=== PATIENT | female | born 1955 | race African-American/Black ===

== ENCOUNTER 2024-02-01 23:45 | Inpatient (IN) | payer MEDICARE, SELFPAY ==
[2024-02-01 18:31] VITALS: BP 120/87
[2024-02-01 19:40] LABS: % Basophils 0.4 % (0-2); % Eosinophils 1.4 % (0-6); % Immature Granulocytes 0.5 % (0-0.5); % Lymphocytes 22.5 % (20.5-51.1); % Neutrophils 66.2 % (42.2-75.2); Absolute Basophils 0.1 10^3/uL (0-0.2); Absolute Eosinophils 0.2 10^3/uL (0-0.7); Absolute Immature Granulocytes 0.1 10^3/uL (0-0.05); Absolute Monocytes 1.2 10^3/uL (0.1-0.6); Absolute Neutrophils 8.8 10^3/uL (1.4-6.5); Hematocrit 38.9 % (37.0-47.0); Hemoglobin 11.8 g/dL (12.0-16.0); Mean Corp Hgb Conc. 30.3 g/dL (33.0-37.0); Mean Corpuscular Hgb 29.4 pg (27.0-31.0); Mean Platelet Volume 9.2 fL (7.4-10.4); Nucleated Red Blood Cells % 0 %; Platelet Count 309 10^3/uL (130-400); Red Blood Cell Count 4.01 10^6/uL (4.20-5.40); Red Cell Dist. Width 13.2 % (11.5-14.5); White Blood Cell Count 13.2 10^3/uL (4.8-10.8)
[2024-02-01 19:50] LABS: INR 0.98; PT 12.8 Sec (11.4-14.6)
[2024-02-01 19:51] LABS: APTT 26.6 Sec (23.4-35.0)
[2024-02-01 19:59] LABS: ALT (SGPT) 20 U/L (0-35); AST (SGOT) 28 U/L (14-36); Alkaline Phosphatase 77 U/L (38-126); Blood Urea Nitrogen 16 mg/dl (7-17); Calcium 9.7 mg/dl (8.4-10.2); Carbon Dioxide 35 mmol/L (22-30); Chloride 99 mmol/L (98-107); Glucose 111 mg/dl (70-99); Sodium 135 mmol/L (135-145); Total Bilirubin 0.4 mg/dl (0.2-1.3); Total Protein 6.6 g/dl (6.3-8.2); eGFR > 60.00
[2024-02-01 20:00] VITALS: BP 126/85
--- NOTE | 2024-02-01 20:11 | ED.GENMED ---
History of Present Illness
<Emma Villarreal MD - Last Filed: 02/01/24 21:35>
General
Chief Complaint: Rectal Bleeding
Time Seen by Provider: 02/01/24 18:57
Travel History
Have you had any contact with someone who has COVID-19?: No
Do you have any symptoms of coronavirus? Fever > 100 degrees, chills, cough, shortness of breath, sore throat, loss of taste or smell, muscle aches, or headache?: No
<Stephen Garza PA-C - Last Filed: 02/01/24 23:23>
General
Source: patient
Exam Limitations: none
History of Present Illness
History of Present Illness:
69-year-old female with history of COPD not insulin-dependent diabetes presents complaining of increased weakness over the past several days with associated lower abdominal pain and today she developed red blood per rectum. No measurable fever.
She is followed over the past 3 days because of her weakness. She is chronically on 3 and half liters of oxygen at home. She has diffuse abdominal pain. She has a known ventral hernia. No other complaints at this time
Past History
<Emma Villarreal MD - Last Filed: 02/01/24 21:35>
Past History
ED Past Medical History: Asthma, Cancer (Remote history of breast cancer), COPD, NIDDM and Other (Chronic abdominal wall hernia, chronic abdominal pain, upper GI bleed January 2023, Chronic cough, Ulcers)
ED Past Surgical History: Cholecystectomy, Gynecological (Hysterectomy) and Other (left Lumpectomy)
Patient has exhibited threatening behavior?: No
PSI?: No
Social History
Tobacco: Former smoker
Alcohol: Occasional
Drug: None and Other
Personal:
Living: with family
Employment: Retired
Family History
Family History: Other and Unable to obtain
Phy Exam
<Stephen Garza PA-C - Last Filed: 02/01/24 23:23>
Physical Exam
Physical Exam:
General: well appearing female NAD
HEENT: Normocephalic atraumatic
Heart: Tachycardic but regular
Lungs: Mostly clear
Abdomen: Soft tender to the lower abdomen. Large ventral hernia noted. This is slightly tender. There is palpable stool within the hernia
Rectal exam: This was performed with female engineer station mainline in the room. Rectal exam shows red-colored stool is heme positive
Extremities: No cyanosis or edema
Scores
<Emma Villarreal MD - Last Filed: 02/01/24 21:35>
GI Bleed
History of cardiac failure?: No
History of hepatic failure?: No
History of recent syncope?: No
Pulse >100?: Yes
SBP <110?: No
Hgb <13 (male) <12 (female)?: Yes
BUN >18mg/dL?: No
Melena present?: No
Recommendation: Pt has higher risk for needing a medical intervention. Inpatient admission recommended.
<Stephen Garza PA-C - Last Filed: 02/01/24 23:23>
GI Bleed
Recommendation: Pt has higher risk for needing a medical intervention. Inpatient admission recommended.
Course
<Emma Villarreal MD - Last Filed: 02/01/24 21:35>
Orders/Labs/Results
Orders:
Orders
02/01/24 19:21
Type+Screen Urgent
Complete Blood Count/With Diff Urgent
Comprehensive Metabolic Panel Urgent
PTT Urgent
Prothrombin Time Urgent
02/01/24 20:35
CT Abd/pelvis W Iv Cont Urgent
Comment:
Reason For Exam: abdominal pain
02/01/24 20:47
Acetaminophen [Tylenol] 650 mg PO NOW STA
02/01/24 21:00
Diphenhydramine [Benadryl] 50 mg IV NOW STA
Hydrocortisone Sod Succinate [Solu-Cortef] 200 mg IV NOW STA
02/01/24 23:15
Piperacillin/Tazo 3.375 Gram [Zosyn] 3.375 gram in 50 ml IV NOW
Abnormal Lab Results
02/01/24
19:21
WBC 13.2 H 10^3/uL
(4.8-10.8)
RBC 4.01 L 10^6/uL
(4.20-5.40)
Hgb 11.8 L g/dL
(12.0-16.0)
MCHC 30.3 L g/dL
(33.0-37.0)
Abs Immat Gran (auto) 0.1 H 10^3/uL
(0-0.05)
Absolute Neuts (auto) 8.8 H 10^3/uL
(1.4-6.5)
Absolute Monos (auto) 1.2 H 10^3/uL
(0.1-0.6)
Carbon Dioxide 35 H mmol/L
(22-30)
Glucose 111 H mg/dl
(70-99)
02/01/24 19:21
02/01/24 19:21
Vital Signs
Initial and Last Documented VS:
Initial Vital Signs
Temp Pulse Resp BP Pulse Ox
98.2 F 130 16 120/87 96
02/01/24 18:31 02/01/24 18:31 02/01/24 18:31 02/01/24 18:31 02/01/24 18:31
Last Documented Vital Signs
Temp Pulse Resp BP Pulse Ox
98.2 F 103 24 129/72 100
02/01/24 18:31 02/01/24 23:00 02/01/24 23:00 02/01/24 22:00 02/01/24 23:00
<Stephen Garza PA-C - Last Filed: 02/01/24 23:23>
Orders/Labs/Results
Orders:
Orders
02/01/24 19:21
Type+Screen Urgent
Complete Blood Count/With Diff Urgent
Comprehensive Metabolic Panel Urgent
PTT Urgent
Prothrombin Time Urgent
02/01/24 20:35
CT Abd/pelvis W Iv Cont Urgent
Comment:
Reason For Exam: abdominal pain
02/01/24 20:47
Acetaminophen [Tylenol] 650 mg PO NOW STA
02/01/24 21:00
Diphenhydramine [Benadryl] 50 mg IV NOW STA
Hydrocortisone Sod Succinate [Solu-Cortef] 200 mg IV NOW STA
02/01/24 23:15
Piperacillin/Tazo 3.375 Gram [Zosyn] 3.375 gram in 50 ml IV NOW
Abnormal Lab Results
02/01/24
19:21
WBC 13.2 H 10^3/uL
(4.8-10.8)
RBC 4.01 L 10^6/uL
(4.20-5.40)
Hgb 11.8 L g/dL
(12.0-16.0)
MCHC 30.3 L g/dL
(33.0-37.0)
Abs Immat Gran (auto) 0.1 H 10^3/uL
(0-0.05)
Absolute Neuts (auto) 8.8 H 10^3/uL
(1.4-6.5)
Absolute Monos (auto) 1.2 H 10^3/uL
(0.1-0.6)
Carbon Dioxide 35 H mmol/L
(22-30)
Glucose 111 H mg/dl
(70-99)
02/01/24 19:21
02/01/24 19:21
Vital Signs
Initial and Last Documented VS:
Initial Vital Signs
Temp Pulse Resp BP Pulse Ox
98.2 F 130 16 120/87 96
02/01/24 18:31 02/01/24 18:31 02/01/24 18:31 02/01/24 18:31 02/01/24 18:31
Last Documented Vital Signs
Temp Pulse Resp BP Pulse Ox
98.2 F 103 24 129/72 100
02/01/24 18:31 02/01/24 23:00 02/01/24 23:00 02/01/24 22:00 02/01/24 23:00
<Stephen Garza PA-C - Last Filed: 02/01/24 23:23>
MDM/Problems Addressed
Differential Diagnosis Includes:
Abdominal pain with rectal bleeding. Differential could include hemorrhoidal bleeding versus diverticular versus infectious process. Question possible bowel obstruction secondary to large hernia
Will check labs. Patient not anticoagulated.
<Stephen Garza PA-C - Last Filed: 02/01/24 23:23>
*Critical Care Note
Total Time (30-74mins, 75-104mins- exclusive of procedures): Not Applicable
<Stephen Garza PA-C - Last Filed: 02/01/24 23:23>
Update Note
Update Note:
CT ordered secondary to pain and bleeding. CT demonstrates severe acute proctitis. There is a large hernia without sign of obstruction. There is a large amount of stool in the colon to suggest constipation. Hemoglobin 11.8. White blood cell
count is elevated at 13.2 and patient is tachycardic. Will start patient on Zosyn to cover for proctitis. Discussed with emergency room attending. Will admit to hospital
ED Attending Note
<Emma Villarreal MD - Last Filed: 02/01/24 21:35>
ED Attending Note
Patient seen and examined by attending physician: Yes
I performed the substantive portion of visit, reviewed & personally made and approve the management plan that is documented in note by myself or ALBERT.: Yes
ED Attending Note:
69-year-old female with complaints of bright red blood per rectum x 3 prior to presentation associated with increased shortness of breath and oxygen use and weakness. Patient has a large abdominal hernia which has limited ability to get a
colonoscopy in the past. Does have a history of an upper GI bleed. Denies anticoagulant use. Noted to be heme positive here in the emergency department, mild anemia noted. Patient states she typically has tachycardia. CT pending, anticipate
admission, GI consult. Stable at this time.
-
Portions of this chart may have been created with voice recognition software.� Occasional wrong word or��sound alike� substitutions may have occurred due to the inherent limitations of voice recognition software.
Discharge Plan
Departure
Patient Disposition: Admit
Date of Disposition: 02/01/24
Time of Disposition: 23:21
Admit to: Telemetry
Presentation/result/management discussed w/ accepting MD/DO: Hospitalist
Discharge Problem:
Rectal bleeding, Acute proctitis
Prescriptions:
No Action
multivitamin with folic acid [Tab-A-Charles] 1 TABLET tablet
1 tab PO DAILY
tiotropium bromide [Spiriva with HandiHaler] 18 mcg Capsule, W/Inhalation Device
1 cap INHALATION R DAILY
Corlanor 5 mg Tablet
5 mg PO BID
Linzess 145 mcg Capsule
145 mcg PO DAILY
Trintellix 20 mg Tablet
20 mg PO DAILY
fluticasone propion-salmeterol [Advair Diskus] 250-50 mcg/dose blister with device
1 inh INHALATION R BID
ondansetron HCl 8 mg tablet
8 mg PO BID
rosuvastatin 5 mg tablet
5 mg PO HS
bupropion HCl 300 mg tablet extended release 24 hr
300 mg PO DAILY
levocetirizine 5 mg tablet
5 mg PO QPM
dexlansoprazole 60 mg capsule,biphase delayed releas
60 mg PO DAILY
nifedipine 30 mg tablet extended release
30 mg PO DAILY Qty: 30 0RF
prednisone 5 mg tablet
5 mg PO BID
sennosides [senna] 8.6 mg Tablet
17.2 mg PO HS
lactulose 10 gram/15 mL (15 mL) Solution
10 g PO DAILYPRN PRN (Reason: CONSTIPATION)
levalbuterol HCl 0.63 mg/3 mL Solution For Nebulization
0.63 mg inhalation R Q6HPRN PRN (Reason: SOB or wheezing) Qty: 72 0RF
acetaminophen [Tylenol] 325 mg Tablet
1,300 mg PO BIDPRN PRN (Reason: mild stomach pains)
zolpidem [Ambien CR] 6.25 mg Tablet,Ext Release Multiphase
6.25 mg PO HSPRN PRN (Reason: sleep)
polyethylene glycol 3350 [Miralax] 17 gram powder in packet
17 g PO DAILYPRN PRN (Reason: constipation)
hydrocodone-acetaminophen 7.5-325 mg tablet
1 tab PO Q8HPRN PRN (Reason: moderate pain)
docusate sodium [Colace] 100 mg capsule
100 mg PO QPM
alprazolam 2 mg tablet
2 mg PO QIDPRN PRN (Reason: anxiety)
Referrals:
Scott Monroe CRNP [Family Provider] -
Interventions
Interventions:
*Risk Screen - Suicide Last Done: 02/01/24 18:31
*General Assessment Last Done: 02/01/24 18:31
*Neglect/Abuse Screening Last Done: 02/01/24 18:31
ED- Fall Risk Assessment Last Done: 02/01/24 19:18
*ED COVID-19 Vaccine History Last Done: 02/01/24 19:14
PU-Cbziej-Hwzhjgujxv Assessment Last Done: 02/01/24 19:18
ED- Cardiac Assessment Last Done: 02/01/24 19:18
ED- Pulmonary Assessment Last Done: 02/01/24 19:18
Discharge Date and Time
Print Language: POLISH
[2024-02-01] MEDS: TYLENOL 650 MG PO (20:56)
[2024-02-01 21:00] VITALS: BP 108/67
[2024-02-01] MEDS: SOLU-CORTEF 200 MG IV (21:04)
[2024-02-01] MEDS: BENADRYL 50 MG IV (21:05)
[2024-02-01 22:00] VITALS: BP 129/72
[2024-02-01] MEDS: ZOSYN 50 IV (23:50)
[2024-02-01 23:51] VITALS: BP 141/91
--- NOTE | 2024-02-01 23:56 | HPS.HSE ---
Family Physician
-
Family Physician: Scott Monroe
Chief Complaint
-
Rectal Pain / Bleeding
History of Present Illness
Patient is a 69y F with PMH significant for severe COPD, large ventral hernia and chronic hypoxemia and hypercapnia who presents to ED complaining of rectal discomfort and bleeding. History obtained from patient and ED staff. At the time of my
examination, patient is quite somnolent and has limited ability to contribute to this history. She reports lower abdominal discomfort and noted some blood in the stool. Not clear how long this has been present.
No noted N/V. She has a large ventral hernia which is chronic and not significantly changed.
Patient is on chronic NC O2 at home, but is noted to be 100% SpO2 on room air here in the ED.
Medical History
Past Medical History
Past Medical History: Reports Other
Additional Past Medical History:
COPD
Chronic Hypoxemic and Hypercapnic Respiratory Failure
Anxiety / Depression
History of Breast Cancer s/p Surgery, Chemo and XRT
Large Ventral Hernia
Past Surgical History: Reports Other
Additional Past Surgical History:
Lumpectomy
Social History
Tobacco: Former Smoker (Quit 1-2 years ago. > 40 pack years total use.)
Alcohol: None
Drug: None
Living: With Family
Family History
Family History: Not pertinent
Allergies / Home Medications
Allergies reflects when Allergies were last updated in [employer].
Home Medications with original date entered in [facility]
Allergy/Medication List:
Allergies
Allergy/AdvReac Type Severity Reaction Status Date / Time
Iodinated Contrast Media Allergy Tongue Verified 02/01/24 18:31
Swelling
Iodine and Iodide Containing Allergy Tongue Verified 02/01/24 18:31
Produc Swelling
shellfish derived Allergy Tongue Verified 02/01/24 18:31
Swelling
aspirin AdvReac Nausea / Verified 02/01/24 18:31
Vomiting
Home Medications
multivitamin with folic acid 400 mcg tablet (Tab-A-Charles) 1 tab PO DAILY Supplement 02/28/22
bupropion HCl 300 mg 24 hr tablet, extended release 300 mg PO DAILY Mental Health/Anxiety 02/04/23
dexlansoprazole 60 mg capsule,biphase delayed release 60 mg PO DAILY Gastrointestinal issue 02/04/23
fluticasone 250 mcg-salmeterol 50 mcg/dose blistr powdr for inhalation (Advair Diskus) 1 inh inhalation R BID Lung/breathing issues 02/04/23
ivabradine 5 mg tablet (Corlanor) 5 mg PO BID Heart disease/condition 02/04/23
levocetirizine 5 mg tablet 5 mg PO QPM Allergies 02/04/23
linaclotide 145 mcg capsule (Linzess) 145 mcg PO DAILY Constipation 02/04/23
ondansetron HCl 8 mg tablet 8 mg PO BID 02/04/23
rosuvastatin 5 mg tablet 5 mg PO HS High cholesterol 02/04/23
tiotropium bromide 18 mcg capsule with inhalation device (Spiriva with HandiHaler) 1 cap inhalation R DAILY Lung/breathing issues 02/04/23
vortioxetine 20 mg tablet (Trintellix) 20 mg PO DAILY Mental Health/Anxiety 02/04/23
nifedipine 30 mg tablet,extended release 30 mg PO DAILY #30 tabs 02/12/23
prednisone 5 mg tablet 5 mg PO BID Anti-Inflammatory 05/30/23
lactulose 10 gram/15 mL (15 mL) oral solution 10 g PO DAILYPRN PRN CONSTIPATION 05/31/23
sennosides 8.6 mg tablet (senna) 17.2 mg PO HS Constipation 05/31/23
levalbuterol HCl 0.63 mg/3 mL solution for nebulization 0.63 mg (3 mL) inhalation R Q6HPRN PRN SOB or wheezing #72 mL 06/05/23
acetaminophen 325 mg tablet (Tylenol) 1,300 mg PO BIDPRN PRN mild stomach pains 02/01/24
alprazolam 2 mg tablet 2 mg PO QIDPRN PRN anxiety 02/01/24
docusate sodium 100 mg capsule (Colace) 100 mg PO QPM Constipation 02/01/24
hydrocodone 7.5 mg-acetaminophen 325 mg tablet 1 tab PO Q8HPRN PRN moderate pain 02/01/24
polyethylene glycol 3350 17 gram oral powder packet (Miralax) 17 g PO DAILYPRN PRN constipation 02/01/24
zolpidem 6.25 mg tablet,extended release,multiphase (Ambien CR) 6.25 mg PO HSPRN PRN sleep 02/01/24
Review of Systems
-
History Source: Patient (Limited ROS due to somnolence)
A 12 point ROS was completed and negative except as noted: Yes
Constitutional: Denies Fever
Respiratory: Reports Trouble Breathing; Denies Cough
Cardiac: Denies Chest Pain
Abdomen/GI: Reports Abdominal Pain, Constipated and Bloody Stools; Denies Nausea or Vomiting
: Denies Dysuria
Neurological: Denies Headache
Physical Exam
Vital Signs
Vital Signs
Temp Pulse Resp BP Pulse Ox
97.7 F 106 32 141/91 97
02/01/24 23:51 02/01/24 23:51 02/01/24 23:51 02/01/24 23:51 02/01/24 23:51
Physical Exam
General: Other (69y F somnolent in the ED. Awakens to answer Y/N questions but falls quickly back to sleep. Does not answer long form / open ended questions.)
HEENT: Moist mucous membranes and PERRLA
Respiratory: Other (Decreased at Bases. No W/R/R.)
Cardiac: S1/S2 and Regular Rhythm; No Murmur
GI: Other (Large ventral hernia is appreciated. Mild tenderness. Rectal with BRB / heme positive.)
Musculoskeletal: No Clubbing, No Cyanosis and No Edema
Neuro: Other (Somnolent as noted above.)
Laboratory Results
-
02/01/24 19:21
02/01/24 19:21
Laboratory Results
PT 12.8 Sec (11.4-14.6) 02/01/24 19:21
INR 0.98 02/01/24 19:21
APTT 26.6 Sec (23.4-35.0) 02/01/24 19:
Total Bilirubin 0.4 mg/dl (0.2-1.3) 02/01/24 19:21
AST 28 U/L (14-36) 02/01/24 19:21
ALT 20 U/L (0-35) 02/01/24 19:21
Alkaline Phosphatase 77 U/L (38-126) 02/01/24 19:21
Impression/Plan
-
A/P: Patient is a 69y F with PMH significant for COPD, chronic mixed respiratory failure and large ventral hernia who presents to ED complaining of abdominal pain and BRBPR.
Acute Proctitis
BRBPR secondary to the above
- Admit for further evaluation and treatment.
- ? infectious (likely) versus ischemic versus other.
- IV abx for now.
- Follow H&H and monitor for any new / worsening symptoms.
- GI evaluation.
- CT scan with additional abnormalities including SEED TECHNICIAN inflammation - ? secondary to proctitis versus primary SEED TECHNICIAN issue.
- Consider SEED TECHNICIAN eval inpatient / outpatient.
Acute on Chronic Hypercapnic Respiratory Failure
Chronic Hypoxemic Respiratory Failure
Severe COPD
- Patient somnolent in the ED with very good oxygen saturations on minimal / no supplemental O2.
- Concern for hypercapnia and will check VBG now.
- Begin PAP therapy if CO2 levels are elevated.
- Continue usual outpatient inhaled medications.
- No active wheezing appreciated on exam. No recent cough, fevers /chills, etc.
- Adjust O2 supplementation for acceptable SpO2, but to avoid hypercapnia if possible.
- Patient denies any current PAP use or similar - though she was on CPAP and / or Trilogy in the past.
- Avoid high rates of O2 flow for subjective dyspnea without hypoxemia.
Large Ventral Hernia
- Hernia seen on CT scan with included bowel and portion of the liver.
- No evidence of obstruction / apparent strangulation / etc.
- Chronic issue and suspect would be prohibitive repair given size, underlying pulmonary issues, etc.
- Follow for any new / worsening symptoms.
Anxiety / Depression
- Stable. Patient on multiple meds - including Ambien, Ativan, etc.
- Would try to decrease / minimize sedating agents - especially given hypercapnia issues.
- Continue Wellbutrin / Trintellix / etc.
- Follow for any new / worsening symptoms.
Chronic Anemia
GERD / PUD
- Stable. Hgb is actually higher than usual baseline despite rectal bleeding.
- Continue daily PPI.
DVT Prophylaxis: Subcut Heparin
Code Status: Full
[2024-02-01 23:57] LABS: Venous Blood Gas B.E. 10.5 mmol/L (-4 to +4); Venous Blood Gas HCO3 37.5 mmol/L (22-27); Venous Blood Gas O2 Sat % 98.6 %; Venous Blood Gas pCO2 62 mmHg (35-48); Venous Blood Gas pH 7.39 (7.32-7.43); Venous Blood Gas pO2 114 mmHg (30-50)
[2024-02-02] VITALS (17 sets, daily range): BP systolic 106–142; BP diastolic 60–90; PULSE 105–130; O2SAT 94–95; BMI 20.2; BMI 20.4
[2024-02-02 01:09] LABS: Hematocrit 37.7 % (37.0-47.0)
[2024-02-02] MEDS: MORPHINE SULFATE 2 MG IV ×3 (01:12→17:24)
[2024-02-02] MEDS: COMPAZINE 5 MG IV ×2 (01:12→18:37)
[2024-02-02 01:55] LABS: TSH Reflex To Free T4 0.22 uIU/ml (0.47-4.68)
[2024-02-02 02:25] LABS: Free T4 1.39 ng/dl (0.78-2.19)
--- NOTE | 2024-02-02 02:44 | PTCARENOTE ---
pt admitted from ED, pt is AAOx3- able to make needs known. large abdominal hernia present, pt states abdomen is painful specifically right side. pt medicated with PRN morphine. 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
ordered and given. pt on 2.5L of oxygen at home, on 2L NC 99%. no SOB but some wheezes noted. pt oriented to room, call jackson within reach, care ongoing.
[2024-02-02 05:13] LABS: Hematocrit 34.8 % (37.0-47.0); Hemoglobin 11.2 g/dL (12.0-16.0); Mean Corp Hgb Conc. 32.2 g/dL (33.0-37.0); Mean Corpuscular Hgb 29.8 pg (27.0-31.0); Mean Corpuscular Volume 92.6 fL (81.0-99.0); Mean Platelet Volume 9.1 fL (7.4-10.4); Platelet Count 290 10^3/uL (130-400); Red Blood Cell Count 3.76 10^6/uL (4.20-5.40); Red Cell Dist. Width 13.2 % (11.5-14.5); White Blood Cell Count 9.8 10^3/uL (4.8-10.8)
[2024-02-02] MEDS: ZOSYN 50 IV ×3 (05:19→17:24)
[2024-02-02] MEDS: LINZESS 145 MCG PO (05:19)
[2024-02-02 06:24] LABS: Blood Urea Nitrogen 13 mg/dl (7-17); Calcium 9.2 mg/dl (8.4-10.2); Carbon Dioxide 32 mmol/L (22-30); Chloride 100 mmol/L (98-107); Estimated Creatinine Clearance 70 ml/min; Glucose 133 mg/dl (70-99); Potassium 4.1 mmol/L (3.5-5.1); Sodium 134 mmol/L (135-145); eGFR > 60.00
[2024-02-02] MEDS: SPIRIVA RESPIMAT 2.5 MCG 2 PUFF INH (08:07)
[2024-02-02] MEDS: ADVAIR HFA 115/21 MCG INHALER 2 PUFF INH ×2 (08:07→18:16)
[2024-02-02] MEDS: WELLBUTRIN XL (24 hour extended release) 300 MG PO (08:08)
[2024-02-02] MEDS: NSS (PRESERVATIVE FREE) 10 ML IV (08:08)
[2024-02-02] MEDS: COLACE 100 MG PO ×2 (08:08→21:16)
[2024-02-02] MEDS: PROTONIX IV 40 MG IV (08:08)
[2024-02-02] MEDS: DELTASONE 5 MG PO ×2 (08:08→21:16)
[2024-02-02] MEDS: PROCARDIA XL (EXTENDED RELEASE) 30 MG PO (08:08)
--- NOTE | 2024-02-02 08:10 | CON.GI ---
Consultation
-
Date/Time Consultation Performed: 02/02/24
Performing Provider: Ar Bullock MD
Reason for Consultation: abdominal pain, abnormal CT
Medical History
Chief Complaint / HPI
Chief Complaint: abdominal pain
History of Present Illness:
The patient is a 69-year-old female past medical history as noted presents with abdominal pain and bleeding. She has chronic abdominal pain related to her large ventral hernia which has been chronic. More recently she has had intermittent pain
related to this especially when she feels more constipated. She has had some bright red blood with bowel movements as well, and felt fatigued yesterday so came to the emergency room where she was found to have a hemoglobin that is better than her
usual baseline. CT scan showed significant proctitis as well as multiple other abnormalities including pelvic organ prolapse, again the large midline hernia, diverticulosis and large fecal material, along with paraesophageal hernia and mild biliary
dilation. The proctitis was not noted on CT scan from October. She has had 2 colonoscopies at the [facility] over the past 10 years which have been okay by her report. She did have an endoscopy in February 2023 after coffee-ground
emesis after intubation and was noted to have severe esophagitis. She did not follow-up for repeat endoscopy. She usually follows up with [facility] though has been hesitant to do any further procedures given her severe COPD. She
denies any dysphagia, odynophagia, nausea or vomiting now.
Past Medical History
Past Medical History: Other (severe COPD, large ventral hernia and chronic hypoxemia and hypercapnia, Anxiety / Depression History of Breast Cancer s/p Surgery, Chemo and XRT)
Past Surgical History: Other (Lumpectomy)
Social History
Tobacco: Former Smoker
Alcohol: None
Family History
Family History: Reviewed & Not Pertinent
Allergies / Home Medications
Allergy/AdvReac Type Severity Reaction Status Date / Time
Iodinated Contrast Media Allergy Tongue Verified 02/01/24 18:31
Swelling
Iodine and Iodide Containing Allergy Tongue Verified 02/01/24 18:31
Produc Swelling
shellfish derived Allergy Tongue Verified 02/01/24 18:31
Swelling
aspirin AdvReac Nausea / Verified 02/01/24 18:31
Vomiting
�Medication �Instructions �Recorded
multivitamin with folic acid 400 1 tab PO DAILY Supplement 02/28/22
mcg tablet (Tab-A-Charles)
bupropion HCl 300 mg 24 hr tablet, 300 mg PO DAILY Mental 02/04/23
extended release Health/Anxiety
dexlansoprazole 60 mg 60 mg PO DAILY Gastrointestinal 02/04/23
capsule,biphase delayed release issue
fluticasone 250 mcg-salmeterol 50 1 inh inhalation R BID 02/04/23
mcg/dose blistr powdr for Lung/breathing issues
inhalation (Advair Diskus)
ivabradine 5 mg tablet (Corlanor) 5 mg PO BID Heart disease/condition 02/04/23
levocetirizine 5 mg tablet 5 mg PO QPM Allergies 02/04/23
linaclotide 145 mcg capsule 145 mcg PO DAILY Constipation 02/04/23
(Linzess)
ondansetron HCl 8 mg tablet 8 mg PO BID 02/04/23
rosuvastatin 5 mg tablet 5 mg PO HS High cholesterol 02/04/23
tiotropium bromide 18 mcg capsule 1 cap inhalation R DAILY 02/04/23
with inhalation device (Spiriva Lung/breathing issues
with HandiHaler)
vortioxetine 20 mg tablet 20 mg PO DAILY Mental 02/04/23
(Trintellix) Health/Anxiety
nifedipine 30 mg tablet,extended 30 mg PO DAILY #30 tabs 02/12/23
release
prednisone 5 mg tablet 5 mg PO BID Anti-Inflammatory 05/30/23
lactulose 10 gram/15 mL (15 mL) 10 g PO DAILYPRN PRN CONSTIPATION 05/31/23
oral solution
sennosides 8.6 mg tablet (senna) 17.2 mg PO HS Constipation 05/31/23
levalbuterol HCl 0.63 mg/3 mL 0.63 mg (3 mL) inhalation R Q6HPRN 06/05/23
solution for nebulization PRN SOB or wheezing #72 mL
acetaminophen 325 mg tablet 1,300 mg PO BIDPRN PRN mild 02/01/24
(Tylenol) stomach pains
alprazolam 2 mg tablet 2 mg PO QIDPRN PRN anxiety 02/01/24
docusate sodium 100 mg capsule 100 mg PO QPM Constipation 02/01/24
(Colace)
hydrocodone 7.5 mg-acetaminophen 1 tab PO Q8HPRN PRN moderate pain 02/01/24
325 mg tablet
polyethylene glycol 3350 17 gram 17 g PO DAILYPRN PRN constipation 02/01/24
oral powder packet (Miralax)
zolpidem 6.25 mg tablet,extended 6.25 mg PO HSPRN PRN sleep 02/01/24
release,multiphase (Ambien CR)
Review of Systems
-
All other systems: A 12 pt ROS was Negative except as stated above in HPI
Vital Signs
Temp Pulse Resp BP Pulse Ox
97.9 F 97 23 111/79 99
02/02/24 03:35 02/02/24 06:00 02/02/24 06:00 02/02/24 06:00 02/02/24 04:00
Physical Exam
Exam
General: NAD
HEENT: MMM, anicteric, no lymphadenopathy
Heart: Regular, no murmurs
Lungs: Decreased breath sounds bilaterally
Abdomen: normal bowel sounds, soft, no tenderness, no rebound or guarding, large midline hernia which is soft
Extremeties: no edema
Skin: no rashes
Results
WBC 9.8 10^3/uL (4.8-10.8) 02/02/24 04:53
Hgb 11.2 g/dL (12.0-16.0) L 02/02/24 04:53
Hct 34.8 % (37.0-47.0) L 02/02/24 04:53
MCV 92.6 fL (81.0-99.0) 02/02/24 04:53
Plt Count 290 10^3/uL (130-400) 02/02/24 04:53
Absolute Neuts (auto) 8.8 10^3/uL (1.4-6.5) H 02/01/24 19:21
PT 12.8 Sec (11.4-14.6) 02/01/24 19:21
INR 0.98 02/01/24 19:21
APTT 26.6 Sec (23.4-35.0) 02/01/24 19:21
Sodium 134 mmol/L (135-145) L 02/02/24 04:53
Potassium 4.1 mmol/L (3.5-5.1) 02/02/24 04:53
Chloride 100 mmol/L (98-107) 02/02/24 04:53
Carbon Dioxide 32 mmol/L (22-30) H 02/02/24 04:53
BUN 13 mg/dl (7-17) 02/02/24 04:53
Creatinine 0.5 mg/dL (0.6-1.0) L 02/02/24 04:53
Calcium 9.2 mg/dl (8.4-10.2) 02/02/24 04:53
Total Bilirubin 0.4 mg/dl (0.2-1.3) 02/01/24 19:21
AST 28 U/L (14-36) 02/01/24 19:21
ALT 20 U/L (0-35) 02/01/24 19:21
Alkaline Phosphatase 77 U/L (38-126) 02/01/24 19:21
Diagnostic Image Results:
CT:
IMPRESSION:
1. Moderate circumferential irregular wall thickening and submucosal edema in the rectum which is new from 11/05/2023 and is likely secondary to an ACUTE INFECTIOUS or INFLAMMATORY PROCTITIS. Rectal adenocarcinoma is a less likely alternative
diagnostic possibility.
2. PELVIC ORGAN PROLAPSE with a cystocele, vaginal prolapse, and rectocele. Large amount of soft tissue thickening around the vagina which could be inflammatory or infectious in etiology. Vaginal carcinoma is an alternative diagnostic possibility.
3. Moderate diverticulosis in the sigmoid and descending colon.
4. LARGE MIDLINE SUPRAUMBILICAL ANTERIOR ABDOMINAL WALL HERNIA containing distended fecal filled loops of transverse colon and the lateral segment of the left lobe of the liver.
5. Large amount of fecal material in the ascending and transverse colon consistent with CONSTIPATION.
6. Moderate-sized paraesophageal hiatal hernia.
7. Mild biliary dilatation which appears to be secondary to previous cholecystectomy.
8. Severe calcific atherosclerotic plaque in the abdominal aorta.
9. 4.2 cm cyst, seroma, or lymphocele in the left side of the pelvis which appears unchanged.
10. Severe discogenic degenerative disease in the lower lumbar spine.
11. Mild bronchiolitis in the lower lungs.
Prior GI Procedures:
EGD:
03/20:
Impression: - Severe esophagitis with ulceration and large
overlying clot
- Erosive gastropathy with stigmata of recent bleeding.
- Normal examined duodenum.
- No specimens collected.
Colonoscopy:
Assessment / Plan
-
1. Bright red blood per rectum: With proctitis noted on CT scan which was not present on October CT scan, more likely from stercoral proctitis given her chronic constipation which is multifactorial. Her hemoglobin is better than baseline and
remained stable, no signs of brisk active bleeding now. She has had 2 colonoscopies over the past 10 years, and underlying malignancy is very unlikely though not completely excluded. At this point would continue supportive care, clear liquids for
now. Will plan unsedated flexible sigmoidoscopy on Sunday.
-
-
Thank you for consultation and allowing me to participate in the patient's care. Please call the recreation specialist GI physician during the after hours with any questions or concerns.
[2024-02-02 09:17] LABS: Hemoglobin 11.5 g/dL (12.0-16.0)
--- NOTE | 2024-02-02 10:14 | W.PN.HOSP.TC ---
Today's Communication/Plan
-
Continue with antibiotics. Await GI input. Continue with clear liquids.
Consult SUPERVISOR COLOR MAKING.
BiPAP as needed with change in mental status
Assessment / Plan
Assessment / Plan
A/P: Patient is a 69y F with PMH significant for COPD, chronic mixed respiratory failure and large ventral hernia who presents to ED complaining of abdominal pain and BRBPR.
Acute Proctitis
BRBPR secondary to the above
- Admit for further evaluation and treatment.
- ? infectious (likely) versus ischemic versus other.
- IV abx for now.
- Follow H&H and monitor for any new / worsening symptoms.
- GI evaluation.
- CT scan with additional abnormalities including SUPERVISOR COLOR MAKING inflammation - ? secondary to proctitis versus primary SUPERVISOR COLOR MAKING issue.
- Consult SUPERVISOR COLOR MAKING for eval
Chronic Hypercapnic hypoxemic respiratory Failure-no acute component.
Intolerant of BiPAP set up at home [was set up after recent discharge from the hospital]
Compensated respiratory acidosis
Chronic O2 use-2 L
Severe COPD without flare
- Patient is alert without any respiratory distress. Saturating well on 2 L which is her home O2.
- Continue usual outpatient inhaled medications. Continue the home O2
- No active wheezing appreciated on exam. No recent cough, fevers /chills, etc.
- Continue to encourage use of BiPAP at home. Use BiPAP as needed in the hospital. Stressed about the importance of BiPAP to prevent respiratory complications.
Large Ventral Hernia
- Hernia seen on CT scan with included bowel and portion of the liver.
- No evidence of obstruction / apparent strangulation / etc.
- Chronic issue and suspect would be prohibitive repair given size, underlying pulmonary issues, etc.
- Follow for any new / worsening symptoms.
Anxiety / Depression
- Stable. Patient on multiple meds - including Ambien, Ativan, etc.
- Would try to decrease / minimize sedating agents - especially given hypercapnia issues.
- Continue Wellbutrin / Trintellix / etc.
- Follow for any new / worsening symptoms.
Chronic Anemia
GERD / PUD
- Stable. Hgb is actually higher than usual baseline despite rectal bleeding.
- Continue daily PPI.
DVT Prophylaxis: Subcut Heparin
Code Status: Full
Total time spent on today's encounter was 52 minutes which included time spent in counseling the patient regarding diagnosis and treatment plan as listed above, goals of care, and symptom management. Case was discussed with nursing staff,
specialists, and care coordinators/case management. All labs and imaging personally reviewed by me. Remainder the time spent in detailed review of previous records, lab data, imaging, and other medical provider documentation.
Anticipated Discharge: > 48 hours
Subjective/Interval History
-
Date of Service: February 02, 2024
Rectal pain is okay.
Denies any further rectal bleeding this morning.
No nausea vomiting.
Denies any fever or chills.
Denies any pelvic organ prolapse. Denies any vaginal prolapse. Denies any vaginal symptoms. She is noticing some issues with urinary stream sometimes she has to strain little harder.
Objective Data
-
Labs:
Laboratory Results
02/02/24 02/02/24 02/02/24
01:04 04:53 08:56
WBC 9.8
Hgb 12.0 11.2 L 11.5 L
Hct 37.7 34.8 L 36.0 L
Plt Count 290
Sodium 134 L
Potassium 4.1
Chloride 100
Carbon Dioxide 32 H
BUN 13
Creatinine 0.5 L
Glucose 133 H
Calcium 9.2
02/02/24
16:30
WBC
Hgb Pending
Hct Pending
Plt Count
Sodium
Potassium
Chloride
Carbon Dioxide
BUN
Creatinine
Glucose
Calcium
Vital Signs:
Vital Signs
Temp Pulse Resp BP Pulse Ox
98.1 F 102 16 112/60 96
02/02/24 07:18 02/02/24 08:22 02/02/24 08:22 02/02/24 08:08 02/02/24 08:22
I&O
02/01/24 02/02/24 02/03/24
06:59 06:59 06:59
Intake Total 290 / 290
Balance 290 / 290
Review of Systems
-
Constitutional: Denies Fever
EENT: Denies Sore Throat
Respiratory: Reports Trouble Breathing (Chronically short of breath from COPD. Denies any neurochanges.); Denies Cough
Cardiac: Denies Chest Pain
Genitourinary: Denies Dysuria
Neuro: Denies Dizzy
Physical Exam
-
General: No Apparent Distress
HEENT: Moist Mucous Membranes
Respiratory: Non Labored Respirations and Decreased Breath Sounds (In general); Negative Wheezes, Crackles or Accessory Resp Muscle Use
Cardiac: Regular Rhythm, S1/S2 and Tachycardic
GI: Soft, Nontender, Nondistended, Normal Bowel Sounds and Other (Ventral hernia)
Neuro: AO x 3
Psych: Calm
Data Reviewed
-
CT Scan: Report Reviewed by me (ct a/p)
Labs: Labs Reviewed by me
[2024-02-02] MEDS: XANAX 2 MG PO ×2 (13:08→21:16)
--- NOTE | 2024-02-02 17:03 | CON.MD ---
Addendum entered and electronically signed by Maribel Lynch DO 02/02/24 17:52:
Possible underlying tissue inflammatory response related to surrounding inflammatory process/proctitis no overt abnormal external findings of vulva/vagina showing inflammation, edema or swelling, infection.
Original Note:
Consultation - Medical
-
69 yo MP female was admitted with c/o BRBPR and dx proctitis. Consult requested due to CT imaging demonstrating 'large amount of soft tissue thickening in the perineum and around the vagina. ' Pt had hx of total hysterectomy and unilateral
oopherectomy (she is unsure which side) performed due to hemorrhage.
She denies any pelvic pain or abnormal vaginal discharge. No itching or burning.
PMH: breast cancer s/p lumpectomy, Chemo, XRT; acute proctitis, COPD, chronic hypoexmic hypercapneic respiratory failure, anxiety/depression, ventral hernia
PSH: lumpectomy, total hysterectomy unilat oopherectomy
ALL: IV contrast, shellfish, aspirin
Meds: reviewed
Sochx: quit tobacco 1-2 yrs ago (>40 yr use), denies Etoh, drug use
Famx: noncontributory
ROS: does not add
PE:
large ventral hernia noted
Vulvar skin without concerning lesions or swelling. Perineum normal appearance, no swelling or edema.
Vaginal tissue atrophic lining, pink, smooth, no swelling, edema or lesions. No abnormal discharge/no discharge noted
Urethra normal appearance.
Stage 2 cystocele, stage 2 rectocele.
Bimanual exam: nontender, no fullness or masses palpable
A/P: CT findings of soft tissue thickening in perineum and around vagina- no visible abnormalities identified on exam
Unclear explanation for CT findings. No evidence of infection, lesions/neoplasm.
Cystocele/rectocele-pt asymptomatic. No intervention needed if asymptomatic.
Culture swab collected from vagina.
Will sign off unless needed.
time 30 min with more than 50% face to face with pt
[2024-02-02] MEDS: ZYRTEC 5 MG PO (17:23)
--- NOTE | 2024-02-02 17:43 | PTCARENOTE ---
Assumed care of patient at beginning of this shift from previous RN. Patient tolerating clear liquid diet; requested saltine crackers which Dr Bullock said she could have. Patient tolerated crackers. Dr Lynch in to see patient and exam; culture
obtained and at the bedside. She stated she will enter order; will send once ordered. OOB to chair and commode today with 1 person assistance. See worklist for full assessment and vital signs; see MAR for med administration.
[2024-02-02 18:18] LABS: Hematocrit 34.2 % (37.0-47.0); Hemoglobin 11.1 g/dL (12.0-16.0)
[2024-02-02] MEDS: CRESTOR 5 MG PO (21:13)
[2024-02-02] MEDS: SENOKOT 17.1999999999999993 MG PO (21:13)
--- NOTE | 2024-02-02 21:49 | PTCARENOTE ---
Received pt at start of shift. aaox3, very pleasant. c/o pain/tenderness in abdomen. Denies passing gas, no BM today. Remains on 2LNC, tachypneic. ST on monitor, no CP. No N/V. PT stated her abdomen in swollen and bigger than normal. BS present. BA
on for precautions, rings appropriately. Xanax given HS. WIll continue to monitor.
[2024-02-03] VITALS (11 sets, daily range): BP systolic 117–160; BP diastolic 75–110; BMI 20.1
[2024-02-03] MEDS: ZOSYN 50 IV ×5 (00:48→23:42)
[2024-02-03] MEDS: MORPHINE SULFATE 2 MG IV ×5 (04:40→22:29)
[2024-02-03 05:35] LABS: Hematocrit 35.7 % (37.0-47.0); Hemoglobin 11.3 g/dL (12.0-16.0); Mean Corp Hgb Conc. 31.7 g/dL (33.0-37.0); Mean Corpuscular Hgb 29.5 pg (27.0-31.0); Mean Corpuscular Volume 93.2 fL (81.0-99.0); Mean Platelet Volume 9.2 fL (7.4-10.4); Platelet Count 282 10^3/uL (130-400); Red Blood Cell Count 3.83 10^6/uL (4.20-5.40); Red Cell Dist. Width 13.3 % (11.5-14.5); White Blood Cell Count 9.9 10^3/uL (4.8-10.8)
[2024-02-03] MEDS: COMPAZINE 5 MG IV (05:51)
[2024-02-03 05:59] LABS: Blood Urea Nitrogen 10 mg/dl (7-17); Calcium 9.3 mg/dl (8.4-10.2); Carbon Dioxide 33 mmol/L (22-30); Chloride 97 mmol/L (98-107); Estimated Creatinine Clearance 70 ml/min; Glucose 122 mg/dl (70-99); Sodium 134 mmol/L (135-145); eGFR > 60.00
[2024-02-03] MEDS: LINZESS 145 MCG PO (06:09)
[2024-02-03] MEDS: SPIRIVA RESPIMAT 2.5 MCG 2 PUFF INH (07:34)
[2024-02-03] MEDS: ADVAIR HFA 115/21 MCG INHALER 2 PUFF INH ×2 (07:34→18:06)
--- NOTE | 2024-02-03 07:35 | W.PN.GI.CBS2 ---
Today's Communication / Plan
-
See assessment and plan for details.
Assessment / Plan
-
1. Bright red blood per rectum: With proctitis noted on CT scan which was not present on October CT scan, more likely from stercoral proctitis given her chronic constipation which is multifactorial. Her hemoglobin is better than baseline and
remained stable, no signs of brisk active bleeding now. She has had 2 colonoscopies over the past 10 years, and underlying malignancy is very unlikely though not completely excluded. Advance to full liquids today, plan unsedated flexible
sigmoidoscopy tomorrow to evaluate proctitis to rule out malignancy which again seems less likely.
Subjective
Subjective
Date of Service: February 03, 2024
Patient feeling okay, some mild discomfort and minimal nausea yesterday but no vomiting, no bowel movements, no bleeding.
Objective
Data Reviewed
Laboratory Data:
Laboratory Results
02/03/24 05:02
02/03/24 05:02
Laboratory Results
PT 12.8 Sec (11.4-14.6) 02/01/24 19:21
INR 0.98 02/01/24 19:21
APTT 26.6 Sec (23.4-35.0) 02/01/24 19:21
Total Bilirubin 0.4 mg/dl (0.2-1.3) 02/01/24 19:21
AST 28 U/L (14-36) 02/01/24 19:21
ALT 20 U/L (0-35) 02/01/24 19:21
Alkaline Phosphatase 77 U/L (38-126) 02/01/24 19:21
Vital Signs and I&O:
Vital Signs
Temp Pulse Resp BP Pulse Ox
97.5 F 99 30 145/110 98
02/03/24 03:45 02/03/24 06:00 02/03/24 06:00 02/03/24 06:00 02/03/24 06:00
I&O
02/02/24 02/03/24 02/04/24
06:59 06:59 06:59
Intake Total 290 / 290
Output Total 200 / 200
Balance 290 / 290 -200 / -200
Physical Exam
Physical Exam
General: NAD
Abdomen: normal bowel sounds, soft, no tenderness, no masses or bruits, no ascites, significant midline hernia that was soft without tenderness
[2024-02-03] MEDS: XANAX 2 MG PO ×4 (08:11→21:10)
[2024-02-03] MEDS: NSS (PRESERVATIVE FREE) 10 ML IV (08:12)
[2024-02-03] MEDS: PROTONIX IV 40 MG IV (08:12)
[2024-02-03] MEDS: DELTASONE 5 MG PO ×2 (08:13→21:11)
[2024-02-03] MEDS: PROCARDIA XL (EXTENDED RELEASE) 30 MG PO (08:13)
[2024-02-03] MEDS: COLACE 100 MG PO ×2 (08:14→21:11)
[2024-02-03] MEDS: WELLBUTRIN XL (24 hour extended release) 300 MG PO (08:14)
--- NOTE | 2024-02-03 08:52 | W.PN.HOSP.TC ---
Today's Communication/Plan
-
Transfer to [facility]
Continue with antibiotic and bowel regimen
Assessment / Plan
Assessment / Plan
A/P: Patient is a 69y F with PMH significant for COPD, chronic mixed respiratory failure and large ventral hernia who presents to ED complaining of abdominal pain and BRBPR.
Acute Proctitis
BRBPR secondary to the above
- ? infectious (likely) versus ischemic versus other.
- Afebrile and normal white count. Tolerating liquid diet. H&H stable.
- cw IV abx for now.
- GI evaluation noted - cw abx, bowel regimen. Flex samy in am.
- CT scan with additional abnormalities including SEARCH ENGINE OPTIMIZATION SPECIALIST inflammation - ? secondary to proctitis versus primary SEARCH ENGINE OPTIMIZATION SPECIALIST issue.
- SEARCH ENGINE OPTIMIZATION SPECIALIST input noted - CT findings of soft tissue thickening in perineum and around vagina- no visible abnormalities identified on exam
Unclear explanation for CT findings. No evidence of infection, lesions/neoplasm.
Cystocele/rectocele-pt asymptomatic. No intervention needed if asymptomatic.
SEARCH ENGINE OPTIMIZATION SPECIALIST signed off.
Chronic Hypercapnic hypoxemic respiratory Failure-no acute component.
Intolerant of BiPAP set up at home [was set up after recent discharge from the hospital]
Compensated respiratory acidosis
Chronic O2 use-2 L
Severe COPD without flare
- Patient is alert without any respiratory distress. Saturating well on 2 L which is her home O2.
- Continue usual outpatient inhaled medications. Continue the home O2
- No active wheezing appreciated on exam. No recent cough, fevers /chills, etc.
- Continue to encourage use of BiPAP at home. Use BiPAP as needed in the hospital. Stressed about the importance of BiPAP to prevent respiratory complications.
Large Ventral Hernia
- Hernia seen on CT scan with included bowel and portion of the liver.
- No evidence of obstruction / apparent strangulation / etc.
- Chronic issue and suspect would be prohibitive repair given size, underlying pulmonary issues, etc.
- Follow for any new / worsening symptoms.
Anxiety / Depression
- Stable. Patient on multiple meds - including Ambien, Ativan, etc.
- Would try to decrease / minimize sedating agents - especially given hypercapnia issues.
- Continue Wellbutrin / Trintellix / etc.
- Follow for any new / worsening symptoms.
Chronic Anemia
GERD / PUD
- Stable. Hgb is actually higher than usual baseline despite rectal bleeding.
- Continue daily PPI.
DVT Prophylaxis: Subcut Heparin
Code Status: Full
Tx to med surg
Anticipated Discharge: 24 - 48 hours
Subjective/Interval History
-
Date of Service: February 03, 2024
No further rectal bleeding. No bowel movement.
Vague abdominal discomfort but no nausea vomiting. Tolerating liquid diet.
No fever or chills.
Denies shortness of breath. She is normally at 3 L of oxygen at home.
Objective Data
-
Labs:
Laboratory Results
02/03/24
05:02
WBC 9.9
Hgb 11.3 L
Hct 35.7 L
Plt Count 282
Sodium 134 L
Potassium 4.0
Chloride 97 L
Carbon Dioxide 33 H
BUN 10
Creatinine 0.6
Glucose 122 H
Calcium 9.3
Vital Signs:
Vital Signs
Temp Pulse Resp BP Pulse Ox
98.3 F 92 15 158/90 99
02/03/24 07:27 02/03/24 08:13 02/03/24 07:37 02/03/24 08:13 02/03/24 07:37
I&O
02/02/24 02/03/24 02/04/24
06:59 06:59 06:59
Intake Total 290 / 290
Output Total 200 / 200
Balance 290 / 290 -200 / -200
Review of Systems
-
Cardiac: Denies Chest Pain
Neuro: Denies Dizzy or Headache
Physical Exam
-
General: No Apparent Distress
HEENT: Moist Mucous Membranes
Respiratory: Clear to Auscultation and Non Labored Respirations; Negative Wheezes or Accessory Resp Muscle Use
Cardiac: Regular Rhythm and S1/S2
GI: Soft and Nontender
Neuro: AO x 3
Psych: Calm
Data Reviewed
-
Labs: Labs Reviewed by me
--- NOTE | 2024-02-03 09:40 | PTCARENOTE ---
Received Pt from previous shift. Pt AAO, pleasant and agreeable to care. Pt took morning pills well with water, Pt requested order dose of Xanax, Pt c/o slight anxiety. Pt stomach tender, admits to discomfort. Pt diet advanced to full liquid this
AM, Pt ordered and ate breakfast within diet parameters, pt tolerated food. Pt on 2L RA satting 99%, lung sounds noted to be slightly diminished at the bases bilaterally. Please see nursing shift assessment for full head to toe. Call jackson in reach.
No acute changes a this time.
--- NOTE | 2024-02-03 11:20 | PTCARENOTE ---
Patient received from the IMU on 2L of O2, increased to 3L due to complaints of dyspnea on exertion. Other vitals stable otherwise.
--- NOTE | 2024-02-03 15:59 | CM ---
Patient with Dx Acute Proctitis, BRBPR. O2 3L. Receiving IV Zosyn.
Met with patient and spoke with daughter Sofiya by phone;
the patient resides with her daughter, son in law, grandson in a bi-level house with no DENIS, and 4+4 steps to bedroom/bath.
The patient has been independent in ADLs and ambulation using her RW.
The patient says she has been getting weaker at home and fell 4x this past week.
She has lived at daughter's house in [place] for the past 3 years. The [facility] address is her house, however only the son Jose Luis is living there.
DME - RW, O2 concentratory through [employer], [employer] portable O2.
VN - prior [facility]
SNF - prior [facility]
PCP - Abhinav Monroe
Pharmacy - [facility]
Discussed short term SNF for rehab; patient initially saying she want to go home because she had a bad experience at [facility]. Daughter would like her to go to SNF for short term rehab as family works out of house and is not available to
assist her during the day. Patient agreeable to SNF. Daughter agrees to referrals to [facility] - SNF referrals placed.
Plan follow up SNF referrals.
[2024-02-03] MEDS: ZYRTEC 5 MG PO (17:43)
[2024-02-03] MEDS: NORCO 7.5/325 1 TABLET PO (18:33)
[2024-02-03] MEDS: CRESTOR 5 MG PO (21:11)
[2024-02-03] MEDS: SENOKOT 17.1999999999999993 MG PO (21:12)
[2024-02-04] MEDS: AMBIEN 5 MG PO (02:09)
[2024-02-04 06:00] VITALS: BMI 20.1
[2024-02-04] MEDS: ZOSYN 50 IV ×3 (06:09→18:16)
[2024-02-04] MEDS: LINZESS 145 MCG PO (06:09)
[2024-02-04 07:05] VITALS: BP 140/99
[2024-02-04] MEDS: ADVAIR HFA 115/21 MCG INHALER 2 PUFF INH ×2 (07:48→19:31)
[2024-02-04] MEDS: NORCO 7.5/325 1 TABLET PO ×2 (07:48→17:52)
[2024-02-04] MEDS: SPIRIVA RESPIMAT 2.5 MCG 2 PUFF INH (07:48)
[2024-02-04] MEDS: DELTASONE 5 MG PO ×2 (07:49→20:07)
[2024-02-04] MEDS: PROCARDIA XL (EXTENDED RELEASE) 30 MG PO (07:49)
[2024-02-04] MEDS: XANAX 2 MG PO ×3 (07:51→20:05)
[2024-02-04] MEDS: WELLBUTRIN XL (24 hour extended release) 300 MG PO (07:51)
[2024-02-04] MEDS: NSS (PRESERVATIVE FREE) 10 ML IV (07:51)
[2024-02-04] MEDS: PROTONIX IV 40 MG IV (07:51)
[2024-02-04] MEDS: COLACE 100 MG PO ×2 (07:51→20:05)
[2024-02-04] MEDS: MIRALAX 17 GRAMS PO (09:47)
--- NOTE | 2024-02-04 10:33 | CM ---
Addendum entered by Ana Maria Cha 02/04/24 10:41:
CM reached patient daughter and update provided. pending physician assessment following procedure.
Original Note:
Patient seen at bedside. Patient referral accepted to [facility], pending bed availability and patient readiness. Patient for procedure today. Patient daughter [phone] patient attempted to call but phone busy. CM will try again. CM will
continue to follow for discharge planning needs.
Plan; SNF pending acceptance/bed availability and medical treatment plan.
--- NOTE | 2024-02-04 10:42 | W.PN.HOSP.TC ---
Today's Communication/Plan
-
waiting for flex sig
Assessment / Plan
Assessment / Plan
A/P: Patient is a 69y F with PMH significant for COPD, chronic mixed respiratory failure and large ventral hernia who presents to ED complaining of abdominal pain and BRBPR.
Acute Proctitis/BRBPR secondary to the above--possible infectious vs ischemia--waiting for procedure--got enema to prepare--cont IV abx and apprec GI--CT scan with additional abnormalities including COMPLIANCE SPECIALIST inflammation - ? secondary to proctitis versus
primary COMPLIANCE SPECIALIST issue--apprec COMPLIANCE SPECIALIST--no visible abnormalities identified on exam--Cystocele/rectocele-pt asymptomatic. No intervention needed if asymptomatic.
Chronic Hypercapnic hypoxemic respiratory Failure--no acute component/Intolerant of BiPAP set up at home [was set up after recent discharge from the hospital]--Compensated respiratory acidosis--Chronic O2 use-2 L/Severe COPD without flare--Continue
usual outpatient inhaled medications. Continue the home O2--Continue to encourage use of BiPAP at home. Use BiPAP as needed in the hospital. Stressed about the importance of BiPAP to prevent respiratory complications.
Large Ventral Hernia- Hernia seen on CT scan with included bowel and portion of the liver- No evidence of obstruction / apparent strangulation / etc- Chronic issue and suspect would be prohibitive repair given size, underlying pulmonary issues, etc-
Follow for any new / worsening symptoms.
Anxiety/Depression- Stable. Patient on multiple meds - including Ambien, Ativan, etc- Would try to decrease / minimize sedating agents - especially given hypercapnia issues Continue Wellbutrin / Trintellix / etc.
Chronic Anemia/GERD / PUD- Stable. Hgb is actually higher than usual baseline despite rectal bleeding- Continue daily PPI.
DVT Prophylaxis: Subcut Heparin
Code Status: Full
Anticipated Discharge: 24 - 48 hours
Subjective/Interval History
-
Date of Service: February 04, 2024
pt waiting for procedure
Objective Data
-
Vital Signs:
max temp for 24 hours
02/03/24
15:00
Temp 98.5 F
Vital Signs
Temp Pulse Resp BP Pulse Ox
97.5 F 106 16 140/99 99
02/04/24 07:05 02/04/24 07:49 02/04/24 07:34 02/04/24 07:49 02/04/24 07:34
I&O
02/03/24 02/04/24 02/05/24
06:59 06:59 06:59
Intake Total 1600 / 1600
Output Total 200 / 200
Balance -200 / -200 1600 / 1600
Review of Systems
-
All other systems: Reviewed and negative
Physical Exam
-
General: Well Developed, Well Nourished and No Apparent Distress
HEENT: Normocephalic, Atraumatic and Oxygen
Respiratory: Clear to Auscultation; Negative Wheezes or Rhonchi
Cardiac: Regular Rhythm and S1/S2; Negative Murmur
GI: Soft, Nontender, Nondistended, Normal Bowel Sounds and Other (hernia right abdomen)
Musculoskeletal: No Clubbing, No Cyanosis and No Edema
Skin: Warm
Neuro: Awake
[2024-02-04] MEDS: MORPHINE SULFATE 2 MG IV ×3 (10:43→21:20)
[2024-02-04 12:28] VITALS: BP 118/73
[2024-02-04 15:05] VITALS: BP 115/79
[2024-02-04] MEDS: ZYRTEC 5 MG PO (17:53)
[2024-02-04] MEDS: NON-FORMULARY ITEM PO ×7 (19:37→19:40)
[2024-02-04] MEDS: NON-FORMULARY ITEM 5 MG PO (20:08)
[2024-02-04] MEDS: SENOKOT 17.1999999999999993 MG PO (21:20)
[2024-02-04] MEDS: CRESTOR 5 MG PO (21:20)
[2024-02-04 23:25] VITALS: BP 139/77
[2024-02-05] MEDS: ZOSYN 50 IV ×5 (00:14→23:50)
[2024-02-05] MEDS: AMBIEN 5 MG PO (00:27)
[2024-02-05] MEDS: MORPHINE SULFATE 2 MG IV ×5 (01:51→22:43)
[2024-02-05] MEDS: XANAX 2 MG PO ×4 (04:14→23:49)
[2024-02-05] MEDS: NORCO 7.5/325 1 TABLET PO ×2 (04:15→14:52)
[2024-02-05 04:46] VITALS: BMI 20.2
[2024-02-05 05:50] VITALS: BMI 20.2
[2024-02-05 05:57] LABS: Hematocrit 34.9 % (37.0-47.0); Mean Corp Hgb Conc. 31.5 g/dL (33.0-37.0); Mean Corpuscular Hgb 29.5 pg (27.0-31.0); Mean Corpuscular Volume 93.6 fL (81.0-99.0); Mean Platelet Volume 9.6 fL (7.4-10.4); Platelet Count 260 10^3/uL (130-400); Red Blood Cell Count 3.73 10^6/uL (4.20-5.40); Red Cell Dist. Width 13.4 % (11.5-14.5); White Blood Cell Count 10.8 10^3/uL (4.8-10.8)
[2024-02-05] MEDS: LINZESS 145 MCG PO (06:20)
[2024-02-05 06:25] LABS: Blood Urea Nitrogen 12 mg/dl (7-17); Calcium 9.7 mg/dl (8.4-10.2); Carbon Dioxide 35 mmol/L (22-30); Chloride 93 mmol/L (98-107); Estimated Creatinine Clearance 70 ml/min; Glucose 102 mg/dl (70-99); Magnesium 1.4 mg/dl (1.6-2.3); Potassium 4.2 mmol/L (3.5-5.1); Sodium 135 mmol/L (135-145); eGFR > 60.00
[2024-02-05 07:05] VITALS: BP 151/91
[2024-02-05] MEDS: ADVAIR HFA 115/21 MCG INHALER 2 PUFF INH ×2 (07:59→20:32)
[2024-02-05] MEDS: SPIRIVA RESPIMAT 2.5 MCG 2 PUFF INH (07:59)
[2024-02-05] MEDS: MAGNESIUM SULFATE 100 IV (08:25)
[2024-02-05] MEDS: PROTONIX IV 40 MG IV (08:28)
[2024-02-05] MEDS: NON-FORMULARY ITEM 20 MG PO (08:29)
[2024-02-05] MEDS: NON-FORMULARY ITEM 5 MG PO ×2 (08:29→20:28)
[2024-02-05] MEDS: DELTASONE 5 MG PO ×2 (08:29→20:26)
[2024-02-05] MEDS: WELLBUTRIN XL (24 hour extended release) 300 MG PO (08:29)
[2024-02-05] MEDS: PROCARDIA XL (EXTENDED RELEASE) 30 MG PO (08:29)
[2024-02-05] MEDS: NSS (PRESERVATIVE FREE) 10 ML IV (08:29)
[2024-02-05] MEDS: COLACE 100 MG PO ×2 (08:29→20:25)
[2024-02-05] MEDS: COMPAZINE 5 MG IV ×2 (08:39→14:53)
--- NOTE | 2024-02-05 09:59 | CM ---
Patient seen at bedside with physician. Patient complaining of stomach pain and following discussion with physician plan is for patient to go to SNF tomorrow pending bed availability. Patient again indicated that she does not want to go to the
previous SNF; [facility] as she did not get along with the physician there. CM updated daughter and admissions at [facility]. CM will continue to follow for discharge planning needs.
Plan; SNF when medically clear and pending bed availability.
--- NOTE | 2024-02-05 10:01 | W.PN.HOSP.TC ---
Today's Communication/Plan
-
cont good bowel regimen
diet started yesterday and pt with some abdominal pain
Assessment / Plan
Assessment / Plan
A/P: Patient is a 69y F with PMH significant for COPD, chronic mixed respiratory failure and large ventral hernia who presents to ED complaining of abdominal pain and BRBPR.
Acute Proctitis/BRBPR secondary to the above--possible infectious vs ischemia--flex sig: entire examined colon was normal---change IV abx to oral to finish course--apprec GI--CT scan with additional abnormalities including LOG DATA TECHNICIAN inflammation - ?
secondary to proctitis versus primary LOG DATA TECHNICIAN issue--apprec LOG DATA TECHNICIAN--no visible abnormalities identified on exam--Cystocele/rectocele--pt asymptomatic. No intervention needed
Chronic Hypercapnic hypoxemic respiratory Failure--no acute component/Intolerant of BiPAP set up at home [was set up after recent discharge from the hospital]--Compensated respiratory acidosis--Chronic O2 use-2 L/Severe COPD without flare--Continue
usual outpatient inhaled medications. Continue the home O2--Continue to encourage use of BiPAP at home. Use BiPAP as needed in the hospital. Stressed about the importance of BiPAP to prevent respiratory complications.
Large Ventral Hernia- Hernia seen on CT scan with included bowel and portion of the liver- No evidence of obstruction / apparent strangulation / etc- Chronic issue and suspect would be prohibitive repair given size, underlying pulmonary issues, etc-
cont good bowel regimen
Anxiety/Depression- Stable. Patient on multiple meds - including Ambien, Ativan, etc- Would try to decrease / minimize sedating agents - especially given hypercapnia issues Continue Wellbutrin / Trintellix / etc.
Chronic Anemia/GERD / PUD- Stable. Hgb is actually higher than usual baseline despite rectal bleeding- Continue daily PPI.
DVT Prophylaxis: Subcut Heparin
Code Status: Full
Anticipated Discharge: Within 24 hours
Subjective/Interval History
-
Date of Service: February 05, 2024
pt still with abdominal pain
Objective Data
-
Labs:
Laboratory Results
02/05/24
04:42
WBC 10.8
Hgb 11.0 L
Hct 34.9 L
Plt Count 260
Sodium 135
Potassium 4.2
Chloride 93 L
Carbon Dioxide 35 H
BUN 12
Creatinine 0.6
Glucose 102 H
Calcium 9.7
Vital Signs:
max temp for 24 hours
02/04/24
23:25
Temp 99.1 F
Vital Signs
Temp Pulse Resp BP Pulse Ox
97.8 F 96 16 139/77 97
02/05/24 07:05 02/05/24 08:04 02/05/24 08:04 02/05/24 08:29 02/05/24 08:04
I&O
02/04/24 02/05/24 02/06/24
06:59 06:59 06:59
Intake Total 1600 / 1600 1480 / 1480
Output Total 2 / 2
Balance 1600 / 1600 1478 / 1478
Review of Systems
-
All other systems: Reviewed and negative
Abdomen/GI: Reports Abdominal Pain
Physical Exam
-
General: Well Developed, Well Nourished and No Apparent Distress
HEENT: Normocephalic and Atraumatic
Respiratory: Clear to Auscultation; Negative Wheezes or Rhonchi
Cardiac: Regular Rhythm and S1/S2; Negative Murmur
GI: Soft, Nondistended, Normal Bowel Sounds, Tender and Other (large hernia)
Musculoskeletal: No Clubbing, No Cyanosis and No Edema
Neuro: Awake
[2024-02-05 15:05] VITALS: BP 122/74
--- NOTE | 2024-02-05 16:45 | PTCARENOTE ---
pt received two prn doses of pain medication this shift and two doses of prn Compazine this shift for this nurse after breakfast and lunch. pt ate 100% of each meal but stated that she was feeling nauseous after each meal. pt walked to bathroom with
assistance early this afternoon and completed personal hygiene.
[2024-02-05] MEDS: ZYRTEC 5 MG PO (17:14)
[2024-02-05] MEDS: XOPENEX 0.63 MG INHALANT SOLUTION 0.630000000000000004 MG INH (20:32)
[2024-02-05] MEDS: CRESTOR 5 MG PO (22:42)
[2024-02-05] MEDS: SENOKOT 17.1999999999999993 MG PO (22:43)
[2024-02-05 23:00] VITALS: BP 129/72
[2024-02-06] MEDS: MORPHINE SULFATE 2 MG IV ×2 (04:07→09:04)
[2024-02-06] MEDS: XOPENEX 0.63 MG INHALANT SOLUTION 0.630000000000000004 MG INH (04:12)
[2024-02-06 05:20] LABS: Hematocrit 38.3 % (37.0-47.0); Hemoglobin 11.8 g/dL (12.0-16.0); Mean Corp Hgb Conc. 30.8 g/dL (33.0-37.0); Mean Corpuscular Hgb 29.5 pg (27.0-31.0); Mean Corpuscular Volume 95.8 fL (81.0-99.0); Mean Platelet Volume 9.1 fL (7.4-10.4); Platelet Count 252 10^3/uL (130-400); Red Cell Dist. Width 13.7 % (11.5-14.5); White Blood Cell Count 12.4 10^3/uL (4.8-10.8)
[2024-02-06 05:54] LABS: Blood Urea Nitrogen 13 mg/dl (7-17); Calcium 9.8 mg/dl (8.4-10.2); Carbon Dioxide 36 mmol/L (22-30); Chloride 96 mmol/L (98-107); Estimated Creatinine Clearance 69 ml/min; Glucose 106 mg/dl (70-99); Magnesium 1.7 mg/dl (1.6-2.3); Potassium 4.6 mmol/L (3.5-5.1); Sodium 134 mmol/L (135-145); eGFR > 60.00
[2024-02-06] MEDS: LINZESS 145 MCG PO (06:23)
[2024-02-06] MEDS: XANAX 2 MG PO ×2 (06:23→12:33)
[2024-02-06] MEDS: ZOSYN 50 IV ×2 (06:24→12:33)
[2024-02-06 07:20] VITALS: BP 158/96
[2024-02-06] MEDS: WELLBUTRIN XL (24 hour extended release) 300 MG PO (08:52)
[2024-02-06] MEDS: COLACE 100 MG PO (08:52)
[2024-02-06] MEDS: DELTASONE 5 MG PO (08:52)
[2024-02-06] MEDS: PROTONIX IV 40 MG IV (08:53)
[2024-02-06] MEDS: NSS (PRESERVATIVE FREE) 10 ML IV (08:53)
[2024-02-06] MEDS: NON-FORMULARY ITEM 5 MG PO (08:53)
[2024-02-06] MEDS: PROCARDIA XL (EXTENDED RELEASE) 30 MG PO (08:55)
[2024-02-06] MEDS: NON-FORMULARY ITEM 20 MG PO (08:56)
[2024-02-06] MEDS: SPIRIVA RESPIMAT 2.5 MCG 2 PUFF INH (09:07)
[2024-02-06] MEDS: ADVAIR HFA 115/21 MCG INHALER 2 PUFF INH (09:07)
[2024-02-06] MEDS: COMPAZINE 5 MG IV (10:32)
--- NOTE | 2024-02-06 11:01 | CM ---
Addendum entered by Ana Maria Cha 02/06/24 11:11:
IMM not seen in chart CM requested another IMM and signed form placed on chart.
Original Note:
Patient seen at bedside with physician. Patient indicated that she completed IMM 02/05/24. CM updated patient daughter and plan for transfer to [facility] today. Please call report to [phone]/fax [phone]. CM will complete transportation forms and
update admissions at [facility]. CM will continue to follow for discharge planning needs.
Plan; transfer to [facility].
[2024-02-06 11:15] VITALS: O2SAT 96
--- NOTE | 2024-02-06 11:35 | W.PN.HOSP.TC ---
Today's Communication/Plan
-
d/c
Assessment / Plan
Assessment / Plan
A/P: Patient is a 69y F with PMH significant for COPD, chronic mixed respiratory failure and large ventral hernia who presents to ED complaining of abdominal pain and BRBPR.
Acute Proctitis/BRBPR secondary to the above--possible infectious vs ischemia--flex sig: entire examined colon was normal---change IV abx to oral to finish course--apprec GI--CT scan with additional abnormalities including HEMODIALYSIS CHARGE NURSE inflammation - ?
secondary to proctitis versus primary HEMODIALYSIS CHARGE NURSE issue--apprec HEMODIALYSIS CHARGE NURSE--no visible abnormalities identified on exam--Cystocele/rectocele--pt asymptomatic. No intervention needed
Chronic Hypercapnic hypoxemic respiratory Failure--no acute component/Intolerant of BiPAP set up at home [was set up after recent discharge from the hospital]--Compensated respiratory acidosis--Chronic O2 use-2 L/Severe COPD without flare--Continue
usual outpatient inhaled medications. Continue the home O2--Continue to encourage use of BiPAP at home. Use BiPAP as needed in the hospital. Stressed about the importance of BiPAP to prevent respiratory complications.
Large Ventral Hernia- Hernia seen on CT scan with included bowel and portion of the liver- No evidence of obstruction / apparent strangulation / etc- Chronic issue and suspect would be prohibitive repair given size, underlying pulmonary issues, etc-
cont good bowel regimen
Anxiety/Depression- Stable. Patient on multiple meds - including Ambien, Ativan, etc- Would try to decrease / minimize sedating agents - especially given hypercapnia issues Continue Wellbutrin / Trintellix / etc.
Chronic Anemia/GERD / PUD- Stable. Hgb is actually higher than usual baseline despite rectal bleeding- Continue daily PPI.
chronic constipation likely due to hernia--enemas/meds as needed
DVT Prophylaxis: Subcut Heparin
Code Status: Full
Anticipated Discharge: Today
Subjective/Interval History
-
Date of Service: February 06, 2024
pt ready to go to rehab
Objective Data
-
Labs:
Laboratory Results
02/06/24
05:02
WBC 12.4 H
Hgb 11.8 L
Hct 38.3
Plt Count 252
Sodium 134 L
Potassium 4.6
Chloride 96 L
Carbon Dioxide 36 H
BUN 13
Creatinine 0.5 L
Glucose 106 H
Calcium 9.8
Vital Signs:
max temp for 24 hours
02/05/24
15:05
Temp 98.6 F
Vital Signs
Temp Pulse Resp BP Pulse Ox
97.6 F 120 18 158/96 96
02/06/24 07:20 02/06/24 09:10 02/06/24 09:10 02/06/24 08:55 02/06/24 09:10
I&O
02/05/24 02/06/24 02/07/24
06:59 06:59 06:59
Intake Total 1480 / 1480 1310 / 1310
Output Total 2 / 2
Balance 1478 / 1478 1310 / 1310
Review of Systems
-
All other systems: Reviewed and negative
Physical Exam
-
General: Well Developed, Well Nourished and No Apparent Distress
HEENT: Normocephalic and Atraumatic
Respiratory: Clear to Auscultation; Negative Wheezes or Rhonchi
Cardiac: Regular Rhythm, S1/S2 and Tachycardic; Negative Murmur
GI: Soft, Nontender, Nondistended and Normal Bowel Sounds
Musculoskeletal: No Clubbing, No Cyanosis and No Edema
Skin: Warm
Neuro: Awake
--- NOTE | 2024-02-07 07:30 | W.DCSUMMARY ---
Discharge Summary
Discharge Data
Date of Admission: 02/01/24
Date of Discharge: 02/06/24
-
Pending Results: No
Hospital Course
Primary care physician : Scott Monroe
Principal Discharge diagnosis : Acute proctitis/bright red blood per rectum, chronic constipation
Chronic Discharge diagnosis : Chronic hypercapnic hypoxemic respiratory failure on home oxygen, large ventral hernia, anxiety/depression, anemia of chronic disease/gastroesophageal reflux disease/peptic ulcer disease
Hospital Course : Patient was a 69-year-old female who presented complaining of rectal discomfort and bleeding. She reported lower abdominal discomfort with blood in the stool but was unclear how long that would been present. She she admitted to
nausea and vomiting as well. She had a large chronic ventral hernia which was not significantly changed. Patient was admitted.
Problem #1: Acute proctitis with bright red blood per rectum. Patient was admitted and started on broad-spectrum antibiotics. She was seen in consultation by GI. CAT scan done in the emergency department showed concern for proctitis along with
CANDLE MAKING SUPERVISOR issues. CANDLE MAKING SUPERVISOR was consulted and there were no visible abnormalities on pelvic exam. Patient was prepped for a flexible sigmoidoscopy. The entire examined colon was normal. There were no signs of any proctitis or inflammation. Antibiotics were
stopped. Diet was advanced.
Problem #2: Chronic constipation likely related to large ventral hernia. Patient had intermittent episodes of nausea along with chronic constipation. She was placed on Linzess and had bowel regimen. She also had intermittent enemas. Patient may
require daily enemas long-term unless she decides to pursue ventral hernia repair.
Problem #3: All other medical issues. These include Chronic hypercapnic hypoxemic respiratory failure on home oxygen, anxiety/depression, anemia of chronic disease/gastroesophageal reflux disease/peptic ulcer disease. These medical issues were
stable during her hospitalization. Medications were continued as able.
Patient was seen in consultation by physical therapy and Occupational Therapy she has been referred to rehab. Patient is stable for rehab at this time. If there are any questions regarding this dictation or her hospital stay, please not hesitate
to call. Our office number is [phone].
Time for discharge 32 minutes.
Important imaging findings :
CT SCAN ABDOMEN/PELVIS IMPRESSION:
1. Moderate circumferential irregular wall thickening and submucosal edema in the rectum which is new from 11/05/2023 and is likely secondary to an ACUTE INFECTIOUS or INFLAMMATORY PROCTITIS. Rectal adenocarcinoma is a less likely alternative
diagnostic possibility.
2. PELVIC ORGAN PROLAPSE with a cystocele, vaginal prolapse, and rectocele. Large amount of soft tissue thickening around the vagina which could be inflammatory or infectious in etiology. Vaginal carcinoma is an alternative diagnostic possibility.
3. Moderate diverticulosis in the sigmoid and descending colon.
4. LARGE MIDLINE SUPRAUMBILICAL ANTERIOR ABDOMINAL WALL HERNIA containing distended fecal filled loops of transverse colon and the lateral segment of the left lobe of the liver.
5. Large amount of fecal material in the ascending and transverse colon consistent with CONSTIPATION.
6. Moderate-sized paraesophageal hiatal hernia.
7. Mild biliary dilatation which appears to be secondary to previous cholecystectomy.
8. Severe calcific atherosclerotic plaque in the abdominal aorta.
9. 4.2 cm cyst, seroma, or lymphocele in the left side of the pelvis which appears unchanged.
10. Severe discogenic degenerative disease in the lower lumbar spine.
11. Mild bronchiolitis in the lower lungs.
Procedure findings :
SIGMOIDOSCOPY Impression: The entire examined colon is normal.
- Stool in the rectum.
- Normal mucosa in the rectum.
- No specimens collected.
Recommendation: - NO further bleeding, likely was hemorrhoidal, no
signs of proctitis now. Will given milk and molasses
enema, continue current medications.
Discharge Plan
-
Patient Disposition: [facility]
Discharge Diagnosis/Procedures: Chronic constipation, acute proctitis with bright red blood per rectum ruled out, chronic hypercapnic hypoxemic respiratory failure, large ventral hernia, anxiety/depression, anemia of chronic disease/gastroesophageal
reflux disease/peptic ulcer disease
Condition: Good
Diet: As tolerated and Regular
Activity: As tolerated
Driving Restrictions: As prior to admission
Bathing Restrictions: None
Referrals:
Scott Monroe CRNP [Family Provider] - in less than 1 week
Additional Discharge Medication Instructions:
Patient may need daily enemas, either tap water or milk and molasses (pending facility preference) if no bowel movements daily
Prescriptions:
New
hydrocodone-acetaminophen 7.5-325 mg Tablet
1 tab PO Q8HPRN PRN (Reason: moderate pain) Qty: 7 0RF
docusate sodium 100 mg Capsule
100 mg PO BID Qty: 0 0RF
Continued
multivitamin with folic acid [Tab-A-Charles] 1 TABLET tablet
1 tab PO DAILY
tiotropium bromide [Spiriva with HandiHaler] 18 mcg Capsule, W/Inhalation Device
1 cap INHALATION R DAILY
Corlanor 5 mg Tablet
5 mg PO BID
Linzess 145 mcg Capsule
145 mcg PO DAILY
Trintellix 20 mg Tablet
20 mg PO DAILY
fluticasone propion-salmeterol [Advair Diskus] 250-50 mcg/dose blister with device
1 inh INHALATION R BID
ondansetron HCl 8 mg tablet
8 mg PO BID
rosuvastatin 5 mg tablet
5 mg PO HS
bupropion HCl 300 mg tablet extended release 24 hr
300 mg PO DAILY
levocetirizine 5 mg tablet
5 mg PO QPM
dexlansoprazole 60 mg capsule,biphase delayed releas
60 mg PO DAILY
nifedipine 30 mg tablet extended release
30 mg PO DAILY Qty: 30 0RF
prednisone 5 mg tablet
5 mg PO BID
sennosides [senna] 8.6 mg Tablet
17.2 mg PO HS
lactulose 10 gram/15 mL (15 mL) Solution
10 g PO DAILYPRN PRN (Reason: CONSTIPATION)
levalbuterol HCl 0.63 mg/3 mL Solution For Nebulization
0.63 mg inhalation R Q6HPRN PRN (Reason: SOB or wheezing) Qty: 72 0RF
acetaminophen [Tylenol] 325 mg Tablet
1,300 mg PO BIDPRN PRN (Reason: mild stomach pains)
zolpidem [Ambien CR] 6.25 mg Tablet,Ext Release Multiphase
6.25 mg PO HSPRN PRN (Reason: sleep)
polyethylene glycol 3350 [Miralax] 17 gram powder in packet
17 g PO DAILYPRN PRN (Reason: constipation)
alprazolam 2 mg tablet
2 mg PO QIDPRN PRN (Reason: anxiety)
Discontinued
hydrocodone-acetaminophen 7.5-325 mg tablet
1 tab PO Q8HPRN PRN (Reason: moderate pain)
docusate sodium [Colace] 100 mg capsule
100 mg PO QPM
Discharge Orders:
Discharge Patient (As Directed); Ordered 02/06/24
Ordered By: Jocy Perez
Discharge Date and Time
Discharge Date/Time: 02/06/24 13:16
Print Language: [place]
== END 2024-02-06 13:16 | DRG 394 ==
LOC: 2 NORTH 23:45
PROVIDERS: Internal Medicine; Physician Assistant; ADMITTING PHYSICIAN Hospitalist; ATTENDING PHYSICIAN Internal Medicine; CONSULT PHYSICIAN Internal Medicine Gastroenterology; CONSULT PHYSICIAN Obstetrics & Gynecology; EMERGENCY PHYSICIAN Emergency Medicine; FAMILY PHYSICIAN Nurse Practitioner Adult Health
PROC: 0DJD8ZZ Inspection of Lower Intestinal Tract, Via Natural or Artificial Opening Endoscopic (ICD-10-PCS; 2024-02-04)
DX: K43.9 Ventral hernia without obstruction or gangrene (principal); J44.0 Chronic obstructive pulmonary disease with (acute) lower respiratory infection; J96.11 Chronic respiratory failure with hypoxia; J96.12 Chronic respiratory failure with hypercapnia; K62.5 Hemorrhage of anus and rectum; K59.09 Other constipation; K64.9 Unspecified hemorrhoids; F32.A Depression, unspecified; F41.9 Anxiety disorder, unspecified; D63.8 Anemia in other chronic diseases classified elsewhere; K21.9 Gastro-esophageal reflux disease without esophagitis; K27.9 Peptic ulcer, site unspecified, unspecified as acute or chronic, without hemorrhage or perforation; N99.3 Prolapse of vaginal vault after hysterectomy; K57.30 Diverticulosis of large intestine without perforation or abscess without bleeding; K44.9 Diaphragmatic hernia without obstruction or gangrene; R05.3 Chronic cough; E11.9 Type 2 diabetes mellitus without complications; G89.29 Other chronic pain; Z85.3 Personal history of malignant neoplasm of breast; Z99.81 Dependence on supplemental oxygen; Z87.891 Personal history of nicotine dependence; Z90.49 Acquired absence of other specified parts of digestive tract; Z79.51 Long term (current) use of inhaled steroids; Z79.52 Long term (current) use of systemic steroids; Z92.21 Personal history of antineoplastic chemotherapy; Z92.3 Personal history of irradiation; Z88.6 Allergy status to analgesic agent; Z91.041 Radiographic dye allergy status; Z91.013 Allergy to seafood
CPT/HCPCS: 74177; 80048; 80053; 82805; 83735; 84439; 84443; 85014; 85018; 85025; 85027; 85610; 85730; 86850; 86900; 86901; 87070; 93005; 94640; 96365; 96375; 97116; 97163; 97166; 97530; 99285; Q9967

== ENCOUNTER 2024-04-07 11:19 | Inpatient (IN) | payer MEDICARE, SELFPAY ==
[2024-04-05 19:27] VITALS: BP 156/105
--- NOTE | 2024-04-05 20:33 | ED.GENMED ---
History of Present Illness
General
Chief Complaint: Abdominal Pain
Source: patient
Time Seen by Provider: 04/05/24 20:13
Travel History
Have you had any contact with someone who has COVID-19?: No
Do you have any symptoms of coronavirus? Fever > 100 degrees, chills, cough, shortness of breath, sore throat, loss of taste or smell, muscle aches, or headache?: No
History of Present Illness
History of Present Illness:
69-year-old female presenting emergency department for evaluation of a large abdominal wall hernia that has been ongoing for many years, today much more pain and swelling prompting her to come to the emergency department. She denies any fevers,
vomiting, change in bowel habits and notes she is still flatulent. She did not take anything for pain yet today. She states that she has been seen at this hospital for this morning in the past but notes that surgery will not operate on her due to
her end-stage COPD and other chronic medical conditions.
Past History
Past History
ED Past Medical History: Asthma, Cancer (Remote history of breast cancer), COPD, NIDDM and Other (Chronic abdominal wall hernia, chronic abdominal pain, upper GI bleed January 2023, Chronic cough, Ulcers)
ED Past Surgical History: Cholecystectomy, Gynecological (Hysterectomy) and Other (left Lumpectomy)
Patient has exhibited threatening behavior?: No
PSI?: No
Social History
Tobacco: Former smoker
Alcohol: Occasional
Drug: None
Personal:
Living: with family
Employment: Retired
Family History
Family History: Other and Unable to obtain
Review of Systems
Review of Systems
All Other Systems: ROS reviewed and negative except as documented in HPI and ROS
Phy Exam
Physical Exam
Physical Exam:
GENERAL: Alert , appears older than stated age, uncomfortable
EYE: clear conjunctiva b/l
HEAD: NCAT
ENT: o/p clr, mmm.
CARDIAC: Regular rate and rhythm .
LUNGS: Clear breath sounds bilaterally, no acute respiratory distress, no wheezes/rales/rhonchi
ABDOMEN: Soft, very large from umbilicus hernia with significant tenderness but no overlying erythema. Positive bowel sounds, no r/g, no cvat,
NEUROLOGICAL: Alert and oriented
SKIN: Warm and dry, skin intact.
MUSCULOSKELETAL: No edema, well perfused.
PSYCH: Normal and appropriate interaction.
Scores
Heart Failure Risk
Heart Failure Risk Score: Not Applicable
Heart Score for Chest Pain Patients
STEMI patient?: Not applicable
Withdrawal Assessment of Alcohol
Withdrawal Assessment Completed?: Not applicable
Course
Orders/Labs/Results
Orders:
Orders
04/05/24 20:17
Morphine Sulfate 4 mg IV NOW STA
04/05/24 20:23
CT Abd/pelvis W Iv Cont Urgent
Comment:
Reason For Exam: large hernia, worsening pain
Diphenhydramine [Benadryl] 50 mg IV NOW STA
Hydrocortisone Sod Succinate [Solu-Cortef] 200 mg IV NOW STA
04/05/24 20:43
Complete Blood Count/With Diff Urgent
Comprehensive Metabolic Panel Urgent
Lactic Acid Q4H
Comment: CANCEL 2nd LACTIC ACID IF 1st LACTIC ACID IS LESS THAN 2
Lipase Urgent
Abnormal Lab Results
04/05/24
20:43
WBC 14.0 H 10^3/uL
(4.8-10.8)
RBC 3.96 L 10^6/uL
(4.20-5.40)
Hgb 11.6 L g/dL
(12.0-16.0)
Hct 35.6 L %
(37.0-47.0)
MCHC 32.6 L g/dL
(33.0-37.0)
Plt Count 405 H 10^3/uL
(130-400)
Abs Immat Gran (auto) 0.1 H 10^3/uL
(0-0.05)
Absolute Neuts (auto) 8.6 H 10^3/uL
(1.4-6.5)
Absolute Lymphs (auto) 4.0 H 10^3/uL
(1.2-3.4)
Absolute Monos (auto) 1.1 H 10^3/uL
(0.1-0.6)
Immature Gran % 0.6 H %
(0-0.5)
Chloride 95 L mmol/L
(98-107)
Carbon Dioxide 36 H mmol/L
(22-30)
Glucose 157 H mg/dl
(70-99)
04/05/24 20:43
04/05/24 20:43
Vital Signs
Initial and Last Documented VS:
Initial Vital Signs
Temp Pulse Resp BP Pulse Ox
98.1 F 119 18 156/105 94
04/05/24 19:27 04/05/24 19:27 04/05/24 19:27 04/05/24 19:27 04/05/24 19:27
Last Documented Vital Signs
Temp Pulse Resp BP Pulse Ox
98.1 F 116 46 125/90 100
04/05/24 19:27 04/05/24 21:30 04/05/24 21:30 04/05/24 21:25 04/05/24 21:30
MDM/Problems Addressed
Differential Diagnosis Includes:
Incarcerated or strangulated hernia, acute on chronic exacerbation of pain secondary to hernia, constipation
MDM/Problems Addressed:
69-year-old female presenting emergency department for evaluation of increased abdominal pain to her known chronic and large abdominal wall hernia. Patient has good bowel sounds but is significantly tender over the abdominal wall hernia. Will
obtain CT scan for further evaluation. Patient has noted IV dye however she has tolerated the CT scan with pretreatment with steroid and Benadryl in the past. Morphine ordered for pain control. Lab work pending.
*Radiology
Radiology exam reviewed: radiology read reviewed
*Pulse Oximetry
Patient hypoxic: no
*Critical Care Note
Total Time (30-74mins, 75-104mins- exclusive of procedures): Not Applicable
Data Reviewed
Review of Other/Old Records Reveals: Labs, Records and Radiology Studies
Source: patient
Patient Management
Discussion with other providers: Hospitalist
Escalation/DeEscalation of care consider admission/obs:
Patient CT of the abdomen pelvis is mostly unchanged from previous showing no real change to the abdominal wall hernia. No evidence for obstruction or strangulation/incarceration. Patient notes her pain is improved with the morphine although still
mildly present. Given the acutely worsening nature of the pain will admit for further evaluation and surgical consultation in the morning. Hospitalist team is aware and accepts for continued evaluation and treatment.
ED Attending Note
-
Portions of this chart may have been created with voice recognition software.� Occasional wrong word or��sound alike� substitutions may have occurred due to the inherent limitations of voice recognition software.
Discharge Plan
Departure
Patient Disposition: Admit
Date of Disposition: 04/05/24
Time of Disposition: 22:46
Presentation/result/management discussed w/ accepting MD/DO: Hospitalist
Discharge Problem:
Abdominal hernia
Prescriptions:
No Action
multivitamin with folic acid [Tab-A-Charles] 1 TABLET tablet
1 tab PO DAILY
tiotropium bromide [Spiriva with HandiHaler] 18 mcg Capsule, W/Inhalation Device
1 cap INHALATION R DAILY
Corlanor 5 mg Tablet
5 mg PO BID
Linzess 145 mcg Capsule
145 mcg PO DAILY
Trintellix 20 mg Tablet
20 mg PO DAILY
fluticasone propion-salmeterol [Advair Diskus] 250-50 mcg/dose blister with device
1 inh INHALATION R BID
ondansetron HCl 8 mg tablet
8 mg PO BID
rosuvastatin 5 mg tablet
5 mg PO HS
bupropion HCl 300 mg tablet extended release 24 hr
300 mg PO DAILY
levocetirizine 5 mg tablet
5 mg PO QPM
dexlansoprazole 60 mg capsule,biphase delayed releas
60 mg PO DAILY
nifedipine 30 mg tablet extended release
30 mg PO DAILY Qty: 30 0RF
prednisone 5 mg tablet
5 mg PO BID
sennosides [senna] 8.6 mg Tablet
17.2 mg PO HS
lactulose 10 gram/15 mL (15 mL) Solution
10 g PO DAILYPRN PRN (Reason: CONSTIPATION)
levalbuterol HCl 0.63 mg/3 mL Solution For Nebulization
0.63 mg inhalation R Q6HPRN PRN (Reason: SOB or wheezing) Qty: 72 0RF
acetaminophen [Tylenol] 325 mg Tablet
1,300 mg PO BIDPRN PRN (Reason: mild stomach pains)
zolpidem [Ambien CR] 6.25 mg Tablet,Ext Release Multiphase
6.25 mg PO HSPRN PRN (Reason: sleep)
polyethylene glycol 3350 [Miralax] 17 gram powder in packet
17 g PO DAILYPRN PRN (Reason: constipation)
alprazolam 2 mg tablet
2 mg PO QIDPRN PRN (Reason: anxiety)
hydrocodone-acetaminophen 7.5-325 mg Tablet
1 tab PO Q8HPRN PRN (Reason: moderate pain) Qty: 7 0RF
docusate sodium 100 mg Capsule
100 mg PO BID Qty: 0 0RF
Referrals:
UNKNOWN - PT DOES,NOT KNOW [Family Provider] -
Interventions
Interventions:
*Risk Screen - Suicide Last Done: 04/05/24 19:27
*General Assessment Last Done: 04/05/24 19:27
*Neglect/Abuse Screening Last Done: 04/05/24 19:27
ED- Fall Risk Assessment Last Done: 04/05/24 20:57
GR-Lzvwip-Ghpzklfdad Assessment Last Done: 04/05/24 20:57
Discharge Date and Time
Print Language: LATVIAN
[2024-04-05] MEDS: SOLU-CORTEF 200 MG IV (20:48)
[2024-04-05] MEDS: BENADRYL 50 MG IV (20:48)
[2024-04-05] MEDS: MORPHINE SULFATE 4 MG IV (20:48)
[2024-04-05 20:51] LABS: % Basophils 0.4 % (0-2); % Eosinophils 1.1 % (0-6); % Immature Granulocytes 0.6 % (0-0.5); % Lymphocytes 28.2 % (20.5-51.1); % Monocytes 8.1 % (1.7-9.3); % Neutrophils 61.6 % (42.2-75.2); Absolute Basophils 0.1 10^3/uL (0-0.2); Absolute Eosinophils 0.2 10^3/uL (0-0.7); Absolute Immature Granulocytes 0.1 10^3/uL (0-0.05); Absolute Monocytes 1.1 10^3/uL (0.1-0.6); Absolute Neutrophils 8.6 10^3/uL (1.4-6.5); Hematocrit 35.6 % (37.0-47.0); Hemoglobin 11.6 g/dL (12.0-16.0); Mean Corp Hgb Conc. 32.6 g/dL (33.0-37.0); Mean Corpuscular Hgb 29.3 pg (27.0-31.0); Mean Corpuscular Volume 89.9 fL (81.0-99.0); Mean Platelet Volume 8.5 fL (7.4-10.4); Nucleated Red Blood Cells % 0 %; Platelet Count 405 10^3/uL (130-400); Red Blood Cell Count 3.96 10^6/uL (4.20-5.40); Red Cell Dist. Width 13.3 % (11.5-14.5)
[2024-04-05 20:52] VITALS: BMI 19.3
[2024-04-05 21:12] LABS: Lactic Acid 1.6 mmol/L (0.7-2.0)
[2024-04-05 21:15] LABS: ALT (SGPT) 18 U/L (0-35); AST (SGOT) 26 U/L (14-36); Albumin 4.2 g/dl (3.5-5.0); Alkaline Phosphatase 98 U/L (38-126); Blood Urea Nitrogen 14 mg/dl (7-17); Carbon Dioxide 36 mmol/L (22-30); Chloride 95 mmol/L (98-107); Estimated Creatinine Clearance 71 ml/min; Glucose 157 mg/dl (70-99); Lipase 109 U/L (23-300); Sodium 137 mmol/L (135-145); Total Bilirubin 0.4 mg/dl (0.2-1.3); eGFR > 60.00
[2024-04-05 21:25] VITALS: BP 125/90
--- NOTE | 2024-04-05 23:07 | HPS.HSE ---
Family Physician
-
Family Physician: NOT KNOW UNKNOWN - PT DOES
Chief Complaint
-
Abdominal pain and distention
History of Present Illness
This is a 69-year-old female with who has a extensive past medical history significant for COPD on 3 L of home oxygen, hypothyroid, hypertension, hyperlipidemia, recently diagnosed ventral hernia negative hernia presenting to the emergency
department she usually does have intermittent swelling of her ventral hernia which is sometimes occasionally associated with pain. She now reports that the pain is also has been the worst it has been over the last 24 hours. The size of the hernia
is not much increased. Is having bowel movements. Last p.o. was this morning. In addition to the abdominal pain and nausea she is also having acid reflux symptoms that is worse from baseline. Patient denies having any fevers or chills. She
denies feeling dizzy or lightheaded. She denies having any melena, hematochezia or hematemesis.
On arrival in the ED patient was tachycardic but otherwise hemodynamically stable and afebrile. She is in moderate distress due to pain. Looked as he was unremarkable. Chemistries are unchanged from prior with normal BUN/creatinine baseline
elevated bicarb. Glucose was 157. Normal lipase and LFTs.
CT scan of the abdomen shows a large ventral hernia with pass of the transverse colon contained without any obstruction or strangulation or incarceration. She also has gastric dilation with a large hiatal hernia. No obstruction noted. These
findings prior. Surgery consulted.
Medical History
Past Medical History
Past Medical History: Reports COPD, GERD, HTN and Hypercholesterolemia
Additional Past Medical History:
Ventral Hernia
Past Surgical History: Reports None
Social History
Tobacco: Former Smoker
Alcohol: None
Drug: None
Living: Alone
Employment: Disabled
Family History
Family History: Not pertinent
Allergies / Home Medications
Allergies reflects when Allergies were last updated in [email or web address].
Home Medications with original date entered in [email or web address]
Allergy/Medication List:
Allergies
Allergy/AdvReac Type Severity Reaction Status Date / Time
Iodinated Contrast Media Allergy Tongue Verified 02/01/24 18:31
Swelling
Iodine and Iodide Containing Allergy Tongue Verified 02/01/24 18:31
Produc Swelling
shellfish derived Allergy Tongue Verified 02/01/24 18:31
Swelling
aspirin AdvReac Nausea / Verified 02/01/24 18:31
Vomiting
Home Medications
multivitamin with folic acid 400 mcg tablet (Tab-A-Charles) 1 tab PO DAILY Supplement 02/28/22
bupropion HCl 300 mg 24 hr tablet, extended release 300 mg PO DAILY Mental Health/Anxiety 02/04/23
dexlansoprazole 60 mg capsule,biphase delayed release 60 mg PO DAILY Gastrointestinal issue 02/04/23
fluticasone 250 mcg-salmeterol 50 mcg/dose blistr powdr for inhalation (Advair Diskus) 1 inh inhalation R BID Lung/breathing issues 02/04/23
ivabradine 5 mg tablet (Corlanor) 5 mg PO BID Heart disease/condition 02/04/23
levocetirizine 5 mg tablet 5 mg PO QPM Allergies 02/04/23
linaclotide 145 mcg capsule (Linzess) 145 mcg PO DAILY Constipation 02/04/23
ondansetron HCl 8 mg tablet 8 mg PO BID nausea 02/04/23
rosuvastatin 5 mg tablet 5 mg PO HS High cholesterol 02/04/23
tiotropium bromide 18 mcg capsule with inhalation device (Spiriva with HandiHaler) 1 cap inhalation R DAILY Lung/breathing issues 02/04/23
vortioxetine 20 mg tablet (Trintellix) 20 mg PO DAILY Mental Health/Anxiety 02/04/23
nifedipine 30 mg tablet,extended release 30 mg PO DAILY #30 tabs 02/12/23
prednisone 5 mg tablet 5 mg PO BID Anti-Inflammatory 05/30/23
lactulose 10 gram/15 mL (15 mL) oral solution 10 g PO DAILYPRN PRN CONSTIPATION 05/31/23
sennosides 8.6 mg tablet (senna) 17.2 mg PO HS Constipation 05/31/23
levalbuterol HCl 0.63 mg/3 mL solution for nebulization 0.63 mg (3 mL) inhalation R Q6HPRN PRN SOB or wheezing #72 mL 06/05/23
acetaminophen 325 mg tablet (Tylenol) 1,300 mg PO BIDPRN PRN mild stomach pains 02/01/24
alprazolam 2 mg tablet 2 mg PO QIDPRN PRN anxiety 02/01/24
polyethylene glycol 3350 17 gram oral powder packet (Miralax) 17 g PO DAILYPRN PRN constipation 02/01/24
zolpidem 6.25 mg tablet,extended release,multiphase (Ambien CR) 6.25 mg PO HSPRN PRN sleep 02/01/24
docusate sodium 100 mg capsule 100 mg PO BID Constipation #0 caps 02/06/24
hydrocodone 7.5 mg-acetaminophen 325 mg tablet 1 tab PO Q8HPRN PRN moderate pain #7 tabs 02/06/24
Review of Systems
-
History Source: Patient
Constitutional: Reports No Symptoms
EENT: Reports No Symptoms
Respiratory: Reports No Symptoms
Cardiac: Reports No Symptoms
Abdomen/GI: Reports Abdominal Pain and Nausea
: Reports No Symptoms
Musculoskeletal: Reports No Symptoms
Skin: Reports No Symptoms
Neurological: Reports No Symptoms
Endocrine: Reports No Symptoms
Hematologic/Lymphatic: Reports No Symptoms
Psych: Reports No Symptoms
Physical Exam
Vital Signs
Vital Signs
Temp Pulse Resp BP Pulse Ox
98.1 F 111 28 125/90 99
04/05/24 19:27 04/05/24 22:45 04/05/24 22:45 04/05/24 21:25 04/05/24 22:45
Physical Exam
General: Appears in Distress and Appears Chronically Ill
HEENT: NormoCephalic, Anicteric, Moist mucous membranes and PERRLA
Respiratory: Clear
Cardiac: S1/S2 and Regular Rhythm
Breast: Deferred by me
GI: Tender, Distended and Other (Large ventral hernia just above the umbilicus and about 12cm in max length. Normal bowel sounds present. )
Rectal: Deferred by Provider
Genito-urinary: Deferred by me
Musculoskeletal: No Clubbing, No Cyanosis and No Edema
Skin: Warm
Neuro: AO x 3
Hematologic/Lymphatic: No Lymphadenopathy
Psych: Calm
Laboratory Results
-
04/05/24 20:43
04/05/24 20:43
Laboratory Results
Lactic Acid 1.6 mmol/L (0.7-2.0) 04/05/24 20:43
Total Bilirubin 0.4 mg/dl (0.2-1.3) 04/05/24 20:43
AST 26 U/L (14-36) 04/05/24 20:43
ALT 18 U/L (0-35) 04/05/24 20:43
Alkaline Phosphatase 98 U/L (38-126) 04/05/24 20:43
Lipase 109 U/L (23-300) 04/05/24 20:43
Data Reviewed
-
CT Scan: Report Reviewed by me
Lab Data: Labs Reviewed by me
Old Records: Reviewed
Impression/Plan
-
IMPRESSION:
PLAN:
1. Ventral Hernia - Patient complains of worsening abdominal pain with ventral hernia. CT scan is unchanged showing the large ventral hernia and hiatal hernia. She has worse reflux symptoms with some nausea. No vomiting. Has been having as and
bms. Intolerant of PO.
- admit to med/surg
- npo except meds, sips and ice chips
- maintenance fluids with d5 1/2 NS at 60 ml/hr
- prn famotidine and maalox
- antiemetics and pain control.
- surgery consulted.
2. COPD - Patient stable on home 3 L. No productive cough or wheezing.
- continue home spiriva , advair and prn albuterol
- supplemental oxygen
3. HTN
- continue nifedipine
DVT PPX w/ lovenox sq
Full Code
[2024-04-05] MEDS: MORPHINE SULFATE 2 MG IV (23:37)
[2024-04-05 23:38] VITALS: BP 153/99
[2024-04-06] VITALS: BP 131/90
[2024-04-06 01:52] VITALS: BMI 18.6
[2024-04-06 01:55] VITALS: BP 167/97
[2024-04-06] MEDS: D5/0.45%NACL 1000 IV ×2 (02:34→17:49)
--- NOTE | 2024-04-06 02:48 | PTCARENOTE ---
04/06/2024 - PT admitted to room 2138 from the ED @ 01;45. PT transferred to bed with assist x 1. PT oriented to room, call jackson, plan of care discussed. PT is AAOX3 and able to participate in admission questions as documented. PT is NPO and sign
placed on outstide of room. Assessment as documented.
[2024-04-06] MEDS: MORPHINE SULFATE 2 MG IV ×5 (03:36→23:38)
[2024-04-06 07:30] VITALS: BP 108/73
[2024-04-06] MEDS: WELLBUTRIN XL (24 hour extended release) 300 MG PO (08:30)
[2024-04-06] MEDS: PROTONIX 40 MG PO (08:30)
[2024-04-06] MEDS: PEPCID 20 MG PO (08:30)
[2024-04-06] MEDS: PROCARDIA XL (EXTENDED RELEASE) 30 MG PO (08:30)
[2024-04-06] MEDS: LINZESS 145 MCG PO (08:30)
[2024-04-06] MEDS: DELTASONE 5 MG PO ×2 (08:30→20:39)
--- NOTE | 2024-04-06 08:56 | W.PN.HOSP.TC ---
Today's Communication/Plan
-
see bold
Assessment / Plan
Assessment / Plan
Gen: NAD, AAOx3.
Eyes: EOMI, PERRLA, no scleral icterus.
Neck: supple.
CV: tachy, reg rhythm, +S1/S2, no m/r/g.
Resp: CTAB, no rales, wheezes, or rhonchi.
Abd: +BS, soft, ND. Large ventral hernia that is soft, tender to palpation, and with bowel sounds
Skin: No rashes.
Neuro: CN 2-12 intact, non-focal.
Psych: Normal mood and affect.
CT A/P:
1. Moderate-sized paraesophageal hiatal hernia. Severe distention of the stomach and proximal duodenum with fluid and partially digested food material. Mild to moderate circumferential wall thickening throughout the proximal jejunal small bowel
loops. An acute gastroenteritis is a diagnostic possibility.
2. LARGE MIDLINE SUPRAUMBILICAL ANTERIOR ABDOMINAL WALL HERNIA containing a large loop of transverse colon and a small portion of the left lobe of the liver.
3. Mild intrahepatic and extrahepatic biliary dilatation which is likely secondary to previous cholecystectomy.
4. Severe diverticulosis in the descending and sigmoid colon.
5. Moderate-sized cystocele.
6. 4.0 cm benign-appearing cyst in the left side of the pelvis which is unchanged.
7. Small bilateral indirect inguinal hernias.
8. Severe discogenic degenerative disease and facet joint arthrosis in the lumbar spine.
Abdominal pain due to chronic ventral hernia:
-Patient complains of worsening abdominal pain with ventral hernia. CT scan is unchanged showing the large ventral hernia and hiatal hernia. She has worse reflux symptoms with some nausea. No vomiting. Has been having BMs. Intolerant of PO.
-NPO except meds, sips and ice chips
-cont D5 1/2 NS at 60 ml/hr
-PRN Pepcid/Maalox
-antiemetics and pain control
-c/s surgery. Ultimately, the patient's problem requires surgical repair to rectify.
Chronic hypoxemic respiratory failure due to COPD:
-Not in acute exacerbation
-Continue NC 3L/min
-cont Spiriva/prednisone
Essential HTN:
-cont nifedipine
FULL/lovenox
Anticipated Discharge: 24 - 48 hours
Subjective/Interval History
-
Date of Service: April 06, 2024
Objective Data
-
Labs:
Laboratory Results
04/05/24 04/06/24
20:43 08:53
WBC Pending
Hgb Pending
Hct Pending
Plt Count Pending
Sodium 137 Pending
Potassium 4.0 Pending
Chloride 95 L Pending
Carbon Dioxide 36 H Pending
BUN 14 Pending
Creatinine 0.6 Pending
Glucose 157 H Pending
Calcium 10.0 Pending
Total Bilirubin 0.4
AST 26
ALT 18
Alkaline Phosphatase 98
Vital Signs:
Vital Signs
Temp Pulse Resp BP Pulse Ox
97.5 F 117 20 108/73 99
04/06/24 07:30 04/06/24 08:30 04/06/24 07:49 04/06/24 08:30 04/06/24 07:49
I&O
04/05/24 04/06/24 04/07/24
06:59 06:59 06:59
Intake Total 160 / 160
Balance 160 / 160
[2024-04-06 09:48] LABS: Hematocrit 32.8 % (37.0-47.0); Hemoglobin 10.4 g/dL (12.0-16.0); Mean Corp Hgb Conc. 31.7 g/dL (33.0-37.0); Mean Corpuscular Hgb 29.1 pg (27.0-31.0); Mean Corpuscular Volume 91.6 fL (81.0-99.0); Platelet Count 372 10^3/uL (130-400); Red Blood Cell Count 3.58 10^6/uL (4.20-5.40); Red Cell Dist. Width 13.6 % (11.5-14.5); White Blood Cell Count 12.9 10^3/uL (4.8-10.8)
[2024-04-06 10:20] LABS: Blood Urea Nitrogen 21 mg/dl (7-17); Calcium 9.4 mg/dl (8.4-10.2); Carbon Dioxide 33 mmol/L (22-30); Chloride 98 mmol/L (98-107); Estimated Creatinine Clearance 69 ml/min; Glucose 102 mg/dl (70-99); Potassium 4.5 mmol/L (3.5-5.1); Sodium 138 mmol/L (135-145); eGFR > 60.00
[2024-04-06] MEDS: SPIRIVA RESPIMAT 2.5 MCG 1 PUFF INH (10:54)
--- NOTE | 2024-04-06 12:09 | CON.GS ---
Consultation
-
Date/Time Consultation Requested: 04/06/24 0223
Requesting Provider: Jacklyn
Reason for Consultation: abdominal pain, large ventral hernia w/o incarceration
Medical History
-
Chief Complaint: abdominal pain
History of Present Illness:
Ms. Pan is a 69 yo female with a h/o COPD on home oxygen, breast ca and known large ventral and hiatal hernias. She has been seen by our service in the past with hernia followed non-operatively as her carbide operator at [facility] had advised patient
that she is not a surgical candidate. At baseline the hernia is chronically protuberant and does cause her some pain, she has worn and abdominal binder intermittently in the past. She presents this admission with worsening abdominal pain at the
hernia site as well as nausea. She has been passing stools at home, but no BM's or flatus since presentation.
Past Medical History
Past Medical History: Cancer (breast) and Other (chronic hypercapnic and hypoxemic respiratory failure on 3-5 l nasal cannula at baseline, anxiety/depression)
Past Surgical History: Other (lumpectomy)
Social History
Tobacco: Former Smoker
Alcohol: None
Family History
Family History: Reviewed & Not Pertinent
Allergies / Home Medications
Allergy/AdvReac Type Severity Reaction Status Date / Time
Iodinated Contrast Media Allergy Tongue Verified 02/01/24 18:31
Swelling
Iodine and Iodide Containing Allergy Tongue Verified 02/01/24 18:31
Produc Swelling
shellfish derived Allergy Tongue Verified 02/01/24 18:31
Swelling
aspirin AdvReac Nausea / Verified 02/01/24 18:31
Vomiting
�Medication �Instructions �Recorded �Confirmed �Type
multivitamin with folic acid 400 1 tab PO DAILY Supplement 02/28/22 02/01/24 History
mcg tablet (Tab-A-Charles)
bupropion HCl 300 mg 24 hr tablet, 300 mg PO DAILY Mental 02/04/23 02/01/24 History
extended release Health/Anxiety
dexlansoprazole 60 mg 60 mg PO DAILY Gastrointestinal 02/04/23 02/01/24 History
capsule,biphase delayed release issue
fluticasone 250 mcg-salmeterol 50 1 inh inhalation R BID 02/04/23 02/01/24 History
mcg/dose blistr powdr for Lung/breathing issues
inhalation (Advair Diskus)
ivabradine 5 mg tablet (Corlanor) 5 mg PO BID Heart disease/condition 02/04/23 02/01/24 History
levocetirizine 5 mg tablet 5 mg PO QPM Allergies 02/04/23 02/01/24 History
linaclotide 145 mcg capsule 145 mcg PO DAILY Constipation 02/04/23 02/01/24 History
(Linzess)
ondansetron HCl 8 mg tablet 8 mg PO BID nausea 02/04/23 02/01/24 History
rosuvastatin 5 mg tablet 5 mg PO HS High cholesterol 02/04/23 02/01/24 History
tiotropium bromide 18 mcg capsule 1 cap inhalation R DAILY 02/04/23 02/01/24 History
with inhalation device (Spiriva Lung/breathing issues
with HandiHaler)
vortioxetine 20 mg tablet 20 mg PO DAILY Mental 02/04/23 02/01/24 History
(Trintellix) Health/Anxiety
nifedipine 30 mg tablet,extended 30 mg PO DAILY #30 tabs 02/12/23 02/01/24 Rx
release
prednisone 5 mg tablet 5 mg PO BID Anti-Inflammatory 05/30/23 02/01/24 History
lactulose 10 gram/15 mL (15 mL) 10 g PO DAILYPRN PRN CONSTIPATION 05/31/23 02/01/24 History
oral solution
sennosides 8.6 mg tablet (senna) 17.2 mg PO HS Constipation 05/31/23 02/01/24 History
levalbuterol HCl 0.63 mg/3 mL 0.63 mg (3 mL) inhalation R Q6HPRN 06/05/23 02/01/24 Rx
solution for nebulization PRN SOB or wheezing #72 mL
acetaminophen 325 mg tablet 1,300 mg PO BIDPRN PRN mild 02/01/24 02/01/24 History
(Tylenol) stomach pains
alprazolam 2 mg tablet 2 mg PO QIDPRN PRN anxiety 02/01/24 02/01/24 History
polyethylene glycol 3350 17 gram 17 g PO DAILYPRN PRN constipation 02/01/24 02/01/24 History
oral powder packet (Miralax)
zolpidem 6.25 mg tablet,extended 6.25 mg PO HSPRN PRN sleep 02/01/24 02/01/24 History
release,multiphase (Ambien CR)
docusate sodium 100 mg capsule 100 mg PO BID Constipation #0 caps 02/06/24 Rx
hydrocodone 7.5 mg-acetaminophen 1 tab PO Q8HPRN PRN moderate pain 02/06/24 Rx
325 mg tablet #7 tabs
Review of Systems
-
History Source: Patient
All other systems: Negative unless noted
A 10 point review of systems was completed, and was negative except as per HPI.
Physical Exam
Vital Signs
Temp Pulse Resp BP Pulse Ox
97.5 F 76 18 108/73 96
04/06/24 07:30 04/06/24 10:58 04/06/24 10:58 04/06/24 08:30 04/06/24 10:58
04/05/24 04/06/24 04/07/24
06:59 06:59 06:59
Actual Weight 49.13 kg
Body Mass Index (BMI) 18.6
Lab Results
04/06/24 08:53
04/06/24 08:53
WBC 12.9 10^3/uL (4.8-10.8) H 04/06/24 08:53
Hgb 10.4 g/dL (12.0-16.0) L 04/06/24 08:53
Hct 32.8 % (37.0-47.0) L 04/06/24 08:53
Plt Count 372 10^3/uL (130-400) 04/06/24 08:53
Abs Immat Gran (auto) 0.1 10^3/uL (0-0.05) H 04/05/24 20:43
Neutrophils % 61.6 % (42.2-75.2) 04/05/24 20:43
Physical Exam
General: Well Developed and Well Nourished
HEENT: Moist Mucous Membranes
Respiratory: Non Labored Respirations
GI: Soft, Tender (to hernia site), Distended (mildly) and Other (ventral hernia, able to be reduced/soft)
Skin: Warm
Neuro: Awake, Alert and AO x 3
Psych: Calm
Data Reviewed
-
CT Scan: Image Personally Visualized and interpreted, Report Reviewed by me, Discussed with Physician, Discussed with Nurse and Discussed with Patient
Labs: Labs Reviewed by me, Discussed with Physician, Discussed with Nurse and Discussed with Patient
Old Records: Reviewed
Assessment / Plan
-
69 yo female with chronic COPD on oxygen and ventral/hiatal hernias presenting with abdominal pain and nausea. CT imaging in the ED with large ventral hernia again noted, containing large intestine/liver without evidence of bowel
ischemia/strangulation. Severe distention of the stomach and proximal duodenum with fluid and partially digested food material. Mild to moderate circumferential wall thickening throughout the proximal jejunal small bowel loops. Ventral hernia tender
but was able to be reduced at bedside/soft. Suspect gastroenteritis as the underlying etiology of pain/nausea, discussed with radiologist and low suspicion for obstruction. Leukocytosis present but improved overnight. Mild tachycardia/tachypnea.
Afebrile.
Poor operative candidate given underlying respiratory issues, pulmonology has advised she is not a surgical candidate in the past.
--Given gastric distention, placed NGT at bedside with thick light brown drainage noted
--Keep NPO with NGT to suction
--Follow expectantly with medical/supportive management at this time
--- NOTE | 2024-04-06 13:06 | CM ---
Initial assessment completed with patient who lives with her daughter in a split level home with B/B on upper level and full bath on lower level, 3 steps to enter, patient has a RW, quad cane and SC, uses O2 continuously at home at 3L, receiving
VN services with [facility], would like to resume. [employer] was independent, no longer drives, no history of psychiatric hospitalizations. [facility] and PCP is [facility] that visit patient in her home. Anticipate home with
resumption of [facility] VN services.
[2024-04-06 15:35] VITALS: BP 118/86
[2024-04-06] MEDS: LOVENOX 40 MG SC (17:03)
[2024-04-06] MEDS: ZYRTEC 10 MG PO (17:03)
[2024-04-06] MEDS: XANAX 2 MG PO ×2 (17:03→22:06)
[2024-04-06] MEDS: CHLORASEPTIC/SORE THROAT SPRAY 1 SPRAY PO (20:40)
[2024-04-06] MEDS: CRESTOR 5 MG PO (20:40)
[2024-04-06] MEDS: AMBIEN 5 MG PO (22:58)
[2024-04-06 23:31] VITALS: BP 137/84
[2024-04-07] MEDS: MORPHINE SULFATE 2 MG IV ×4 (05:23→20:56)
[2024-04-07] MEDS: ZOFRAN 4 MG IV ×2 (05:27→20:56)
[2024-04-07] MEDS: SPIRIVA RESPIMAT 2.5 MCG 1 PUFF INH (05:59)
[2024-04-07 07:30] VITALS: BP 142/83
[2024-04-07] MEDS: XANAX 2 MG PO ×3 (09:27→22:02)
[2024-04-07] MEDS: DELTASONE 5 MG PO ×2 (09:28→22:03)
[2024-04-07] MEDS: PROCARDIA XL (EXTENDED RELEASE) 30 MG PO (09:28)
[2024-04-07] MEDS: WELLBUTRIN XL (24 hour extended release) 300 MG PO (09:28)
[2024-04-07] MEDS: PROTONIX 40 MG PO (09:28)
[2024-04-07] MEDS: PEPCID 20 MG PO (09:28)
[2024-04-07] MEDS: CHLORASEPTIC/SORE THROAT SPRAY 1 SPRAY PO ×3 (09:44→20:57)
--- NOTE | 2024-04-07 09:47 | W.PN.GS2 ---
Addendum entered and electronically signed by Juan M Hammond MD 04/07/24 12:12:
This is a 69-year-old female with severe COPD on home oxygen with known ventral and paraesophageal hernias. She has been evaluated by our group here and deemed to be a very high risk candidate for postoperative complications. She was evaluated at
the [facility] by general surgeon there who came to the same conclusion. Though the ventral hernia defect size is only moderate, though volume of the contents is fairly significant and repairing this in isolation would likely worsen
her hiatal hernia significantly, thus she would need an open hiatal hernia and ventral hernia repair. However, repairing both of these would put significant pressure on her diaphragm and restrict her lungs which are already fairly weak. While I
have no doubt we could get her through surgery, postoperatively I would be very concerned about her pulmonary status and she has a high risk of needing prolonged paralytics and intubation. Ultimately, she needs to be evaluated a hernia specialist
which we will try and coordinate.
For now continue nonoperative management of her partial small bowel obstruction.
Wean narcotics as able. I strongly believe narcotics are contributing to her constipation and slow transit which are worsening her pain for which she is taking Vicodin. This vicious cycle is only making her pain, constipation and hernias worse.
N.p.o., continue NG tube to low intermittent wall suction.
Okay for bowel regimen from below.
General surgery will continue to follow.
Original Note:
Today's Communication / Plan
-
Continue NGT to LIWS
Assessment / Plan
-
69-year-old female with PMH of severe COPD (on home O2 2-5L), hypothyroid, HTN, HLD, breast cancer, and known ventral hernia and paraesophageal hernia (evaluated previously at [facility] and determined to not be a surgical candidate due to severe COPD)
who presents with abdominal pain associated with nausea and acid reflux, but having bowel function. A CT was done showing her ventral hernia with incarcerated transverse colon and edge of liver, stable size and without concern for strangulation or
obstruction, thickening of the proximal loops of jejunum concerning for enteritis.
Symptomatic improvement with NGT
AFVSS
NGT with bilious outputs
--No acute surgical intervention currently indicated. As she is at significantly increased perioperative risk; recommend continued maximization of nonoperative measures with NGT to decompress the stomach and IV fluids, continue n.p.o.
� Continue DVT PPx
� OOB, encourage IS
- Daily enema if no BM
� Medical management as per hospitalist
Subjective Data
-
Date of Service: April 07, 2024
Patient seen and examined at bedside with Dr. Hammond. Nausea this am. Pain much improved since placement of NGT. Passing flatus, no BM as of yet.
Objective Data
-
Intake and Output
04/06/24 04/07/24 04/08/24
06:59 06:59 06:59
Intake Total 160 / 160 1840 / 1840
Output Total 2350 / 2350
Balance 160 / 160 -510 / -510
Intake:
Oral fluids 720 / 720
IV fluids (Total) 160 / 160 720 / 720
Amount instilled into GI Tube ( 400 / 400
Total)
Imperial Sump 400 / 400
Output:
Gastrointestinal tube output ( 950 / 950
Total)
Imperial Sump 950 / 950
Urine, Voided 1400 / 1400
Other:
Number of approximated MODERATE 1 0
amounts of urine
Number of approximated LARGE 2
amounts of urine
Vital Signs
Temp Pulse Resp BP Pulse Ox
97.4 F 100 18 142/83 99
04/07/24 07:30 04/07/24 09:28 04/07/24 07:30 04/07/24 09:28 04/07/24 07:30
Lab Results
04/06/24 08:53
04/06/24 08:53
Calcium 9.4 mg/dl (8.4-10.2) 04/06/24 08:53
Total Bilirubin 0.4 mg/dl (0.2-1.3) 04/05/24 20:43
AST 26 U/L (14-36) 04/05/24 20:43
ALT 18 U/L (0-35) 04/05/24 20:43
Alkaline Phosphatase 98 U/L (38-126) 04/05/24 20:43
Total Protein 7.0 g/dl (6.3-8.2) 04/05/24 20:43
Albumin 4.2 g/dl (3.5-5.0) 04/05/24 20:43
Physical Exam
-
NAD
ABD Soft, tenderness to hernia site, soft, large ventral hernia noted which is soft and reducible. NGT with bilious outputs
--- NOTE | 2024-04-07 10:22 | W.PN.HOSP.TC ---
Today's Communication/Plan
-
see bold
Assessment / Plan
Assessment / Plan
Gen: NAD, AAOx3.
Eyes: EOMI, PERRLA, no scleral icterus.
Neck: supple.
CV: RRR, +S1/S2, no m/r/g.
Resp: CTAB, no rales, wheezes, or rhonchi.
Abd: +BS, soft, ND. Large ventral hernia that is soft, mildly tender to palpation, and with bowel sounds
Skin: No rashes.
Neuro: remains CN 2-12 intact, non-focal.
Psych: Normal mood and affect.
CT A/P:
1. Moderate-sized paraesophageal hiatal hernia. Severe distention of the stomach and proximal duodenum with fluid and partially digested food material. Mild to moderate circumferential wall thickening throughout the proximal jejunal small bowel
loops. An acute gastroenteritis is a diagnostic possibility.
2. LARGE MIDLINE SUPRAUMBILICAL ANTERIOR ABDOMINAL WALL HERNIA containing a large loop of transverse colon and a small portion of the left lobe of the liver.
3. Mild intrahepatic and extrahepatic biliary dilatation which is likely secondary to previous cholecystectomy.
4. Severe diverticulosis in the descending and sigmoid colon.
5. Moderate-sized cystocele.
6. 4.0 cm benign-appearing cyst in the left side of the pelvis which is unchanged.
7. Small bilateral indirect inguinal hernias.
8. Severe discogenic degenerative disease and facet joint arthrosis in the lumbar spine.
Abdominal pain due to chronic ventral hernia:
-Patient complains of worsening abdominal pain with ventral hernia. CT scan is unchanged showing the large ventral hernia and hiatal hernia. She has worse reflux symptoms with some nausea. No vomiting. Has been having BMs. Intolerant of PO.
-cont NGT to LIWS
-NPO
-cont D5 1/2 NS at 60 ml/hr
-PRN Pepcid/Maalox
-antiemetics and pain control
-surgery following
Chronic hypoxemic respiratory failure due to COPD:
-Not in acute exacerbation
-Continue NC 3L/min
-cont Spiriva/prednisone
Essential HTN:
-cont nifedipine (if NGT is clamped long enough)
FULL/lovenox
Anticipated Discharge: > 48 hours
Subjective/Interval History
-
Date of Service: April 07, 2024
Abdominal pain improved from yesterday.
Objective Data
-
Vital Signs:
Vital Signs
Temp Pulse Resp BP Pulse Ox
97.4 F 100 18 142/83 99
04/07/24 07:30 04/07/24 09:28 04/07/24 07:30 04/07/24 09:28 04/07/24 07:30
I&O
04/06/24 04/07/24 04/08/24
06:59 06:59 06:59
Intake Total 160 / 160 1840 / 1840
Output Total 2350 / 2350
Balance 160 / 160 -510 / -510
--- NOTE | 2024-04-07 10:25 | VNURNOTE ---
Patient is current with [facility] since 02/24 w/SN/PT, will monitor progress and plan at discharge.
[2024-04-07] MEDS: LINZESS 145 MCG PO (10:30)
[2024-04-07] MEDS: D5/0.45%NACL 1000 IV (11:43)
[2024-04-07 11:44] LABS: Hematocrit 35.3 % (37.0-47.0); Hemoglobin 10.9 g/dL (12.0-16.0); Mean Corp Hgb Conc. 30.9 g/dL (33.0-37.0); Mean Corpuscular Hgb 28.9 pg (27.0-31.0); Mean Corpuscular Volume 93.6 fL (81.0-99.0); Mean Platelet Volume 8.6 fL (7.4-10.4); Platelet Count 317 10^3/uL (130-400); Red Blood Cell Count 3.77 10^6/uL (4.20-5.40); Red Cell Dist. Width 13.5 % (11.5-14.5); White Blood Cell Count 12.7 10^3/uL (4.8-10.8)
[2024-04-07 11:58] LABS: Blood Urea Nitrogen 8 mg/dl (7-17); Calcium 9.4 mg/dl (8.4-10.2); Carbon Dioxide 34 mmol/L (22-30); Chloride 98 mmol/L (98-107); Estimated Creatinine Clearance 69 ml/min; Glucose 102 mg/dl (70-99); Potassium 4.3 mmol/L (3.5-5.1); Sodium 136 mmol/L (135-145); eGFR > 60.00
[2024-04-07] MEDS: BENADRYL 25 MG IV (12:56)
[2024-04-07 15:40] VITALS: BP 139/84
[2024-04-07 16:46] VITALS: BMI 18.6
[2024-04-07] MEDS: LOVENOX 40 MG SC (18:39)
[2024-04-07] MEDS: ZYRTEC 10 MG PO (18:39)
[2024-04-07] MEDS: DULCOLAX 10 MG RECTAL (18:40)
[2024-04-07] MEDS: CRESTOR 5 MG PO (22:02)
[2024-04-07] MEDS: AMBIEN 5 MG PO (23:05)
[2024-04-07 23:31] VITALS: BP 134/93
[2024-04-08] MEDS: MORPHINE SULFATE 2 MG IV ×4 (00:19→13:22)
[2024-04-08] MEDS: XANAX 2 MG PO ×2 (02:22→13:22)
[2024-04-08] MEDS: CHLORASEPTIC/SORE THROAT SPRAY 1 SPRAY PO ×2 (02:25→04:46)
[2024-04-08] MEDS: D5/0.45%NACL 1000 IV ×2 (03:11→22:06)
[2024-04-08] MEDS: ZOFRAN 4 MG IV ×4 (03:20→20:38)
[2024-04-08 06:53] LABS: Blood Urea Nitrogen 11 mg/dl (7-17); Calcium 9.9 mg/dl (8.4-10.2); Carbon Dioxide 35 mmol/L (22-30); Chloride 94 mmol/L (98-107); Estimated Creatinine Clearance 69 ml/min; Glucose 116 mg/dl (70-99); Potassium 3.9 mmol/L (3.5-5.1); Sodium 134 mmol/L (135-145); eGFR > 60.00
--- NOTE | 2024-04-08 07:37 | W.PN.HOSP.TC ---
Addendum entered and electronically signed by Herbert Mcrae MD 04/08/24 11:34:
Moderate protein calorie malnutrition.
Original Note:
Today's Communication/Plan
-
see bold
Assessment / Plan
Assessment / Plan
Gen: NAD, AAOx3.
Eyes: EOMI, PERRLA, no scleral icterus.
Neck: supple.
CV: tachy, reg rhythm, +S1/S2, no m/r/g.
Resp: CTAB, no rales, wheezes, or rhonchi.
Abd: +BS, soft, ND. Large ventral hernia that is soft, mildly tender to palpation, and with bowel sounds. L-sided TTP.
Skin: No rashes.
Neuro: continues to remain CN 2-12 intact, non-focal.
Psych: Normal mood and affect.
CT A/P:
1. Moderate-sized paraesophageal hiatal hernia. Severe distention of the stomach and proximal duodenum with fluid and partially digested food material. Mild to moderate circumferential wall thickening throughout the proximal jejunal small bowel
loops. An acute gastroenteritis is a diagnostic possibility.
2. LARGE MIDLINE SUPRAUMBILICAL ANTERIOR ABDOMINAL WALL HERNIA containing a large loop of transverse colon and a small portion of the left lobe of the liver.
3. Mild intrahepatic and extrahepatic biliary dilatation which is likely secondary to previous cholecystectomy.
4. Severe diverticulosis in the descending and sigmoid colon.
5. Moderate-sized cystocele.
6. 4.0 cm benign-appearing cyst in the left side of the pelvis which is unchanged.
7. Small bilateral indirect inguinal hernias.
8. Severe discogenic degenerative disease and facet joint arthrosis in the lumbar spine.
Abdominal pain due to chronic ventral hernia:
-Patient complains of worsening abdominal pain with ventral hernia. CT scan is unchanged showing the large ventral hernia and hiatal hernia. She has worse reflux symptoms with some nausea. No vomiting. Has been having BMs. Intolerant of PO.
-cont NGT to LIWS
-NPO
-cont D5 1/2 NS at 60 ml/hr
-PRN Pepcid/Maalox
-antiemetics and pain control
-surgery following. Case discussed with Dr. Hammond on 04/07/24. Pt currently is not a surgical candidate as per Dr. Hammond.
Chronic hypoxemic respiratory failure due to COPD:
-Not in acute exacerbation
-Continue NC 3L/min
-cont Spiriva/prednisone
Essential HTN:
-cont nifedipine (if NGT is clamped long enough)
-current BPs acceptable
FULL/Lovenox
Anticipated Discharge: > 48 hours
Subjective/Interval History
-
Date of Service: April 08, 2024
Patient complains of nausea and vomiting despite NG tube in place. Complains of abdominal pain.
Objective Data
-
Labs:
Laboratory Results
04/08/24
05:55
Sodium 134 L
Potassium 3.9
Chloride 94 L
Carbon Dioxide 35 H
BUN 11
Creatinine 0.5 L
Glucose 116 H
Calcium 9.9
Vital Signs:
Vital Signs
Temp Pulse Resp BP Pulse Ox
97.6 F 114 18 134/93 98
04/07/24 23:31 04/07/24 23:31 04/07/24 23:31 04/07/24 23:31 04/07/24 23:31
I&O
04/07/24 04/08/24 04/09/24
06:59 06:59 06:59
Intake Total 1840 / 1840 1290 / 1290
Output Total 2350 / 2350 1800 / 1800
Balance -510 / -510 -510 / -510
[2024-04-08 07:45] VITALS: BP 115/78
[2024-04-08] MEDS: SPIRIVA RESPIMAT 2.5 MCG INH (07:55)
--- NOTE | 2024-04-08 08:09 | W.PN.GS2 ---
Addendum entered and electronically signed by Michael Inman MD 04/08/24 11:06:
NGT with placement confirmed and no significant gastric bubble (though on CT scan this appears to be mostly fecalized stomach contents and less air). Continue with NGT decompression. Tentative plan for UGI for further workup and assessment of her
PEH, obstruction, and gastric dysmotility. No plans or indication for surgical intervention at this time. Complex issue with questions of surgical indication and improvement of symptoms combined with severe high risk for operative intervention.
Original Note:
Today's Communication / Plan
-
-- No plans for surgical intervention; continued maximization of nonoperative measures with NGT to decompress the stomach and IV fluids, continue NPO and PPI
-- Abd X-ray to assess gastric distention
Assessment / Plan
-
69-year-old female with PMH of severe COPD (on home O2 2-5L), hypothyroid, HTN, HLD, breast cancer, and known ventral hernia and paraesophageal hernia (evaluated previously at [facility] and determined to not be a surgical candidate due to severe COPD)
who presents with abdominal pain associated with nausea and acid reflux, but having bowel function.
A CT was done showing her ventral hernia with incarcerated transverse colon and edge of liver, stable size and without concern for strangulation or obstruction, thickening of the proximal loops of jejunum concerning for enteritis.
Symptomatic improvement with NGT
AFVSS
NGT with high volume non-bilious outputs
Difficult and complicated situation. Symptomatic ventral hernia and PEH. Repair is technically indicated but not emergent and question utility. A large portion of her current symptoms appear to be gastroparesis likely medication induced (her PEH
and ventral hernia should not be causing the degree of gastric distension on her CT). High risk for operative complications - pulmonary vent dependence and recurrence. Situation complicated by severe COPD and polypharmacy including narcotic ileus,
benzos, and steroid use. No plans for surgery at this time.
- No plans for surgical intervention; continued maximization of nonoperative measures with NGT to decompress the stomach and IV fluids, continue NPO
- Abd X-ray
� Continue DVT and GI PPx
� OOB, encourage IS
- Daily enema if no BM
� Medical management as per hospitalist
Subjective Data
-
Date of Service: April 08, 2024
Complaints of NGT soreness and nausea. Denies worsening abdominal pain. No fevers.
Objective Data
-
Intake and Output
04/07/24 04/08/24 04/09/24
06:59 06:59 06:59
Intake Total 1840 / 1840 1290 / 1290
Output Total 2350 / 2350 1800 / 1800
Balance -510 / -510 -510 / -510
Intake:
Oral fluids 720 / 720 240 / 240
IV fluids (Total) 720 / 720 720 / 720
Amount instilled into GI Tube ( 400 / 400 330 / 330
Total)
Cobb Sump 400 / 400 330 / 330
Output:
Gastrointestinal tube output ( 950 / 950 1800 / 1800
Total)
Cobb Sump 950 / 950 1800 / 1800
Urine, Voided 1400 / 1400
Other:
Number of approximated MODERATE 0 3
amounts of urine
Number of approximated LARGE 2
amounts of urine
How many times incontinent 1
SMALL amount urine
How many times incontinent 2
MODERATE amount urine
Vital Signs
Temp Pulse Resp BP Pulse Ox
97.6 F 114 18 134/93 98
04/07/24 23:31 04/07/24 23:31 04/07/24 23:31 04/07/24 23:31 04/07/24 23:31
Lab Results
04/07/24 11:34
04/08/24 05:55
Calcium 9.9 mg/dl (8.4-10.2) 04/08/24 05:55
Total Bilirubin 0.4 mg/dl (0.2-1.3) 04/05/24 20:43
AST 26 U/L (14-36) 04/05/24 20:43
ALT 18 U/L (0-35) 04/05/24 20:43
Alkaline Phosphatase 98 U/L (38-126) 04/05/24:43
Total Protein 7.0 g/dl (6.3-8.2) 04/05/24:
Albumin 4.2 g/dl (3.5-5.0) 04/05/24 20:43
Physical Exam
-
Gen: NAD
HEENT: NGT with gastric outputs
Abd: soft, NT, mild distension, hernia soft and reducible, no overlying skin changes
[2024-04-08] MEDS: WELLBUTRIN XL (24 hour extended release) PO ×2 (08:22→10:02)
[2024-04-08] MEDS: PROCARDIA XL (EXTENDED RELEASE) PO ×2 (08:22→10:02)
[2024-04-08] MEDS: PROTONIX IV 40 MG IV (08:23)
[2024-04-08] MEDS: DELTASONE PO ×2 (08:23→10:02)
[2024-04-08] MEDS: NSS (PRESERVATIVE FREE) 10 ML IV (08:23)
[2024-04-08] MEDS: LINZESS PO ×2 (08:23→10:02)
[2024-04-08] MEDS: REGLAN 10 MG IV ×2 (09:29→20:12)
--- NOTE | 2024-04-08 09:33 | PN.CDI ---
CDI
- -
CDI:
Physician Documentation Request
Admit Date: 04/07/24 11:19
Dear Doctor Thor,
Please review the following and provide your response in the progress notes.
Clinical Indicators:
Pt admitted with large ventral hernia abdominal pain/Partial SBO
Documented per nutrition consult 04/07 @ 1646,'Pt reports poor appetite and admits she doesn't eat much due to pain from her hernias as well as COPD causing her to be SOB while eating.
CBW: 108 lb 5 oz BMI 18.6 normal range (underweight for adults >65 years) 04/06; 109 lb 4.8 oz 02/05; 113 lb 5.082 oz 11/05; 102 lb 1.184 oz 04/05/23. Weight hx variable; <5% weight loss over the past 6 months not significant.Muscle and fat loss noted.
Per ASPEN/AND guidelines, pt meets for moderate malnutrition in the context of chronic illness as evidenced by <75% intake estimated needs x > 3 months, fat and muscle loss.RD to monitor per level of care....Subcutaneous loss over rib cage - Mild /
orbital -mild..muscle loss over clavicle mild/temporal -mild /buccal mild ...'
Based on the above information and your assessment, which of the following most accurately represents the patient's nutritional status?
Moderate malnutrition
Mild malnutrition
Other (please specify)
[place] Criteria ([employer] Hospitalist 2017)
2 or more criteria must be present for either
non severe or severe malnutrition
Note that the criteria differs related to the
presence of an acute or chronic illness
Acute Illness Chronic Illness
Energy Intake Non Severe: <75% for >7 days Non Severe: <75% for >1 month
Severe: <50% for >5 days Severe: <75% for >1 month
Weight Loss Non Severe: 1-2% over 1 week Non Severe: 5% over 1 month
5% over 1 month 7.5% over 3 months
7.5% over 3 months 10% over 6 months
1 year N/A 20% over 1 year
Severe: >2% over 1 week Severe: >5% over 1 month
>5% over 1 month >7.5% over 3 months
>7.5% over 3 months >10% over 6 months
1 year N/A >20% over 1 year
Body Fat Non Severe: Mild Decrease Non Severe: Mild Loss
Severe: Moderate Decrease Severe: Severe Loss
Muscle Mass Non Severe: Mild Decrease Non Severe: Mild Loss
Severe: Moderate Decrease Severe: Severe Loss
Fluid Accumulation Non Severe: Mild Accumulation Non Severe: Mild Accumulation
Severe: Moderate to severe Severe: Moderate to severe
accumulation accumulation
Reduced Installer Helper Strength Non Severe: N/A Non Severe: N/A
Severe: Measurably reduced Severe: Measurably reduced
Use of terms such as suspected, likely, concern for, or probable (associated with a specific diagnosis that is being evaluated, monitored, or treated as if it exists) are acceptable and can be coded in the inpatient setting, when documented at the
time of discharge.
Thank you,
Fauzia Villeda RN
CDI Specialist
[facility]
Please use your independent medical judgment in providing your response.
--- NOTE | 2024-04-08 12:16 | CON.GI ---
Addendum entered and electronically signed by Zehra Calero DO 04/08/24 14:47:
Patient seen and examined independently of BULLDOGGER. I agree with her note with my additions below
Danielle is a 69-year-old female visiting here from [place] who normally gets her care at [facility] who has a past medical history of COPD on chronic 3 L of oxygen, large ventral and paraesophageal hernias upper GI bleed in the
past in January 2023 thought to be secondary to severe esophagitis and ulceration due to reflux from the paraesophageal hernia who also has a history of breast cancer status post chemoradiation who came in with an acute on chronic episode of her
abdominal pain nausea and vomiting. General surgery is on board and following her for the large ventral hernia as a questionable etiology of her symptoms. She is a poor surgical candidate secondary to her pulmonary disease and tells us that
[facility] has refused surgery because she is too high risk and just gives her narcotics to keep the pain under control which then spirals her into significant constipation. She is on multiple constipating medications including
narcotics, Wellbutrin. Bowel movements are generally twice a week soft and normal but infrequent. She is passing gas currently. She takes a significant regimen of mostly softeners including Colace, MiraLAX as well as more stimulating senna,
Linzess was started a couple of months ago. Also on lactulose.
Currently she is very nauseated and retching in front of me. I placed the NG tube on high suction to relieve some of the bile then returned back to intermittent.
# Abdominal pain, nausea vomiting -she does not appear to be completely obstructed as she is passing gas
-- Her CT imaging is pretty impressive with a good amount of her bowel in the hernia sac -on exam you can feel hard stool
-- Patient currently takes Ativan 2 mg 4 times a day, IV could be very helpful in this setting which can also be helpful with nausea
-- Change Linzess to Amitiza especially in the setting of narcotic induced constipation
-- Agree with surgery to proceed with an upper GI series when possible
-- IV Zofran, IV pantoprazole
-- She is on multiple medications that cause constipation including bupropion, nifedipine, narcotics
-- start daily Miralax to help soften the stool in the colon
- will follow
Original Note:
Consultation
-
Date/Time Consultation Requested: 04/08/24 0956
Date/Time Consultation Performed: 04/08/24 1145
Requesting Provider: Dr. Mcrae
Performing Provider: Dr. Calero/MYLES Shaikh
Reason for Consultation: possible gastroparesis
Medical History
Chief Complaint / HPI
Chief Complaint: abd pain, N/V
History of Present Illness:
69-year-old female with PMH of COPD on 3L O2, chronic pain on narcotics at home, hypothyroid, HTN, HLD, large ventral hernia, UGIB secondary to severe esophagitis with circumferential ulceration and overlying clot 02/08/23, constipation, hx Breast
CA s/p CTX/XRTwho presents to the ER with recurrent abdominal pain that is increased from her usual pain associated with nausea and vomiting. Asked to evaluate for possible gastroparesis. She has had 2 colonoscopies at the [facility]
[place] over the past 10 years which have been okay by her report. She did have an endoscopy in January 2023 after coffee-ground emesis after intubation and was noted to have severe esophagitis. She did not follow-up for repeat endoscopy. She
usually follows up with [facility] though has been hesitant to do any further procedures given her severe COPD. She denies any dysphagia, odynophagia, nausea or vomiting now. The patient tells me that she is on chronic Vicodin and
sometimes oxycodone. She states that last she developed worse abdominal pain than her usual chronic abdominal pain from her hernia. She states this started in the right upper quadrant and across to the left upper quadrant. She states
that the pain was sharp heartburn and constant with periods of increased intensity. She states that Vicodin will make the pain better. Nothing would make the pain worse. She was able to continue eating until Sunday when she started having
nausea and vomiting. She states that this was then continuous with increased pain and she proceeded to come to the emergency room. The patient does have a history of chronic constipation where she requires Colace, senna, MiraLAX and lactulose on a
daily basis. This usually produces 2 bowel movements a week (once every 3 days) that is soft, and long. The patient had not had a bowel movement during this time. She was given a suppository and she states that 'foam came out'. She has since had
an NG tube placed with approximately 250 cc of green/brown bilious fluid she states that her discomfort has not improved with the NG tube placement.
Past Medical History
Past Medical History: Cancer (breast cancer), COPD, GERD (Severe esophagitis with circumferential ulceration overlying clot (02/08/2023)), HTN, Hypercholesterolemia and Other (severe COPD, large ventral hernia and chronic hypoxemia and hypercapnia,
Anxiety / Depression History of Breast Cancer s/p Surgery, Chemo and XRT)
Past Surgical History: Other (Lumpectomy)
Social History
Tobacco: Former Smoker
Alcohol: None
Family History
Family History: Other (Mother rectal cancer)
Allergies / Home Medications
Allergy/AdvReac Type Severity Reaction Status Date / Time
Iodinated Contrast Media Allergy Tongue Verified 02/01/24 18:31
Swelling
Iodine and Iodide Containing Allergy Tongue Verified 02/01/24 18:31
Produc Swelling
shellfish derived Allergy Tongue Verified 02/01/24 18:31
Swelling
aspirin AdvReac Nausea / Verified 02/01/24 18:31
Vomiting
�Medication �Instructions �Recorded
multivitamin with folic acid 400 1 tab PO DAILY Supplement 02/28/22
mcg tablet (Tab-A-Charles)
bupropion HCl 300 mg 24 hr tablet, 300 mg PO DAILY Mental 02/04/23
extended release Health/Anxiety
dexlansoprazole 60 mg 60 mg PO DAILY Gastrointestinal 02/04/23
capsule,biphase delayed release issue
fluticasone 250 mcg-salmeterol 50 1 inh inhalation R BID 02/04/23
mcg/dose blistr powdr for Lung/breathing issues
inhalation (Advair Diskus)
ivabradine 5 mg tablet (Corlanor) 5 mg PO BID Heart disease/condition 02/04/23
levocetirizine 5 mg tablet 5 mg PO QPM Allergies 02/04/23
linaclotide 145 mcg capsule 145 mcg PO DAILY Constipation 02/04/23
(Linzess)
ondansetron HCl 8 mg tablet 8 mg PO BID nausea 02/04/23
rosuvastatin 5 mg tablet 5 mg PO HS High cholesterol 02/04/23
tiotropium bromide 18 mcg capsule 1 cap inhalation R DAILY 02/04/23
with inhalation device (Spiriva Lung/breathing issues
with HandiHaler)
vortioxetine 20 mg tablet 20 mg PO DAILY Mental 02/04/23
(Trintellix) Health/Anxiety
nifedipine 30 mg tablet,extended 30 mg PO DAILY #30 tabs 02/12/23
release
prednisone 5 mg tablet 10 mg PO DAILY Anti-Inflammatory 05/30/23
lactulose 10 gram/15 mL (15 mL) 10 g PO DAILYPRN PRN CONSTIPATION 05/31/23
oral solution
sennosides 8.6 mg tablet (senna) 17.2 mg PO HS Constipation 05/31/23
levalbuterol HCl 0.63 mg/3 mL 0.63 mg (3 mL) inhalation R Q6HPRN 06/05/23
solution for nebulization PRN SOB or wheezing #72 mL
alprazolam 2 mg tablet 2 mg PO QIDPRN PRN anxiety 02/01/24
polyethylene glycol 3350 17 gram 17 g PO DAILYPRN PRN constipation 02/01/24
oral powder packet (Miralax)
zolpidem 6.25 mg tablet,extended 6.25 mg PO HSPRN PRN sleep 02/01/24
release,multiphase (Ambien CR)
docusate sodium 100 mg capsule 100 mg PO BID Constipation #0 caps 02/06/24
hydrocodone 7.5 mg-acetaminophen 1 tab PO Q8HPRN PRN moderate pain 02/06/24
325 mg tablet #7 tabs
Review of Systems
-
All other systems: A 12 pt ROS was Negative except as stated above in HPI
Vital Signs
Temp Pulse Resp BP Pulse Ox
97.5 F 125 18 115/78 99
04/08/24 07:45 04/08/24 07:45 04/08/24 07:45 04/08/24 07:45 04/08/24 07:45
Physical Exam
Exam
General: No Apparent Distress
HEENT: Anicteric and Other (NGT in place, 250 cc green/bilious fluid output)
Respiratory: Clear (anterior on supplemental O2)
Cardiac: Regular Rhythm
GI: Soft, Tender (at ventral hernia (mild) ) and Other (large ventral hernia with palpable bowel and stool )
Skin: Warm and Dry
Neuro: AO x 3
Psych: Calm
Results
WBC 12.7 10^3/uL (4.8-10.8) H 04/07/24 11:34
Hgb 10.9 g/dL (12.0-16.0) L 04/07/24 11:34
Hct 35.3 % (37.0-47.0) L 04/07/24 11:34
MCV 93.6 fL (81.0-99.0) 04/07/24 11:34
Plt Count 317 10^3/uL (130-400) 04/07/24 11:34
Absolute Neuts (auto) 8.6 10^3/uL (1.4-6.5) H 04/05/24 20:43
Sodium 134 mmol/L (135-145) L 04/08/24 05:55
Potassium 3.9 mmol/L (3.5-5.1) 04/08/24 05:55
Chloride 94 mmol/L (98-107) L 04/08/24 05:55
Carbon Dioxide 35 mmol/L (22-30) H 04/08/24 05:55
BUN 11 mg/dl (7-17) 04/08/24 05:55
Creatinine 0.5 mg/dL (0.6-1.0) L 04/08/24 05:55
Calcium 9.9 mg/dl (8.4-10.2) 04/08/24 05:55
Total Bilirubin 0.4 mg/dl (0.2-1.3) 04/05/24 20:43
AST 26 U/L (14-36) 04/05/24 20:43
ALT 18 U/L (0-35) 04/05/24 20:43
Alkaline Phosphatase 98 U/L (38-126) 04/05/24 20:43
Lipase 109 U/L (23-300) 04/05/24 20:43
Diagnostic Image Results:
Abd XR 04/08/24:
FINDINGS:
NG tube side port and tip terminate over the stomach.
Bowel: There is a nonobstructive bowel gas pattern. Moderate diffuse colonic stool burden.
Peritoneum: No evidence of pneumoperitoneum noting limited evaluation on supine view.
Osseous/calcific structures: No abnormal calcifications or osseous abnormalities.
Abd XR 04/06/24:
IMPRESSION:
The tip of the nasogastric tube is at the junction of the body and antrum of the stomach
Electronically signed by Chet George MD, 04/06/2024 12:33 PM
Abd XR 04/06/24:
IMPRESSION:
1. New nasogastric tube in place with the tip located in the gastric antrum.
2. Interval decrease in gastric distention.
3. Moderate-sized paraesophageal hiatal hernia.
4. Large amount of fecal material throughout the colon.
5. Previous cholecystectomy.
Electronically signed by Cameron Pablo MD, 04/06/2024 12:[address] Abd/Pelvis with IV contrast 04/05/24:
IMPRESSION:
1. Moderate-sized paraesophageal hiatal hernia. Severe distention of the stomach and proximal duodenum with fluid and partially digested food material. Mild to moderate circumferential wall thickening throughout the proximal jejunal small bowel
loops. An acute gastroenteritis is a diagnostic possibility.
2. LARGE MIDLINE SUPRAUMBILICAL ANTERIOR ABDOMINAL WALL HERNIA containing a large loop of transverse colon and a small portion of the left lobe of the liver.
3. Mild intrahepatic and extrahepatic biliary dilatation which is likely secondary to previous cholecystectomy.
4. Severe diverticulosis in the descending and sigmoid colon.
5. Moderate-sized cystocele.
6. 4.0 cm benign-appearing cyst in the left side of the pelvis which is unchanged.
7. Small bilateral indirect inguinal hernias.
8. Severe discogenic degenerative disease and facet joint arthrosis in the lumbar spine.
A preliminary interpretation was provided by [facility] teleradiology service. The preliminary report was faxed to the Emergency Department at 10:21 PM on 04/05/2024. The findings were communicated to Perry Lozada of Colorectal Surgery on
04/06/2024 at 8:24 AM through [employer].
Electronically signed by Cameron Pablo MD, 04/06/2024 8:42 AM
Prior GI Procedures:
EGD: 02/04/2023 ([facility]) - Severe esophagitis with ulceration and large
overlying clot
- Erosive gastropathy with stigmata of recent bleeding.
- Normal examined duodenum.
- No specimens collected.
Repeat was recommended in 2 months to eval for healing. Patient never had.
Colonoscopy: '10 years ago at [facility]'
Assessment / Plan
-
69-year-old female with PMH of COPD on 3L O2, chronic pain on narcotics at home, hypothyroid, HTN, HLD, large ventral hernia, UGIB secondary to severe esophagitis with circumferential ulceration and overlying clot 02/08/23, constipation, hx Breast
CA s/p CTX/XRTwho presents to the ER with recurrent abdominal pain that is increased from her usual pain associated with nausea and vomiting. Asked to evaluate for possible gastroparesis. She has had 2 colonoscopies at [facility] over the past 10 years which have been okay by her report. She did have an endoscopy in January 2023 after coffee-ground emesis after intubation and was noted to have severe esophagitis. She did not follow-up for repeat endoscopy. She
usually follows up with [facility] though has been hesitant to do any further procedures given her severe COPD. She denies any dysphagia, odynophagia, nausea or vomiting now. The patient tells me that she is on chronic Vicodin and
sometimes oxycodone. She states that last she developed worse abdominal pain than her usual chronic abdominal pain from her hernia. She states this started in the right upper quadrant and across to the left upper quadrant. She states
that the pain was sharp heartburn and constant with periods of increased intensity. She states that Vicodin will make the pain better. Nothing would make the pain worse. She was able to continue eating until Sunday when she started having
nausea and vomiting.
Impression:
Abdominal pain
Large ventral hernia
Constipation
Moderate paraesophageal hernia with distention of stomach/duodenum with food and fluid
Plan:
-NPO continue IVF
-Continue NGT to LIS
-Continue IV Pantoprazole
-Will give milk and Molasses enema as patient not having much success with suppository.
-Continue to trend Abd XR
-Patient will need to reduce narcotics as this is likely a major contributor
-Will need to optimize constipation regimen eventually as well.
Data Reviewed
-
Radiology: Report Reviewed by me
CT Scan: Report Reviewed by me
Old Records: Reviewed
-
-
Thank you for consultation and allowing me to participate in the patient's care. Please call the experimental electronics developer GI physician during the after hours with any questions or concerns.
--- NOTE | 2024-04-08 13:14 | CM ---
chart reviewed: IVF; continuing with NGT decompression; further Upper GI workup; no plans for surgical intervention at this time
Plan: CM will continue to follow and support discharge needs when indicated
[2024-04-08] MEDS: MIRALAX 17 GRAMS TUBE (15:38)
[2024-04-08 15:40] VITALS: BP 127/78
[2024-04-08] MEDS: ATIVAN 1 MG IV (15:43)
[2024-04-08] MEDS: NSS (PRESERVATIVE FREE) 0.5 ML IV (15:43)
[2024-04-08] MEDS: LOVENOX 40 MG SC (17:10)
[2024-04-08] MEDS: ZYRTEC PO ×2 (17:10→17:12)
[2024-04-08] MEDS: DELTASONE 5 MG PO (20:15)
[2024-04-08] MEDS: AMITIZA 24 MCG PO (20:37)
[2024-04-08] MEDS: CRESTOR 5 MG PO (22:04)
[2024-04-08 22:46] VITALS: BP 147/99
[2024-04-08] MEDS: AMBIEN 5 MG PO (23:05)
[2024-04-09] MEDS: REGLAN 10 MG IV ×3 (04:35→20:26)
--- NOTE | 2024-04-09 07:24 | W.PN.HOSP.TC ---
Today's Communication/Plan
-
see bold
Assessment / Plan
Assessment / Plan
Gen: NAD, AAOx3, appears chronically ill.
Eyes: EOMI, PERRLA, no scleral icterus.
Neck: supple.
CV: remains tachy, reg rhythm, +S1/S2, no m/r/g.
Resp: CTAB, no rales, wheezes, or rhonchi.
Abd: +BS, soft, ND. Large ventral hernia that is soft, nontender to mild palpation, and with bowel sounds.
Skin: No rashes.
Neuro: CN 2-12 intact, non-focal.
Psych: Normal mood and affect.
CT A/P:
1. Moderate-sized paraesophageal hiatal hernia. Severe distention of the stomach and proximal duodenum with fluid and partially digested food material. Mild to moderate circumferential wall thickening throughout the proximal jejunal small bowel
loops. An acute gastroenteritis is a diagnostic possibility.
2. LARGE MIDLINE SUPRAUMBILICAL ANTERIOR ABDOMINAL WALL HERNIA containing a large loop of transverse colon and a small portion of the left lobe of the liver.
3. Mild intrahepatic and extrahepatic biliary dilatation which is likely secondary to previous cholecystectomy.
4. Severe diverticulosis in the descending and sigmoid colon.
5. Moderate-sized cystocele.
6. 4.0 cm benign-appearing cyst in the left side of the pelvis which is unchanged.
7. Small bilateral indirect inguinal hernias.
8. Severe discogenic degenerative disease and facet joint arthrosis in the lumbar spine.
Abd Xray 04/08/24: There is a nonobstructive bowel gas pattern. Moderate diffuse colonic stool burden. NG tube in stomach.
Abdominal pain due to chronic ventral hernia:
-Patient complains of worsening abdominal pain with ventral hernia. CT scan is unchanged showing the large ventral hernia and hiatal hernia. She has worse reflux symptoms with some nausea. No vomiting. Has been having BMs. Intolerant of PO.
-cont NGT to LIWS
-NPO
-cont D5 1/2 NS at 60 ml/hr
-PRN Pepcid/Maalox
-antiemetics and pain control
-surgery following. As per discussion with multiple surgeons at [facility] the patient currently is not a surgical candidate.
-appreciate GI. Linzess stopped, Amitiza started. Miralax started.
-plan for UGIS
Chronic hypoxemic respiratory failure due to COPD:
-Not in acute exacerbation
-Continue NC 3L/min
-cont Spiriva/prednisone
-as per discussion with the patient she has end-stage COPD. Her denitrator operator is at [facility], Dr. Deloris Escalera.
Essential HTN:
-cont nifedipine (if NGT is clamped long enough)
-current BPs acceptable
FULL/Lovenox
Anticipated Discharge: > 48 hours
Subjective/Interval History
-
Date of Service: April 09, 2024
c/o nausea, denies abd pain.
Objective Data
-
Labs:
Laboratory Results
04/09/24
06:30
Sodium Pending
Potassium Pending
Chloride Pending
Carbon Dioxide Pending
BUN Pending
Creatinine Pending
Glucose Pending
Calcium Pending
Vital Signs:
Vital Signs
Temp Pulse Resp BP Pulse Ox
98.4 F 133 18 147/99 100
04/08/24 22:46 04/08/24 22:46 04/08/24 22:46 04/08/24 22:46 04/08/24 22:46
I&O
04/08/24 04/09/24 04/10/24
06:59 06:59 06:59
Intake Total 1290 / 1290 950 / 950
Output Total 1800 / 1800 750 / 750
Balance -510 / -510 200 / 200
[2024-04-09] MEDS: SPIRIVA RESPIMAT 2.5 MCG INH (07:29)
[2024-04-09 07:45] LABS: Blood Urea Nitrogen 12 mg/dl (7-17); Calcium 9.7 mg/dl (8.4-10.2); Carbon Dioxide 31 mmol/L (22-30); Chloride 93 mmol/L (98-107); Estimated Creatinine Clearance 69 ml/min; Glucose 101 mg/dl (70-99); Potassium 3.8 mmol/L (3.5-5.1); Sodium 134 mmol/L (135-145); eGFR > 60.00
[2024-04-09 07:59] VITALS: BP 142/91
[2024-04-09] MEDS: AMITIZA 24 MCG PO ×2 (08:36→20:15)
[2024-04-09] MEDS: PROCARDIA XL (EXTENDED RELEASE) 30 MG PO (08:36)
[2024-04-09] MEDS: MIRALAX 17 GRAMS TUBE (08:36)
[2024-04-09] MEDS: WELLBUTRIN XL (24 hour extended release) 300 MG PO (08:37)
[2024-04-09] MEDS: DELTASONE 5 MG PO ×2 (08:37→20:15)
[2024-04-09] MEDS: PROTONIX IV 40 MG IV ×2 (08:37→20:15)
[2024-04-09] MEDS: NSS (PRESERVATIVE FREE) 10 ML IV ×2 (08:37→20:16)
[2024-04-09] MEDS: DULCOLAX 10 MG RECTAL (08:38)
[2024-04-09] MEDS: ZOFRAN 4 MG IV ×2 (08:38→15:27)
[2024-04-09] MEDS: LINZESS 145 MCG PO (09:40)
--- NOTE | 2024-04-09 10:22 | W.PN.GI.CBS2 ---
Addendum entered and electronically signed by Zehra Calero DO 04/09/24 11:59:
Patient seen and examined independently of OPERATIONS RESEARCH MANAGER. I agree with her note with my additions below
Danielle is a 69-year-old female with significant COPD on O2, large ventral and paraesophageal hernia here with significant nausea, vomiting, distention of the stomach who is on chronic narcotics
-- NG tube output appears somewhat feculent -yesterday put out 600, overnight 150 and today roughly 450
-- She did have a bowel movement -she continues Linzess and we started Amitiza
-- Continue the IV benzodiazepines which can also help with nausea and her anxiety
-- Limit narcotics as best as possible
-- General surgery ordered an upper GI series today to determine if she has a gastric outlet obstruction
-- Discussed with Dr. Fitch and RN
-- Patient is significantly tachycardic into the 140s after breathing treatment
-- High-dose PPI to decrease gastric secretions
Original Note:
Today's Communication / Plan
-
Etiology with concern for obstructive process with known large hernia, narcotic induced , gastroparesis vs other
-NPO continue IVF
-Continue NGT to LIS-- remain with higher output and feculent material
-Continue IV Pantoprazole
minimal flatus no stools
limit narcotics
remains on Miralax and Amitiza
reviewed with Dr. Fitch concern as not more tachycardic today and continued distention and feculent drainage-- await eval
consider eventual UGI series but currently would be unable to tolerate with cont NGT drainage
Assessment / Plan
-
69-year-old female with PMH of COPD on 3L O2, chronic pain on narcotics at home, hypothyroid, HTN, HLD, large ventral hernia, UGIB secondary to severe esophagitis with circumferential ulceration and overlying clot 02/08/23, constipation, hx Breast
CA s/p CTX/XRT who presents to the ER with recurrent abdominal pain that is increased from her usual pain associated with nausea and vomiting. Asked to evaluate for possible gastroparesis. She has had 2 colonoscopies at [facility] over the past 10 years which have been okay by her report. She did have an endoscopy in January 2023 after coffee-ground emesis after intubation and was noted to have severe esophagitis. She did not follow-up for repeat endoscopy. She
usually follows up with [facility] though has been hesitant to do any further procedures given her severe COPD. The patient is on chronic Vicodin and sometimes oxycodone. She states that last she developed worse abdominal
pain than her usual chronic abdominal pain from her hernia. Imaging on admission with moderate paraesophageal hernia with severe distention of stomach and duodenum with fluid and food with wall thickening in proximal jejunum. large abdominal wall
hernia with loop of transverse colon and portion of liver. duct dilation with prior hugo. moderate cystocele.
Impression:
Abdominal pain
nausea/vomiting feculent material
Large ventral hernia
leukocytosis
tachycardia
Constipation
Moderate paraesophageal hernia with distention of stomach/duodenum with food and fluid
other med problems:
-COPD with chronic O2
chronic pain with chronic pain meds
-hypothyroidism
-HTN
-hyperlipidemia
-hx esophagitis with circumferential ulcers
-chronic constipation
breast CA with prior CXT/XRT
Plan:
Etiology with concern for obstructive process with known large hernia, narcotic induced , gastroparesis vs other
-NPO continue IVF
-Continue NGT to LIS-- remain with higher output and feculent material
-Continue IV Pantoprazole
minimal flatus no stools
limit narcotics
remains on Miralax and Amitiza
reviewed with Dr. Fitch concern as not more tachycardic today and continued distention and feculent drainage-- await eval
consider eventual UGI series but currently would be unable to tolerate with cont NGT drainage
Subjective
Subjective
Date of Service: April 09, 2024
6/11 mucoid stool, NPO with NGT in place, NGT output 950--1800--750ml fecculant material-- pt states minimal change in distention
Objective
Data Reviewed
Laboratory Data:
Laboratory Results
04/07/24 11:34
04/09/24 06:30
Laboratory Results
Total Bilirubin 0.4 mg/dl (0.2-1.3) 04/05/24 20:43
AST 26 U/L (14-36) 04/05/24 20:43
ALT 18 U/L (0-35) 04/05/24 20:43
Alkaline Phosphatase 98 U/L (38-126) 04/05/24 20:43
Lipase 109 U/L (23-300) 04/05/24 20:43
Vital Signs and I&O:
Vital Signs
Temp Pulse Resp BP Pulse Ox
98.2 F 118 16 142/91 100
04/09/24 07:59 04/09/24 08:36 04/09/24 07:59 04/09/24 08:36 04/09/24 07:59
I&O
04/08/24 04/09/24 04/10/24
06:59 06:59 06:59
Intake Total 1290 / 1290 950 / 950
Output Total 1800 / 1800 750 / 750
Balance -510 / -510 200 / 200
Physical Exam
Physical Exam
HEENT: Anicteric and Moist mucous membranes
Cardiology: Other (tachy )
Pulmonary: Clear
GI: Soft, Distended, Tender and Other (area of firm ? stool in hernia, NGT with fecculant material )
Extremities: No Edema
Neuro: Non Focal
[2024-04-09] MEDS: XOPENEX 0.63 MG INHALANT SOLUTION 0.630000000000000004 MG INH (11:28)
[2024-04-09] MEDS: NSS (PRESERVATIVE FREE) 0.5 ML IV ×2 (11:33→17:43)
[2024-04-09] MEDS: ATIVAN 1 MG IV ×2 (11:33→17:43)
--- NOTE | 2024-04-09 11:35 | RESPNOTE ---
called into do PRN on pt.
pt's HR is into 150's . TT from nurse, okay to give 0.[address] Mcrae.
PRN neb given, HR stayed into high 140's throughout neb treatment.
--- NOTE | 2024-04-09 11:38 | W.PN.GS2 ---
Today's Communication / Plan
-
UGI
Assessment / Plan
-
69-year-old female with PMH of severe COPD (on home O2 2-5L), hypothyroid, HTN, HLD, breast cancer, and known ventral hernia and paraesophageal hernia (evaluated previously at [facility] and determined to not be a surgical candidate due to severe COPD)
who presents with abdominal pain associated with nausea and acid reflux, but having bowel function.
A CT was done showing her ventral hernia with incarcerated transverse colon and edge of liver, stable size and without concern for strangulation or obstruction, thickening of the proximal loops of jejunum concerning for enteritis.
Symptomatic improvement with NGT, though some intermittent nausea persists
AFVSS
NGT with 150cc out overnight
Difficult and complicated situation. Symptomatic ventral hernia and sliding type PEH. Repair is technically indicated but not emergent and question utility. A large portion of her current symptoms appear to be gastroparesis likely medication
induced (her PEH and ventral hernia should not be causing the degree of gastric distension on her CT). High risk for operative complications - pulmonary vent dependence and recurrence. Situation complicated by severe COPD and polypharmacy
including narcotic ileus, benzos, and steroid use. No plans for surgery at this time.
- No plans for surgical intervention; continued maximization of nonoperative measures with NGT to decompress the stomach and IV fluids, continue NPO
- UGI today
� Continue DVT and GI PPx
� OOB, encourage IS
- Daily enema if no BM
- Consider adding entereg to her daily regimen
� Medical management as per hospitalist
Subjective Data
-
Date of Service: April 09, 2024
Tachy, afebrile, feels the same, no new complaints, passing flatus, denies BM, feeling nauseous intermittently with NGT to suction
Objective Data
-
Intake and Output
04/08/24 04/09/24 04/10/24
06:59 06:59 06:59
Intake Total 1290 / 1290 950 / 950
Output Total 1800 / 1800 750 / 750
Balance -510 / -510 200 / 200
Intake:
Oral fluids 240 / 240 50 / 50
IV fluids (Total) 720 / 720 720 / 720
Amount instilled into GI Tube ( 330 / 330 180 / 180
Total)
[place] Sump 330 / 330 180 / 180
Output:
Gastrointestinal tube output ( 1800 / 1800 750 / 750
Total)
[place] Sump 1800 / 1800 750 / 750
Other:
Number of approximated MODERATE 3 3
amounts of urine
How many times incontinent 1
SMALL amount urine
How many times incontinent 2
MODERATE amount urine
Vital Signs
Temp Pulse Resp BP Pulse Ox
98.2 F 118 16 142/91 100
04/09/24 07:59 04/09/24 08:36 04/09/24 07:59 04/09/24 08:36 04/09/24 07:59
Lab Results
04/07/24 11:34
04/09/24 06:30
Calcium 9.7 mg/dl (8.4-10.2) 04/09/24 06:30
Total Bilirubin 0.4 mg/dl (0.2-1.3) 04/05/24 20:43
AST 26 U/L (14-36) 04/05/24 20:43
ALT 18 U/L (0-35) 04/05/24 20:43
Alkaline Phosphatase 98 U/L (38-126) 04/05/24 20:43
Total Protein 7.0 g/dl (6.3-8.2) 04/05/24 20:43
Albumin 4.2 g/dl (3.5-5.0) 04/05/24 20:43
Physical Exam
-
Gen: NAD
Abd: ventral hernia soft, reducible, mild ttp, otherwise nd, nt
[2024-04-09 11:47] VITALS: BP 126/87
--- NOTE | 2024-04-09 14:11 | W.PN.UPDATE ---
Update Note
Progress Note Update
UGI reviewed. No obstruction is evident. Will begin clamp trials.
[2024-04-09] MEDS: D5/0.45%NACL 1000 IV (15:16)
[2024-04-09 15:39] VITALS: BP 128/85
[2024-04-09] MEDS: LOVENOX 40 MG SC (17:43)
[2024-04-09] MEDS: ZYRTEC 10 MG PO (17:43)
--- NOTE | 2024-04-09 18:19 | PTCARENOTE ---
NGT clamp trial ordered per . NGT clamped residual checked 4 hours later per order. 25 mL residual. Surgeon made aware.
[2024-04-09] MEDS: CRESTOR 5 MG PO (20:15)
--- NOTE | 2024-04-09 20:47 | PTCARENOTE ---
NGT clamped per order; residual checked at 2000, 25 ml; tube flushed per order.
[2024-04-09] MEDS: AMBIEN 5 MG PO (23:18)
[2024-04-09] MEDS: MORPHINE SULFATE 2 MG IV (23:18)
[2024-04-09] MEDS: CHLORASEPTIC/SORE THROAT SPRAY 1 SPRAY PO (23:23)
[2024-04-09 23:42] VITALS: BP 160/109
[2024-04-10] MEDS: NSS (PRESERVATIVE FREE) 0.5 ML IV ×4 (01:29→23:45)
[2024-04-10] MEDS: ATIVAN 1 MG IV ×4 (01:29→23:44)
--- NOTE | 2024-04-10 02:07 | PTCARENOTE ---
NGT clamped per order; residual checked at 0000, 10 ml; tube flushed per order.
[2024-04-10 03:29] VITALS: BP 138/94
--- NOTE | 2024-04-10 05:00 | PTCARENOTE ---
Patient reported to this RN that NGT came out while she was sleeping; patient did ok with the clamp trial; Lamont BUENO made aware.
[2024-04-10 07:40] VITALS: BP 146/92
[2024-04-10] MEDS: XOPENEX 0.63 MG INHALANT SOLUTION 0.630000000000000004 MG INH ×3 (07:54→20:12)
[2024-04-10] MEDS: SPIRIVA RESPIMAT 2.5 MCG INH (07:54)
--- NOTE | 2024-04-10 07:57 | CM ---
met with patient at bedside.cont with ngt to suction,ivf,iv protonix.had ugi-still no surgical intervention of hiatal hernia.anticipate home with hcs with [facility].
[2024-04-10 08:13] LABS: Blood Urea Nitrogen 15 mg/dl (7-17); Calcium 9.5 mg/dl (8.4-10.2); Carbon Dioxide 29 mmol/L (22-30); Chloride 94 mmol/L (98-107); Estimated Creatinine Clearance 69 ml/min; Glucose 120 mg/dl (70-99); Potassium 3.7 mmol/L (3.5-5.1); Sodium 133 mmol/L (135-145); eGFR > 60.00
[2024-04-10] MEDS: NSS (PRESERVATIVE FREE) 10 ML IV ×2 (08:46→20:14)
[2024-04-10] MEDS: DELTASONE 5 MG PO ×2 (08:47→20:11)
[2024-04-10] MEDS: WELLBUTRIN XL (24 hour extended release) 300 MG PO (08:47)
[2024-04-10] MEDS: PROTONIX IV 40 MG IV ×2 (08:47→20:14)
[2024-04-10] MEDS: AMITIZA 24 MCG PO ×2 (08:47→20:11)
[2024-04-10] MEDS: PROCARDIA XL (EXTENDED RELEASE) 30 MG PO (08:47)
[2024-04-10] MEDS: D5/0.45%NACL 1000 IV (08:48)
[2024-04-10] MEDS: LINZESS 145 MCG PO (08:48)
[2024-04-10] MEDS: MIRALAX TUBE (08:48)
--- NOTE | 2024-04-10 09:16 | W.PN.HOSP.TC ---
Today's Communication/Plan
-
see bold
Assessment / Plan
Assessment / Plan
Gen: NAD, AAOx3, appears chronically ill.
Eyes: EOMI, PERRLA, no scleral icterus.
Neck: supple.
CV: continues to remain tachy, reg rhythm, +S1/S2, no m/r/g.
Resp: remains CTAB, no rales, wheezes, or rhonchi.
Abd: +BS, soft, ND. Large ventral hernia that is soft, nontender to palpation, and with bowel sounds.
Skin: No rashes.
Neuro: CN 2-12 intact, non-focal.
Psych: Normal mood and affect.
CT A/P:
1. Moderate-sized paraesophageal hiatal hernia. Severe distention of the stomach and proximal duodenum with fluid and partially digested food material. Mild to moderate circumferential wall thickening throughout the proximal jejunal small bowel
loops. An acute gastroenteritis is a diagnostic possibility.
2. LARGE MIDLINE SUPRAUMBILICAL ANTERIOR ABDOMINAL WALL HERNIA containing a large loop of transverse colon and a small portion of the left lobe of the liver.
3. Mild intrahepatic and extrahepatic biliary dilatation which is likely secondary to previous cholecystectomy.
4. Severe diverticulosis in the descending and sigmoid colon.
5. Moderate-sized cystocele.
6. 4.0 cm benign-appearing cyst in the left side of the pelvis which is unchanged.
7. Small bilateral indirect inguinal hernias.
8. Severe discogenic degenerative disease and facet joint arthrosis in the lumbar spine.
Abd Xray 04/08/24: There is a nonobstructive bowel gas pattern. Moderate diffuse colonic stool burden. NG tube in stomach.
UGIS:
1. Delayed emptying of contrast material from the stomach into the duodenum which is moderately distended. Diagnostic possibilities are (1) gastroparesis or (2) superior mesenteric artery syndrome (a possibility given that a transition point
between distended and collapsed bowel loops appears to be located in the midline at the level of the 3rd portion of the duodenum).
2. Moderate-sized paraesophageal hiatal hernia.
3. No fluoroscopic evidence for distal small bowel obstruction.
4. Nasogastric tube in place terminating in the stomach.
5. Previous cholecystectomy.
6. Large midline anterior abdominal wall hernia.
Abdominal pain due to chronic ventral hernia:
-Patient complains of worsening abdominal pain with ventral hernia. CT scan is unchanged showing the large ventral hernia and hiatal hernia. She has worse reflux symptoms with some nausea. No vomiting. Has been having BMs. Intolerant of PO.
-PRN Pepcid/Maalox
-antiemetics and pain control
-surgery following. As per discussion with multiple surgeons at [facility] the patient currently is not a surgical candidate.
-appreciate GI. Linzess stopped, Amitiza started. Miralax started.
-pt pulled NGT overnight
-NPO (advance diet as per surgery's recs)
-cont D5 1/2 NS at 60 ml/hr
Chronic hypoxemic respiratory failure due to COPD:
-Not in acute exacerbation
-Continue NC 3L/min
-cont Spiriva/prednisone
-as per discussion with the patient she has end-stage COPD. Her charcoal unloader is at [facility], Dr. Deloris Escalera.
Essential HTN:
-cont nifedipine
-current BPs acceptable
FULL/Lovenox
Anticipated Discharge: 24 - 48 hours
Subjective/Interval History
-
Date of Service: April 10, 2024
Pt pulled NGT overnight. States she's had multiple BMs.
Objective Data
-
Labs:
Laboratory Results
04/10/24
06:35
Sodium 133 L
Potassium 3.7
Chloride 94 L
Carbon Dioxide 29
BUN 15
Creatinine 0.5 L
Glucose 120 H
Calcium 9.5
Vital Signs:
Vital Signs
Temp Pulse Resp BP Pulse Ox
97.7 F 137 24 146/92 97
04/10/24 07:40 04/10/24 08:47 04/10/24 07:58 04/10/24 08:47 04/10/24 07:58
I&O
04/09/24 04/10/24 04/11/24
06:59 06:59 06:59
Intake Total 950 / 950 810 / 810
Output Total 750 / 750 500 / 500
Balance 200 / 200 310 / 310
[2024-04-10] MEDS: MORPHINE SULFATE 2 MG IV ×2 (11:13→20:08)
--- NOTE | 2024-04-10 13:29 | W.PN.GS2 ---
Today's Communication / Plan
-
`
Assessment / Plan
-
Assessment: 69-year-old female with PMH of severe COPD (on home O2 2-5L), hypothyroid, HTN, HLD, breast cancer, and known ventral hernia and paraesophageal hernia (evaluated previously at [facility] and determined to not be a surgical candidate due to
severe COPD) who presents with abdominal pain associated with nausea and acid reflux, but having bowel function.
probable delayed gastric emptying/gastroparesis but not d/t PEH as there is no organoaxial volvulus and stomach not involved in ventral hernia. she reports symptoms started this time after having reportedly a lot of lindors chocolates
improved with NGT decompression.
Plan: full liquid diet and advance with gastroparesis precautions
medical management of chronic constipation and probable gastroparesis
Subjective Data
-
Date of Service: April 10, 2024
pt seen and examined
NGT outovernight
no nausea, hungry/thirsty and feels well
+fl and BMs
Objective Data
-
Intake and Output
04/09/24 04/10/24 04/11/24
06:59 06:59 06:59
Intake Total 950 / 950 810 / 810
Output Total 750 / 750 500 / 500
Balance 200 / 200 310 / 310
Intake:
Oral fluids 50 / 50
IV fluids (Total) 720 / 720 720 / 720
Amount instilled into GI Tube ( 180 / 180 90 / 90
Total)
[place] Sump 180 / 180 90 / 90
Output:
Gastrointestinal tube output ( 750 / 750 500 / 500
Total)
[place] Sump 750 / 750 500 / 500
Other:
Number of approximated MODERATE 3
amounts of urine
Number of unmeasured liquid
stools
Rectum 1 1
Vital Signs
Temp Pulse Resp BP Pulse Ox
97.7 F 137 24 146/92 97
04/10/24 07:40 04/10/24 08:47 04/10/24 07:58 04/10/24 08:47 04/10/24 07:58
Lab Results
04/07/24 11:34
04/10/24 06:35
Calcium 9.5 mg/dl (8.4-10.2) 04/10/24 06:35
Total Bilirubin 0.4 mg/dl (0.2-1.3) 04/05/24 20:43
AST 26 U/L (14-36) 04/05/24 20:43
ALT 18 U/L (0-35) 04/05/24 20:43
Alkaline Phosphatase 98 U/L (38-126) 04/05/24 20:43
Total Protein 7.0 g/dl (6.3-8.2) 04/05/24 20:43
Albumin 4.2 g/dl (3.5-5.0) 04/05/24 20:43
Physical Exam
-
NAD AAOx3
ABD: soft, ND, large ventral hernia-soft, partially reducible did not attempt to fully reduce
[2024-04-10] MEDS: REGLAN 10 MG IV ×2 (14:25→21:54)
[2024-04-10 15:10] VITALS: BP 144/95
--- NOTE | 2024-04-10 15:39 | PTCARENOTE ---
Pt. advanced to full liquid diet for lunch. Patient had a couple bites and c/o of nausea. Pt. also having 4 episodes of loose stool. Reglan given per order. GI and Surgery made aware. Continue with full liquids for now.
--- NOTE | 2024-04-10 16:20 | W.PN.GI.CBS2 ---
Addendum entered and electronically signed by Zehra Calero DO 04/10/24 18:43:
Patient seen examined independently of [facility] [facility]. I agree with her note with my additions below
Patient is much improved from yesterday and is now having multiple soft bowel movements. Her ventral hernia is now soft. Her NG tube came out and she is tolerating a full liquid diet.
Reviewed her upper GI series. Overall, her symptoms are more likely related to overall dysmotility including gastroparesis and narcotic induced constipation.
She is on a significant bowel regimen at home including MiraLAX, Colace, senna and Linzess. We did add Amitiza to her regimen which appears to have helped. She is also getting some Reglan here
She wants to decrease the narcotic use is much as possible. She will follow-up [facility] which is where she normally gets her care
If doing well okay to advance diet in the morning then discharge
Original Note:
Today's Communication / Plan
-
Etiology with concern for obstructive process with known large hernia, narcotic induced , gastroparesis, constipation induced vs other
UGI as noted
symptoms now resolving and tolerating diet
cont full liquid diet if continued improvement consider advance in AM
multiple stools today
remains on Linzess 145mcg daily, Amitza 24mcg BID, Miralax daily and fleets enema but pt has not been taking
multiple PRN meds-- dulcolax with senna, lactulose, maalox, additional miralax
monitor BM's may need to taper down if continued loose stools- will stop enema
-Continue IV Pantoprazole
limit narcotics
Assessment / Plan
-
69-year-old female with PMH of COPD on 3L O2, chronic pain on narcotics at home, hypothyroid, HTN, HLD, large ventral hernia, UGIB secondary to severe esophagitis with circumferential ulceration and overlying clot 02/08/23, constipation, hx Breast
CA s/p CTX/XRT who presents to the ER with recurrent abdominal pain that is increased from her usual pain associated with nausea and vomiting. Asked to evaluate for possible gastroparesis. She has had 2 colonoscopies at [facility] over the past 10 years which have been okay by her report. She did have an endoscopy in January 2023 after coffee-ground emesis after intubation and was noted to have severe esophagitis. She did not follow-up for repeat endoscopy. She
usually follows up with [facility] though has been hesitant to do any further procedures given her severe COPD. The patient is on chronic Vicodin and sometimes oxycodone. She states that last she developed worse abdominal
pain than her usual chronic abdominal pain from her hernia. Imaging on admission with moderate paraesophageal hernia with severe distention of stomach and duodenum with fluid and food with wall thickening in proximal jejunum. large abdominal wall
hernia with loop of transverse colon and portion of liver. duct dilation with prior hugo. moderate cystocele.
04/09/24 UGI
1. Delayed emptying of contrast material from the stomach into the duodenum which is moderately distended. Diagnostic possibilities are (1) gastroparesis or (2) superior mesenteric artery syndrome (a possibility given that a transition point
between distended and collapsed bowel loops appears to be located in the midline at the level of the 3rd portion of the duodenum).
2. Moderate-sized paraesophageal hiatal hernia.
3. No fluoroscopic evidence for distal small bowel obstruction.
4. Nasogastric tube in place terminating in the stomach.
5. Previous cholecystectomy.
6. Large midline anterior abdominal wall hernia.
Impression:
Abdominal pain
nausea/vomiting feculent material- improved
Large ventral hernia
leukocytosis
tachycardia
Constipation
Moderate paraesophageal hernia with distention of stomach/duodenum with food and fluid
delayed emptying of contrast-- gastroparesis /SMA from stomach to duodenum with distention
other med problems:
-COPD with chronic O2
chronic pain with chronic pain meds
-hypothyroidism
-HTN
-hyperlipidemia
-hx esophagitis with circumferential ulcers
-chronic constipation
breast CA with prior CXT/XRT
Plan:
Etiology with concern for obstructive process with known large hernia, narcotic induced , gastroparesis, constipation induced vs other
UGI as noted
symptoms now resolving and tolerating diet
cont full liquid diet if continued improvement consider advance in AM
multiple stools today
remains on Linzess 145mcg daily, Amitza 24mcg BID, Miralax daily and fleets enema but pt has not been taking
multiple PRN meds-- dulcolax with senna, lactulose, maalox, additional miralax
monitor BM's may need to taper down if continued loose stools- will stop enema
-Continue IV Pantoprazole
limit narcotics
Subjective
Subjective
Date of Service: April 10, 2024
04/10 brown stool, full liquid diet feeling much better
Objective
Data Reviewed
Laboratory Data:
Laboratory Results
04/07/24 11:34
04/10/24 06:35
Laboratory Results
Total Bilirubin 0.4 mg/dl (0.2-1.3) 04/05/24 20:43
AST 26 U/L (14-36) 04/05/24 20:43
ALT 18 U/L (0-35) 04/05/24 20:43
Alkaline Phosphatase 98 U/L (38-126) 04/05/24 20:43
Lipase 109 U/L (23-300) 04/05/24 20:43
Vital Signs and I&O:
Vital Signs
Temp Pulse Resp BP Pulse Ox
98.0 F 137 18 144/95 100
04/10/24 15:10 04/10/24 15:25 04/10/24 15:25 04/10/24 15:10 04/10/24 15:25
I&O
04/09/24 04/10/24 04/11/24
06:59 06:59 06:59
Intake Total 950 / 950 810 / 810
Output Total 750 / 750 500 / 500
Balance 200 / 200 310 / 310
Physical Exam
Physical Exam
HEENT: Anicteric and Moist mucous membranes
Cardiology: Other (persistent tachycardia)
Pulmonary: Other (course )
GI: Soft and Other (mid abdominal hernia soft with no palpable stool )
Extremities: No Edema
Neuro: Non Focal
[2024-04-10] MEDS: LOVENOX 40 MG SC (17:30)
[2024-04-10] MEDS: ZYRTEC 10 MG PO (17:30)
[2024-04-10] MEDS: CRESTOR 5 MG PO (21:55)
[2024-04-10 23:11] VITALS: BP 143/93
[2024-04-11] MEDS: D5/0.45%NACL 1000 IV (05:06)
[2024-04-11] MEDS: MORPHINE SULFATE 2 MG IV ×4 (05:07→20:45)
--- NOTE | 2024-04-11 07:17 | W.PN.HOSP.TC ---
Today's Communication/Plan
-
see bold
Assessment / Plan
Assessment / Plan
Gen: remains NAD, AAOx3, appears chronically ill.
Eyes: EOMI, PERRLA, no scleral icterus.
Neck: supple.
CV: tachy, reg rhythm, +S1/S2, no m/r/g.
Resp: CTAB, no rales, wheezes, or rhonchi.
Abd: +BS, soft, ND. Large ventral hernia that is soft, nontender to palpation, and with bowel sounds.
Skin: No rashes.
Neuro: CN 2-12 intact, non-focal.
Psych: remains Normal mood and affect.
CT A/P:
1. Moderate-sized paraesophageal hiatal hernia. Severe distention of the stomach and proximal duodenum with fluid and partially digested food material. Mild to moderate circumferential wall thickening throughout the proximal jejunal small bowel
loops. An acute gastroenteritis is a diagnostic possibility.
2. LARGE MIDLINE SUPRAUMBILICAL ANTERIOR ABDOMINAL WALL HERNIA containing a large loop of transverse colon and a small portion of the left lobe of the liver.
3. Mild intrahepatic and extrahepatic biliary dilatation which is likely secondary to previous cholecystectomy.
4. Severe diverticulosis in the descending and sigmoid colon.
5. Moderate-sized cystocele.
6. 4.0 cm benign-appearing cyst in the left side of the pelvis which is unchanged.
7. Small bilateral indirect inguinal hernias.
8. Severe discogenic degenerative disease and facet joint arthrosis in the lumbar spine.
Abd Xray 04/08/24: There is a nonobstructive bowel gas pattern. Moderate diffuse colonic stool burden. NG tube in stomach.
UGIS:
1. Delayed emptying of contrast material from the stomach into the duodenum which is moderately distended. Diagnostic possibilities are (1) gastroparesis or (2) superior mesenteric artery syndrome (a possibility given that a transition point
between distended and collapsed bowel loops appears to be located in the midline at the level of the 3rd portion of the duodenum).
2. Moderate-sized paraesophageal hiatal hernia.
3. No fluoroscopic evidence for distal small bowel obstruction.
4. Nasogastric tube in place terminating in the stomach.
5. Previous cholecystectomy.
6. Large midline anterior abdominal wall hernia.
Abdominal pain due to chronic ventral hernia:
-Patient complains of worsening abdominal pain with ventral hernia. CT scan is unchanged showing the large ventral hernia and hiatal hernia. She has worse reflux symptoms with some nausea. No vomiting. Has been having BMs. Intolerant of PO.
-PRN Pepcid/Maalox
-antiemetics and pain control
-surgery following. As per discussion with multiple surgeons at [facility] the patient currently is not a surgical candidate.
-appreciate GI. Linzess stopped, Amitiza started. Miralax started.
-pt pulled NGT overnight 04/09/24-04/10/24
-currently on clears
-stop IVFs
Chronic hypoxemic respiratory failure due to COPD:
-Not in acute exacerbation
-Continue NC 3L/min
-cont Spiriva/prednisone
-as per discussion with the patient she has end-stage COPD. Her cmm technician is at [facility], Dr. Deloris Escalera.
Essential HTN:
-cont nifedipine
-current BPs acceptable
FULL/Lovenox
Anticipated Discharge: 24 - 48 hours
Subjective/Interval History
-
Date of Service: April 11, 2024
Tolerating clears. Currently denies abdominal pain.
Objective Data
-
Labs:
Laboratory Results
04/11/24
06:34
Sodium Pending
Potassium Pending
Chloride Pending
Carbon Dioxide Pending
BUN Pending
Creatinine Pending
Glucose Pending
Calcium Pending
Vital Signs:
Vital Signs
Temp Pulse Resp BP Pulse Ox
98.1 F 122 18 143/93 99
04/10/24 23:11 04/10/24 23:11 04/10/24 23:11 04/10/24 23:11 04/10/24 23:11
I&O
04/10/24 04/11/24 04/12/24
06:59 06:59 06:59
Intake Total 810 / 810 2260 / 2260
Output Total 500 / 500
Balance 310 / 310 2260 / 2260
[2024-04-11 07:18] LABS: Blood Urea Nitrogen 8 mg/dl (7-17); Calcium 9.2 mg/dl (8.4-10.2); Carbon Dioxide 31 mmol/L (22-30); Chloride 97 mmol/L (98-107); Estimated Creatinine Clearance 69 ml/min; Glucose 129 mg/dl (70-99); Potassium 3.7 mmol/L (3.5-5.1); Sodium 135 mmol/L (135-145); eGFR > 60.00
[2024-04-11 07:40] VITALS: BP 153/89
[2024-04-11] MEDS: SPIRIVA RESPIMAT 2.5 MCG 1 PUFF INH (07:46)
[2024-04-11] MEDS: XOPENEX 0.63 MG INHALANT SOLUTION 0.630000000000000004 MG INH ×2 (07:50→15:22)
--- NOTE | 2024-04-11 08:33 | W.PN.GS2 ---
Today's Communication / Plan
-
-- No plans for surgical intervention, please call with questions or concerns
Assessment / Plan
-
Assessment: 69-year-old female with PMH of severe COPD (on home O2 2-5L), hypothyroid, HTN, HLD, breast cancer, and known ventral hernia and paraesophageal hernia (evaluated previously at [facility] and determined to not be a surgical candidate due to
severe COPD) who presents with abdominal pain associated with nausea and acid reflux, but having bowel function.
Probable delayed gastric emptying/gastroparesis but not d/t PEH as there is no organoaxial volvulus and stomach not involved in ventral hernia.
Improved with NGT decompression.
Plan:
-- Full liquid diet and advance with gastroparesis precautions
-- Medical management of chronic constipation and probable gastroparesis
-- No plans for surgical intervention, please call with questions or concerns
Subjective Data
-
Date of Service: April 11, 2024
Feels improved. No complaints. Denies nausea or vomiting.
Objective Data
-
Intake and Output
04/10/24 04/11/24 04/12/24
06:59 06:59 06:59
Intake Total 810 / 810 2260 / 2260
Output Total 500 / 500
Balance 310 / 310 2260 / 2260
Intake:
Oral fluids 820 / 820
IV fluids (Total) 720 / 720 1440 / 1440
Amount instilled into GI Tube ( 90 / 90
Total)
[place] Sump 90 / 90
Output:
Gastrointestinal tube output ( 500 / 500
Total)
[place] Sump 500 / 500
Other:
Number of approximated MODERATE 2
amounts of urine
Number of unmeasured liquid
stools
Rectum 1 3
Vital Signs
Temp Pulse Resp BP Pulse Ox
97.7 F 110 18 153/89 97
04/11/24 07:40 04/11/24 07:52 04/11/24 07:52 04/11/24 07:40 04/11/24 07:52
Lab Results
04/07/24 11:34
04/11/24 06:34
Calcium 9.2 mg/dl (8.4-10.2) 04/11/24 06:34
Total Bilirubin 0.4 mg/dl (0.2-1.3) 04/05/24 20:43
AST 26 U/L (14-36) 04/05/24 20:43
ALT 18 U/L (0-35) 04/05/24 20:43
Alkaline Phosphatase 98 U/L (38-126) 04/05/24 20:43
Total Protein 7.0 g/dl (6.3-8.2) 04/05/24 20:43
Albumin 4.2 g/dl (3.5-5.0) 04/05/24 20:43
Physical Exam
-
Gen: NAD
Abd: soft, NT, improved distension, hernia soft and reducible, non-peritoneal
[2024-04-11] MEDS: NSS (PRESERVATIVE FREE) 0.5 ML IV ×2 (09:28→17:37)
[2024-04-11] MEDS: ATIVAN 1 MG IV ×2 (09:28→17:37)
[2024-04-11] MEDS: MIRALAX 17 GRAMS TUBE (09:29)
[2024-04-11] MEDS: AMITIZA 24 MCG PO ×2 (09:29→20:40)
[2024-04-11] MEDS: LINZESS 145 MCG PO (09:29)
[2024-04-11] MEDS: NSS (PRESERVATIVE FREE) 10 ML IV (09:30)
[2024-04-11] MEDS: DELTASONE 5 MG PO ×2 (09:30→20:40)
[2024-04-11] MEDS: WELLBUTRIN XL (24 hour extended release) 300 MG PO (09:30)
[2024-04-11] MEDS: PROTONIX IV 40 MG IV (09:30)
[2024-04-11] MEDS: PROCARDIA XL (EXTENDED RELEASE) 30 MG PO (09:31)
[2024-04-11] MEDS: REGLAN 10 MG IV ×2 (11:14→17:46)
[2024-04-11] MEDS: ZOFRAN 4 MG IV (15:03)
--- NOTE | 2024-04-11 15:05 | W.PN.GI.CBS2 ---
Addendum entered and electronically signed by Oscar Salmon MD 04/11/24 18:02:
I saw and examined the patient.
The DISTANCE EDUCATION COORDINATOR's note was reviewed and I agree with the note.
Tolerated diet. Complains of diarrhea now
will d/c MiraLAX. Continue Linzess/Amitiza for now. Adjust laxatives as needed with bowel movement in the future
Advance to low residual diet
Minimize narcotics
PPI p.o.
If tolerating diet okay to D/C home from GI standpoint.
Follow-up with GI at [facility]. Will sign off
Original Note:
Today's Communication / Plan
-
Etiology with concern for obstructive process with known large hernia, narcotic induced , gastroparesis, constipation induced vs other
UGI as noted
improved with still with diarrhea
will slowly back down on bowel regiment-- stop miralax cont linzess and Amitza for now
advance to low residue diet
multiple PRN meds-- dulcolax with senna, lactulose, maalox, additional miralax
transition to PPI daily PO
limit narcotics
Assessment / Plan
-
69-year-old female with PMH of COPD on 3L O2, chronic pain on narcotics at home, hypothyroid, HTN, HLD, large ventral hernia, UGIB secondary to severe esophagitis with circumferential ulceration and overlying clot 02/08/23, constipation, hx Breast
CA s/p CTX/XRT who presents to the ER with recurrent abdominal pain that is increased from her usual pain associated with nausea and vomiting. Asked to evaluate for possible gastroparesis. She has had 2 colonoscopies at the [facility]
[place] over the past 10 years which have been okay by her report. She did have an endoscopy in January 2023 after coffee-ground emesis after intubation and was noted to have severe esophagitis. She did not follow-up for repeat endoscopy. She
usually follows up with [facility] though has been hesitant to do any further procedures given her severe COPD. The patient is on chronic Vicodin and sometimes oxycodone. She states that last she developed worse abdominal
pain than her usual chronic abdominal pain from her hernia. Imaging on admission with moderate paraesophageal hernia with severe distention of stomach and duodenum with fluid and food with wall thickening in proximal jejunum. large abdominal wall
hernia with loop of transverse colon and portion of liver. duct dilation with prior hugo. moderate cystocele.
04/09/24 UGI
1. Delayed emptying of contrast material from the stomach into the duodenum which is moderately distended. Diagnostic possibilities are (1) gastroparesis or (2) superior mesenteric artery syndrome (a possibility given that a transition point
between distended and collapsed bowel loops appears to be located in the midline at the level of the 3rd portion of the duodenum).
2. Moderate-sized paraesophageal hiatal hernia.
3. No fluoroscopic evidence for distal small bowel obstruction.
4. Nasogastric tube in place terminating in the stomach.
5. Previous cholecystectomy.
6. Large midline anterior abdominal wall hernia.
Impression:
Abdominal pain
nausea/vomiting feculent material- improved
Large ventral hernia
leukocytosis
tachycardia
Constipation
Moderate paraesophageal hernia with distention of stomach/duodenum with food and fluid
delayed emptying of contrast-- gastroparesis /SMA from stomach to duodenum with distention
other med problems:
-COPD with chronic O2
chronic pain with chronic pain meds
-hypothyroidism
-HTN
-hyperlipidemia
-hx esophagitis with circumferential ulcers
-chronic constipation
breast CA with prior CXT/XRT
Plan:
Etiology with concern for obstructive process with known large hernia, narcotic induced , gastroparesis, constipation induced vs other
UGI as noted
improved with still with diarrhea
will slowly back down on bowel regiment-- stop miralax cont linzess and Amitza for now
advance to low residue diet
multiple PRN meds-- dulcolax with senna, lactulose, maalox, additional miralax
transition to PPI daily PO
limit narcotics
Subjective
Subjective
Date of Service: April 11, 2024
still with diarrhea tolerating diet -- full liquids
Objective
Data Reviewed
Laboratory Data:
Laboratory Results
04/07/24 11:34
04/11/24 06:34
Laboratory Results
Total Bilirubin 0.4 mg/dl (0.2-1.3) 04/05/24 20:43
AST 26 U/L (14-36) 04/05/24 20:43
ALT 18 U/L (0-35) 04/05/24 20:43
Alkaline Phosphatase 98 U/L (38-126) 04/05/24 20:43
Lipase 109 U/L (23-300) 04/05/24 20:43
Vital Signs and I&O:
Vital Signs
Temp Pulse Resp BP Pulse Ox
97.7 F 110 18 153/89 97
04/11/24 07:40 04/11/24 09:31 04/11/24 07:52 04/11/24 09:31 04/11/24 07:52
I&O
04/10/24 04/11/24 04/12/24
06:59 06:59 06:59
Intake Total 810 / 810 2260 / 2260
Output Total 500 / 500
Balance 310 / 310 2260 / 2260
Physical Exam
Physical Exam
HEENT: Anicteric and Moist mucous membranes
Cardiology: Normal Sinus Rhythm
Pulmonary: Clear
GI: Soft and Distended (with soft midline hernia )
Extremities: No Edema
Neuro: Non Focal
[2024-04-11 15:57] VITALS: BP 143/97
--- NOTE | 2024-04-11 16:18 | CM ---
met with patient at bedside.she is on full liquids-felt nauseated,given reglan,on 3.5 liters nc o2.,having loose stools.still no plan for surgical intervention.plan home with VN when stable.
[2024-04-11] MEDS: ZYRTEC 10 MG PO (17:38)
[2024-04-11] MEDS: LOVENOX 40 MG SC (17:38)
[2024-04-11] MEDS: AMBIEN 5 MG PO (20:46)
[2024-04-11] MEDS: CRESTOR 5 MG PO (23:03)
[2024-04-11 23:32] VITALS: BP 125/77
[2024-04-12] MEDS: ATIVAN 1 MG IV ×3 (01:11→14:50)
[2024-04-12] MEDS: NSS (PRESERVATIVE FREE) 0.5 ML IV ×2 (01:11→14:50)
[2024-04-12] MEDS: MORPHINE SULFATE 2 MG IV ×2 (06:03→13:38)
[2024-04-12 07:35] VITALS: BP 132/92
[2024-04-12 07:45] VITALS: BP 132/92
[2024-04-12 07:46] LABS: Blood Urea Nitrogen 7 mg/dl (7-17); Calcium 9.3 mg/dl (8.4-10.2); Carbon Dioxide 32 mmol/L (22-30); Chloride 98 mmol/L (98-107); Estimated Creatinine Clearance 69 ml/min; Glucose 113 mg/dl (70-99); Potassium 3.9 mmol/L (3.5-5.1); Sodium 135 mmol/L (135-145); eGFR > 60.00
[2024-04-12] MEDS: PROCARDIA XL (EXTENDED RELEASE) 30 MG PO (08:06)
[2024-04-12] MEDS: DELTASONE 5 MG PO (08:06)
[2024-04-12] MEDS: WELLBUTRIN XL (24 hour extended release) 300 MG PO (08:06)
[2024-04-12] MEDS: PROTONIX 40 MG PO (08:06)
[2024-04-12] MEDS: AMITIZA 24 MCG PO (08:07)
[2024-04-12] MEDS: ZOFRAN 4 MG IV (08:08)
--- NOTE | 2024-04-12 08:10 | W.PN.HOSP.TC ---
Today's Communication/Plan
-
see bold
Assessment / Plan
Assessment / Plan
Gen: continues to remain NAD, AAOx3, appears chronically ill.
Eyes: EOMI, PERRLA, no scleral icterus.
Neck: supple.
CV: remains tachy, reg rhythm, +S1/S2, no m/r/g.
Resp: CTAB, no rales, wheezes, or rhonchi.
Abd: +BS, soft, ND. Large ventral hernia that is soft, nontender to palpation, and with bowel sounds.
Skin: No rashes.
Neuro: CN 2-12 intact, non-focal.
Psych: continues to remain Normal mood and affect.
CT A/P:
1. Moderate-sized paraesophageal hiatal hernia. Severe distention of the stomach and proximal duodenum with fluid and partially digested food material. Mild to moderate circumferential wall thickening throughout the proximal jejunal small bowel
loops. An acute gastroenteritis is a diagnostic possibility.
2. LARGE MIDLINE SUPRAUMBILICAL ANTERIOR ABDOMINAL WALL HERNIA containing a large loop of transverse colon and a small portion of the left lobe of the liver.
3. Mild intrahepatic and extrahepatic biliary dilatation which is likely secondary to previous cholecystectomy.
4. Severe diverticulosis in the descending and sigmoid colon.
5. Moderate-sized cystocele.
6. 4.0 cm benign-appearing cyst in the left side of the pelvis which is unchanged.
7. Small bilateral indirect inguinal hernias.
8. Severe discogenic degenerative disease and facet joint arthrosis in the lumbar spine.
Abd Xray 04/08/24: There is a nonobstructive bowel gas pattern. Moderate diffuse colonic stool burden. NG tube in stomach.
UGIS:
1. Delayed emptying of contrast material from the stomach into the duodenum which is moderately distended. Diagnostic possibilities are (1) gastroparesis or (2) superior mesenteric artery syndrome (a possibility given that a transition point
between distended and collapsed bowel loops appears to be located in the midline at the level of the 3rd portion of the duodenum).
2. Moderate-sized paraesophageal hiatal hernia.
3. No fluoroscopic evidence for distal small bowel obstruction.
4. Nasogastric tube in place terminating in the stomach.
5. Previous cholecystectomy.
6. Large midline anterior abdominal wall hernia.
Abdominal pain due to chronic ventral hernia:
-Patient complains of worsening abdominal pain with ventral hernia. CT scan is unchanged showing the large ventral hernia and hiatal hernia. She has worse reflux symptoms with some nausea. No vomiting. Has been having BMs. Intolerant of PO.
-PRN Pepcid/Maalox
-antiemetics and pain control
-surgery following. As per discussion with multiple surgeons at [facility] the patient currently is not a surgical candidate.
-appreciate GI. Linzess stopped, Amitiza started. Miralax started.
-pt pulled NGT overnight 04/09/24-04/10/24
-s/p IVFs
-advanced to low residue diet
Chronic hypoxemic respiratory failure due to COPD:
-Not in acute exacerbation
-Continue NC 3L/min
-cont Spiriva/prednisone
-as per discussion with the patient she has end-stage COPD. Her wool fleece grader is at [facility], Dr. Deloris Escalera.
Essential HTN:
-cont nifedipine
FULL/Lovenox
Total time spent on d/c = 31 min. This included today's physical exam, progress note, review of laboratory and diagnostic data, preparation of discharge documents and prescriptions, and discussions about the pt's hospital course and discharge plan
with the patient and other medical biller/coder involved in the patient's care.
Anticipated Discharge: Today
Subjective/Interval History
-
Date of Service: April 12, 2024
Pt tolerating LR diet.
Objective Data
-
Labs:
Laboratory Results
04/12/24
07:16
Sodium 135
Potassium 3.9
Chloride 98
Carbon Dioxide 32 H
BUN 7
Creatinine 0.5 L
Glucose 113 H
Calcium 9.3
Vital Signs:
Vital Signs
Temp Pulse Resp BP Pulse Ox
98.0 F 109 18 132/92 98
04/12/24 07:35 04/12/24 08:06 04/12/24 07:35 04/12/24 08:06 04/12/24 07:35
I&O
04/11/24 04/12/24 04/13/24
06:59 06:59 06:59
Intake Total 2260 / 2260 1020 / 1020
Balance 2260 / 2260 1020 / 1020
[2024-04-12] MEDS: LINZESS PO (08:17)
[2024-04-12] MEDS: SPIRIVA RESPIMAT 2.5 MCG 1 PUFF INH (08:32)
[2024-04-12 08:35] VITALS: BP 132/92
--- NOTE | 2024-04-12 10:53 | CM ---
Reviewed the chart notes and spoke with the patient at the bedside. IMM reviewed and placed on chart. The patient is being discharged to her daughter's home in [place]. CM continues to be available to patient/family and is monitoring medical
plan for needs at discharge.
Plan: Discharge to daughter's home on [facility] service.
--- NOTE | 2024-04-12 13:09 | W.DCSUMMARY ---
Discharge Summary
Discharge Data
Date of Admission: 04/07/24
Date of Discharge: 04/12/24
-
Pending Results: No
Hospital Course
Primary diagnoses:
Abdominal pain due to chronic ventral hernia as well as likely gastroparesis
Secondary diagnoses:
Chronic hypoxemic respiratory failure due to advanced chronic obstructive pulmonary disease
Essential HTN
Hypothyroidism
Hyperlipidemia
h/o breast cancer
Consultants:
General surgery
Gastroenterology
Imaging:
CT A/P:
1. Moderate-sized paraesophageal hiatal hernia. Severe distention of the stomach and proximal duodenum with fluid and partially digested food material. Mild to moderate circumferential wall thickening throughout the proximal jejunal small bowel
loops. An acute gastroenteritis is a diagnostic possibility.
2. LARGE MIDLINE SUPRAUMBILICAL ANTERIOR ABDOMINAL WALL HERNIA containing a large loop of transverse colon and a small portion of the left lobe of the liver.
3. Mild intrahepatic and extrahepatic biliary dilatation which is likely secondary to previous cholecystectomy.
4. Severe diverticulosis in the descending and sigmoid colon.
5. Moderate-sized cystocele.
6. 4.0 cm benign-appearing cyst in the left side of the pelvis which is unchanged.
7. Small bilateral indirect inguinal hernias.
8. Severe discogenic degenerative disease and facet joint arthrosis in the lumbar spine.
Abd Xray 04/08/24: There is a nonobstructive bowel gas pattern. Moderate diffuse colonic stool burden. NG tube in stomach.
UGIS:
1. Delayed emptying of contrast material from the stomach into the duodenum which is moderately distended. Diagnostic possibilities are (1) gastroparesis or (2) superior mesenteric artery syndrome (a possibility given that a transition point
between distended and collapsed bowel loops appears to be located in the midline at the level of the 3rd portion of the duodenum).
2. Moderate-sized paraesophageal hiatal hernia.
3. No fluoroscopic evidence for distal small bowel obstruction.
4. Nasogastric tube in place terminating in the stomach.
5. Previous cholecystectomy.
6. Large midline anterior abdominal wall hernia.
Hospital course: 69-year-old female presented with chief complaints of abdominal pain and distention as outlined in the H&P done on admission. The patient was complaining of worsening abdominal pain related to her ventral hernia. CT scan wass
unchanged showing the large ventral hernia and hiatal hernia. She had worse reflux symptoms with some nausea. She was not having vomiting and was having bowel movements. She was intolerant of food by mouth. She had an NG tube placed and upper GI
tract was decompressed. She was supported with IV fluids, antiemetics, pain control. Intolerant of PO. As per discussion with multiple surgeons at [facility] the patient currently is not a surgical candidate. Patient was seen by GI.
Amitiza was added to her Linzess. She was placed on MiraLAX. The patient pulled her NGT overnight 04/09/24-04/10/24. Her diet was advanced to low residue diet which she was tolerating at the time of discharge.
Discharge Plan
-
Patient Disposition: Home (Routine Discharge)
Discharge Diagnosis/Procedures: Abdominal pain due to chronic ventral hernia and possibly gastroparesis
Condition: Good
Diet: Low Residue
Activity: As tolerated
Driving Restrictions: As prior to admission
Activity Restrictions/Additional Instructions:
Continue to follow-up with the surgery at [facility] as soon as able
Referrals:
UNKNOWN - PT DOES,NOT KNOW [Family Provider] - in less than 1 week
Prescriptions:
New
lubiprostone 24 mcg Capsule
24 mcg PO BID Qty: 60 0RF
Continued
multivitamin with folic acid [Tab-A-Charles] 1 TABLET tablet
1 tab PO DAILY
tiotropium bromide [Spiriva with HandiHaler] 18 mcg Capsule, W/Inhalation Device
1 cap INHALATION R DAILY
Corlanor 5 mg Tablet
5 mg PO BID
Linzess 145 mcg Capsule
145 mcg PO DAILY
Trintellix 20 mg Tablet
20 mg PO DAILY
fluticasone propion-salmeterol [Advair Diskus] 250-50 mcg/dose blister with device
1 inh INHALATION R BID
ondansetron HCl 8 mg tablet
8 mg PO BID
rosuvastatin 5 mg tablet
5 mg PO HS
bupropion HCl 300 mg tablet extended release 24 hr
300 mg PO DAILY
levocetirizine 5 mg tablet
5 mg PO QPM
dexlansoprazole 60 mg capsule,biphase delayed releas
60 mg PO DAILY
nifedipine 30 mg tablet extended release
30 mg PO DAILY Qty: 30 0RF
prednisone 5 mg tablet
10 mg PO DAILY
sennosides [senna] 8.6 mg Tablet
17.2 mg PO HS
lactulose 10 gram/15 mL (15 mL) Solution
10 g PO DAILYPRN PRN (Reason: CONSTIPATION)
levalbuterol HCl 0.63 mg/3 mL Solution For Nebulization
0.63 mg inhalation R Q6HPRN PRN (Reason: SOB or wheezing) Qty: 72 0RF
polyethylene glycol 3350 [Miralax] 17 gram powder in packet
17 g PO DAILYPRN PRN (Reason: constipation)
alprazolam 2 mg tablet
2 mg PO QIDPRN PRN (Reason: anxiety)
docusate sodium 100 mg Capsule
100 mg PO BID Qty: 0 0RF
Discontinued
zolpidem [Ambien CR] 6.25 mg Tablet,Ext Release Multiphase
6.25 mg PO HSPRN PRN (Reason: sleep)
hydrocodone-acetaminophen 7.5-325 mg Tablet
1 tab PO Q8HPRN PRN (Reason: moderate pain) Qty: 7 0RF
Discharge Orders:
Discharge Patient (As Directed); Ordered 04/12/24
Ordered By: Herbert Mcrae
Discharge Date and Time
Print Language: SINHALA
[2024-04-12] MEDS: REGLAN 10 MG IV (13:47)
== END 2024-04-12 15:41 | disposition home or self-care (01) | DRG 394 ==
LOC: 2 NORTH 11:19
PROVIDERS: Physician Assistant Medical; Radiology Diagnostic Radiology; ADMITTING PHYSICIAN Internal Medicine; ATTENDING PHYSICIAN Internal Medicine; CONSULT PHYSICIAN Internal Medicine; EMERGENCY PHYSICIAN Emergency Medicine; OTHER PHYSICIAN Surgery
PROC: 0D9770Z Drainage of Stomach, Pylorus with Drainage Device, Via Natural or Artificial Opening (ICD-10-PCS; 2024-04-06)
DX: K43.6 Other and unspecified ventral hernia with obstruction, without gangrene (principal); E44.0 Moderate protein-calorie malnutrition; J96.11 Chronic respiratory failure with hypoxia; J96.12 Chronic respiratory failure with hypercapnia; Z68.1 Body mass index [BMI] 19.9 or less, adult; K31.84 Gastroparesis; E11.43 Type 2 diabetes mellitus with diabetic autonomic (poly)neuropathy; K59.03 Drug induced constipation; T40.2X5A Adverse effect of other opioids, initial encounter; Y92.9 Unspecified place or not applicable; K30 Functional dyspepsia; J44.9 Chronic obstructive pulmonary disease, unspecified; G89.29 Other chronic pain; K52.9 Noninfective gastroenteritis and colitis, unspecified; E03.9 Hypothyroidism, unspecified; E78.00 Pure hypercholesterolemia, unspecified; I10 Essential (primary) hypertension; F32.A Depression, unspecified; F41.9 Anxiety disorder, unspecified; K57.30 Diverticulosis of large intestine without perforation or abscess without bleeding; K40.20 Bilateral inguinal hernia, without obstruction or gangrene, not specified as recurrent; M47.816 Spondylosis without myelopathy or radiculopathy, lumbar region; K59.00 Constipation, unspecified; K31.89 Other diseases of stomach and duodenum; N99.3 Prolapse of vaginal vault after hysterectomy; K21.9 Gastro-esophageal reflux disease without esophagitis; K44.9 Diaphragmatic hernia without obstruction or gangrene; Z90.49 Acquired absence of other specified parts of digestive tract; Z79.51 Long term (current) use of inhaled steroids; Z79.52 Long term (current) use of systemic steroids; Z87.891 Personal history of nicotine dependence; Z85.3 Personal history of malignant neoplasm of breast; Z88.6 Allergy status to analgesic agent; Z91.041 Radiographic dye allergy status; Z91.013 Allergy to seafood; Z99.81 Dependence on supplemental oxygen
CPT/HCPCS: 74018; 74177; 74240; 80048; 80053; 83605; 83690; 85025; 85027; 87070; 93005; 94640; 96374; 96375; 99285; Q9967

== ENCOUNTER 2024-05-04 15:54 | Emergency (ER) | payer MEDICARE, SELFPAY ==
[2024-05-04 16:04] VITALS: BMI 18.3
--- NOTE | 2024-05-04 16:31 | ED.GENMED ---
History of Present Illness
General
Chief Complaint: Chest Pain
Source: family (daughter)
Exam Limitations: none
Time Seen by Provider: 05/04/24 16:02
Nursing documentation reviewed up to this point in time: agreed with
History of Present Illness
History of Present Illness:
Patient to ED for eval of increased lethargy, SOB. Daughter states patient has been sleeping most of day. SHe has concerns that she is taking too many narcotics. Brought to ED via EMS. Pulse ox 98% on 3LNC. Denies fever/chills, recent illness.
Past History
Past History
ED Past Medical History: Asthma, Cancer (Remote history of breast cancer), COPD, NIDDM and Other (Chronic abdominal wall hernia, chronic abdominal pain, upper GI bleed January 2023, Chronic cough, Ulcers)
ED Past Surgical History: Cholecystectomy, Gynecological (Hysterectomy) and Other (left Lumpectomy)
Patient has exhibited threatening behavior?: No
PSI?: No
Social History
Tobacco: Former smoker
Alcohol: Occasional
Drug: None
Personal:
Living: with family
Employment: Retired
Family History
Family History: Other and Unable to obtain
Review of Systems
Review of Systems
Allergies reviewed?: Yes
All Other Systems: ROS reviewed and negative except as documented in HPI and ROS
Constitutional: Reports fatigue
EENT: Reports no symptoms
Respiratory: Reports trouble breathing
Cardiac: Reports no symptoms
ABD/GI: Reports no symptoms
: Reports no symptoms
Musculoskeletal: Reports no symptoms
Skin: Reports no symptoms
Neurological: Reports weakness
Psychiatric: Reports no symptoms
Phy Exam
General Physical Exam
General Presentation: well appearing and no apparent distress
General age: appears stated age
General Skin: warm and dry
General Habitus: normal
General Mental: alert
General Hydration: appears well hydrated
Cardiovascular Exam
Cardiovascular Exam: regular rate/rhythm
Pulmonary Exam
Pulmonary Exam: lungs clear and no respiratory distress
Gastrointestinal Exam
Gastrointestinal Exam: normal bowel sounds, non tender and soft
Musculoskeletal Exam
Musculoskeletal Exam: full ROM and neuro vasc intact
Skin Exam
Skin Exam: normal color, warm/dry and no rash
Psychiatric Exam
Psychiatric Exam: normal mood/affect
Scores
Heart Score for Chest Pain Patients
STEMI patient?: Not applicable
Course
Orders/Labs/Results
Orders:
Orders
05/04/24 15:55
Electrocardiogram (*1) Urgent
Reason for Study: Shortness of Breath
EKG- Treatment ONCE
05/04/24 16:23
CR Chest - 2 Views Urgent
Comment:
Reason For Exam: SOB
05/04/24 16:35
Complete Blood Count/With Diff Urgent
Comprehensive Metabolic Panel Urgent
NT-proBNP Urgent
Troponin I Urgent
05/04/24 16:57
0.9% Sodium Chloride 500 ml [Nss] 500 ml IV BOLUS
05/04/24 17:02
Lactic Acid Urgent
Blood Culture Urgent
JUANA Source: Blood/Venous
Specimen Description:
05/04/24 17:38
Urinalysis Reflex To Culture Urgent
Date Specimen was Collected: 05/04/24
Time Specimen was Collected: 17:36
Comment: Clean Catch Specimen
Urine Microscopic Reflex Cult Urgent
Abnormal Lab Results
05/04/24 05/04/24
16:35 17:38
WBC 19.2 H 10^3/uL
(4.8-10.8)
RBC 3.76 L 10^6/uL
(4.20-5.40)
Hgb 10.7 L g/dL
(12.0-16.0)
Hct 35.1 L %
(37.0-47.0)
MCHC 30.5 L g/dL
(33.0-37.0)
Abs Immat Gran (auto) 0.2 H 10^3/uL
(0-0.05)
Absolute Neuts (auto) 14.4 H 10^3/uL
(1.4-6.5)
Absolute Monos (auto) 1.9 H 10^3/uL
(0.1-0.6)
Immature Gran % 0.8 H %
(0-0.5)
Lymphocytes % 13.6 L %
(20.5-51.1)
Monocytes % 9.6 H %
(1.7-9.3)
Chloride 86 L mmol/L
(98-107)
Carbon Dioxide 41 H mmol/L
(22-30)
Creatinine 0.5 L mg/dL
(0.6-1.0)
Glucose 132 H mg/dl
(70-99)
Urine Ketones 3+ A
(Negative)
Ur Occult Blood Reflex Trace A
(Negative)
Urine RBC 7-10 A /HPF
(0-2)
Urine Bacteria (Reflex) Few A
(Negative)
Urine Albumin (Reflex) 2+ A
(Neg - Trace)
05/04/24 16:35
05/04/24 16:35
Vital Signs
Initial and Last Documented VS:
Initial Vital Signs
Pulse Pulse Ox
134 84
05/04/24 15:55 05/04/24 15:55
Last Documented Vital Signs
Pulse Resp BP Pulse Ox
127 31 161/80 100
05/04/24 19:00 05/04/24 19:00 05/04/24 19:00 05/04/24 18:45
*Radiology
Radiology exam reviewed: radiology read reviewed
*Pulse Oximetry
Patient hypoxic: no
*Critical Care Note
Total Time (30-74mins, 75-104mins- exclusive of procedures): Not Applicable
Update Note
Update Note:
No concerning findings on exam today. No hypoxia in ED. CXR neg for pneumonia. Labs and xray results reviewed with patient and daughter. Will discharge home, close follow up with PCP.
ED Attending Note
-
Portions of this chart may have been created with voice recognition software.� Occasional wrong word or��sound alike� substitutions may have occurred due to the inherent limitations of voice recognition software.
Discharge Plan
Departure
Patient Disposition: Home (Routine Discharge)
Date of Disposition: 05/04/24
Time of Disposition: 19:01
Patient with high blood pressure during this ER visit?: No
Condition: Good
Covid-19: Not Applicable
Discharge Problem:
GEORGE (dyspnea on exertion)
Instructions: Chronic obstructive pulmonary disease (COPD), Shortness of Breath, Adult ED
Prescriptions:
No Action
multivitamin with folic acid [Tab-A-Charles] 1 TABLET tablet
1 tab PO DAILY
tiotropium bromide [Spiriva with HandiHaler] 18 mcg Capsule, W/Inhalation Device
1 cap INHALATION R DAILY
Corlanor 5 mg Tablet
5 mg PO BID
Linzess 145 mcg Capsule
145 mcg PO DAILY
Trintellix 20 mg Tablet
20 mg PO DAILY
fluticasone propion-salmeterol [Advair Diskus] 250-50 mcg/dose blister with device
1 inh INHALATION R BID
ondansetron HCl 8 mg tablet
8 mg PO BID
rosuvastatin 5 mg tablet
5 mg PO HS
bupropion HCl 300 mg tablet extended release 24 hr
300 mg PO DAILY
levocetirizine 5 mg tablet
5 mg PO QPM
dexlansoprazole 60 mg capsule,biphase delayed releas
60 mg PO DAILY
nifedipine 30 mg tablet extended release
30 mg PO DAILY Qty: 30 0RF
prednisone 5 mg tablet
10 mg PO DAILY
sennosides [senna] 8.6 mg Tablet
17.2 mg PO HS
lactulose 10 gram/15 mL (15 mL) Solution
10 g PO DAILYPRN PRN (Reason: CONSTIPATION)
levalbuterol HCl 0.63 mg/3 mL Solution For Nebulization
0.63 mg inhalation R Q6HPRN PRN (Reason: SOB or wheezing) Qty: 72 0RF
polyethylene glycol 3350 [Miralax] 17 gram powder in packet
17 g PO DAILYPRN PRN (Reason: constipation)
alprazolam 2 mg tablet
2 mg PO QIDPRN PRN (Reason: anxiety)
docusate sodium 100 mg Capsule
100 mg PO BID Qty: 0 0RF
lubiprostone 24 mcg Capsule
24 mcg PO BID Qty: 60 0RF
Referrals:
[facility] [Outside] (Physician referral line)
UNKNOWN - PT DOES,NOT KNOW [Family Provider] -
Interventions
Interventions:
*Risk Screen - Suicide Last Done: 05/04/24 16:04
*General Assessment Last Done: 05/04/24 16:05
*Neglect/Abuse Screening Last Done: 05/04/24 16:04
ED- Fall Risk Assessment Last Done: 05/04/24 16:08
*ED COVID-19 Vaccine History Last Done: 05/04/24 16:05
*Nursing Disposition Last Done: 05/04/24 19:24
ED- Cardiac Assessment Last Done: 05/04/24 16:08
Discharge Date and Time
Discharge Date/Time: 05/04/24 19:24
Print Language: [place]IZ[place]
[2024-05-04 16:42] LABS: % Basophils 0.4 % (0-2); % Eosinophils 0.8 % (0-6); % Immature Granulocytes 0.8 % (0-0.5); % Lymphocytes 13.6 % (20.5-51.1); % Monocytes 9.6 % (1.7-9.3); % Neutrophils 74.8 % (42.2-75.2); Absolute Basophils 0.1 10^3/uL (0-0.2); Absolute Eosinophils 0.2 10^3/uL (0-0.7); Absolute Immature Granulocytes 0.2 10^3/uL (0-0.05); Absolute Lymphocytes 2.6 10^3/uL (1.2-3.4); Absolute Monocytes 1.9 10^3/uL (0.1-0.6); Absolute Neutrophils 14.4 10^3/uL (1.4-6.5); Hematocrit 35.1 % (37.0-47.0); Hemoglobin 10.7 g/dL (12.0-16.0); Mean Corp Hgb Conc. 30.5 g/dL (33.0-37.0); Mean Corpuscular Hgb 28.5 pg (27.0-31.0); Mean Corpuscular Volume 93.4 fL (81.0-99.0); Mean Platelet Volume 9.1 fL (7.4-10.4); Nucleated Red Blood Cells % 0 %; Platelet Count 373 10^3/uL (130-400); Red Blood Cell Count 3.76 10^6/uL (4.20-5.40); Red Cell Dist. Width 13.2 % (11.5-14.5); White Blood Cell Count 19.2 10^3/uL (4.8-10.8)
[2024-05-04 16:55] LABS: ALT (SGPT) 17 U/L (0-35); AST (SGOT) 31 U/L (14-36); Albumin 4.2 g/dl (3.5-5.0); Alkaline Phosphatase 90 U/L (38-126); Blood Urea Nitrogen 12 mg/dl (7-17); Calcium 9.9 mg/dl (8.4-10.2); Chloride 86 mmol/L (98-107); Estimated Creatinine Clearance 67 ml/min; Glucose 132 mg/dl (70-99); Potassium 4.5 mmol/L (3.5-5.1); Sodium 136 mmol/L (135-145); Total Bilirubin 0.8 mg/dl (0.2-1.3); eGFR > 60.00
[2024-05-04 17:00] VITALS: BP 161/83
[2024-05-04] MEDS: NSS 500 IV (17:02)
[2024-05-04 17:06] LABS: Carbon Dioxide 41 mmol/L (22-30); NT-proBNP 126 pg/ml; Troponin I < 0.012 ng/ml
[2024-05-04 17:29] LABS: Lactic Acid 0.7 mmol/L (0.7-2.0)
[2024-05-04 17:43] LABS: Urine Albumin 2+ (Neg - Trace); Urine Bilirubin Negative (Negative); Urine Character Clear (Clear); Urine Color Yellow; Urine Glucose Negative (Negative); Urine Ketone 3+ (Negative); Urine Leukocyte Negative (Negative); Urine Nitrite Negative (Negative); Urine Occult Blood Trace (Negative); Urine Specific Gravity 1.015 (<1.030); Urine Urobilinogen Negative (Neg - 1+)
[2024-05-04 17:56] LABS: Urine Bacteria Few (Negative); Urine Squamous Cell 0-2 /LPF (Few)
[2024-05-04 18:00] VITALS: BP 166/83
[2024-05-04 19:00] VITALS: BP 161/80
== END 2024-05-04 19:24 | disposition home or self-care (01) ==
LOC: EMR 15:54
PROVIDERS: Nurse Practitioner; EMERGENCY PHYSICIAN Emergency Medicine
DX: R06.09 Other forms of dyspnea (principal); Z87.891 Personal history of nicotine dependence
CPT/HCPCS: 99285; 96360; 71046; 80053; 81003; 81015; 83605; 83880; 84484; 85025; 87040; 93005

== ENCOUNTER 2024-07-22 17:24 | Emergency (ER) | payer MEDICARE, SELFPAY ==
[2024-07-22 17:26] VITALS: BP 148/91
[2024-07-22 18:48] VITALS: BP 131/120
[2024-07-22 19:04] VITALS: BP 139/86
--- NOTE | 2024-07-22 19:17 | ED.GENMED ---
History of Present Illness
General
Chief Complaint: Breathing Problem
Source: patient and family
Time Seen by Provider: 07/22/24 19:03
History of Present Illness
History of Present Illness:
69-year-old female presents to the emergency room complaining of increasing shortness of breath over the past 5 days or so. Patient has a history of advanced COPD for which she is on chronic oxygen and takes 10 mg of prednisone a day. She is
followed by a sanitor at [place]. She explained her symptoms to the sanitor who recommended she come to the emergency room for evaluation. Patient originally went to a patient first location. They performed a chest x-ray but
unfortunately the patient does not have a disc with the image on it or a official reading. They were told it looked okay. The patient was ambulated and her pulse ox dropped with ambulation as well as her feeling more short of breath than what she
expected for that distance prompting them to refer her to the emergency room. Patient also states that she developed some chest discomfort when she becomes very short of breath. patient denies any fever. She has a chronic cough which is
unchanged. Patient was exposed to a family member who has 'bronchitis'.
Past History
Past History
ED Past Medical History: Asthma, Cancer (Remote history of breast cancer), COPD, NIDDM and Other (Chronic abdominal wall hernia, chronic abdominal pain, upper GI bleed January 2023, Chronic cough, Ulcers)
ED Past Surgical History: Cholecystectomy, Gynecological (Hysterectomy) and Other (left Lumpectomy)
Patient has exhibited threatening behavior?: No
PSI?: No
Social History
Tobacco: Former smoker
Alcohol: Occasional
Drug: None
Personal:
Living: with family
Employment: Retired
Family History
Family History: Other and Unable to obtain
Phy Exam
Physical Exam
Physical Exam:
General: Awake, Alert, Oriented X3. No acute distress, appears older than stated age and chronically ill with stigmata of COPD
Vitals: unremarkable
Head: Atraumatic
Eyes: Pupils equal, EOMI
Throat: Airway intact, no exudates
Neck: Trachea midline
Lungs: Decreased breath sounds bilaterally
Heart: Regular rate, no murmurs
Abd: Soft, Nontender, No pulsatile mass
Neuro: Grossly nonfocal
Skin: Warm, dry, no rash
Extremities: pulses equal b/l, no edema
Scores
Heart Failure Risk
Heart Failure Risk Score: Not Applicable
Course
Orders/Labs/Results
Orders:
Orders
07/22/24 19:15
Ipratropium/Albuterol Sulfate [Duoneb] 3 ml INH R NOW STA
07/22/24 19:16
CR Chest - 2 Views Urgent
Comment:
Reason For Exam: increasing shortness of breath, copd
07/22/24 19:42
Basic Metabolic Panel Urgent
COVID-19 Antigen Urgent
Source: Nasal Swab
Troponin I Urgent
07/22/24 20:46
Complete Blood Count/With Diff Urgent
07/22/24 21:00
Prednisone [Deltasone] 60 mg PO NOW STA
07/22/24 21:01
Doxycycline [Vibramycin] 100 mg PO NOW STA
Abnormal Lab Results
07/22/24 07/22/24
19:42 20:46
RBC 3.90 L 10^6/uL
(4.20-5.40)
Hgb 10.4 L g/dL
(12.0-16.0)
Hct 33.1 L %
(37.0-47.0)
MCH 26.7 L pg
(27.0-31.0)
MCHC 31.4 L g/dL
(33.0-37.0)
RDW 16.0 H %
(11.5-14.5)
Abs Immat Gran (auto) 0.1 H 10^3/uL
(0-0.05)
Absolute Neuts (auto) 6.8 H 10^3/uL
(1.4-6.5)
Absolute Monos (auto) 0.9 H 10^3/uL
(0.1-0.6)
Creatinine 0.5 L mg/dL
(0.6-1.0)
Glucose 116 H mg/dl
(70-99)
07/22/24 20:46
07/22/24 19:42
Vital Signs
Initial and Last Documented VS:
Initial Vital Signs
Temp Pulse Resp BP Pulse Ox
98.4 F 113 22 148/91 95
07/22/24 17:26 07/22/24 17:26 07/22/24 17:26 07/22/24 17:26 07/22/24 17:26
Last Documented Vital Signs
Temp Pulse Resp BP Pulse Ox
98.4 F 98 13 144/80 99
07/22/24 17:26 07/22/24 21:00 07/22/24 21:00 07/22/24 21:00 07/22/24 21:00
MDM/Problems Addressed
Differential Diagnosis Includes:
COPD exacerbation, pneumonia, bronchitis
MDM/Problems Addressed:
Chest x-ray is unremarkable. Patient pulse ox is being maintained on her normal oxygen amount. Chest x-ray shows no infiltrate. Labs are reassuring. Will start the patient on a increased dose of prednisone in a tapering schedule. Also cover
with doxycycline for potential acute bronchitis.
*Radiology
Radiology exam reviewed: preliminary read by ED provider (No infiltrate noted on my personal review of the patient's chest x-ray)
*Pulse Oximetry
Patient hypoxic: yes
*Critical Care Note
Total Time (30-74mins, 75-104mins- exclusive of procedures): Not Applicable
ED Attending Note
-
Portions of this chart may have been created with voice recognition software.� Occasional wrong word or��sound alike� substitutions may have occurred due to the inherent limitations of voice recognition software.
Discharge Plan
Departure
Patient Disposition: Home (Routine Discharge)
Date of Disposition: 07/22/24
Time of Disposition: 21:01
Patient with high blood pressure during this ER visit?: No
Condition: Fair
Discharge Problem:
Acute exacerbation of chronic obstructive pulmonary disease (COPD)
Instructions: COPD Exacerbation, Adult ED
Prescriptions:
New
prednisone 10 mg Tablet
See Rx Instructions .ROUTE .COMPLEX Qty: 30 0RF
Rx Instructions:
Take By Mouth:
40 mg daily x3 days, 30 mg daily x3 days,
20 mg daily x3 days, 10 mg daily x3 days.
doxycycline hyclate 100 mg capsule
100 mg PO BID 7 Days Qty: 14 0RF
No Action
multivitamin with folic acid [Tab-A-Charles] 1 TABLET tablet
1 tab PO DAILY
tiotropium bromide [Spiriva with HandiHaler] 18 mcg Capsule, W/Inhalation Device
1 cap INHALATION R DAILY
Corlanor 5 mg Tablet
5 mg PO BID
Linzess 145 mcg Capsule
145 mcg PO DAILY
Trintellix 20 mg Tablet
20 mg PO DAILY
fluticasone propion-salmeterol [Advair Diskus] 250-50 mcg/dose blister with device
1 inh INHALATION R BID
ondansetron HCl 8 mg tablet
8 mg PO BID
rosuvastatin 5 mg tablet
5 mg PO HS
bupropion HCl 300 mg tablet extended release 24 hr
300 mg PO DAILY
levocetirizine 5 mg tablet
5 mg PO QPM
dexlansoprazole 60 mg capsule,biphase delayed releas
60 mg PO DAILY
nifedipine 30 mg tablet extended release
30 mg PO DAILY Qty: 30 0RF
prednisone 5 mg tablet
10 mg PO DAILY
sennosides [senna] 8.6 mg Tablet
17.2 mg PO HS
lactulose 10 gram/15 mL (15 mL) Solution
10 g PO DAILYPRN PRN (Reason: CONSTIPATION)
levalbuterol HCl 0.63 mg/3 mL Solution For Nebulization
0.63 mg inhalation R Q6HPRN PRN (Reason: SOB or wheezing) Qty: 72 0RF
polyethylene glycol 3350 [Miralax] 17 gram powder in packet
17 g PO DAILYPRN PRN (Reason: constipation)
alprazolam 2 mg tablet
2 mg PO QIDPRN PRN (Reason: anxiety)
docusate sodium 100 mg Capsule
100 mg PO BID Qty: 0 0RF
lubiprostone 24 mcg Capsule
24 mcg PO BID Qty: 60 0RF
Referrals:
PRIVATE,PHYSICIAN [Family Provider] -
Activity Restrictions/Additional Instructions:
Go back to your normal dose of prednisone when you finish the taper. Follow up with your lung doctor. Return if you feel you are getting more short of breath.
Interventions
Interventions:
*Risk Screen - Suicide Last Done: 07/22/24 17:26
*General Assessment Last Done: 07/22/24 17:26
*Neglect/Abuse Screening Last Done: 07/22/24 17:26
ED- Fall Risk Assessment Last Done: 07/22/24 21:16
*ED COVID-19 Vaccine History Last Done: 07/22/24 17:26
*Nursing Disposition Last Done: 07/22/24 21:16
ED- Cardiac Assessment Last Done: 07/22/24 18:52
ED- Pulmonary Assessment Last Done: 07/22/24 18:52
Discharge Date and Time
Discharge Date/Time: 07/22/24 21:16
Print Language: [place]
[2024-07-22] MEDS: DUONEB 3 ML INH (19:31)
[2024-07-22 20:00] VITALS: BP 129/64
[2024-07-22 20:05] LABS: COVID-19 Antigen Negative (Negative)
[2024-07-22 20:14] LABS: Blood Urea Nitrogen 14 mg/dl (7-17); Carbon Dioxide 29 mmol/L (22-30); Chloride 98 mmol/L (98-107); Glucose 116 mg/dl (70-99); Potassium 4.2 mmol/L (3.5-5.1); Sodium 136 mmol/L (135-145); eGFR > 60.00
[2024-07-22 20:18] LABS: Troponin I < 0.012 ng/ml
[2024-07-22 20:55] LABS: % Basophils 0.4 % (0-2); % Eosinophils 0.4 % (0-6); % Immature Granulocytes 0.5 % (0-0.5); % Lymphocytes 26.8 % (20.5-51.1); % Monocytes 8.5 % (1.7-9.3); % Neutrophils 63.4 % (42.2-75.2); Absolute Immature Granulocytes 0.1 10^3/uL (0-0.05); Absolute Lymphocytes 2.9 10^3/uL (1.2-3.4); Absolute Monocytes 0.9 10^3/uL (0.1-0.6); Absolute Neutrophils 6.8 10^3/uL (1.4-6.5); Hematocrit 33.1 % (37.0-47.0); Hemoglobin 10.4 g/dL (12.0-16.0); Mean Corp Hgb Conc. 31.4 g/dL (33.0-37.0); Mean Corpuscular Hgb 26.7 pg (27.0-31.0); Mean Corpuscular Volume 84.9 fL (81.0-99.0); Mean Platelet Volume 8.9 fL (7.4-10.4); Nucleated Red Blood Cells % 0 %; Platelet Count 352 10^3/uL (130-400); White Blood Cell Count 10.7 10^3/uL (4.8-10.8)
[2024-07-22 21:00] VITALS: BP 144/80
[2024-07-22] MEDS: DELTASONE 60 MG PO (21:07)
[2024-07-22] MEDS: VIBRAMYCIN 100 MG PO (21:07)
== END 2024-07-22 21:16 | disposition home or self-care (01) ==
LOC: EMR 17:24
PROVIDERS: EMERGENCY PHYSICIAN Emergency Medicine
DX: J44.1 Chronic obstructive pulmonary disease with (acute) exacerbation (principal); E11.9 Type 2 diabetes mellitus without complications; Z85.3 Personal history of malignant neoplasm of breast; Z87.891 Personal history of nicotine dependence; Z99.81 Dependence on supplemental oxygen
CPT/HCPCS: 99283; 94640; 71046; 80048; 84484; 85025; 87811

== ENCOUNTER 2024-09-12 17:50 | Inpatient (IN) | payer MEDICARE, SELFPAY ==
[2024-09-12] VITALS (9 sets, daily range): BP systolic 117–172; BP diastolic 87–94; BMI 19.2
[2024-09-12 14:43] LABS: % Basophils 0.1 % (0-2); % Immature Granulocytes 0.6 % (0-0.5); % Monocytes 2.7 % (1.7-9.3); % Neutrophils 91.6 % (42.2-75.2); Absolute Immature Granulocytes 0.1 10^3/uL (0-0.05); Absolute Lymphocytes 0.8 10^3/uL (1.2-3.4); Absolute Monocytes 0.4 10^3/uL (0.1-0.6); Absolute Neutrophils 13.8 10^3/uL (1.4-6.5); Hematocrit 37.6 % (37.0-47.0); Mean Corp Hgb Conc. 31.9 g/dL (33.0-37.0); Mean Corpuscular Hgb 27.9 pg (27.0-31.0); Mean Corpuscular Volume 87.4 fL (81.0-99.0); Mean Platelet Volume 9.2 fL (7.4-10.4); Nucleated Red Blood Cells % 0 %; Platelet Count 517 10^3/uL (130-400); Red Cell Dist. Width 15.1 % (11.5-14.5)
[2024-09-12 14:51] LABS: ALT (SGPT) 19 U/L (0-35); AST (SGOT) 24 U/L (14-36); Albumin 4.6 g/dl (3.5-5.0); Alkaline Phosphatase 71 U/L (38-126); Blood Urea Nitrogen 16 mg/dl (7-17); Calcium 10.4 mg/dl (8.4-10.2); Carbon Dioxide 32 mmol/L (22-30); Chloride 92 mmol/L (98-107); Estimated Creatinine Clearance 57 ml/min; Glucose 163 mg/dl (70-99); Potassium 4.5 mmol/L (3.5-5.1); Sodium 136 mmol/L (135-145); Total Bilirubin 0.4 mg/dl (0.2-1.3); Total Protein 7.3 g/dl (6.3-8.2); eGFR > 60.00
[2024-09-12 15:01] LABS: Troponin I < 0.012 ng/ml
[2024-09-12 15:06] LABS: COVID-19 Antigen Negative (Negative)
--- NOTE | 2024-09-12 16:14 | ED.GENMED ---
History of Present Illness
General
Chief Complaint: Breathing Problem
Time Seen by Provider: 09/12/24 14:06
History of Present Illness
History of Present Illness:
69-year-old female presents to the emergency department for evaluation of shortness of breath and difficulty ambulating for the past 3 days. She has a history of quite brittle COPD and is on supplemental oxygen as a result, 4 L nasal cannula at
baseline. She contacted her primary care physician and was given a prescription for prednisone 50 mg which she has taken 3 doses of thus far. Notes is that her symptoms are worsening. No purulent sputum production or fevers. No leg swelling.
Denies any chest pain
Past History
Past History
ED Past Medical History: Asthma, Cancer (Remote history of breast cancer), COPD, NIDDM and Other (Chronic abdominal wall hernia, chronic abdominal pain, upper GI bleed January 2023, Chronic cough, Ulcers)
ED Past Surgical History: Cholecystectomy, Gynecological (Hysterectomy) and Other (left Lumpectomy)
Patient has exhibited threatening behavior?: No
PSI?: No
Social History
Tobacco: Former smoker
Alcohol: Occasional
Drug: None
Personal:
Living: with family
Employment: Retired
Family History
Family History: Other and Unable to obtain
Review of Systems
Review of Systems
Allergies reviewed?: Yes
All Other Systems: ROS reviewed and negative except as documented in HPI and ROS
Phy Exam
Physical Exam
Physical Exam:
GEN: Thin and frail, tachypneic, otherwise no distress
Eyes: PERRLA, EOMs intact, no scleral icterus
HENT: NCAT, oral mucosa moist, no JVD
Lungs: Tachypneic at rest, grossly diminished breath sounds with scant expiratory wheezes at the bases
Cardiac: RRR, no M/R/G, no peripheral edema. Radial pulses 2+ bilat
Abdomen: Soft, large umbilical hernia, easily reduced
Neuro: AO x 3
MSK: No gross deformity or ecchymosis. No edema. No digital clubbing
Skin: No rashes, petechiae. Normal color, no pallor or jaundice.
Psych: Calm, cooperative, proper hygiene
Scores
Heart Failure Risk
Heart Failure Risk Score: Not Applicable
Course
Orders/Labs/Results
Orders:
Orders
09/12/24 Lunch
Regular
At Your Request: Full Participation
Does patient need a safe tray?: No
09/12/24 13:26
Electrocardiogram (*1) Urgent
Reason for Study: Other
Other Reason for Exam: Respiratory Distress
Cardiac Monitoring- Treatment ONCE
EKG- Treatment ONCE
IV Insert/Care/Rem.- Treatment PRN
CR Chest - 2 Views Urgent
Comment:
Reason For Exam: respiratory distress
O2 Therapy [RESP] Urgent
Titrate/Wean O2 to maintain O2 sat greater than (%): 93
Special Instructions: TO MAINTAIN CONTINUOUS O2 SATS >/= 93%
Pulse Ox/cont/shift [RESP] Urgent
Quantity: 1
Special Instructions: continuous pulse ox
09/12/24 14:21
COVID-19 Antigen Urgent
Source: Nasal Swab
Complete Blood Count/With Diff Urgent
Comprehensive Metabolic Panel Urgent
Troponin I Urgent
Influenza A+B Rapid Molecular Urgent
JUANA Source: Nasal Swab
Specimen Description:
09/12/24 16:01
Ipratropium Nebs [Atrovent Nebules] 0.5 mg INH R NOW STA
Levalbuterol [Xopenex 1.25 mg Inhalant Solution] 1.25 mg INH R NOW STA
09/12/24 16:15
Alprazolam [Xanax] 1 mg PO NOW STA
09/12/24 16:17
Dexamethasone Sod Phosphate [Decadron] 6 mg IV NOW STA
09/12/24 17:00
Admit/Transfer Patient As Directed
Co-Sign Provider:
Level of Care: Inpatient admission
Assign to:: Telemetry
Physician / Group: Cazares/hospitalist
Diagnosis: Hypoxemia/COPD
Reason for Telemetry: Other
Other Reason for Telemetry: tachycardia
Date to Stop Telemetry: 09/14/24
Time to Stop Telemetry: 11:00
Reason for Hospitalization: Hypoxemia/COPD
Expected length of stay greater than two midnights?: Yes
ELOS- Estimated Length of Stay in days: 3
I certify the patient meets the requirements for IP care: Yes
PRN Pain Medication Management As Directed
May give lesser potent ordered pain med per pt: Yes
preference::
Protocol:: Medication orders for pain may be administered in a
manner that supports deferring to patient preference
when the pt is:
- Requesting an ordered lesser potent pain medication.
Least to most potent pain medications are defined
as: acetaminophen < NSAID < tramadol < opioids
(morphine, oxycodone, hydromorphone).
- Requesting a lesser dose of the same medication IF
ORDERED.
- Requesting a less intrusive route of administration
if both routes are prescribed by the provider (PO <
IV).
09/12/24 17:03
Code Status As Directed
Resuscitation Status: Full Code
09/12/24 18:42
Acetaminophen [Tylenol] 1,000 mg PO Q6HPRN PRN
Enoxaparin Sodium [Lovenox] 40 mg SC QPM
Hydrocodone 7.5/APAP 325 [[place] 7.5/325] 1 tablet PO BIDPRN PRN
Ipratropium/Albuterol Sulfate [Duoneb] 3 ml INH R Q4HPRN PRN
09/12/24 18:42
Activity As Directed
Activity Level: Out of Bed-Early Mobility
Intake/ Output As Directed
Frequency: Per unit guidelines
Vital Signs As Directed
Frequency: Per unit guidelines
Xopenex Reason for Use As Directed
Reason for ordering Xopenex instead of Albuterol: Tachycardia
Copd Education [RESP] Routine
DX Deep Vein Thrombosis Video Routine
09/12/24 19:12
Alprazolam [Xanax] 2 mg PO QIDPRN PRN
09/12/24 19:22
Cetirizine HCl [Zyrtec] 10 mg PO DAILYPRN PRN
09/12/24 20:00
Troponin I Q6H
Doxycycline [Vibramycin] 100 mg PO Q12
Ipratropium/Albuterol Sulfate [Duoneb] 3 ml INH R TID
Levalbuterol [Xopenex 1.25 mg Inhalant Solution] 1.25 mg INH R TID
ivabradine [Corlanor] See Dose Instructions PO BID
09/12/24 22:00
Docusate Sodium [Colace] 100 mg PO HS
Montelukast Sodium [Singulair] 10 mg PO HS
Rosuvastatin Calcium [Crestor] 5 mg PO HS
Sennosides [Senokot] 8.6 mg PO HS
09/13/24 06:00
Basic Metabolic Panel IN AM
Complete Blood Count/With Diff IN AM
09/13/24 08:00
Bupropion(24Hr)Extended Releas [WELLBUTRIN XL (24 hour extended release)] 300 mg PO DAILY
Dexamethasone Sod Phosphate [Decadron] 6 mg IV Q12H
Linaclotide [Linzess] 145 mcg PO DAILY
NIFEdipine EXTENDED RELEASE [Procardia Xl (Extended Release)] 30 mg PO DAILY
Pantoprazole [Protonix] 40 mg PO DAILY
vortioxetine [Trintellix] 20 mg PO DAILY
09/14/24 11:00
DC Protocol for Telemetry ONCE
Abnormal Lab Results
09/12/24
14:21
WBC 15.0 H 10^3/uL
(4.8-10.8)
MCHC 31.9 L g/dL
(33.0-37.0)
RDW 15.1 H %
(11.5-14.5)
Plt Count 517 H 10^3/uL
(130-400)
Abs Immat Gran (auto) 0.1 H 10^3/uL
(0-0.05)
Absolute Neuts (auto) 13.8 H 10^3/uL
(1.4-6.5)
Absolute Lymphs (auto) 0.8 L 10^3/uL
(1.2-3.4)
Immature Gran % 0.6 H %
(0-0.5)
Neutrophils % 91.6 H %
(42.2-75.2)
Lymphocytes % 5.0 L %
(20.5-51.1)
Chloride 92 L mmol/L
(98-107)
Carbon Dioxide 32 H mmol/L
(22-30)
Glucose 163 H mg/dl
(70-99)
Calcium 10.4 H mg/dl
(8.4-10.2)
09/12/24 14:21
09/12/24 14:21
Vital Signs
Initial and Last Documented VS:
Initial Vital Signs
Temp Pulse Resp BP Pulse Ox
99 F 127 18 149/94 97
09/12/24 13:21 09/12/24 13:21 09/12/24 13:21 09/12/24 13:21 09/12/24 13:21
Last Documented Vital Signs
Temp Pulse Resp BP Pulse Ox
98.0 F 100 16 130/92 95
09/12/24 18:56 09/12/24 19:58 09/12/24 19:58 09/12/24 18:56 09/12/24 19:58
MDM/Problems Addressed
MDM/Problems Addressed:
Patient patient's workup is unremarkable, she does have some wheezing but essentially no air movement and is quite tachypneic even at rest. Suspect this is likely a COPD exacerbation, she has no chest pain to suggest pulmonary embolism. She is too
unstable to be discharged home thus will admit for IV steroids and further supportive treatment
*Critical Care Note
Total Time (30-74mins, 75-104mins- exclusive of procedures): Not Applicable
ED Attending Note
-
Portions of this chart may have been created with voice recognition software.� Occasional wrong word or��sound alike� substitutions may have occurred due to the inherent limitations of voice recognition software.
Discharge Plan
Departure
Patient Disposition: Admit
Date of Disposition: 09/12/24
Time of Disposition: 16:16
Admit to: Med/Surg
Presentation/result/management discussed w/ accepting MD/DO: Hospitalist
Discharge Problem:
Acute exacerbation of chronic obstructive pulmonary disease (COPD)
Interventions
Interventions:
*Risk Screen - Suicide Last Done: 09/12/24 13:21
*General Assessment Last Done: 09/12/24 13:59
*Neglect/Abuse Screening Last Done: 09/12/24 13:25
ED- Fall Risk Assessment Last Done: 09/12/24 13:59
*ED COVID-19 Vaccine History Last Done: 09/12/24 13:59
*Nursing Disposition Last Done: 09/12/24 18:35
ED- Cardiac Assessment Last Done: 09/12/24 13:59
ED- Pulmonary Assessment Last Done: 09/12/24 13:59
Discharge Date and Time
Discharge Date/Time: 09/12/24 18:35
--- NOTE | 2024-09-12 16:45 | HPS.HSE ---
Addendum entered and electronically signed by Tristian Cazares MD 09/12/24 17:54:
Of note COVID and influenza both checked and negative.
Original Note:
Family Physician
-
Family Physician: MYLES Greene
Chief Complaint
-
shortness of breath
History of Present Illness
69-year-old female past medical history of advanced COPD and presenting from home with complaints of shortness of breath. Patient stated her grandson was recently visiting who had some type of viral infection as he was coughing a lot. Subsequently
afterwards patient stated she developed developing shortness of breath. States unable to complete sentences as she was feeling short of breath. States of cough with no productive sputum. Started increasing her oxygenation to 5 L at baseline she
uses 4 L. She called her primary cellophane press operator at [facility] who prescribed prednisone. Patient stated she took 50 mg prednisone x 3 without any improvement in symptoms. Patient called her cellophane press operator office again who recommended patient to be seen
in the ER. Denies any PND orthopnea. Denies any lower extremity swelling. Denies any chest pain. States of severe anxiety.
Medical History
Past Medical History
Past Medical History: Reports Other
Additional Past Medical History:
Chronic hypoxic respiratory failure
COPD
Primary hypertension with hypothyroidism
Hyperlipidemia
History of breast cancer status post surgery and chemotherapy
Ventral hernia
Nonobstructive CAD
Severe esophagitis
Severe anxiety
Sinus tachycardia
Past Surgical History: Reports Other
Additional Past Surgical History:
Lumpectomy
Social History
Tobacco: Smoker (Used to smoke for 40 years. At its peak used to smoke 2 pack a day.)
Living: With Family
Family History
Family History: Not pertinent
Allergies / Home Medications
Allergies reflects when Allergies were last updated in [facility].
Home Medications with original date entered in [facility]
Allergy/Medication List:
Allergies
Allergy/AdvReac Type Severity Reaction Status Date / Time
Iodinated Contrast Media Allergy Tongue Verified 07/22/24 17:28
Swelling
Iodine and Iodide Containing Allergy Tongue Verified 07/22/24 17:28
Produc Swelling
shellfish derived Allergy Tongue Verified 07/22/24 17:28
Swelling
aspirin AdvReac Nausea / Verified 07/22/24 17:28
Vomiting
Home Medications
bupropion HCl 300 mg 24 hr tablet, extended release 300 mg PO DAILY Mental Health/Anxiety 02/04/23
dexlansoprazole 60 mg capsule,biphase delayed release 60 mg PO DAILY Gastrointestinal issue 02/04/23
fluticasone 250 mcg-salmeterol 50 mcg/dose blistr powdr for inhalation (Advair Diskus) 1 inh inhalation R BID Lung/breathing issues 02/04/23
ivabradine 5 mg tablet (Corlanor) 5 mg PO BID Heart disease/condition 02/04/23
levocetirizine 5 mg tablet 5 mg PO DAILYPRN PRN allergies 02/04/23
linaclotide 145 mcg capsule (Linzess) 145 mcg PO DAILY Constipation 02/04/23
ondansetron HCl 8 mg tablet 8 mg PO Q8H nausea 02/04/23
rosuvastatin 5 mg tablet 5 mg PO HS High cholesterol 02/04/23
vortioxetine 20 mg tablet (Trintellix) 20 mg PO DAILY Mental Health/Anxiety 02/04/23
nifedipine 30 mg tablet,extended release 30 mg PO DAILY #30 tabs 02/12/23
sennosides 8.6 mg tablet (senna) 8.6 mg PO HS Constipation 05/31/23
alprazolam 2 mg tablet 2 mg PO QIDPRN PRN anxiety 02/01/24
acetaminophen 500 mg tablet (Tylenol Extra Strength) 1,000 mg PO Q6HPRN PRN mild pain 09/12/24
albuterol sulfate 90 mcg/actuation aerosol inhaler 2 puff inhalation R Q6HPRN PRN sob 09/12/24
docusate sodium 100 mg capsule 100 mg PO HS Constipation 09/12/24
hydrocodone 7.5 mg-acetaminophen 325 mg tablet 1 tab PO BIDPRN PRN severe pain 09/12/24
montelukast 10 mg tablet 10 mg PO HS 09/12/24
prednisone 50 mg tablet 50 mg PO DAILY 09/12/24
therapeutic multivitamin 1 tab PO DAILY 09/12/24
tiotropium bromide 2.5 mcg/actuation mist for inhalation (Spiriva Respimat) 1 inh inhalation R DAILY 09/12/24
zolpidem 6.25 mg tablet,extended release,multiphase 6.25 mg PO HSPRN PRN sleep 09/12/24
Review of Systems
-
History Source: Patient
A 12 point ROS was completed and negative except as noted: Yes
Physical Exam
Vital Signs
Vital Signs
Temp Pulse Resp BP Pulse Ox
99 F 117 24 172/92 100
09/12/24 13:21 09/12/24 14:45 09/12/24 14:45 09/12/24 14:00 09/12/24 14:45
Physical Exam
General: No Apparent Distress, Conversant and Appears Chronically Ill
HEENT: NormoCephalic, Anicteric, Moist mucous membranes, PERRLA and Oxygen
Respiratory: Wheezes and Decreased Breath Sounds
Cardiac: S1/S2, Regular Rhythm and Tachycardia
Breast: Deferred by me
GI: Soft, Non Tender and Other (Large ventral hernia just above the umbilicus )
Rectal: Deferred by Provider
Genito-urinary: Deferred by me
Musculoskeletal: No Clubbing, No Cyanosis and No Edema
Skin: Warm
Neuro: Awake, Alert, Oriented and AO x 3
Psych: Anxious
Laboratory Results
-
09/12/24 14:21
09/12/24 14:21
Laboratory Results
Total Bilirubin 0.4 mg/dl (0.2-1.3) 09/12/24 14:21
AST 24 U/L (14-36) 09/12/24 14:21
ALT 19 U/L (0-35) 09/12/24 14:21
Alkaline Phosphatase 71 U/L (38-126) 09/12/24 14:21
Troponin I < 0.012 ng/ml 09/12/24 14:21
Impression/Plan
-
#Acute on chronic hypoxic respiratory failure
#Acute COPD exacerbation
#Leukocytosis likely secondary to steroids
Start patient on IV Decadron 6mg q12h.
Chest x-ray negative for pulmonary infiltrates. No evidence of lobar pneumonia, pleural effusion, pneumothorax or pulmonary edema.
Start patient on doxycycline. Prolong Qtc and avoid Azithromycin.
Bronchodilators standing and as needed- Xopenex/ipratropium TID
Wean oxygen to baseline
If with productive cough check sputum sample
Continue with Singulair
Follows with cellophane press operator at [facility]
#Primary hypertension
Continue nifedipine
#Inappropriate Sinus tachycardia
Continue Corlanor
Avoid BB as with bronchospasm
#Depression/severe anxiety
Continue with home regimen bupropion and Xanax and Trintellix
#severe esophagitis
Continue with PPI
Chronic constipation
Chronic opiate dependent
Continue with Linzess/Senna/Colace
Breast cancer status post surgery
DVT prophylaxis with Lovenox
Full code
I spent a total of 78 minutes with the patient or on the floor. More than 50% of this time involved counseling and coordination of care.
[2024-09-12] MEDS: ATROVENT NEBULES 0.5 MG INH ×2 (16:57→19:55)
[2024-09-12] MEDS: XANAX 1 MG PO (16:57)
[2024-09-12] MEDS: XOPENEX 1.25 MG INHALANT SOLUTION INH ×2 (16:58→20:01)
[2024-09-12] MEDS: DECADRON 6 MG IV (17:01)
[2024-09-12] MEDS: NORCO 7.5/325 1 TABLET PO (19:39)
[2024-09-12] MEDS: SENOKOT 8.6 MG PO (21:16)
[2024-09-12] MEDS: XANAX 2 MG PO (21:16)
[2024-09-12] MEDS: CRESTOR 5 MG PO (21:17)
[2024-09-12] MEDS: SINGULAIR 10 MG PO (21:17)
[2024-09-12] MEDS: LOVENOX 40 MG SC (21:17)
[2024-09-12] MEDS: COLACE 100 MG PO (21:17)
[2024-09-12] MEDS: VIBRAMYCIN 100 MG PO (21:17)
[2024-09-12 21:49] LABS: Troponin I < 0.012 ng/ml
[2024-09-13] VITALS (7 sets, daily range): BP systolic 131–149; BP diastolic 85–98; BMI 19.2
[2024-09-13] MEDS: TYLENOL 1000 MG PO ×2 (02:04→23:43)
[2024-09-13] MEDS: XANAX 2 MG PO ×3 (06:40→21:12)
[2024-09-13] MEDS: ATROVENT NEBULES 0.5 MG INH ×3 (07:36→21:15)
[2024-09-13] MEDS: XOPENEX 1.25 MG INHALANT SOLUTION INH ×3 (07:37→21:15)
[2024-09-13 07:57] LABS: % Basophils 0.2 % (0-2); % Immature Granulocytes 0.5 % (0-0.5); % Lymphocytes 23.9 % (20.5-51.1); % Monocytes 9.1 % (1.7-9.3); % Neutrophils 66.3 % (42.2-75.2); Absolute Immature Granulocytes 0.1 10^3/uL (0-0.05); Absolute Lymphocytes 3.1 10^3/uL (1.2-3.4); Absolute Monocytes 1.2 10^3/uL (0.1-0.6); Absolute Neutrophils 8.5 10^3/uL (1.4-6.5); Hematocrit 36.4 % (37.0-47.0); Hemoglobin 11.3 g/dL (12.0-16.0); Mean Corpuscular Volume 90.3 fL (81.0-99.0); Mean Platelet Volume 9.9 fL (7.4-10.4); Nucleated Red Blood Cells % 0 %; Platelet Count 446 10^3/uL (130-400); Red Blood Cell Count 4.03 10^6/uL (4.20-5.40); Red Cell Dist. Width 15.2 % (11.5-14.5); White Blood Cell Count 12.8 10^3/uL (4.8-10.8)
[2024-09-13 08:23] LABS: Blood Urea Nitrogen 20 mg/dl (7-17); Carbon Dioxide 29 mmol/L (22-30); Chloride 95 mmol/L (98-107); Estimated Creatinine Clearance 66 ml/min; Glucose 94 mg/dl (70-99); Potassium 4.5 mmol/L (3.5-5.1); Sodium 137 mmol/L (135-145); eGFR > 60.00
[2024-09-13] MEDS: DECADRON 6 MG IV ×2 (08:54→19:25)
[2024-09-13] MEDS: PROTONIX 40 MG PO (08:54)
[2024-09-13] MEDS: VIBRAMYCIN 100 MG PO ×2 (08:54→19:22)
[2024-09-13] MEDS: ZOFRAN 4 MG IV ×2 (08:54→19:28)
[2024-09-13] MEDS: LINZESS 145 MCG PO (08:56)
[2024-09-13] MEDS: WELLBUTRIN XL (24 hour extended release) 300 MG PO (09:01)
[2024-09-13] MEDS: PROCARDIA XL (EXTENDED RELEASE) 30 MG PO (09:01)
[2024-09-13] MEDS: NORCO 7.5/325 1 TABLET PO (10:09)
--- NOTE | 2024-09-13 14:10 | W.PN.HOSP.TC ---
Today's Communication/Plan
-
steroids
Nebs
Get Corlanor
Pulm eval
Wean O2 as tolerated
Assessment / Plan
Assessment / Plan
69-year-old female with shortness of breath
CVS: S1-S2 normal
Chest: decreased BS bilaterally
Abdomen: Soft, NT / Bowel sounds present
Extremities: No edema, normal pulses
# Acute on chronic hypoxic respiratory failure
Secondary to COPD exacerbation
COVID screen neg
Continue IV steroids and doxycycline
Bronchodilators
chest x-ray without any infiltrates
Wean oxygen as tolerated
Check sputum culture if possible
Continue Singulair, H1 sergo
Follows up with pulmonary at [facility]
On Advair, Spiriva
Pulm eval
# Hypertension-continue nifedipine
# Inappropriate sinus tachycardia on Corlanor ( Pt made aware we don't have it and needs to bring from home, her son is going to bring). No strenuous activity till she restarts it.
# Hyperlipidemia-continue statin
# Depression and anxiety-continue Wellbutrin, Xanax and Trintellix (( Pt made aware we don't have it and needs to bring from home, her son is going to bring))
# Severe esophagitis/peptic ulcer disease-continue PPI
# Chronic opiate dependence for pain
# Chronic constipation-continue Colace/senna/Linzess
# History of left breast cancer with surgery in the past
# Insomnia-continue Ambien as needed
# Ventral hernia
# Ex-smoker
# DVT prophylaxis-Lovenox
# Full code
D/W rn AT BED SIDE
Anticipated Discharge: 24 - 48 hours
Subjective/Interval History
-
Date of Service: September 13, 2024
Objective Data
-
Labs:
Laboratory Results
09/13/24
07:28
WBC 12.8 H
Hgb 11.3 L
Hct 36.4 L
Plt Count 446 H
Sodium 137
Potassium 4.5
Chloride 95 L
Carbon Dioxide 29
BUN 20 H
Creatinine 0.6
Glucose 94
Calcium 10.0
Vital Signs:
Vital Signs
Temp Pulse Resp BP Pulse Ox
98.6 F 98 16 148/92 96
09/13/24 07:00 09/13/24 13:10 09/13/24 13:10 09/13/24 07:00 09/13/24 13:10
I&O
09/12/24 09/13/24 09/14/24
06:59 06:59 06:59
Intake Total 240 / 240
Balance 240 / 240
--- NOTE | 2024-09-13 14:38 | CON.PUL ---
Consultation
Consultation Request
Date/Time Consultation Requested: 09/13/2024 - 140
Date/Time Consultation Performed: 09/13/2024 - 1433
Requesting Provider: Dr. Moralez
Performing Provider: Dr. Wu
Reason for Consultation: COPD exacerbation
Medical History
-
Chief Complaint: Chest pressure + shortness of breath x 3 days
History of Present Illness:
69-year-old female former tobacco smoker with a past medical history of COPD, chronic respiratory failure on home O2 at 4 L/min, hypertension, hyperlipidemia, hypothyroidism, breast cancer s/p surgery + chemotherapy, ventral hernia, CAD, anxiety,
history of sinus tachycardia and esophagitis who presents with chest pressure + shortness of breath for 3 days. She had started feel symptoms this past Sunday (09/08/2024), and called her primary international first officer at [employer] and was started on prednisone
50mg at the time. She unfortunately did not improve so was told to go to the ER on Sunday. She states she had a 101�F fever at home. She believes her grandson who was recently visiting may have been sick and was coughing a lot and then her
symptoms started after that. She has a cough but it is dry. She increased her oxygen at home to 5 L/min but still was having difficulty speaking and ambulating. Patient's been having no lower extremity edema. In the ER she was afebrile to 99 �F,
pulse rate 127, breathing at 18 breaths/minute, BP 149/94 and saturating 97% on room air. Labs showed leukocytosis to 15, Hb 12, platelet 517, serum bicarbonate level 32, calcium 10.4, troponin negative at <0.012, and COVID antigen negative. Chest
x-ray performed showing no acute cardiopulmonary process. In the ER she was given 1 mg Xanax, 6 mg Decadron, Xopenex/Atrovent and admitted to telemetry under the hospitalist with pulmonary service consulted for additional management/recommendations.
When I saw the patient she was on 3 L/min nasal cannula, saying she felt okay but still short of breath with activity. She denies any SOB at rest. She says she was so short of breath prior to coming into the hospital that she almost passed out.
She is not coughing up any phlegm. She currently denies chest pain although she gets chest discomfort when she becomes short of breath during activity. She currently denies RENTERIA, nausea, vomiting, arm pain, fevers or chills.
PMHx: History of COPD, chronic hypoxic respiratory failure on 4 L/min, hypertension, hypothyroidism, hyperlipidemia, history of breast cancer s/p surgery + chemotherapy, ventral hernia, CAD, severe esophagitis, anxiety, history of sinus tachycardia,
former tobacco use disorder
PSHx: Lumpectomy
Past Medical History
Past Medical History: Other (Above as per HPI)
Past Surgical History: Other (Above as per HPI)
Social History
Tobacco: Former Smoker (Smoked 1-2 PPD x 40 years)
Alcohol: None
Drug: None
Living: With Family
Family History
Family History: Reviewed & Not Pertinent
Allergies / Home Medications
Allergies
Allergy/AdvReac Type Severity Reaction Status Date / Time
Iodinated Contrast Media Allergy Tongue Verified 07/22/24 17:28
Swelling
Iodine and Iodide Containing Allergy Tongue Verified 07/22/24 17:28
Produc Swelling
shellfish derived Allergy Tongue Verified 07/22/24 17:28
Swelling
aspirin AdvReac Nausea / Verified 07/22/24 17:28
Vomiting
Home Medications
�Medication �Instructions �Recorded �Confirmed �Last Taken �Type
bupropion HCl 300 mg 24 hr tablet, 300 mg PO DAILY Mental 02/04/23 09/12/24 04/06/24 08:00 History
extended release Health/Anxiety
dexlansoprazole 60 mg 60 mg PO DAILY Gastrointestinal 02/04/23 09/12/24 04/05/24 08:00 History
capsule,biphase delayed release issue
fluticasone 250 mcg-salmeterol 50 1 inh inhalation R BID 02/04/23 09/12/24 04/05/24 20:00 History
mcg/dose blistr powdr for Lung/breathing issues
inhalation (Advair Diskus)
ivabradine 5 mg tablet (Corlanor) 5 mg PO BID Heart disease/condition 02/04/23 09/12/24 04/06/24 08:00 History
levocetirizine 5 mg tablet 5 mg PO DAILYPRN PRN allergies 02/04/23 09/12/24 03/29/24 08:00 History
linaclotide 145 mcg capsule 145 mcg PO DAILY Constipation 02/04/23 09/12/24 04/06/24 08:00 History
(Linzess)
ondansetron HCl 8 mg tablet 8 mg PO Q8H nausea 02/04/23 09/12/24 04/05/24 20:00 History
rosuvastatin 5 mg tablet 5 mg PO HS High cholesterol 02/04/23 09/12/24 04/05/24 20:00 History
vortioxetine 20 mg tablet 20 mg PO DAILY Mental 02/04/23 09/12/24 04/05/24 08:00 History
(Trintellix) Health/Anxiety
nifedipine 30 mg tablet,extended 30 mg PO DAILY #30 tabs 02/12/23 09/12/24 04/06/24 08:00 Rx
release
sennosides 8.6 mg tablet (senna) 8.6 mg PO HS Constipation 05/31/23 09/12/24 04/05/24 08:00 History
alprazolam 2 mg tablet 2 mg PO QIDPRN PRN anxiety 02/01/24 09/12/24 04/05/24 20:00 History
acetaminophen 500 mg tablet 1,000 mg PO Q6HPRN PRN mild pain 09/12/24 09/12/24 Unknown History
(Tylenol Extra Strength)
albuterol sulfate 90 mcg/actuation 2 puff inhalation R Q6HPRN PRN sob 09/12/24 09/12/24 Unknown History
aerosol inhaler
docusate sodium 100 mg capsule 100 mg PO HS Constipation 09/12/24 09/12/24 Unknown History
hydrocodone 7.5 mg-acetaminophen 1 tab PO BIDPRN PRN severe pain 09/12/24 09/12/24 Unknown History
325 mg tablet
montelukast 10 mg tablet 10 mg PO HS 09/12/24 09/12/24 Unknown History
prednisone 50 mg tablet 50 mg PO DAILY 09/12/24 09/12/24 Unknown History
therapeutic multivitamin 1 tab PO DAILY 09/12/24 09/12/24 Unknown History
tiotropium bromide 2.5 1 inh inhalation R DAILY 09/12/24 09/12/24 Unknown History
mcg/actuation mist for inhalation
(Spiriva Respimat)
zolpidem 6.25 mg tablet,extended 6.25 mg PO HSPRN PRN sleep 09/12/24 09/12/24 Unknown History
release,multiphase
Review of Systems
-
History Source: Patient
All other systems: Negative unless noted
Vitals / Labs / Diagnostic Testing
Vital Signs
Temp Pulse Resp BP Pulse Ox
98.7 F 98 16 149/91 96
09/13/24 11:00 09/13/24 13:10 09/13/24 13:10 09/13/24 11:00 09/13/24 13:10
Lab Data
09/13/24 07:28
09/13/24 07:28
Microbiology
09/12/24 14:21 Nasal Swab Influenza Types A & B (ROSANA) - Final
Negative for Influenza A & B, NAAT
Negative results must be combined with clinical observations
and patient history.
Nucleic Acid Amplification test (NAAT)performed on the
[employer] platform.
Diagnostic Testing:
Physical Exam
-
HEENT: Normocephalic and Anicteric
Cardiovascular: S1/S2, Murmur (negative), Peripheral Edema (negative) and Other (Tachycardic)
Respiratory: Wheeze (Expiratory heard in the upper lobes bilaterally), Rales (negative), Rhonchi (negative), Non-Labored Respirations and Other (Diminished breath sounds bilaterally)
GI: Soft, Non Distended, Non Tender, Normal Bowel Sounds and Other (Large ventral hernia which is reducible)
Neurology: AO x 3 and Tremors (negative)
Skin: Warm and Dry
General: Respiratory Distress (negative), Comfortable, Fever (negative) and Chills (negative)
Assessment
-
Assessment: 69-year-old female former tobacco smoker with a past medical history of COPD, chronic respiratory failure on home O2 at 4 L/min, hypertension, hyperlipidemia, hypothyroidism, breast cancer s/p surgery + chemotherapy, ventral hernia,
CAD, anxiety, history of sinus tachycardia and esophagitis who presents with chest pressure + shortness of breath for 3 days. She had started feel symptoms this past Sunday (09/08/2024), and called her primary international first officer at [facility] and was started
on prednisone 50mg at the time. She unfortunately did not improve so was told to go to the ER on Sunday. She states she had a 101�F fever at home. She believes her grandson who was recently visiting may have been sick and was coughing a lot and
then her symptoms started after that. She has a cough but it is dry. She increased her oxygen at home to 5 L/min but still was having difficulty speaking and ambulating. Patient's been having no lower extremity edema. In the ER she was afebrile
to 99 �F, pulse rate 127, breathing at 18 breaths/minute, BP 149/94 and saturating 97% on room air. Labs showed leukocytosis to 15, Hb 12, platelet 517, serum bicarbonate level 32, calcium 10.4, troponin negative at <0.012, and COVID antigen
negative. Chest x-ray performed showing no acute cardiopulmonary process. In the ER she was given 1 mg Xanax, 6 mg Decadron, Xopenex/Atrovent and admitted to telemetry under the hospitalist with pulmonary service consulted for additional
management/recommendations.
Chronic conditions [employer]: History of COPD, chronic hypoxic respiratory failure on 4 L/min, hypertension, hypothyroidism, hyperlipidemia, history of breast cancer s/p surgery + chemotherapy, ventral hernia, CAD, severe esophagitis, anxiety, history of
sinus tachycardia, former tobacco use disorder
Impression:
#Acute respiratory failure with hypoxia due to acute COPD exacerbation
#Leukocytosis likely due to outpatient prednisone use [employer]
#Anemia
#Thrombocytosis likely reactive due to above
#Metabolic alkalosis
#Former tobacco smoker (Smoked 1-2 PPD x 40 years)
#Hypothyroidism
#History of sinus tachycardia
#Ventral hernia
#History of breast cancer s/p surgery + chemotherapy
#Anxiety
#Esophagitis
Plan:
- Continue with systemic steroids with Decadron 6 mg IV q12hr and wean as she clinically improves
- Maintain euglycemia while on high dose steroids with goal BG >100 and <180
- Continue with supplemental O2 and titrate to keep SpO2 88-95%
- I have no outpatient medical records to review; request outpatient medical records from her private international first officer
- Given her tachycardia, continue xopenex/atrovent TID with prn doses in between for breakthrough symptoms
- Once her SOB improves, can resume mher Advair + spiriva and then DC atrovent and keep prn xopenex only at that time
- Check ambulatory pulse oximetry prior to discharge
- Check blood gas given elevated serum HCO3 to assess pH and pCO2
- Trend serum HCO3 level
- Given her chest discomfort during activity and her Hx of tobacco use, this is concerning for ACS, however her troponin is negative; this could still be unstable angina; would recommend checking TTE
- If her SOB/chest discomfort does not improve with systemic steroids and nebs, then would consult cardiology and request C
- Pain control
- Given her tachycardia, check TSH and free T4
- Trend plt count and H/H; transfuse if needed to keep Hb>7
- Anxiolytics as needed
- Incentive spirometer encouraged 10x per hour for at least 4 hrs a day
- Replete electrolytes with K>4, Mg>2
- DVT ppx: LMWH
Pulmonary service will continue to follow along. She will follow-up with her international first officer at [facility] (Dr. Deloris Escalera) s/p discharge; if she wishes to follow with us then that is also an option.
Data:
CXR 09/12/2024:
1. No acute pulmonary abnormalities appreciated.
2. Findings suggestive of COPD, unchanged compared to prior study.
Total time spent today was 59 minutes for this encounter. Time includes reviewing laboratory test/imaging results, reviewing pertinent medical records, obtaining and reviewing medical history, performing an appropriate exam, ordering medications,
tests and procedures. Time also includes documentation of this encounter, coordinating patient care and communicating with other healthcare professionals. Total time does not include separately billed tests performed on this date of service.
--- NOTE | 2024-09-13 16:17 | CM ---
sales performance manager reviewed patient's chart and met with patient and patient lives with her daughter in a split level home with 3 steps to enter, patient is independent with adl's and uses a cane and walker with ambulation, patient is on 3 liters of
oxygen at home, and receives her oxygen from [employer].
PCP: Allyson Bourgeois
Pharmacy: [address]
Plan; [facility]
[2024-09-13] MEDS: NON-FORMULARY ITEM PO (17:29)
[2024-09-13] MEDS: LOVENOX 40 MG SC (17:46)
[2024-09-13] MEDS: NON-FORMULARY ITEM 5 MG PO (19:24)
[2024-09-13] MEDS: CRESTOR 5 MG PO (21:12)
[2024-09-13] MEDS: SINGULAIR 10 MG PO (21:12)
[2024-09-13] MEDS: COLACE 100 MG PO (21:12)
[2024-09-13] MEDS: SENOKOT 8.6 MG PO (21:12)
[2024-09-14] MEDS: XANAX 2 MG PO ×3 (03:18→19:59)
[2024-09-14] MEDS: OCEAN, SALINE MIST 1 SPRAYS NASAL (03:19)
[2024-09-14 03:23] VITALS: BP 155/90
[2024-09-14 05:32] LABS: Venous Blood Gas B.E. 4.5 mmol/L (-4 to +4); Venous Blood Gas HCO3 31.5 mmol/L (22-27); Venous Blood Gas O2 Sat % 98.6 %; Venous Blood Gas pCO2 57 mmHg (35-48); Venous Blood Gas pH 7.35 (7.32-7.43); Venous Blood Gas pO2 111 mmHg (30-50)
[2024-09-14 05:45] LABS: % Basophils 0.1 % (0-2); % Immature Granulocytes 0.5 % (0-0.5); % Lymphocytes 18.3 % (20.5-51.1); % Monocytes 8.1 % (1.7-9.3); Absolute Immature Granulocytes 0.1 10^3/uL (0-0.05); Absolute Lymphocytes 2.3 10^3/uL (1.2-3.4); Absolute Neutrophils 9.3 10^3/uL (1.4-6.5); Hemoglobin 11.6 g/dL (12.0-16.0); Mean Corp Hgb Conc. 30.5 g/dL (33.0-37.0); Mean Corpuscular Hgb 27.7 pg (27.0-31.0); Mean Corpuscular Volume 90.7 fL (81.0-99.0); Mean Platelet Volume 8.7 fL (7.4-10.4); Nucleated Red Blood Cells % 0 %; Platelet Count 487 10^3/uL (130-400); Red Blood Cell Count 4.19 10^6/uL (4.20-5.40); Red Cell Dist. Width 15.1 % (11.5-14.5); White Blood Cell Count 12.8 10^3/uL (4.8-10.8)
[2024-09-14] MEDS: TYLENOL 1000 MG PO ×2 (06:32→16:45)
[2024-09-14 06:33] LABS: ALT (SGPT) 16 U/L (0-35); AST (SGOT) 23 U/L (14-36); Albumin 4.2 g/dl (3.5-5.0); Alkaline Phosphatase 64 U/L (38-126); Blood Urea Nitrogen 18 mg/dl (7-17); Calcium 9.9 mg/dl (8.4-10.2); Carbon Dioxide 30 mmol/L (22-30); Chloride 96 mmol/L (98-107); Estimated Creatinine Clearance 66 ml/min; Glucose 96 mg/dl (70-99); Magnesium 1.4 mg/dl (1.6-2.3); Phosphorus 3.8 mg/dl (2.5-4.5); Potassium 4.7 mmol/L (3.5-5.1); Sodium 136 mmol/L (135-145); Total Bilirubin 0.2 mg/dl (0.2-1.3); Total Protein 6.6 g/dl (6.3-8.2); eGFR > 60.00
[2024-09-14 06:59] LABS: TSH Reflex To Free T4 0.34 uIU/ml (0.47-4.68)
[2024-09-14 07:27] LABS: Free T4 1.02 ng/dl (0.78-2.19)
[2024-09-14 07:45] VITALS: BP 131/78
[2024-09-14] MEDS: ATROVENT NEBULES 0.5 MG INH ×3 (08:24→16:03)
[2024-09-14] MEDS: XOPENEX 1.25 MG INHALANT SOLUTION INH ×3 (08:25→16:03)
[2024-09-14] MEDS: VIBRAMYCIN 100 MG PO ×2 (08:58→19:49)
[2024-09-14] MEDS: PROCARDIA XL (EXTENDED RELEASE) 30 MG PO (08:58)
[2024-09-14] MEDS: MAGNESIUM SULFATE 50 IV (08:59)
[2024-09-14] MEDS: DECADRON 6 MG IV ×2 (08:59→19:49)
[2024-09-14] MEDS: WELLBUTRIN XL (24 hour extended release) 300 MG PO (08:59)
[2024-09-14] MEDS: ZOFRAN 4 MG IV ×3 (09:00→21:21)
[2024-09-14] MEDS: NON-FORMULARY ITEM 20 MG PO (09:00)
[2024-09-14] MEDS: NON-FORMULARY ITEM 5 MG PO ×2 (09:00→19:52)
[2024-09-14] MEDS: PROTONIX 40 MG PO (09:01)
[2024-09-14] MEDS: LINZESS 145 MCG PO (09:01)
--- NOTE | 2024-09-14 09:46 | W.PN.PUL3 ---
Today's Communication / Plan
-
Wean steroids, lowering Decadron from 6 mg IV q12hr to 4 mg IV q12hr tomorrow
Nebulized bronchodilators with Xopenex/Atrovent
Doxycycline x 5 days then stop
Singulair
Bowel regimen
Up OOB
Encourage incentive spirometer
Outpatient follow-up with her private dry box operator through [facility]
Assessment
-
Assessment: 69-year-old female former tobacco smoker with a past medical history of COPD, chronic respiratory failure on home O2 at 4 L/min, hypertension, hyperlipidemia, hypothyroidism, breast cancer s/p surgery + chemotherapy, ventral hernia,
CAD, anxiety, history of sinus tachycardia and esophagitis who presents with chest pressure + shortness of breath for 3 days. She had started feel symptoms this past Sunday (09/08/2024), and called her primary dry box operator at [facility] and was started
on prednisone 50mg at the time. She unfortunately did not improve so was told to go to the ER on Sunday. She states she had a 101�F fever at home. She believes her grandson who was recently visiting may have been sick and was coughing a lot and
then her symptoms started after that. She has a cough but it is dry. She increased her oxygen at home to 5 L/min but still was having difficulty speaking and ambulating. Patient's been having no lower extremity edema. In the ER she was afebrile
to 99 �F, pulse rate 127, breathing at 18 breaths/minute, BP 149/94 and saturating 97% on room air. Labs showed leukocytosis to 15, Hb 12, platelet 517, serum bicarbonate level 32, calcium 10.4, troponin negative at <0.012, and COVID antigen
negative. Chest x-ray performed showing no acute cardiopulmonary process. In the ER she was given 1 mg Xanax, 6 mg Decadron, Xopenex/Atrovent and admitted to telemetry under the hospitalist with pulmonary service consulted for additional
management/recommendations.
Chronic conditions SECTION HAND: History of COPD, chronic hypoxic respiratory failure on 4 L/min, hypertension, hypothyroidism, hyperlipidemia, history of breast cancer s/p surgery + chemotherapy, ventral hernia, CAD, severe esophagitis, anxiety, history of
sinus tachycardia, former tobacco use disorder
Impression:
#Acute respiratory failure with hypoxia due to acute COPD exacerbation
#Leukocytosis likely due to outpatient prednisone use SECTION HAND
#Anemia
#Thrombocytosis likely reactive due to above
#Metabolic alkalosis with chronic hypercapnic respiratory failure
#Former tobacco smoker (Smoked 1-2 PPD x 40 years)
#Hypothyroidism
#History of sinus tachycardia
#Ventral hernia
#History of breast cancer s/p surgery + chemotherapy
#Anxiety
#Esophagitis
Plan:
- Continue with systemic steroids with Decadron 6 mg IV q12hr (equivalent to 80mg prednisone) and wean as she clinically improves --> can start weaning tomorrow to 4mg IV q12hr
- Maintain euglycemia while on high dose steroids with goal BG >100 and <180
- Continue with supplemental O2 and titrate to keep SpO2 88-95%
- Currently on doxycycline to started 09/12/2024 - would complete a 5 day course to cover for possible URI
- I have no outpatient medical records to review; request outpatient medical records from her private dry box operator
- Given her tachycardia, continue xopenex/atrovent TID with prn doses in between for breakthrough symptoms
- Once her SOB improves, can resume her Advair + spiriva and then DC atrovent and keep prn xopenex only at that time
- Check ambulatory pulse oximetry prior to discharge
- Check blood gas given elevated serum HCO3 to assess pH and pCO2
- Trend serum HCO3 level
- Blood gas checked this morning (09/14) shows stable hypercapnia with pCO2 57, pH 7.35
- Given her chest discomfort during activity and her Hx of tobacco use, this is concerning for ACS, however her troponin is negative; this could still be unstable angina; would recommend checking TTE
- If her SOB/chest discomfort does not improve with systemic steroids and nebs, then would consult cardiology and request [facility]
- Pain control
- Given her tachycardia, TFTs shows subclinical hyperthyroidism with TSH 0.34 and free T4 1.02
- Trend plt count and H/H; transfuse if needed to keep Hb>7
- Anxiolytics as needed
- Incentive spirometer encouraged 10x per hour for at least 4 hrs a day
- Replete electrolytes with K>4, Mg>2
- DVT ppx: LMWH
Pulmonary service will continue to follow along. She will follow-up with her dry box operator at [facility] (Dr. Deloris Escalera) s/p discharge; if she wishes to follow with us then that is also an option.
Data:
CXR 09/12/2024:
1. No acute pulmonary abnormalities appreciated.
2. Findings suggestive of COPD, unchanged compared to prior study.
Total time spent today was 37 minutes for this encounter. Time includes reviewing laboratory test/imaging results, reviewing pertinent medical records, obtaining and reviewing medical history, performing an appropriate exam, ordering medications,
tests and procedures. Time also includes documentation of this encounter, coordinating patient care and communicating with other healthcare professionals. Total time does not include separately billed tests performed on this date of service.
Subjective Data
-
Date of Service:
Date of Service: September 14, 2024
Chief Complaint: Pulmonary Follow Up
Subjective:
Patient was seen and evaluated today at bedside. Currently on 2 L/min nasal cannula and breathing comfortably although she endorses abdominal discomfort. She is passing flatus. She denies any chest pain, RENTERIA, nausea, vomiting, fevers chills
Review of Systems
General: Other (Negative unless mentioned above)
Objective Data
Data Reviewed
Vital Signs / I&O / Oxygen:
Vital Signs
Temp Pulse Resp BP Pulse Ox
97.8 F 110 18 131/78 100
09/14/24 07:45 09/14/24 08:29 09/14/24 08:29 09/14/24 07:45 09/14/24 08:29
Intake and Output
09/13/24 09/14/24 09/15/24
06:59 06:59 06:59
Intake Total 240 / 240 1020 / 1020
Balance 240 / 240 1020 / 1020
SaO2 100
Nasal Cannula flow liters per 3
minute
Physical Exam
General: Respiratory Distress (negative), Comfortable, Chills (negative) and Sweats (negative)
HEENT: Normocephalic and Anicteric
Cardiovascular: S1-S2, Peripheral Edema (negative) and Other (Tachycardic)
Respiratory: Wheeze (negative), Crackles (negative), Rhonchi (negative), Non-Labored Respirations and Other (Diminished breath sounds bilaterally)
GI: Soft, Non Distended, Tender (slightly tender to palpation at the ventral hernia site), Normal Bowel Sounds and Other (Ventral hernia which is reducible)
Neurology: AO x 3 and Tremors (negative)
Skin: Warm, Dry, Cyanosis (negative) and Jaundice (negative)
Labs/Micro/Reports
Lab Data
09/14/24 05:24
09/14/24 05:24
Microbiology
09/12/24 21:32 Nose MRSA Screen - Final
Staph aureus MRSA
09/12/24 14:21 Nasal Swab Influenza Types A & B (ROSANA) - Final
Negative for Influenza A & B, NAAT
Negative results must be combined with clinical observations
and patient history.
Nucleic Acid Amplification test (NAAT)performed on the
[employer] platform.
[2024-09-14] MEDS: NORCO 7.5/325 1 TABLET PO ×2 (11:02→21:19)
[2024-09-14 11:36] VITALS: BP 145/87
--- NOTE | 2024-09-14 13:04 | CM ---
Patient to return to her daughter home in [place] [facility] [address] [facility] [address] [place]
Plan; Home to daughters house with VN when stable.
--- NOTE | 2024-09-14 13:49 | W.PN.HOSP.TC ---
Today's Communication/Plan
-
wean steroids as able
echo TOMORROW
Assessment / Plan
Assessment / Plan
69-year-old female with shortness of breath
CVS: S1-S2 normal
Chest: decreased BS bilaterally
Abdomen: Soft, NT / Bowel sounds present, Large Ventral hernia soft
Extremities: No edema, normal pulses
# Acute on chronic hypoxic respiratory failure
Secondary to COPD exacerbation
COVID screen neg
Continue IV steroids and doxycycline
Bronchodilators
chest x-ray without any infiltrates
Wean oxygen as tolerated- now on 2 L
Check sputum culture if possible
Continue Singulair, H1 sergo
Follows up with pulmonary at [facility]
On Advair, Spiriva as OP
VBG noted
Pulm eval appreciated
ECHO tomorrow
# Hypertension-continue nifedipine
# Inappropriate sinus tachycardia on Corlanor . HR better, ( TSH noted euthyroid sick syndrome)
# Hyperlipidemia-continue statin
# Depression and anxiety-continue Wellbutrin, Xanax and Trintellix
# Severe esophagitis/peptic ulcer disease-continue PPI
# Chronic opiate dependence for pain
# Chronic Constipation-Continue Colace/senna/Linzess
# History of Left breast cancer with surgery in the past
# Insomnia-continue Ambien as needed
# Large Ventral Hernia
# Ex-smoker
# DVT prophylaxis-Lovenox
# Full code
D/W RN AT BED SIDE
Spoke to daughter and updated.
Anticipated Discharge: 24 - 48 hours
Subjective/Interval History
-
Date of Service: September 14, 2024
Objective Data
-
Labs:
Laboratory Results
09/14/24
05:24
WBC 12.8 H
Hgb 11.6 L
Hct 38.0
Plt Count 487 H
Sodium 136
Potassium 4.7
Chloride 96 L
Carbon Dioxide 30
BUN 18 H
Creatinine 0.6
Glucose 96
Calcium 9.9
Total Bilirubin 0.2
AST 23
ALT 16
Alkaline Phosphatase 64
Vital Signs:
Vital Signs
Temp Pulse Resp BP Pulse Ox
98.3 F 105 18 145/87 100
09/14/24 11:36 09/14/24 12:31 09/14/24 12:31 09/14/24 11:36 09/14/24 11:36
I&O
09/13/24 09/14/24 09/15/24
06:59 06:59 06:59
Intake Total 240 / 240 1020 / 1020 590 / 590
Balance 240 / 240 1020 / 1020 590 / 590
[2024-09-14 16:00] VITALS: BP 137/77
[2024-09-14] MEDS: LOVENOX 40 MG SC (17:53)
[2024-09-14] MEDS: MYLICON 80 MG PO (18:29)
[2024-09-14 19:27] VITALS: BP 120/87
[2024-09-14] MEDS: CRESTOR 5 MG PO (21:19)
[2024-09-14] MEDS: SENOKOT 8.6 MG PO (21:19)
[2024-09-14] MEDS: SINGULAIR 10 MG PO (21:19)
[2024-09-14] MEDS: COLACE 100 MG PO (21:20)
[2024-09-14 23:25] VITALS: BP 151/101
[2024-09-15] MEDS: AMBIEN 5 MG PO (00:08)
[2024-09-15] MEDS: XANAX 2 MG PO ×2 (03:09→11:24)
[2024-09-15 03:33] VITALS: BP 122/82
[2024-09-15] MEDS: ZOFRAN 4 MG IV ×2 (07:34→16:13)
[2024-09-15 08:06] VITALS: BP 164/92
[2024-09-15] MEDS: ATROVENT NEBULES INH (08:29)
[2024-09-15] MEDS: XOPENEX 1.25 MG INHALANT SOLUTION INH ×2 (08:30→13:36)
[2024-09-15] MEDS: VIBRAMYCIN 100 MG PO ×2 (09:18→16:46)
[2024-09-15] MEDS: WELLBUTRIN XL (24 hour extended release) 300 MG PO (09:18)
[2024-09-15] MEDS: DECADRON 4 MG IV (09:18)
[2024-09-15] MEDS: LINZESS 145 MCG PO (09:19)
[2024-09-15] MEDS: PROCARDIA XL (EXTENDED RELEASE) 30 MG PO (09:19)
[2024-09-15] MEDS: PROTONIX 40 MG PO (09:19)
[2024-09-15] MEDS: NON-FORMULARY ITEM 20 MG PO (09:20)
[2024-09-15] MEDS: NON-FORMULARY ITEM 5 MG PO (09:20)
--- NOTE | 2024-09-15 09:26 | W.PN.PUL3 ---
Today's Communication / Plan
-
Doing well, she is satting 100% on 2L, home O2 eval today
Transition IV steroids to PO, taper at discharge--she is on 10mg daily/baseline, can consider increase to 15mg
She is aware her condition is end-stage, FU OP Pulm @[facility]
ECHO obtained/normal result
Discharge planning per team otherwise
Assessment
-
69-year-old female former tobacco smoker with a past medical history of COPD, chronic respiratory failure on home O2 at 4 L/min, hypertension, hyperlipidemia, hypothyroidism, breast cancer s/p surgery + chemotherapy, ventral hernia, CAD, anxiety,
history of sinus tachycardia and esophagitis who presents with chest pressure + shortness of breath for 3 days. She had started feel symptoms this past Sunday (09/08/2024), and called her primary ripshear operator at [facility] and was started on prednisone
50mg at the time. She unfortunately did not improve so was told to go to the ER on Sunday. She states she had a 101�F fever at home. She believes her grandson who was recently visiting may have been sick and was coughing a lot and then her
symptoms started after that. She has a cough but it is dry. She increased her oxygen at home to 5 L/min but still was having difficulty speaking and ambulating. Patient's been having no lower extremity edema. In the ER she was afebrile to 99 �F,
pulse rate 127, breathing at 18 breaths/minute, BP 149/94 and saturating 97% on room air. Labs showed leukocytosis to 15, Hb 12, platelet 517, serum bicarbonate level 32, calcium 10.4, troponin negative at <0.012, and COVID antigen negative. Chest
x-ray performed showing no acute cardiopulmonary process. In the ER she was given 1 mg Xanax, 6 mg Decadron, Xopenex/Atrovent and admitted to telemetry under the hospitalist with pulmonary service consulted for additional management/recommendations.
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
sinus tachycardia, former tobacco use disorder
Impression:
#Acute respiratory failure with hypoxia due to acute COPD exacerbation
#Leukocytosis likely due to outpatient prednisone use LOGISTICS OFFICER
#Anemia
#Thrombocytosis likely reactive due to above
#Metabolic alkalosis with chronic hypercapnic respiratory failure
#Former tobacco smoker (Smoked 1-2 PPD x 40 years)
#Hypothyroidism
#History of sinus tachycardia
#Ventral hernia
#History of breast cancer s/p surgery + chemotherapy
#Anxiety
#Esophagitis
Plan:
Continue with systemic steroids, will transition to PO prednisone today
She is maintained on 10mg daily, given recent exacerbations she may consider increasing to 15mg
She is aware her condition is end stage
Maintain euglycemia while on high dose steroids with goal BG >100 and <180
Continue with supplemental O2 and titrate to keep SpO2 88-95%
She is 100% on 2L, can likely wean to off
Home O2 eval
Currently on doxycycline to started 09/12/2024 - would complete a 5 day course to cover for possible URI
Given her tachycardia, continue xopenex/atrovent TID with prn doses in between for breakthrough symptoms
Once her SOB improves, can resume her Advair + spiriva and then DC atrovent and keep prn xopenex only at that time
Check ambulatory pulse oximetry prior to discharge
Check blood gas given elevated serum HCO3 to assess pH and pCO2
ABG reviewed, chronic CO2 retention noted, compensated
pCO2 57, pH 7.35
Would need OP FU, sleep study testing
Unsure if this would add to her QoL
Large hernia noted, she has been told that she is in-operable given her lung disease
She manages with pain control, stool softeners
Given her chest discomfort during activity and her Hx of tobacco use, this is concerning for ACS, however her troponin is negative; this could still be unstable angina
ECHO obtained, normal
Given her tachycardia, TFTs shows subclinical hyperthyroidism with TSH 0.34 and free T4 1.02
Can eval for further risk as outpatient
- Trend plt count and H/H; transfuse if needed to keep Hb>7
- Anxiolytics as needed
- Incentive spirometer encouraged 10x per hour for at least 4 hrs a day
- Replete electrolytes with K>4, Mg>2
- DVT ppx: LMWH
Pulmonary service will continue to follow along.
She will follow-up with her ripshear operator at [facility] (Dr. Deloris Escalera) s/p discharge; if she wishes to follow with us then that is also an option.
Discharge planning per team
Data:
CXR 09/12/2024:
1. No acute pulmonary abnormalities appreciated.
2. Findings suggestive of COPD, unchanged compared to prior study.
ECHO 09/15/24- Normal biventricular size and systolic function without regional wall motion abnormality. Estimated LVEF 55-60%. Aortic sclerosis without stenosis. Mild/moderate tricuspid regurgitation. Normal PASP. Compared to 02/06/23: TR has
improved from moderate to mild/moderate. PASP has decreased from 45 mmHg to 36 mmHg.
-----
Total time spent today was 50 minutes for this encounter. Time includes reviewing laboratory test/imaging results, reviewing pertinent medical records, obtaining and reviewing medical history, performing an appropriate exam, ordering medications,
tests and procedures. Time also includes documentation of this encounter, coordinating patient care and communicating with other healthcare professionals. Total time does not include separately billed tests performed on this date of service.
Subjective Data
-
Date of Service:
Date of Service: September 15, 2024
Chief Complaint: Pulmonary Follow Up
Subjective:
No acute events ON, remains on supplemental o2
Feels her breathing is somewhat improving but she is aware her condition is end stage
Having issues with her bowels given her large chronic hernia
Objective Data
Data Reviewed
Vital Signs / I&O / Oxygen:
Vital Signs
Temp Pulse Resp BP Pulse Ox
98.0 F 111 17 164/92 100
09/15/24 08:06 09/15/24 09:19 09/15/24 08:06 09/15/24 09:19 09/15/24 08:06
Intake and Output
09/14/24 09/15/24 09/16/24
06:59 06:59 06:59
Intake Total 1020 / 1020 590 / 590
Balance 1020 / 1020 590 / 590
SaO2 100
Nasal Cannula flow liters per 2
minute
Physical Exam
General: Respiratory Distress (negative), Comfortable, Chills (negative) and Sweats (negative)
HEENT: Normocephalic, Anicteric and Moist Mucous Membranes (edentulous)
Cardiovascular: S1-S2, Regular Rhythm, Peripheral Edema (negative) and Other (Tachycardic)
Respiratory: Wheeze (negative), Crackles (negative), Rhonchi (negative), Non-Labored Respirations, Other (Diminished breath sounds bilaterally) and Other (overall diminished BS)
GI: Soft, Non Distended, Tender (slightly tender to palpation at the ventral hernia site), Normal Bowel Sounds and Other (Large ventral hernia which is reducible)
Neurology: AO x 3, No Motor Deficits and Tremors (negative)
Skin: Warm, Dry, Cyanosis (negative) and Jaundice (negative)
Labs/Micro/Reports
Lab Data
09/14/24 05:24
09/14/24 05:24
Microbiology
09/12/24 21:32 Nose MRSA Screen - Final
Staph aureus MRSA
09/12/24 14:21 Nasal Swab Influenza Types A & B (ROSANA) - Final
Negative for Influenza A & B, NAAT
Negative results must be combined with clinical observations
and patient history.
Nucleic Acid Amplification test (NAAT)performed on the
[employer] platform.
[2024-09-15] MEDS: TYLENOL 1000 MG PO (09:27)
[2024-09-15] MEDS: MYLICON 80 MG PO (09:27)
[2024-09-15 10:36] VITALS: BP 142/81
[2024-09-15] MEDS: DULCOLAX 10 MG RECTAL (11:51)
--- NOTE | 2024-09-15 12:52 | W.PN.HOSP.TC ---
Addendum entered and electronically signed by Tristian Cazares MD 09/16/24 08:16:
moderate protein calorie malnutrition of chronic illness secondary to end-stage COPD
Addendum entered and electronically signed by Tristian Cazares MD 09/16/24 08:15:
More than 30 minutes spent in discharge including
Final examination of the patient
Summarizing hospital stay
Instructions for continuing care to all relevant caregivers
Preparation of discharge records, prescriptions, and referral forms
Total time spent (in minutes): 49
Original Note:
Today's Communication/Plan
-
Home o2 eval
start dispo
po prednisone taper
Has OP pulm f/u in September
Assessment / Plan
Assessment / Plan
69-year-old female with shortness of breath
# Acute on chronic hypoxic respiratory failure
Secondary to COPD exacerbation
COVID screen neg
Completed 5 days of doxycycline. P.o. prednisone taper regimen.
Bronchodilators
chest x-ray without any infiltrates
Wean oxygen as tolerated- now on 2 L
Check sputum culture if possible
Continue Singulair, H1 sergo
Follows up with pulmonary at [facility]
On Advair, Spiriva as OP
VBG noted
Pulm eval appreciated
Echocardiogram with EF of 55 to 60%. Aortic sclerosis without stenosis. Mild to moderate tricuspid regurgitation. Normal PASP. Normal biventricular size and systolic function without regional wall motion abnormality.
Discussed with patient in detail. Patient understand her poor prognosis as with end-stage COPD. States she will continue to follow-up with [facility] band head saw operator as considering undergoing some experimental treatment plan
#Constipation-resolved with suppository.
# Hypertension-continue nifedipine
# Inappropriate sinus tachycardia on Corlanor . HR better, ( TSH noted euthyroid sick syndrome)
# Hyperlipidemia-continue statin
# Depression and anxiety-continue Wellbutrin, Xanax and Trintellix
# Severe esophagitis/peptic ulcer disease-continue PPI
# Chronic opiate dependence for pain
# Chronic Constipation-Continue Colace/senna/Linzess
# History of Left breast cancer with surgery in the past
# Insomnia-continue Ambien as needed
# Large Ventral Hernia
# Ex-smoker
# DVT prophylaxis-Lovenox
# Full code
Anticipated Discharge: Today
Subjective/Interval History
-
Date of Service: September 15, 2024
on 2L oxygen
states breathing has improved
tolerating diet
Objective Data
-
Vital Signs:
Vital Signs
Temp Pulse Resp BP Pulse Ox
98.5 F 108 18 142/81 100
09/15/24 10:36 09/15/24 10:36 09/15/24 10:36 09/15/24 10:36 09/15/24 10:36
I&O
09/14/24 09/15/24 09/16/24
06:59 06:59 06:59
Intake Total 1020 / 1020 590 / 590
Balance 1020 / 1020 590 / 590
Physical Exam
-
General: No Apparent Distress, Conversant and Cachectic
HEENT: Normocephalic, Atraumatic and Oxygen
Respiratory: Decreased Breath Sounds (improved compared to admisison ); Negative Rhonchi
Cardiac: Regular Rhythm and S1/S2; Negative Murmur
GI: Soft, Nontender, Nondistended and Normal Bowel Sounds
Musculoskeletal: No Clubbing, No Cyanosis and No Edema
Skin: Warm
Neuro: Awake, Alert, Oriented, AO x 3 and No Motor Deficits
Psych: Calm
[2024-09-15] MEDS: ATROVENT NEBULES 0.5 MG INH (13:36)
--- NOTE | 2024-09-15 14:23 | CM ---
Addendum entered by Isaura Oliva 09/15/24 15:46:
Patient for discharge today. IMM reviewed, signed, placed in chart, patient provided with copy. Patient reports her daughter will provide transportation home and bring her home O2.
Original Note:
CM reviewed chart, met with patient bedside. Patient reports no needs at this time, reports she will be discharging home to her daughters house, will continue services with [facility]. Patient reports she resides in [place] but has been staying with
daughter. Patient confirms she has home O2. CM will continue to follow for all discharge planning needs.
Plan; home with [facility], has home O2.
[2024-09-15 14:49] VITALS: PULSE 120
[2024-09-15] MEDS: NORCO 7.5/325 1 TABLET PO (14:56)
[2024-09-15 15:21] VITALS: BP 144/94
--- NOTE | 2024-09-15 16:03 | VNURNOTE ---
Home Health Liaison spoke with patient to discuss [facility] nurse/therapy, visits, schedule and homebound status. Patient is agreeable and understands that visits at home will be 2-3 x per week to assess and teach medical management. Patient is aware
that [facility] will contact them for start of care in 1-2 days after discharge from . [facility] referral completed in [facility].
[2024-09-15] MEDS: LOPRESSOR 2.5 MG IV (16:09)
--- NOTE | 2024-09-15 16:52 | PN.CDI ---
CDI
- -
CDI:
Physician Documentation Request
Admit Date: 09/12/24 17:50
Dear Doctor Debora,
Please review the following and provide your response in the progress notes.
Clinical Indicators:
Pt admitted with acute COPD exacerbation/Acute on Chronic Hypoxic Respiratory Failure
Documented in the record, Cachexia/BMI 19.2
Nutrition consult 09/13, ' ( 04/06) 108lb 5oz, (02/05) 110lb, (11/05) 113lb. Pt has experienced a gradual insignificant weight loss trend x 11months..... Pt meets criteria for moderate protein calorie malnutrition of chronic illness with intake <75% of
estimated energy requirement for >1mo & mild loss of subcutaneous fat and muscle. Nutrition to encourage po intake >50% for meals and add Ensure BID for additional kcal, protein....Loss over Tricep severity mild...Otbital...Muscle loss over Buccal
severity mild ...'
Based on the above information and your assessment, which of the following most accurately represents the patient's nutritional status?
Moderate Protein Calorie Malnutrition
Other (please specify)
[place] Criteria (ACP Hospitalist 2017)
2 or more criteria must be present for either
non severe or severe malnutrition
Note that the criteria differs related to the
presence of an acute or chronic illness
Acute Illness Chronic Illness
Energy Intake Non Severe: <75% for >7 days Non Severe: <75% for >1 month
Severe: <50% for >5 days Severe: <75% for >1 month
Weight Loss Non Severe: 1-2% over 1 week Non Severe: 5% over 1 month
5% over 1 month 7.5% over 3 months
7.5% over 3 months 10% over 6 months
1 year N/A 20% over 1 year
Severe: >2% over 1 week Severe: >5% over 1 month
>5% over 1 month >7.5% over 3 months
>7.5% over 3 months >10% over 6 months
1 year N/A >20% over 1 year
Body Fat Non Severe: Mild Decrease Non Severe: Mild Loss
Severe: Moderate Decrease Severe: Severe Loss
Muscle Mass Non Severe: Mild Decrease Non Severe: Mild Loss
Severe: Moderate Decrease Severe: Severe Loss
Fluid Accumulation Non Severe: Mild Accumulation Non Severe: Mild Accumulation
Severe: Moderate to severe Severe: Moderate to severe
accumulation accumulation
Reduced But[place]aker Strength Non Severe: N/A Non Severe: N/A
Severe: Measurably reduced Severe: Measurably reduced
Additional criteria that can be used to Determine if Mild or Moderate Malnutrition (Merck Manual 2018)
Use of terms such as suspected, likely, concern for, or probable (associated with a specific diagnosis that is being evaluated, monitored, or treated as if it exists) are acceptable and can be coded in the inpatient setting, when documented at the
time of discharge.
Thank you,
Fauzia Villeda RN
CDI Specialist
[place] [facility]
Please use your independent medical judgment in providing your response.
--- NOTE | 2024-09-15 18:25 | W.DCSUMMARY ---
Discharge Summary
Discharge Data
Date of Admission: 09/12/24
Date of Discharge: 09/15/24
-
Pending Results: No
Hospital Course
69-year-old female past medical history of chronic hypoxic respiratory failure, COPD, chronic constipation, primary hypertension, sinus tachycardia, hyperlipidemia, depression, severe anxiety, esophagitis, peptic ulcer disease, chronic opiate
dependent, history of left breast cancer status post surgery, insomnia, large abdominal ventral hernia who is presenting from home with shortness of breath. Patient says she was hypoxic and increased oxygenation at home. Patient did have sick
contact at home. Patient was found to be in acute on chronic COPD exacerbation. Patient was started on IV steroids. Bronchodilators were started. Patient was started on doxycycline. Patient oxygenation slowly downtrending. Pulmonary was
consulted. Echocardiogram with EF of 55 to 60%. Aortic sclerosis without stenosis. Mild to moderate tricuspid regurgitation. Normal PASP. Normal biventricular size and systolic function without regional wall motion abnormality. Discussed with
patient in detail. Patient understand her poor prognosis as with end-stage COPD. States she will continue to follow-up with [facility] clinical research coordinator as considering undergoing some experimental treatment plan. Patient was at her baseline
oxygenation. Pulmonary recommended slow taper regimen. Patient be discharged home with p.o. doxycycline, Xopenex and prednisone taper regimen.
Discharge Plan
-
Patient Disposition: Home with Home Care
Discharge Diagnosis/Procedures: Acute on chronic hypoxic respiratory failure secondary to COPD exacerbation
Constipation
Condition: Fair
Diet: Low Cholesterol
Activity: With assistance and As tolerated
Driving Restrictions: Not until seen by your Dr
Referrals:
Allyson Bourgeois CRNP [Family Provider] - in less than 1 week
Prescriptions:
New
doxycycline hyclate 100 mg Capsule
100 mg PO Q12 2 Days Qty: 4 0RF
prednisone 10 mg Tablet
See Rx Instructions .ROUTE .COMPLEX Qty: 42 0RF
Rx Instructions:
Take By Mouth:
50 mg daily x 3 days, 40 mg daily x3 days,
30 mg daily x3 days, 20mg daily x 3 days then continue 10 mg daily home dose
levalbuterol tartrate [Xopenex HFA] 45 mcg/actuation HFA aerosol inhaler
2 inh inhalation Q6H PRN (Reason: shortness of breath or wheezing) Qty: 15 0RF
Continued
ivabradine [Corlanor] 5 mg Tablet
5 mg PO BID
Linzess 145 mcg Capsule
145 mcg PO DAILY
Trintellix 20 mg Tablet
20 mg PO DAILY
fluticasone propion-salmeterol [Advair Diskus] 250-50 mcg/dose blister with device
1 inh INHALATION R BID
ondansetron HCl 8 mg tablet
8 mg PO Q8H
rosuvastatin 5 mg tablet
5 mg PO HS
bupropion HCl 300 mg tablet extended release 24 hr
300 mg PO DAILY
levocetirizine 5 mg tablet
5 mg PO DAILYPRN PRN (Reason: allergies)
dexlansoprazole 60 mg capsule,biphase delayed releas
60 mg PO DAILY
nifedipine 30 mg tablet extended release
30 mg PO DAILY Qty: 30 0RF
sennosides [senna] 8.6 mg Tablet
8.6 mg PO HS
alprazolam 2 mg tablet
2 mg PO QIDPRN PRN (Reason: anxiety)
therapeutic multivitamin Tablet
1 tab PO DAILY
acetaminophen [Tylenol Extra Strength] 500 mg Tablet
1,000 mg PO Q6HPRN PRN (Reason: mild pain)
hydrocodone-acetaminophen 7.5-325 mg Tablet
1 tab PO BIDPRN PRN (Reason: severe pain)
montelukast 10 mg Tablet
10 mg PO HS
zolpidem 6.25 mg Tablet,Ext Release Multiphase
6.25 mg PO HSPRN PRN (Reason: sleep)
Spiriva Respimat 2.5 mcg/actuation mist
1 inh INHALATION R DAILY
docusate sodium 100 mg capsule
100 mg PO HS
Discontinued
prednisone 50 mg Tablet
50 mg PO DAILY
Patient Comments:
09/12/24: to take for 7 days, afterwards take 5mg QD
albuterol sulfate 90 mcg/actuation Hfa Aerosol Inhaler
2 puff INHALATION R Q6HPRN PRN (Reason: sob)
Discharge Orders:
Discharge Patient (As Directed); Ordered 09/15/24
Ordered By: Tristian Cazares
Discharge Date and Time
Discharge Date/Time: 09/15/24 17:42
Print Language: HEBREW
== END 2024-09-15 17:42 | disposition home health service (06) | DRG 190 ==
LOC: 4 WEST ACU 17:50
PROVIDERS: Emergency Medicine; ADMITTING PHYSICIAN Hospitalist; CONSULT PHYSICIAN Internal Medicine Critical Care Medicine; EMERGENCY PHYSICIAN Emergency Medicine; FAMILY PHYSICIAN Nurse Practitioner Family
DX: J44.1 Chronic obstructive pulmonary disease with (acute) exacerbation (principal); J96.21 Acute and chronic respiratory failure with hypoxia; F11.20 Opioid dependence, uncomplicated; I47.11 Inappropriate sinus tachycardia, so stated; E87.3 Alkalosis; E44.0 Moderate protein-calorie malnutrition; Z68.1 Body mass index [BMI] 19.9 or less, adult; F41.9 Anxiety disorder, unspecified; E03.9 Hypothyroidism, unspecified; I10 Essential (primary) hypertension; K43.9 Ventral hernia without obstruction or gangrene; Z85.3 Personal history of malignant neoplasm of breast; I25.10 Atherosclerotic heart disease of native coronary artery without angina pectoris; K20.90 Esophagitis, unspecified without bleeding; Z87.891 Personal history of nicotine dependence; Z99.81 Dependence on supplemental oxygen; E78.00 Pure hypercholesterolemia, unspecified; D72.829 Elevated white blood cell count, unspecified; F32.A Depression, unspecified; Z87.11 Personal history of peptic ulcer disease; K59.09 Other constipation; I70.0 Atherosclerosis of aorta; I08.1 Rheumatic disorders of both mitral and tricuspid valves; Z79.51 Long term (current) use of inhaled steroids; Z79.899 Other long term (current) drug therapy; G47.00 Insomnia, unspecified; D64.9 Anemia, unspecified; D75.839 Thrombocytosis, unspecified; E11.9 Type 2 diabetes mellitus without complications; Z90.710 Acquired absence of both cervix and uterus; Z11.52 Encounter for screening for COVID-19; K59.00 Constipation, unspecified
CPT/HCPCS: 71046; 74022; 80048; 80053; 82805; 83735; 84100; 84439; 84443; 84484; 85025; 87070; 87147; 87502; 87811; 93005; 93306; 94640; 94760; 96374; 97116; 97161; 99285

== ENCOUNTER 2024-11-18 07:19 | Emergency (ER) | payer MEDICARE, SELFPAY ==
[2024-11-18 07:24] VITALS: BP 163/97
[2024-11-18 07:56] VITALS: BMI 18.9
--- NOTE | 2024-11-18 08:17 | ED.GENMED ---
History of Present Illness
<MYLES Garcia - Last Filed: 11/18/24 12:59>
General
Chief Complaint: Abdominal Symptoms
Source: patient
Exam Limitations: none
Time Seen by Provider: 11/18/24 08:06
Nursing documentation reviewed up to this point in time: agreed with
History of Present Illness
History of Present Illness:
69 yr old female with past medical history of COPD oxygen dependent, sinus tachycardia hyperlipidemia depression anxiety esophagitis breast cancer chronic ventral hernia presents to the ED for evaluation of abdominal pain/hernia. Pt has a known
abdominal hernia however since yesterday her hernia is distended and very painful since. As per daughter and patient, patient is not a surgical candidate due to her significant COPD. Denies any fevers, denies nausea and vomiting. Patient does
have a history of constipation however did move her bowels today.
Past History
<MYLES Garcia - Last Filed: 11/18/24 12:59>
Past History
ED Past Medical History: Asthma, Cancer (Remote history of breast cancer), COPD, NIDDM and Other (Chronic abdominal wall hernia, chronic abdominal pain, upper GI bleed January 2023, Chronic cough, Ulcers)
ED Past Surgical History: Cholecystectomy, Gynecological (Hysterectomy) and Other (left Lumpectomy)
Patient has exhibited threatening behavior?: No
PSI?: No
Social History
Tobacco: Former smoker
Alcohol: Occasional
Drug: None
Personal:
Living: with family
Employment: Retired
Family History
Family History: Other and Unable to obtain
Review of Systems
<MYLES Garcia - Last Filed: 11/18/24 12:59>
Review of Systems
Allergies reviewed?: Yes
Other source history: family
All Other Systems: ROS reviewed and negative except as documented in HPI and ROS
Constitutional: Reports no symptoms; Denies fever
Respiratory: Reports trouble breathing
Cardiac: Reports no symptoms
ABD/GI: Reports abdominal pain; Denies nausea, vomiting or diarrhea
: Reports no symptoms
Phy Exam
<MYLES Garcia - Last Filed: 11/18/24 12:59>
General Physical Exam
General Presentation: no apparent distress
General age: appears stated age
General Skin: warm and dry
General Habitus: elderly
General Mental: alert
General Hydration: appears well hydrated
Cardiovascular Exam
Cardiovascular Exam: tachycardia
Pulmonary Exam
Pulmonary Exam: lungs clear and no respiratory distress
Gastrointestinal Exam
Gastrointestinal Exam: other (Large anterior hernia right hernia softer left hernia Morform with visible hard lumps (likely stool) palpated ; + BS )
Neurological Exam
Neurological Exam: alert and oriented x3
Musculoskeletal Exam
Musculoskeletal Exam: full ROM
Skin Exam
Skin Exam: normal color and warm/dry
Psychiatric Exam
Psychiatric Exam: normal mood/affect
Course
<MYLES Garcia - Last Filed: 11/18/24 12:59>
Orders/Labs/Results
Orders:
Orders
11/18/24 08:26
IV Insert/Care/Rem.- Treatment PRN
Morphine Sulfate 2 mg IV NOW STA
11/18/24 08:48
CT Abd/pel (oral only)-[facility] Only Urgent
Comment:
Reason For Exam: known hernia
Iohexol [Omnipaque] See Protocol PO NOW STA
11/18/24 08:52
0.9% Sodium Chloride 500 ml [Nss] 500 ml IV BOLUS
Morphine Sulfate 2 mg IV NOW STA
11/18/24 09:30
Ondansetron Orally Disint [Zofran Odt (Orally Disintegrating)] 4 mg .ROUTE .[facility] ONE
Ondansetron Orally Disint [Zofran Odt (Orally Disintegrating)] 4 mg PO NOW STA
11/18/24 09:44
Complete Blood Count/With Diff Urgent
Comprehensive Metabolic Panel Urgent
Lactic Acid Urgent
PTT Urgent
Prothrombin Time Urgent
11/18/24 10:25
Morphine Sulfate 2 mg .ROUTE .[facility] ONE
11/18/24 10:26
Morphine Sulfate 2 mg IV NOW STA
Abnormal Lab Results
11/18/24
09:44
WBC 21.0 H 10^3/uL
(4.8-10.8)
RBC 4.07 L 10^6/uL
(4.20-5.40)
Hgb 11.8 L g/dL
(12.0-16.0)
MCHC 30.3 L g/dL
(33.0-37.0)
Plt Count 425 H 10^3/uL
(130-400)
Abs Immat Gran (auto) 0.1 H 10^3/uL
(0-0.05)
Absolute Neuts (auto) 16.3 H 10^3/uL
(1.4-6.5)
Absolute Monos (auto) 1.6 H 10^3/uL
(0.1-0.6)
Immature Gran % 0.6 H %
(0-0.5)
Neutrophils % 77.7 H %
(42.2-75.2)
Lymphocytes % 12.7 L %
(20.5-51.1)
Chloride 90 L mmol/L
(98-107)
Carbon Dioxide 44 H mmol/L
(22-30)
BUN 23 H mg/dl
(7-17)
Creatinine 0.5 L mg/dL
(0.6-1.0)
Glucose 125 H mg/dl
(70-99)
11/18/24 09:44
11/18/24 09:44
Vital Signs
Initial and Last Documented VS:
Initial Vital Signs
Temp Pulse Resp BP Pulse Ox
97.5 F 121 24 163/97 87
11/18/24 07:24 11/18/24 07:24 11/18/24 07:24 11/18/24 07:24 11/18/24 07:24
Last Documented Vital Signs
Temp Pulse Resp BP Pulse Ox
97.5 F 113 24 161/94 100
11/18/24 07:24 11/18/24 09:44 11/18/24 09:44 11/18/24 09:44 11/18/24 09:44
<Neville Coy, DO - Last Filed: 11/18/24 09:48>
Orders/Labs/Results
Orders:
Orders
11/18/24 08:26
IV Insert/Care/Rem.- Treatment PRN
Morphine Sulfate 2 mg IV NOW STA
11/18/24 08:48
CT Abd/pel (oral only)-[facility] Only Urgent
Comment:
Reason For Exam: known hernia
Iohexol [Omnipaque] See Protocol PO NOW STA
11/18/24 08:52
0.9% Sodium Chloride 500 ml [Nss] 500 ml IV BOLUS
Morphine Sulfate 2 mg IV NOW STA
11/18/24 09:30
Ondansetron Orally Disint [Zofran Odt (Orally Disintegrating)] 4 mg .ROUTE .[facility] ONE
Ondansetron Orally Disint [Zofran Odt (Orally Disintegrating)] 4 mg PO NOW STA
11/18/24 09:44
Complete Blood Count/With Diff Urgent
Comprehensive Metabolic Panel Urgent
Lactic Acid Urgent
PTT Urgent
Prothrombin Time Urgent
11/18/24 10:25
Morphine Sulfate 2 mg .ROUTE .[facility] ONE
11/18/24 10:26
Morphine Sulfate 2 mg IV NOW STA
Abnormal Lab Results
11/18/24
09:44
WBC 21.0 H 10^3/uL
(4.8-10.8)
RBC 4.07 L 10^6/uL
(4.20-5.40)
Hgb 11.8 L g/dL
(12.0-16.0)
MCHC 30.3 L g/dL
(33.0-37.0)
Plt Count 425 H 10^3/uL
(130-400)
Abs Immat Gran (auto) 0.1 H 10^3/uL
(0-0.05)
Absolute Neuts (auto) 16.3 H 10^3/uL
(1.4-6.5)
Absolute Monos (auto) 1.6 H 10^3/uL
(0.1-0.6)
Immature Gran % 0.6 H %
(0-0.5)
Neutrophils % 77.7 H %
(42.2-75.2)
Lymphocytes % 12.7 L %
(20.5-51.1)
Chloride 90 L mmol/L
(98-107)
Carbon Dioxide 44 H mmol/L
(22-30)
BUN 23 H mg/dl
(7-17)
Creatinine 0.5 L mg/dL
(0.6-1.0)
Glucose 125 H mg/dl
(70-99)
11/18/24 09:44
11/18/24 09:44
Vital Signs
Initial and Last Documented VS:
Initial Vital Signs
Temp Pulse Resp BP Pulse Ox
97.5 F 121 24 163/97 87
11/18/24 07:24 11/18/24 07:24 11/18/24 07:24 11/18/24 07:24 11/18/24 07:24
Last Documented Vital Signs
Temp Pulse Resp BP Pulse Ox
97.5 F 113 24 161/94 100
11/18/24 07:24 11/18/24 09:44 11/18/24 09:44 11/18/24 09:44 11/18/24 09:44
<MYLES Garcia - Last Filed: 11/18/24 12:59>
MDM/Problems Addressed
MDM/Problems Addressed:
Patient is a 69-year-old female with end-stage COPD on chronic nasal cannula oxygen presents with evaluation for abdominal hernia. Patient has a known chronic ventral hernia she is not a surgical candidate because of her COPD. She complains of
more distention to the hernia since last night and more discomfort. On exam she has a significant ventral hernia that is not reducible. She was medicated for pain and feels she denies any nausea vomiting fever chills. She does have a history
patient did move her bowels today but reports she only takes MiraLAX every other day and Colace every other day. CAT scan was done and shows an 18 cm midline supra umbilical anterior abdominal wall hernia which contains the bulk of the feces filled
transverse colon without associate obstruction or strangulation.
On exam unable to feel sporadic hard lesion likely stool.
I did review with patient to take her MiraLAX and Colace every day not every other day. She is to increase water intake and increase diet high in fresh fruits and vegetables prune juice etc.
She is on steroids daily and her white count is elevated likely steroid response. She denies any fever chills and is afebrile here no recent URI complaints denies any urinary frequency urgency dysuria. Her BUN is 23 she was hydrated her creatinine
is normal 0.5. Patient is mildly tachycardic however does have a history of sinus tachycardia and is baseline tachycardic. She is in no acute distress and well-appearing
Case discussed ED physician evaluated patient patient has again known hernia and does not surgical candidate. There is significant stool in the hernia, and patient was recommended to increase her constipation medication.
<MYLES Garcia - Last Filed: 11/18/24 12:59>
*Critical Care Note
Total Time (30-74mins, 75-104mins- exclusive of procedures): Not Applicable
ED Attending Note
<MYLES Garcia - Last Filed: 11/18/24 12:59>
-
Portions of this chart may have been created with voice recognition software.� Occasional wrong word or��sound alike� substitutions may have occurred due to the inherent limitations of voice recognition software.
<Neville Coy DO - Last Filed: 11/18/24 09:48>
ED Attending Note
Patient seen and examined by attending physician: Yes
ED Attending Note:
I have reviewed and agree with plan by Sofiya Clements. My exam revealed 69-year-old female with mild respiratory distress, on 4 L of oxygen. Abdomen with large ventral hernia stool contents on the left side. Mildly tender. Will check CT,
consult with surgery.
Discharge Plan
Departure
Patient Disposition: Home (Routine Discharge)
Date of Disposition: 11/18/24
Time of Disposition: 12:55
Patient with high blood pressure during this ER visit?: Yes
Condition: Fair
Covid-19: Not Applicable
Discharge Problem:
Abdominal wall hernia
Instructions: Abdominal wall hernias, BLOOD PRESSURE
Prescriptions:
No Action
ivabradine [Corlanor] 5 mg Tablet
5 mg PO BID
Linzess 145 mcg Capsule
145 mcg PO DAILY
Trintellix 20 mg Tablet
20 mg PO DAILY
fluticasone propion-salmeterol [Advair Diskus] 250-50 mcg/dose blister with device
1 inh INHALATION R BID
ondansetron HCl 8 mg tablet
8 mg PO Q8H
rosuvastatin 5 mg tablet
5 mg PO HS
bupropion HCl 300 mg tablet extended release 24 hr
300 mg PO DAILY
levocetirizine 5 mg tablet
5 mg PO DAILYPRN PRN (Reason: allergies)
dexlansoprazole 60 mg capsule,biphase delayed releas
60 mg PO DAILY
nifedipine 30 mg tablet extended release
30 mg PO DAILY Qty: 30 0RF
sennosides [senna] 8.6 mg Tablet
8.6 mg PO HS
alprazolam 2 mg tablet
2 mg PO QIDPRN PRN (Reason: anxiety)
therapeutic multivitamin Tablet
1 tab PO DAILY
acetaminophen [Tylenol Extra Strength] 500 mg Tablet
1,000 mg PO Q6HPRN PRN (Reason: mild pain)
hydrocodone-acetaminophen 7.5-325 mg Tablet
1 tab PO BIDPRN PRN (Reason: severe pain)
montelukast 10 mg Tablet
10 mg PO HS
zolpidem 6.25 mg Tablet,Ext Release Multiphase
6.25 mg PO HSPRN PRN (Reason: sleep)
Spiriva Respimat 2.5 mcg/actuation mist
1 inh INHALATION R DAILY
docusate sodium 100 mg capsule
100 mg PO HS
doxycycline hyclate 100 mg Capsule
100 mg PO Q12 2 Days Qty: 4 0RF
prednisone 10 mg Tablet
See Rx Instructions .ROUTE .COMPLEX Qty: 42 0RF
Rx Instructions:
Take By Mouth:
50 mg daily x 3 days, 40 mg daily x3 days,
30 mg daily x3 days, 20mg daily x 3 days then continue 10 mg daily home dose
levalbuterol tartrate [Xopenex HFA] 45 mcg/actuation HFA aerosol inhaler
2 inh inhalation Q6H PRN (Reason: shortness of breath or wheezing) Qty: 15 0RF
Referrals:
UNKNOWN - PT DOES,NOT KNOW [Family Provider] -
Activity Restrictions/Additional Instructions:
As discussed please take MiraLAX daily along with Colace. You may take Senokot as needed. Increase water intak increase diet high in fiber fresh fruits and vegetables. Avoid constipating foods such as bananas.
Follow-up with your family doctor in the next several days for reevaluation return if any worsening of symptoms.
Interventions
Interventions:
*Risk Screen - Suicide Last Done: 11/18/24 07:25
*General Assessment Last Done: 11/18/24 07:25
ED- Fall Risk Assessment Last Done: 11/18/24 07:55
*ED COVID-19 Vaccine History Last Done: 11/18/24 07:25
[facility]mc[facility] Assessment Last Done: 11/18/24 07:55
Discharge Date and Time
Print Language: SAMI
[2024-11-18] MEDS: OMNIPAQUE 50 ML PO (08:54)
[2024-11-18] MEDS: ZOFRAN ODT (ORALLY DISINTEGRATING) 4 MG PO (09:31)
[2024-11-18] MEDS: MORPHINE SULFATE 2 MG IV ×2 (09:32→10:27)
[2024-11-18] MEDS: NSS 500 IV (09:42)
[2024-11-18 09:44] VITALS: BP 161/94
[2024-11-18 09:54] LABS: % Basophils 0.3 % (0-2); % Eosinophils 1.2 % (0-6); % Immature Granulocytes 0.6 % (0-0.5); % Lymphocytes 12.7 % (20.5-51.1); % Monocytes 7.5 % (1.7-9.3); % Neutrophils 77.7 % (42.2-75.2); Absolute Basophils 0.1 10^3/uL (0-0.2); Absolute Eosinophils 0.3 10^3/uL (0-0.7); Absolute Immature Granulocytes 0.1 10^3/uL (0-0.05); Absolute Lymphocytes 2.7 10^3/uL (1.2-3.4); Absolute Monocytes 1.6 10^3/uL (0.1-0.6); Absolute Neutrophils 16.3 10^3/uL (1.4-6.5); Hematocrit 38.9 % (37.0-47.0); Hemoglobin 11.8 g/dL (12.0-16.0); Mean Corp Hgb Conc. 30.3 g/dL (33.0-37.0); Mean Corpuscular Volume 95.6 fL (81.0-99.0); Mean Platelet Volume 9.1 fL (7.4-10.4); Nucleated Red Blood Cells % 0 %; Platelet Count 425 10^3/uL (130-400); Red Blood Cell Count 4.07 10^6/uL (4.20-5.40); Red Cell Dist. Width 14.2 % (11.5-14.5)
[2024-11-18 10:02] LABS: INR 0.93; PT 12.8 Sec (11.4-14.6)
[2024-11-18 10:05] LABS: Lactic Acid 0.9 mmol/L (0.7-2.0)
[2024-11-18 10:06] LABS: ALT (SGPT) 17 U/L (0-35); AST (SGOT) 27 U/L (14-36); Alkaline Phosphatase 86 U/L (38-126); Blood Urea Nitrogen 23 mg/dl (7-17); Calcium 9.5 mg/dl (8.4-10.2); Chloride 90 mmol/L (98-107); Estimated Creatinine Clearance 68 ml/min; Glucose 125 mg/dl (70-99); Potassium 4.4 mmol/L (3.5-5.1); Sodium 140 mmol/L (135-145); Total Bilirubin 0.3 mg/dl (0.2-1.3); Total Protein 6.7 g/dl (6.3-8.2); eGFR > 60.00
[2024-11-18 10:13] LABS: Carbon Dioxide 44 mmol/L (22-30)
[2024-11-18 11:18] VITALS: BP 159/99
[2024-11-18 12:00] VITALS: BP 156/85
[2024-11-18 13:39] VITALS: BP 150/64
== END 2024-11-18 13:40 | disposition home or self-care (01) ==
LOC: EMR 07:19
PROVIDERS: Nurse Practitioner; EMERGENCY PHYSICIAN Emergency Medicine
DX: K43.9 Ventral hernia without obstruction or gangrene (principal); E11.9 Type 2 diabetes mellitus without complications; E78.5 Hyperlipidemia, unspecified; J44.89 Other specified chronic obstructive pulmonary disease; Z85.3 Personal history of malignant neoplasm of breast; Z99.81 Dependence on supplemental oxygen; Z87.891 Personal history of nicotine dependence
CPT/HCPCS: 96374; 96376; 96361; 99284; 74176; 80053; 83605; 85025; 85610; 85730

== ENCOUNTER 2024-12-18 15:05 | Emergency (ER) | payer MEDICARE, SELFPAY ==
[2024-12-18 15:24] VITALS: BP 138/88
[2024-12-18 16:12] LABS: % Basophils 0.2 % (0-2); % Eosinophils 0.9 % (0-6); % Immature Granulocytes 0.6 % (0-0.5); % Lymphocytes 15.8 % (20.5-51.1); % Monocytes 6.5 % (1.7-9.3); Absolute Eosinophils 0.2 10^3/uL (0-0.7); Absolute Immature Granulocytes 0.1 10^3/uL (0-0.05); Absolute Lymphocytes 2.7 10^3/uL (1.2-3.4); Absolute Monocytes 1.1 10^3/uL (0.1-0.6); Absolute Neutrophils 13.2 10^3/uL (1.4-6.5); Hematocrit 40.2 % (37.0-47.0); Hemoglobin 11.7 g/dL (12.0-16.0); Mean Corp Hgb Conc. 29.1 g/dL (33.0-37.0); Mean Corpuscular Hgb 28.7 pg (27.0-31.0); Mean Corpuscular Volume 98.5 fL (81.0-99.0); Mean Platelet Volume 9.1 fL (7.4-10.4); Nucleated Red Blood Cells % 0 %; Platelet Count 294 10^3/uL (130-400); Red Blood Cell Count 4.08 10^6/uL (4.20-5.40); Red Cell Dist. Width 13.5 % (11.5-14.5); White Blood Cell Count 17.3 10^3/uL (4.8-10.8)
[2024-12-18 16:16] LABS: INR 0.92; PT 12.9 Sec (11.4-14.6)
[2024-12-18 16:22] LABS: ALT (SGPT) 16 U/L (0-35); AST (SGOT) 19 U/L (14-36); Albumin 4.2 g/dl (3.5-5.0); Alkaline Phosphatase 81 U/L (38-126); Blood Urea Nitrogen 15 mg/dl (7-17); Calcium 9.8 mg/dl (8.4-10.2); Chloride 87 mmol/L (98-107); Glucose 169 mg/dl (70-99); Potassium 4.5 mmol/L (3.5-5.1); Sodium 133 mmol/L (135-145); Total Bilirubin 0.7 mg/dl (0.2-1.3); Total Protein 6.5 g/dl (6.3-8.2); eGFR > 60.00
[2024-12-18 16:28] LABS: NT-proBNP 85.4 pg/ml
[2024-12-18 16:41] LABS: Carbon Dioxide 38 mmol/L (22-30)
[2024-12-18] MEDS: DUONEB 3 ML INH (16:54)
--- NOTE | 2024-12-18 17:01 | ED.GENMED ---
History of Present Illness
General
Chief Complaint: Breathing Problem
Time Seen by Provider: 12/18/24 16:03
History of Present Illness
History of Present Illness:
69-year-old female with end-stage COPD on 4 L O2, anemia, known large ventral hernia, anxiety and depression, sinus tachycardia, hyperlipidemia, hypertension presenting to the emergency department for shortness of breath. Patient was visited by her
nurse practitioner today who felt that her vital signs were abnormal including her heart rate and her work of breathing, prompting her to come to the hospital. Patient is also had increasing pain to her ventral hernia. She takes multiple stool
softeners, had a bowel movement yesterday. Denies any vomiting. Does note mild cough. Reports subjective fevers. Denies any chest pain. She has not had to increase her O2 requirements. She reports recent admission at [facility] at the beginning of
the month. Denies additional acute medical complaints
Past History
Past History
ED Past Medical History: Asthma, Cancer (Remote history of breast cancer), COPD, NIDDM and Other (Chronic abdominal wall hernia, chronic abdominal pain, upper GI bleed January 2023, Chronic cough, Ulcers)
ED Past Surgical History: Cholecystectomy, Gynecological (Hysterectomy) and Other (left Lumpectomy)
Patient has exhibited threatening behavior?: No
PSI?: No
Social History
Tobacco: Former smoker
Alcohol: Occasional
Drug: None
Personal:
Living: with family
Employment: Retired
Family History
Family History: Other and Unable to obtain
Phy Exam
Physical Exam
Physical Exam:
General: Well-appearing, no clinical signs of dehydration, nontoxic and in no acute distress
HEENT: protecting airway
Neck: appears supple
CV: Tachycardic, regular rhythm, no evidence of cyanosis
Resp: Mild tachypnea with being diminished air movement bilaterally, scant expiratory wheezing.
Abd: Large ventral hernia, soft on palpation, generalized tenderness. Reducible.
Extremities: No deformities, no swelling, no erythema
Neuro: alert, no focal neurologic deficit
: deferred
Rectal: deferred
Psych: Normal affect
Skin: Intact
Scores
Heart Failure Risk
Heart Failure Risk Score: Not Applicable
Course
Orders/Labs/Results
Orders:
Orders
12/18/24
Electrocardiogram (*1) Stat
Comment: DONE EMR
12/18/24 15:11
CR Chest - 2 Views Urgent
Comment:
Reason For Exam: sob
12/18/24 15:48
Complete Blood Count/With Diff Urgent
Comprehensive Metabolic Panel Urgent
NT-proBNP Urgent
12/18/24 15:51
PT/INR [Prothrombin Time] Urgent
12/18/24 16:24
Ipratropium/Albuterol Sulfate [Duoneb] 3 ml INH R NOW ONE
Morphine Sulfate 4 mg IV NOW STA
12/18/24 16:26
CT Abd/pel Without Iv Or Oral Urgent
Comment:
Reason For Exam: abdominal hernia, pain, reducible
12/18/24 18:41
COVID-19 Antigen Urgent
Source: Nasal Swab
Influenza A+B Rapid Molecular Urgent
JUANA Source: Nasal Swab
Specimen Description:
Abnormal Lab Results
12/18/24
15:48
WBC 17.3 H 10^3/uL
(4.8-10.8)
RBC 4.08 L 10^6/uL
(4.20-5.40)
Hgb 11.7 L g/dL
(12.0-16.0)
MCHC 29.1 L g/dL
(33.0-37.0)
Abs Immat Gran (auto) 0.1 H 10^3/uL
(0-0.05)
Absolute Neuts (auto) 13.2 H 10^3/uL
(1.4-6.5)
Absolute Monos (auto) 1.1 H 10^3/uL
(0.1-0.6)
Immature Gran % 0.6 H %
(0-0.5)
Neutrophils % 76.0 H %
(42.2-75.2)
Lymphocytes % 15.8 L %
(20.5-51.1)
Sodium 133 L mmol/L
(135-145)
Chloride 87 L mmol/L
(98-107)
Carbon Dioxide 38 H mmol/L
(22-30)
Creatinine 0.5 L mg/dL
(0.6-1.0)
Glucose 169 H mg/dl
(70-99)
12/18/24 15:48
12/18/24 15:48
Vital Signs
Initial and Last Documented VS:
Initial Vital Signs
Temp Pulse Resp BP Pulse Ox
97.9 F 126 18 138/88 93
12/18/24 15:24 12/18/24 15:24 12/18/24 15:24 12/18/24 15:24 12/18/24 15:24
Last Documented Vital Signs
Temp Pulse Resp BP Pulse Ox
97.9 F 120 22 138/88 94
12/18/24 15:24 12/18/24 19:44 12/18/24 19:44 12/18/24 15:24 12/18/24 19:44
MDM/Problems Addressed
MDM/Problems Addressed:
69-year-old female with end-stage COPD on 4 L O2, anemia, known large ventral hernia, anxiety and depression, sinus tachycardia, hyperlipidemia, hypertension presenting for shortness of breath and pain in her abdomen with known hernia. Vital signs
significant for tachycardia, however on review of EMR, patient appears to be chronically tachycardic.
On exam patient is in no acute respiratory distress. Oxygenation is normal on her 4 L. She does have diminished air movement bilaterally with end expiratory wheezing, however known chronic end-stage COPD. She does note mild cough and subjective
fevers. Infection is a consideration. Will obtain chest x-ray imaging. Will treat with a DuoNeb. Regarding her abdominal pain, very large ventral hernia, however soft on palpation and reducible. Do not suspect acute incarceration or
strangulation. Patient is allergic to contrast. Will obtain CT without for further assessment. Preliminary laboratory analysis consistent with leukocytosis, however appears chronic
19:00 - CT without acute pathology. Family expresses concern regarding her constipation. Explained that patient's hernia is likely contributing to the constipation, pain with straining. They note that patient is not a surgical candidate. Offered
enema, however patient declined. Chest x-ray without acute cardiopulmonary disease. Patient's breathing appears to have improved, stable on 4 L. At this time feel that she is stable for discharge for continued outpatient management of her
constipation and COPD. Return precautions discussed to patient and son at bedside who verbalized understanding
*EKG
Interpreted by ED Provider?: Yes
EKG Intrepretation Date: 12/18/24
EKG Intrepretation Time: 17:13
Interpretation: normal
Comparison EKG: no changes (09/12/24)
Heart Rate: 124
Rate: tachycardiac
Rhythm: sinus
Stout: normal axis
Interval: normal interval
QRS Pattern: normal QRS
Ischemia: no ischemia
*Critical Care Note
Total Time (30-74mins, 75-104mins- exclusive of procedures): Not Applicable
ED Attending Note
-
Portions of this chart may have been created with voice recognition software.� Occasional wrong word or��sound alike� substitutions may have occurred due to the inherent limitations of voice recognition software.
Discharge Plan
Departure
Patient Disposition: Home (Routine Discharge)
Date of Disposition: 12/18/24
Time of Disposition: 19:10
Patient with high blood pressure during this ER visit?: No
Condition: Good
Discharge Problem:
Constipation, COPD (chronic obstructive pulmonary disease) with emphysema
Instructions: Constipation, Adult ED, Chronic obstructive pulmonary disease (COPD) - Discharge instructions
Prescriptions:
No Action
ivabradine [Corlanor] 5 mg Tablet
5 mg PO BID
Linzess 145 mcg Capsule
145 mcg PO DAILY
Trintellix 20 mg Tablet
20 mg PO DAILY
fluticasone propion-salmeterol [Advair Diskus] 250-50 mcg/dose blister with device
1 inh INHALATION R BID
ondansetron HCl 8 mg tablet
8 mg PO Q8H
rosuvastatin 5 mg tablet
5 mg PO HS
bupropion HCl 300 mg tablet extended release 24 hr
300 mg PO DAILY
levocetirizine 5 mg tablet
5 mg PO DAILYPRN PRN (Reason: allergies)
dexlansoprazole 60 mg capsule,biphase delayed releas
60 mg PO DAILY
nifedipine 30 mg tablet extended release
30 mg PO DAILY Qty: 30 0RF
sennosides [senna] 8.6 mg Tablet
8.6 mg PO HS
alprazolam 2 mg tablet
2 mg PO QIDPRN PRN (Reason: anxiety)
therapeutic multivitamin Tablet
1 tab PO DAILY
acetaminophen [Tylenol Extra Strength] 500 mg Tablet
1,000 mg PO Q6HPRN PRN (Reason: mild pain)
hydrocodone-acetaminophen 7.5-325 mg Tablet
1 tab PO BIDPRN PRN (Reason: severe pain)
montelukast 10 mg Tablet
10 mg PO HS
zolpidem 6.25 mg Tablet,Ext Release Multiphase
6.25 mg PO HSPRN PRN (Reason: sleep)
Spiriva Respimat 2.5 mcg/actuation mist
1 inh INHALATION R DAILY
docusate sodium 100 mg capsule
100 mg PO HS
doxycycline hyclate 100 mg Capsule
100 mg PO Q12 2 Days Qty: 4 0RF
prednisone 10 mg Tablet
See Rx Instructions .ROUTE .COMPLEX Qty: 42 0RF
Rx Instructions:
Take By Mouth:
50 mg daily x 3 days, 40 mg daily x3 days,
30 mg daily x3 days, 20mg daily x 3 days then continue 10 mg daily home dose
levalbuterol tartrate [Xopenex HFA] 45 mcg/actuation HFA aerosol inhaler
2 inh inhalation Q6H PRN (Reason: shortness of breath or wheezing) Qty: 15 0RF
Referrals:
UNKNOWN - PT DOES,NOT KNOW [Family Provider] -
Activity Restrictions/Additional Instructions:
You were seen in the emergency department for shortness of breath and abdominal pain
You were found to have a normal CT of your abdomen which shows evidence of your hernia, however no obstructive pathology. No signs of pneumonia or infection. Please continue to follow with your primary care doctor and take your stool softeners as
tolerated
Please follow-up closely with your primary care physician.
Return to the emergency department for any worsening of your symptoms, or any development of chest pain, difficulty breathing, abdominal pain with persistent vomiting and inability to tolerate food or liquid by mouth (concern for dehydration),
weakness, headache or confusion, fever greater than 100.4, or any additional symptoms that are concerning to you.
Thank you for choosing [facility].
Interventions
Interventions:
*Risk Screen - Suicide Last Done: 12/18/24 15:26
*General Assessment Last Done: 12/18/24 15:26
*Neglect/Abuse Screening Last Done: 12/18/24 15:26
ED- Fall Risk Assessment Last Done: 12/18/24 17:37
*ED COVID-19 Vaccine History Last Done: 12/18/24 15:26
*Nursing Disposition Last Done: 12/18/24 19:45
ED- Cardiac Assessment Last Done: 12/18/24 17:37
ED- Pulmonary Assessment Last Done: 12/18/24 17:37
Discharge Date and Time
Discharge Date/Time: 12/18/24 20:15
Print Language: KOREAN
[2024-12-18] MEDS: MORPHINE SULFATE 4 MG IV (18:05)
[2024-12-18 19:17] LABS: COVID-19 Antigen Negative (Negative)
== END 2024-12-18 20:15 | disposition home or self-care (01) ==
LOC: EMR 15:05
PROVIDERS: Emergency Medicine; EMERGENCY PHYSICIAN Student in an Organized Health Care Education/Training Program
DX: K59.00 Constipation, unspecified (principal); J43.9 Emphysema, unspecified; F41.8 Other specified anxiety disorders; D64.9 Anemia, unspecified; E11.9 Type 2 diabetes mellitus without complications; E78.00 Pure hypercholesterolemia, unspecified; Z85.3 Personal history of malignant neoplasm of breast; Z87.891 Personal history of nicotine dependence; Z90.49 Acquired absence of other specified parts of digestive tract; Z90.710 Acquired absence of both cervix and uterus; Z99.81 Dependence on supplemental oxygen
CPT/HCPCS: 99284; 94640; 96374; 71046; 74176; 80053; 83880; 85025; 85610; 87502; 87811; 93005

== ENCOUNTER 2025-03-06 13:35 | Inpatient (IN) | payer MEDICARE, SELFPAY ==
[2025-03-06] VITALS (39 sets, daily range): BP systolic 77–174; BP diastolic 47–105; PULSE 2–118; BMI 18.3; BMI 17.8
--- NOTE | 2025-03-06 11:19 | ED.GENMED ---
History of Present Illness
<Stephen Garza PA-C - Last Filed: 03/06/25 18:19>
General
Chief Complaint: Breathing Problem
Source: patient
Exam Limitations: none
Time Seen by Provider: 03/06/25 11:19
History of Present Illness
History of Present Illness:
70-year-old female presents with respiratory distress. She has history of COPD typically on 3 L of oxygen states over the past 2 to 3 days her breathing has gotten worse. She was dropped off by her son at the front of the ER and per triage nurse
was slumped over in her chair and brought back to room 39. Patient denies chest pain. She denies leg swelling. She [facility] with [facility] for her COPD and large hiatal hernia. No recent fever. She is not anticoagulated. She
has been using her inhaler without relief.
Past History
<Stephen Garza PA-C - Last Filed: 03/06/25 18:19>
Past History
ED Past Medical History: Asthma, Cancer (Remote history of breast cancer), COPD, NIDDM and Other (Chronic abdominal wall hernia, chronic abdominal pain, upper GI bleed January 2023, Chronic cough, Ulcers)
ED Past Surgical History: Cholecystectomy, Gynecological (Hysterectomy) and Other (left Lumpectomy)
Patient has exhibited threatening behavior?: No
PSI?: No
Social History
Tobacco: Former smoker
Alcohol: Occasional
Drug: None
Personal:
Living: with family
Employment: Retired
Family History
Family History: Other and Unable to obtain
Phy Exam
<Stephen Garza PA-C - Last Filed: 03/06/25 18:19>
Physical Exam
Physical Exam:
General: Well-developed female with mild to moderate respiratory distress
HEENT normocephalic atraumatic
Heart: Tachycardic but regular
Lungs: Diminished breath sounds diffuse wheeze
Extremities no edema or cyanosis
Abdomen: Large abdominal wall hernia but soft and nontender
Scores
<Stephen Garza PA-C - Last Filed: 03/06/25 18:19>
Heart Failure Risk
Heart Failure Risk Score: Not Applicable
Sepsis
<Stephen Garza PA-C - Last Filed: 03/06/25 18:19>
Sepsis Screening
Sepsis Assessment: Sepsis
Sepsis Screen
Sepsis Screen: Sepsis
Date: 03/06/25
Time: 18:19
Course
<Stephen Garza PA-C - Last Filed: 03/06/25 18:19>
Orders/Labs/Results
Orders:
Orders
03/06/25 11:13
IV Insert/Care/Rem.- Treatment PRN
CXR Port [CR Chest Portable - 1 View] Urgent
Comment:
Reason For Exam: sob
Reason Study Needs to be Portable: Patient Unstable
Bipap [RESP] Stat
Patient to use own unit?: No
Inspiratory Pressure (cm H2O): 10
Expiratory Pressure (cm H2O): 5
03/06/25 11:14
Electrocardiogram (*1) Stat
Reason for Study: Other
Other Reason for Exam: chest pain
Cardiac Monitoring- Treatment ONCE
EKG- Treatment ONCE
03/06/25 11:18
Albuterol Sulfate [Ventolin Nebules] 7.5 mg INH R NOW STA
Dexamethasone Sod Phosphate [Decadron] 10 mg IV NOW STA
Ipratropium/Albuterol Sulfate [Duoneb] 3 ml INH R NOW STA
03/06/25 11:33
Basic Metabolic Panel Urgent
COVID-19 Antigen Urgent
Source: Nasal Swab
Complete Blood Count/With Diff Urgent
Free T4 Urgent
NT-proBNP Urgent
TSH Reflex To Free T4 Urgent
Comment: ADD ON
Troponin I Urgent
Influenza A+B Rapid Molecular Urgent
JUANA Source: Nasal Swab
Specimen Description:
03/06/25 11:43
Azithromycin 500 mg/250 ml [Zithromax Infusion] 500 mg in 250 ml IV NOW
CefTRIAXone [Rocephin] 1,000 mg IV NOW STA
03/06/25 11:58
ABG [Arterial Blood Gas] Urgent
%Oxygen/Room Air: 4l
03/06/25 12:07
0.9% Sodium Chloride 1000 ml [Nss] 1,000 ml IV BOLUS
03/06/25 12:25
Ondansetron Injectable [Zofran] 4 mg IV NOW STA
03/06/25 12:26
Ondansetron Injectable [Zofran] 4 mg .ROUTE .[facility]
03/06/25 13:05
Add On- LAB Urgent
Tests Added?: tsh with free t4 reflex
03/06/25 13:07
Admit/Transfer Patient As Directed
Co-Sign Provider:
Level of Care: Inpatient admission
Assign to:: ICU
Physician / Group: christopher berry
Diagnosis: sepsis 2/2 jayashree pna,reps failure/A./Chron hypercarbia, [id number] depd
Reason for Hospitalization: sepsis 2/2 jayashree pna,reps failure/A./Chron hypercarbia, [id number] depd
Expected length of stay greater than two midnights?: Yes
ELOS- Estimated Length of Stay in days: 5
I certify the patient meets the requirements for IP care: Yes
Code Status As Directed
Resuscitation Status: Do not resuscitate
Reached after discussion with pt or family/Healthcare POA: Yes
Based on pt advanced directive or healthcare POA form: Yes
Decision communicated with: With patient
Physician note:: Patient reports for cardiac arrest would like to be DNR
for respiratory arrest once intubation
03/06/25 13:08
DNR Bracelet Application ONCE
03/06/25 13:18
PRN Pain Medication Management As Directed
May give lesser potent ordered pain med per pt: Yes
preference::
Protocol:: Medication orders for pain may be administered in a
manner that supports deferring to patient preference
when the pt is:
- Requesting an ordered lesser potent pain medication.
Least to most potent pain medications are defined
as: acetaminophen < NSAID < tramadol < opioids
(morphine, oxycodone, hydromorphone).
- Requesting a lesser dose of the same medication IF
ORDERED.
- Requesting a less intrusive route of administration
if both routes are prescribed by the provider (PO <
IV).
03/06/25 13:19
Code Status As Directed
Resuscitation Status: Full Code
Reached after discussion with pt or family/Healthcare POA: Yes
Based on pt advanced directive or healthcare POA form: Yes
Decision communicated with: With patient
Physician note:: Patient reports for cardiac arrest would like to be DNR
for respiratory arrest once intubation
03/06/25 13:32
Second Operator Consult Routine
Consulting Provider: Trish Danielle
Was physician already notified: Yes
Reason for consult: sepsis jayashree, hypoxic resp failure copd chron 3l/pred depe
03/06/25 Dinner
1800 calorie (15 carb) Diabetic
At Your Request: Limited Participation
03/06/25 15:07
Acetaminophen [Tylenol] 650 mg PO Q4HPRN PRN
CefTRIAXone [Rocephin] 1,000 mg IV Q24H
Dextrose 50%-Water [Dextrose 50% Syringe] 12.5 grams IV [id number] PRN
Glucagon [GlucaGen] 1 mg IM PRN PRN
Ondansetron Injectable [Zofran] 4 mg IV Q6HPRN PRN
levalbuterol tartrate [Xopenex HFA] 2 inh INH Q6H PRN
levocetirizine 5 mg PO DAILYPRN PRN
03/06/25 15:07
Activity As Directed
Activity Level: As Tolerated
Bedside Glucose Monitoring As Directed
Frequency: AC&HS
Additional Instructions:: Change to q6h if pt on TPN, tube feeding or not eating
Intake/ Output As Directed
Frequency: Per unit guidelines
Vital Signs As Directed
Frequency: Per unit guidelines
Weight As Directed
Frequency: Daily
Pulse Ox/spot Check [RESP] Routine
Quantity: 1
Pt Eval And Treat Routine
Activity Level: As Tolerated
DX Deep Vein Thrombosis Video Routine
03/06/25 16:30
Insulin Aspart Corrective Low [Novolog Flexpen-Low Resistance] See Protocol SC AC
03/06/25 18:00
Enoxaparin Sodium [Lovenox] 30 mg SC QPM
03/06/25 19:00
Dexamethasone Sod Phosphate [Decadron] 4 mg IV Q8H
03/06/25 20:00
Doxycycline [Vibramycin] 100 mg PO Q12
fluticasone propion-salmeterol [Advair Diskus] 1 inh INH R BID
ivabradine [Corlanor] 5 mg PO BID
03/06/25 22:00
Docusate Sodium [Colace] 100 mg PO HS
Montelukast Sodium [Singulair] 10 mg PO HS
Rosuvastatin Calcium [Crestor] 5 mg PO HS
Sennosides [Senokot] 8.6 mg PO HS
03/07/25 06:00
Complete Blood Count/With Diff IN AM
Comprehensive Metabolic Panel IN AM
Glycohemoglobin (HgbA1c) IN AM
03/07/25 08:00
Bupropion(24Hr)Extended Releas [WELLBUTRIN XL (24 hour extended release)] 300 mg PO DAILY
Linaclotide [Linzess] 145 mcg PO DAILY
Multivitamin [Theragran] 1 tablet PO DAILY
NIFEdipine EXTENDED RELEASE [Procardia Xl (Extended Release)] 30 mg PO DAILY
Tiotropium Alanson 2.5 Mcg [Spiriva Respimat 2.5 Mcg] DOSE puff INH R DAILY
vortioxetine [Trintellix] 20 mg PO DAILY
03/08/25 06:00
Complete Blood Count/With Diff IN AM
Comprehensive Metabolic Panel IN AM
03/09/25 06:00
Complete Blood Count/With Diff IN AM
Comprehensive Metabolic Panel IN AM
03/10/25 06:00
Complete Blood Count/With Diff IN AM
Comprehensive Metabolic Panel IN AM
Abnormal Lab Results
03/06/25 03/06/25
11:33 11:58
WBC 21.6 H 10^3/uL
(4.8-10.8)
RBC 3.94 L 10^6/uL
(4.20-5.40)
Hgb 11.4 L g/dL
(12.0-16.0)
MCHC 29.9 L g/dL
(33.0-37.0)
Abs Immat Gran (auto) 0.1 H 10^3/uL
(0-0.05)
Absolute Neuts (auto) 16.8 H 10^3/uL
(1.4-6.5)
Absolute Monos (auto) 1.4 H 10^3/uL
(0.1-0.6)
Neutrophils % 77.7 H %
(42.2-75.2)
Lymphocytes % 13.9 L %
(20.5-51.1)
pH 7.31 L
(7.35-7.45)
pCO2 78 H* mmHg
(32-35)
pO2 78 L mmHg
(83-108)
HCO3 39.3 H mmol/L
(21-28)
Chloride 95 L mmol/L
(98-107)
Carbon Dioxide 39 H mmol/L
(22-30)
Creatinine 0.5 L mg/dL
(0.6-1.0)
Glucose 195 H mg/dl
(70-99)
TSH (Reflex) 0.43 L uIU/ml
(0.47-4.68)
03/06/25 11:33
03/06/25 11:33
Vital Signs
Initial and Last Documented VS:
Initial Vital Signs
Temp Pulse Resp BP Pulse Ox
98.3 F 123 40 139/87 77
03/06/25 11:15 03/06/25 11:15 03/06/25 11:15 03/06/25 11:15 03/06/25 11:15
Last Documented Vital Signs
Temp Pulse Resp BP Pulse Ox
97.4 F 114 16 126/84 100
03/06/25 15:24 03/06/25 16:30 03/06/25 16:30 03/06/25 16:30 03/06/25 17:12
<Adalberto Horan MD - Last Filed: 03/06/25 15:32>
Orders/Labs/Results
Orders:
Orders
03/06/25 11:13
IV Insert/Care/Rem.- Treatment PRN
CXR Port [CR Chest Portable - 1 View] Urgent
Comment:
Reason For Exam: sob
Reason Study Needs to be Portable: Patient Unstable
Bipap [RESP] Stat
Patient to use own unit?: No
Inspiratory Pressure (cm H2O): 10
Expiratory Pressure (cm H2O): 5
03/06/25 11:14
Electrocardiogram (*1) Stat
Reason for Study: Other
Other Reason for Exam: chest pain
Cardiac Monitoring- Treatment ONCE
EKG- Treatment ONCE
03/06/25 11:18
Albuterol Sulfate [Ventolin Nebules] 7.5 mg INH R NOW STA
Dexamethasone Sod Phosphate [Decadron] 10 mg IV NOW STA
Ipratropium/Albuterol Sulfate [Duoneb] 3 ml INH R NOW STA
03/06/25 11:33
Basic Metabolic Panel Urgent
COVID-19 Antigen Urgent
Source: Nasal Swab
Complete Blood Count/With Diff Urgent
Free T4 Urgent
NT-proBNP Urgent
TSH Reflex To Free T4 Urgent
Comment: ADD ON
Troponin I Urgent
Influenza A+B Rapid Molecular Urgent
JUANA Source: Nasal Swab
Specimen Description:
03/06/25 11:43
Azithromycin 500 mg/250 ml [Zithromax Infusion] 500 mg in 250 ml IV NOW
CefTRIAXone [Rocephin] 1,000 mg IV NOW STA
03/06/25 11:58
ABG [Arterial Blood Gas] Urgent
%Oxygen/Room Air: 4l
03/06/25 12:07
0.9% Sodium Chloride 1000 ml [Nss] 1,000 ml IV BOLUS
03/06/25 12:25
Ondansetron Injectable [Zofran] 4 mg IV NOW STA
03/06/25 12:26
Ondansetron Injectable [Zofran] 4 mg .ROUTE .[facility]
03/06/25 13:05
Add On- LAB Urgent
Tests Added?: tsh with free t4 reflex
03/06/25 13:07
Admit/Transfer Patient As Directed
Co-Sign Provider:
Level of Care: Inpatient admission
Assign to:: ICU
Physician / Group: kristichristopher
Diagnosis: sepsis 2/2 jayashree pna,reps failure/A./Chron hypercarbia, [id number] depd
Reason for Hospitalization: sepsis 2/2 jayashree pna,reps failure/A./Chron hypercarbia, [id number] depd
Expected length of stay greater than two midnights?: Yes
ELOS- Estimated Length of Stay in days: 5
I certify the patient meets the requirements for IP care: Yes
Code Status As Directed
Resuscitation Status: Do not resuscitate
Reached after discussion with pt or family/Healthcare POA: Yes
Based on pt advanced directive or healthcare POA form: Yes
Decision communicated with: With patient
Physician note:: Patient reports for cardiac arrest would like to be DNR
for respiratory arrest once intubation
03/06/25 13:08
DNR Bracelet Application ONCE
03/06/25 13:18
PRN Pain Medication Management As Directed
May give lesser potent ordered pain med per pt: Yes
preference::
Protocol:: Medication orders for pain may be administered in a
manner that supports deferring to patient preference
when the pt is:
- Requesting an ordered lesser potent pain medication.
Least to most potent pain medications are defined
as: acetaminophen < NSAID < tramadol < opioids
(morphine, oxycodone, hydromorphone).
- Requesting a lesser dose of the same medication IF
ORDERED.
- Requesting a less intrusive route of administration
if both routes are prescribed by the provider (PO <
IV).
03/06/25 13:19
Code Status As Directed
Resuscitation Status: Full Code
Reached after discussion with pt or family/Healthcare POA: Yes
Based on pt advanced directive or healthcare POA form: Yes
Decision communicated with: With patient
Physician note:: Patient reports for cardiac arrest would like to be DNR
for respiratory arrest once intubation
03/06/25 13:32
Second Operator Consult Routine
Consulting Provider: Trish Danielle
Was physician already notified: Yes
Reason for consult: sepsis jayashree, hypoxic resp failure copd chron 3l/pred depe
03/06/25 Dinner
1800 calorie (15 carb) Diabetic
At Your Request: Limited Participation
03/06/25 15:07
Acetaminophen [Tylenol] 650 mg PO Q4HPRN PRN
CefTRIAXone [Rocephin] 1,000 mg IV Q24H
Dextrose 50%-Water [Dextrose 50% Syringe] 12.5 grams IV [id number] PRN
Glucagon [GlucaGen] 1 mg IM PRN PRN
Ondansetron Injectable [Zofran] 4 mg IV Q6HPRN PRN
levalbuterol tartrate [Xopenex HFA] 2 inh INH Q6H PRN
levocetirizine 5 mg PO DAILYPRN PRN
03/06/25 15:07
Activity As Directed
Activity Level: As Tolerated
Bedside Glucose Monitoring As Directed
Frequency: AC&HS
Additional Instructions:: Change to q6h if pt on TPN, tube feeding or not eating
Intake/ Output As Directed
Frequency: Per unit guidelines
Vital Signs As Directed
Frequency: Per unit guidelines
Weight As Directed
Frequency: Daily
Pulse Ox/spot Check [RESP] Routine
Quantity: 1
Pt Eval And Treat Routine
Activity Level: As Tolerated
DX Deep Vein Thrombosis Video Routine
03/06/25 16:30
Insulin Aspart Corrective Low [Novolog Flexpen-Low Resistance] See Protocol SC AC
03/06/25 18:00
Enoxaparin Sodium [Lovenox] 30 mg SC QPM
03/06/25 19:00
Dexamethasone Sod Phosphate [Decadron] 4 mg IV Q8H
03/06/25 20:00
Doxycycline [Vibramycin] 100 mg PO Q12
fluticasone propion-salmeterol [Advair Diskus] 1 inh INH R BID
ivabradine [Corlanor] 5 mg PO BID
03/06/25 22:00
Docusate Sodium [Colace] 100 mg PO HS
Montelukast Sodium [Singulair] 10 mg PO HS
Rosuvastatin Calcium [Crestor] 5 mg PO HS
Sennosides [Senokot] 8.6 mg PO HS
03/07/25 06:00
Complete Blood Count/With Diff IN AM
Comprehensive Metabolic Panel IN AM
Glycohemoglobin (HgbA1c) IN AM
03/07/25 08:00
Bupropion(24Hr)Extended Releas [WELLBUTRIN XL (24 hour extended release)] 300 mg PO DAILY
Linaclotide [Linzess] 145 mcg PO DAILY
Multivitamin [Theragran] 1 tablet PO DAILY
NIFEdipine EXTENDED RELEASE [Procardia Xl (Extended Release)] 30 mg PO DAILY
Tiotropium Alanson 2.5 Mcg [Spiriva Respimat 2.5 Mcg] DOSE puff INH R DAILY
vortioxetine [Trintellix] 20 mg PO DAILY
03/08/25 06:00
Complete Blood Count/With Diff IN AM
Comprehensive Metabolic Panel IN AM
03/09/25 06:00
Complete Blood Count/With Diff IN AM
Comprehensive Metabolic Panel IN AM
03/10/25 06:00
Complete Blood Count/With Diff IN AM
Comprehensive Metabolic Panel IN AM
Abnormal Lab Results
03/06/25 03/06/25
11:33 11:58
WBC 21.6 H 10^3/uL
(4.8-10.8)
RBC 3.94 L 10^6/uL
(4.20-5.40)
Hgb 11.4 L g/dL
(12.0-16.0)
MCHC 29.9 L g/dL
(33.0-37.0)
Abs Immat Gran (auto) 0.1 H 10^3/uL
(0-0.05)
Absolute Neuts (auto) 16.8 H 10^3/uL
(1.4-6.5)
Absolute Monos (auto) 1.4 H 10^3/uL
(0.1-0.6)
Neutrophils % 77.7 H %
(42.2-75.2)
Lymphocytes % 13.9 L %
(20.5-51.1)
pH 7.31 L
(7.35-7.45)
pCO2 78 H* mmHg
(32-35)
pO2 78 L mmHg
(83-108)
HCO3 39.3 H mmol/L
(21-28)
Chloride 95 L mmol/L
(98-107)
Carbon Dioxide 39 H mmol/L
(22-30)
Creatinine 0.5 L mg/dL
(0.6-1.0)
Glucose 195 H mg/dl
(70-99)
TSH (Reflex) 0.43 L uIU/ml
(0.47-4.68)
03/06/25 11:33
03/06/25 11:33
Vital Signs
Initial and Last Documented VS:
Initial Vital Signs
Temp Pulse Resp BP Pulse Ox
98.3 F 123 40 139/87 77
03/06/25 11:15 03/06/25 11:15 03/06/25 11:15 03/06/25 11:15 03/06/25 11:15
Last Documented Vital Signs
Temp Pulse Resp BP Pulse Ox
97.4 F 114 16 126/84 100
03/06/25 15:24 03/06/25 16:30 03/06/25 16:30 03/06/25 16:30 03/06/25 17:12
<Stephen Garza PA-C - Last Filed: 03/06/25 18:19>
MDM/Problems Addressed
Differential Diagnosis Includes:
Patient presented tachypneic with retractions and diminished breath sounds 77% on her 3 L at triage. She was placed on a nonrebreather and improved soon thereafter. Question COPD flare versus pneumothorax versus pneumonia
DuoNebs ordered steroid ordered. Portable chest x-ray was reviewed and is negative for pneumothorax or pleural effusion
Discussed with emergency room attending
<Stephen Garza PA-C - Last Filed: 03/06/25 18:19>
*Critical Care Note
Total Time (30-74mins, 75-104mins- exclusive of procedures): Not Applicable
<Stephen Garza PA-C - Last Filed: 03/06/25 18:19>
Update Note
Update Note:
Chest x-ray shows pneumonia. White blood cell count 21,000. Nebulizers were given. Given the white count tachycardia and pneumonia we will treat with Rocephin and Zithromax concern for possible sepsis as well. Fluids ordered. Will admit to
hospital. Case discussed with emergency room attending
<Adalberto Horan MD - Last Filed: 03/06/25 15:32>
Update Note
Update Note:
Chest x-ray shows pneumonia. White blood cell count 21,000. Nebulizers were given. Given the white count tachycardia and pneumonia we will treat with Rocephin and Zithromax concern for possible sepsis as well. Fluids ordered. Will admit to
hospital. Case discussed with emergency room attending
1223... Patient has been rechecked multiple times. Some continuous monitoring while in the room. At times seemed like she was improving but now seems slightly worse. Oxygen has dropped back down some. I have convinced her to try BiPAP which she
did not want to try earlier. However I am relatively suspicious that she will end up needing intubation. She did get a dose azithromycin. QT interval reasonable. Feel 1 dose of Zofran would be okay
ED Attending Note
<Stephen Garza PA-C - Last Filed: 03/06/25 18:19>
-
Portions of this chart may have been created with voice recognition software.� Occasional wrong word or��sound alike� substitutions may have occurred due to the inherent limitations of voice recognition software.
<Adalberto Horan MD - Last Filed: 03/06/25 15:32>
ED Attending Note
Patient seen and examined by attending physician: Yes
I performed the substantive portion of visit, reviewed & personally made and approve the management plan that is documented in note by myself or ALBERT.: Yes
ED Attending Note:
Patient with severe COPD. Chronic 4 L oxygen. Presents with increased hypoxia and shortness of breath. On arrival patient was in moderate respiratory distress using accessory muscles and lethargic. However improved with oxygen therapy. Patient
denies chest pain fever or other complaints.
On exam patient is old for stated age. Chronically ill-appearing. However alert able to speak. Warm and dry. Perfusing well. Mild tachypnea. Decreased breath sounds diffusely with mild expiratory wheezing and dry rales. Tachycardic and
regular. Abdomen nontender but a large abdominal wall hernia. Extremities are warm and dry and perfusing well.
Labs showing a EKG is stable. Chest x-ray with a infiltrate left upper lobe. No pneumothorax no heart failure. Leukocytosis.
Impression is COPD exacerbation with pneumonia. Nebs steroids careful oxygen therapy. ABG. Initially ordered BiPAP but patient seemed to improve. Some was contacted and discussed.
1345... Patient has been rechecked multiple times.. She is currently resting comfortably on the BiPAP O2 sats are 95%. However she is easily arousable awake asking for water. Appears improved at this time. However still tachypneic
critical care 45 minutes
Discharge Plan
Departure
Patient Disposition: Admit
Date of Disposition: 03/06/25
Time of Disposition: 12:09
Presentation/result/management discussed w/ accepting MD/DO: Hospitalist
Discharge Problem:
Pneumonia, COPD exacerbation
Interventions
Interventions:
*Risk Screen - Suicide Last Done: 03/06/25 11:15
*General Assessment Last Done: 03/06/25 11:15
*Neglect/Abuse Screening Last Done: 03/06/25 11:15
*ED- Fall Risk Assessment Last Done: 03/06/25 11:15
*ED COVID-19 Vaccine History Last Done: 03/06/25 11:15
*Nursing Disposition Last Done: 03/06/25 15:18
ED- Cardiac Assessment Last Done: 03/06/25 11:58
ED- Pulmonary Assessment Last Done: 03/06/25 11:58
Discharge Date and Time
Discharge Date/Time: 03/06/25 15:19
[2025-03-06] MEDS: DECADRON 10 MG IV (11:26)
[2025-03-06] MEDS: DUONEB 3 ML INH ×3 (11:28→19:38)
[2025-03-06] MEDS: VENTOLIN NEBULES 7.5 MG INH (11:28)
[2025-03-06 11:44] LABS: % Basophils 0.4 % (0-2); % Eosinophils 1.2 % (0-6); % Immature Granulocytes 0.5 % (0-0.5); % Lymphocytes 13.9 % (20.5-51.1); % Monocytes 6.3 % (1.7-9.3); % Neutrophils 77.7 % (42.2-75.2); Absolute Basophils 0.1 10^3/uL (0-0.2); Absolute Eosinophils 0.3 10^3/uL (0-0.7); Absolute Immature Granulocytes 0.1 10^3/uL (0-0.05); Absolute Monocytes 1.4 10^3/uL (0.1-0.6); Absolute Neutrophils 16.8 10^3/uL (1.4-6.5); Hematocrit 38.1 % (37.0-47.0); Hemoglobin 11.4 g/dL (12.0-16.0); Mean Corp Hgb Conc. 29.9 g/dL (33.0-37.0); Mean Corpuscular Hgb 28.9 pg (27.0-31.0); Mean Corpuscular Volume 96.7 fL (81.0-99.0); Mean Platelet Volume 9.6 fL (7.4-10.4); Nucleated Red Blood Cells % 0 %; Platelet Count 366 10^3/uL (130-400); Red Blood Cell Count 3.94 10^6/uL (4.20-5.40); Red Cell Dist. Width 13.7 % (11.5-14.5); White Blood Cell Count 21.6 10^3/uL (4.8-10.8)
[2025-03-06] MEDS: ZITHROMAX INFUSION 250 IV (11:49)
[2025-03-06] MEDS: ROCEPHIN 1000 MG IV (11:49)
[2025-03-06 12:00] LABS: Blood Urea Nitrogen 11 mg/dl (7-17); Calcium 9.6 mg/dl (8.4-10.2); Chloride 95 mmol/L (98-107); Estimated Creatinine Clearance 65 ml/min; Glucose 195 mg/dl (70-99); Potassium 4.8 mmol/L (3.5-5.1); Sodium 141 mmol/L (135-145); eGFR > 60.00
[2025-03-06 12:06] LABS: COVID-19 Antigen Negative (Negative)
[2025-03-06 12:08] LABS: Carbon Dioxide 39 mmol/L (22-30); NT-proBNP 50.8 pg/ml; Troponin I < 0.012 ng/ml
[2025-03-06 12:11] LABS: B.E. 10.4 mmol/L; HCO3 39.3 mmol/L (21-28); O2 Saturation % 96.4 % (94-98); PO2 78 mmHg (83-108); pH 7.31 (7.35-7.45)
[2025-03-06] MEDS: NSS 1000 IV (12:12)
[2025-03-06 12:16] LABS: PCO2 78 mmHg (32-35)
--- NOTE | 2025-03-06 12:26 | HPS.HSE ---
Family Physician
-
Family Physician:
Chief Complaint
-
Fever, shortness of breath x 2 to 3 days
History of Present Illness
70-year-old female with history of COPD on chronic 3 L nasal cannula has been complaining of increased shortness of breath over the last 2 to 3 days. She was dropped off by her son in the front of the ER slumped over in a chair and was brought back
to an emergency department room. He was noted to have a pulse oximetry of 77% on 4 L nasal cannula, she was then placed on a nonrebreather in the ER is currently 100%.. Patient is drowsy however she is oriented x 3 she tells me she has been
running a fever of 100 F has been taking Tylenol on and off over the past 2 to 3 days she has also had increased work of breathing despite 3 L of nasal cannula oxygen. She reports an occasional nonproductive cough. She denies headache, sore
throat, chest pain, palpitations, vomiting, diarrhea, urinary symptoms, recent illness, sick contacts. She reports she lives with her daughter Sofiya since her son had a stroke she does not use any assistive devices to walk.
She had chest x-ray showing pneumonia with elevated WBC count of 21,000. She follows at [facility] for COPD and a large hiatal hernia. She has other past medical history of former smoker, asthma, DM 2, chronic abdominal pain secondary to
large hiatal hernia, upper GI bleed January 2023, gastric ulcers, breast cancer with history left lumpectomy
Medical History
Past Medical History
Past Medical History: Reports Other
Additional Past Medical History:
Chronic hypoxic respiratory failure
COPD on chronic 3 L nasal cannula
Former smoker 50-year 1 to 2 pack a day stopped 2022
Asthma
History of DM2 used to be on meds states was off due to weight loss
Primary hypertension with hypothyroidism
Hyperlipidemia
History of breast cancer status post left lumpectomy surgery and chemotherapy
Large ventral hernia with chronic abdominal pain
Nonobstructive CAD
Upper GI bleed January 2023/gastric ulcers
Severe esophagitis
Severe anxiety
Sinus tachycardia
Past Surgical History: Reports Other
Additional Past Surgical History:
History of breast cancer status post left lumpectomy surgery and chemotherapy
Social History
Tobacco: Smoker (Used to smoke for 40 years. At its peak used to smoke 2 pack a day.)
Personal: Single
Living: With Family (Lives with daughter Sofiya)
Family History
Family History: Not pertinent
Allergies / Home Medications
Allergies reflects when Allergies were last updated in [facility].
Home Medications with original date entered in [facility]
Allergy/Medication List:
Allergies
Allergy/AdvReac Type Severity Reaction Status Date / Time
Iodinated Contrast Media Allergy Tongue Verified 12/18/24 15:26
Swelling
Iodine and Iodide Containing Allergy Tongue Verified 12/18/24 15:26
Produc Swelling
shellfish derived Allergy Tongue Verified 12/18/24 15:26
Swelling
aspirin AdvReac Nausea / Verified 12/18/24 15:26
Vomiting
Home Medications
bupropion HCl 300 mg 24 hr tablet, extended release 300 mg PO DAILY Mental Health/Anxiety 02/04/23
dexlansoprazole 60 mg capsule,biphase delayed release 60 mg PO DAILY Gastrointestinal issue 02/04/23
fluticasone 250 mcg-salmeterol 50 mcg/dose blistr powdr for inhalation (Advair Diskus) 1 inh inhalation R BID Lung/breathing issues 02/04/23
ivabradine 5 mg tablet (Corlanor) 5 mg PO BID Heart disease/condition 02/04/23
levocetirizine 5 mg tablet 5 mg PO DAILYPRN PRN allergies 02/04/23
linaclotide 145 mcg capsule (Linzess) 145 mcg PO DAILY Constipation 02/04/23
ondansetron HCl 8 mg tablet 8 mg PO Q8H nausea 02/04/23
rosuvastatin 5 mg tablet 5 mg PO HS High cholesterol 02/04/23
vortioxetine 20 mg tablet (Trintellix) 20 mg PO DAILY Mental Health/Anxiety 02/04/23
nifedipine 30 mg tablet,extended release 30 mg PO DAILY #30 tabs 02/12/23
sennosides 8.6 mg tablet (senna) 8.6 mg PO HS Constipation 05/31/23
alprazolam 2 mg tablet 2 mg PO QIDPRN PRN anxiety 02/01/24
acetaminophen 500 mg tablet (Tylenol Extra Strength) 1,000 mg PO Q6HPRN PRN mild pain 09/12/24
docusate sodium 100 mg capsule 100 mg PO HS Constipation 09/12/24
hydrocodone 7.5 mg-acetaminophen 325 mg tablet 1 tab PO BIDPRN PRN severe pain 09/12/24
montelukast 10 mg tablet 10 mg PO HS 09/12/24
therapeutic multivitamin 1 tab PO DAILY 09/12/24
tiotropium bromide 2.5 mcg/actuation mist for inhalation (Spiriva Respimat) 1 inh inhalation R DAILY 09/12/24
zolpidem 6.25 mg tablet,extended release,multiphase 6.25 mg PO HSPRN PRN sleep 09/12/24
doxycycline hyclate 100 mg capsule 100 mg PO Q12 2 days #4 caps 09/15/24
levalbuterol tartrate 45 mcg/actuation aerosol inhaler (Xopenex HFA) 2 inh inhalation Q6H PRN shortness of breath or wheezing #15 grams 09/15/24
prednisone 5 mg tablet 5 mg PO BID 03/06/25
Review of Systems
-
History Source: Patient
A 12 point ROS was completed and negative except as noted: Yes
Constitutional: Reports Fever (Reported 100 at home) and Fatigue; Denies Other
EENT: Denies Sore Throat or Runny Nose
Respiratory: Reports Cough (Nonproductive) and Trouble Breathing (With wheezing)
Cardiac: Denies Chest Pain, Diaphoresis, Palpitations or Syncope
Abdomen/GI: Reports Abdominal Pain (Chronic due to large abdominal hernia) and Nausea (Chronic); Denies Vomiting, Diarrhea, Constipated or Bloody Stools
: Denies Dysuria, Frequency, Flank Pain, Incontinence, Difficulty Voiding or Urgency
Musculoskeletal: Denies Joint Pain or Edema
Skin: Denies Itching or Rash
Neurological: Denies Dizzy or Headache
Endocrine: Reports No Symptoms
Hematologic/Lymphatic: Reports No Symptoms
Psych: Reports Calm
Physical Exam
Vital Signs
Vital Signs
Temp Pulse Resp BP Pulse Ox
98.3 F 123 29 139/87 100
03/06/25 11:15 03/06/25 11:17 03/06/25 11:17 03/06/25 11:16 03/06/25 11:17
Physical Exam
General: Other (Lethargic, drowsy but oriented x 3); No Pain, Fever or Chills
HEENT: NormoCephalic, Anicteric, Moist mucous membranes, PERRLA, [place] Conjunctivae, No Ptosis and Oxygen (Nasal BiPAP)
Respiratory: Wheezes (Expiratory bilaterally) and Decreased Breath Sounds (Throughout both lung retana); No Rales or Rhonchi
Cardiac: S1/S2 and Tachycardia (Sinus); No Murmur, Rub, Gallop or Peripheral Edema
Breast: Deferred by me
GI: Soft, Non Tender, Non Distended, Normal Bowel Sounds and Other (Chronic large ventral hernia/hiatal hernia)
Rectal: Deferred by Provider
Genito-urinary: Deferred by me
Musculoskeletal: No Clubbing, No Cyanosis and No Edema
Skin: Warm and Dry; No Rash or Jaundice
Neuro: No Motor Deficits, Nonfocal/grossly intact, Cranial Nerves Intact, No Sensory Deficits and Other (Drowsy but oriented to name, place, daughter and son, history); No Slurred Speech, Facial Droop, Tremors or Sedated
Psych: Calm
Laboratory Results
-
03/06/25 11:33
03/06/25 11:33
Laboratory Results
pH 7.31 (7.35-7.45) L 03/06/25 11:58
pCO2 78 mmHg (32-35) H* 03/06/25 11:58
pO2 78 mmHg (83-108) L 03/06/25 11:58
HCO3 39.3 mmol/L (21-28) H 03/06/25 11:58
Troponin I < 0.012 ng/ml 03/06/25 11:33
Data Reviewed
-
Diagnostic Radiology: Report Reviewed by me
Lab Data: Labs Reviewed by me
Impression/Plan
-
Impression/plan:
Admit to ICU
#Sepsis secondary to CARMELO Pneumonia
#Acute hypoxic respiratory failure 2/2 pneumonia/COPD exacerbation
#Acute on chronic hypercarbia requiring current nasal BiPAP
#Acute on chronic COPD 3 L nasal cannula/prednisone dependent
#Former smoker 50-year 1 to 2 pack a day stopped 2022
WBC 21 with left shift, temp 98.3 F, HR 123, 139/87
ABG 7.31, PO2 78, PCO2 78, CO3 39
COVID/influenza negative
Patient recently on doxycycline has 2 days left we will extend course of doxycycline
- Patient received total of 1250 cc bolus(1000 IV NSS, 250 cc in Zithromax dose)
- Continue IV Zithromax, IV Rocephin given in ER
-We will change to IV Rocephin and extend course doxycycline given history of nasal MRSA August 2024
- Sputum culture if cough becomes productive
-Consult Lining [employer]
-Decadron 10 mg given in ER will continue Decadron 4 mg every 8 hours(patient is on chronic prednisone 5 mg twice daily)
- Continue lev albuterol scheduled and as needed�Hx tachycardia
-Continue Advair
- Continue Spiriva daily
- Continue montelukast 10 mg at bedtime
CXR: New mild left upper lobe pneumonia
EKG: Sinus tach 145 bpm, QTc 472 MS no changes from prior November 2024
#Hx nasal MRSA 09/12/2024
#Chronic Sinus tachycardia
- Continue Corlanor 5 mg twice daily
#Chronic pain due to large ventral hernia on chronic oral opiates
- Patient follows at [facility]
- Patient takes hydrocodone 1 tab twice daily as needed severe pain will hold due to current lethargy
- Tylenol as needed mild pain
#Asthma hx no exacerbation
#History of DM2 used to be on meds states was off due to weight loss
-Blood sugar 195
-Accu-Cheks with SSI, check HgbA1c
#Primary hypertension
BP 139/87
-Continue nifedipine 30 mg daily
Hypothyroidism hx
- No thyroid meds listed will check TSH with free T4 reflex
#Hyperlipidemia
-Continue Crestor 5 mg at bedtime
#Nonobstructive CAD
2D echo 09/15/2024: EF 55-60%, normal LVS LVSF, no wall abnormality, aortic sclerosis without stenosis, mild/moderate TR normal PASP
Follows with [facility]
#Upper GI bleed January 2023/gastric ulcers
#Severe esophagitis
- Dexlansoprazole 60 mg daily will substitute for Protonix 40 mg daily
#Severe anxiety
- Continue Wellbutrin 300 mg daily, Trintellix 20 mg daily
-Hold Xanax 2 mg p.o. 4 times daily as needed anxiety due to sedation
#Chronic constipation
Patient on Linzess 145 mcg p.o. daily, continue senna 8.6 mg at bedtime
#Seasonal allergies
Continue levocetirizine 5 mg daily as needed
#Insomnia
Hold Ambien 6.25 mg at bedtime as needed
#History of breast cancer status post left lumpectomy surgery and chemotherapy
DVT prophylaxis
Subcu Lovenox
Full code per patient, Dr. Horan spoke with patient's son Don via phone
[2025-03-06] MEDS: ZOFRAN 4 MG IV (12:27)
--- NOTE | 2025-03-06 12:41 | PHANOTE ---
med rec note- called family on file who will be down shortly with medication list
--- NOTE | 2025-03-06 13:29 | W.PN.UPDATE ---
Update Note
Progress Note Update
This note serves as an addendum to the H&P by pet walker ALBERT
Maggie BOWMAN
I could not get any information from the patient due to Resp acuity
Information gathered by chart review and speaking with the ER staff.
HPI
70F Former smoker , HX f COPD on chronic 3 L nasal cannula O2 pw shortness of breath over the last 2 to 3 days.
- was dropped off by her son in the front of the ER slumped over in a chair and was brought back to an ER
- noted pulse oximetry of 77% on 4 L nasal cannula, then placed on a nonrebreather in the ER is currently 100%..
- CXR POS for pneumonia with elevated WBC count of 21,000.
- follows at [facility] for COPD and a large hiatal hernia.
PMHX significant for DM 2, chronic abdominal pain secondary to large hiatal hernia, upper GI bleed January 2023, gastric ulcers, breast cancer with history left lumpectomy
Reviewed VS: Afebrile, ST 120s, RR 40--> 30, Normotensive , POx 77 on 4 L --> 100 on nasal BiPAP
PE
Gen: on BiPAP with mask
HEENT: anicteric
Neck: supple
Lungs: symmetric AE
Cor: Tachycardic
Abdomen: large HH, soft
SURVEYOR HELPER ROD: lethargic but arousdable and appropriate
MS: no edema
Psych: limired due to waering BiPAP
Data
WCC 21.6 ( b/l 12s- 15s)
Hgb 11.4s at baseline. Nl MCV
AB.31/ pCO2 78/ pO2 78
Baseline CO2 30s- 38s
CXR
Findings suggesting a new mild left upper lobe pneumonia. Repeat exam in 2 weeks following treatment recommended to exclude an underlying mass. Clinical and laboratory correlation recommended as well.
09/16/24 TTE:
EF of 55 to 60%. Aortic sclerosis without stenosis. Mild to moderate tricuspid regurgitation. Normal PASP. Normal biventricular size and systolic function without regional wall motion abnormality.
Discussed with patient in detail. Patient understand her poor prognosis as with end-stage COPD. 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
Last hospitalist admission: Date of Admission: 09/12/24 - Date of Discharge: 09/15/24
Discharge Diagnosis/Procedures: Acute on chronic hypoxic respiratory failure secondary to COPD exacerbation, Constipation
ASSESSMENT & PLAN
Pending Rx reconciliation
Acute on chronic hypoxic hypercapnic respiratory failure secondary to COPD exacerbation
CXR POS LLL PNA complicated by sepsis
Ex-smoker
Chr O2 and PO prednisone depedent and HX chr leucocytotosis
- HX POS MRSA ( Aug 2024)
- No change in MS
- NEG COVID , NEG Flu
- on Nasal BiPAP support
- Repeat ABG in 3 Hrs
- agree with IV CFTZ and PO Doxy
- IV Decadron 4mg q8h
- Nebs Xopenex
- Check sputum culture if possible
- Continue Singulair, H1 sergo
- Hold OP Kamala Guallpaiva as OP
- She follows up with pulmonary at [place]
- Consult: ICU
Prior PMX
Benign Hypertension -continue nifedipine
Hyperlipidemia-continue statin
Depression and anxiety-continue Wellbutrin, Xanax and Trintellix
HX Insomnia-continue Ambien as needed
Chronic opiate dependence for pain
Chronic Constipation-Continue Colace/senna/Linzess
Severe esophagitis/peptic ulcer disease-continue PPI
HX Left breast cancer with surgery in the past
HX Large Ventral Hernia
DVT Px: LMWH
Full code per patient. 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
ICU
Total Critical Care Time__55___ minutes. I was immediately available to the patient and staff. I personally examined, reviewed labs, diagnostic images/reports, interpretations, treatment plans, discussed patient care with other providers and
family or caregivers (if patient is unable to make decisions), entered orders as appropriate and documented the medical record.
--- NOTE | 2025-03-06 14:40 | CON.INTV ---
Addendum entered and electronically signed by Trish Danielle MD 03/06/25 16:02:
Patient reexamined on BiPAP. Respiratory rate continue to stay between mid 30s to low 40s. Patient unable to complete a full sentence. Follow-up gas essentially unchanged.
Discussed with the patient who was agreeable to proceed with intubation due to persistent high work of breathing and tachypnea.
Patient intubated without difficulty. Please refer to separate procedure note.
Original Note:
Consultation
Consultation Request
Date/Time Consultation Requested: 03/06/2025
Date/Time Consultation Performed: 03/06/2025
Requesting Provider: Maggie Siegel
Performing Provider: Trish Danielle
Reason for Consultation: Pneumonia
Medical History
-
Chief Complaint: Shortness of breath
History of Present Illness:
Patient is a 70-year-old female with severe baseline COPD which is chronically oxygen dependent with chronic compensated hypercapnia which reportedly developed shortness of breath over the last few days. She was brought by her son and dropped off
in front of the ER where she was noted to be slumped in the chair and noted to be quite hypoxic in mid 70s on 4 L nasal cannula. Patient was placed on nonrebreather in the emergency room with improving and her oxygen saturation. Patient also noted
to have low-grade fever at home around 100 degree and was noted to have increased work of breathing. Further workup in the emergency room included a blood gas which showed mild worsening of her chronic compensated hypercapnia as well as elevated
WBC count along with concern for left upper lobe pneumonia. Patient follows up at [facility] for her underlying COPD as well as large hiatal hernia. She was started on BiPAP therapy, given Decadron along with antibiotics and was
admitted to ICU. Forklift Wheel Loader consultation was requested for further input.
Past Medical History
Past Medical History: Reports Other
Additional Past Medical History:
Chronic hypoxic respiratory failure
COPD on chronic 3 L nasal cannula
Former smoker 50-year 1 to 2 pack a day stopped 2022
Asthma
History of DM2 used to be on meds states was off due to weight loss
Primary hypertension with hypothyroidism
Hyperlipidemia
History of breast cancer status post left lumpectomy surgery and chemotherapy
Large ventral hernia with chronic abdominal pain
Nonobstructive CAD
Upper GI bleed January 2023/gastric ulcers
Severe esophagitis
Severe anxiety
Sinus tachycardia
Past Surgical History: Reports Other
Additional Past Surgical History:
History of breast cancer status post left lumpectomy surgery and chemotherapy
Social History
Tobacco: Smoker (Used to smoke for 40 years. At its peak used to smoke 2 pack a day.)
Personal: Single
Living: With Family (Lives with daughter Sofiya)
Family History
Family History: Not pertinent
Allergies / Home Medications
Allergies
Allergy/AdvReac Type Severity Reaction Status Date / Time
Iodinated Contrast Media Allergy Tongue Verified 12/18/24 15:26
Swelling
Iodine and Iodide Containing Allergy Tongue Verified 12/18/24 15:26
Produc Swelling
shellfish derived Allergy Tongue Verified 12/18/24 15:26
Swelling
aspirin AdvReac Nausea / Verified 12/18/24 15:26
Vomiting
Home Medications
�Medication �Instructions �Recorded �Confirmed �Last Taken �Type
bupropion HCl 300 mg 24 hr tablet, 300 mg PO DAILY Mental 02/04/23 09/12/24 04/06/24 08:00 History
extended release Health/Anxiety
dexlansoprazole 60 mg 60 mg PO DAILY Gastrointestinal 02/04/23 09/12/24 04/05/24 08:00 History
capsule,biphase delayed release issue
fluticasone 250 mcg-salmeterol 50 1 inh inhalation R BID 02/04/23 09/12/24 04/05/24 20:00 History
mcg/dose blistr powdr for Lung/breathing issues
inhalation (Advair Diskus)
ivabradine 5 mg tablet (Corlanor) 5 mg PO BID Heart disease/condition 02/04/23 09/12/24 04/06/24 08:00 History
levocetirizine 5 mg tablet 5 mg PO DAILYPRN PRN allergies 02/04/23 09/12/24 03/29/24 08:00 History
linaclotide 145 mcg capsule 145 mcg PO DAILY Constipation 02/04/23 09/12/24 04/06/24 08:00 History
(Linzess)
ondansetron HCl 8 mg tablet 8 mg PO Q8H nausea 02/04/23 09/12/24 04/05/24 20:00 History
rosuvastatin 5 mg tablet 5 mg PO HS High cholesterol 02/04/23 09/12/24 04/05/24 20:00 History
vortioxetine 20 mg tablet 20 mg PO DAILY Mental 02/04/23 09/12/24 04/05/24 08:00 History
(Trintellix) Health/Anxiety
nifedipine 30 mg tablet,extended 30 mg PO DAILY #30 tabs 02/12/23 09/12/24 04/06/24 08:00 Rx
release
sennosides 8.6 mg tablet (senna) 8.6 mg PO HS Constipation 05/31/23 09/12/24 04/05/24 08:00 History
alprazolam 2 mg tablet 2 mg PO QIDPRN PRN anxiety 02/01/24 09/12/24 04/05/24 20:00 History
acetaminophen 500 mg tablet 1,000 mg PO Q6HPRN PRN mild pain 09/12/24 09/12/24 Unknown History
(Tylenol Extra Strength)
docusate sodium 100 mg capsule 100 mg PO HS Constipation 09/12/24 09/12/24 Unknown History
hydrocodone 7.5 mg-acetaminophen 1 tab PO BIDPRN PRN severe pain 09/12/24 09/12/24 Unknown History
325 mg tablet
montelukast 10 mg tablet 10 mg PO HS 09/12/24 09/12/24 Unknown History
therapeutic multivitamin 1 tab PO DAILY 09/12/24 09/12/24 Unknown History
tiotropium bromide 2.5 1 inh inhalation R DAILY 09/12/24 09/12/24 Unknown History
mcg/actuation mist for inhalation
(Spiriva Respimat)
zolpidem 6.25 mg tablet,extended 6.25 mg PO HSPRN PRN sleep 09/12/24 09/12/24 Unknown History
release,multiphase
doxycycline hyclate 100 mg capsule 100 mg PO Q12 2 days #4 caps 09/15/24 Unknown Rx
levalbuterol tartrate 45 2 inh inhalation Q6H PRN shortness 09/15/24 Unknown Rx
mcg/actuation aerosol inhaler of breath or wheezing #15 grams
(Xopenex HFA)
prednisone 5 mg tablet 5 mg PO BID 03/06/25 Unknown History
Review of Systems
-
Respiratory: Cough and Trouble Breathing
Vitals / Labs / Diagnostic Testing
Vital Signs
Temp Pulse Resp BP Pulse Ox
98.3 F 117 45 120/77 98
03/06/25 11:15 03/06/25 14:00 03/06/25 14:00 03/06/25 14:00 03/06/25 14:00
Lab Data
03/06/25 11:33
03/06/25 11:33
Laboratory Results
03/06/25
11:58
pH 7.31 L
pCO2 78 H*
pO2 78 L
HCO3 39.3 H
O2 Delivery Level
Microbiology
03/06/25 11:33 Nasal Swab Influenza Types A & B (ROSANA) - Final
Negative for Influenza A & B, NAAT
Negative results must be combined with clinical observations
and patient history.
Nucleic Acid Amplification test (NAAT)performed on the
[employer] platform.
Diagnostic Testing:
Physical Exam
-
HEENT: Normocephalic
Cardiovascular: S1/S2 (Tachycardia in 120s)
Respiratory: Wheeze, Accessory Resp Muscle Use and Other (Patient is tachypneic breathing in the low to mid 30s.)
GI: Soft and Other (Ventral hernia noted, soft on exam.)
Neurology: Awake and Alert
General: Respiratory Distress (Mild respiratory distress on BiPAP) and Comfortable
Assessment
-
#1. Acute on chronic hypoxic and hypercapnic respiratory failure.
- Patient has baseline severe COPD with hypercapnia, oxygen and steroid-dependent with now new pneumonia as well as COPD exacerbation.
- Patient is currently on BiPAP and saturating around 91 to 92%. She reports feeling only marginally better. Respiratory rate is staying between mid to low 30s.
- Continue current management, follow-up on blood gas. Patient is at high risk of needing intubation and mechanical ventilation.
- CODE STATUS discussed with patient, she is agreeable to proceed with intubation if clinically indicated.
#2. Left upper lobe pneumonia.
- Influenza screen has been negative. COVID screen negative.
- Patient started on ceftriaxone and azithromycin, will add vancomycin considering severity of her illness as well as prior history of + MRSA screen
- Repeat nasal MRSA screen
- Check blood cultures, Legionella and pneumococcal urinary antigen
- Follow-up chest x-ray in a.m.
#3. Acute on chronic COPD exacerbation. Baseline steroid and oxygen dependence. She is on 10 mg prednisone every day.
- Continue DuoNeb every 6 scheduled
- Start budesonide nebulized twice daily
- As needed albuterol in addition
- Patient received Decadron in the emergency room, will continue Solu-Medrol 40 mg IV daily
- Continue antibiotics as above
- Prognosis is guarded. 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
#4. History of smoking.
- Currently not smoking
#5. Mild pulmonary hypertension. As reflected by echocardiogram with mildly elevated pulmonary artery Stolle pressure.
- Suspect it is group 3 related to severe underlying COPD exacerbation
- Keep oxygen saturation above 90%, optimize obstructive airway disease
Other medical diagnoses:
- Severe anxiety and insomnia
- Seasonal allergies
- Prior history of gastric ulcers in 2022
- Hypertension and hyperlipidemia
- Diabetes mellitus
- Chronic ventral abdominal wall hernia, chronic pain
- Hypothyroidism
DVT prophylaxis with subcu Lovenox
GI prophylaxis with Protonix
Critical Care time 68 mins -- The patient is admitted for acute critical illness for the treatment of vital organ failure and/or prevention of further life-threatening conditions. Total care includes time spent in review of history, physical exam,
medications, hemodynamic/ventilator parameters, laboratory data, imaging and discussion with house staff, pharmacy, respiratory therapy, diversified crops i farmworker, and nursing.
Data:
CXR : Findings suggesting a new mild left upper lobe pneumonia. Repeat exam in 2 weeks following treatment recommended to exclude an underlying mass. Clinical and laboratory correlation recommended as well.
ECHO 08/2024: Normal biventricular size and systolic function without regional wall motion
abnormality. Estimated LVEF 55-60%.
Aortic sclerosis without stenosis.
Mild/moderate tricuspid regurgitation. Normal PASP.
Compared to 02/06/23: TR has improved from moderate to mild/moderate. PASP has
decreased from 45 mmHg to [address] Chest 01/2023: No findings to confirm central pulmonary embolism.
Findings compatible with centrilobular type emphysema as well as some likely bilateral chronic interstitial changes.
No pneumothorax or pleural effusion.
[2025-03-06 15:16] LABS: TSH Reflex To Free T4 0.43 uIU/ml (0.47-4.68)
[2025-03-06 15:17] LABS: Glucose - Point of Care 145 mg/dl (70-99)
[2025-03-06 15:40] LABS: B.E. 11.5 mmol/L; O2 Saturation % 93.4 % (94-98); PO2 62 mmHg (83-108); pH 7.33 (7.35-7.45)
[2025-03-06 15:42] LABS: HCO3 40.1 mmol/L (21-28); PCO2 76 mmHg (32-35)
[2025-03-06 15:59] LABS: Free T4 1.14 ng/dl (0.78-2.19)
[2025-03-06] MEDS: SUBLIMAZE 100 IV (15:59)
[2025-03-06] MEDS: SUBLIMAZE 50 MCG IV ×3 (16:02→21:58)
--- NOTE | 2025-03-06 16:02 | OR.RPT ---
Operative Report
Operative Report
Rapid sequence intubation
Indication. Respiratory distress with tachypnea, respiratory rate around 40 on BiPAP.
Pre-medications: None
Patient was placed in Supine. BIPAP with 15 L O2 was used to preoxygenate, subsequently [id number] ventilation was applied. 15 mg of Etomidate was given as an induction agent followed by 50 mg of Rocuronium as paralytic. GlideScope was used,
blade size #3, grade 1 view of vocal cords was obtained and ET tube, 7.5, was advanced under direct visualization without any difficulty. Color change was confirmed and patient was bagged briefly and then connected to ventilator. Bilateral good
air entry noted. Tube was secured at 23 cm at the teeth. Patient tolerated the procedure well. Saturation prior to the procedure was 99%, it stayed 99% throughout the procedure.
Time spent: 25 min
Complications: None
Date of Service: 03/06/2025
[2025-03-06] MEDS: DIPRIVAN 100 IV (16:04)
[2025-03-06] MEDS: VANCOCIN 275 MG IV (16:06)
--- NOTE | 2025-03-06 16:20 | PTCARENOTE ---
Pt. arrived from ED on Bipap 10/5 6L. Mentating appropriately but drowsy.
RR in the 40-50s, bipap settings adjusted, repeat ABG.
Dr. Danielle bedside, ultimate decision was made to Intubate. Pt. consented to intubation.
7.5, Xray taken, tube needs to be backed out 2cm per respiratory. OG tube placed.
Diprivan/Fentanyl started.
--- NOTE | 2025-03-06 17:03 | PTCARENOTE ---
Pt. having increased RASS, CPOT, sedation/analgesic titrated per protocol see flow sheets.
Daughter updated on phone, enroute to ICU.
--- NOTE | 2025-03-06 17:21 | PTCARENOTE ---
Dr. Danielle bedside, verbal orders for NG tube/ RX placed.
[2025-03-06] MEDS: SOLU-MEDROL PF 40 MG IV (17:27)
[2025-03-06] MEDS: LOVENOX 30 MG SC (17:27)
[2025-03-06] MEDS: LR 500 IV (17:27)
[2025-03-06 17:29] LABS: B.E. 12.8 mmol/L; O2 Saturation % 99.6 % (94-98); PCO2 51 mmHg (32-35); PO2 190 mmHg (83-108); pH 7.48 (7.35-7.45)
--- NOTE | 2025-03-06 17:30 | PTCARENOTE ---
Office Assistance notified of Low SBP but maintaining map goals greater than 65.
500 LR bolus given.
--- NOTE | 2025-03-06 17:34 | PTCARENOTE ---
Vocational Psychologist made aware of low Urine OP, fluids ordered.
--- NOTE | 2025-03-06 17:38 | PHA.VAN.IN ---
Assessment
- Assessment
Renal Function: Appears similar to baseline
Concomitant Antimicrobials: ceftriaxone, doxycycline
AUC Dosing Plan
- Dosing Variables
Dosing Weight (kg): 45.5
Dosing CrCl (ml/min): 65
Vd coefficient (L/kg): 0.7
- Empiric Dosing
Initial / Loading Dose: vanc 1250mg administered @ 1606
Maintenance Regimen: vanc 500mg Q12H starting 03/07 0600
Estimated AUC (mcg*h/mL): 554
Estimated Peak (mcg*h/mL): 31.2
Estimated Trough (mcg/ml): 16.4
Estimated Half Life (H): 11.9
- Monitoring
No levels ordered at this time: consider levels in next few days
MRSA Screen: Ordered per protocol
Pharmacokinetics Vancomycin I
- -
Patient Age: 70
Patient Sex: Female
Vancomycin Day #: 1
Indication: Pulmonary/Respiratory
Requesting Provider: Dr. Danielle
Pertinent Antimicrobial Allergies:
no pertinent antimicrobial allergies
Height / Weight:
Height 5 ft 3 in
Actual Weight 45.5 kg
Pertinent Past Medical History: COPD on chronic oxygen, BMI ~18
- Vital Signs / Lab Results
Temp Pulse Resp BP Pulse Ox
97.4 F 114 16 126/84 100
03/06/25 15:24 03/06/25 16:30 03/06/25 16:30 03/06/25 16:30 03/06/25 17:12
Lab Results - Hematology
03/06/25
11:33
WBC 21.6 H
Lab Results - Chemistry
03/06/25
11:33
BUN 11
Creatinine 0.5 L
Estimated Creat Clear 65
Microbiology Results
03/06/25 11:33 Influenza Types A & B (ROSANA) - Final
Nasal Swab Negative for Influenza A & B, NAAT
Negative results must be combined with clinical observations
and patient history.
Nucleic Acid Amplification test (NAAT)performed on the
[employer] platform.
[2025-03-06 17:50] LABS: Triglycerides 86 mg/dl (10-149)
[2025-03-06 17:56] LABS: Glucose - Point of Care 153 mg/dl (70-99)
[2025-03-06] MEDS: NOVOLOG FLEXPEN-LOW RESISTANCE 1 UNITS SC (18:38)
[2025-03-06] MEDS: FLOVENT 110 MCG INHALER 4 PUFF INH (20:08)
[2025-03-06] MEDS: VIBRAMYCIN 100 MG TUBE (20:22)
[2025-03-06] MEDS: SINGULAIR 10 MG TUBE (20:22)
[2025-03-06] MEDS: CRESTOR 5 MG TUBE (20:23)
[2025-03-06] MEDS: SENOKOT 8.6 MG TUBE (20:23)
[2025-03-06] MEDS: COLACE LIQUID 100 MG TUBE (20:23)
[2025-03-06] MEDS: LR 1000 IV (22:56)
[2025-03-07] VITALS (16 sets, daily range): BP systolic 76–126; BP diastolic 54–80; BMI 17.8
--- NOTE | 2025-03-07 00:02 | W.PN.UPDATE ---
Update Note
Progress Note Update
�
Procedure Note: Arterial Line�
� Left Wrist Arrow 20 (12/30)�
Diagnosis:��PNA and acute COPD exacerbations
IV Line Comments: Uneventful Procedure�
Yang's test completed pre-procedure: Yes�
A-Line Comments: Sterile technique as per standard protocol, Ultrasound guided insertion�
Functioning A-line in situ: Yes�
A-line Insertion Start Time:��2330
A-line in at:��2345
[2025-03-07 00:20] LABS: Glucose - Point of Care 89 mg/dl (70-99)
[2025-03-07] MEDS: NOVOLOG FLEXPEN-LOW RESISTANCE SC ×3 (00:22→17:18)
--- NOTE | 2025-03-07 00:30 | PTCARENOTE ---
Pt intubated/sedated on prop/fent as ordered. Pt awakens to follow commands and drifts back to sleep. PRN Fent as needed for pain. Core temp 99.6, NSR/ST on monitor. Pulses palpable, no edema. #7.5 ett 20 lip, AC 380/15/40%/5. NPO status. OGT LIWS,
known hiatal hernia noted, very obvious. Pt c/o pain in that area. Villarreal placed for bladder scan 720ml. Draining clear, yellow urine. Skin intact.
[2025-03-07] MEDS: SUBLIMAZE 50 MCG IV ×3 (01:23→19:41)
[2025-03-07 04:16] LABS: B.E. 11.4 mmol/L; HCO3 36.4 mmol/L (21-28); O2 Saturation % 98.8 % (94-98); PCO2 50 mmHg (32-35); PO2 120 mmHg (83-108); pH 7.47 (7.35-7.45)
[2025-03-07 04:29] LABS: % Basophils 0.4 % (0-2); % Eosinophils 0.3 % (0-6); % Immature Granulocytes 0.4 % (0-0.5); % Lymphocytes 23.7 % (20.5-51.1); % Monocytes 8.8 % (1.7-9.3); % Neutrophils 66.4 % (42.2-75.2); Absolute Basophils 0.1 10^3/uL (0-0.2); Absolute Immature Granulocytes 0.1 10^3/uL (0-0.05); Absolute Lymphocytes 3.3 10^3/uL (1.2-3.4); Absolute Monocytes 1.2 10^3/uL (0.1-0.6); Absolute Neutrophils 9.2 10^3/uL (1.4-6.5); Hematocrit 29.2 % (37.0-47.0); Mean Corp Hgb Conc. 30.8 g/dL (33.0-37.0); Mean Corpuscular Hgb 28.8 pg (27.0-31.0); Mean Corpuscular Volume 93.3 fL (81.0-99.0); Mean Platelet Volume 9.6 fL (7.4-10.4); Nucleated Red Blood Cells % 0 %; Platelet Count 282 10^3/uL (130-400); Red Blood Cell Count 3.13 10^6/uL (4.20-5.40); Red Cell Dist. Width 13.8 % (11.5-14.5); White Blood Cell Count 13.9 10^3/uL (4.8-10.8)
[2025-03-07 04:31] LABS: INR 0.99; PT 13.4 Sec (11.4-14.6)
[2025-03-07 04:32] LABS: APTT 26.9 Sec (23.4-35.0)
[2025-03-07 04:46] LABS: ALT (SGPT) 13 U/L (0-35); AST (SGOT) 18 U/L (14-36); Albumin 2.8 g/dl (3.5-5.0); Alkaline Phosphatase 59 U/L (38-126); Blood Urea Nitrogen 16 mg/dl (7-17); Calcium 8.4 mg/dl (8.4-10.2); Carbon Dioxide 38 mmol/L (22-30); Chloride 100 mmol/L (98-107); Estimated Creatinine Clearance 63 ml/min; Glucose 89 mg/dl (70-99); Magnesium 1.2 mg/dl (1.6-2.3); Phosphorus 2.8 mg/dl (2.5-4.5); Potassium 4.1 mmol/L (3.5-5.1); Sodium 138 mmol/L (135-145); Total Bilirubin 0.3 mg/dl (0.2-1.3); Total Protein 5.2 g/dl (6.3-8.2); eGFR > 60.00
[2025-03-07] MEDS: DIPRIVAN 100 IV ×4 (04:47→22:40)
[2025-03-07] MEDS: SUBLIMAZE 100 IV ×3 (04:47→22:40)
[2025-03-07] MEDS: VANCOCIN HCL 500 MG 100 IV ×2 (04:50→08:32)
[2025-03-07] MEDS: MAGNESIUM SULFATE 50 IV (06:30)
[2025-03-07] MEDS: LINZESS 145 MCG TUBE (06:50)
--- NOTE | 2025-03-07 07:16 | W.PN.INTV ---
Today's Communication / Plan
Recommendations
- Mag sulfate, IV 2 g
- Start tube feeding
- Continue mechanical ventilation, SAT SBT in a.m
- Change ventilator setting to 350/15/40%/5. Follow-up ABG and chest x-ray in a.m.
Assessment
-
Patient is a 70-year-old female with severe baseline COPD which is chronically oxygen dependent with chronic compensated hypercapnia which reportedly developed shortness of breath over the last few days. She was brought by her son and dropped off
in front of the ER where she was noted to be slumped in the chair and noted to be quite hypoxic in mid 70s on 4 L nasal cannula. Patient was placed on nonrebreather in the emergency room with improving and her oxygen saturation. Patient also noted
to have low-grade fever at home around 100 degree and was noted to have increased work of breathing. Further workup in the emergency room included a blood gas which showed mild worsening of her chronic compensated hypercapnia as well as elevated
WBC count along with concern for left upper lobe pneumonia. Patient follows up at [facility] for her underlying COPD as well as large hiatal hernia. She was started on BiPAP therapy, given Decadron along with antibiotics and was
admitted to ICU. Child Care Education Coordinator consultation was requested for further input. In view of persistent tachypnea and increased work of breathing, patient was intubated and mechanically ventilated on 03/06.
03/07. 121/74. 98% on 40% FiO2. Not on any pressors.
Current infusions, propofol, fentanyl, Ringer lactate at 50 mL/h
Fluid balance, -187 mL.
Hemoglobin 9, dropped from 11.4 yesterday, white count improved to 13.9. Normal platelet count
Blood gas this morning 7.47, 50, 120, on 380, 15, 40% and 5 of PEEP, volume assist-control.
BMP unremarkable except for chronically elevated bicarb at 38.
Magnesium low at 1.2
Pneumococcal and Legionella antigen negative. Cultures negative so far.
#1. Acute on chronic hypoxic and hypercapnic respiratory failure.
- Patient has baseline severe COPD with hypercapnia, oxygen and steroid-dependent with now new pneumonia as well as COPD exacerbation.
- Patient was initially placed on BiPAP, after about 3 hours, in view of persistent tachypnea, she was intubated and mechanically ventilated, 03/06.
- Mild respiratory alkalosis, change ventilator setting to volume assist-control, 350/15/40%/5. Follow-up ABG in 3 hours.
#2. Left upper lobe pneumonia.
- Influenza screen has been negative. COVID-19 screen negative.
- Continue vancomycin, Rocephin and Zithromax. Follow-up on MRSA screen as well as sputum culture. Follow-up blood cultures. Legionella and strep pneumococcal antigen negative
- Follow-up chest x-ray in a.m.
#3. Acute on chronic COPD exacerbation. Baseline steroid and oxygen dependence. She is on 10 mg prednisone every day.
- Continue DuoNeb every 6 scheduled
- Continue budesonide nebulized twice daily
- As needed albuterol in addition
- Patient received Decadron in the emergency room, will continue Solu-Medrol 40 mg IV daily
- Continue antibiotics as above
- Prognosis is guarded. 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
- Start tube feeding
#4. History of smoking.
- Currently not smoking
#5. Mild pulmonary hypertension. As reflected by echocardiogram with mildly elevated pulmonary artery Stolle pressure.
- Suspect it is group 3 related to severe underlying COPD exacerbation
- Keep oxygen saturation above 90%, optimize obstructive airway disease
Other medical diagnoses:
- Severe anxiety and insomnia
- Seasonal allergies
- Prior history of gastric ulcers in 2022
- Hypertension and hyperlipidemia
- Diabetes mellitus
- Chronic ventral abdominal wall hernia, chronic pain
- Hypothyroidism
DVT prophylaxis with subcu Lovenox
GI prophylaxis with Protonix
Critical Care time 48 mins -- The patient is admitted for acute critical illness for the treatment of vital organ failure and/or prevention of further life-threatening conditions. Total care includes time spent in review of history, physical exam,
medications, hemodynamic/ventilator parameters, laboratory data, imaging and discussion with house staff, pharmacy, respiratory therapy, canal boat captain, and nursing.
Data:
CXR : Findings suggesting a new mild left upper lobe pneumonia. Repeat exam in 2 weeks following treatment recommended to exclude an underlying mass. Clinical and laboratory correlation recommended as well.
ECHO 08/2024: Normal biventricular size and systolic function without regional wall motion
abnormality. Estimated LVEF 55-60%.
Aortic sclerosis without stenosis.
Mild/moderate tricuspid regurgitation. Normal PASP.
Compared to 02/06/23: TR has improved from moderate to mild/moderate. PASP has
decreased from 45 mmHg to [address] Chest 01/2023: No findings to confirm central pulmonary embolism.
Findings compatible with centrilobular type emphysema as well as some likely bilateral chronic interstitial changes.
No pneumothorax or pleural effusion.
Subjective Dataa
Subjective Data
Date of Service:
Date of Service: March 07, 2025
Subjective:
Patient currently intubated, mechanically ventilated and sedated.
Review of Systems
General: Unobtainable - Sedation
Genitourinary: Other
Objective Data
Data Reviewed
Vital Signs / I&O / Oxygen:
Vital Signs
Temp Pulse Resp BP Pulse Ox
99.8 F 96 15 121/74 98
03/07/25 05:00 03/07/25 06:30 03/07/25 06:30 03/07/25 06:00 03/07/25 06:30
Intake and Output
03/06/25 03/07/25 03/08/25
06:59 06:59 06:59
Intake Total 1468.0 / 1468.0
Output Total 1655 / 1655
Balance -187.0 / -187.0
SaO2 [A/C] 95
SaO2 98
Nasal Cannula flow liters per 4
minute
Physical Exam
General: Comfortable
HEENT: Normocephalic
Cardiovascular: S1-S2
Respiratory: Non-Labored Respirations and Other (Prolonged expiration. No wheezing this morning)
GI: Soft and Non Distended
Neurology: Other (Sedated however wakes up with little stimulation.)
Skin: Warm
Labs/Micro/Reports
Lab Data
03/07/25 03:53
03/07/25 03:53
Laboratory Results
03/06/25 03/06/25 03/06/25
11:58 15:32 17:22
PT
INR
APTT
pH 7.31 L 7.33 L 7.48 H
pCO2 78 H* 76 H* 51 H
pO2 78 L 62 L 190 H
HCO3 39.3 H 40.1 H* 38.0 H
O2 Delivery Level
03/07/25 03/07/25
03:53 04:00
PT 13.4
INR 0.99
APTT 26.9
pH 7.47 H
pCO2 50 H
pO2 120 H
HCO3 36.4 H
O2 Delivery Level
Microbiology
03/06/25 17:50 Urine Legionella Urinary Antigen - Final
Negative for Legionella pneumophila Serogroup 1 antigen.
A negative result does not rule out the possiblity of
Legionella infection due to other serogroups or species of
Legionella. Clinical correlation is recommended.
03/06/25 17:50 Urine Streptococcus pneumoniae Antigen (M - Final
Negative for Streptococcus pneumoniae antigen.
A negative result does not exclude infection with
Streptococcus pneumoniae. Clinical correlation is
recommended.
03/06/25 11:33 Nasal Swab Influenza Types A & B (ROSANA) - Final
Negative for Influenza A & B, NAAT
Negative results must be combined with clinical observations
and patient history.
Nucleic Acid Amplification test (NAAT)performed on the
[employer] NOW platform.
[2025-03-07] MEDS: MIRALAX 17 GRAMS TUBE (07:43)
[2025-03-07] MEDS: THERAGRAN 1 TABLET TUBE (07:43)
[2025-03-07] MEDS: NSS (PRESERVATIVE FREE) 10 ML IV (07:43)
[2025-03-07] MEDS: VIBRAMYCIN 100 MG TUBE ×2 (07:43→19:41)
[2025-03-07] MEDS: PROTONIX IV 40 MG IV (07:43)
[2025-03-07] MEDS: WELLBUTRIN REGULAR RELEASE 100 MG TUBE ×3 (07:43→22:40)
[2025-03-07] MEDS: SOLU-MEDROL PF 40 MG IV (07:43)
--- NOTE | 2025-03-07 08:02 | PHA.VAN.FU ---
Vancomycin Assessment / Plan
- Assessment
Renal Function: Stable
WBC's are: Trending Down
In the past 24 hrs, patient has been: Afebrile
Concomitant Antimicrobials: CEFTRIAXONE
- Dosing Plan
Adjust Regimen to: VANCO 1000 MG Q12
USING PREVIOUS DOSING DATA FROM 03/2023, PT WITH SIMILAR WEIGHT AND RENAL FUNCTION
VANCO 1000 MG Q12H PREDICTS: AUC (464), Peak (28.1), Trough (12.5)
- Monitoring Plan
No level(s) ordered at this time: CONSIDER LEVEL IN NEXT FEW DAYS
MRSA Screen: Ordered per protocol
- Follow Up
Pharmacy will continue to follow.
Vancomycin Follow UP
- -
Patient Age: 70
Patient Sex: Female
Vancomycin Day #: 2
Indication: Pulmonary/Respiratory
Requesting Provider: Dr. Danielle
Pertinent Antimicrobial Allergies:
no pertinent antimicrobial allergies
Height / Weight:
Height 5 ft 3 in
Actual Weight 45.5 kg
Pertinent Past Medical History: COPD on chronic oxygen, BMI ~18
- Vital Signs / Lab Results
Temp Pulse Resp BP Pulse Ox
99.8 F 96 15 121/74 94
03/07/25 07:00 03/07/25 06:30 03/07/25 06:30 03/07/25 06:00 03/07/25 07:45
Lab Results - Hematology
03/06/25 03/07/25
11:33 03:53
WBC 21.6 H 13.9 H
Lab Results - Chemistry
03/06/25 03/07/25
11:33 03:53
BUN 11 16
Creatinine 0.5 L 0.5 L
Estimated Creat Clear 65 63
Albumin 2.8 L
Microbiology Results
03/06/25 17:50 Legionella Urinary Antigen - Final
Urine Negative for Legionella pneumophila Serogroup 1 antigen.
A negative result does not rule out the possiblity of
Legionella infection due to other serogroups or species of
Legionella. Clinical correlation is recommended.
03/06/25 17:50 Streptococcus pneumoniae Antigen (M - Final
Urine Negative for Streptococcus pneumoniae antigen.
A negative result does not exclude infection with
Streptococcus pneumoniae. Clinical correlation is
recommended.
03/06/25 11:33 Influenza Types A & B (ROSANA) - Final
Nasal Swab Negative for Influenza A & B, NAAT
Negative results must be combined with clinical observations
and patient history.
Nucleic Acid Amplification test (NAAT)performed on the
[employer] platform.
--- NOTE | 2025-03-07 08:05 | PTCARENOTE ---
Rec'd pt at 0700. Pt on prop/fent gtts on vent, pt initially appearing calm, then pt sitting bolt upright in bed, anxious and banging hands on siderails. Nodded 'no' to having pain, Propofol adjusted for RASS. Pt calmer, opens eyes, nods
appropriately, follows simple commands. Monitor SR/ST. Lungs dim/sct coarse, pox 95% on 40% fio2. Pt desaturated to 84% with repositioning/turning with mod-long recovery period. +BS, abd soft/nt. OGT to LIWS. Villarreal draining lena urine. Pt's
daughter updated via phone.
[2025-03-07] MEDS: FLOVENT 110 MCG INHALER 4 PUFF INH ×2 (08:24→20:23)
[2025-03-07] MEDS: DUONEB 3 ML INH ×4 (08:24→20:23)
[2025-03-07 08:27] LABS: Glycohemoglobin (HgbA1c) 6.5 % (4.0-5.6)
[2025-03-07] MEDS: ROCEPHIN 1000 MG IV (11:15)
[2025-03-07] MEDS: STERILE WATER FOR INJECTION 10 ML IV (11:15)
[2025-03-07 11:21] LABS: Glucose - Point of Care 183 mg/dl (70-99)
[2025-03-07] MEDS: NOVOLOG FLEXPEN-LOW RESISTANCE 1 UNITS SC (11:22)
[2025-03-07 11:35] LABS: B.E. 8.8 mmol/L; HCO3 35.5 mmol/L (21-28); O2 Saturation % 95.6 % (94-98); PCO2 60 mmHg (32-35); PO2 73 mmHg (83-108); pH 7.38 (7.35-7.45)
[2025-03-07 11:36] LABS: O2 Therapy 40
--- NOTE | 2025-03-07 11:53 | PTCARENOTE ---
Dr. Danielle notified of ABG results, no new orders. Assessment unchanged. Pt remains lightly sedate, awakens spontaneously, nods head appropriately to questions and follows simple commands. Appears less anxious at this time.
--- NOTE | 2025-03-07 14:15 | W.PN.HOSP.TC ---
Today's Communication/Plan
-
Monitor vitals
See plan
Wean vent as tolerated
Wean sedation as tolerated
Continue with antibiotics
Nebs
Assessment / Plan
Assessment / Plan
General: Intubated
HEENT: NormoCephalic, Anicteric, Moist mucous membranes
Respiratory: Ventilated breath sounds
Cardiac: S1/S2 and Tachycardia (Sinus); No Murmur, Rub, Gallop or Peripheral Edema
GI: Soft, Non Tender, Non Distended
Genito-urinary: Villarreal
Musculoskeletal: No Edema
Psych: sedation
Sepsis secondary to CARMELO Pneumonia
#Acute hypoxic respiratory failure 2/2 pneumonia/COPD exacerbation
#Acute on chronic hypercarbia
#Acute on chronic COPD 3 L nasal cannula/prednisone dependent
#Former smoker 50-year 1 to 2 pack a day stopped 2022
Initially was placed on BiPAP on admission, did not improve so was intubated.
COVID/influenza negative
Continue with antibiotics
Legionella and strep negative
Intubated 03/06. Continue to monitor, wean vent as tolerated
Continue with IV steroids
cw nebs
CXR: New mild left upper lobe pneumonia
EKG: Sinus tach 145 bpm, QTc 472 MS no changes from prior November 2024
#Hx nasal MRSA 09/12/2024
#Chronic Sinus tachycardia
- Continue Corlanor 5 mg twice daily
#Chronic pain due to large ventral hernia on chronic oral opiates
- Patient follows at [facility]
- Patient takes hydrocodone 1 tab twice daily as needed severe pain will hold due to current lethargy
- Tylenol as needed mild pain
#Asthma hx no exacerbation
#History of DM2 used to be on meds states was off due to weight loss
-Blood sugar 195
-Accu-Cheks with SSI, HgbA1c 6.5
#Primary hypertension
Hold nifedipine
Hypothyroidism hx
-Low TSH, normal free T4
#Hyperlipidemia
-Continue Crestor 5 mg at bedtime
#Nonobstructive CAD
2D echo 09/15/2024: EF 55-60%, normal LVS LVSF, no wall abnormality, aortic sclerosis without stenosis, mild/moderate TR normal PASP
Follows with [facility]
#Upper GI bleed January 2023/gastric ulcers
#Severe esophagitis
#Severe anxiety
- Continue Wellbutrin 300 mg daily, Trintellix 20 mg daily
-Hold Xanax 2 mg p.o. 4 times daily as needed anxiety; need final med rec
#Chronic constipation
Patient on Linzess 145 mcg p.o. daily, continue senna 8.6 mg at bedtime
#Seasonal allergies
Continue levocetirizine 5 mg daily as needed
#Insomnia
Hold Ambien 6.25 mg at bedtime as needed
#History of breast cancer status post left lumpectomy surgery and chemotherapy
DVT prophylaxis
Subcu Lovenox
Full code
Need med rec
I spent a total of 52 minutes with the patient or on the floor. More than 50% of this time involved counseling and coordination of care.
Anticipated Discharge: > 48 hours
Subjective/Interval History
-
Date of Service: March 07, 2025
intubated
Objective Data
-
Labs:
Laboratory Results
03/07/25 03/07/25 03/07/25
03:53 04:00 11:20
WBC 13.9 H
Hgb 9.0 L D
Hct 29.2 L
Plt Count 282 D
PT 13.4
INR 0.99
APTT 26.9
HCO3 36.4 H 35.5 H
Sodium 138
Potassium 4.1
Chloride 100
Carbon Dioxide 38 H
BUN 16
Creatinine 0.5 L
Glucose 89
Calcium 8.4
Total Bilirubin 0.3
AST 18
ALT 13
Alkaline Phosphatase 59
Vital Signs:
Vital Signs
Temp Pulse Resp BP Pulse Ox
98.9 F 105 15 94/59 93
03/07/25 11:55 03/07/25 13:00 03/07/25 13:00 03/07/25 12:00 03/07/25 13:00
I&O
03/06/25 03/07/25 03/08/25
06:59 06:59 06:59
Intake Total 1468.0 / 1539.0 573.8 / 573.8
Output Total 1655 / 1685 175 / 175
Balance -187.0 / -146.0 398.8 / 398.8
--- NOTE | 2025-03-07 15:51 | PTCARENOTE ---
No changes in assessment. Family in to visit, updated.
[2025-03-07] MEDS: VANCOCIN 200 IV (17:16)
[2025-03-07] MEDS: LOVENOX 30 MG SC (17:17)
[2025-03-07 17:19] LABS: Glucose - Point of Care 110 mg/dl (70-99)
--- NOTE | 2025-03-07 20:00 | PTCARENOTE ---
Received pt intubated and sedated on propofol and fentanyl gtts. Pt. easily awakens to verbal. Following commands, trying to make needs known. Nodding yes/no appropriately. Nodded yes to pain and CPOT>4- PRN fentanyl given. Restraints in place for
safety. SR/ST on tele, HR 90-100s. L radial A line transduced and zeroed. Normotensive. Temp 99.4. #7.5 ETT at 20cm moved to the center. Tolerating A/C 15/350/+5/40%. Spo2 98%. No desatting noted with turning. Lungs coarse and diminished throughout.
OG tube to LIWS. Hypoactive bowel sounds. Villarreal draining lena/yellow urine. See I&O. R AC with propofol and fentanyl gtts infusing. R wrist patent and capped.
Daughter at bedside - updated on plan of care.
[2025-03-07] MEDS: COLACE LIQUID 100 MG TUBE (22:40)
[2025-03-07] MEDS: SENOKOT 8.6 MG TUBE (22:40)
[2025-03-07] MEDS: SINGULAIR 10 MG TUBE (22:40)
[2025-03-07] MEDS: CRESTOR 5 MG TUBE (22:40)
[2025-03-07 23:35] LABS: Glucose - Point of Care 83 mg/dl (70-99)
[2025-03-08] VITALS (9 sets, daily range): BP systolic 103–139; BP diastolic 62–79; BMI 18.1
[2025-03-08] MEDS: NOVOLOG FLEXPEN-LOW RESISTANCE SC ×3 (00:04→17:25)
--- NOTE | 2025-03-08 00:43 | PTCARENOTE ---
Pt reassessed. Remains RASS -1 to 0. Calm and cooperative with care.
Tube feeding was ordered - osmolite 1.2 at 10ml/hr (goal 30ml/hr) with 25ml/hr h20 flush. Osmo started per orders via OG tube.
[2025-03-08] MEDS: SUBLIMAZE 50 MCG IV (02:03)
[2025-03-08 03:49] LABS: Venous Blood Gas B.E. 11.6 mmol/L (-4 to +4); Venous Blood Gas O2 Sat % 99.9 %; Venous Blood Gas pCO2 60 mmHg (35-48); Venous Blood Gas pH 7.41 (7.32-7.43); Venous Blood Gas pO2 197 mmHg (30-50)
[2025-03-08 03:54] LABS: % Basophils 0.4 % (0-2); % Eosinophils 0.4 % (0-6); % Immature Granulocytes 0.3 % (0-0.5); % Lymphocytes 25.6 % (20.5-51.1); % Monocytes 9.1 % (1.7-9.3); % Neutrophils 64.2 % (42.2-75.2); Absolute Basophils 0.1 10^3/uL (0-0.2); Absolute Eosinophils 0.1 10^3/uL (0-0.7); Absolute Lymphocytes 3.5 10^3/uL (1.2-3.4); Absolute Monocytes 1.2 10^3/uL (0.1-0.6); Absolute Neutrophils 8.8 10^3/uL (1.4-6.5); Hematocrit 28.4 % (37.0-47.0); Mean Corp Hgb Conc. 31.7 g/dL (33.0-37.0); Mean Corpuscular Hgb 29.5 pg (27.0-31.0); Mean Corpuscular Volume 93.1 fL (81.0-99.0); Mean Platelet Volume 9.3 fL (7.4-10.4); Nucleated Red Blood Cells % 0 %; Platelet Count 275 10^3/uL (130-400); Red Blood Cell Count 3.05 10^6/uL (4.20-5.40); Red Cell Dist. Width 13.5 % (11.5-14.5); White Blood Cell Count 13.6 10^3/uL (4.8-10.8)
[2025-03-08 04:29] LABS: ALT (SGPT) 20 U/L (0-35); AST (SGOT) 33 U/L (14-36); Alkaline Phosphatase 57 U/L (38-126); Blood Urea Nitrogen 10 mg/dl (7-17); Calcium 8.5 mg/dl (8.4-10.2); Carbon Dioxide 35 mmol/L (22-30); Chloride 96 mmol/L (98-107); Estimated Creatinine Clearance 63 ml/min; Glucose 100 mg/dl (70-99); Potassium 3.7 mmol/L (3.5-5.1); Sodium 135 mmol/L (135-145); Total Bilirubin 0.4 mg/dl (0.2-1.3); Total Protein 5.4 g/dl (6.3-8.2); eGFR > 60.00
[2025-03-08] MEDS: VANCOCIN 200 IV ×2 (05:30→17:20)
[2025-03-08] MEDS: LINZESS 145 MCG TUBE (05:30)
[2025-03-08] MEDS: DIPRIVAN 100 IV (05:30)
[2025-03-08] MEDS: ATIVAN 0.5 MG IV ×4 (05:53→22:40)
--- NOTE | 2025-03-08 05:54 | PTCARENOTE ---
Pt tapping on side rail, shaking head no to pain but trying to say 'I can't breathe.' Reminded pt she is on the vent, spo2 98%. Appears to be anxiety. MYLES Perkins notified - IV ativan ordered and administered.
[2025-03-08] MEDS: NSS (PRESERVATIVE FREE) 0.25 ML IV ×4 (06:00→22:40)
[2025-03-08] MEDS: SUBLIMAZE 100 IV (06:13)
[2025-03-08] MEDS: MIRALAX 17 GRAMS TUBE (07:36)
[2025-03-08] MEDS: VIBRAMYCIN 100 MG TUBE ×2 (07:36→22:15)
[2025-03-08] MEDS: PROTONIX IV 40 MG IV (07:36)
[2025-03-08] MEDS: SOLU-MEDROL PF 40 MG IV (07:36)
[2025-03-08] MEDS: NSS (PRESERVATIVE FREE) 10 ML IV (07:36)
[2025-03-08] MEDS: WELLBUTRIN REGULAR RELEASE 100 MG TUBE ×2 (07:36→16:30)
[2025-03-08] MEDS: THERAGRAN 1 TABLET TUBE (07:36)
[2025-03-08] MEDS: FLOVENT 110 MCG INHALER 4 PUFF INH (08:21)
[2025-03-08] MEDS: DUONEB 3 ML INH ×4 (08:21→21:02)
--- NOTE | 2025-03-08 08:25 | PTCARENOTE ---
Rec'd pt at 0700. Pt sedate on prop/fent gtts on vent. Opens eyes spontaneously, nods head appropriately to questions. Occas periods of restlessness, tapping hands on siderails. Pt has underlying anxiety, after discussion with Dr. Danielle order rec'd
to start pt on Precedex gtts in order to wean off sedation to do SBT. Lungs sct coarse, pox 98% on 40% fio2. +BS, OGT with Osmolite at 20mls/hr. Villarreal draining yellow urine.
[2025-03-08] MEDS: PRECEDEX 100 IV (08:37)
--- NOTE | 2025-03-08 08:59 | W.PN.HOSP.TC ---
Today's Communication/Plan
-
Monitor vital signs see plan
Wean vent as tolerated
Precedex added, wean sedation as tolerated
SBT possible today
Continue with antibiotics
Continue steroids, nebs
Assessment / Plan
Assessment / Plan
General: Intubated
HEENT: NormoCephalic, Anicteric, Moist mucous membranes
Respiratory: Ventilated breath sounds
Cardiac: S1/S2 and Tachycardia (Sinus); No Murmur, Rub, Gallop or Peripheral Edema
GI: Soft, Non Tender, Non Distended
Genito-urinary: Villarreal
Musculoskeletal: No Edema
Psych: sedation
Sepsis secondary to CARMELO Pneumonia
#Acute hypoxic respiratory failure 2/2 pneumonia/COPD exacerbation
#Acute on chronic hypercarbia
#Acute on chronic COPD 3 L nasal cannula/prednisone dependent
#Former smoker 50-year 1 to 2 pack a day stopped 2022
Initially was placed on BiPAP on admission, did not improve so was intubated.
COVID/influenza negative
Continue with antibiotics
Legionella and strep negative
Intubated 03/06. Continue to monitor, wean vent as tolerated. Wean sedation as tolerated. Precedex added. Possible SBT today
Continue with IV steroids
cw nebs
Villarreal per ICU
CXR: New mild left upper lobe pneumonia
EKG: Sinus tach 145 bpm, QTc 472 MS no changes from prior November 2024
#Hx nasal MRSA 09/12/2024
#Chronic Sinus tachycardia
- Continue Corlanor 5 mg twice daily
#Chronic pain due to large ventral hernia on chronic oral opiates
- Patient follows at [facility]
- Patient takes hydrocodone 1 tab twice daily as needed severe pain will hold due to current lethargy
- Tylenol as needed mild pain
#Asthma hx no exacerbation
#History of DM2 used to be on meds states was off due to weight loss
-Accu-Cheks with SSI, HgbA1c 6.5
#Primary hypertension
Hold nifedipine
Hypothyroidism hx
-Low TSH, normal free T4
#Hyperlipidemia
-Continue Crestor 5 mg at bedtime
#Nonobstructive CAD
2D echo 09/15/2024: EF 55-60%, normal LVS LVSF, no wall abnormality, aortic sclerosis without stenosis, mild/moderate TR normal PASP
Follows with [facility]
#Upper GI bleed January 2023/gastric ulcers
#Severe esophagitis
#Severe anxiety
- Continue Wellbutrin 300 mg daily, Trintellix 20 mg daily
-Xanax 2 mg p.o. 4 times daily as needed anxiety; will likely need this restarted after extubation
#Chronic constipation
Patient on Linzess 145 mcg p.o. daily, continue senna 8.6 mg at bedtime
#Seasonal allergies
Continue levocetirizine 5 mg daily as needed
#Insomnia
Hold Ambien 6.25 mg at bedtime as needed
#History of breast cancer status post left lumpectomy surgery and chemotherapy
DVT prophylaxis
Subcu Lovenox
Full code
Need final med rec once extubated; discussed with RN
I spent a total of 52 minutes with the patient or on the floor. More than 50% of this time involved counseling and coordination of care.
Anticipated Discharge: > 48 hours
Subjective/Interval History
-
Date of Service: March 08, 2025
Intubated
Objective Data
-
Labs:
Laboratory Results
03/08/25
03:40
WBC 13.6 H
Hgb 9.0 L
Hct 28.4 L
Plt Count 275
Sodium 135
Potassium 3.7
Chloride 96 L
Carbon Dioxide 35 H
BUN 10
Creatinine 0.5 L
Glucose 100 H
Calcium 8.5
Total Bilirubin 0.4
AST 33
ALT 20
Alkaline Phosphatase 57
Vital Signs:
Vital Signs
Temp Pulse Resp BP Pulse Ox
99.4 F 95 17 106/62 98
03/08/25 08:00 03/08/25 08:00 03/08/25 08:00 03/08/25 08:00 03/08/25 08:27
I&O
03/07/25 03/08/25 03/09/25
06:59 06:59 06:59
Intake Total 1468.0 / 1539.0 1680.9 / 1742.2 61.3 / 61.3
Output Total 1655 / 1685 1410 / 1560 150 / 150
Balance -187.0 / -146.0 270.9 / 182.2 -88.7 / -88.7
--- NOTE | 2025-03-08 09:17 | PHA.VAN.FU ---
Vancomycin Assessment / Plan
- Assessment
Renal Function: Stable
WBC's are: Stable
In the past 24 hrs, patient has been: Afebrile
Concomitant Antimicrobials: CEFTRIAXONE, DOXYCYCLINE
- Dosing Plan
Continue: VANCO 1000MG Q12H
- Monitoring Plan
Peak Level: 03/08 @2100
Trough Level: 03/09 @0530
- Follow Up
Pharmacy will continue to follow.
Vancomycin Follow UP
- -
Patient Age: 70
Patient Sex: Female
Vancomycin Day #: 3
Indication: Pulmonary/Respiratory
Requesting Provider: Dr. Danielle
Pertinent Antimicrobial Allergies:
no pertinent antimicrobial allergies
Height / Weight:
Height 5 ft 3 in
Actual Weight 46.4 kg
Pertinent Past Medical History: COPD on chronic oxygen, BMI ~18
- Vital Signs / Lab Results
Temp Pulse Resp BP Pulse Ox
99.4 F 105 15 106/62 97
03/08/25 08:00 03/08/25 09:00 03/08/25 09:00 03/08/25 08:00 03/08/25 09:00
Lab Results - Hematology
03/06/25 03/07/25 03/08/25
11:33 03:53 03:40
WBC 21.6 H 13.9 H 13.6 H
Lab Results - Chemistry
03/06/25 03/07/25 03/08/25
11:33 03:53 03:40
BUN 11 16 10
Creatinine 0.5 L 0.5 L 0.5 L
Estimated Creat Clear 65 63 63
Albumin 2.8 L 3.0 L
Microbiology Results
03/06/25 17:50 Blood Culture - Preliminary
Blood/Venous No Growth in 24 hours- Final report to follow
03/06/25 17:50 MRSA Screen - Final
Nose Staph aureus MRSA
03/07/25 09:46 Gram Stain - Preliminary
Sputum
03/06/25 17:50 Legionella Urinary Antigen - Final
Urine Negative for Legionella pneumophila Serogroup 1 antigen.
A negative result does not rule out the possiblity of
Legionella infection due to other serogroups or species of
Legionella. Clinical correlation is recommended.
03/06/25 17:50 Streptococcus pneumoniae Antigen (M - Final
Urine Negative for Streptococcus pneumoniae antigen.
A negative result does not exclude infection with
Streptococcus pneumoniae. Clinical correlation is
recommended.
03/06/25 11:33 Influenza Types A & B (ROSANA) - Final
Nasal Swab Negative for Influenza A & B, NAAT
Negative results must be combined with clinical observations
and patient history.
Nucleic Acid Amplification test (NAAT)performed on the
[employer] platform.
--- NOTE | 2025-03-08 09:40 | W.PN.INTV ---
Addendum entered and electronically signed by Trish Danielle MD 03/08/25 15:14:
Patient tolerated SAT/SBT well
Successfully extubated to nasal cannula, 03/08.
BiPAP as needed
Original Note:
Today's Communication / Plan
Recommendations
- Start Precedex, wean propofol and fentanyl
- SAT/SBT later today
Assessment
-
Patient is a 70-year-old female with severe baseline COPD which is chronically oxygen dependent with chronic compensated hypercapnia which reportedly developed shortness of breath over the last few days. She was brought by her son and dropped off
in front of the ER where she was noted to be slumped in the chair and noted to be quite hypoxic in mid 70s on 4 L nasal cannula. Patient was placed on nonrebreather in the emergency room with improving and her oxygen saturation. Patient also noted
to have low-grade fever at home around 100 degree and was noted to have increased work of breathing. Further workup in the emergency room included a blood gas which showed mild worsening of her chronic compensated hypercapnia as well as elevated
WBC count along with concern for left upper lobe pneumonia. Patient follows up at [facility] for her underlying COPD as well as large hiatal hernia. She was started on BiPAP therapy, given Decadron along with antibiotics and was
admitted to ICU. Origination Specialist consultation was requested for further input. In view of persistent tachypnea and increased work of breathing, patient was intubated and mechanically ventilated on 03/06.
Overview 03/08. 106/62. Saturating 97% on 40% FiO2. Patient not on any pressors
Current infusions, propofol, fentanyl and tube feeding
Fluid balance, -106 ml
Hemoglobin stable at 9. WBC count 13.6 and normal platelet count.
Venous blood gas 7.4, 60, 197 on volume assist-control 350/15/40%/5.
BMP unremarkable except for chronically elevated bicarb at 35.
Pneumococcal and Legionella antigen negative. Cultures negative so far. MRSA screen positive
#1. Acute on chronic hypoxic and hypercapnic respiratory failure.
- Patient has baseline severe COPD with hypercapnia, oxygen and steroid-dependent with now new pneumonia as well as COPD exacerbation.
- Patient was initially placed on BiPAP, after about 3 hours, in view of persistent tachypnea, she was intubated and mechanically ventilated, 03/06.
- Currently doing 1 on 350/15/40% and 5
- Start Precedex, begin to wean propofol and fentanyl, initiate SAT/SBT as tolerated
#2. Left upper lobe pneumonia.
- Influenza screen has been negative. COVID-19 screen negative.
- Continue vancomycin, Rocephin and doxycycline. F MRSA screen positive. Follow-up blood cultures. Legionella and strep pneumococcal antigen negative
- Follow-up chest x-ray stable
#3. Acute on chronic COPD exacerbation. Baseline steroid and oxygen dependence. She is on 10 mg prednisone every day at baseline.
- Continue DuoNeb every 6 scheduled
- Continue Flovent twice a day
- As needed albuterol in addition
- Currently on Solu-Medrol 40 daily
- Continue antibiotics as above
- Prognosis is guarded. 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
- Continue tube feeding
#4. History of smoking.
- Currently not smoking
#5. Mild pulmonary hypertension. As reflected by echocardiogram with mildly elevated pulmonary artery Stolle pressure.
- Suspect it is group 3 related to severe underlying COPD exacerbation
- Keep oxygen saturation above 90%, optimize obstructive airway disease
Other medical diagnoses:
- Severe anxiety and insomnia
- Seasonal allergies
- Prior history of gastric ulcers in 2022
- Hypertension and hyperlipidemia
- Diabetes mellitus
- Chronic ventral abdominal wall hernia, chronic pain
- Hypothyroidism
DVT prophylaxis with subcu Lovenox
GI prophylaxis with Protonix
Critical Care time 45 mins -- The patient is admitted for acute critical illness for the treatment of vital organ failure and/or prevention of further life-threatening conditions. Total care includes time spent in review of history, physical exam,
medications, hemodynamic/ventilator parameters, laboratory data, imaging and discussion with house staff, pharmacy, respiratory therapy, settlement agent, and nursing.
Data:
CXR : Findings suggesting a new mild left upper lobe pneumonia. Repeat exam in 2 weeks following treatment recommended to exclude an underlying mass. Clinical and laboratory correlation recommended as well.
ECHO 08/2024: Normal biventricular size and systolic function without regional wall motion
abnormality. Estimated LVEF 55-60%.
Aortic sclerosis without stenosis.
Mild/moderate tricuspid regurgitation. Normal PASP.
Compared to 02/06/23: TR has improved from moderate to mild/moderate. PASP has
decreased from 45 mmHg to [address] Chest 01/2023: No findings to confirm central pulmonary embolism.
Findings compatible with centrilobular type emphysema as well as some likely bilateral chronic interstitial changes.
No pneumothorax or pleural effusion.
Subjective Dataa
Subjective Data
Date of Service:
Date of Service: March 08, 2025
Subjective:
Patient currently intubated and sedated
Review of Systems
General: Unobtainable - Sedation
Genitourinary: Other
Objective Data
Data Reviewed
Vital Signs / I&O / Oxygen:
Vital Signs
Temp Pulse Resp BP Pulse Ox
99.4 F 105 15 106/62 97
03/08/25 08:00 03/08/25 09:00 03/08/25 09:00 03/08/25 08:00 03/08/25 09:00
Intake and Output
03/07/25 03/08/25 03/09/25
06:59 06:59 06:59
Intake Total 1468.0 / 1539.0 1680.9 / 1742.2 306.2 / 306.2
Output Total 1655 / 1685 1410 / 1560 450 / 450
Balance -187.0 / -146.0 270.9 / 182.2 -143.8 / -143.8
SaO2 [A/C] 100
SaO2 97
Nasal Cannula flow liters per 4
minute
Physical Exam
General: Comfortable
HEENT: Normocephalic
Cardiovascular: S1-S2
Respiratory: Non-Labored Respirations and Other (Prolonged expiration. No wheezing this morning)
GI: Soft and Non Distended
Neurology: Other (Sedated however wakes up with little stimulation.)
Skin: Warm
Labs/Micro/Reports
Lab Data
03/08/25 03:40
03/08/25 03:40
Laboratory Results
03/07/25
11:20
pH 7.38
pCO2 60 H
pO2 73 L
HCO3 35.5 H
O2 Delivery Level 40
Microbiology
03/06/25 17:50 Blood/Venous Blood Culture - Preliminary
No Growth in 24 hours- Final report to follow
03/06/25 17:50 Nose MRSA Screen - Final
Staph aureus MRSA
03/07/25 09:46 Sputum Gram Stain - Preliminary
03/06/25 17:50 Urine Legionella Urinary Antigen - Final
Negative for Legionella pneumophila Serogroup 1 antigen.
A negative result does not rule out the possiblity of
Legionella infection due to other serogroups or species of
Legionella. Clinical correlation is recommended.
03/06/25 17:50 Urine Streptococcus pneumoniae Antigen (M - Final
Negative for Streptococcus pneumoniae antigen.
A negative result does not exclude infection with
Streptococcus pneumoniae. Clinical correlation is
recommended.
03/06/25 11:33 Nasal Swab Influenza Types A & B (ROSANA) - Final
Negative for Influenza A & B, NAAT
Negative results must be combined with clinical observations
and patient history.
Nucleic Acid Amplification test (NAAT)performed on the
[employer] platform.
[2025-03-08 11:41] LABS: Glucose - Point of Care 174 mg/dl (70-99)
[2025-03-08] MEDS: NOVOLOG FLEXPEN-LOW RESISTANCE 1 UNITS SC (11:43)
[2025-03-08] MEDS: STERILE WATER FOR INJECTION 10 ML IV (11:46)
[2025-03-08] MEDS: ROCEPHIN 1000 MG IV (11:46)
[2025-03-08] MEDS: ZOFRAN 4 MG IV ×2 (13:41→19:40)
--- NOTE | 2025-03-08 14:03 | PTCARENOTE ---
Pt weaning on vent ~1hr, Dr. Danielle in to assess pt, pt alert and awake, slightly anxious. Following commands. Decision made to extubate. When setting pt up to extubate, pt began vomiting, OGT placed to suction and stomach drained ~200ml. 1300-pt
extubated to 4LNC, pox 93%. Pt stated that she still feels nauseous and that she usually has this issue from her large hernia. Pt also requesting Ativan for her anxiety. Dr. Danielle notified, PRN Zofran and Ativan ordered and given.
--- NOTE | 2025-03-08 14:49 | CM ---
Pt is intubated in ICU . Spoke with dgt Sofiya who said her mom lives with her at [address] [facility] [address] in a split level home with 0 steps to enter and 10 steps to bed bathroom.Patient is assisted with adl's. She uses a cane and walker
with ambulation. She has home oxygen with [employer].
She has had [facility] hx and [facility] hx
PCP: DR Allyson Bourgeois dgt is not sure if correct.
Pharmacy:[facility], [place].
Plan; Will need PT OT when appropriate for dc planning.
[2025-03-08] MEDS: LOVENOX 30 MG SC (17:19)
[2025-03-08 17:20] LABS: Glucose - Point of Care 134 mg/dl (70-99)
--- NOTE | 2025-03-08 18:07 | PTCARENOTE ---
Pt calm and cooperative, forgetful at times. Precedex gtts weaned off. Daughter in to visit, updated.
--- NOTE | 2025-03-08 20:00 | PTCARENOTE ---
Received pt resting in bed, AAOx3. Pt. c/o nausea and vomited 250ml green emesis. Zofran given with moderate relief. No more vomiting but c/o on and off mild nausea that is slowly improving. PO doxycycline due at 1999- GRILL CHEF notified we will hold for
now and reevaluate in the next couple hours if pt. able to take it PO. Pt ULLOA but gen. weak. SR/ST on tele, HR 90-110. L radial A line transduced and zeroed. BP 140s/70s but when anxious or nauseous, BP elevated to 170s/90s. PRN Ativan given for
anxiety. Afebrile. On 4L NC. Spo2 95%. Lungs diminished. Villarreal cath draining yellow urine. Hypoactive bowel sounds throughout. NPO except meds. Call jackson in reach.
[2025-03-08] MEDS: FLOVENT 110 MCG INHALER 2 PUFF INH (21:03)
[2025-03-08 21:23] LABS: Vancomycin Peak 21.6 ug/ml (18-26)
[2025-03-08] MEDS: SENOKOT TUBE (22:31)
[2025-03-08] MEDS: COLACE LIQUID TUBE (22:31)
[2025-03-08 23:20] LABS: Glucose - Point of Care 68 mg/dl (70-99)
[2025-03-08] MEDS: WELLBUTRIN REGULAR RELEASE TUBE (23:31)
[2025-03-08] MEDS: CRESTOR TUBE (23:31)
[2025-03-08] MEDS: SINGULAIR TUBE (23:31)
[2025-03-08 23:39] LABS: Glucose - Point of Care 70 mg/dl (70-99)
--- NOTE | 2025-03-08 23:41 | PTCARENOTE ---
Pt. able to slowly drink her doxycycline but refused other HS meds at this time due to 'stomach being upset.' No vomiting.
BG = 68. 4oz juice given, repeat = 70. Pt. asymptomatic. Will recheck q2h x2 per protocol.
HR was remaining elevated, 115-125 and BP occasionally up to 170s/90s. Pt c/o some anxiety despite previous ativan dose. SAND MIXER MACHINE notified. Extra 0.5mg ativan ordered and given with good effect. HR 100 and BP 130-140s/60s. Pt reports improvement.
[2025-03-09] VITALS (9 sets, daily range): BP systolic 114–171; BP diastolic 64–104; PULSE 116; O2SAT 98; BMI 17.8
[2025-03-09] MEDS: NOVOLOG FLEXPEN-LOW RESISTANCE SC ×4 (00:33→18:28)
[2025-03-09] MEDS: COMPAZINE 10 MG IV (01:06)
[2025-03-09 01:44] LABS: Glucose - Point of Care 113 mg/dl (70-99)
[2025-03-09 03:22] LABS: Glucose - Point of Care 98 mg/dl (70-99)
[2025-03-09 03:50] LABS: B.E. 12.6 mmol/L; HCO3 38.9 mmol/L (21-28); O2 Saturation % 99.5 % (94-98); PCO2 60 mmHg (32-35); PO2 122 mmHg (83-108); pH 7.42 (7.35-7.45)
[2025-03-09 04:05] LABS: % Basophils 0.4 % (0-2); % Eosinophils 0.2 % (0-6); % Immature Granulocytes 0.4 % (0-0.5); % Lymphocytes 19.5 % (20.5-51.1); % Monocytes 9.8 % (1.7-9.3); % Neutrophils 69.7 % (42.2-75.2); Absolute Basophils 0.1 10^3/uL (0-0.2); Absolute Immature Granulocytes 0.1 10^3/uL (0-0.05); Absolute Lymphocytes 2.5 10^3/uL (1.2-3.4); Absolute Monocytes 1.2 10^3/uL (0.1-0.6); Absolute Neutrophils 8.8 10^3/uL (1.4-6.5); Hematocrit 28.3 % (37.0-47.0); Hemoglobin 9.2 g/dL (12.0-16.0); Mean Corp Hgb Conc. 32.5 g/dL (33.0-37.0); Mean Corpuscular Hgb 28.9 pg (27.0-31.0); Mean Platelet Volume 9.1 fL (7.4-10.4); Nucleated Red Blood Cells % 0 %; Platelet Count 290 10^3/uL (130-400); Red Blood Cell Count 3.18 10^6/uL (4.20-5.40); Red Cell Dist. Width 13.3 % (11.5-14.5); White Blood Cell Count 12.6 10^3/uL (4.8-10.8)
[2025-03-09 04:30] LABS: ALT (SGPT) 32 U/L (0-35); AST (SGOT) 57 U/L (14-36); Albumin 3.2 g/dl (3.5-5.0); Alkaline Phosphatase 53 U/L (38-126); Blood Urea Nitrogen 7 mg/dl (7-17); Calcium 8.9 mg/dl (8.4-10.2); Carbon Dioxide 36 mmol/L (22-30); Chloride 94 mmol/L (98-107); Estimated Creatinine Clearance 64 ml/min; Glucose 86 mg/dl (70-99); Potassium 3.4 mmol/L (3.5-5.1); Sodium 134 mmol/L (135-145); Total Bilirubin 0.5 mg/dl (0.2-1.3); Total Protein 5.6 g/dl (6.3-8.2); Triglycerides 104 mg/dl (10-149); eGFR > 60.00
[2025-03-09] MEDS: KCL 270 MEQ IV (05:23)
[2025-03-09] MEDS: ZOFRAN 4 MG IV ×3 (05:24→19:50)
[2025-03-09] MEDS: LINZESS TUBE (05:31)
[2025-03-09 05:32] LABS: Glucose - Point of Care 81 mg/dl (70-99)
--- NOTE | 2025-03-09 05:33 | PTCARENOTE ---
Pt. having mild nausea again - zofran given. Pt refused linzess this AM.
K 3.4 - repletion ordered. Pt. c/o burning at IV site from KCl - slowed rate to 50ml/hr.
[2025-03-09] MEDS: ATIVAN 0.5 MG IV (06:11)
[2025-03-09] MEDS: NSS (PRESERVATIVE FREE) 0.25 ML IV (06:11)
[2025-03-09 06:45] LABS: Vancomycin Trough 11.5 ug/ml (5-20)
[2025-03-09] MEDS: DUONEB 3 ML INH ×4 (08:13→19:19)
[2025-03-09] MEDS: FLOVENT 110 MCG INHALER 2 PUFF INH ×2 (08:14→19:19)
[2025-03-09] MEDS: VANCOCIN 200 IV ×2 (08:17→18:06)
[2025-03-09] MEDS: SOLU-MEDROL PF 40 MG IV (08:18)
[2025-03-09] MEDS: NSS (PRESERVATIVE FREE) 10 ML IV (08:18)
[2025-03-09] MEDS: PROTONIX IV 40 MG IV (08:18)
--- NOTE | 2025-03-09 08:28 | W.PN.INTV ---
Today's Communication / Plan
Recommendations
Extubated on 03/08/2025
Change antibiotics from ceftriaxone to cefepime given recovered Pseudomonas aeruginosa in sputum culture
Patient has a history of MRSA screen positive, so continue with IV vancomycin for now; also on Doxy for atypical coverage
Consider narrowing antibiotics over the next 1-2 days depending if she clinically continues to improve
Continue DuoNebs + Flovent with eventual transition back to Advair + Spiriva
Stop PPI as stress ulcer prophylaxis currently not indicated
Up OOB as tolerated
PT/OT
Repeat CXR in 4 to 6 weeks to assure her pneumonia has improved/resolved
Anxiolytics prn
Patient is stable for downgrade to telemetry. Pulmonary service will continue to briefly follow along.
Assessment
-
Patient is a 70-year-old female with severe baseline COPD which is chronically oxygen dependent with chronic compensated hypercapnia which reportedly developed shortness of breath over the last few days. She was brought by her son and dropped off
in front of the ER where she was noted to be slumped in the chair and noted to be quite hypoxic in mid 70s on 4 L nasal cannula. Patient was placed on nonrebreather in the emergency room with improving and her oxygen saturation. Patient also noted
to have low-grade fever at home around 100 degree and was noted to have increased work of breathing. Further workup in the emergency room included a blood gas which showed mild worsening of her chronic compensated hypercapnia as well as elevated
WBC count along with concern for left upper lobe pneumonia. Patient follows up at [facility] for her underlying COPD as well as large hiatal hernia. She was started on BiPAP therapy, given Decadron along with antibiotics and was
admitted to ICU. Pe Manager consultation was requested for further input. In view of persistent tachypnea and increased work of breathing, patient was intubated and mechanically ventilated on 03/06.
#1. Acute on chronic hypoxic and hypercapnic respiratory failure.
- Patient has baseline severe COPD with hypercapnia, oxygen and steroid-dependent with now new pneumonia as well as COPD exacerbation.
- Patient was initially placed on BiPAP, after about 3 hours, in view of persistent tachypnea, she was intubated and mechanically ventilated, 03/06.
- Extubated yesterday and is breathing comfortably on 2 L/min nasal cannula
- Continue to wean down O2 as tolerated while keeping SpO2 at 88%�94%
- Would check an ambulatory pulse oximetry prior to discharge
#2. Left upper lobe pneumonia with sputum culture positive for Pseudomonas aeruginosa
- She also has a history of MRSA screen positive
- Influenza screen has been negative. COVID-19 screen negative.
- Continue vancomycin + Doxy; would change rocephin to cefepime; Follow-up blood cultures (shows NGTD); Legionella and strep pneumococcal antigen negative
- Ultimately we will need repeat CXR to assure her pneumonia has improved/resolved
#3. Acute on chronic COPD exacerbation. Baseline steroid and oxygen dependence. She is on 10 mg prednisone every day at baseline.
- Continue DuoNeb QID
- Continue Flovent twice a day
- Eventual TRX back to Advair
- As needed albuterol in addition
- Currently on Solu-Medrol 40 daily
- Continue antibiotics as above
- Prognosis is guarded. 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
#4. History of smoking.
- Currently not smoking
#5. Mild pulmonary hypertension. As reflected by echocardiogram with mildly elevated pulmonary artery Stolle pressure.
- Suspect it is group 3 related to severe underlying COPD exacerbation
- Keep oxygen saturation 88-94%, optimize obstructive airway disease
Other medical diagnoses:
- Severe anxiety and insomnia
- Seasonal allergies
- Prior history of gastric ulcers in 2022
- Hypertension and hyperlipidemia
- Diabetes mellitus
- Chronic ventral abdominal wall hernia, chronic pain
- Hypothyroidism
DVT prophylaxis: LMWH
GI prophylaxis with Protonix --> will stop given it is not indicated now that she is extubated and not in shock, and it is not a home med
Patient is stable for downgrade to telemetry. Pulmonary service will continue to briefly follow along.
Data:
CXR : Findings suggesting a new mild left upper lobe pneumonia. Repeat exam in 2 weeks following treatment recommended to exclude an underlying mass. Clinical and laboratory correlation recommended as well.
ECHO 08/2024: Normal biventricular size and systolic function without regional wall motion
abnormality. Estimated LVEF 55-60%.
Aortic sclerosis without stenosis.
Mild/moderate tricuspid regurgitation. Normal PASP.
Compared to 02/06/23: TR has improved from moderate to mild/moderate. PASP has
decreased from 45 mmHg to [address] Chest 01/2023: No findings to confirm central pulmonary embolism.
Findings compatible with centrilobular type emphysema as well as some likely bilateral chronic interstitial changes.
No pneumothorax or pleural effusion.
Total time spent today was 57 minutes for this encounter. Time includes reviewing laboratory test/imaging results, reviewing pertinent medical records, obtaining and reviewing medical history, performing an appropriate exam, ordering medications,
tests and procedures. Time also includes documentation of this encounter, coordinating patient care and communicating with other healthcare professionals. Total time does not include separately billed tests performed on this date of service.
Subjective Dataa
Subjective Data
Date of Service:
Date of Service: March 09, 2025
Chief Complaint: Pe Manager Follow Up
Subjective:
Patient was seen and evaluated today at bedside. She feels very anxious. She otherwise is breathing okay, denying SOB, cough, chest pain, RENTERIA, nausea, fevers or chills. Heart rate currently 130, saturating 94% on 2 L/min and BP 170/91.
Review of Systems
General: Other (Negative unless mentioned above)
Objective Data
Data Reviewed
Vital Signs / I&O / Oxygen:
Vital Signs
Temp Pulse Resp BP Pulse Ox
98.3 F 120 22 155/84 97
03/09/25 11:05 03/09/25 11:37 03/09/25 11:37 03/09/25 11:12 03/09/25 11:37
Intake and Output
03/08/25 03/09/25 03/10/25
06:59 06:59 06:59
Intake Total 1680.9 / 1742.2 701.0 / 1101.0 500 / 500
Output Total 1410 / 1560 1919 / 1979 340 / 340
Balance 270.9 / 182.2 -1219.0 / -879.0 160 / 160
SaO2 [A/C] 97
SaO2 97
Nasal Cannula flow liters per 3
minute
Physical Exam
General: Respiratory Distress (negative), Comfortable, Chills (negative) and Sweats (negative)
HEENT: Normocephalic and Anicteric
Cardiovascular: S1-S2, Peripheral Edema (negative) and Other (Tachycardic)
Respiratory: Clear, Wheeze (negative), Crackles (negative), Rhonchi (negative), Non-Labored Respirations and Other (Prolonged expiration)
GI: Soft, Non Distended, Non Tender and Normal Bowel Sounds
Neurology: AO x 3, Tremors (negative) and Other (Anxious)
Skin: Warm, Dry, Cyanosis (negative) and Jaundice (negative)
Labs/Micro/Reports
Lab Data
03/09/25 03:42
03/09/25 03:42
Laboratory Results
03/08/25 03/09/25
12:47 03:42
pH Cancelled 7.42
pCO2 Cancelled 60 H
pO2 Cancelled 122 H
HCO3 Cancelled 38.9 H
O2 Delivery Level Cancelled
Microbiology
03/07/25 09:46 Sputum Respiratory Culture - Final
Pseudomonas aeruginosa
03/07/25 09:46 Sputum Gram Stain - Final
03/06/25 17:50 Blood/Venous Blood Culture - Preliminary
No Growth in 48 hours- Final report to follow
03/06/25 17:50 Nose MRSA Screen - Final
Staph aureus MRSA
03/06/25 17:50 Urine Legionella Urinary Antigen - Final
Negative for Legionella pneumophila Serogroup 1 antigen.
A negative result does not rule out the possiblity of
Legionella infection due to other serogroups or species of
Legionella. Clinical correlation is recommended.
03/06/25 17:50 Urine Streptococcus pneumoniae Antigen (M - Final
Negative for Streptococcus pneumoniae antigen.
A negative result does not exclude infection with
Streptococcus pneumoniae. Clinical correlation is
recommended.
03/06/25 11:33 Nasal Swab Influenza Types A & B (ROSANA) - Final
Negative for Influenza A & B, NAAT
Negative results must be combined with clinical observations
and patient history.
Nucleic Acid Amplification test (NAAT)performed on the
[employer] platform.
--- NOTE | 2025-03-09 08:28 | PTCARENOTE ---
assumed care of pt. approx 0700.
Drowsy, but responsive answering questions.
Normotensive to hypertensive via Arterial line. Normothermic, pulses palpable.
Unable to stay alert enough for PO medications, plus offers complaints of N/V, w. hyperemesis noted by night team.
--- NOTE | 2025-03-09 08:34 | PHA.VAN.FU ---
Vancomycin Assessment / Plan
- Assessment
Renal Function: Stable
WBC's are: Trending Down
In the past 24 hrs, patient has been: Afebrile
- Assessment - Therapeutic Drug Monitoring
Extrapolated Cmax (mcg/mL): 26.2
Peak level was drawn: Appropriately
Extrapolated Cmin (mcg/mL): 11.7
Trough Drawn: Appropriately
Levels were drawn: At steady state
Calculated AUC (mcg*h/mL): 433
Calculated ke: 0.0737
Calculated half life (H): 9.4
Calculated Vd (L): 62.6
Calculated Vanc CL (ml/min): 76.92
- Dosing Plan
Continue: vancomycin 1000 mg q12h
- Monitoring Plan
Level(s) appropriate: Recheck trough at minimum of weekly intervals, Repeat sooner for changes in renal function or clinical status
- Follow Up
Pharmacy will continue to follow.
Vancomycin Follow UP
- -
Patient Age: 70
Patient Sex: Female
Vancomycin Day #: 4
Indication: Pulmonary/Respiratory
Requesting Provider: Dr. Danielle
Pertinent Antimicrobial Allergies:
no pertinent antimicrobial allergies
Height / Weight:
Height 5 ft 3 in
Actual Weight 45.5 kg
Pertinent Past Medical History: COPD on chronic oxygen, BMI ~18
- Vital Signs / Lab Results
Temp Pulse Resp BP Pulse Ox
99 F 109 30 114/64 96
03/09/25 03:18 03/09/25 08:15 03/09/25 08:15 03/09/25 04:00 03/09/25 08:31
Lab Results - Hematology
03/06/25 03/07/25 03/08/25
11:33 03:53 03:40
WBC 21.6 H 13.9 H 13.6 H
03/09/25
03:42
WBC 12.6 H
Lab Results - Chemistry
03/06/25 03/07/25 03/08/25
11:33 03:53 03:40
BUN 11 16 10
Creatinine 0.5 L 0.5 L 0.5 L
Estimated Creat Clear 65 63 63
Albumin 2.8 L 3.0 L
03/09/25
03:42
BUN 7
Creatinine 0.4 L
Estimated Creat Clear 64
Albumin 3.2 L
Microbiology Results
03/07/25 09:46 Respiratory Culture - Preliminary
Sputum Pseudomonas aeruginosa
Gram Stain - Preliminary
03/06/25 17:50 Blood Culture - Preliminary
Blood/Venous No Growth in 48 hours- Final report to follow
03/06/25 17:50 MRSA Screen - Final
Nose Staph aureus MRSA
Therapeutic Drug Monitoring
Vancomycin Peak 21.6 ug/ml (18-26) 03/08/25 20:58
Vancomycin Trough 11.5 ug/ml (5-20) 03/09/25 05:31
--- NOTE | 2025-03-09 09:08 | W.PN.HOSP.TC ---
Today's Communication/Plan
-
Transferred to telemetry
Remove Villarreal catheter
Speech therapy and statin and diet
Continue with PT treatments
Assessment / Plan
Assessment / Plan
Sepsis secondary to CARMELO Pneumonia
#Acute hypoxic respiratory failure 2/2 pneumonia/COPD exacerbation
#Acute on chronic hypercarbia
#Acute on chronic COPD 3 L nasal cannula/prednisone dependent
#Former smoker 50-year 1 to 2 pack a day stopped 2022
Initially was placed on BiPAP on admission, did not improve so was intubated 03/06. S/p extubation 03/08. Patient without any respiratory distress. Tolerating nasal cannula and oxygenating okay on 3 L which is her baseline.
COVID/influenza negative
Continue with antibiotics
Legionella and strep negative
Continue with IV steroids
cw nebs
DC Villarreal catheter
#Hx nasal MRSA 09/12/2024
#Chronic Sinus tachycardia
- Continue Corlanor 5 mg twice daily
#Chronic pain due to large ventral hernia on chronic oral opiates
- Patient follows at [facility]
- Patient takes hydrocodone 1 tab twice daily as needed severe pain will hold due to current lethargy
- Tylenol as needed mild pain
#History of DM2 used to be on meds states was off due to weight loss
-Accu-Cheks with SSI, HgbA1c 6.5
#Primary hypertension
Restart nifedipine
Hypothyroidism hx
-Low TSH, normal free T4
#Hyperlipidemia
-Continue Crestor 5 mg at bedtime
#Nonobstructive CAD
2D echo 09/15/2024: EF 55-60%, normal LVS LVSF, no wall abnormality, aortic sclerosis without stenosis, mild/moderate TR normal PASP
Follows with [facility] cardiology
#Upper GI bleed January 2023/gastric ulcers
#Severe esophagitis
#Severe anxiety
- Continue Wellbutrin 300 mg daily, Trintellix 20 mg daily
-Xanax 2 mg p.o. 4 times daily as needed anxiety; will likely need this restarted after extubation
#Chronic constipation
Patient on Linzess 145 mcg p.o. daily, continue senna 8.6 mg at bedtime
#Seasonal allergies
Continue levocetirizine 5 mg daily as needed
#Insomnia
Hold Ambien 6.25 mg at bedtime as needed
#History of breast cancer status post left lumpectomy surgery and chemotherapy
DVT prophylaxis
Subcu Lovenox
Full code
Transfer to telemetry
Discussed with AUTISM SPECIALIST
Total time spent on today's encounter was 52 minutes which included time spent in counseling the patient/family regarding diagnosis and treatment plan as listed above, goals of care, and symptom management. Case was discussed with nursing staff,
specialists, and care coordinators/case management. All labs and imaging personally reviewed by me. Remainder the time spent in detailed review of previous records, lab data, imaging, and other medical provider documentation.
Anticipated Discharge: > 48 hours
Subjective/Interval History
-
Date of Service: March 09, 2025
Patient is s/p extubation.
Denies shortness of breath at rest. Improved cough compared to preadmission. No chest pain or palpitation.
Patient has intermittent nausea at home which is chronic and attributes that to her abdominal hernia which has been there for more than a year and was not repaired due to her COPD issues. No obstruction of bowels in the past. Denies any diarrhea
or constipation.
She is alert and oriented.
She is from [place] but has been living with a daughter in [place] now.
Objective Data
-
Labs:
Laboratory Results
03/09/25
03:42
WBC 12.6 H
Hgb 9.2 L
Hct 28.3 L
Plt Count 290
HCO3 38.9 H
Sodium 134 L
Potassium 3.4 L
Chloride 94 L
Carbon Dioxide 36 H
BUN 7
Creatinine 0.4 L
Glucose 86
Calcium 8.9
Total Bilirubin 0.5
AST 57 H
ALT 32
Alkaline Phosphatase 53
Vital Signs:
Vital Signs
Temp Pulse Resp BP Pulse Ox
99 F 109 30 114/64 96
03/09/25 03:18 03/09/25 08:15 03/09/25 08:15 03/09/25 04:00 03/09/25 08:31
I&O
03/08/25 03/09/25 03/10/25
06:59 06:59 06:59
Intake Total 1680.9 / 1742.2 701.0 / 1101.0 400 / 400
Output Total 1410 / 1560 1920 / 1980 140 / 140
Balance 270.9 / 182.2 -1219.0 / -879.0 260 / 260
Review of Systems
-
Constitutional: Denies Fever
Abdomen/GI: Denies Abdominal Pain
Neuro: Denies Dizzy
Physical Exam
-
General: No Apparent Distress
HEENT: Moist Mucous Membranes
Respiratory: Non Labored Respirations and Decreased Breath Sounds (In general without any added soundstoday); Negative Accessory Resp Muscle Use
Cardiac: Regular Rhythm, S1/S2 and Tachycardic
GI: Soft, Nontender and Normal Bowel Sounds; Negative No Hernias (Ventral abdominal hernia-reducible and nontender)
Neuro: AO x 3
Data Reviewed
-
Labs: Labs Reviewed by me
[2025-03-09] MEDS: MIRALAX TUBE (09:41)
[2025-03-09] MEDS: VIBRAMYCIN TUBE (09:42)
[2025-03-09] MEDS: WELLBUTRIN REGULAR RELEASE TUBE (09:42)
[2025-03-09] MEDS: KCL ELIXIR 40 MEQ PO (09:57)
[2025-03-09] MEDS: WELLBUTRIN REGULAR RELEASE 100 MG PO ×3 (09:57→21:06)
[2025-03-09] MEDS: THERAGRAN TUBE (09:58)
[2025-03-09] MEDS: VIBRAMYCIN 100 MG PO ×2 (10:00→19:46)
--- NOTE | 2025-03-09 10:01 | PTCARENOTE ---
Pt downgraded telemetry, Art line D/C.
[2025-03-09] MEDS: ROCEPHIN 1000 MG IV (11:58)
[2025-03-09] MEDS: STERILE WATER FOR INJECTION 10 ML IV ×2 (11:58→18:08)
--- NOTE | 2025-03-09 12:03 | PTCARENOTE ---
Speech unable to cont. due to hyperemesis, hospitalist made aware, prn antiemetic given.
[2025-03-09 12:09] LABS: Glucose - Point of Care 103 mg/dl (70-99)
[2025-03-09] MEDS: XANAX 1 MG PO ×2 (13:20→21:03)
--- NOTE | 2025-03-09 14:05 | CM ---
CM following re: discharge planning.
Reviewed pt's chart, met with pt.
Pt is s/p extubation 03/08, was intubated 03/06 due to acute hypoxic respiratory failure, doing well, without any respiratory issues.
Pt lives in [facility] level home with 0 steps to enter and 10 steps to bed bathroom. Patient is assisted with ADL. She uses a cane and walker with ambulation. She has home oxygen with [employer] - 3-4 L NC at baseline.
PT and OT evaluations noted - SNF level of care recommended. Pt is aware, expressed her agreement. Pt stated she was at [facility] in the past, liked there very much and pt requested [facility].
A referral to [facility] made.
D/C plan: [facility] SNF when medically stable.
CM will follow with discharge plan updates as hospitalization progresses
--- NOTE | 2025-03-09 16:51 | PTCARENOTE ---
Speech cleared pt. for regular diet, awaiting physician orders.
--- NOTE | 2025-03-09 17:03 | PTOTSP ---
Dysphagia Eval
Patient with acute on chronic dysphagia risk factors (i.e., PNA and COPD exacerbation req. intubation 03/06-03/08; COPD, hernias). She reported occasional 'choking' on liquids prior to admission.
Recommend:
1. Regular, Thin
2. Medications as best tolerated
3. Upright to 90 degrees, small sips, slow rate, reflux precautions
4. Oral care 3x daily
5. Video swallow to r/o (silent) aspiration
--- NOTE | 2025-03-09 17:21 | PTCARENOTE ---
Hospitalist informed of HR in 140s. No new orders at this time.
[2025-03-09] MEDS: MAXIPIME 2000 MG IV (18:07)
[2025-03-09] MEDS: LOVENOX 30 MG SC (18:28)
[2025-03-09 18:29] LABS: Glucose - Point of Care 141 mg/dl (70-99)
--- NOTE | 2025-03-09 20:00 | PTCARENOTE ---
Patient received lying in bed, awake, alert and oriented visiting with family. She is without apparent signs of distress or discomfort. Noted that she is tachycardic on CM, ST 120-130s. as well as tachypneic. She denies CP or feelings of SOB. Sats
98% on 3L/nc. See community service worker charted on worklist/flowsheet. BBS diminished t/o with crackles audible RUL and expiratory wheezes t/o left. She c/o nausea, Zofran prn per order. She currently denies pain. Positive pulses x 4 extremities, no edema.
Bed in low and locked position. Call light is not functioning, phone at bedside with extension provided so that patient can call for assistance, patient also instructed that she may call out if needs help. Verbalized understanding.
[2025-03-09] MEDS: SINGULAIR 10 MG TUBE (21:06)
[2025-03-09] MEDS: SENOKOT 8.6 MG PO (21:06)
[2025-03-09] MEDS: CRESTOR 5 MG PO (21:06)
[2025-03-09] MEDS: COLACE LIQUID 100 MG PO (21:06)
[2025-03-09 21:07] LABS: Glucose - Point of Care 132 mg/dl (70-99)
[2025-03-09] MEDS: TYLENOL ORAL SOLUTION 650 MG PO (22:01)
[2025-03-10] VITALS: BP 113/66
[2025-03-10] MEDS: STERILE WATER FOR INJECTION 10 ML IV ×3 (01:47→18:13)
[2025-03-10] MEDS: MAXIPIME 2000 MG IV ×3 (01:47→18:12)
[2025-03-10] MEDS: ZOFRAN 4 MG IV ×4 (02:52→23:49)
[2025-03-10] MEDS: XANAX 1 MG PO ×4 (02:52→22:00)
[2025-03-10 04:00] VITALS: BP 113/64
[2025-03-10 04:31] VITALS: BMI 17.4
--- NOTE | 2025-03-10 05:45 | PTCARENOTE ---
Patient called stating she felt as if purewick didn't work as she has been repositioning self t/o night. Noted that she is saturated. Pericare and skin care rendered. Purewick changed and partial linen change. Am labs drawn. IV site right hand is
now leaking with IV ABx. IV team paged for new site.
[2025-03-10 06:29] LABS: % Basophils 0.6 % (0-2); % Immature Granulocytes 0.3 % (0-0.5); % Lymphocytes 19.3 % (20.5-51.1); % Monocytes 10.6 % (1.7-9.3); % Neutrophils 66.2 % (42.2-75.2); Absolute Basophils 0.1 10^3/uL (0-0.2); Absolute Eosinophils 0.3 10^3/uL (0-0.7); Absolute Lymphocytes 2.2 10^3/uL (1.2-3.4); Absolute Monocytes 1.2 10^3/uL (0.1-0.6); Absolute Neutrophils 7.6 10^3/uL (1.4-6.5); Hematocrit 34.8 % (37.0-47.0); Hemoglobin 10.7 g/dL (12.0-16.0); Mean Corp Hgb Conc. 30.7 g/dL (33.0-37.0); Mean Corpuscular Hgb 28.7 pg (27.0-31.0); Mean Corpuscular Volume 93.3 fL (81.0-99.0); Mean Platelet Volume 9.3 fL (7.4-10.4); Nucleated Red Blood Cells % 0 %; Platelet Count 351 10^3/uL (130-400); Red Blood Cell Count 3.73 10^6/uL (4.20-5.40); Red Cell Dist. Width 13.4 % (11.5-14.5); White Blood Cell Count 11.5 10^3/uL (4.8-10.8)
[2025-03-10] MEDS: VANCOCIN 200 IV (06:40)
[2025-03-10] MEDS: LINZESS 145 MCG PO (06:40)
[2025-03-10 06:41] LABS: ALT (SGPT) 30 U/L (0-35); AST (SGOT) 37 U/L (14-36); Albumin 3.1 g/dl (3.5-5.0); Alkaline Phosphatase 61 U/L (38-126); Blood Urea Nitrogen 10 mg/dl (7-17); Calcium 9.7 mg/dl (8.4-10.2); Carbon Dioxide 37 mmol/L (22-30); Chloride 100 mmol/L (98-107); Estimated Creatinine Clearance 61 ml/min; Glucose 120 mg/dl (70-99); Sodium 139 mmol/L (135-145); Total Bilirubin 0.5 mg/dl (0.2-1.3); Total Protein 5.6 g/dl (6.3-8.2); eGFR > 60.00
--- NOTE | 2025-03-10 07:25 | PTCARENOTE ---
Report given verbally to oncoming Jill carrion RN. Questions answered.
[2025-03-10] MEDS: DUONEB 3 ML INH ×2 (07:36→11:11)
[2025-03-10] MEDS: FLOVENT 110 MCG INHALER 2 PUFF INH ×2 (07:36→19:18)
[2025-03-10 08:00] VITALS: BP 125/82
[2025-03-10 08:10] LABS: Glucose - Point of Care 163 mg/dl (70-99)
[2025-03-10] MEDS: NOVOLOG FLEXPEN-LOW RESISTANCE 1 UNITS SC ×2 (08:26→12:30)
[2025-03-10] MEDS: NSS (PRESERVATIVE FREE) 10 ML IV (08:27)
[2025-03-10] MEDS: PROTONIX IV 40 MG IV (08:27)
[2025-03-10] MEDS: SOLU-MEDROL PF 40 MG IV (08:27)
[2025-03-10] MEDS: VIBRAMYCIN 100 MG PO (08:28)
[2025-03-10] MEDS: WELLBUTRIN REGULAR RELEASE 100 MG PO ×3 (08:28→22:00)
[2025-03-10] MEDS: THERAGRAN 1 TABLET TUBE (08:28)
[2025-03-10] MEDS: PROCARDIA XL (EXTENDED RELEASE) 30 MG PO (08:28)
--- NOTE | 2025-03-10 08:45 | PTCARENOTE ---
Assumed care of pt at 0715 following shift report. Pt resting quietly in bed, denies c/o pain or SOB. Pt incontinent of large amount urine despite use of Pure Wick. Pericare/hygiene provided. Pt assisted OOB to chair. Tolerated increased activity
w/o complication. Pt encouraged to notify staff and wait for assistance before attempting to get OOB- pt verbalized understanding/agreement. Safe environment maintained.
[2025-03-10] MEDS: MIRALAX PO (09:47)
--- NOTE | 2025-03-10 09:58 | PHA.VAN.FU ---
Vancomycin Assessment / Plan
- Assessment
Renal Function: Stable
WBC's are: Trending Down
In the past 24 hrs, patient has been: Afebrile
Concomitant Antimicrobials: cefepime, doxycycline
- Dosing Plan
Continue: Vanc 1000mg Q12H
- Monitoring Plan
Level(s) appropriate: Recheck trough at minimum of weekly intervals, Repeat sooner for changes in renal function or clinical status
Next Level Due (Date): ~03/16 - may consider sooner to assess for accumulation
- Follow Up
Pharmacy will continue to follow.
Vancomycin Follow UP
- -
Patient Age: 70
Patient Sex: Female
Vancomycin Day #: 5
Indication: Pulmonary/Respiratory
Requesting Provider: Dr. Danielle
Pertinent Antimicrobial Allergies:
no pertinent antimicrobial allergies
Height / Weight:
Height 5 ft 3 in
Actual Weight 44.6 kg
Pertinent Past Medical History: COPD on chronic oxygen, BMI ~18
- Vital Signs / Lab Results
Temp Pulse Resp BP Pulse Ox
97.9 F 111 26 125/82 98
03/10/25 08:00 03/10/25 08:28 03/10/25 07:38 03/10/25 08:28 03/10/25 07:38
Lab Results - Hematology
03/08/25 03/09/25 03/10/25
03:40 03:42 05:48
WBC 13.6 H 12.6 H 11.5 H
Lab Results - Chemistry
03/08/25 03/09/25 03/10/25
03:40 03:42 05:48
BUN 10 7 10
Creatinine 0.5 L 0.4 L 0.5 L
Estimated Creat Clear 63 64 61
Albumin 3.0 L 3.2 L 3.1 L
Microbiology Results
03/06/25 17:50 Blood Culture - Preliminary
Blood/Venous No Growth in 72 hours- Final report to follow
03/07/25 09:46 Respiratory Culture - Final
Sputum Pseudomonas aeruginosa
Gram Stain - Final
Therapeutic Drug Monitoring
Vancomycin Peak 21.6 ug/ml (18-26) 03/08/25 20:58
Vancomycin Trough 11.5 ug/ml (5-20) 03/09/25 05:31
--- NOTE | 2025-03-10 10:08 | PN.CDI ---
CDI
- -
CDI:
Physician Documentation Request
Admit Date: 03/06/25 13:35
Dear Doctor Benjamín,
Patient admitted for sepsis.
03/09 Medical Services Assistant PN: 'Acute on chronic hypoxic and hypercapnic respiratory failure. Patient has baseline severe COPD with hypercapnia, oxygen and steroid-dependent'
03/09 Hospitalist PN: 'Acute hypoxic respiratory failure 2/2 pneumonia/COPD exacerbation #Acute on chronic hypercarbia'
Please clarify the type and acuity of respiratory failure:
Acute on chronic hypoxic and hypercapnic respiratory failure
Acute hypoxic and acute on chronic hypercapnic respiratory failure
Other
Use of terms such as suspected, likely, concern for, or probable (associated with a specific diagnosis that is being evaluated, monitored, or treated as if it exists) are acceptable and can be coded in the inpatient setting, when documented at the
time of discharge.
Thank you,
Shraddha Soni RN, BSN
CDI Specialist
Available via [place] text
Please use your independent medical judgment in providing your response.
--- NOTE | 2025-03-10 10:50 | W.PN.PUL3 ---
Today's Communication / Plan
-
Extubated on 03/08/2025 --> breathing well on 2 L/min nasal
Check ambulatory pulse oximetry prior to discharge to reassess O2 needs
Continue with cefepime due to Pseudomonas aeruginosa recovered from sputum culture; DC vancomycin + Doxy
Would plan for at least 7-10 days of antibiotics total, counting the days since cefepime was started
Continue DuoNebs + Flovent with eventual transition back to Advair + Spiriva
Up OOB as tolerated
PT/OT
Repeat CXR in 4 to 6 weeks to assure her pneumonia has improved/resolved
Anxiolytics prn -recommend psychiatry consult as she takes 2 mg Xanax 4 times a day at home
Transition solumedrol to prednisone 30mg daily starting tomorrow ---> then continue weaning down by 10 mg every fifth day until back to home dose of 5 mg BID
No additional recommendations at this time. Pulmonary service will now sign off. Outpatient Pulmonary office follow-up will be arranged. Please reconsult if there are any additional questions/concerns, or if patient's respiratory status
deteriorates.
Assessment
-
Patient is a 70-year-old female with severe baseline COPD which is chronically oxygen dependent with chronic compensated hypercapnia which reportedly developed shortness of breath over the last few days. She was brought by her son and dropped off
in front of the ER where she was noted to be slumped in the chair and noted to be quite hypoxic in mid 70s on 4 L nasal cannula. Patient was placed on nonrebreather in the emergency room with improving and her oxygen saturation. Patient also noted
to have low-grade fever at home around 100 degree and was noted to have increased work of breathing. Further workup in the emergency room included a blood gas which showed mild worsening of her chronic compensated hypercapnia as well as elevated
WBC count along with concern for left upper lobe pneumonia. Patient follows up at [facility] for her underlying COPD as well as large hiatal hernia. She was started on BiPAP therapy, given Decadron along with antibiotics and was
admitted to ICU. Fiber Drier Operator consultation was requested for further input. In view of persistent tachypnea and increased work of breathing, patient was intubated and mechanically ventilated on 03/06.
#1. Acute on chronic hypoxic and hypercapnic respiratory failure.
- Patient has baseline severe COPD with hypercapnia, oxygen and steroid-dependent with now with acute pneumonia with a COPD exacerbation.
- Patient was initially placed on BiPAP, after about 3 hours, in view of persistent tachypnea, she was intubated and mechanically ventilated, 03/06.
- Extubated on 03/08 and continues to breath comfortably on 2 L/min nasal cannula
- Continue to wean down O2 as tolerated while keeping SpO2 at 88%�94%
- Would check an ambulatory pulse oximetry prior to discharge
#2. Left upper lobe pneumonia with sputum culture positive for Pseudomonas aeruginosa
- She also has a history of MRSA screen positive
- Influenza screen has been negative. COVID-19 screen negative.
- Continue with cefepime for Pseudomonas aeruginosa pneumonia s/p rocephin (03/06 - 03/09/2025); s/p IV vancomycin (03/06 - 03/10) + s/p doxycycline (03/06 - 03/10); Follow-up blood cultures (shows NGTD); Legionella and strep pneumococcal antigen negative
- Ultimately we will need repeat CXR in 4-6 antoine to assure her pneumonia has improved/resolved
#3. Acute on chronic COPD exacerbation. Baseline steroid and oxygen dependence. She is on 10 mg prednisone every day at baseline.
- Continue DuoNeb QID
- Continue Flovent twice a day
- Eventual TRX back to Advair
- Continue as needed albuterol
- Currently on Solu-Medrol 40 daily --> ok to transition down to prednisone 30mg daily starting tomorrow, then continue weaning down by 10 mg every fifth day until back to home dose of 5 mg BID
- Continue antibiotics as above
- Prognosis is guarded. 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
#4. History of smoking.
- Currently not smoking
#5. Mild pulmonary hypertension. As reflected by echocardiogram with mildly elevated pulmonary artery Stolle pressure.
- Suspect it is group 3 related to severe underlying COPD exacerbation
- Keep oxygen saturation 88-94%, optimize obstructive airway disease
Other medical diagnoses:
- Severe anxiety and insomnia --> takes 2mg xanax QID at home - this is a high dose; continue 1mg QID here, and recommend psych consult
- Seasonal allergies
- Prior history of gastric ulcers in 2022
- Hypertension and hyperlipidemia
- Diabetes mellitus
- Chronic ventral abdominal wall hernia, chronic pain
- Hypothyroidism
DVT prophylaxis: LMWH
GI prophylaxis: N/A, although continue PPI as she takes dexlansoprazole at home and has history of UGIB with gastric ulcers + severe esophagitis
No additional recommendations at this time. Pulmonary service will now sign off. Outpatient Pulmonary office follow-up will be arranged. Thank you for allowing us to be involved in the care of this patient. Please reconsult if there are any
additional questions/concerns, or if patient's respiratory status deteriorates.
Data:
CXR : Findings suggesting a new mild left upper lobe pneumonia. Repeat exam in 2 weeks following treatment recommended to exclude an underlying mass. Clinical and laboratory correlation recommended as well.
ECHO 08/2024: Normal biventricular size and systolic function without regional wall motion
abnormality. Estimated LVEF 55-60%.
Aortic sclerosis without stenosis.
Mild/moderate tricuspid regurgitation. Normal PASP.
Compared to 02/06/23: TR has improved from moderate to mild/moderate. PASP has
decreased from 45 mmHg to [address] Chest 01/2023: No findings to confirm central pulmonary embolism.
Findings compatible with centrilobular type emphysema as well as some likely bilateral chronic interstitial changes.
No pneumothorax or pleural effusion.
Total time spent today was 36 minutes for this encounter. Time includes reviewing laboratory test/imaging results, reviewing pertinent medical records, obtaining and reviewing medical history, performing an appropriate exam, ordering medications,
tests and procedures. Time also includes documentation of this encounter, coordinating patient care and communicating with other healthcare professionals. Total time does not include separately billed tests performed on this date of service.
Subjective Data
-
Date of Service:
Date of Service: March 10, 2025
Chief Complaint: Pulmonary Follow Up
Subjective:
Patient seen and evaluated this morning. Still feels anxious although she is on the phone speaking to a friend/family member and is in no acute distress. Currently, heart rate 136, BP 132/102 and saturating 97% on 2 L/min. She says she has been
breathing okay with no cough, RENTERIA, nausea, fevers or chills. She felt like she was maybe aspirating overnight and got worried that she was going to develop pneumonia again.
Review of Systems
General: Other (Negative unless mentioned above)
Objective Data
Data Reviewed
Vital Signs / I&O / Oxygen:
Vital Signs
Temp Pulse Resp BP Pulse Ox
97.8 F 126 37 116/76 98
03/10/25 12:00 03/10/25 14:06 03/10/25 14:06 03/10/25 14:06 03/10/25 14:06
Intake and Output
03/09/25 03/10/25 03/11/25
06:59 06:59 06:59
Intake Total 701.0 / 1101.0 1130 / 1130 480 / 480
Output Total 1919 / 1979 1140 / 1140
Balance -1219.0 / -879.0 -10 / -10 480 / 480
SaO2 [A/C] 97
SaO2 98
Nasal Cannula flow liters per 2.5
minute
Physical Exam
General: Respiratory Distress (negative), Comfortable, Chills (negative), Sweats (negative) and Other (Elderly, thin female, anxious appearing otherwise in NAD)
HEENT: Normocephalic and Anicteric
Cardiovascular: S1-S2, Peripheral Edema (negative) and Other (Tachycardic)
Respiratory: Wheeze (negative), Crackles (negative), Rhonchi (negative), Non-Labored Respirations and Other (Prolonged expiratory phase)
GI: Soft, Non Distended, Non Tender and Normal Bowel Sounds
Neurology: AO x 3 and Tremors (negative)
Skin: Warm, Dry, Cyanosis (negative) and Jaundice (negative)
Labs/Micro/Reports
Lab Data
03/10/25 05:48
03/10/25 05:48
Microbiology
03/06/25 17:50 Blood/Venous Blood Culture - Preliminary
No Growth in 72 hours- Final report to follow
03/07/25 09:46 Sputum Respiratory Culture - Final
Pseudomonas aeruginosa
03/07/25 09:46 Sputum Gram Stain - Final
03/06/25 17:50 Nose MRSA Screen - Final
Staph aureus MRSA
[2025-03-10 12:25] LABS: Glucose - Point of Care 162 mg/dl (70-99)
--- NOTE | 2025-03-10 12:30 | PTCARENOTE ---
Pt sitting OOB in chair x3+ hrs. Assisted to BR to void x3. Tolerating activity w/o complaints. HR into 130's w/ activity. Remains on O2 at 2l/min w/ Pox 96-98%. Pt to radiology for Video Swallow eval at 1230.
--- NOTE | 2025-03-10 12:30 | PTOTSP ---
Speech Language Pathology
VIDEOFLUOROSCOPIC SWALLOWING EXAMINATION (VSE) completed. Oropharyngeal swallow WFL. No significant pharyngeal residue. Transient supraglottic penetration (PAS 2) noted with thin liquids via cup/consecutive straw sips. No other penetration or
any aspiration noted.
Recommend:
(1) Regular solids/thin liquids
(2) General aspiration precautions
(3) Meds as tolerated
(4) COIN MACHINE SUPERVISOR to sign off. Please reconsult as indicated.
--- NOTE | 2025-03-10 13:50 | W.PN.HOSP.TC ---
Today's Communication/Plan
-
Transferred to telemetry
DC planning
Assessment / Plan
Assessment / Plan
Sepsis secondary to CARMELO Pneumonia
#Pseudomonas aeruginosa in the sputum
#Acute hypoxic respiratory failure 2/2 pneumonia/COPD exacerbation
#Acute on chronic hypercarbia
#Acute on chronic COPD 3 L nasal cannula/prednisone dependent
#Former smoker 50-year 1 to 2 pack a day stopped 2022
Initially was placed on BiPAP on admission, did not improve so was intubated 03/06. S/p extubation 03/08. Patient without any respiratory distress. Tolerating nasal cannula and oxygenating okay on 3 L which is her baseline.
COVID/influenza negative
Continue with antibiotics
Legionella and strep negative
Clinically improved. Afebrile. Improving white count. Remains slightly tachycardic. With no wheeze DC scheduled nebulizers which might help the sinus tachycardia.
With isolation of Pseudomonas aeruginosa antibiotic switched to cefepime. DC vancomycin and doxycycline.
Taper steroids-switch to oral prednisone. Use nebulizers as needed.
#Hx nasal MRSA 09/12/2024
#Chronic Sinus tachycardia
- Continue Corlanor 5 mg twice daily
#Chronic pain due to large ventral hernia on chronic oral opiates
- Patient follows at [facility]
- Patient takes hydrocodone 1 tab twice daily as needed severe pain will hold for now and resume as needed
- Tylenol as needed mild pain
#History of DM2 used to be on meds states was off due to weight loss
-Accu-Cheks with SSI, HgbA1c 6.5
#Primary hypertension
Continue with nifedipine
Hypothyroidism hx
-Low TSH, normal free T4
#Hyperlipidemia
-Continue Crestor 5 mg at bedtime
#Nonobstructive CAD
2D echo 09/15/2024: EF 55-60%, normal LVS LVSF, no wall abnormality, aortic sclerosis without stenosis, mild/moderate TR normal PASP
Follows with [facility] cardiology
#Upper GI bleed January 2023/gastric ulcers
#Severe esophagitis
#Severe anxiety
- Continue Wellbutrin 300 mg daily, Trintellix 20 mg daily
-Xanax 2 mg p.o. 4 times daily as needed anxiety; currently on 1 mg 4 times daily as needed. No evidence of withdrawal. Patient might want to consider going back after 2 mg dose on discharge.
#Chronic constipation
Patient on Linzess 145 mcg p.o. daily, continue senna 8.6 mg at bedtime
#Seasonal allergies
Continue levocetirizine 5 mg daily as needed
#Insomnia
Hold Ambien 6.25 mg at bedtime as needed
#History of breast cancer status post left lumpectomy surgery and chemotherapy
DVT prophylaxis
Subcu Lovenox
Full code
Await telemetry transfer
If continued improvement with the breathing will switch antibiotics to ciprofloxacin to cover Pseudomonas in the phlegm and discharged to rehab in next 24 hours
Anticipated Discharge: Within 24 hours
Subjective/Interval History
-
Date of Service: March 10, 2025
Breathing is okay today. She is at 3 L of oxygen which is her baseline. Cough with minimal productive phlegm. No chest pain.
Intermittent nausea which is chronic for her. She uses Zofran at home. No abdominal pain. No diarrhea.
No dizziness.
Objective Data
-
Labs:
Laboratory Results
03/10/25
05:48
WBC 11.5 H
Hgb 10.7 L
Hct 34.8 L
Plt Count 351 D
Sodium 139
Potassium 4.0
Chloride 100
Carbon Dioxide 37 H
BUN 10
Creatinine 0.5 L
Glucose 120 H
Calcium 9.7
Total Bilirubin 0.5
AST 37 H
ALT 30
Alkaline Phosphatase 61
Vital Signs:
Vital Signs
Temp Pulse Resp BP Pulse Ox
97.8 F 121 26 125/82 100
03/10/25 12:00 03/10/25 11:13 03/10/25 11:13 03/10/25 08:28 03/10/25 11:13
I&O
03/09/25 03/10/25 03/11/25
06:59 06:59 06:59
Intake Total 701.0 / 1101.0 1130 / 1130
Output Total 1919 1140 / 1140
Balance -1219.0 / -879.0 -10 / -10
Physical Exam
-
General: Comfortable
Respiratory: Non Labored Respirations; Negative Wheezes, Crackles or Accessory Resp Muscle Use
Cardiac: Regular Rhythm, S1/S2 and Tachycardic
GI: Soft and Other (Abdominal wall hernia which is reducible and nontender)
Neuro: AO x 3; Negative Tremors
Data Reviewed
-
Labs: Labs Reviewed by me
[2025-03-10 14:06] VITALS: BP 116/76
[2025-03-10 16:00] VITALS: BP 102/70
[2025-03-10 17:23] LABS: Glucose - Point of Care 126 mg/dl (70-99)
[2025-03-10] MEDS: NOVOLOG FLEXPEN-LOW RESISTANCE SC (17:25)
[2025-03-10] MEDS: LOVENOX 30 MG SC (18:12)
[2025-03-10 20:39] VITALS: BP 144/75
[2025-03-10 21:24] LABS: Glucose - Point of Care 123 mg/dl (70-99)
[2025-03-10] MEDS: COLACE LIQUID 100 MG PO (22:00)
[2025-03-10] MEDS: CRESTOR 5 MG PO (22:00)
[2025-03-10] MEDS: SENOKOT 8.6 MG PO (22:00)
[2025-03-10] MEDS: SINGULAIR 10 MG PO (22:00)
[2025-03-11] VITALS (10 sets, daily range): BP systolic 114–159; BP diastolic 79–118; PULSE 123; O2SAT 100; BMI 17.1
[2025-03-11] MEDS: STERILE WATER FOR INJECTION 10 ML IV ×3 (02:11→18:08)
[2025-03-11] MEDS: MAXIPIME 2000 MG IV ×3 (02:11→18:08)
[2025-03-11] MEDS: XANAX 1 MG PO ×2 (04:37→12:23)
[2025-03-11 04:40] LABS: Venous Blood Gas HCO3 47.7 mmol/L (22-27); Venous Blood Gas O2 Sat % 95.4 %; Venous Blood Gas pO2 72 mmHg (30-50)
[2025-03-11 04:42] LABS: Venous Blood Gas pCO2 77 mmHg (35-48)
[2025-03-11 04:56] LABS: Hematocrit 37.5 % (37.0-47.0); Hemoglobin 11.6 g/dL (12.0-16.0); Mean Corp Hgb Conc. 30.9 g/dL (33.0-37.0); Mean Corpuscular Hgb 28.8 pg (27.0-31.0); Mean Corpuscular Volume 93.1 fL (81.0-99.0); Mean Platelet Volume 9.3 fL (7.4-10.4); Platelet Count 372 10^3/uL (130-400); Red Blood Cell Count 4.03 10^6/uL (4.20-5.40); Red Cell Dist. Width 13.3 % (11.5-14.5); White Blood Cell Count 13.7 10^3/uL (4.8-10.8)
[2025-03-11 05:19] LABS: Blood Urea Nitrogen 12 mg/dl (7-17); Calcium 10.1 mg/dl (8.4-10.2); Chloride 94 mmol/L (98-107); Estimated Creatinine Clearance 61 ml/min; Glucose 126 mg/dl (70-99); Sodium 140 mmol/L (135-145); eGFR > 60.00
[2025-03-11 06:03] LABS: Carbon Dioxide 40 mmol/L (22-30)
[2025-03-11] MEDS: ZOFRAN 4 MG IV ×3 (06:09→21:36)
[2025-03-11] MEDS: LINZESS 145 MCG PO (06:20)
[2025-03-11] MEDS: FLOVENT 110 MCG INHALER 2 PUFF INH (07:31)
[2025-03-11] MEDS: WELLBUTRIN REGULAR RELEASE 100 MG PO ×2 (08:25→16:21)
[2025-03-11] MEDS: PROTONIX 40 MG PO (08:25)
[2025-03-11] MEDS: DELTASONE 30 MG PO (08:25)
[2025-03-11] MEDS: NOVOLOG FLEXPEN-LOW RESISTANCE SC ×2 (08:25→18:09)
[2025-03-11 08:26] LABS: Glucose - Point of Care 144 mg/dl (70-99)
[2025-03-11] MEDS: MIRALAX 17 GRAMS PO (08:26)
[2025-03-11] MEDS: PROCARDIA XL (EXTENDED RELEASE) 30 MG PO (08:26)
[2025-03-11] MEDS: THERAGRAN 1 TABLET PO (08:26)
[2025-03-11] MEDS: COMPAZINE 5 MG IV ×2 (08:28→19:50)
[2025-03-11] MEDS: TYLENOL ORAL SOLUTION 650 MG PO (08:29)
--- NOTE | 2025-03-11 08:49 | W.PN.HOSP.TC ---
Today's Communication/Plan
-
Add Dulcolax and if no response enema today. Obtain plain x-ray of the abdomen. Consult general surgery.
Continue with current antibiotics and steroids.
Add regular release Cardizem for heart rate and folloW response
Assessment / Plan
Assessment / Plan
Sepsis secondary to CARMELO Pneumonia
#Pseudomonas aeruginosa in the sputum
#Acute hypoxic respiratory failure 2/2 pneumonia/COPD exacerbation
#Acute on chronic hypercarbia
#Acute on chronic COPD 3 L nasal cannula/prednisone dependent
#Former smoker 50-year 1 to 2 pack a day stopped 2022
Initially was placed on BiPAP on admission, did not improve so was intubated 03/06. S/p extubation 03/08. Patient without any respiratory distress. Tolerating nasal cannula and oxygenating okay on 3 L which is her baseline.
COVID/influenza negative
Continue with antibiotics
Legionella and strep negative
Clinically improved. Afebrile. Improving white count. Remains slightly tachycardic. With no wheeze DC scheduled nebulizers which might help the sinus tachycardia.
With isolation of Pseudomonas aeruginosa antibiotic switched to cefepime. DCed vancomycin and doxycycline.
Taper steroids-switched to oral prednisone. Use nebulizers as needed.
#Abdominal wall defect with hernia
Patient is chronic abdominal wall hernia and was deemed not operable candidate. She has intermittent nausea due to that and takes antiemetics at home. Today she is more symptomatic with increased size and pain. No emesis. It is partially
reducible but today is tender compared to yesterday. She is passing gas and does not look obstructed. She is constipated without a bowel movement. Aggressively manage constipation. Obtain a plain x-ray. Also obtain general surgery input.
#Hx nasal MRSA 09/12/2024
#Chronic Sinus tachycardia
- Continue Corlanor 5 mg twice daily
- Will try a trial of Cardizem for heart rate control
#Chronic pain due to large ventral hernia on chronic oral opiates
- Patient follows at [facility]
- Patient takes hydrocodone 1 tab twice daily as needed severe pain will hold for now and resume as needed
- Tylenol as needed mild pain
#History of DM2 used to be on meds states was off due to weight loss
-Accu-Cheks with SSI, HgbA1c 6.5
#Primary hypertension
Continue with nifedipine
Hypothyroidism hx
-Low TSH, normal free T4
#Hyperlipidemia
-Continue Crestor 5 mg at bedtime
#Nonobstructive CAD
2D echo 09/15/2024: EF 55-60%, normal LVS LVSF, no wall abnormality, aortic sclerosis without stenosis, mild/moderate TR normal PASP
Follows with [facility]
#Upper GI bleed January 2023/gastric ulcers
#Severe esophagitis
#Severe anxiety
- Continue Wellbutrin 300 mg daily, Trintellix 20 mg daily
-Xanax 2 mg p.o. 4 times daily as needed anxiety; currently on 1 mg 4 times daily as needed. No evidence of withdrawal. Patient might want to consider going back after 2 mg dose on discharge.
#Chronic constipation
Patient on Linzess 145 mcg p.o. daily, continue senna 8.6 mg at bedtime
#Seasonal allergies
Continue levocetirizine 5 mg daily as needed
#Insomnia
Hold Ambien 6.25 mg at bedtime as needed
#History of breast cancer status post left lumpectomy surgery and chemotherapy
DVT prophylaxis
Subcu Lovenox
Full code
Await transfer to telemetry
Discussed with ELECTRO MECHANICAL TECHNOLOGIST
Total time spent on today's encounter was 52 minutes which included time spent in counseling the patient/family regarding diagnosis and treatment plan as listed above, goals of care, and symptom management. Case was discussed with nursing staff,
specialists, and care coordinators/case management. All labs and imaging personally reviewed by me. Remainder the time spent in detailed review of previous records, lab data, imaging, and other medical provider documentation.
Anticipated Discharge: > 48 hours
Subjective/Interval History
-
Date of Service: March 11, 2025
Patient today is bit more nauseous. She had Zofran without much relief. Requiring Compazine.
She also complains of an abdominal wall hernia is acting different with the more pain in distention. The pain started sometimes last evening and continued on. Passing gas but no bowel movement. She has a chronic constipation on laxative regimen
and Linzess.
Breathing is okay. She is on 3 L which is her baseline of oxygen.
Objective Data
-
Labs:
Laboratory Results
03/11/25
04:49
WBC 13.7 H
Hgb 11.6 L
Hct 37.5
Plt Count 372
Sodium 140
Potassium 4.0
Chloride 94 L
Carbon Dioxide 40 H
BUN 12
Creatinine 0.6
Glucose 126 H
Calcium 10.1
Vital Signs:
Vital Signs
Temp Pulse Resp BP Pulse Ox
98.3 F 128 35 139/91 97
03/11/25 07:25 03/11/25 08:00 03/11/25 08:00 03/11/25 05:18 03/11/25 08:00
I&O
03/10/25 03/11/25 03/12/25
06:59 06:59 06:59
Intake Total 1130 / 1130 720 / 720
Output Total 1140 / 1140
Balance -10 / -10 720 / 720
Review of Systems
-
Constitutional: Denies Fever
EENT: Denies Sore Throat
Respiratory: Denies Trouble Breathing (At rest)
Cardiac: Denies Chest Pain
Abdomen/GI: Reports Abdominal Pain, Nausea and Constipated
Neuro: Denies Dizzy
Physical Exam
-
General: Comfortable
Respiratory: Clear to Auscultation and Non Labored Respirations; Negative Accessory Resp Muscle Use
Cardiac: Regular Rhythm, S1/S2 and Tachycardic
GI: Soft, Normal Bowel Sounds and Other (Upper abdominal wall hernia which is distended, partially reducible but some tenderness today unlike yesterday noted)
Neuro: AO x 3
Data Reviewed
-
Labs: Labs Reviewed by me
[2025-03-11] MEDS: CARDIZEM 30 MG PO (09:49)
[2025-03-11] MEDS: COLACE 100 MG PO (09:49)
[2025-03-11] MEDS: DULCOLAX 10 MG RECTAL (09:50)
[2025-03-11] MEDS: ROXICODONE 5 MG PO ×2 (11:53→16:28)
[2025-03-11 11:55] LABS: Glucose - Point of Care 166 mg/dl (70-99)
[2025-03-11] MEDS: NOVOLOG FLEXPEN-LOW RESISTANCE 1 UNITS SC (11:55)
--- NOTE | 2025-03-11 12:13 | PTCARENOTE ---
Pt reported nausea this am not relieved by Zofran. New order for Compazine. Denies nausea at this time.
Reports abdominal pain and constipation. Ducolax supp. and Oxycodone given per new order. + small BM.
Pt remains GEORGE. Became SOB with audible wheeze during CHG bath in bathroom. Assisted back to bed. SURVEY RESEARCH PROFESSOR called for neb treatment. PRN Xanax given for anxiety.
[2025-03-11] MEDS: DUONEB 3 ML INH ×2 (12:27→21:55)
--- NOTE | 2025-03-11 15:24 | CM ---
Discharge POC: PT recommendation for SNF. Patient in agreement. [facility]. Referral previously forwarded. No available beds at this time. Will continue to follow with [facility].
[2025-03-11 17:03] LABS: Glucose - Point of Care 143 mg/dl (70-99)
[2025-03-11] MEDS: LOVENOX 30 MG SC (18:08)
[2025-03-11] MEDS: MAALOX 30 ML PO (20:44)
[2025-03-11] MEDS: FLOVENT 110 MCG INHALER INH (20:53)
[2025-03-11 21:45] LABS: Glucose - Point of Care 142 mg/dl (70-99)
[2025-03-11] MEDS: CARDIZEM 5 MG IV (21:54)
[2025-03-11] MEDS: COLACE PO (21:57)
--- NOTE | 2025-03-11 22:10 | W.PN.UPDATE ---
Update Note
Progress Note Update
-Called at bedside to assess the patient, bp 150/ 70, hr 147, afebrile, SPO2 95%. Complaining of sob, denies chest pain.
Wheezy lung sound noted, duo nebs given. Sob resolved after neb treatment.
-Cardizem 5mg IV x1
-While in the room, patient complained of severe generalized abdominal pain and had 2 episodes of coffee ground emesis.
-NGT placed with intermittent suction, drainage around 1600cc.
-Stat abdominal CT ordered and GI consult placed.
-NPO
-LR 500cc bolus and will start the patient on maintenance IVF
-Will change Protonix to IV daily.
Abd/PLVs CT shows
-Bowel containing ventral hernia. No evidence of incarceration or strangulation. Stable
-Severe distention of the stomach. Etiology unknown. Progressed.
-large amount residual contrast from yesterday's barium swallow study. New
-Moderate hiatal hernia. Stable. Simple right renal cyst. Stable. Prior cholecystectomy. Stable
-Mild diverticulosis. Stable
-Stable left adnexal cyst likely a benign ovarian cyst or paraovarian cyst.
Stat labs.
Hgb level dropped down from 11.6 to 8.9 will monitor q 6 for now and transfuse as needed
mag level is 1 repleted as needed
Patient transferred to IMU level
[2025-03-11] MEDS: WELLBUTRIN REGULAR RELEASE PO (23:41)
[2025-03-11] MEDS: CRESTOR PO (23:41)
[2025-03-11] MEDS: SINGULAIR PO (23:41)
[2025-03-11] MEDS: LINZESS PO (23:42)
[2025-03-12] VITALS (24 sets, daily range): BP systolic 103–159; BP diastolic 69–125; BMI 17.3
[2025-03-12] MEDS: DULCOLAX 10 MG RECTAL (00:23)
[2025-03-12] MEDS: LR 1000 IV ×2 (00:23→14:26)
[2025-03-12] MEDS: LOPRESSOR 2.5 MG IV ×3 (00:23→20:59)
[2025-03-12] MEDS: LR 500 IV (00:23)
[2025-03-12 01:14] LABS: Hematocrit 28.9 % (37.0-47.0); Hemoglobin 8.9 g/dL (12.0-16.0); Mean Corp Hgb Conc. 30.8 g/dL (33.0-37.0); Mean Corpuscular Hgb 29.4 pg (27.0-31.0); Mean Corpuscular Volume 95.4 fL (81.0-99.0); Mean Platelet Volume 9.5 fL (7.4-10.4); Platelet Count 248 10^3/uL (130-400); Red Blood Cell Count 3.03 10^6/uL (4.20-5.40); Red Cell Dist. Width 13.2 % (11.5-14.5); White Blood Cell Count 18.3 10^3/uL (4.8-10.8)
[2025-03-12 01:23] LABS: Blood Urea Nitrogen 13 mg/dl (7-17); Calcium 8.7 mg/dl (8.4-10.2); Chloride 92 mmol/L (98-107); Estimated Creatinine Clearance 60 ml/min; Glucose 102 mg/dl (70-99); Potassium 3.7 mmol/L (3.5-5.1); Sodium 137 mmol/L (135-145); eGFR > 60.00
[2025-03-12 01:33] LABS: Carbon Dioxide 42 mmol/L (22-30)
--- NOTE | 2025-03-12 01:47 | PTCARENOTE ---
received pt around 2200, pt vomiting coffee ground emesis, PRN meds given see DEC, ABD pain reported, floor CHEF KITCHEN MANAGER at bedside to assess pt, CT ABD ordered and completed, NGT placed, LIS per orders, 1600ml output from L nare NGT, pt HR also in the 140s,
PRN meds given see DEC, labs drawn around 0100, CHEF KITCHEN MANAGER made aware of results, pt appears to be resting comfortably in bed, pt now denies ABD pain at this time, call jackson in reach
[2025-03-12] MEDS: MAGNESIUM SULFATE 50 IV (01:58)
[2025-03-12] MEDS: STERILE WATER FOR INJECTION 10 ML IV ×3 (01:59→17:04)
[2025-03-12] MEDS: MAXIPIME 2000 MG IV ×3 (01:59→17:04)
[2025-03-12] MEDS: NSS (PRESERVATIVE FREE) 10 ML IV ×2 (02:55→20:59)
[2025-03-12] MEDS: PROTONIX IV 40 MG IV ×2 (02:55→20:59)
[2025-03-12 05:17] LABS: Hematocrit 33.8 % (37.0-47.0); Hemoglobin 10.9 g/dL (12.0-16.0); Mean Corp Hgb Conc. 32.2 g/dL (33.0-37.0); Mean Corpuscular Hgb 28.7 pg (27.0-31.0); Mean Corpuscular Volume 88.9 fL (81.0-99.0); Mean Platelet Volume 8.9 fL (7.4-10.4); Platelet Count 333 10^3/uL (130-400); Red Cell Dist. Width 13.3 % (11.5-14.5); White Blood Cell Count 16.3 10^3/uL (4.8-10.8)
[2025-03-12 05:40] LABS: Blood Urea Nitrogen 19 mg/dl (7-17); Calcium 9.7 mg/dl (8.4-10.2); Chloride 87 mmol/L (98-107); Estimated Creatinine Clearance 60 ml/min; Glucose 122 mg/dl (70-99); Potassium 3.7 mmol/L (3.5-5.1); Sodium 141 mmol/L (135-145); eGFR > 60.00
[2025-03-12 06:20] LABS: Carbon Dioxide 47 mmol/L (22-30)
--- NOTE | 2025-03-12 06:57 | CON.GI ---
Addendum entered and electronically signed by Karlo Arroyo MD 03/12/25 13:00:
I saw and examined the patient.
The OTA or PA's note was reviewed and I agree with the note.
Comment: 70yo female admitted w PNA, intubated now extubated. Overnight had CGE. NGT drained 1600cc dark coffee ground, no yashira blood. She has large ventral hernia but not operative candidate. Also had EGD in 2022 during prior admission -
severe esophagitis w ulceration and large clot, erosive gastropathy. During another admission in 2023 had UGI showing delayed emptying stomach into duodenum moderately distended questioning gastroparesis or SMA syndrome, moderate paraesophageal
hernia. Yesterday pt had CT showing stable ventral hernia containing bowel w/o obstruction, severe distended stomach, moderate hiatal hernia. She reports chronic constipation BM 2x/week. She takes intermittent pain meds for pain from her ventral
hernia, inoperable due to her lung disease
REC:
Likely intermittent stasis, PSBO related to ventral hernia, hiatal hernia and possible SMA syndrome
Continue NGT drainage and when improved, consider UGI/SBFT to identify sites of obstruction/partial obstruction
Bowel regimen, agree with enema
Protonix BID
EGD if active bleeding
If signs of progressing obstruction, would involve surgery. Not surgical candidate in past so hold off at this point.
Original Note:
Consultation
-
Date/Time Consultation Requested: 03/12/2514
Date/Time Consultation Performed: 03/12/2515
Requesting Provider: MYLES Adorno
Performing Provider: MYLES Mesa, Karlo Arroyo MD
Reason for Consultation: abdominal pain, coffee ground emesis
Medical History
Chief Complaint / HPI
Chief Complaint: abdominal pain, vomiting dark emesis
History of Present Illness:
69-year-old female with PMH of COPD , former smoker, asthma, NIDDM, chronic pain on narcotics at home, hypothyroid, HTN, HLD, large ventral hernia/PEH(per notes prior eval at [facility] not surgical candidate due to resp status), GERD constipation
UGIB secondary to severe esophagitis with circumferential ulceration and overlying clot 02/08/23, constipation, hx Breast CA s/p lumpectomy CTX/XRT present 03/06 for admission for fever and shortness of breath with concern for sepsis with PNA and
hypoxemia requiring intubation on admission. She had been managed by hospitalist and pulm team for treatment. she has been on low dose Lovenox, inhaler, PO prednisone, Protonix, bowel regiment(senna, colace, miralax, and Linzess) and multiple
chronic medications. She states resp status was improving but noted increased nausea, distention and pain with hernia. Se began with coffee ground emesis and asked to eval. CT 03/11 with bowel containing ventral hernia no incarceration or
strangulation, severe distention on stomach with large amount of residual contrast from prior barium study, moder HH,renal cyst prior hugo, diverticulosis and adnexal cyst.
In review of prior work up pt with UGI series completed 2023 in delay of stomach emptying to duodenum with distention with gastroparesis, SMA syndrome, moderate paraesophageal hernia, no SB obstruction, NGT in place prior hugo, large
anterior midline abdominal wall hernia. She was seen by the surgical team at that time and opted for no surgical intervention and management of gastroparesis and chronic constipation and had managed medically since that time. She admits to wt
loss about 5 kg since last year, decreased appetite, chronic GERD, chronic abdominal pain, and occasional vomiting. She admits to periods of flare of hernia with increased distention and pain similar to symptoms noted now. She will take percocet
PRN when symptoms are worse with improvement. She is on chronic laxative regiment that has been working well and otherwise denies dysphagia, diarrhea, or rectal bleeding. Last EGD 2022 with severe esophagitis with ulceration and large clot,
erosive gastropathy, normal duodenum( recommended 2 months follow up). hx colonoscopy years ago at [place] and flex sig 2023 normal done for rectal bleeding at that time.
Past Medical History
Past Medical History: Asthma, Cancer (breast cancer), COPD, GERD (Severe esophagitis with circumferential ulceration overlying clot (02/08/2023)), HTN, Hypercholesterolemia, NIDDM and Other (prior UGI bleed 2022 with severe esophagitis, ulceration,
constipation, large ventral hernia/PEH with chronic pain, and chronic hypoxemia and hypercapnia, Anxiety / Depression History of Breast Cancer s/p Surgery, Chemo and XRT, MRSA)
Past Surgical History: Other (Lumpectomy)
Social History
Tobacco: Former Smoker
Alcohol: None
Drug: None
Living: With Family (daughter )
Employment: Retired
Family History
Family History: Other (Mother rectal cancer)
Allergies / Home Medications
Allergy/AdvReac Type Severity Reaction Status Date / Time
Iodinated Contrast Media Allergy Tongue Verified 12/18/24 15:26
Swelling
Iodine and Iodide Containing Allergy Tongue Verified 12/18/24 15:26
Produc Swelling
shellfish derived Allergy Tongue Verified 12/18/24 15:26
Swelling
aspirin AdvReac Nausea / Verified 12/18/24 15:26
Vomiting
�Medication �Instructions �Recorded
bupropion HCl 300 mg 24 hr tablet, 300 mg PO DAILY Mental 02/04/23
extended release Health/Anxiety
dexlansoprazole 60 mg 60 mg PO DAILY Gastrointestinal 02/04/23
capsule,biphase delayed release issue
fluticasone 250 mcg-salmeterol 50 1 inh inhalation R BID 02/04/23
mcg/dose blistr powdr for Lung/breathing issues
inhalation (Advair Diskus)
ivabradine 5 mg tablet (Corlanor) 5 mg PO BID Heart disease/condition 02/04/23
levocetirizine 5 mg tablet 5 mg PO DAILYPRN PRN allergies 02/04/23
linaclotide 145 mcg capsule 145 mcg PO DAILY Constipation 02/04/23
(Linzess)
ondansetron HCl 8 mg tablet 8 mg PO Q8H nausea 02/04/23
rosuvastatin 5 mg tablet 5 mg PO HS High cholesterol 02/04/23
vortioxetine 20 mg tablet 20 mg PO DAILY Mental 02/04/23
(Trintellix) Health/Anxiety
nifedipine 30 mg tablet,extended 30 mg PO DAILY #30 tabs 02/12/23
release
sennosides 8.6 mg tablet (senna) 8.6 mg PO HS PRN Constipation 05/31/23
alprazolam 2 mg tablet 2 mg PO QIDPRN PRN anxiety 02/01/24
acetaminophen 500 mg tablet 1,000 mg PO Q6HPRN PRN mild pain 09/12/24
(Tylenol Extra Strength)
docusate sodium 100 mg capsule 100 mg PO HS PRN Constipation 09/12/24
montelukast 10 mg tablet 10 mg PO HS Lung/Breathing Issues 09/12/24
therapeutic multivitamin 1 tab PO DAILY Supplement 09/12/24
tiotropium bromide 2.5 1 inh inhalation R DAILY 09/12/24
mcg/actuation mist for inhalation Lung/Breathing Issues
(Spiriva Respimat)
zolpidem 6.25 mg tablet,extended 6.25 mg PO HSPRN PRN sleep 09/12/24
release,multiphase
levalbuterol tartrate 45 2 inh inhalation Q6H PRN shortness 09/15/24
mcg/actuation aerosol inhaler of breath or wheezing #15 grams
(Xopenex HFA)
dupilumab 300 mg/2 mL subcutaneous 300 mg SC Q2W Lung/Breathing Issues 03/06/25
pen injector (Dupixent)
lactulose 10 gram/15 mL oral 10 g PO DAILYPRN PRN constipation 03/06/25
solution
oxycodone-acetaminophen 5 mg-325 1 tab PO TIDPRN PRN severe pain 03/06/25
mg tablet
prednisone 5 mg tablet 5 mg PO BID Lung/Breathing Issues 03/06/25
Review of Systems
-
History Source: Patient
Constitutional: Reports Weight Loss
Respiratory: Reports Trouble Breathing
Abdomen/GI: Reports Abdominal Pain, Nausea, Vomiting (coffee ground emesis ) and Constipated
: Reports No Symptoms
Musculoskeletal: Reports No Symptoms
Skin: Reports No Symptoms
Neurological: Reports Weakness
Endocrine: Reports No Symptoms
Hematologic/Lymphatic: Reports Bleeding (coffee ground emesis )
Vital Signs
Temp Pulse Resp BP Pulse Ox
98.7 F 118 35 116/71 100
03/12/25 03:30 03/12/25 06:00 03/12/25 06:00 03/12/25 06:00 03/12/25 06:00
Physical Exam
Exam
General: No Apparent Distress and Other (thin appearing )
HEENT: Normocephalic and Anicteric
Respiratory: Other (decreased bases with slight dyspnea at rest )
Cardiac: Other (tachy)
GI: Soft, Tender (mild ) and Other (large ventral hernia with palpable bowel content )
Musculoskeletal: No Clubbing and No Cyanosis
Skin: Warm and Dry
Neuro: Awake, Alert and AO x 3
Psych: Calm
Results
WBC 16.3 10^3/uL (4.8-10.8) H 03/12/25 05:01
Hgb 10.9 g/dL (12.0-16.0) L D 03/12/25 05:01
Hgb Cancelled 03/12/25 05:01
Hct 33.8 % (37.0-47.0) L 03/12/25 05:01
Hct Cancelled 03/12/25 05:01
MCV 88.9 fL (81.0-99.0) 03/12/25 05:01
Plt Count 333 10^3/uL (130-400) D 03/12/25 05:01
Absolute Neuts (auto) 7.6 10^3/uL (1.4-6.5) H 03/10/25 05:48
PT 13.4 Sec (11.4-14.6) 03/07/25 04:00
INR 0.99 03/07/25 04:00
APTT 26.9 Sec (23.4-35.0) 03/07/25 04:00
Sodium 141 mmol/L (135-145) 03/12/25 05:01
Potassium 3.7 mmol/L (3.5-5.1) 03/12/25 05:01
Chloride 87 mmol/L (98-107) L 03/12/25 05:01
Carbon Dioxide 47 mmol/L (22-30) H 03/12/25 05:01
BUN 19 mg/dl (7-17) H 03/12/25 05:01
Creatinine 0.5 mg/dL (0.6-1.0) L 03/12/25 05:01
Calcium 9.7 mg/dl (8.4-10.2) 03/12/25 05:01
Total Bilirubin 0.5 mg/dl (0.2-1.3) 03/10/25 05:48
AST 37 U/L (14-36) H 03/10/25 05:48
ALT 30 U/L (0-35) 03/10/25 05:48
Alkaline Phosphatase 61 U/L (38-126) 03/10/25 05:48
Diagnostic Image Results:
03/11/25 CT Abd/pelvis Wo Iv Cont
Bowel containing ventral hernia. No evidence of incarceration or strangulation. Stable
Severe distention of the stomach. Etiology unknown. Progressed.
Large amount residual contrast from yesterday's barium swallow study. New
Moderate hiatal hernia. Stable
Simple right renal cyst. Stable
Prior cholecystectomy. Stable
Mild diverticulosis. Stable
Stable left adnexal cyst likely a benign ovarian cyst or paraovarian cyst.
03/11/25 CR Abdomen - 2 Views
Contrast material within the colon from the patient's previous video swallow exam. No evidence for a bowel obstruction. Large midline anterior abdominal wall hernia containing segments of the colon, as seen on the previous CT abdomen/pelvis.
Inferior extension of the cecum into the right hemipelvis approaching the right inguinal region may reflect a small inguinal hernia.
04/09/24 UGI
1. Delayed emptying of contrast material from the stomach into the duodenum which is moderately distended. Diagnostic possibilities are (1) gastroparesis or (2) superior mesenteric artery syndrome (a possibility given that a transition point
between distended and collapsed bowel loops appears to be located in the midline at the level of the 3rd portion of the duodenum).
2. Moderate-sized paraesophageal hiatal hernia.
3. No fluoroscopic evidence for distal small bowel obstruction.
4. Nasogastric tube in place terminating in the stomach.
5. Previous cholecystectomy.
6. Large midline anterior abdominal wall hernia.
Prior GI Procedures:
EGD: 02/04/2023 (Arroyo) - Severe esophagitis with ulceration and large
overlying clot
- Erosive gastropathy with stigmata of recent bleeding.
- Normal examined duodenum.
- No specimens collected.
Repeat was recommended in 2 months to eval for healing. Patient never had.
Flex si02/04/24- bohning
- The entire examined colon is normal.
- Stool in the rectum.
- Normal mucosa in the rectum.
- No specimens collected.
Colonoscopy: '10 years ago at [place]'
Assessment / Plan
-
69-year-old female with PMH of COPD , former smoker, asthma, NIDDM, chronic pain on narcotics at home, hypothyroid, HTN, HLD, large ventral hernia/PEH(per notes prior eval at [facility] not surgical candidate due to resp status), GERD constipation
UGIB secondary to severe esophagitis with circumferential ulceration and overlying clot 02/08/23, constipation, hx Breast CA s/p lumpectomy CTX/XRT present 03/06 for admission for fever and shortness of breath with concern for sepsis with PNA and
hypoxemia requiring intubation on admission. She had been managed by hospitalist and pulm team for treatment. she has been on low dose Lovenox, inhaler, PO prednisone, Protonix, bowel regiment(senna, colace, Miralax, and Linzess) and multiple
chronic medications. She states resp status was improving but noted increased nausea, distention and pain with hernia. Se began with coffee ground emesis and asked to eval. CT 03/11 with bowel containing ventral hernia no incarceration or
strangulation, severe distention on stomach with large amount of residual contrast from prior barium study, moder HH,renal cyst prior hugo, diverticulosis and adnexal cyst.
04/09/24 UGI
1. Delayed emptying of contrast material from the stomach into the duodenum which is moderately distended. Diagnostic possibilities are (1) gastroparesis or (2) superior mesenteric artery syndrome (a possibility given that a transition point
between distended and collapsed bowel loops appears to be located in the midline at the level of the 3rd portion of the duodenum).
2. Moderate-sized paraesophageal hiatal hernia.
3. No fluoroscopic evidence for distal small bowel obstruction.
4. Nasogastric tube in place terminating in the stomach.
5. Previous cholecystectomy.
6. Large midline anterior abdominal wall hernia.
Impression:
coffee ground emesis
CT with gastric distention with residue from barium study
Large ventral hernia
moderate PEH per prior imaging
PNA/sepsis/hypoxemia on admission requiring intubation
leukocytosis
tachycardia
anemia
chronic Constipation
delayed emptying of contrast-- gastroparesis /SMA from stomach to duodenum with distention on prior UGI series in 2023
hx esophagitis with circumferential ulcers 2022
wt loss
other med problems:
-COPD with chronic O2
-chronic pain with chronic pain meds
-hypothyroidism
-HTN
-hyperlipidemia
breast CA with prior CXT/XRT
-MRSA
Plan:
Etiology of coffee ground related large hernia, gastroparesis, constipation induced, narcotic induced , vs other
CT as noted
NGT output 1600ml noted on placement
agree with cont NGT decompression
prior UGI as noted -- may need to consider repeat
reviewed with Dr. Butts no stools since admission to give MOM enema
t/c surgical eval though noted not surgical candidate in past
UGI as noted in 2023
senna, colace, Miralax, and Linzess
increased PPI to BID
limit narcotics
cont abx for PNA
-
-
Thank you for consultation and allowing me to participate in the patient's care. Please call the call person GI physician during the after hours with any questions or concerns.
[2025-03-12] MEDS: NOVOLOG FLEXPEN-LOW RESISTANCE SC ×3 (08:01→17:30)
[2025-03-12 08:02] LABS: Glucose - Point of Care 116 mg/dl (70-99)
[2025-03-12] MEDS: FLOVENT 110 MCG INHALER INH ×2 (08:34→20:06)
[2025-03-12] MEDS: COLACE PO (09:11)
[2025-03-12] MEDS: WELLBUTRIN REGULAR RELEASE PO (09:12)
[2025-03-12] MEDS: DELTASONE PO (09:12)
[2025-03-12] MEDS: MIRALAX PO (09:12)
[2025-03-12] MEDS: THERAGRAN PO (09:12)
[2025-03-12] MEDS: PROCARDIA XL (EXTENDED RELEASE) PO (09:12)
[2025-03-12] MEDS: NSS (PRESERVATIVE FREE) IV (09:17)
--- NOTE | 2025-03-12 09:39 | W.PN.HOSP.TC ---
Today's Communication/Plan
-
Continue with NG tube to suction and IV fluids.
Milk of molasses enema.
Switch steroids to IV.
Assessment / Plan
Assessment / Plan
Sepsis secondary to CARMELO Pneumonia
#Pseudomonas aeruginosa in the sputum
#Acute hypoxic respiratory failure 2/2 pneumonia/COPD exacerbation
#Acute on chronic hypercarbia
#Acute on chronic COPD 3 L nasal cannula/prednisone dependent
#Former smoker 50-year 1 to 2 pack a day stopped 2022
Initially was placed on BiPAP on admission, did not improve so was intubated 03/06. S/p extubation 03/08. Patient without any respiratory distress. Tolerating nasal cannula and oxygenating okay on 3 L which is her baseline.
COVID/influenza negative
Continue with antibiotics
Legionella and strep negative
Clinically improved. Afebrile. Improved white count. With no wheeze DC scheduled nebulizers which might help the sinus tachycardia.
With isolation of Pseudomonas aeruginosa antibiotic switched to cefepime. DCed vancomycin and doxycycline.
Taper steroids-switched to oral prednisone. Use nebulizers as needed.
# Nausea vomiting with abdominal discomfort over abdominal wall hernia area.
Patient is chronic abdominal wall hernia and was deemed not operable candidate. She has intermittent nausea due to that and takes antiemetics at home.
S/P NG tube insertion last night due to worsening GI symptoms.
CT shows bowel containing ventral hernia but no evidence of incarceration or strangulation. There was severe distention of the stomach of unclear etiology. There is large amount of residual contrast from yesterday's barium study. Moderate hiatus
hernia noted.
I suspect her stomach distention may be secondary to aerophagia due to her respiratory issues. she is constipated without a bowel movement. Aggressively manage constipation. No response to Dulcolax suppository or tapwater enema. Will give milk
of molasses enema today.
GI consulted by night team.
Await general surgery input.
#Hx nasal MRSA 09/12/2024
#Chronic Sinus tachycardia
- Continue Corlanor 5 mg twice daily
- Was put on trial of Cardizem for heart rate control
#Chronic pain due to large ventral hernia on chronic oral opiates
- Patient follows at [facility]
- Patient takes hydrocodone 1 tab twice daily as needed severe pain will hold for now and resume as needed
- Tylenol as needed mild pain
#History of DM2 used to be on meds states was off due to weight loss
-Accu-Cheks with SSI, HgbA1c 6.5
#Primary hypertension
Continue with nifedipine
Hypothyroidism hx
-Low TSH, normal free T4
#Hyperlipidemia
-Continue Crestor 5 mg at bedtime
#Nonobstructive CAD
2D echo 09/15/2024: EF 55-60%, normal LVS LVSF, no wall abnormality, aortic sclerosis without stenosis, mild/moderate TR normal PASP
Follows with [facility] cardiology
#Upper GI bleed January 2023/gastric ulcers
#Severe esophagitis
#Severe anxiety
- Continue Wellbutrin 300 mg daily, Trintellix 20 mg daily
-Xanax 2 mg p.o. 4 times daily as needed anxiety; currently on 1 mg 4 times daily as needed. No evidence of withdrawal. Patient might want to consider going back after 2 mg dose on discharge.
#Chronic constipation
Patient on Linzess 145 mcg p.o. daily, continue senna 8.6 mg at bedtime
#Seasonal allergies
Continue levocetirizine 5 mg daily as needed
#Insomnia
Hold Ambien 6.25 mg at bedtime as needed
#History of breast cancer status post left lumpectomy surgery and chemotherapy
DVT prophylaxis
Subcu Lovenox
Full code
With NG tube in place will switch steroids to IV and taper. Continue with IV fluids
Discussed with BILINGUAL LOAN PROCESSOR
Total time spent on today's encounter was 52 minutes which included time spent in counseling the patient/family regarding diagnosis and treatment plan as listed above, goals of care, and symptom management. Case was discussed with nursing staff,
specialists, and care coordinators/case management. All labs and imaging personally reviewed by me. Remainder the time spent in detailed review of previous records, lab data, imaging, and other medical provider documentation.
Anticipated Discharge: > 48 hours
Subjective/Interval History
-
Date of Service: March 12, 2025
Last night events noted. Patient had more GI symptoms requiring NG tube insertion.
Ever since NG tube insertion she feels her nausea is better. Her abdominal pain is much improved.
She had Dulcolax and tapwater enema without much results yesterday. She has not had a bowel movement still.
Denies any trouble with her breathing. She is stable on 3 L of oxygen.
No chest pain.
No fever chills.
No dizziness.
Objective Data
-
Labs:
Laboratory Results
03/12/25 03/12/25 03/12/25
00:52 05:01 05:01
WBC 18.3 H 16.3 H
Hgb 8.9 L D 10.9 L D Cancelled
Hct 28.9 L 33.8 L
Plt Count 248 D
Sodium 137
Potassium 3.7
Chloride 92 L
Carbon Dioxide 42 H
BUN 13
Creatinine 0.3 L
Glucose 102 H
Calcium 8.7
03/12/25 03/12/25 03/12/25
05:01 10:00 16:00
WBC
Hgb Pending Pending
Hct Cancelled Pending Pending
Plt Count 333 D
Sodium 141
Potassium 3.7
Chloride 87 L
Carbon Dioxide 47 H
BUN 19 H
Creatinine 0.5 L
Glucose 122 H
Calcium 9.7
03/12/25
22:00
WBC
Hgb Pending
Hct Pending
Plt Count
Sodium
Potassium
Chloride
Carbon Dioxide
BUN
Creatinine
Glucose
Calcium
Vital Signs:
Vital Signs
Temp Pulse Resp BP Pulse Ox
98.6 F 113 18 116/71 100
03/12/25 07:39 03/12/25 08:34 03/12/25 08:34 03/12/25 06:00 03/12/25 09:25
I&O
03/11/25 03/12/25 03/13/25
06:59 06:59 06:59
Intake Total 720 / 720 30 / 30
Output Total 1600 / 1600
Balance 720 / 720 -1570 / -1570
Physical Exam
-
General: No Apparent Distress
HEENT: Moist Mucous Membranes
Respiratory: Clear to Auscultation and Non Labored Respirations; Negative Accessory Resp Muscle Use
Cardiac: Regular Rhythm and S1/S2
GI: Soft, Nontender, Normal Bowel Sounds and Other (reducible ventral hernia)
Neuro: AO x 3
Data Reviewed
-
CT Scan: Report Reviewed by me (CT A/P)
Labs: Labs Reviewed by me
[2025-03-12] MEDS: DECADRON 3 MG IV ×2 (10:17→20:59)
[2025-03-12 12:12] LABS: Glucose - Point of Care 131 mg/dl (70-99)
--- NOTE | 2025-03-12 14:31 | CM ---
Continues with NGT to suction, IV/AB. C/O abdominal distention and inability to have BM despite medical interventions. Medical workup ongoing. Discharge POC: SNF. Prefers [facility]. Referral previously forwarded.
[2025-03-12 14:59] LABS: Hematocrit 35.1 % (37.0-47.0); Hemoglobin 10.9 g/dL (12.0-16.0)
--- NOTE | 2025-03-12 15:14 | PTCARENOTE ---
Assumed care of pt from warranty administrator RN. AAOx3. ST on tele, HRs 110s-130s. Remains on 3L nasal cannula, SpO2 100%. NGT at 55cm in L nare to low intermittent suction. Milk of Molasses enema 500mL given for constipation, without much relief. GI
notified. Per GI, hold off on further enemas at this time. Repeat abdominal Xray with no signs of obstruction. Repeat Hgb 10.9, no longer trending H&H. Assessment documented. Pt resting in bed call jackson in reach.
--- NOTE | 2025-03-12 15:22 | CON.GS ---
Consultation
-
Date/Time Consultation Performed: 03/12/25
Requesting Provider: Benjamín
Performing Provider: Ventral hernia and hiatal hernia
Reason for Consultation: n/v
Medical History
-
Chief Complaint: COPD exacerbation
History of Present Illness:
Ms. Pan is a 69 yo female with a h/o COPD on home oxygen, breast ca and known large ventral and hiatal hernias. She has been seen by our service in the past with hernia followed non-operatively as her biofuels production associate at [facility] had advised patient
that she is not a surgical candidate. At baseline the hernia is chronically protuberant and does cause her some pain, she has worn and abdominal binder intermittently in the past. She waas admitted for COPD exacerbation and developed increased pain
at her ventral hernia site as well as n/v overnight. She is unsure if she is passing flatus. She has chronic constipation. During my encounter she denies nausea with ngt to suction
Past Medical History
Past Medical History: Other (Cancer (breast) and Other (chronic hypercapnic and hypoxemic respiratory failure on 3-5 l nasal cannula at baseline, anxiety/depression, gastroparesis)
Past Surgical History: Other (lumpectomy)
Social History
Tobacco: Non-Smoker
Alcohol: None
Employment: Not Employed
Family History
Family History: Reviewed & Noncontributory
Allergies / Home Medications
Allergy/AdvReac Type Severity Reaction Status Date / Time
Iodinated Contrast Media Allergy Tongue Verified 12/18/24 15:26
Swelling
Iodine and Iodide Containing Allergy Tongue Verified 12/18/24 15:26
Produc Swelling
shellfish derived Allergy Tongue Verified 12/18/24 15:26
Swelling
aspirin AdvReac Nausea / Verified 12/18/24 15:26
Vomiting
�Medication �Instructions �Recorded �Confirmed �Type
bupropion HCl 300 mg 24 hr tablet, 300 mg PO DAILY Mental 02/04/23 03/08/25 History
extended release Health/Anxiety
dexlansoprazole 60 mg 60 mg PO DAILY Gastrointestinal 02/04/23 03/07/25 History
capsule,biphase delayed release issue
fluticasone 250 mcg-salmeterol 50 1 inh inhalation R BID 02/04/23 03/07/25 History
mcg/dose blistr powdr for Lung/breathing issues
inhalation (Advair Diskus)
ivabradine 5 mg tablet (Corlanor) 5 mg PO BID Heart disease/condition 02/04/23 03/07/25 History
levocetirizine 5 mg tablet 5 mg PO DAILYPRN PRN allergies 02/04/23 03/08/25 History
linaclotide 145 mcg capsule 145 mcg PO DAILY Constipation 02/04/23 03/07/25 History
(Linzess)
ondansetron HCl 8 mg tablet 8 mg PO Q8H nausea 02/04/23 03/08/25 History
rosuvastatin 5 mg tablet 5 mg PO HS High cholesterol 02/04/23 03/08/25 History
vortioxetine 20 mg tablet 20 mg PO DAILY Mental 02/04/23 03/08/25 History
(Trintellix) Health/Anxiety
nifedipine 30 mg tablet,extended 30 mg PO DAILY #30 tabs 02/12/23 03/08/25 Rx
release
sennosides 8.6 mg tablet (senna) 8.6 mg PO HS PRN Constipation 05/31/23 03/08/25 History
alprazolam 2 mg tablet 2 mg PO QIDPRN PRN anxiety 02/01/24 03/07/25 History
acetaminophen 500 mg tablet 1,000 mg PO Q6HPRN PRN mild pain 09/12/24 03/07/25 History
(Tylenol Extra Strength)
docusate sodium 100 mg capsule 100 mg PO HS PRN Constipation 09/12/24 03/08/25 History
montelukast 10 mg tablet 10 mg PO HS Lung/Breathing Issues 09/12/24 03/08/25 History
therapeutic multivitamin 1 tab PO DAILY Supplement 09/12/24 03/08/25 History
tiotropium bromide 2.5 1 inh inhalation R DAILY 09/12/24 03/07/25 History
mcg/actuation mist for inhalation Lung/Breathing Issues
(Spiriva Respimat)
zolpidem 6.25 mg tablet,extended 6.25 mg PO HSPRN PRN sleep 09/12/24 03/08/25 History
release,multiphase
levalbuterol tartrate 45 2 inh inhalation Q6H PRN shortness 09/15/24 03/07/25 Rx
mcg/actuation aerosol inhaler of breath or wheezing #15 grams
(Xopenex HFA)
dupilumab 300 mg/2 mL subcutaneous 300 mg SC Q2W Lung/Breathing Issues 03/06/25 03/09/25 History
pen injector (Dupixent)
lactulose 10 gram/15 mL oral 10 g PO DAILYPRN PRN constipation 03/06/25 03/08/25 History
solution
oxycodone-acetaminophen 5 mg-325 1 tab PO TIDPRN PRN severe pain 03/06/25 03/08/25 History
mg tablet
prednisone 5 mg tablet 5 mg PO BID Lung/Breathing Issues 03/06/25 03/08/25 History
Review of Systems
-
A 10 point review of systems was completed, and was negative except as per HPI.
Physical Exam
Vital Signs
Temp Pulse Resp BP Pulse Ox
98.4 F 127 25 127/100 100
03/12/25 11:39 03/12/25 14:25 03/12/25 14:00 03/12/25 14:25 03/12/25 13:43
03/11/25 03/12/25 03/13/25
06:59 06:59 06:59
Actual Weight 44.2 kg
Body Mass Index (BMI) 17.3
Lab Results
03/12/25 22:00
03/12/25 05:01
WBC 16.3 10^3/uL (4.8-10.8) H 03/12/25 05:01
Hgb Cancelled 03/12/25 22:00
Hct Cancelled 03/12/25 22:00
Plt Count 333 10^3/uL (130-400) D 03/12/25 05:01
Abs Immat Gran (auto) 0.0 10^3/uL (0-0.05) 03/10/25 05:48
Neutrophils % 66.2 % (42.2-75.2) 03/10/25 05:48
Physical Exam
General: No Apparent Distress
GI: Soft, Non Tender and Other (palpable ventral hernia with colon and hard stool, minimal ttp)
Neuro: AO x 3
Psych: Calm
Data Reviewed
-
CT Scan: Image Personally Visualized and interpreted, Report Reviewed by me, Discussed with Physician and Discussed with Patient
Labs: Labs Reviewed by me
Assessment / Plan
-
70F admitted for COPD exacerbation with new onset n/v overnight in setting of known hiatal hernia, known gastroparesis
Thin lester fluid from NGT.
Unclear if assing flatus.
Denies n/v presently
Imaging demonstrates hard stools in colon, severely dilated stomach with type I hiatal hernia without signs of bowel threat or compromise, known ventral hernia with loss of domain
Plan:
Cr abdomen to assess retained contrast
Plan for UGI to rule out GOO once contrast is cleared from colon
Enemas
GI consult
Not a surgical candidate
GS will follow peripherally
[2025-03-12] MEDS: LOVENOX 30 MG SC (17:04)
[2025-03-12 17:40] LABS: Glucose - Point of Care 113 mg/dl (70-99)
[2025-03-12] MEDS: SINGULAIR PO (21:10)
[2025-03-12] MEDS: CHLORASEPTIC/SORE THROAT SPRAY 1 SPRAY PO (21:14)
[2025-03-12 23:39] LABS: Glucose - Point of Care 77 mg/dl (70-99)
[2025-03-13] VITALS (29 sets, daily range): BP systolic 107–181; BP diastolic 56–126; PULSE 117; O2SAT 99–100; BMI 17.0
[2025-03-13] MEDS: NOVOLOG FLEXPEN-LOW RESISTANCE SC ×4 (00:27→18:26)
--- NOTE | 2025-03-13 00:30 | PTCARENOTE ---
NGT draining liquid brown output. No change in previous assessment. Pt resting comfortably. Will monitor
[2025-03-13] MEDS: MAXIPIME 2000 MG IV ×3 (02:56→18:11)
[2025-03-13] MEDS: STERILE WATER FOR INJECTION 10 ML IV ×3 (02:56→18:11)
--- NOTE | 2025-03-13 04:10 | PTCARENOTE ---
PIV hurting to flush. Unable to obtain additional PIV. Left limb alert, VAT at bedside for midline placement. Labs sent and resulted. AM care done.
[2025-03-13] MEDS: ATIVAN 0.25 MG IV ×3 (05:16→18:42)
[2025-03-13] MEDS: DILAUDID 0.25 MG IV (05:16)
[2025-03-13] MEDS: LR 1000 IV ×2 (05:16→19:26)
[2025-03-13 05:27] LABS: Hemoglobin 10.3 g/dL (12.0-16.0); Mean Corp Hgb Conc. 30.3 g/dL (33.0-37.0); Mean Corpuscular Hgb 29.2 pg (27.0-31.0); Mean Corpuscular Volume 96.3 fL (81.0-99.0); Mean Platelet Volume 9.2 fL (7.4-10.4); Platelet Count 359 10^3/uL (130-400); Red Blood Cell Count 3.53 10^6/uL (4.20-5.40); Red Cell Dist. Width 13.2 % (11.5-14.5)
[2025-03-13 05:50] LABS: Blood Urea Nitrogen 25 mg/dl (7-17); Calcium 9.6 mg/dl (8.4-10.2); Chloride 92 mmol/L (98-107); Estimated Creatinine Clearance 61 ml/min; Glucose 93 mg/dl (70-99); Potassium 3.7 mmol/L (3.5-5.1); Sodium 140 mmol/L (135-145); eGFR > 60.00
[2025-03-13 06:01] LABS: Carbon Dioxide 37 mmol/L (22-30)
[2025-03-13 07:41] LABS: Magnesium 1.5 mg/dl (1.6-2.3); Phosphorus 4.2 mg/dl (2.5-4.5)
[2025-03-13] MEDS: FLOVENT 110 MCG INHALER INH ×2 (07:44→19:56)
--- NOTE | 2025-03-13 08:25 | PTCARENOTE ---
Received pt sitting up in the bed. She is awake and alert. Left nare [place] sump secured @ 55cm. Flushed as ordered with 30ml's and inserted 60ml's air in ARV. Immediately 200ml's green bilious secretions drained. Abdomen with large soft hernia
protruding. Can hear gas movement without auscultating. Off of LIWS she is having BSX4. She was encouraged to frequently change her position and roll side to side to facilitate gastric motility and the movement of the air/stool in her abdomen. Right
midline with LS as ordered. Very diminished breath sounds in her bases. She was encouraged to take frequent slow deep breaths. We discussed the plan of care regarding getting OOB today. Safe environment maintained.
[2025-03-13] MEDS: PROTONIX IV 40 MG IV ×2 (09:04→20:06)
[2025-03-13] MEDS: NSS (PRESERVATIVE FREE) 10 ML IV ×2 (09:04→20:06)
[2025-03-13] MEDS: DECADRON 3 MG IV ×2 (09:04→20:06)
[2025-03-13] MEDS: LOPRESSOR 2.5 MG IV ×2 (09:36→15:57)
[2025-03-13] MEDS: ZOFRAN 4 MG IV ×2 (09:55→15:57)
--- NOTE | 2025-03-13 10:25 | PTCARENOTE ---
Discussed the plan of care with the pt and Dr. Butts at the bedside. No meds via SS at this time. He is aware she had no results from the enemas & suppository yesterday. Dr. Butts will discuss with GI. Still with some nausea after Zofran
administration.
[2025-03-13] MEDS: THERAGRAN PO (10:37)
--- NOTE | 2025-03-13 11:10 | W.PN.HOSP.TC ---
Today's Communication/Plan
-
Continue with NG tube suction
Continue with enemas
Assessment / Plan
Assessment / Plan
Sepsis secondary to CARMELO Pneumonia
#Pseudomonas aeruginosa in the sputum
#Acute hypoxic respiratory failure 2/2 pneumonia/COPD exacerbation
#Acute on chronic hypercarbia
#Acute on chronic COPD 3 L nasal cannula/prednisone dependent
#Former smoker 50-year 1 to 2 pack a day stopped 2022
Initially was placed on BiPAP on admission, did not improve so was intubated 03/06. S/p extubation 03/08. Patient without any respiratory distress. Tolerating nasal cannula and oxygenating okay on 3 L which is her baseline.
COVID/influenza negative
Continue with antibiotics
Legionella and strep negative
Clinically improved. Afebrile. Improved white count , the raise now may be reactive to her bowel issue or steroids. Clinically remains improved. With no wheeze .
With isolation of Pseudomonas aeruginosa antibiotic switched to cefepime. DCed vancomycin and doxycycline.
Taper steroids-switched to oral prednisone. Use nebulizers as needed.
# Nausea vomiting with abdominal discomfort over abdominal wall hernia area.
Patient is chronic abdominal wall hernia and was deemed not operable candidate. She has intermittent nausea due to that and takes antiemetics at home.
S/P NG tube insertion last night due to worsening GI symptoms.
CT shows bowel containing ventral hernia but no evidence of incarceration or strangulation. There was severe distention of the stomach of unclear etiology. There is large amount of residual contrast from yesterday's barium study. Moderate hiatus
hernia noted.
Clinical suspicion is for PSBO due to ventral hernia vs Constipation vs motility . Aggressively manage constipation. No response to Dulcolax suppository or tapwater enema. No response to milk of molasses enema . Will try another MOM enema if ok
from GI.
Doubt now aerophagia due to her respiratory issues as symptomatic despite NG tube
GI following.
Surgery following
#Hx nasal MRSA 09/12/2024
#Chronic Sinus tachycardia
- Continue Corlanor 5 mg twice daily
- Was put on trial of Cardizem for heart rate control. With n.p.o. status will try IV Lopressor as needed for heart rate control. So far without any reactive airways or worsening of shortness of breath with Lopressor use.
#Chronic pain due to large ventral hernia on chronic oral opiates
- Patient follows at [facility]
- Patient takes hydrocodone 1 tab twice daily as needed severe pain will hold for now and resume as needed
- Tylenol as needed mild pain
#History of DM2 used to be on meds states was off due to weight loss
-Accu-Cheks with SSI, HgbA1c 6.5
#Primary hypertension
Continue with nifedipine
Hypothyroidism hx
-Low TSH, normal free T4
#Hyperlipidemia
-Continue Crestor 5 mg at bedtime
#Nonobstructive CAD
2D echo 09/15/2024: EF 55-60%, normal LVS LVSF, no wall abnormality, aortic sclerosis without stenosis, mild/moderate TR normal PASP
Follows with [facility] cardiology
#Upper GI bleed January 2023/gastric ulcers
#Severe esophagitis
#Severe anxiety
- Continue Wellbutrin 300 mg daily, Trintellix 20 mg daily
-Xanax 2 mg p.o. 4 times daily as needed anxiety; currently on 1 mg 4 times daily as needed. No evidence of withdrawal. Patient might want to consider going back after 2 mg dose on discharge.
#Chronic constipation
Patient on Linzess 145 mcg p.o. daily, continue senna 8.6 mg at bedtime
#Seasonal allergies
Continue levocetirizine 5 mg daily as needed
#Insomnia
Hold Ambien 6.25 mg at bedtime as needed
#History of breast cancer status post left lumpectomy surgery and chemotherapy
DVT prophylaxis
Subcu Lovenox
Full code
Discussed with GASTROENTEROLOGY TECHNICIAN
Total time spent on today's encounter was 52 minutes which included time spent in counseling the patient/family regarding diagnosis and treatment plan as listed above, goals of care, and symptom management. Case was discussed with nursing staff,
specialists, and care coordinators/case management. All labs and imaging personally reviewed by me. Remainder the time spent in detailed review of previous records, lab data, imaging, and other medical provider documentation.
Anticipated Discharge: > 48 hours
Subjective/Interval History
-
Date of Service: March 13, 2025
Patient still with NG tube in place. Not having abdominal pain. Occasional nausea. She is passing flatus but no bowel movement with enema yet.
Denies shortness of breath. No chest pain. No fever or chills.
Objective Data
-
Labs:
Laboratory Results
03/13/25
05:11
WBC 16.0 H
Hgb 10.3 L
Hct 34.0 L
Plt Count 359
Sodium 140
Potassium 3.7
Chloride 92 L
Carbon Dioxide 37 H
BUN 25 H
Creatinine 0.6
Glucose 93
Calcium 9.6
Vital Signs:
Vital Signs
Temp Pulse Resp BP Pulse Ox
98.6 F 122 26 136/75 99
03/13/25 07:43 03/13/25 09:36 03/13/25 06:00 03/13/25 09:36 03/13/25 06:00
I&O
03/12/25 03/13/25 03/14/25
06:59 06:59 06:59
Intake Total 30 / 30 770 / 840 340 / 340
Output Total 1600 / 1600 750 / 750
Balance -1570 / -1570 20 / 90 340 / 340
Physical Exam
-
General: Comfortable
HEENT: Moist Mucous Membranes
Respiratory: Clear to Auscultation and Non Labored Respirations; Negative Accessory Resp Muscle Use
Cardiac: Regular Rhythm, S1/S2 and Tachycardic
GI: Soft, Nontender and Other (Ventral hernia without tenderness, and reducible;NG in place)
Neuro: AO x 3
Data Reviewed
-
Labs: Labs Reviewed by me
[2025-03-13] MEDS: CHLORASEPTIC/SORE THROAT SPRAY 1 SPRAY PO ×2 (11:16→14:49)
[2025-03-13 11:21] LABS: Glucose - Point of Care 84 mg/dl (70-99)
--- NOTE | 2025-03-13 12:49 | PTCARENOTE ---
OOB to the chair. She c/o dizziness when she was dangling her feet at the bedside, SBP 140'2. She stood without difficulty and was able to transfer to the shair without difficulty. Left nare [place] sump flushed again and 60ml of air was instilled via
ARV. Green bilious secretions drained. Lungs remain dim bibasilarly. Safe environment maintained.
[2025-03-13] MEDS: MAGNESIUM SULFATE 100 IV (14:36)
--- NOTE | 2025-03-13 15:24 | CM ---
IV AB and IV steroids. NG to suction continues, O2 3L via NC. Discharge POC: TBD. Patient preference of SNF is [facility] and HH is .
[2025-03-13] MEDS: KCL 270 MEQ IV (15:27)
[2025-03-13] MEDS: LOVENOX 30 MG SC (18:11)
[2025-03-13 18:26] LABS: Glucose - Point of Care 110 mg/dl (70-99)
--- NOTE | 2025-03-13 18:32 | PTCARENOTE ---
1 assist back to bed. She tolerated it well. 800ml's out from [place] sump tube. Safe environment maintained.
--- NOTE | 2025-03-13 19:30 | PTCARENOTE ---
Patient received lying in bed, awake, alert and oriented, watching TV. She is without apparent signs of distress or discomfort. She currently denies pain when asked. See corporate director talent assessment charted on worklist flowsheet. NGT via left nare taped in place,
placement verified, flushed, to LIS with green lester clear secretions. With suction off, bowel sounds audible but hypoactive. Patient denies nausea at this time. Respirations tachypneic but nonlabored. Patient denies CP or feelings of SOB. BBS
diminished t/o with fine bibasilar crackles. Good oxygenation on 3L/nc. ST on CM with HR 100-110s on CM. However, short bursts of PAT noted with HR 150-160s unsustained. S1S2 tachy and regular with positive murmur. Right arm midline in place with
IVF infusing. Bed in low and locked position, call jackson within reach.
[2025-03-13] MEDS: CHLORASEPTIC/SORE THROAT SPRAY 2 SPRAY PO (20:05)
[2025-03-13] MEDS: SINGULAIR PO (21:28)
[2025-03-14] VITALS (16 sets, daily range): BP systolic 116–167; BP diastolic 47–92; BMI 16.7
[2025-03-14 00:09] LABS: Glucose - Point of Care 95 mg/dl (70-99)
[2025-03-14] MEDS: NOVOLOG FLEXPEN-LOW RESISTANCE SC ×4 (00:17→17:39)
[2025-03-14] MEDS: MAXIPIME 2000 MG IV ×3 (01:57→17:43)
[2025-03-14] MEDS: STERILE WATER FOR INJECTION 10 ML IV ×3 (01:57→17:43)
[2025-03-14 05:18] LABS: Hematocrit 31.5 % (37.0-47.0); Hemoglobin 9.4 g/dL (12.0-16.0); Mean Corp Hgb Conc. 29.8 g/dL (33.0-37.0); Mean Corpuscular Hgb 28.7 pg (27.0-31.0); Mean Platelet Volume 9.5 fL (7.4-10.4); Platelet Count 360 10^3/uL (130-400); Red Blood Cell Count 3.28 10^6/uL (4.20-5.40); Red Cell Dist. Width 13.3 % (11.5-14.5); White Blood Cell Count 11.6 10^3/uL (4.8-10.8)
--- NOTE | 2025-03-14 05:20 | PTCARENOTE ---
Patient c/o anxiety and nausea. Prn Ativan and Zofran given per order. Emotional support and encouragement given. Nasal bridle coming off. New bridle placed on nose and attached to NGT, 55cm.
[2025-03-14] MEDS: ZOFRAN 4 MG IV ×3 (05:26→20:42)
[2025-03-14] MEDS: ATIVAN 0.25 MG IV ×4 (05:26→19:14)
[2025-03-14 05:39] LABS: Blood Urea Nitrogen 22 mg/dl (7-17); Calcium 9.5 mg/dl (8.4-10.2); Carbon Dioxide 37 mmol/L (22-30); Chloride 95 mmol/L (98-107); Estimated Creatinine Clearance 60 ml/min; Glucose 100 mg/dl (70-99); Potassium 4.1 mmol/L (3.5-5.1); Sodium 141 mmol/L (135-145); eGFR > 60.00
--- NOTE | 2025-03-14 06:51 | PTCARENOTE ---
Report given verbally to Vernell boudreaux RN. Questions answered.
[2025-03-14] MEDS: FLOVENT 110 MCG INHALER 2 PUFF INH (07:35)
[2025-03-14] MEDS: THERAGRAN PO (07:46)
[2025-03-14] MEDS: PROTONIX IV 40 MG IV ×2 (07:47→20:31)
[2025-03-14] MEDS: NSS (PRESERVATIVE FREE) 10 ML IV ×2 (07:47→20:31)
[2025-03-14] MEDS: LOPRESSOR 2.5 MG IV (07:47)
[2025-03-14] MEDS: DECADRON 3 MG IV (07:47)
[2025-03-14] MEDS: LR 1000 IV (07:48)
--- NOTE | 2025-03-14 08:39 | W.PN.HOSP.TC ---
Addendum entered and electronically signed by Augusto Butts MD 03/14/25 16:49:
Acute on chronic hypoxic and hypercapnic respiratory failure
Original Note:
Today's Communication/Plan
-
Repeat milk of molasses enema
Continue with IV fluids
Increased dose of IV Lopressor
Assessment / Plan
Assessment / Plan
Sepsis secondary to CARMELO Pneumonia
#Pseudomonas aeruginosa in the sputum
#Acute hypoxic respiratory failure 2/2 pneumonia/COPD exacerbation
#Acute on chronic hypercarbia
#Acute on chronic COPD 3 L nasal cannula/prednisone dependent
#Former smoker 50-year 1 to 2 pack a day stopped 2022
Initially was placed on BiPAP on admission, did not improve so was intubated 03/06. S/p extubation 03/08. Patient without any respiratory distress. Tolerating nasal cannula and oxygenating okay on 3 L which is her baseline.
COVID/influenza negative
Legionella and strep negative
Clinically improved. Afebrile. Improved white count , the raise now may be reactive to her bowel issue or steroids. Clinically remains improved. With no wheeze .
With isolation of Pseudomonas aeruginosa antibiotic switched to cefepime. Last day of Cefepime after 03/15.
Taper steroids further.
# Nausea vomiting with abdominal discomfort over abdominal wall hernia area.
Patient is chronic abdominal wall hernia and was deemed not operable candidate. She has intermittent nausea due to that and takes antiemetics at home.
S/P NG tube insertion due to worsening GI symptoms.
CT shows bowel containing ventral hernia but no evidence of incarceration or strangulation. There was severe distention of the stomach of unclear etiology. There is large amount of residual contrast from yesterday's barium study. Moderate hiatus
hernia noted.
Clinical suspicion is for PSBO due to ventral hernia vs Constipation vs motility . Aggressively manage constipation. No response to Dulcolax suppository or tapwater enema. No response to milk of molasses enema . Try another milk of molasses.
Abdominal x-ray still shows contrast in the right colon and part of the transverse colon.
GI following.
Surgery following
#Hx nasal MRSA 09/12/2024
#Chronic Sinus tachycardia
- Continue Corlanor 5 mg twice daily
- Was put on trial of Cardizem for heart rate control. With n.p.o. status will try IV Lopressor as needed for heart rate control. So far without any reactive airways or worsening of shortness of breath with Lopressor use.
#Chronic pain due to large ventral hernia on chronic oral opiates
- Patient follows at [facility]
- Patient takes hydrocodone 1 tab twice daily as needed severe pain will hold for now and resume as needed
- Tylenol as needed mild pain
#History of DM2 used to be on meds states was off due to weight loss
-Accu-Cheks with SSI, HgbA1c 6.5
#Primary hypertension
Continue with nifedipine
Hypothyroidism hx
-Low TSH, normal free T4
#Hyperlipidemia
-Continue Crestor 5 mg at bedtime
Hypokalemia/hypomagnesemia-repleted IV yesterday-follow labs
#Nonobstructive CAD
2D echo 09/15/2024: EF 55-60%, normal LVS LVSF, no wall abnormality, aortic sclerosis without stenosis, mild/moderate TR normal PASP
Follows with [facility]
#Upper GI bleed January 2023/gastric ulcers
#Severe esophagitis
#Severe anxiety
- Continue Wellbutrin 300 mg daily, Trintellix 20 mg daily
-Xanax 2 mg p.o. 4 times daily as needed anxiety; currently on 1 mg 4 times daily as needed. No evidence of withdrawal. Patient might want to consider going back after 2 mg dose on discharge.
#Chronic constipation
Patient on Linzess 145 mcg p.o. daily, continue senna 8.6 mg at bedtime
#Seasonal allergies
Continue levocetirizine 5 mg daily as needed
#Insomnia
Hold Ambien 6.25 mg at bedtime as needed
#History of breast cancer status post left lumpectomy surgery and chemotherapy
DVT prophylaxis
Subcu Lovenox
Full code
Discussed with RN
Total time spent on today's encounter was 52 minutes which included time spent in counseling the patient/family regarding diagnosis and treatment plan as listed above, goals of care, and symptom management. Case was discussed with nursing staff,
specialists, and care coordinators/case management. All labs and imaging personally reviewed by me. Remainder the time spent in detailed review of previous records, lab data, imaging, and other medical provider documentation.
Anticipated Discharge: > 48 hours
Subjective/Interval History
-
Date of Service: March 14, 2025
Patient still with no bowel movement. No abdominal pain. She has got an NG tube. Slightly nauseous.
Denies shortness of breath. Stable on 3 L of oxygen which is her home FiO2.
No dizziness.
Objective Data
-
Labs:
Laboratory Results
03/14/25
04:29
WBC 11.6 H
Hgb 9.4 L
Hct 31.5 L
Plt Count 360
Sodium 141
Potassium 4.1
Chloride 95 L
Carbon Dioxide 37 H
BUN 22 H
Creatinine 0.6
Glucose 100 H
Calcium 9.5
Vital Signs:
Vital Signs
Temp Pulse Resp BP Pulse Ox
97.5 F 120 24 133/63 100
03/14/25 04:30 03/14/25 07:47 03/14/25 07:38 03/14/25 07:47 03/14/25 07:38
I&O
03/13/25 03/14/25 03/15/25
06:59 06:59 06:59
Intake Total 770 / 840 2577.5 / 2647.5 170 / 170
Output Total 750 / 750 1455 / 1455 200 / 200
Balance 1122.5 / 1192.5 -30 / -30
Physical Exam
-
General: Comfortable
Respiratory: Non Labored Respirations; Negative Wheezes, Crackles or Accessory Resp Muscle Use
Cardiac: Regular Rhythm, S1/S2 and Tachycardic
GI: Soft, Normal Bowel Sounds and Other (ventral hernia without tenderness ,reducible)
Neuro: AO x 3
Psych: Calm
Data Reviewed
-
Labs: Labs Reviewed by me
[2025-03-14] MEDS: COMPAZINE 5 MG IV ×2 (09:30→17:43)
[2025-03-14] MEDS: LOPRESSOR 5 MG IV ×2 (11:29→17:43)
[2025-03-14 12:17] LABS: Glucose - Point of Care 110 mg/dl (70-99)
[2025-03-14] MEDS: CHLORASEPTIC/SORE THROAT SPRAY 2 SPRAY PO (13:41)
--- NOTE | 2025-03-14 14:33 | PTCARENOTE ---
Rec'd pt at 0700. Pt AAOx3, pleasant and cooperative. Follows commands, ULLOA. Monitor ST 100-120's, PRN Lopressor given. MOM enema given, small loose lester stool afterwards. Voiding via bedpan. IMU LOC.
[2025-03-14 17:38] LABS: Glucose - Point of Care 86 mg/dl (70-99)
[2025-03-14] MEDS: LOVENOX 30 MG SC (17:43)
[2025-03-14] MEDS: FLOVENT 110 MCG INHALER INH (19:48)
[2025-03-14] MEDS: SINGULAIR PO (20:20)
[2025-03-14] MEDS: DECADRON 2 MG IV (20:30)
[2025-03-14] MEDS: CHLORASEPTIC/SORE THROAT SPRAY 1 SPRAY PO (20:31)
--- NOTE | 2025-03-14 22:34 | PTCARENOTE ---
Patient Aox3, VSS, ST on monitor, 3lit NC is patients baseline, diminished throughout. Abd with large hernia. Nausea prn medication given. NG flushed. skin intact, right midline with LR 80ml/hr. pt makes needs known, shes comfortable at the moment.
[2025-03-14 23:57] LABS: Glucose - Point of Care 92 mg/dl (70-99)
[2025-03-15] VITALS (15 sets, daily range): BP systolic 104–167; BP diastolic 50–96; BMI 16.9
[2025-03-15] MEDS: LOPRESSOR 5 MG IV (00:37)
[2025-03-15] MEDS: NOVOLOG FLEXPEN-LOW RESISTANCE SC ×4 (00:38→17:39)
[2025-03-15] MEDS: LR 1000 IV ×3 (00:38→19:36)
--- NOTE | 2025-03-15 00:59 | PTCARENOTE ---
Patient moved to IMU room 1496. report given bedside to RN
[2025-03-15] MEDS: CHLORASEPTIC/SORE THROAT SPRAY 1 SPRAY PO ×3 (01:23→23:11)
[2025-03-15] MEDS: MAXIPIME 2000 MG IV ×3 (01:28→17:31)
[2025-03-15] MEDS: STERILE WATER FOR INJECTION 10 ML IV ×3 (01:28→17:31)
[2025-03-15] MEDS: ATIVAN 0.25 MG IV ×5 (01:29→23:40)
--- NOTE | 2025-03-15 01:52 | PTCARENOTE ---
Received patient as a transfer from ICU. Patient aaox 3, able to make needs known. C/o pain to buttocks and states she is worried her skin is breaking down. RN assessed, no open area, nor area of irritation noted. Barrier ointment applied and
patient repositioned for comfort and pressure relief. Patient on 3L o2 via n/c, pox 94%, no sob or easley noted. Patient NSR to ST on the monitor, hr increases up to 150 for brief periods of time upon arrival to IMU, has remained between 90-110's. Sue
MYLES Osborn notified. Patient has LR at 80ml/hr to right midline. Call jackson within reach, patient using call jackson appropriately. Will continue to monitor.
[2025-03-15] MEDS: ZOFRAN 4 MG IV ×3 (05:09→23:40)
[2025-03-15] MEDS: LOPRESSOR IV (05:11)
[2025-03-15 05:24] LABS: Hematocrit 30.7 % (37.0-47.0); Hemoglobin 9.4 g/dL (12.0-16.0); Mean Corp Hgb Conc. 30.6 g/dL (33.0-37.0); Mean Corpuscular Hgb 29.4 pg (27.0-31.0); Mean Corpuscular Volume 95.9 fL (81.0-99.0); Mean Platelet Volume 9.2 fL (7.4-10.4); Platelet Count 326 10^3/uL (130-400); White Blood Cell Count 9.6 10^3/uL (4.8-10.8)
[2025-03-15 05:48] LABS: Blood Urea Nitrogen 19 mg/dl (7-17); Calcium 9.3 mg/dl (8.4-10.2); Carbon Dioxide 39 mmol/L (22-30); Chloride 94 mmol/L (98-107); Estimated Creatinine Clearance 58 ml/min; Glucose 104 mg/dl (70-99); Magnesium 1.2 mg/dl (1.6-2.3); Potassium 3.9 mmol/L (3.5-5.1); Sodium 140 mmol/L (135-145); eGFR > 60.00
[2025-03-15] MEDS: THERAGRAN PO (07:29)
[2025-03-15] MEDS: FLOVENT 110 MCG INHALER INH (07:30)
[2025-03-15] MEDS: CHLORASEPTIC/SORE THROAT SPRAY 2 SPRAY PO (07:31)
[2025-03-15] MEDS: NSS (PRESERVATIVE FREE) 10 ML IV ×2 (07:40→19:37)
[2025-03-15] MEDS: PROTONIX IV 40 MG IV ×2 (07:40→19:37)
[2025-03-15] MEDS: DECADRON 2 MG IV ×2 (07:40→19:39)
[2025-03-15] MEDS: COMPAZINE 5 MG IV ×2 (07:40→19:37)
--- NOTE | 2025-03-15 07:52 | PTCARENOTE ---
Patient vomited a small clear amount. PRN compazine given. HOB 90 degrees. Care ongoing.
[2025-03-15] MEDS: MORPHINE SULFATE 2 MG IV ×2 (09:12→23:08)
[2025-03-15] MEDS: DUONEB 3 ML INH (11:05)
[2025-03-15 11:55] LABS: Glucose - Point of Care 104 mg/dl (70-99)
[2025-03-15] MEDS: CARDIZEM 125 IV ×2 (12:22→18:22)
--- NOTE | 2025-03-15 12:29 | PTCARENOTE ---
Cardizem gtt started per order. HR in 110-120's. BP stable. Care ongoing.
--- NOTE | 2025-03-15 13:29 | W.PN.HOSP.TC ---
Today's Communication/Plan
-
DC IV beta-sergo
Start on IV Cardizem drip
GI to evaluate again today
IV magnesium sulfate
Assessment / Plan
Assessment / Plan
Sepsis secondary to CARMELO Pneumonia
#Pseudomonas aeruginosa in the sputum
#Acute hypoxic respiratory failure 2/2 pneumonia/COPD exacerbation
#Acute on chronic hypercarbia
#Acute on chronic COPD 3 L nasal cannula/prednisone dependent
#Former smoker 50-year 1 to 2 pack a day stopped 2022
Initially was placed on BiPAP on admission, did not improve so was intubated 03/06. S/p extubation 03/08. Patient without any respiratory distress. Tolerating nasal cannula and oxygenating okay on 3 L which is her baseline.
COVID/influenza negative
Legionella and strep negative
Clinically improved. Afebrile. Improved white count , the raise now may be reactive to her bowel issue or steroids. Clinically remains improved. With no wheeze .
With isolation of Pseudomonas aeruginosa antibiotic switched to cefepime. Last day of Cefepime after 03/15.
Continue current dose of steroids without taper due to active bronchospasm
White count normal.
# Nausea vomiting with abdominal discomfort over abdominal wall hernia area.
Patient is chronic abdominal wall hernia and was deemed not operable candidate. She has intermittent nausea due to that and takes antiemetics at home.
S/P NG tube insertion due to worsening GI symptoms.
CT shows bowel containing ventral hernia but no evidence of incarceration or strangulation. There was severe distention of the stomach of unclear etiology. There is large amount of residual contrast from yesterday's barium study. Moderate hiatus
hernia noted.
Clinical suspicion is for PSBO due to ventral hernia vs Constipation vs motility . Aggressively manage constipation. No response to Dulcolax suppository or tapwater enema. No response to milk of molasses enema.Abdominal x-ray still shows
contrast in the right colon and part of the transverse colon. Tried another MOM enema yesterday without much response.
NG tube still with high output
GI following.
Surgery following
#Hx nasal MRSA 09/12/2024
#Chronic Sinus tachycardia
- Continue Corlanor 5 mg twice daily
- Was put on trial of Cardizem for heart rate control. With n.p.o. status will try IV Lopressor as needed for heart rate control. Patient now symptomatic with shortness of breath and having prior bronchospasm though she is not requiring higher
FiO2. She is on 2 L. I suspect may be beta-sergo induced. Stop beta-blockers. With no enteral access will start on IV Cardizem for heart rate control.
#Chronic pain due to large ventral hernia on chronic oral opiates
- Patient follows at [facility]
- Patient takes hydrocodone 1 tab twice daily as needed severe pain will hold for now and resume as needed
- Tylenol as needed mild pain
#Hypomagnesemia-replete IV
#History of DM2 used to be on meds states was off due to weight loss
-Accu-Cheks with SSI, HgbA1c 6.5
#Primary hypertension
Continue with nifedipine
Hypothyroidism hx
-Low TSH, normal free T4
#Hyperlipidemia
-Continue Crestor 5 mg at bedtime
Hypokalemia/hypomagnesemia-repleted IV yesterday-follow labs
#Nonobstructive CAD
2D echo 09/15/2024: EF 55-60%, normal LVS LVSF, no wall abnormality, aortic sclerosis without stenosis, mild/moderate TR normal PASP
Follows with [facility]
#Upper GI bleed January 2023/gastric ulcers
#Severe esophagitis
#Severe anxiety
- Continue Wellbutrin 300 mg daily, Trintellix 20 mg daily
-Xanax 2 mg p.o. 4 times daily as needed anxiety; currently on 1 mg 4 times daily as needed. No evidence of withdrawal. Patient might want to consider going back after 2 mg dose on discharge.
#Chronic constipation
Patient on Linzess 145 mcg p.o. daily, continue senna 8.6 mg at bedtime
#Seasonal allergies
Continue levocetirizine 5 mg daily as needed
#Insomnia
Hold Ambien 6.25 mg at bedtime as needed
#History of breast cancer status post left lumpectomy surgery and chemotherapy
DVT prophylaxis
Subcu Lovenox
Full code
Discussed with RN
Total time spent on today's encounter was 52 minutes which included time spent in counseling the patient/family regarding diagnosis and treatment plan as listed above, goals of care, and symptom management. Case was discussed with nursing staff,
specialists, and care coordinators/case management. All labs and imaging personally reviewed by me. Remainder the time spent in detailed review of previous records, lab data, imaging, and other medical provider documentation.
Anticipated Discharge: > 48 hours
Subjective/Interval History
-
Date of Service: March 15, 2025
Persistent nausea despite NG tube in place. She is requiring regular Zofran.
No abdominal pain. Passing gas but no bowel movement.
They feel short of breath. No chest pain.
Objective Data
-
Labs:
Laboratory Results
03/15/25
05:08
WBC 9.6
Hgb 9.4 L
Hct 30.7 L
Plt Count 326
Sodium 140
Potassium 3.9
Chloride 94 L
Carbon Dioxide 39 H
BUN 19 H
Creatinine 0.5 L
Glucose 104 H
Calcium 9.3
Vital Signs:
Vital Signs
Temp Pulse Resp BP Pulse Ox
97.7 F 113 36 139/67 99
03/15/25 03:14 03/15/25 12:47 03/15/25 12:47 03/15/25 12:47 03/15/25 12:47
I&O
03/14/25 03/15/25 03/16/25
06:59 06:59 06:59
Intake Total 2577.5 / 2647.5 2150 / 2150 360 / 360
Output Total 1455 / 1455 1650 / 1650
Balance 1122.5 / 1192.5 500 / 500 360 / 360
Review of Systems
-
Neuro: Reports Dizzy
Physical Exam
-
General: No Apparent Distress
HEENT: Moist Mucous Membranes
Respiratory: Wheezes (BL) and Non Labored Respirations; Negative Crackles or Accessory Resp Muscle Use
Cardiac: Regular Rhythm, S1/S2 and Tachycardic
GI: Soft, Normal Bowel Sounds and Other (abdominal ventral Hernia without tenderness)
Neuro: AO x 3
Psych: Calm
Data Reviewed
-
Labs: Labs Reviewed by me
[2025-03-15] MEDS: MAGNESIUM SULFATE 50 IV (13:46)
--- NOTE | 2025-03-15 15:05 | PTCARENOTE ---
Patient AOx3. Patient is anxious. PRN ativan given per DEC. 2L NC with SpO2 greater than 92%. NSR-sinus tach on the monitor. Cardizem gtt at 15/hr. BP stable. Patient c/o nausea at times. PRN medication given per DEC. Patient c/o abdominal pain. PRN
pain medication given per DEC. L nare NG tube with brown output. Q4 flush per order. NPO besides coffee per order. IVF running per order. Call jackson within reach, bed in lowest position, and bed of wheels locked.
[2025-03-15] MEDS: LOVENOX 30 MG SC (17:30)
[2025-03-15 17:50] LABS: Glucose - Point of Care 98 mg/dl (70-99)
[2025-03-15] MEDS: SINGULAIR 10 MG PO (19:42)
[2025-03-15] MEDS: FLOVENT 110 MCG INHALER 2 PUFF INH (19:47)
--- NOTE | 2025-03-15 22:33 | PTCARENOTE ---
Patient aao x3 at start of shift. Denies pain thus far this shift. Anxiety noted and start of shift as well as patient c/o nausea. PRN ativan and prn compazine administered at that time with positive results. NG tube remains to LWIS at this time and
draining brown liquid. Patient remains NPO at this time. Patient continues on 2L o2 n/c with pox ranging from 96-100%. Cardizem gtt remains at 15mg/hr as hr ranging from 80-100 at rest, increases to 110's with movement and anxiety. Call jackson within
reach, patient able to make needs known. Will continue to monitor patient closely.
[2025-03-16] VITALS (13 sets, daily range): BP systolic 113–160; BP diastolic 51–86; PULSE 115; BMI 17.6
[2025-03-16 00:18] LABS: Glucose - Point of Care 114 mg/dl (70-99)
[2025-03-16] MEDS: NOVOLOG FLEXPEN-LOW RESISTANCE SC ×4 (00:35→17:30)
[2025-03-16] MEDS: MAXIPIME 2000 MG IV ×2 (01:43→10:26)
[2025-03-16] MEDS: STERILE WATER FOR INJECTION 10 ML IV ×2 (01:43→10:26)
[2025-03-16] MEDS: CARDIZEM 125 IV ×3 (01:43→15:07)
[2025-03-16 04:26] LABS: Hematocrit 30.7 % (37.0-47.0); Hemoglobin 9.4 g/dL (12.0-16.0); Mean Corp Hgb Conc. 30.6 g/dL (33.0-37.0); Mean Corpuscular Hgb 28.8 pg (27.0-31.0); Mean Corpuscular Volume 94.2 fL (81.0-99.0); Mean Platelet Volume 9.3 fL (7.4-10.4); Platelet Count 323 10^3/uL (130-400); Red Blood Cell Count 3.26 10^6/uL (4.20-5.40); White Blood Cell Count 8.4 10^3/uL (4.8-10.8)
[2025-03-16] MEDS: ATIVAN 0.25 MG IV ×4 (04:50→20:12)
[2025-03-16] MEDS: ZOFRAN 4 MG IV (04:50)
[2025-03-16 04:52] LABS: Blood Urea Nitrogen 13 mg/dl (7-17); Calcium 8.8 mg/dl (8.4-10.2); Carbon Dioxide 33 mmol/L (22-30); Chloride 96 mmol/L (98-107); Estimated Creatinine Clearance 58 ml/min; Glucose 122 mg/dl (70-99); Magnesium 1.3 mg/dl (1.6-2.3); Potassium 3.6 mmol/L (3.5-5.1); Sodium 139 mmol/L (135-145); eGFR > 60.00
[2025-03-16 05:12] LABS: Glucose - Point of Care 120 mg/dl (70-99)
[2025-03-16] MEDS: MORPHINE SULFATE 2 MG IV ×3 (05:19→17:27)
[2025-03-16] MEDS: THERAGRAN PO (07:14)
[2025-03-16] MEDS: FLOVENT 110 MCG INHALER 2 PUFF INH ×2 (07:14→19:38)
[2025-03-16] MEDS: CHLORASEPTIC/SORE THROAT SPRAY 2 SPRAY PO ×3 (07:33→17:00)
[2025-03-16] MEDS: DECADRON 2 MG IV ×2 (07:35→20:09)
[2025-03-16] MEDS: NSS (PRESERVATIVE FREE) 10 ML IV ×2 (07:35→20:10)
[2025-03-16] MEDS: COMPAZINE 5 MG IV (07:35)
[2025-03-16] MEDS: PROTONIX IV 40 MG IV ×2 (07:35→20:10)
[2025-03-16] MEDS: LR 1000 IV ×2 (08:50→20:09)
[2025-03-16] MEDS: DUONEB 3 ML INH (08:59)
[2025-03-16 11:44] LABS: Glucose - Point of Care 126 mg/dl (70-99)
--- NOTE | 2025-03-16 13:39 | W.PN.HOSP.TC ---
Today's Communication/Plan
-
NGT
IVF
IV ccb
await for ROBF
Assessment / Plan
Assessment / Plan
Sepsis secondary to CARMELO Pneumonia
#Pseudomonas aeruginosa in the sputum
#Acute hypoxic respiratory failure 2/2 pneumonia/COPD exacerbation
#Acute on chronic hypercarbia
#Acute on chronic COPD 3 L nasal cannula/prednisone dependent
#Former smoker 50-year 1 to 2 pack a day stopped 2022
Initially was placed on BiPAP on admission, did not improve so was intubated 03/06. S/p extubation 03/08. Patient without any respiratory distress. Tolerating nasal cannula and oxygenating okay on 3 L which is her baseline.
COVID/influenza negative
Legionella and strep negative
Clinically improved. Afebrile. Improved white count , the raise now may be reactive to her bowel issue or steroids. Clinically remains improved. With no wheeze .
With isolation of Pseudomonas aeruginosa antibiotic switched to cefepime.
Continue current dose of steroids
White count normal.
# Nausea vomiting with abdominal discomfort over abdominal wall hernia area.
#Hx of gastroparesis, hiatal hernia
She has intermittent nausea due to that and takes antiemetics at home.
S/P NG tube insertion due to worsening GI symptoms.
CT shows bowel containing ventral hernia but no evidence of incarceration or strangulation. There was severe distention of the stomach of unclear etiology. There is large amount of residual contrast from yesterday's barium study. Moderate hiatus
hernia noted.
Clinical suspicion is for PSBO due to ventral hernia vs Constipation vs motility . Aggressively manage constipation. No response to Dulcolax suppository or tapwater enema. No response to milk of molasses enema.Abdominal x-ray still shows
contrast in the right colon and part of the transverse colon. Tried another MOM enema yesterday without much response.
NG tube still with high output
AXR with persistent contrast in colon-await for passage for SBFT
GI following.
Surgery following
#Hx nasal MRSA 09/12/2024
#Chronic Sinus tachycardia
- Was put on trial of Cardizem for heart rate control. With n.p.o. status will try IV Lopressor as needed for heart rate control. Patient now symptomatic with shortness of breath and having prior bronchospasm though she is not requiring higher
FiO2. She is on 2 L. I suspect may be beta-sergo induced. Stop beta-blockers. With no enteral access will start on IV Cardizem for heart rate control.
#Chronic pain due to large ventral hernia on chronic oral opiates
- Patient follows at [facility]
- Patient takes hydrocodone 1 tab twice daily as needed severe pain will hold for now and resume as needed
- Tylenol as needed mild pain
#Hypomagnesemia-replete IV
#History of DM2 used to be on meds states was off due to weight loss
-Accu-Cheks with SSI, HgbA1c 6.5
#Primary hypertension
Continue with nifedipine
Hypothyroidism hx
-Low TSH, normal free T4
#Hyperlipidemia
-Continue Crestor 5 mg at bedtime
Hypokalemia/hypomagnesemia-repleted IV yesterday-follow labs
#Nonobstructive CAD
2D echo 09/15/2024: EF 55-60%, normal LVS LVSF, no wall abnormality, aortic sclerosis without stenosis, mild/moderate TR normal PASP
Follows with [facility] cardiology
#Upper GI bleed January 2023/gastric ulcers
#Severe esophagitis
#Severe anxiety
- Continue Wellbutrin 300 mg daily, Trintellix 20 mg daily
-Xanax 2 mg p.o. 4 times daily as needed anxiety; currently on 1 mg 4 times daily as needed. No evidence of withdrawal. Patient might want to consider going back after 2 mg dose on discharge.
#Chronic constipation
Patient on Linzess 145 mcg p.o. daily, continue senna 8.6 mg at bedtime
#Seasonal allergies
Continue levocetirizine 5 mg daily as needed
#Insomnia
Hold Ambien 6.25 mg at bedtime as needed
#History of breast cancer status post left lumpectomy surgery and chemotherapy
DVT prophylaxis
Subcu Lovenox
Full code
Discussed with RN
.
Anticipated Discharge: > 48 hours
Subjective/Interval History
-
Date of Service: March 16, 2025
Remains with abdominal pain
No bowel movements overnight
Remains with significant NG tube output
Objective Data
-
Labs:
Laboratory Results
03/16/25
04:12
WBC 8.4
Hgb 9.4 L
Hct 30.7 L
Plt Count 323
Sodium 139
Potassium 3.6
Chloride 96 L
Carbon Dioxide 33 H
BUN 13
Creatinine 0.5 L
Glucose 122 H
Calcium 8.8
Vital Signs:
Vital Signs
Temp Pulse Resp BP Pulse Ox
98.3 F 91 36 137/69 98
03/16/25 11:05 03/16/25 12:00 03/16/25 12:00 03/16/25 12:00 03/16/25 12:00
I&O
03/15/25 03/16/25 03/17/25
06:59 06:59 06:59
Intake Total 2150 / 2150 820 / 820
Output Total 1650 / 1650 1700 / 1700
Balance 500 / 500 -880 / -880
Physical Exam
-
General: No Apparent Distress, Appears Chronically Ill and Cachectic
HEENT: Moist Mucous Membranes and Oxygen
Respiratory: Wheezes, Non Labored Respirations and Decreased Breath Sounds; Negative Crackles or Accessory Resp Muscle Use
Cardiac: Regular Rhythm, S1/S2 and Tachycardic
GI: Soft, Normal Bowel Sounds and Other (abdominal ventral Hernia without tenderness. NGT w/output noted )
Neuro: Awake and AO x 3
Psych: Calm
Data Reviewed
-
Total Time Spent with Patient (in minutes): 55
[2025-03-16] MEDS: STERILE WATER FOR INJECTION IV (17:01)
[2025-03-16] MEDS: LOVENOX 30 MG SC (17:27)
[2025-03-16 17:41] LABS: Glucose - Point of Care 113 mg/dl (70-99)
--- NOTE | 2025-03-16 19:00 | W.PN.GI.CBS2 ---
Today's Communication / Plan
-
NGT clamp trial
Assessment / Plan
-
69-year-old female with PMH of COPD , former smoker, asthma, NIDDM, chronic pain on narcotics at home, hypothyroid, HTN, HLD, large ventral hernia/PEH(per notes prior eval at [facility] not surgical candidate due to resp status), GERD constipation
UGIB secondary to severe esophagitis with circumferential ulceration and overlying clot 02/08/23, constipation, hx Breast CA s/p lumpectomy CTX/XRT present 03/06 for admission for fever and shortness of breath with concern for sepsis with PNA and
hypoxemia requiring intubation on admission. She had been managed by hospitalist and pulm team for treatment. she has been on low dose Lovenox, inhaler, PO prednisone, Protonix, bowel regiment(senna, colace, Miralax, and Linzess) and multiple
chronic medications. She states resp status was improving but noted increased nausea, distention and pain with hernia. Se began with coffee ground emesis and asked to eval. CT 03/11 with bowel containing ventral hernia no incarceration or
strangulation, severe distention on stomach with large amount of residual contrast from prior barium study, moder HH,renal cyst prior hugo, diverticulosis and adnexal cyst.
Called back for constipation. Her recent CT scan (markedly distended stomach concerning for possible GOO) seems chronic as it was also observed about 1 year ago. Trial of clamping NGT. If she tolerates, sips of water and osmotic laxative (miralax
or lactulose) orally.
Total Time Spent with Patient (in minutes): 35
Subjective
Subjective
Date of Service: March 16, 2025
No BM
Objective
Data Reviewed
Laboratory Data:
Laboratory Results
03/16/25 04:12
03/16/25 04:12
Laboratory Results
PT 13.4 Sec (11.4-14.6) 03/07/25 04:00
INR 0.99 03/07/25 04:00
APTT 26.9 Sec (23.4-35.0) 03/07/25 04:00
Phosphorus 4.2 mg/dl (2.5-4.5) 03/13/25 05:11
Magnesium 1.3 mg/dl (1.6-2.3) L 03/16/25 04:12
Total Bilirubin 0.5 mg/dl (0.2-1.3) 03/10/25 05:48
AST 37 U/L (14-36) H 03/10/25 05:48
ALT 30 U/L (0-35) 03/10/25 05:48
Alkaline Phosphatase 61 U/L (38-126) 03/10/25 05:48
Vital Signs and I&O:
Vital Signs
Temp Pulse Resp BP Pulse Ox
98.3 F 85 26 149/69 100
03/16/25 15:34 03/16/25 18:00 03/16/25 18:00 03/16/25 18:00 03/16/25 18:00
I&O
03/15/25 03/16/25 03/17/25
06:59 06:59 06:59
Intake Total 2150 / 2150 820 / 820 1790 / 1790
Output Total 1650 / 1650 1700 / 1700 1100 / 1100
Balance 500 / 500 -880 / -880 690 / 690
[2025-03-16] MEDS: SINGULAIR PO (20:12)
[2025-03-16] MEDS: CHLORASEPTIC/SORE THROAT SPRAY 1 SPRAY PO (20:14)
[2025-03-17] VITALS (14 sets, daily range): BP systolic 122–181; BP diastolic 58–133; BMI 16.5
[2025-03-17] MEDS: NOVOLOG FLEXPEN-LOW RESISTANCE SC ×4 (00:12→18:27)
[2025-03-17] MEDS: STERILE WATER FOR INJECTION IV ×3 (00:12→18:14)
[2025-03-17 00:22] LABS: Glucose - Point of Care 121 mg/dl (70-99)
[2025-03-17] MEDS: MORPHINE SULFATE 2 MG IV ×3 (04:22→17:58)
[2025-03-17] MEDS: CARDIZEM 125 IV (04:23)
[2025-03-17] MEDS: CHLORASEPTIC/SORE THROAT SPRAY 1 SPRAY PO (04:24)
[2025-03-17 05:28] LABS: % Immature Granulocytes 0.2 % (0-0.5); % Lymphocytes 18.3 % (20.5-51.1); % Monocytes 5.3 % (1.7-9.3); % Neutrophils 76.2 % (42.2-75.2); Absolute Lymphocytes 1.2 10^3/uL (1.2-3.4); Absolute Monocytes 0.3 10^3/uL (0.1-0.6); Absolute Neutrophils 4.9 10^3/uL (1.4-6.5); Hematocrit 31.8 % (37.0-47.0); Mean Corp Hgb Conc. 31.4 g/dL (33.0-37.0); Mean Corpuscular Hgb 28.6 pg (27.0-31.0); Mean Corpuscular Volume 90.9 fL (81.0-99.0); Mean Platelet Volume 9.3 fL (7.4-10.4); Nucleated Red Blood Cells % 0 %; Platelet Count 343 10^3/uL (130-400); White Blood Cell Count 6.4 10^3/uL (4.8-10.8)
[2025-03-17 05:43] LABS: Blood Urea Nitrogen 10 mg/dl (7-17); Calcium 9.2 mg/dl (8.4-10.2); Carbon Dioxide 38 mmol/L (22-30); Chloride 95 mmol/L (98-107); Estimated Creatinine Clearance 56 ml/min; Glucose 133 mg/dl (70-99); Potassium 3.5 mmol/L (3.5-5.1); Sodium 139 mmol/L (135-145); eGFR > 60.00
[2025-03-17] MEDS: ATIVAN 0.25 MG IV ×3 (06:21→22:51)
[2025-03-17 06:27] LABS: Glucose - Point of Care 110 mg/dl (70-99)
[2025-03-17] MEDS: DECADRON 2 MG IV ×2 (07:57→22:38)
[2025-03-17] MEDS: NSS (PRESERVATIVE FREE) 10 ML IV ×2 (07:58→22:37)
[2025-03-17] MEDS: PROTONIX IV 40 MG IV ×2 (07:58→22:37)
[2025-03-17] MEDS: COMPAZINE 5 MG IV (07:58)
[2025-03-17] MEDS: LR 1000 IV (07:58)
[2025-03-17] MEDS: THERAGRAN PO (07:59)
[2025-03-17] MEDS: FLOVENT 110 MCG INHALER 2 PUFF INH ×2 (08:22→20:08)
--- NOTE | 2025-03-17 11:34 | CM ---
Met with patient who continues to not feel well. Concerned with feeling of constipation. GI recommends clamping NG trial. Discharge Plan of Care: Therapy recommendation is SNF. Referral to preference of [facility] previously forwarded.
--- NOTE | 2025-03-17 12:03 | W.PN.GI.CBS2 ---
Today's Communication / Plan
-
surgery reduced ventral hernia; trial of miralax
Assessment / Plan
-
70 yo F pmh large ventral hernia/PEH (per notes prior eval at [facility] not candidate due to respiratory status), UGIB 2/2 esophagitis in 2022, breast ca, p/w fever SOB 5/9 cc/w PNA. However now having coffee ground emesis GI asked to evaluate seen on
03/[address] 03/11 with bowel containing ventral hernia no incarceration or strangulation, severe distention on stomach with large amount of residual contrast from prior barium study. Dr. Fitch also saw her on 03/12 and recommended UGI
once contrast cleared from colon. Of note, reviewing records, CT in 2023 showed the same had pt had an UGIS then showed delayed emptying of contrast from stomach into duodenum, moderate sized PEH, large midline anterior abdominal wall hernia.
With her ongoing significant output from the NGT and not having BM concerning for obstruction. I d/w Dr. Inman from surgery who saw the patient and reduced the hernia and recommended an abdominal binder and miralax. If no improvement in 1-2 days
may need transfer to [place] due to complexity of post op care with surgery.
D/w Dr. Cazares.
GI will sign off and call with questions.
Total Time Spent with Patient (in minutes): 50
Subjective
Subjective
Date of Service: March 17, 2025
Patient still with 1900 out overnight from NGT
No BM
Xray still with contrast in the colon
Pt with nausea
Objective
Data Reviewed
Laboratory Data:
Laboratory Results
03/17/25 04:59
03/17/25 04:59
Laboratory Results
PT 13.4 Sec (11.4-14.6) 03/07/25 04:00
INR 0.99 03/07/25 04:00
APTT 26.9 Sec (23.4-35.0) 03/07/25 04:00
Phosphorus 4.2 mg/dl (2.5-4.5) 03/13/25 05:11
Magnesium 1.3 mg/dl (1.6-2.3) L 03/16/25 04:12
Total Bilirubin 0.5 mg/dl (0.2-1.3) 03/10/25 05:48
AST 37 U/L (14-36) H 03/10/25 05:48
ALT 30 U/L (0-35) 03/10/25 05:48
Alkaline Phosphatase 61 U/L (38-126) 03/10/25 05:48
Vital Signs and I&O:
Vital Signs
Temp Pulse Resp BP Pulse Ox
97.3 F 115 39 138/71 100
03/17/25 07:40 03/17/25 10:00 03/17/25 10:00 03/17/25 10:00 03/17/25 10:00
I&O
03/16/25 03/17/25 03/18/25
06:59 06:59 06:59
Intake Total 820 / 820 1850 / 1850
Output Total 1700 / 1700 1900 / 1900
Balance -880 / -880 -50 / -50
Physical Exam
Physical Exam
GI: Other (ventral hernia, feel organs inside, hard)
Neuro: Non Focal
[2025-03-17] MEDS: MIRALAX 17 GRAMS TUBE (13:31)
[2025-03-17 13:40] LABS: Glucose - Point of Care 112 mg/dl (70-99)
[2025-03-17] MEDS: ZOFRAN 4 MG IV ×2 (13:42→22:51)
--- NOTE | 2025-03-17 13:59 | W.PN.HOSP.TC ---
Addendum entered and electronically signed by Tristian Cazares MD 03/17/25 14:42:
Updated daughter over the phone once again in details. All questions were answered.
Original Note:
Today's Communication/Plan
-
Reduction of hernia
MiraLAX via NG tube
Continue with IV fluids
Continue with IV medication
Assessment / Plan
Assessment / Plan
#Sepsis secondary to CARMELO Pneumonia
#Pseudomonas aeruginosa in the sputum
#Acute hypoxic respiratory failure 2/2 pneumonia/COPD exacerbation
#Acute on chronic hypercarbia
#Acute on chronic COPD 3 L nasal cannula/prednisone dependent
#Former smoker 50-year 1 to 2 pack a day stopped 2022
Initially was placed on BiPAP on admission, did not improve so was intubated 03/06. S/p extubation 03/08. Patient without any respiratory distress. Tolerating nasal cannula and oxygenating okay on 3 L which is her baseline.
COVID/influenza negative
Legionella and strep negative
Clinically improved. Afebrile. Improved white count , the raise now may be reactive to her bowel issue or steroids. Clinically remains improved. With no wheeze .
With isolation of Pseudomonas aeruginosa antibiotic switched to cefepime. Completed course.
Continue current dose of steroids
White count normal.
# Nausea vomiting with abdominal discomfort over abdominal wall hernia area.
#Hx of gastroparesis, hiatal hernia
Patient stated she followed up with surgeon at [facility] and told was not a surgical candidate due to severe COPD
She has intermittent nausea due to that and takes antiemetics at home.
S/P NG tube insertion due to worsening GI symptoms.
CT shows bowel containing ventral hernia but no evidence of incarceration or strangulation. There was severe distention of the stomach of unclear etiology. There is large amount of residual contrast from yesterday's barium study. Moderate hiatus
hernia noted.
Clinical suspicion is for PSBO and ?colonic obstruction in ventral hernia vs Constipation. No response to aggressive bowel regimen
NG tube still with high output
AXR with persistent contrast in colon-await for passage for SBFT
s/p reduction of hernia by surgery on 03/17- Passed flatulence. Miralax via NGT. Abdominal binder on at all times.
Surgery following
#Hx nasal MRSA 09/12/2024
#Chronic Sinus tachycardia
- Was put on trial of Cardizem for heart rate control. With n.p.o. status will try IV Lopressor as needed for heart rate control. Patient now symptomatic with shortness of breath and having prior bronchospasm though she is not requiring higher
FiO2. She is on 2 L. I suspect may be beta-sergo induced. Stop beta-blockers. With no enteral access will start on IV Cardizem for heart rate control.
#Chronic pain due to large ventral hernia on chronic oral opiates
- Patient follows at [facility]
- Patient takes hydrocodone 1 tab twice daily as needed severe pain will hold for now and resume as needed
- Tylenol as needed mild pain
#Hypomagnesemia-replete IV
#History of DM2 used to be on meds states was off due to weight loss
-Accu-Cheks with SSI, HgbA1c 6.5
#Primary hypertension
Continue with nifedipine once able to take p.o.
Hypothyroidism hx
-Low TSH, normal free T4
#Hyperlipidemia
-Restart home regimen once able to take p.o.
Hypokalemia/hypomagnesemia-replete as needed
#Nonobstructive CAD
2D echo 09/15/2024: EF 55-60%, normal LVS LVSF, no wall abnormality, aortic sclerosis without stenosis, mild/moderate TR normal PASP
Follows with [facility]
#Upper GI bleed January 2023/gastric ulcers
#Severe esophagitis
#Severe anxiety
Restart home regimen once able to take p.o.
`
#History of breast cancer status post left lumpectomy surgery and chemotherapy
DVT prophylaxis
Subcu Lovenox
Full code
d/w with GI and surgery
update patient daughter over the phone in details x 2 today
.
Anticipated Discharge: > 48 hours
Subjective/Interval History
-
Date of Service: March 17, 2025
states of passing flatulence after her hernia was reduce earlier today
Objective Data
-
Labs:
Laboratory Results
03/17/25
04:59
WBC 6.4
Hgb 10.0 L
Hct 31.8 L
Plt Count 343
Sodium 139
Potassium 3.5
Chloride 95 L
Carbon Dioxide 38 H
BUN 10
Creatinine 0.4 L
Glucose 133 H
Calcium 9.2
Vital Signs:
Vital Signs
Temp Pulse Resp BP Pulse Ox
97.7 F 115 39 138/71 100
03/17/25 11:08 03/17/25 10:00 03/17/25 10:00 03/17/25 10:00 03/17/25 10:00
I&O
03/16/25 03/17/25 03/18/25
06:59 06:59 06:59
Intake Total 820 / 820 1850 / 1850
Output Total 1700 / 1700 1900 / 1900
Balance -880 / -880 -50 / -50
--- NOTE | 2025-03-17 15:20 | W.PN.GS2 ---
Today's Communication / Plan
-
-- Abdominal binder
-- Miralax daily, maintain NGT
-- Daily enemas
Assessment / Plan
-
Patient is a 70 yo F p/w bowel obstruction secondary to a ventral hernia
No evidence of bowel ischemia or perforation. Bowel and hernia easily reduced at bedside. Patient is at high risk for operative complications and has been deemed a nonoperative candidate by [facility] secondary to pulmonary issues. No plans for
surgical repair at . Recommend abdominal binder. Recommend MiraLAX via her NGT and continued enemas. If return of bowel function will plan for discharge with outpatient follow-up at [facility]. If no return of bowel function and continued issues
would transfer to a tertiary care center for further management.
-- Abdominal binder
-- Miralax daily, maintain NGT
-- Daily enemas
Subjective Data
-
Date of Service: March 17, 2025
No significant complaints. No BM in days despite enemas and NGT decompression. Continued intermittent nausea.
Objective Data
-
Intake and Output
03/16/25 03/17/25 03/18/25
06:59 06:59 06:59
Intake Total 820 / 820 1850 / 1850
Output Total 1700 / 1700 1899 / 1899
Balance -880 / -880 -50 / -50
Intake:
Oral fluids 720 / 720 830 / 830
IV fluids (Total) 960 / 960
Amount instilled into GI Tube ( 100 / 100 60 / 60
Total)
[place] Sump 100 / 100 60 / 60
Output:
Gastrointestinal tube output ( 1700 / 1700 190 / 1900
Total)
[place] Sump 1700 / 1700 190 / 1900
Other:
Number of approximated MODERATE 1 2
amounts of urine
Number of approximated LARGE 1 1
amounts of urine
Vital Signs
Temp Pulse Resp BP Pulse Ox
97.7 F 115 39 138/71 100
03/17/25 11:08 03/17/25 10:00 03/17/25 10:00 03/17/25 10:00 03/17/25 10:00
Lab Results
03/17/25 04:59
03/17/25 04:59
Calcium 9.2 mg/dl (8.4-10.2) 03/17/25 04:59
Phosphorus 4.2 mg/dl (2.5-4.5) 03/13/25 05:11
Magnesium 1.3 mg/dl (1.6-2.3) L 03/16/25 04:12
Total Bilirubin 0.5 mg/dl (0.2-1.3) 03/10/25 05:48
AST 37 U/L (14-36) H 03/10/25 05:48
ALT 30 U/L (0-35) 03/10/25 05:48
Alkaline Phosphatase 61 U/L (38-126) 03/10/25 05:48
Total Protein 5.6 g/dl (6.3-8.2) L 03/10/25 05:48
Albumin 3.1 g/dl (3.5-5.0) L 03/10/25 05:48
Physical Exam
-
Gen: NAD
Abd: soft, NT, moderate distension, non-peritoneal, palpable epigastric hernia, palpable colon can stool, soft, no skin changes, reduced
Patient has a rios catheter: No
Patient has a central line: No
[2025-03-17] MEDS: LOVENOX 30 MG SC (17:58)
[2025-03-17] MEDS: KCL 1010 MEQ IV (18:19)
[2025-03-17 18:37] LABS: Glucose - Point of Care 101 mg/dl (70-99)
--- NOTE | 2025-03-17 20:04 | PTCARENOTE ---
day shift note. assessment as charted. ng draing large amounts brown fluid. medicated prn for pain and nausea. hernia reduced at bedside by surgeon and abdominal binder placed. milk and molasses enema to be given, reported to oncoming rn.
[2025-03-18] VITALS (17 sets, daily range): BP systolic 117–181; BP diastolic 67–88; PULSE 102; BMI 17.2
[2025-03-18 00:41] LABS: Glucose - Point of Care 107 mg/dl (70-99)
[2025-03-18] MEDS: NOVOLOG FLEXPEN-LOW RESISTANCE SC ×5 (00:55→23:32)
[2025-03-18] MEDS: STERILE WATER FOR INJECTION IV ×3 (01:08→19:50)
[2025-03-18] MEDS: COMPAZINE 5 MG IV ×2 (02:52→12:16)
[2025-03-18] MEDS: ATIVAN 0.25 MG IV ×5 (02:53→23:28)
[2025-03-18 04:40] LABS: % Basophils 0.1 % (0-2); % Immature Granulocytes 0.5 % (0-0.5); % Lymphocytes 9.7 % (20.5-51.1); % Monocytes 4.9 % (1.7-9.3); % Neutrophils 84.8 % (42.2-75.2); Absolute Immature Granulocytes 0.1 10^3/uL (0-0.05); Absolute Lymphocytes 1.1 10^3/uL (1.2-3.4); Absolute Monocytes 0.5 10^3/uL (0.1-0.6); Absolute Neutrophils 9.2 10^3/uL (1.4-6.5); Hematocrit 31.2 % (37.0-47.0); Hemoglobin 9.8 g/dL (12.0-16.0); Mean Corp Hgb Conc. 31.4 g/dL (33.0-37.0); Mean Corpuscular Hgb 28.9 pg (27.0-31.0); Mean Platelet Volume 9.5 fL (7.4-10.4); Nucleated Red Blood Cells % 0 %; Platelet Count 317 10^3/uL (130-400); Red Blood Cell Count 3.39 10^6/uL (4.20-5.40); Red Cell Dist. Width 13.2 % (11.5-14.5); White Blood Cell Count 10.9 10^3/uL (4.8-10.8)
[2025-03-18 05:06] LABS: Blood Urea Nitrogen 14 mg/dl (7-17); Calcium 9.3 mg/dl (8.4-10.2); Carbon Dioxide 38 mmol/L (22-30); Chloride 95 mmol/L (98-107); Estimated Creatinine Clearance 59 ml/min; Glucose 130 mg/dl (70-99); Potassium 3.3 mmol/L (3.5-5.1); Sodium 139 mmol/L (135-145); eGFR > 60.00
[2025-03-18 05:20] LABS: Glucose - Point of Care 121 mg/dl (70-99)
--- NOTE | 2025-03-18 05:30 | PTCARENOTE ---
Assumed care of pt from francesca RN. Pt ox3, anxious and forgetful. PRN Ativan given for anxiety (see MAR). NSR on monitor. Cardizem gtt infusing at 2.5 mg/hr. IVF infusing. Pt 99% on 2L NC. L nare NGT to low intermittent suction, irrigated q4
hours. milk and molasses enema administered with no relief. Pt stated she has had flatulence. Pt resting in bed with call jackson in reach.
[2025-03-18] MEDS: KCL 160 MEQ IV (06:33)
[2025-03-18] MEDS: KCL 1010 MEQ IV (06:33)
[2025-03-18] MEDS: ZOFRAN 4 MG IV ×2 (07:48→18:15)
[2025-03-18] MEDS: MIRALAX 17 GRAMS TUBE (07:49)
[2025-03-18] MEDS: NSS (PRESERVATIVE FREE) 10 ML IV ×2 (07:49→19:57)
[2025-03-18] MEDS: PROTONIX IV 40 MG IV ×2 (07:49→19:58)
[2025-03-18] MEDS: DECADRON 2 MG IV ×2 (07:49→19:57)
[2025-03-18] MEDS: FLUSH (NSS) 1 FLUSH IV ×2 (07:50→14:26)
[2025-03-18] MEDS: FLOVENT 110 MCG INHALER 2 PUFF INH ×2 (08:18→20:02)
[2025-03-18] MEDS: MORPHINE SULFATE 2 MG IV ×3 (09:01→21:34)
--- NOTE | 2025-03-18 09:28 | PN.CDI ---
CDI
- -
CDI:
Physician Documentation Request
Admit Date: 03/06/25 13:35
Dear Doctor Debora ,
Please review the following and provide your response in the progress notes.
Clinical Indicators:
PN, 03/17
#Sepsis secondary to CARMELO Pneumonia
#Pseudomonas aeruginosa in the sputum
#...Clinically improved.
#...With isolation of Pseudomonas aeruginosa antibiotic switched to cefepime.
#...Completed course.
Based on the above, please clarify in the Progress Notes further specificity regarding the known, suspected or likely type of pneumonia treated ...
Gram negative Pneumonia - indicate if Pseudomonas, Klebsiella or other
Other type
Use of terms such as suspected, likely, concern for, or probable (associated with a specific diagnosis that is being evaluated, monitored, or treated as if it exists) are acceptable and can be coded in the inpatient setting, when documented at the
time of discharge.
Thank you,
Jocy Ferrer RN BSN CCDS
CDI Specialist
Please contact via tiger text
Please use your independent medical judgment in providing your response.
[2025-03-18 12:23] LABS: Glucose - Point of Care 85 mg/dl (70-99)
--- NOTE | 2025-03-18 13:15 | W.PN.HOSP.TC ---
Today's Communication/Plan
-
miralax daily via NGT
Daily enema
IVF
IV steroids
may need to consider nutrition
Assessment / Plan
Assessment / Plan
# Nausea vomiting with abdominal discomfort over abdominal wall hernia area.
#Hx of gastroparesis, hiatal hernia
Patient stated she followed up with surgeon at [facility] and told was not a surgical candidate due to severe COPD
She has intermittent nausea due to that and takes antiemetics at home.
S/P NG tube insertion due to worsening GI symptoms.
CT shows bowel containing ventral hernia but no evidence of incarceration or strangulation. There was severe distention of the stomach of unclear etiology. There is large amount of residual contrast from yesterday's barium study. Moderate hiatus
hernia noted.
Clinical suspicion is for PSBO and ?colonic obstruction in ventral hernia vs Constipation. No response to aggressive bowel regimen
NG tube remains with output
s/p reduction of hernia by surgery on 03/17- Passed flatulence. Miralax via NGT. Abdominal binder on at all times.
Daily enema for now
LR w/KCL
Monitor nutrition intake-may need to consider TPN if continues to remains NPO.
Surgery following
#Sepsis secondary to CARMELO Pneumonia
#Pseudomonas aeruginosa in the sputum
#Acute hypoxic respiratory failure 2/2 pneumonia/COPD exacerbation
#Acute on chronic hypercarbia
#Acute on chronic COPD 3 L nasal cannula/prednisone dependent
#Former smoker 50-year 1 to 2 pack a day stopped 2022
Initially was placed on BiPAP on admission, did not improve so was intubated 03/06. S/p extubation 03/08. Patient without any respiratory distress. Tolerating nasal cannula and oxygenating okay on 3 L which is her baseline.
COVID/influenza negative
Legionella and strep negative
Clinically improved.
With isolation of Pseudomonas aeruginosa antibiotic switched to cefepime. Completed course.
Continue current low dose of IV steroids
#Hx nasal MRSA 09/12/2024
#Chronic Sinus tachycardia
- Was put on trial of Cardizem for heart rate control. With n.p.o. status will try IV Lopressor as needed for heart rate control. Patient now symptomatic with shortness of breath and having prior bronchospasm though she is not requiring higher
FiO2. She is on 2 L. I suspect may be beta-sergo induced. Stop beta-blockers. With no enteral access will start on IV Cardizem for heart rate control.
#Chronic pain due to large ventral hernia on chronic oral opiates
- Patient follows at [facility]
- Patient takes hydrocodone 1 tab twice daily as needed severe pain will hold for now and resume as needed
- Tylenol as needed mild pain
#Hypomagnesemia-replete IV
#History of DM2 used to be on meds states was off due to weight loss
-Accu-Cheks with SSI, HgbA1c 6.5
#Primary hypertension
Continue with nifedipine once able to take p.o.
Hypothyroidism hx
-Low TSH, normal free T4
#Hyperlipidemia
-Restart home regimen once able to take p.o.
Hypokalemia/hypomagnesemia-replete as needed
#Nonobstructive CAD
2D echo 09/15/2024: EF 55-60%, normal LVS LVSF, no wall abnormality, aortic sclerosis without stenosis, mild/moderate TR normal PASP
Follows with [facility] cardiology
#Upper GI bleed January 2023/gastric ulcers
#Severe esophagitis
#Severe anxiety
Restart home regimen once able to take p.o.
`
#History of breast cancer status post left lumpectomy surgery and chemotherapy
DVT prophylaxis
Subcu Lovenox
Full code
.
Anticipated Discharge: > 48 hours
Subjective/Interval History
-
Date of Service: March 18, 2025
continues to passing flatulence
no bm yet
cont to wear abd binder
Objective Data
-
Labs:
Laboratory Results
03/18/25
04:18
WBC 10.9 H
Hgb 9.8 L
Hct 31.2 L
Plt Count 317
Sodium 139
Potassium 3.3 L
Chloride 95 L
Carbon Dioxide 38 H
BUN 14
Creatinine 0.4 L
Glucose 130 H
Calcium 9.3
Vital Signs:
Vital Signs
Temp Pulse Resp BP Pulse Ox
97.5 F 116 14 149/88 100
03/18/25 11:13 03/18/25 12:00 03/18/25 12:00 03/18/25 10:40 03/18/25 12:15
I&O
03/17/25 03/18/25 03/19/25
06:59 06:59 06:59
Intake Total 1850 / 1850 1970 / 1970 60 / 60
Output Total 1900 / 1900 1550 / 1550 500 / 500
Balance -50 / -50 420 / 420 -440 / -440
Physical Exam
-
General: No Apparent Distress, Appears Chronically Ill and Cachectic
HEENT: Moist Mucous Membranes and Oxygen
Respiratory: Wheezes, Non Labored Respirations and Decreased Breath Sounds; Negative Crackles or Accessory Resp Muscle Use
Cardiac: Regular Rhythm, S1/S2 and Tachycardic
GI: Soft, Normal Bowel Sounds and Other (abdominal ventral Hernia without tenderness. NGT w/output noted )
Neuro: Awake and AO x 3
Psych: Calm
[2025-03-18] MEDS: KCL 1020 MEQ IV (14:16)
--- NOTE | 2025-03-18 15:05 | VATNOTE ---
Pt with discomfort and swelling to L arm IV site, pt c/o burning with saline flush; IV discontinued and new line established per PCN request (see charting). Heat applied by PCN to old IV site.
--- NOTE | 2025-03-18 16:00 | PTCARENOTE ---
Patient tolerated milk of molasses enema. Patient passed some gas and some very small kirby of stool. NG tube in left nare to intermittent suction . Irrigating as per MD order. Large amounts of brown drainage. ST on monitor. Cardizem drip
infusing at 2.5 mg/hr. Patient alert and oriented. Very anxious at times. Can make her needs known. Medicating with pain medication and ativan as ordered,
[2025-03-18] MEDS: LOVENOX 30 MG SC (18:14)
[2025-03-18 18:22] LABS: Glucose - Point of Care 93 mg/dl (70-99)
--- NOTE | 2025-03-18 19:00 | PTCARENOTE ---
Patient complaining of nausea and chest pressure. Patient states that NG tube is bothering her throat and chest. Medicated patient with IV zofran and ativan. BP's on left calf elevated 170/70, HR 110'S. Irrigated NG tube, checked for placement.
Patient still not feeling good. ECG obtained. Dr. Dao notified and orders obtained. Report given to Stacia gates RN.
[2025-03-18] MEDS: NITROSTAT (SUBLINGUAL) 0.4 MG SL (19:55)
[2025-03-18 20:51] LABS: Troponin I 0.013 ng/ml
[2025-03-18 23:42] LABS: Glucose - Point of Care 94 mg/dl (70-99)
[2025-03-19] VITALS (17 sets, daily range): BP systolic 126–215; BP diastolic 64–115; BMI 16.8
[2025-03-19] MEDS: STERILE WATER FOR INJECTION IV ×3 (02:41→17:40)
[2025-03-19] MEDS: KCL 1020 MEQ IV ×2 (02:48→13:59)
[2025-03-19] MEDS: ATIVAN 0.25 MG IV ×4 (03:44→19:12)
[2025-03-19 03:48] LABS: % Basophils 0.1 % (0-2); % Immature Granulocytes 0.4 % (0-0.5); % Lymphocytes 19.7 % (20.5-51.1); % Neutrophils 72.8 % (42.2-75.2); Absolute Monocytes 0.7 10^3/uL (0.1-0.6); Absolute Neutrophils 7.4 10^3/uL (1.4-6.5); Hematocrit 31.2 % (37.0-47.0); Hemoglobin 9.6 g/dL (12.0-16.0); Mean Corp Hgb Conc. 30.8 g/dL (33.0-37.0); Mean Corpuscular Hgb 28.9 pg (27.0-31.0); Mean Platelet Volume 9.4 fL (7.4-10.4); Nucleated Red Blood Cells % 0 %; Platelet Count 293 10^3/uL (130-400); Red Blood Cell Count 3.32 10^6/uL (4.20-5.40); Red Cell Dist. Width 13.2 % (11.5-14.5); White Blood Cell Count 10.1 10^3/uL (4.8-10.8)
[2025-03-19 04:11] LABS: Blood Urea Nitrogen 10 mg/dl (7-17); Calcium 9.2 mg/dl (8.4-10.2); Chloride 96 mmol/L (98-107); Estimated Creatinine Clearance 57 ml/min; Glucose 95 mg/dl (70-99); Potassium 4.2 mmol/L (3.5-5.1); Sodium 140 mmol/L (135-145); eGFR > 60.00
[2025-03-19 04:14] LABS: Troponin I 0.013 ng/ml
[2025-03-19 04:21] LABS: Carbon Dioxide 41 mmol/L (22-30)
[2025-03-19] MEDS: CARDIZEM 125 IV ×2 (05:57→19:08)
[2025-03-19] MEDS: MORPHINE SULFATE 2 MG IV ×4 (06:01→23:10)
[2025-03-19] MEDS: NOVOLOG FLEXPEN-LOW RESISTANCE SC ×2 (06:09→18:07)
--- NOTE | 2025-03-19 06:13 | W.PN.UPDATE ---
Update Note
Progress Note Update
QTC increased to 514 this morning- hold placed on Zofran and Compazine.
[2025-03-19 06:18] LABS: Glucose - Point of Care 81 mg/dl (70-99)
--- NOTE | 2025-03-19 06:24 | PTCARENOTE ---
Caring for pt overnight.
Pt c/p CP in beginning of shift. BP elevated 170systolic. HR 120-130s. Chest pressure 8/10. EKG done. Sent to hospitalist. Orders for nitro SL, trend trops. Trops negative so far. nitro effective. No ongoing CP.
aaox3 but very drowsy throughout shift, asking for ativan & morphine throughout shift though sleeping whenever staff enters room.
NGT in place, 600cc brown output overnight.
NSR/ST on monitor. A couple times HR spiked to 160/170's for a couple seconds and then remains 80-110's all shift. Cards gtt running at 2.5. IVF.
EKG in beginning of shift QTC >480. overnight MOLECULAR BIOLOGIST aware, since pt still c/o nausea and has zofran & compazine prn. For now ok, order for ekg in am. EKG in am showed QTC >500. Ground Support Equipment Assembler aware. Zofran & compazine on hold. PT sleeping in bed. Remained bedrest.
No other issues.
--- NOTE | 2025-03-19 06:37 | PTCARENOTE ---
No bm overnight.
[2025-03-19] MEDS: FLOVENT 110 MCG INHALER 2 PUFF INH ×2 (07:41→20:11)
[2025-03-19] MEDS: NSS (PRESERVATIVE FREE) 10 ML IV ×2 (08:19→19:14)
[2025-03-19] MEDS: DECADRON 2 MG IV ×2 (08:19→19:15)
[2025-03-19] MEDS: MIRALAX 17 GRAMS TUBE (08:19)
[2025-03-19] MEDS: PROTONIX IV 40 MG IV ×2 (08:19→19:14)
--- NOTE | 2025-03-19 09:04 | VATNOTE ---
Vat rounds: Right arm phlebitis has resolved. No c/o pain at this time. Will continue to monitor.
[2025-03-19 09:10] LABS: Troponin I 0.014 ng/ml
--- NOTE | 2025-03-19 10:39 | PTCARENOTE ---
pts heart rate elevated 110s to 130 this am. hospitalist made aware. cardizem order adjusted. currently at 5 mg/hr with heart rate 120. will titrate per protocol.abd x ray done, ng to low intermittent suction draining brown fluid. pt dyspneic on
exertion. sats 98 to 99 on 3 liters.
[2025-03-19 12:07] LABS: Glucose - Point of Care 134 mg/dl (70-99)
--- NOTE | 2025-03-19 12:50 | W.PN.HOSP.TC ---
Addendum entered and electronically signed by Tristian Cazares MD 03/19/25 15:10:
General: Appears Chronically Ill and Cachectic
HEENT: Moist Mucous Membranes and Oxygen NC
Respiratory: Wheezes, Non Labored Respirations and Decreased Breath Sounds; Negative Crackles or Accessory Resp Muscle Use
Cardiac: Regular Rhythm, S1/S2 and Tachycardic
GI: Soft, Normal Bowel Sounds and Other (abdominal ventral Hernia without tenderness. NGT w/biliary output noted )
Neuro: Awake and AO x 3
Psych: Calm
Original Note:
Today's Communication/Plan
-
transfer to [facility]
IVF
IV cardizem
Assessment / Plan
Assessment / Plan
# Nausea vomiting with abdominal discomfort 2/2 bowel obstruction secondary to ventral hernia
#Hx of gastroparesis, hiatal hernia
Patient stated she followed up with surgeon at [facility] and told was not a surgical candidate due to severe COPD
She has intermittent nausea due to that and takes antiemetics at home.
S/P NG tube insertion due to worsening GI symptoms.
CT shows bowel containing ventral hernia but no evidence of incarceration or strangulation. There was severe distention of the stomach of unclear etiology. There is large amount of residual contrast from yesterday's barium study. Moderate hiatus
hernia noted.
No response to aggressive bowel regimen
NG tube remains with output
s/p reduction of hernia by surgery on 03/17 and again on 03/19 - Passed flatulence. Miralax via NGT. Abdominal binder on at all times.
Daily enema for now
LR w/KCL
Abdominal x-ray with persistent contrast in colon
Will need to start TPN if transfer delalyed
d/w with General surgery and recommending transfer to higher level of care for surgery. Transfer to [facility]. Accepted.
#Sepsis secondary to CARMELO Pseudomonas pneumonia
#Pseudomonas aeruginosa in the sputum
#Acute hypoxic respiratory failure 2/2 pneumonia/COPD exacerbation
#Acute on chronic hypercarbia
#Acute on chronic COPD 3 L nasal cannula/prednisone dependent
#Former smoker 50-year 1 to 2 pack a day stopped 2022
Initially was placed on BiPAP on admission, did not improve so was intubated 03/06. S/p extubation 03/08. Tolerating nasal cannula and oxygenating okay on 3 L which is her baseline.
COVID/influenza negative
Legionella and strep negative
Clinically improved.
With isolation of Pseudomonas aeruginosa antibiotic switched to cefepime. Completed course.
Continue current low dose of IV steroids
# Atypical chest pain
Resolved
EKG noted. Prolonged QTc. Holding QTc prolonging meds for now.
#Hx nasal MRSA 09/12/2024
#Chronic Sinus tachycardia
- With no enteral access will start on IV Cardizem for heart rate control.
-seems bronchospasm earlier due to beta-sergo
#Chronic pain due to large ventral hernia on chronic oral opiates
- Patient follows at [facility]
- Patient takes hydrocodone 1 tab twice daily as needed severe pain will hold for now and resume as needed
- Tylenol as needed mild pain
#Hypomagnesemia-replete IV
#History of DM2 used to be on meds states was off due to weight loss
-Accu-Cheks with SSI, HgbA1c 6.5
#Primary hypertension
Continue with nifedipine once able to take p.o.
Hypothyroidism hx
-Low TSH, normal free T4
#Hyperlipidemia
-Restart home regimen once able to take p.o.
Hypokalemia/hypomagnesemia-replete as needed
#Nonobstructive CAD
2D echo 09/15/2024: EF 55-60%, normal LVS LVSF, no wall abnormality, aortic sclerosis without stenosis, mild/moderate TR normal PASP
Follows with [facility]ology
#Upper GI bleed January 2023/gastric ulcers
#Severe esophagitis
#Severe anxiety
Restart home regimen once able to take p.o.
`
#History of breast cancer status post left lumpectomy surgery and chemotherapy
DVT prophylaxis
Subcu Lovenox
Full code
discuss with generaly surgery
discuss with patient daughter at bedside in details
Talk to surgeon at [facility] and patient has been accepted to [facility] ICU bed by Dr. Lee with high priority.
More than 30 minutes spent in discharge including
Final examination of the patient
Summarizing hospital stay
Instructions for continuing care to all relevant caregivers
Preparation of discharge records, prescriptions, and referral forms
Total time spent (in minutes):
.
Anticipated Discharge: Today
Subjective/Interval History
-
Date of Service: March 19, 2025
Remains tachycardic with elevated blood pressure
States of some abdominal discomfort
Remains with NG tube with significant output
Objective Data
-
Labs:
Laboratory Results
03/19/25
03:36
WBC 10.1
Hgb 9.6 L
Hct 31.2 L
Plt Count 293
Sodium 140
Potassium 4.2 D
Chloride 96 L
Carbon Dioxide 41 H
BUN 10
Creatinine 0.4 L
Glucose 95
Calcium 9.2
Vital Signs:
Vital Signs
Temp Pulse Resp BP Pulse Ox
97.8 F 118 37 183/91 99
03/19/25 11:31 03/19/25 10:02 03/19/25 10:02 03/19/25 10:02 03/19/25 10:05
I&O
03/18/25 03/19/25 03/20/25
06:59 06:59 06:59
Intake Total 1970 / 1970 2340 / 2340 60 / 60
Output Total 1550 / 1550 1900 / 1900
Balance 420 / 420 440 / 440 60 / 60
Data Reviewed
-
Total Time Spent with Patient (in minutes): 86
--- NOTE | 2025-03-19 12:56 | W.PN.SURGUPD ---
Surgical Update
Surgical Update
Patient examined and hernia again found to be out with binder in poor position. Easily reduced at bedside. This is a persistent issue for the patient, which is unlikely to be managed non-operatively in a durable manner. Her hernia can technically
be repaired here at (either open retrorectus versus robotic IPOM. She will need general anesthesia and will likely need post-op intubation and paralyzation. Given her increased risks for pulmonary complications, she has been told that she is
best managed at a tertiary care center. Her Mold Hoister is at [facility]. She has been previously evaluated by a [facility] surgeon. Given our inability to correct this non-operatively over the past week plus, recommend transfer to [facility]. Given
her lack of enteral nutrition, recommend TPN.
[2025-03-19] MEDS: NOVOLOG FLEXPEN-LOW RESISTANCE 1 UNITS SC (12:59)
--- NOTE | 2025-03-19 14:06 | CM ---
Addendum entered by Agnes Dong 03/19/25 14:49:
Patient is being transferred to [facility]. Requiring a higher level of care.
Original Note:
IV steroids. Ventral hernia reduced at bedside x2, abdominal binder,NGT. Surgery recommending transfer to [place] for Management as patient's control integration engineer is at [place]. She was advised in the past that surgery was risky due to COPD. TPN also
recommended. Will continue to follow for discharge POC.
--- NOTE | 2025-03-19 14:15 | PTCARENOTE ---
pt bp up to 160s 170s systolic at times. bp cuff is on calf d/t bilateral upper limb restrictions. hospitalist made aware. will observe for now. no new orders at this time.
[2025-03-19] MEDS: LOVENOX 30 MG SC (17:13)
[2025-03-19 18:12] LABS: Glucose - Point of Care 119 mg/dl (70-99)
--- NOTE | 2025-03-19 18:35 | PTCARENOTE ---
See nursing shift assessment. pt given milk and molasses enema with no results. abd hernia visibly bulging. seen by surgery and is awaiting transfer to [place], cardizem drip at 15 mg/hr per protocol.
[2025-03-19] MEDS: CHLORASEPTIC/SORE THROAT SPRAY 1 SPRAY PO (19:19)
[2025-03-20] VITALS (7 sets, daily range): BP systolic 115–158; BP diastolic 58–101; BMI 16.0
[2025-03-20 00:08] LABS: Glucose - Point of Care 169 mg/dl (70-99)
[2025-03-20] MEDS: ATIVAN 0.25 MG IV ×3 (00:12→08:49)
[2025-03-20] MEDS: NOVOLOG FLEXPEN-LOW RESISTANCE 1 UNITS SC (00:12)
[2025-03-20] MEDS: KCL 1020 MEQ IV (02:03)
[2025-03-20] MEDS: CARDIZEM 125 IV (02:04)
[2025-03-20] MEDS: STERILE WATER FOR INJECTION IV ×2 (02:54→08:23)
[2025-03-20 04:40] LABS: % Basophils 0.1 % (0-2); % Immature Granulocytes 0.5 % (0-0.5); % Lymphocytes 11.8 % (20.5-51.1); % Neutrophils 80.6 % (42.2-75.2); Absolute Immature Granulocytes 0.1 10^3/uL (0-0.05); Absolute Lymphocytes 1.7 10^3/uL (1.2-3.4); Absolute Neutrophils 11.8 10^3/uL (1.4-6.5); Hemoglobin 10.5 g/dL (12.0-16.0); Mean Corp Hgb Conc. 30.9 g/dL (33.0-37.0); Mean Corpuscular Hgb 28.8 pg (27.0-31.0); Mean Corpuscular Volume 93.4 fL (81.0-99.0); Mean Platelet Volume 9.4 fL (7.4-10.4); Nucleated Red Blood Cells % 0 %; Platelet Count 310 10^3/uL (130-400); Red Blood Cell Count 3.64 10^6/uL (4.20-5.40); Red Cell Dist. Width 13.1 % (11.5-14.5); White Blood Cell Count 14.7 10^3/uL (4.8-10.8)
[2025-03-20 05:01] LABS: Blood Urea Nitrogen 5 mg/dl (7-17); Calcium 9.7 mg/dl (8.4-10.2); Chloride 91 mmol/L (98-107); Estimated Creatinine Clearance 55 ml/min; Glucose 154 mg/dl (70-99); Potassium 4.9 mmol/L (3.5-5.1); Sodium 138 mmol/L (135-145); eGFR > 60.00
[2025-03-20 05:12] LABS: Carbon Dioxide 42 mmol/L (22-30)
--- NOTE | 2025-03-20 05:47 | PTCARENOTE ---
Pt found to be eating chocolate yoko's cups last night around 2300. PT is aware of NPO order and her care/situation. Education was provided.
Increased abdominal pain overnight. prn morphine & ativan given. VSS. Cardizem gtt continues at 15ml/hr. HR 90-120bpm. NGT continues to drain brown. IVF running. afebrile. No other issues. Will monitor.
[2025-03-20] MEDS: MORPHINE SULFATE 2 MG IV ×2 (06:02→12:54)
[2025-03-20] MEDS: NOVOLOG FLEXPEN-LOW RESISTANCE SC ×2 (06:04→13:04)
[2025-03-20 06:16] LABS: Glucose - Point of Care 133 mg/dl (70-99)
[2025-03-20] MEDS: FLOVENT 110 MCG INHALER 2 PUFF INH (07:37)
[2025-03-20] MEDS: PROTONIX IV 40 MG IV (08:22)
[2025-03-20] MEDS: MIRALAX 17 GRAMS TUBE (08:22)
[2025-03-20] MEDS: NSS (PRESERVATIVE FREE) 10 ML IV (08:22)
[2025-03-20] MEDS: LR 1000 IV (08:22)
[2025-03-20] MEDS: DECADRON 2 MG IV (08:23)
--- NOTE | 2025-03-20 12:16 | W.PN.HOSP.TC ---
Today's Communication/Plan
-
Continue with IV Cardizem
Continue with IV steroid
Continue with IV fluids
Transfer to tertiary care center
Assessment / Plan
Assessment / Plan
# Nausea vomiting with abdominal discomfort 2/2 bowel obstruction secondary to ventral hernia
#Hx of gastroparesis, hiatal hernia
Patient stated she followed up with skull chopper and surgeon [facility] and told was not a surgical candidate due to severe COPD. Patient is unable to recall name of the physician's.
She has intermittent nausea due to that and takes antiemetics at home.
S/P NG tube insertion due to worsening GI symptoms.
CT shows bowel containing ventral hernia but no evidence of incarceration or strangulation. There was severe distention of the stomach of unclear etiology. There is large amount of residual contrast from yesterday's barium study. Moderate hiatus
hernia noted.
No response to aggressive bowel regimen
NG tube remains with output on daily basis
s/p reduction of hernia by surgery on 03/17 and again on 03/19 - Passed flatulence. Miralax via NGT. Abdominal binder on at all times. Remains without bowel movement.
Not sure if enema seems to help. Plan is to transfer and hold for today. further management per surgery
Change fluids to LR only
Abdominal x-ray with persistent contrast in colon
Plan will be to start TPN if transfer is delayed. Patient has a bed at [facility].
d/w with General surgery and recommending transfer to higher level of care for surgery. Transfer to [facility]. Accepted on 03/19/25.
Please see his surgery correspondence for further details
#Sepsis secondary to CARMELO Pseudomonas pneumonia
#Pseudomonas aeruginosa in the sputum
#Acute hypoxic respiratory failure 2/2 pneumonia/COPD exacerbation
#Acute on chronic hypercarbia
#Acute on chronic COPD 3 L nasal cannula/prednisone dependent
#Former smoker 50-year 1 to 2 pack a day stopped 2022
Initially was placed on BiPAP on admission, did not improve so was intubated 03/06. S/p extubation 03/08. Tolerating nasal cannula and oxygenating okay on 3 L which is her baseline.
COVID/influenza negative
Legionella and strep negative
Clinically improved.
With isolation of Pseudomonas aeruginosa antibiotic switched to cefepime. Completed course.
Continue current low dose of IV steroids
Bump in WBC likely secondary to steroids
# Atypical chest pain
Resolved
Patient QTc downtrended.
Troponin were checked x 3 and negative
Continue to monitor closely.
#Hx nasal MRSA 09/12/2024
#Chronic Sinus tachycardia
- With no enteral access will start on IV Cardizem for heart rate control.
-seems bronchospasm earlier due to beta-sergo
#Chronic pain due to large ventral hernia on chronic oral opiates
- Patient follows at [facility]
- Patient takes hydrocodone 1 tab twice daily as needed severe pain will hold for now and resume as needed
- Tylenol as needed mild pain
#Hypomagnesemia-replete IV
#History of DM2 used to be on meds states was off due to weight loss
-Accu-Cheks with SSI, HgbA1c 6.5
#Primary hypertension
Continue with nifedipine once able to take p.o.
Hypothyroidism hx
-Low TSH, normal free T4
#Hyperlipidemia
-Restart home regimen once able to take p.o.
Hypokalemia/hypomagnesemia-replete as needed
#Nonobstructive CAD
2D echo 09/15/2024: EF 55-60%, normal LVS LVSF, no wall abnormality, aortic sclerosis without stenosis, mild/moderate TR normal PASP
Follows with [facility]
#Upper GI bleed January 2023/gastric ulcers
#Severe esophagitis
#Severe anxiety
Restart home regimen once able to take p.o.
`
#History of breast cancer status post left lumpectomy surgery and chemotherapy
DVT prophylaxis
Subcu Lovenox
Full code
discuss with patient daughter at bedside in details on 03/19/2025
Talk to surgeon at [facility] and patient has been accepted to Surgical ICU bed by Dr. Lee with high priority.
More than 30 minutes spent in discharge including
Final examination of the patient
Summarizing hospital stay
Instructions for continuing care to all relevant caregivers
Preparation of discharge records, prescriptions, and referral forms
Total time spent (in minutes): 55
.
Anticipated Discharge: Today
Subjective/Interval History
-
Date of Service: March 20, 2025
Overnight events noted
Patient was caught eating chocolate
This morning patient states of abdominal pain
Remains with significant NG tube output
Objective Data
-
Labs:
Laboratory Results
03/20/25
04:20
WBC 14.7 H
Hgb 10.5 L
Hct 34.0 L
Plt Count 310
Sodium 138
Potassium 4.9
Chloride 91 L
Carbon Dioxide 42 H
BUN 5 L
Creatinine 0.4 L
Glucose 154 H
Calcium 9.7
Vital Signs:
Vital Signs
Temp Pulse Resp BP Pulse Ox
97.9 F 96 43 125/95 97
03/20/25 07:55 03/20/25 10:00 03/20/25 10:00 03/20/25 10:00 03/20/25 12:01
I&O
03/19/25 03/20/25 03/21/25
06:59 06:59 06:59
Intake Total 2340 / 2340 960 / 960 605 / 605
Output Total 1900 / 1900 800 / 800
Balance 440 / 440 160 / 160 605 / 605
Physical Exam
-
General: No Apparent Distress, Appears Chronically Ill and Cachectic
HEENT: Moist Mucous Membranes and Oxygen
Respiratory: Non Labored Respirations and Decreased Breath Sounds; Negative Crackles or Accessory Resp Muscle Use
Cardiac: Regular Rhythm, S1/S2 and Tachycardic
GI: Soft, Normal Bowel Sounds, Tender (TTP over ventral hernia ) and Other (NGT w/output noted )
Neuro: Awake, Alert, Oriented, AO x 3 and No Motor Deficits
Psych: Calm
--- NOTE | 2025-03-20 12:30 | PTCARENOTE ---
pt for transfre to [facility], 1 pm picker machine operator. report given to Gladis.
--- NOTE | 2025-03-20 12:30 | CM ---
Patient with Dx bowel obstruction, Sepsis secondary to CARMELO Pseudomonas pneumonia. O2 2L. NPO. Receiving IV Decadron, Cardizem gtt.
Per hospitalist notes: General surgery recommending transfer to higher level of care for surgery. Transfer to [facility].
Met with patient and spoke with daughter Sofiya by phone; both are aware of transfer today to [facility] - provided update to daughter that patient will be going to [facility] [place] at [address] in [facility] by ambulance.
Patient and daughter requested note from MD confirming patient was hospitalized as patient is in housing that is questioning whether she abandoned her house. Message to Dr Cazares who provided script stating hospitalization dates- script provided to
patient.
Plan transfer to [facility] today by [facility] ambulance.
[2025-03-20 13:14] LABS: Glucose - Point of Care 139 mg/dl (70-99)
--- NOTE | 2025-03-20 14:05 | PTCARENOTE ---
pt transferred to [place] via ambulance stretcher at 1345. report given to ambulance crew.
--- NOTE | 2025-03-20 14:18 | W.DCSUMMARY ---
Discharge Summary
Discharge Data
Date of Admission: 03/06/25
Date of Discharge: 03/20/25
-
Pending Results: No
Hospital Course
70-year-old female past medical history of chronic hypoxic respiratory failure, COPD, history of tobacco abuse, asthma, primary hypertension, hyperlipidemia, history of breast cancer status postlumpectomy and chemotherapy, large ventral hernia with
chronic abdominal pain, opioid usage, nonobstructive coronary artery disease, history of gastric ulcer, severe esophagitis, severe anxiety, chronic sinus tachycardia who is presenting with shortness of breath for the past 2 to 3 days. Patient was
found to be severely hypoxic on admission. Patient x-ray with focal infiltrates concern for pneumonia. White count was severely elevated. Patient was found to have sepsis on admission. Patient mentation continued to decline. Patient was eval by
postage machine operator, general surgery and gastroenterology. Patient with worsening of respiratory status and was intubated on 03/06/2025. Patient was started on IV steroids. Patient was started on IV broad-spectrum antibiotic with vancomycin, ceftriaxone
and doxycycline which was later transitioned to cefepime as sputum culture with Pseudomonas. Patient was able to be extubated on 03/08/2025. Most extubation patient oxygen requirement was slowly weaned into her baseline. Patient was continued on
bronchodilators and IV steroids and IV antibiotics. Patient with pulmonary cachexia. Patient furthermore started complaining of abdominal pain and patient underwent evaluation by gastroenterology and surgery. Patient underwent CT abdomen pelvis
which which shows bowel containing ventral hernia. No evidence of incarceration or strangulation. Severely distended stomach. Large amount of residual contrast from the barium swallow was noted. NG tube was placed. Patient remained with
continuous significant biliary output. Subsequent abdominal x-ray showed persistent contrast in the colon which has not passed. At this point I was concerned that patient with bowel obstruction and a ventral hernia. General surgery was able to
reduce the hernia however it continued to return. Patient was started on MiraLAX for NG tube and daily enemas. Patient did not have any response to aggressive bowel regimen and enemas. Patient continued to remain n.p.o. with IV fluids. Patient
was severely tachycardic initially received IV beta-sergo which possibly caused some bronchospasm. Patient was transitioned to Cardizem infusion for rate control and for blood pressure control. Patient with persistent bowel obstruction and
discussion with general surgery recommending transfer to higher level of care due to patient advanced COPD and advanced care required postop. Plan was also to start patient on TPN if transfer were to delay as patient continued to remain n.p.o.
This was discussed with patient and patient daughter Sofiya were both agreed for patient to be transferred to higher level of care. Patient will be transferred to [facility] under Dr. Cat in surgical ICU for higher level of care and possible ventral
hernia repair surgery.
Discharge Plan
-
Patient Disposition: Acute Care Hospital
Condition: Serious
Discharge Orders:
Discharge Patient (As Directed); Ordered 03/19/25
Ordered By: Tristian Cazares
Discharge Date and Time
Discharge Date/Time: 03/20/25 13:44
Print Language: ANGUILLAN
== END 2025-03-20 13:44 | disposition short-term general hospital (02) | DRG 871 ==
LOC: IMU 13:35
PROVIDERS: Clinical Nurse Specialist Family Health; Emergency Medicine; Internal Medicine; Internal Medicine Critical Care Medicine; Nurse Practitioner Adult Health; Nurse Practitioner Family; Nurse Practitioner Primary Care; ADMITTING PHYSICIAN Internal Medicine; ATTENDING PHYSICIAN Hospitalist; CONSULT PHYSICIAN Internal Medicine; CONSULT PHYSICIAN Specialist; CONSULT PHYSICIAN Surgery
PROC: 0BH18EZ Insertion of Endotracheal Airway into Trachea, Via Natural or Artificial Opening Endoscopic (ICD-10-PCS; 2025-03-06)
PROC: 5A1945Z Respiratory Ventilation, 24-96 Consecutive Hours (ICD-10-PCS; 2025-03-06)
PROC: 5A09357 Assistance with Respiratory Ventilation, Less than 24 Consecutive Hours, Continuous Positive Airway Pressure (ICD-10-PCS; 2025-03-06)
PROC: 03HY32Z Insertion of Monitoring Device into Upper Artery, Percutaneous Approach (ICD-10-PCS; 2025-03-07)
DX: A41.52 Sepsis due to Pseudomonas (principal); J15.1 Pneumonia due to Pseudomonas; J96.21 Acute and chronic respiratory failure with hypoxia; J96.22 Acute and chronic respiratory failure with hypercapnia; J44.0 Chronic obstructive pulmonary disease with (acute) lower respiratory infection; J44.1 Chronic obstructive pulmonary disease with (acute) exacerbation; F11.20 Opioid dependence, uncomplicated; R64 Cachexia; Z68.1 Body mass index [BMI] 19.9 or less, adult; K43.6 Other and unspecified ventral hernia with obstruction, without gangrene; E87.3 Alkalosis; Z66 Do not resuscitate; K44.9 Diaphragmatic hernia without obstruction or gangrene; G89.29 Other chronic pain; I10 Essential (primary) hypertension; E03.9 Hypothyroidism, unspecified; E78.00 Pure hypercholesterolemia, unspecified; I25.10 Atherosclerotic heart disease of native coronary artery without angina pectoris; F41.9 Anxiety disorder, unspecified; F32.A Depression, unspecified; K31.84 Gastroparesis; E11.43 Type 2 diabetes mellitus with diabetic autonomic (poly)neuropathy; I27.20 Pulmonary hypertension, unspecified; G47.00 Insomnia, unspecified; K21.00 Gastro-esophageal reflux disease with esophagitis, without bleeding; E83.42 Hypomagnesemia; E87.6 Hypokalemia; Z11.52 Encounter for screening for COVID-19; Z79.52 Long term (current) use of systemic steroids; Z79.899 Other long term (current) drug therapy; Z85.3 Personal history of malignant neoplasm of breast; Z87.11 Personal history of peptic ulcer disease; Z87.891 Personal history of nicotine dependence; Z92.21 Personal history of antineoplastic chemotherapy; Z99.81 Dependence on supplemental oxygen; D64.9 Anemia, unspecified
CPT/HCPCS: 36600; 71045; 74018; 74019; 74176; 74230; 80048; 80053; 80202; 82805; 82962; 83036; 83735; 83880; 84100; 84439; 84443; 84478; 84484; 85014; 85018; 85025; 85027; 85610; 85730; 87040; 87070; 87077; 87147; 87186; 87205; 87449; 87502; 87811; 87899; 92610; 92611; 93005; 94002; 94003; 94640; 94644; 94660; 96361; 96365; 96375; 97116; 97163; 97167; 97530; 97535; 99291

== ENCOUNTER → 2025-03-31 12:54 | Outpatient (REF) | payer MEDICARE, SELFPAY ==
[2025-03-31 13:25] LABS: % Basophils 0.3 % (0-2); % Eosinophils 1.4 % (0-6); % Immature Granulocytes 0.7 % (0-0.5); % Lymphocytes 25.9 % (20.5-51.1); % Monocytes 11.9 % (1.7-9.3); % Neutrophils 59.8 % (42.2-75.2); Absolute Eosinophils 0.2 10^3/uL (0-0.7); Absolute Immature Granulocytes 0.1 10^3/uL (0-0.05); Absolute Lymphocytes 3.3 10^3/uL (1.2-3.4); Absolute Monocytes 1.5 10^3/uL (0.1-0.6); Absolute Neutrophils 7.5 10^3/uL (1.4-6.5); Hematocrit 30.6 % (37.0-47.0); Mean Corp Hgb Conc. 29.4 g/dL (33.0-37.0); Mean Corpuscular Hgb 28.9 pg (27.0-31.0); Mean Corpuscular Volume 98.4 fL (81.0-99.0); Mean Platelet Volume 9.8 fL (7.4-10.4); Nucleated Red Blood Cells % 0 %; Platelet Count 403 10^3/uL (130-400); Red Blood Cell Count 3.11 10^6/uL (4.20-5.40); Red Cell Dist. Width 13.9 % (11.5-14.5); White Blood Cell Count 12.6 10^3/uL (4.8-10.8)
[2025-03-31 13:40] LABS: Blood Urea Nitrogen 12 mg/dl (7-17); Calcium 9.4 mg/dl (8.4-10.2); Carbon Dioxide 36 mmol/L (22-30); Chloride 96 mmol/L (98-107); Glucose 121 mg/dl (70-99); Potassium 4.6 mmol/L (3.5-5.1); Sodium 136 mmol/L (135-145); eGFR > 60.00
== END ==
LOC: OLABP 12:54
PROVIDERS: ATTENDING PHYSICIAN Family Medicine
DX: J44.9 Chronic obstructive pulmonary disease, unspecified (principal); E11.9 Type 2 diabetes mellitus without complications; K43.9 Ventral hernia without obstruction or gangrene; J96.10 Chronic respiratory failure, unspecified whether with hypoxia or hypercapnia; E78.5 Hyperlipidemia, unspecified; R00.0 Tachycardia, unspecified; K21.9 Gastro-esophageal reflux disease without esophagitis; I50.9 Heart failure, unspecified
CPT/HCPCS: 36415; 80048; 85025

== ENCOUNTER → 2025-04-06 10:29 | Outpatient (REF) | payer MEDICARE, SELFPAY ==
[2025-04-06 11:31] LABS: % Basophils 0.2 % (0-2); % Eosinophils 1.4 % (0-6); % Immature Granulocytes 0.6 % (0-0.5); % Lymphocytes 11.1 % (20.5-51.1); % Monocytes 8.3 % (1.7-9.3); % Neutrophils 78.4 % (42.2-75.2); Absolute Eosinophils 0.2 10^3/uL (0-0.7); Absolute Immature Granulocytes 0.1 10^3/uL (0-0.05); Absolute Lymphocytes 1.8 10^3/uL (1.2-3.4); Absolute Monocytes 1.4 10^3/uL (0.1-0.6); Absolute Neutrophils 12.8 10^3/uL (1.4-6.5); Hematocrit 30.4 % (37.0-47.0); Mean Corp Hgb Conc. 29.6 g/dL (33.0-37.0); Mean Corpuscular Hgb 28.7 pg (27.0-31.0); Mean Corpuscular Volume 96.8 fL (81.0-99.0); Mean Platelet Volume 9.8 fL (7.4-10.4); Nucleated Red Blood Cells % 0.1 %; Platelet Count 405 10^3/uL (130-400); Red Blood Cell Count 3.14 10^6/uL (4.20-5.40); White Blood Cell Count 16.3 10^3/uL (4.8-10.8)
[2025-04-06 23:13] LABS: Urine Albumin 2+ (Neg - Trace); Urine Bilirubin Negative (Negative); Urine Character Clear (Clear); Urine Color Yellow; Urine Glucose Negative (Negative); Urine Ketone Negative (Negative); Urine Leukocyte Negative (Negative); Urine Nitrite Negative (Negative); Urine Occult Blood Negative (Negative); Urine Specific Gravity 1.015 (<1.030); Urine Urobilinogen Negative (Neg - 1+)
[2025-04-06 23:14] LABS: Urine Red Blood Cell 0-2 /HPF (0-2)
== END ==
LOC: OLABP 10:29
PROVIDERS: ATTENDING PHYSICIAN Family Medicine
DX: J44.9 Chronic obstructive pulmonary disease, unspecified (principal); E11.9 Type 2 diabetes mellitus without complications; I10 Essential (primary) hypertension; E78.5 Hyperlipidemia, unspecified; K21.9 Gastro-esophageal reflux disease without esophagitis; I50.9 Heart failure, unspecified; R82.90 Unspecified abnormal findings in urine
CPT/HCPCS: 36415; 81003; 81015; 85025; 87086

== ENCOUNTER → 2025-04-07 10:02 | Outpatient (REF) | payer OTHER, MEDICARE, SELFPAY ==
[2025-04-07 11:14] LABS: % Basophils 0.4 % (0-2); % Eosinophils 1.8 % (0-6); % Lymphocytes 15.2 % (20.5-51.1); % Monocytes 8.4 % (1.7-9.3); % Neutrophils 73.2 % (42.2-75.2); Absolute Basophils 0.1 10^3/uL (0-0.2); Absolute Eosinophils 0.3 10^3/uL (0-0.7); Absolute Immature Granulocytes 0.2 10^3/uL (0-0.05); Absolute Lymphocytes 2.7 10^3/uL (1.2-3.4); Absolute Monocytes 1.5 10^3/uL (0.1-0.6); Absolute Neutrophils 13.1 10^3/uL (1.4-6.5); Hematocrit 32.7 % (37.0-47.0); Hemoglobin 9.7 g/dL (12.0-16.0); Mean Corp Hgb Conc. 29.7 g/dL (33.0-37.0); Mean Corpuscular Hgb 28.4 pg (27.0-31.0); Mean Corpuscular Volume 95.9 fL (81.0-99.0); Nucleated Red Blood Cells % 0 %; Red Blood Cell Count 3.41 10^6/uL (4.20-5.40); White Blood Cell Count 17.9 10^3/uL (4.8-10.8)
== END ==
LOC: OLABP 10:02
PROVIDERS: ATTENDING PHYSICIAN Family Medicine
DX: J44.9 Chronic obstructive pulmonary disease, unspecified (principal); K43.9 Ventral hernia without obstruction or gangrene; E11.9 Type 2 diabetes mellitus without complications; I10 Essential (primary) hypertension; E78.5 Hyperlipidemia, unspecified; K21.9 Gastro-esophageal reflux disease without esophagitis; I50.9 Heart failure, unspecified
CPT/HCPCS: 36415; 85025

== ENCOUNTER → 2025-04-10 11:49 | Outpatient (REF) | payer OTHER, MEDICARE, SELFPAY ==
[2025-04-10 13:23] LABS: Blood Urea Nitrogen 12 mg/dl (7-17); Calcium 9.7 mg/dl (8.4-10.2); Carbon Dioxide 37 mmol/L (22-30); Chloride 98 mmol/L (98-107); Glucose 109 mg/dl (70-99); Potassium 4.5 mmol/L (3.5-5.1); Sodium 138 mmol/L (135-145); eGFR > 60.00
== END ==
LOC: OLABP 11:49
PROVIDERS: ATTENDING PHYSICIAN Family Medicine
DX: J44.9 Chronic obstructive pulmonary disease, unspecified (principal); K43.9 Ventral hernia without obstruction or gangrene; J96.10 Chronic respiratory failure, unspecified whether with hypoxia or hypercapnia; E11.9 Type 2 diabetes mellitus without complications; I10 Essential (primary) hypertension; E78.5 Hyperlipidemia, unspecified; R00.0 Tachycardia, unspecified; K21.9 Gastro-esophageal reflux disease without esophagitis; I50.9 Heart failure, unspecified
CPT/HCPCS: 36415; 80048

== ENCOUNTER → 2025-04-16 10:47 | Outpatient (REF) | payer MEDICARE, SELFPAY ==
[2025-04-16 11:46] LABS: % Basophils 0.7 % (0-2); % Eosinophils 2.8 % (0-6); % Immature Granulocytes 1.3 % (0-0.5); % Lymphocytes 27.8 % (20.5-51.1); % Monocytes 9.1 % (1.7-9.3); % Neutrophils 58.3 % (42.2-75.2); Absolute Basophils 0.1 10^3/uL (0-0.2); Absolute Eosinophils 0.4 10^3/uL (0-0.7); Absolute Immature Granulocytes 0.2 10^3/uL (0-0.05); Absolute Lymphocytes 3.9 10^3/uL (1.2-3.4); Absolute Monocytes 1.3 10^3/uL (0.1-0.6); Absolute Neutrophils 8.1 10^3/uL (1.4-6.5); Hematocrit 31.2 % (37.0-47.0); Hemoglobin 9.2 g/dL (12.0-16.0); Mean Corp Hgb Conc. 29.5 g/dL (33.0-37.0); Mean Corpuscular Hgb 27.9 pg (27.0-31.0); Mean Corpuscular Volume 94.5 fL (81.0-99.0); Nucleated Red Blood Cells % 0 %; Platelet Count 707 10^3/uL (130-400); Red Cell Dist. Width 14.3 % (11.5-14.5); White Blood Cell Count 13.9 10^3/uL (4.8-10.8)
[2025-04-16 11:54] LABS: Blood Urea Nitrogen 14 mg/dl (7-17); Calcium 9.4 mg/dl (8.4-10.2); Carbon Dioxide 34 mmol/L (22-30); Chloride 101 mmol/L (98-107); Glucose 144 mg/dl (70-99); Potassium 4.1 mmol/L (3.5-5.1); Sodium 139 mmol/L (135-145); eGFR > 60.00
== END ==
LOC: OLABP 10:47
PROVIDERS: ATTENDING PHYSICIAN Family Medicine
DX: I10 Essential (primary) hypertension (principal); E11.9 Type 2 diabetes mellitus without complications; E78.5 Hyperlipidemia, unspecified; R00.0 Tachycardia, unspecified; K21.9 Gastro-esophageal reflux disease without esophagitis; I50.9 Heart failure, unspecified; J44.9 Chronic obstructive pulmonary disease, unspecified; K43.9 Ventral hernia without obstruction or gangrene; J96.10 Chronic respiratory failure, unspecified whether with hypoxia or hypercapnia
CPT/HCPCS: 36415; 80048; 85025

== ENCOUNTER 2025-05-15 17:47 | Emergency (ER) | payer MEDICARE, SELFPAY ==
[2025-05-15 17:54] VITALS: BP 119/78
[2025-05-15 18:22] LABS: Hematocrit 33.9 % (37.0-47.0); Hemoglobin 10.2 g/dL (12.0-16.0); Mean Corp Hgb Conc. 30.1 g/dL (33.0-37.0); Mean Corpuscular Volume 89.0 fL (81.0-99.0); Nucleated Red Blood Cells % 0 %; Platelet Count 359 10^3/uL (130-400); Red Cell Dist. Width 15.1 % (11.5-14.5)
[2025-05-15 18:43] LABS: ALT (SGPT) 17 U/L (0-35); AST (SGOT) 23 U/L (14-36); Albumin 4.3 g/dl (3.5-5.0); Alkaline Phosphatase 57 U/L (38-126); Blood Urea Nitrogen 9 mg/dl (7-17); Calcium 9.4 mg/dl (8.4-10.2); Carbon Dioxide 30 mmol/L (22-30); Chloride 101 mmol/L (98-107); Glucose 106 mg/dl (70-99); Potassium 4.4 mmol/L (3.5-5.1); Sodium 138 mmol/L (135-145); Total Protein 7.0 g/dl (6.3-8.2); eGFR > 60.00
[2025-05-15 18:47] LABS: Troponin I < 0.012 ng/ml
== END 2025-05-15 18:02 | disposition left against medical advice (07) ==
LOC: EMR 17:47
PROVIDERS: Emergency Medicine
DX: R06.02 Shortness of breath (principal); Z53.21 Procedure and treatment not carried out due to patient leaving prior to being seen by health care provider
CPT/HCPCS: 80053; 83880; 84484; 85025; 93005

== ENCOUNTER 2025-09-20 22:22 | Inpatient (IN) | payer MEDICARE, SELFPAY ==
[2025-09-20] VITALS (10 sets, daily range): BP systolic 127–177; BP diastolic 70–104; BMI 15.3; BMI 15.2
[2025-09-20] MEDS: DUONEB 3 ML INH ×2 (15:30→15:31)
[2025-09-20] MEDS: VENTOLIN NEBULES 7.5 MG INH (15:30)
[2025-09-20] MEDS: DECADRON 20 MG IV (15:30)
[2025-09-20 15:47] LABS: Hematocrit 39.6 % (37.0-47.0); Hemoglobin 11.6 g/dL (12.0-16.0); Mean Corp Hgb Conc. 29.3 g/dL (33.0-37.0); Mean Corpuscular Volume 90.6 fL (81.0-99.0); Nucleated Red Blood Cells % 0.2 %; Platelet Count 423 10^3/uL (130-400); Red Cell Dist. Width 16.3 % (11.5-14.5)
[2025-09-20 16:51] LABS: ALT (SGPT) 55 U/L (0-35); AST (SGOT) 96 U/L (14-36); Albumin 3.8 g/dl (3.5-5.0); Alkaline Phosphatase 141 U/L (38-126); Blood Urea Nitrogen 41 mg/dl (7-17); Calcium 9.6 mg/dl (8.4-10.2); Chloride 95 mmol/L (98-107); Estimated Creatinine Clearance 54 ml/min; Glucose 154 mg/dl (70-99); Potassium 4.3 mmol/L (3.5-5.1); Sodium 140 mmol/L (135-145); Total Protein 6.7 g/dl (6.3-8.2); eGFR > 60.00
--- NOTE | 2025-09-20 16:55 | ED.GENMED ---
History of Present Illness
General
Chief Complaint: Breathing Problem
Source: patient
Time Seen by Provider: 09/20/25 15:16
History of Present Illness
History of Present Illness:
Note:
CHIEF COMPLAINT(S)
Shortness of breath
HISTORY OF PRESENT ILLNESS
The patient is a 70-year-old female presenting with a chief complaint of shortness of breath that began on the day of the visit. She describes difficulty breathing and suspects an exacerbation of her chronic obstructive pulmonary disease (COPD). The
patient denies any fevers. She denies coughing up any blood, yellow, or green sputum. The patient has a history of smoking but did not specify when she quit. She reports being on prednisone at home for her COPD, though the exact dosage was not
specified. She is in moderate respiratory distress and has been experiencing a prolonged expiratory phase with poor air movement bilaterally. There is no peripheral edema noted. The patient also has a history of heart problems; however, she denies
any history of heart failure or heart attack.
ADDITIONAL HISTORY OBTAINED FROM SOURCES OTHER THAN THE PATIENT
No external sources of information were utilized during this encounter.
CHRONIC MEDICAL CONDITIONS SIGNIFICANTLY AFFECTING CARE
Chronic obstructive pulmonary disease (COPD)
History of heart problems
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
History of smoking
MEDICATIONS
Prednisone (specific dosage not mentioned)
REVIEW OF SYSTEMS
- Respiratory: Shortness of breath, possible exacerbation of COPD
- Cardiovascular: History of heart problems, regular heart rhythm with tachycardia
PHYSICAL EXAM
General: Alert, in moderate respiratory distress.
Skin: Warm, dry.
Head: Normocephalic, atraumatic.
Neck: Supple, trachea midline.
Eye Ears, Nose, Mouth, and Throat: Oral mucosa moist.
Cardiovascular: Regular heart rhythm, tachycardic, no edema.
Respiratory: Moderate respiratory distress, prolonged expiratory phase, poor air movement bilaterally, no wheezing noted.
Gastrointestinal: Abdomen nondistended.
Back: Normal range of motion, normal alignment.
Musculoskeletal: Normal ROM, normal strength.
Neurological: Alert and oriented to person, place, time, and situation, no focal neurological deficit observed.
Psychiatric: Cooperative, appropriate mood & affect.
PROBLEM LIST
Acute:
- Acute exacerbation of chronic obstructive pulmonary disease (COPD)
- Moderate respiratory distress
Chronic:
- Chronic obstructive pulmonary disease (COPD)
- History of heart problems
PLAN
- Administer Dexamethasone (Decadron) for COPD exacerbation.
- Provide nebulized bronchodilator treatment (Albuterol).
- Conduct basic laboratory tests including BNP (B-type Natriuretic Peptide) and Troponin levels to assess cardiac function.
- Monitor the patient�s respiratory status and provide supportive care as needed.
DIFFERENTIAL DIAGNOSIS
The Differential Diagnosis includes, in no particular order and is not limited to:
1. Exacerbation of chronic obstructive pulmonary disease (COPD)
2. Pneumonia
3. Congestive heart failure
4. Acute coronary syndrome
5. Pulmonary embolism
6. Asthma exacerbation
7. Pulmonary fibrosis
8. Interstitial lung disease
9. Anemia
10. Anxiety-related hyperventilation
Disposition:
SUMMARY OF ENCOUNTER
The patient is a 70-year-old female with a history of advanced chronic obstructive pulmonary disease (COPD) who presented to the emergency department with shortness of breath. On arrival, she was found to be hypoxic and in moderate respiratory
distress. Her condition improved significantly after administration of bronchodilators. Despite the improvement, the patient remained tachycardic; however, this was consistent with her known history of sinus tachycardia from previous admissions. She
received Decadron via IV and a bronchodilator therapy (Duonebs) over an hour. A chest X-ray ruled out any acute infiltrates. Laboratory tests revealed leukocytosis, with a white blood cell count of 19,170/mm�. Chemistry panels were notable for a
normal creatinine level and slight hyperglycemia at 154 mg/dL. Based on the leukocytosis, a decision was made to admit the patient and administer one dose of antibiotics while awaiting culture results to manage potential infection.
DISPOSITION
Admit
ASSESSMENT
The patient is experiencing an acute exacerbation of chronic obstructive pulmonary disease, with associated leukocytosis, and increased respiratory effort with a history of sinus tachycardia.
EMERGENCY TREATMENTS ADMINISTERED
- Dexamethasone (Decadron) administered intravenously for COPD exacerbation.
- Nebulized bronchodilator therapy (Duonebs).
PLAN
- Admit the patient for further monitoring and management.
- Administer a single dose of antibiotics pending culture results to address possible infection contributing to leukocytosis.
- Monitor respiratory status, heart rate, and blood glucose levels during the inpatient stay.
INDEPENDENT REVIEW OF LABS AND INTERPRETATION OF TESTS
- My independent review of the CBC is leukocytosis with a white blood cell count of 19,170/mm�.
- My independent review of chemistries indicates normal creatinine and slight hyperglycemia at 154 mg/dL.
MEDICATION RECONCILIATION
- Administered Decadron (Dexamethasone) IV for COPD exacerbation.
- Provided nebulized bronchodilator treatment (Duonebs).
MEDICAL DECISION MAKING
Number and Complexity of Problems Addressed: Chronic conditions affecting care include chronic obstructive pulmonary disease (COPD) and a history of sinus tachycardia. The differential diagnosis considered acute exacerbation of COPD, pneumonia,
congestive heart failure, acute coronary syndrome, pulmonary embolism, asthma exacerbation, pulmonary fibrosis, interstitial lung disease, anemia, and anxiety-related hyperventilation.
Data:
Category 1
- Clinical information obtained from an independent historian.
- Chest X-ray independently interpreted as showing no acute infiltrates.
Risk:
- Prescription medication management was undertaken with administration of antibiotics and bronchodilators, requiring monitoring for potential infectious etiology.
- Given the complexity and risk of the patients presentation and respiratory status, admission for inpatient care was deemed necessary to ensure optimal management and monitoring.
DIAGNOSIS
- Acute exacerbation of chronic obstructive pulmonary disease (COPD) (ICD-10: J44.1)
- Sinus tachycardia (ICD-10: R00.0)
- Leukocytosis (ICD-10: D72.829)
Past History
Past History
ED Past Medical History: Asthma, Cancer (Remote history of breast cancer), COPD, NIDDM and Other (Chronic abdominal wall hernia, chronic abdominal pain, upper GI bleed January 2023, Chronic cough, Ulcers)
ED Past Surgical History: Cholecystectomy, Gynecological (Hysterectomy) and Other (left Lumpectomy)
Patient has exhibited threatening behavior?: No
PSI?: No
Social History
Tobacco: Former smoker
Alcohol: Occasional
Drug: None
Personal:
Living: with family
Employment: Retired
Family History
Family History: Other and Unable to obtain
Phy Exam
Physical Exam
Physical Exam:
.
Scores
Heart Failure Risk
Heart Failure Risk Score: Not Applicable
Course
Orders/Labs/Results
Orders:
Orders
09/20/25 15:17
CR Chest Portable - 1 View Urgent
Comment:
Reason For Exam: sob
Reason Study Needs to be Portable: Patient Unstable
09/20/25 15:23
Albuterol Sulfate [Ventolin Nebules] 2.5 mg .ROUTE .STK-MED ONE
Albuterol Sulfate [Ventolin Nebules] 7.5 mg INH R NOW STA
Dexamethasone Sod Phosphate [Decadron] 20 mg IV NOW STA
Ipratropium/Albuterol Sulfate [Duoneb] 3 ml INH R NOW STA
Ipratropium/Albuterol Sulfate [Duoneb] 3 ml INH R NOW STA
09/20/25 15:24
Albuterol Sulfate [Ventolin Nebules] 5 mg .ROUTE .STK-MED ONE
09/20/25 15:31
Complete Blood Count/With Diff Urgent
09/20/25 16:29
Comprehensive Metabolic Panel Urgent
NT-proBNP Urgent
Troponin I Urgent
09/20/25 16:53
Cefepime HCl [Maxipime] 2,000 mg IV NOW STA
09/20/25 16:56
Electrocardiogram (*1) Urgent
Reason for Study: Shortness of Breath
EKG- Treatment ONCE
09/20/25 17:00
Lactic Acid Q4H
Comment: CANCEL 2nd LACTIC ACID IF 1st LACTIC ACID IS LESS THAN 2
Blood Culture Q30M
JUANA Source: Blood/Venous
Specimen Description:
09/20/25 17:30
Blood Culture Q30M
JUANA Source: Blood/Venous
Specimen Description:
09/20/25 21:00
Lactic Acid Q4H
Comment: CANCEL 2nd LACTIC ACID IF 1st LACTIC ACID IS LESS THAN 2
Abnormal Lab Results
09/20/25 09/20/25
15:31 16:29
WBC 19.7 H 10^3/uL
(4.8-10.8)
Hgb 11.6 L g/dL
(12.0-16.0)
MCH 26.5 L pg
(27.0-31.0)
MCHC 29.3 L g/dL
(33.0-37.0)
RDW 16.3 H %
(11.5-14.5)
Plt Count 423 H 10^3/uL
(130-400)
Abs Immat Gran (auto) 0.1 H 10^3/uL
(0-0.05)
Absolute Neuts (auto) 16.7 H 10^3/uL
(1.4-6.5)
Absolute Monos (auto) 1.6 H 10^3/uL
(0.1-0.6)
Neutrophils % 84.8 H %
(42.2-75.2)
Lymphocytes % 6.4 L %
(20.5-51.1)
Chloride 95 L mmol/L
(98-107)
BUN 41 H mg/dl
(7-17)
Glucose 154 H mg/dl
(70-99)
AST 96 H U/L
(14-36)
ALT 55 H U/L
(0-35)
Alkaline Phosphatase 141 H U/L
(38-126)
09/20/25 15:31
09/20/25 16:29
Vital Signs
Initial and Last Documented VS:
Initial Vital Signs
Temp Pulse Resp BP Pulse Ox
98.0 F 125 20 177/104 88
09/20/25 15:11 09/20/25 15:11 09/20/25 15:11 09/20/25 15:11 09/20/25 15:11
Last Documented Vital Signs
Temp Pulse Resp BP Pulse Ox
98.0 F 128 31 157/83 94
09/20/25 15:11 09/20/25 16:45 09/20/25 16:45 09/20/25 16:00 09/20/25 16:55
*Pulse Oximetry
SaO2: 94
Nasal Cannula flow liters per minute: 5
Patient hypoxic: yes
*Critical Care Note
Total Time (30-74mins, 75-104mins- exclusive of procedures): 35 minutes
ED Attending Note
-
Portions of this chart may have been created with voice recognition software.� Occasional wrong word or��sound alike� substitutions may have occurred due to the inherent limitations of voice recognition software.
Discharge Plan
Departure
Patient Disposition: Admit
Date of Disposition: 09/20/25
Time of Disposition: 16:57
Admit to: Telemetry
Presentation/result/management discussed w/ accepting MD/DO: Hospitalist
Discharge Problem:
COPD with acute exacerbation, Leukocytosis
Prescriptions:
No Action
ivabradine [Corlanor] 5 mg Tablet
5 mg PO BID
Linzess 145 mcg Capsule
145 mcg PO DAILY
Trintellix 20 mg Tablet
20 mg PO DAILY
fluticasone propion-salmeterol [Advair Diskus] 250-50 mcg/dose blister with device
1 inh INHALATION R BID
ondansetron HCl 8 mg tablet
8 mg PO Q8H
rosuvastatin 5 mg tablet
5 mg PO HS
bupropion HCl 300 mg tablet extended release 24 hr
300 mg PO DAILY
levocetirizine 5 mg tablet
5 mg PO DAILYPRN PRN (Reason: allergies)
dexlansoprazole 60 mg capsule,biphase delayed releas
60 mg PO DAILY
nifedipine 30 mg tablet extended release
30 mg PO DAILY Qty: 30 0RF
sennosides [senna] 8.6 mg Tablet
8.6 mg PO HS PRN (Reason: Constipation)
alprazolam 2 mg tablet
2 mg PO QIDPRN PRN (Reason: anxiety)
therapeutic multivitamin Tablet
1 tab PO DAILY
acetaminophen [Tylenol Extra Strength] 500 mg Tablet
1,000 mg PO Q6HPRN PRN (Reason: mild pain)
montelukast 10 mg Tablet
10 mg PO HS
zolpidem 6.25 mg Tablet,Ext Release Multiphase
6.25 mg PO HSPRN PRN (Reason: sleep)
Spiriva Respimat 2.5 mcg/actuation mist
1 inh INHALATION R DAILY
docusate sodium 100 mg capsule
100 mg PO HS PRN (Reason: Constipation)
levalbuterol tartrate [Xopenex HFA] 45 mcg/actuation HFA aerosol inhaler
2 inh inhalation Q6H PRN (Reason: shortness of breath or wheezing) Qty: 15 0RF
prednisone 5 mg tablet
5 mg PO BID
oxycodone-acetaminophen 5-325 mg Tablet
1 tab PO TIDPRN PRN (Reason: severe pain)
lactulose 10 gram/15 mL Solution
10 g PO DAILYPRN PRN (Reason: constipation)
Dupixent Pen 300 mg/2 mL Pen Injector
300 mg SC Q2W
Rx Instructions:
every other sunday
Referrals:
NONE,* [Family Provider, Internal Medicine]
Interventions
Interventions:
*Risk Screen - Suicide Last Done: 09/20/25 15:11
*General Assessment Last Done: 09/20/25 15:32
*Neglect/Abuse Screening Last Done: 09/20/25 15:11
*ED- Fall Risk Assessment Last Done: 09/20/25 15:32
*ED COVID-19 Vaccine History Last Done: 09/20/25 15:32
*ED Influenza Vaccine History Last Done: 09/20/25 15:32
ED- Cardiac Assessment Last Done: 09/20/25 15:32
ED- Pulmonary Assessment Last Done: 09/20/25 15:32
Discharge Date and Time
Print Language: CZECH
[2025-09-20 16:58] LABS: Carbon Dioxide 38 mmol/L (22-30)
[2025-09-20 17:03] LABS: Troponin I 0.108 ng/ml
[2025-09-20] MEDS: MAXIPIME 2000 MG IV (17:20)
--- NOTE | 2025-09-20 21:19 | HPS.HSE ---
Family Physician
-
Family Physician: * NONE
Chief Complaint
-
dyspnea
History of Present Illness
Patient is a 70-year-old female with past medical history significant for chronic hypoxic respiratory failure, COPD, hypertension, hypothyroidism, hyperlipidemia, nonobstructive CAD and anxiety who presented to [facility] ED for evaluation of dyspnea.
Patient reports that she had exertional dyspnea today that was associated with extreme heartburn, headache and diaphoresis. Patient reports using 3L O2 at home as baseline on arrival she was on 5L and currently back to 3L. Patient denies any recent
illness, fever, chills, cough, chest pain, palpitations, nausea, vomiting, constipation, diarrhea or urinary symptoms.
Medical History
Past Medical History
Past Medical History: Reports Other
Additional Past Medical History:
Chronic hypoxic respiratory failure
COPD
Primary hypertension
Hypothyroidism
Hyperlipidemia
Nonobstructive CAD
Severe esophagitis
Severe anxiety
Sinus tachycardia
History of breast cancer status post surgery and chemotherapy
Ventral hernia
Past Surgical History: Reports Other
Additional Past Surgical History:
Lumpectomy
Social History
Tobacco: Smoker (Used to smoke for 40 years. At its peak used to smoke 2 pack a day.)
Alcohol: None
Drug: None
Living: With Family
Family History
Family History: Not pertinent
Allergies / Home Medications
Allergies reflects when Allergies were last updated in [employer].
Home Medications with original date entered in [employer]
Allergy/Medication List:
Allergies
Allergy/AdvReac Type Severity Reaction Status Date / Time
Iodinated Contrast Media Allergy Tongue Verified 05/15/25 18:00
Swelling
Iodine and Iodide Containing Allergy Tongue Verified 05/15/25 18:00
Produc Swelling
shellfish derived Allergy Tongue Verified 05/15/25 18:00
Swelling
aspirin AdvReac Nausea / Verified 05/15/25 18:00
Vomiting
ibuprofen AdvReac upset Verified 05/15/25 18:00
stomach
Home Medications
bupropion HCl 300 mg 24 hr tablet, extended release 300 mg PO DAILY Mental Health/Anxiety 02/04/23
dexlansoprazole 60 mg capsule,biphase delayed release 60 mg PO DAILY Gastrointestinal issue 02/04/23
fluticasone 250 mcg-salmeterol 50 mcg/dose blistr powdr for inhalation (Advair Diskus) 1 inh inhalation R BID Lung/breathing issues 02/04/23
ivabradine 5 mg tablet (Corlanor) 5 mg PO BID Heart disease/condition 02/04/23
levocetirizine 5 mg tablet 5 mg PO DAILYPRN PRN allergies 02/04/23
linaclotide 145 mcg capsule (Linzess) 145 mcg PO DAILY Constipation 02/04/23
rosuvastatin 5 mg tablet 5 mg PO HS High cholesterol 02/04/23
vortioxetine 20 mg tablet (Trintellix) 20 mg PO DAILY Mental Health/Anxiety 02/04/23
nifedipine 30 mg tablet,extended release 30 mg PO DAILY #30 tabs 02/12/23
sennosides 8.6 mg tablet (senna) 8.6 mg PO HSPRN PRN Constipation 05/31/23
alprazolam 2 mg tablet 2 mg PO QIDPRN PRN anxiety 02/01/24
docusate sodium 100 mg capsule 100 mg PO HSPRN PRN Constipation 09/12/24
montelukast 10 mg tablet 10 mg PO HS Lung/Breathing Issues 09/12/24
therapeutic multivitamin 1 tab PO DAILY Supplement 09/12/24
tiotropium bromide 2.5 mcg/actuation mist for inhalation (Spiriva Respimat) 1 inh inhalation R DAILY Lung/Breathing Issues 09/12/24
dupilumab 300 mg/2 mL subcutaneous pen injector (Dupixent) 300 mg SC Q2W Lung/Breathing Issues 03/06/25
lactulose 10 gram/15 mL oral solution 10 g PO DAILYPRN PRN constipation 03/06/25
prednisone 5 mg tablet 5 mg PO BID Lung/Breathing Issues 03/06/25
ibuprofen 200 mg tablet (Advil) 400 mg PO Q8HPRN PRN mild pain 09/20/25
levalbuterol tartrate 45 mcg/actuation aerosol inhaler (Xopenex HFA) 2 inh inhalation R Q6HPRN PRN shortness of breath or wheezing 09/20/25
morphine concentrate 20 mg/mL oral syringe (FOR ORAL USE ONLY) 10 mg sublingual Q4HPRN PRN severe pain 09/20/25
ondansetron 8 mg disintegrating tablet 8 mg PO [id number] PRN nausea 09/20/25
zolpidem 12.5 mg tablet,extended release,multiphase (Ambien CR) 12.5 mg PO HSPRN PRN sleep 09/20/25
Review of Systems
-
History Source: Patient
Constitutional: Denies Fever or Chills
EENT: Denies Sore Throat
Respiratory: Reports Trouble Breathing (exertional dyspnea); Denies Cough or Hemoptysis
Cardiac: Reports Chest Pain ('severe heartburn') and Diaphoresis; Denies Palpitations or Syncope
Abdomen/GI: Denies Abdominal Pain, Nausea, Vomiting or Diarrhea
: Denies Dysuria, Frequency or Urgency
Musculoskeletal: Denies Joint Pain
Skin: Denies Rash
Neurological: Reports Headache; Denies Dizzy, Weakness or Numbness
Physical Exam
Vital Signs
Vital Signs
Temp Pulse Resp BP Pulse Ox
98.0 F 125 21 142/70 100
09/20/25 15:11 09/20/25 18:30 09/20/25 18:15 09/20/25 18:00 09/20/25 17:00
Physical Exam
General: Well Developed, Conversant, Respiratory Distress, Appears Chronically Ill and Cachectic
HEENT: NormoCephalic, PERRLA, Nose Appears Normal and Ears Appear Normal
Respiratory: Clear, Wheezes and Decreased Breath Sounds; No Rales, Rhonchi or Non Labored Respirations
Cardiac: Regular Rhythm and Tachycardia; No Murmur, Rub, Gallop or Peripheral Edema
GI: Soft, Non Tender, Non Distended and Normal Bowel Sounds
Musculoskeletal: No Clubbing, No Cyanosis and No Edema
Skin: Warm and IV/Catheter Site
Neuro: Awake and AO x 3
Psych: Calm and Intact Judgment/Insight
Laboratory Results
-
09/20/25 15:31
09/20/25 16:29
Laboratory Results
Lactic Acid Cancelled 09/20/25 21:00
Total Bilirubin 0.4 mg/dl (0.2-1.3) 09/20/25 16:29
AST 96 U/L (14-36) H 09/20/25 16:29
ALT 55 U/L (0-35) H 09/20/25 16:29
Alkaline Phosphatase 141 U/L (38-126) H 09/20/25 16:29
Troponin I 0.108 ng/ml H* 09/20/25 16:29
Data Reviewed
-
Diagnostic Radiology: Report Reviewed by me (CXR: No acute cardiopulmonary process. Hyperinflation.)
Medical Tests (Nuc Med, Echo, EKG etc): Report Reviewed by me (EKG: SINUS TACHYCARDIA RIGHT ATRIAL ENLARGEMENT)
Lab Data: Labs Reviewed by me (WBC 19.7, neut 84.8, Chloride 95, CO2 38, AST 96, ALT 55, Alk Phos 141, trop 0.108, pBNP 1610)
Impression/Plan
-
IMPRESSION/PLAN:
#acute on chronic hypoxic respiratory failure
#COPD exacerbation
c/o exertional dyspnea, severe heartburn, diaphoresis and headache
former smoker
WBC 19.7, neut 84.8, Chloride 95, CO2 38, pBNP 1610
EKG: SINUS TACHYCARDIA
RIGHT ATRIAL ENLARGEMENT
CXR: No acute cardiopulmonary process. Hyperinflation.
- Admit to telemetry
- Consult pulmonary
- continue dupilumab out patient
- continue montelukast
- hold Xopenex HFA, Advair, Spiriva and prednisone
- IV dexamethasone 4mg q12
- Xopenex nebs TID and PRN
- check covid and influenza
#elevated troponin 2/2 NSTEMI vs NIMI
c/o exertional dyspnea, severe heartburn, diaphoresis and headache
Hx ASA allergy
trop 0.108
- Consult Cardiology
- trend troponin
#transaminitis
AST 96, ALT 55, Alk Phos 141
- hold statin
- trend LFTs daily
#Primary hypertension
- continue nifedipine
#Hyperlipidemia
- hold rosuvastatin 2/2 transaminitis
#Severe esophagitis
- continue dexlansoprazole
#Severe anxiety
- continue alprazolam, bupropion and Trintellix
#Sinus tachycardia
- continue ivabradine
Code status: full code
DVT prophylaxis: Lovenox Sq
--- NOTE | 2025-09-20 21:36 | W.PN.UPDATE ---
Update Note
Progress Note Update
This note serves as an addendum to the H&P by overcaster ALBERT�
Blossom Acosta
HPI�
70F Former smoker , HX chr hypoxic RF , chronic 3 L NC O2 dependent COPD/ Asthma seen at ER:
- SoB - describes as difficulty breathing
- no fevers
- no coughing
- denied sputum production
- reports being on prednisone at home for her COPD
@ ER
IV Decadron
DuoNeb
BCx sent and started IV CFP
PHX
Chronic hypoxic respiratory failure, COPD. Asthma
HX tobacco abuse
primary hypertension
hyperlipidemia
HX breast cancer status post lumpectomy and chemotherapy
large ventral hernia with chronic abdominal pain PRN opioid usage
nonobstructive CA
HX gastric ulcer, severe esophagitis
Severe anxiety
Chronic sinus tachycardia
Relevant VS
Vital Signs
Temp Pulse Resp BP Pulse Ox
98.0 F 125 at baseline 21 142/70 100
09/20/25 15:11 09/20/25 18:30 09/20/25 18:15 09/20/25 18:00 09/20/25 17:00
09/20/25
15:11 09/20/25
16:55
SaO2 88 94
Nasal Cannula flow liters per minute 5 5
PE
Gen: moderate respiratory distress
HEENT: anicteric
Neck: supple
Lungs: poor air movement bilaterally, no wheeze at time of my exam s/p DuoNeb
Cor: Tachycardic
Abdomen: large HH, soft
[employer] STOR[employer] WORKER: Alert and oriented to person, place, time, and situation
MS: no edema
Psych: limited
Relevant Data
09/20/25
15:31
WBC 19.7 H
Hgb 11.6 L
Plt Count 423 H
05/15/25 09/20/25
18:16 16:29
Potassium 4.4 4.3
Chloride 101 95 L
Carbon Dioxide 30 38 H
BUN 9 41 H
Creatinine 0.5 L 0.6
eGFR > 60.00 > 60.00
05/15/25 09/20/25 09/20/25
18:16 16:29 17:17
Lactic Acid 1.1
Total Bilirubin 0.5 0.4
AST 23 96 H
ALT 17 55 H
Alkaline Phosphatase 57 141 H
Troponin I < 0.012 0.108 H*
Wug-G-Kzhdxynuhkf Pept 92.4 1610
EKG
SINUS TACHYCARDIA
RIGHT ATRIAL ENLARGEMENT
BORDERLINE ECG
WHEN COMPARED WITH ECG OF 15-May-2025 18:07,
NO SIGNIFICANT CHANGE WAS FOUND
CXR
No acute cardiopulmonary process.
Hyperinflation
09/16/24 TTE:
EF of 55 to 60%.
Aortic sclerosis without stenosis.
Mild to moderate tricuspid regurgitation.
Normal PASP.
Normal biventricular size and systolic function without regional wall motion abnormality.
Last hospitalist admission: 03/06/25 - 03/20/25
ASSESSMENT & PLAN
Pending Rx reconciliation
Acute on chronic hypoxic hypercapnic RF with higher O2 demand due to COPD flare
HX advanced or ES COPD on chr home O2
Ex-smoker
Chr O2 and PO prednisone dependent and HX chr intermittent leucocytosis
- HX POS MRSA ( Aug 2024)
- No AMS
- Pending COVID , pending Flu
- first dose of IV CFP at ER - will hold off for now given NEG CXR for PNA
- IV Decadron 4mg q12h ( s/p Decadron IV 20 at ER)
- Xopenex Nebs due to sinus tachycardia
- Continue Singulair, H1 sergo
- Hold OP Advair, Spiriva as OP
- She follows up with pulmonary at [place]
- Pul consult
Significantly elevated TPNI - NSTEMI vs NIMI
Recent heartburn - was diaphoretic at home today
Recent TTE on 09/16/25 as above
- HX ASA allergy
- Trend TPNI
- c/w PO PPI
- Recent ECHO as above
- CBC card consult
Newly Transaminitis DDX: ALI vs DILI vs shocked liver
- Hold Rosuvastatin
- Trend LFTs daily
Prior PMX: somewhat stable
Benign Hypertension -continue nifedipine
Hyperlipidemia-continue statin
Depression and anxiety-continue Wellbutrin, Xanax and Trintellix
HX Insomnia-continue Ambien as needed
Chronic opiate dependence for pain
Chronic Constipation-Continue Colace/senna/Linzess
Severe esophagitis/peptic ulcer disease-continue PPI
HX Left breast cancer with surgery in the past
HX Large Ventral Hernia
DVT Px: LMWH
Full code
IP TLM
[2025-09-20 22:33] LABS: COVID-19 Antigen Negative (Negative)
[2025-09-21] MEDS: DILAUDID 0.25 MG IV (00:38)
[2025-09-21 00:43] LABS: Troponin I 0.090 ng/ml
[2025-09-21 03:38] VITALS: BP 148/82
[2025-09-21 03:53] LABS: Troponin I 0.080 ng/ml
[2025-09-21] MEDS: MAXIPIME 2000 MG IV ×2 (05:26→16:44)
[2025-09-21] MEDS: STERILE WATER FOR INJECTION 10 ML IV ×2 (05:26→16:44)
[2025-09-21 06:28] LABS: Hematocrit 35.7 % (37.0-47.0); Hemoglobin 10.9 g/dL (12.0-16.0); Mean Corp Hgb Conc. 30.5 g/dL (33.0-37.0); Mean Corpuscular Volume 85.8 fL (81.0-99.0); Platelet Count 402 10^3/uL (130-400); Red Cell Dist. Width 16.3 % (11.5-14.5)
[2025-09-21 06:45] LABS: Troponin I 0.076 ng/ml
[2025-09-21 06:58] LABS: ALT (SGPT) 54 U/L (0-35); AST (SGOT) 78 U/L (14-36); Albumin 3.9 g/dl (3.5-5.0); Alkaline Phosphatase 145 U/L (38-126); Blood Urea Nitrogen 28 mg/dl (7-17); Calcium 10.5 mg/dl (8.4-10.2); Chloride 97 mmol/L (98-107); Estimated Creatinine Clearance 53 ml/min; Glucose 134 mg/dl (70-99); Potassium 4.0 mmol/L (3.5-5.1); Sodium 141 mmol/L (135-145); Total Protein 7.0 g/dl (6.3-8.2); Very Low Density Lipoprotein 21 mg/dl (0-30); eGFR > 60.00
[2025-09-21 07:08] LABS: HDL Cholesterol 111 mg/dl; LDL Cholesterol, Calculated 63 mg/dl
[2025-09-21 07:22] VITALS: BP 147/81
[2025-09-21] MEDS: VENTOLIN NEBULES 2.5 MG INH ×3 (08:04→19:24)
--- NOTE | 2025-09-21 08:19 | CON.CAR ---
Addendum entered and electronically signed by Cesar Hendrickson MD 09/21/25 09:25:
I saw and evaluated the patient, and I provided the substantive portion of the medical decision making.
I reviewed and agree with the note by Isaura BUENO and it accurately reflects our care.
I personally performed the medical decision making of the this encounter and my assessment and plan is below:
70-year-old female with a past medical history of COPD, chronic hypoxic respiratory failure on 3 L of nasal cannula, sinus tachycardia and hyperlipidemia presents for evaluation of shortness of breath. Additionally, she tells me she feels as though
her belly has been filling up with fluid. She states this has been happening for some time now. We are asked to comment on abnormal troponin on exam she appears comfortable, she has a rapid rate but regular rhythm, lungs are clear to auscultation
but decreased diffusely with prolonged expiratory phase, abdomen has a large soft mass filling the most of the anterior abdominal cavity, it is not reducible. No lower extremity edema.
Data reviewed EKG shows sinus tachycardia with incomplete right bundle branch pattern.
Chest x-ray images hyperinflated no CHF
Troponins 0.108, 0.090, 0.080, 0.076
LFTs are elevated
Assessment:
Acute failure in the setting of COPD exacerbation, care as per medicine
Nonischemic myocardial injury in the setting of acute hypoxic respiratory failure: no c/o cp
Chronic sinus tachycardia
Abdominal pain with large anterior mass
Hypertension
Plan:
Treat COPD exacerbation
consider abdominal imaging of anterior mass given complaint of abdominal pain
We will update her echocardiogram.
Normally on colanor does not have access to it inpatient, can start diltiazem as blood pressure also slightly elevated
If echo is normal I will sign off and see again at your request
Original Note:
Consultation
Consultation Request
Date/Time Consultation Requested: 09/20/2025 23:00
Date/Time Consultation Performed: 09/21/2025 08:00
Requesting Provider: MYLES Maldonado
Performing Provider: MYLES Johnson for Dr. Hendrickson
Reason for Consultation: Abnormal troponin
Medical History
-
Chief Complaint: Shortness of breath
History of Present Illness:
Danielle Nuñez is a 70-year-old female (does not follow with cardiology in the outpatient setting), with COPD, chronic hypoxemic respiratory failure on 3 L nasal cannula, sinus tachycardia, dyslipidemia, prior breast cancer status post
lumpectomy and XRT, and anxiety who presented to the emergency department the chief complaint of shortness of breath. Her dyspnea got worse throughout yesterday. She required an increase in her oxygen. She denies chest pain, dizziness, and
palpitations. No syncopal episodes at home. Cardiology was consulted for an abnormal troponin. EKG without acute ischemia. She is not having any chest pain as above. On exam, she is visibly short of breath and is endorsing abdominal pain.
Past Medical History
Past Medical History: Cancer (Breasts s/p lumpectomy and XRT), COPD, Hypercholesterolemia and Psychiatric (Anxiety)
Past Surgical History: Other (Lumpectomy)
Social History
Tobacco: Former Smoker
Alcohol: None
Drug: None
Personal:
Living: With Family (Daughter and son-in-law)
Employment: Retired
Family History
Family History: Reviewed & Not Pertinent
Allergies / Home Medications
Allergy/AdvReac Type Severity Reaction Status Date / Time
Iodinated Contrast Media Allergy Tongue Verified 05/15/25 18:00
Swelling
Iodine and Iodide Containing Allergy Tongue Verified 05/15/25 18:00
Produc Swelling
shellfish derived Allergy Tongue Verified 05/15/25 18:00
Swelling
aspirin AdvReac Nausea / Verified 05/15/25 18:00
Vomiting
ibuprofen AdvReac upset Verified 05/15/25 18:00
stomach
�Medication �Instructions �Recorded �Confirmed �Type
bupropion HCl 300 mg 24 hr tablet, 300 mg PO DAILY Mental 02/04/23 09/20/25 History
extended release Health/Anxiety
dexlansoprazole 60 mg 60 mg PO DAILY Gastrointestinal 02/04/23 09/20/25 History
capsule,biphase delayed release issue
fluticasone 250 mcg-salmeterol 50 1 inh inhalation R BID 02/04/23 09/20/25 History
mcg/dose blistr powdr for Lung/breathing issues
inhalation (Advair Diskus)
ivabradine 5 mg tablet (Corlanor) 5 mg PO BID Heart disease/condition 02/04/23 09/20/25 History
levocetirizine 5 mg tablet 5 mg PO DAILYPRN PRN allergies 02/04/23 09/20/25 History
linaclotide 145 mcg capsule 145 mcg PO DAILY Constipation 02/04/23 09/20/25 History
(Linzess)
rosuvastatin 5 mg tablet 5 mg PO HS High cholesterol 02/04/23 09/20/25 History
vortioxetine 20 mg tablet 20 mg PO DAILY Mental 02/04/23 09/20/25 History
(Trintellix) Health/Anxiety
nifedipine 30 mg tablet,extended 30 mg PO DAILY #30 tabs 02/12/23 09/20/25 Rx
release
sennosides 8.6 mg tablet (senna) 8.6 mg PO HSPRN PRN Constipation 05/31/23 09/20/25 History
alprazolam 2 mg tablet 2 mg PO QIDPRN PRN anxiety 02/01/24 09/20/25 History
docusate sodium 100 mg capsule 100 mg PO HSPRN PRN Constipation 09/12/24 09/20/25 History
montelukast 10 mg tablet 10 mg PO HS Lung/Breathing Issues 09/12/24 09/20/25 History
therapeutic multivitamin 1 tab PO DAILY Supplement 09/12/24 09/20/25 History
tiotropium bromide 2.5 1 inh inhalation R DAILY 09/12/24 09/20/25 History
mcg/actuation mist for inhalation Lung/Breathing Issues
(Spiriva Respimat)
dupilumab 300 mg/2 mL subcutaneous 300 mg SC Q2W Lung/Breathing Issues 03/06/25 09/20/25 History
pen injector (Dupixent)
lactulose 10 gram/15 mL oral 10 g PO DAILYPRN PRN constipation 03/06/25 09/20/25 History
solution
prednisone 5 mg tablet 5 mg PO BID Lung/Breathing Issues 03/06/25 09/20/25 History
ibuprofen 200 mg tablet (Advil) 400 mg PO Q8HPRN PRN mild pain 09/20/25 09/20/25 History
levalbuterol tartrate 45 2 inh inhalation R Q6HPRN PRN 09/20/25 09/20/25 History
mcg/actuation aerosol inhaler shortness of breath or wheezing
(Xopenex HFA)
morphine concentrate 20 mg/mL oral 10 mg sublingual Q4HPRN PRN severe 09/20/25 09/20/25 History
syringe (FOR ORAL USE ONLY) pain
ondansetron 8 mg disintegrating 8 mg PO [id number] PRN nausea 09/20/25 09/20/25 History
tablet
zolpidem 12.5 mg tablet,extended 12.5 mg PO HSPRN PRN sleep 09/20/25 09/20/25 History
release,multiphase (Ambien CR)
Review of Systems
-
History Source: Patient
All other systems: Negative unless noted
Constitutional: Fatigue
EENT: No Symptoms
Respiratory: Trouble Breathing
Cardiac: No Symptoms
Abdomen/GI: Abdominal Pain
: No Symptoms
Musculoskeletal: No Symptoms
Skin: No Symptoms
Neurological: No Symptoms
Endocrine: No Symptoms
Hematologic/Lymphatic: No Symptoms
Physical Exam
Vital Signs
Temp Pulse Resp BP Pulse Ox
99.0 F 132 18 147/81 100
09/21/25 07:22 09/21/25 07:22 09/21/25 07:22 09/21/25 07:22 09/21/25 07:22
Lab Results
09/21/25 06:03
09/21/25 06:03
Troponin I 0.076 ng/ml H* 09/21/25 06:03
Uuc-W-Wpnmnuetmdm Pept 1610 pg/ml 09/20/25 16:29
Physical Exam
General: Well Developed and Respiratory Distress
HEENT: Normocephalic and Anicteric
Respiratory: Wheezes
Cardiac: S1/S2 and Regular Rhythm (Tachycardia); Negative Peripheral Edema
Breast: Deferred by me
GI: Soft, Non Tender, Non Distended and Normal Bowel Sounds
Rectal: Deferred by Provider
Genito-urinary: No Costovertebral Tender
Musculoskeletal: No Clubbing, No Cyanosis and No Edema
Skin: Warm and Dry
Neuro: Awake and Alert
Hematologic/Lymphatic: No Lymphadenopathy
Psych: Calm
Impression / Plan
-
I/P: 70F with COPD, chronic hypoxemic respiratory failure on 3 L nasal cannula, dyslipidemia, prior breast cancer status postlumpectomy and XRT, and anxiety who presented to the emergency department the chief complaint of shortness of breath.
Acute on chronic hypoxemic respiratory failure, in the setting of COPD exacerbation
- On steroids, pulmonary consulted
Abnormal troponin, nonischemic myocardial injury in the setting of acute illness
- Trend: 0.108, 0.090, 0.080, 0.076
- EKG without acute ischemia
Sinus tachycardia, on ivabradine
Dyslipidemia, rosuvastatin on hold
Mild to moderate tricuspid regurgitation
Other chronic medical conditions:
Ventral hernia, chronic, not a surgical candidate
Breast cancer status postlumpectomy and XRT
Anxiety, chronic
Former smoker, continued cessation recommended
Data Reviewed
-
EKG: Discussed with Physician
Radiology: Discussed with Physician
Medical Tests (Nuc Med, Echo etc): Report Reviewed by me
Labs: Labs Reviewed by me
Old Records: Reviewed
[2025-09-21] MEDS: PROTONIX 40 MG PO (08:21)
[2025-09-21] MEDS: WELLBUTRIN XL (24 hour extended release) 300 MG PO (08:21)
[2025-09-21] MEDS: PROCARDIA XL (EXTENDED RELEASE) 30 MG PO (08:21)
[2025-09-21] MEDS: HEPARIN 5000 UNITS SC ×2 (08:22→19:58)
[2025-09-21] MEDS: DECADRON 4 MG IV ×2 (08:22→19:59)
[2025-09-21 09:06] LABS: Carbon Dioxide 37 mmol/L (22-30)
--- NOTE | 2025-09-21 09:10 | W.PN.HOSP.TC ---
Today's Communication/Plan
-
see plan
Assessment / Plan
Assessment / Plan
CXR: No acute cardiopulmonary process. Hyperinflation.
Acute on chronic hypoxic respiratory failure
COPD exacerbation
Former Tobacco use
- patient with shortness of breath on exertion
- she has known severe COPD
- Admitted to telemetry
- Consult pulmonary
- continue dupilumab out patient
- continue montelukast
- IV dexamethasone 4mg q12
- Xopenex nebs TID and PRN (will see if daughter can bring in given tachycardia)
- flu and covid negative
#elevated troponin 2/2 NSTEMI vs NIMI
Sinus Tachycardia
Hx ASA allergy
trop 0.108
- appreciate Cardiology consult
- TTE ordered
- on Corlanor as outpatient - will see if daughter can bring in
Chronic Ventral Hernia with Bowel
Chronic abdominal pain
Transaminitis
-per daughter, patient is not a surgical candidate. She was transferred to [facility] February of this year
- she is on morphine for pain at home, daughter was concerned she took too much. I have re-ordered at lower dosing
-with transaminitis and increase in pain per patient - I will repeat CT with contrast
-hold Statin
#Primary hypertension
- continue nifedipine
#Hyperlipidemia
- hold rosuvastatin 2/2 transaminitis
#Severe esophagitis
- continue dexlansoprazole
#Severe anxiety
- continue alprazolam, bupropion and Trintellix
#Sinus tachycardia
- continue ivabradine
Code status: full code
DVT prophylaxis: Lovenox Sq
51 minutes spent on patient care
Anticipated Discharge: 24 - 48 hours
Subjective/Interval History
-
Date of Service: September 21, 2025
patient reports that her breathing is slightly better
she reports she had chest pain yesterday evening associated with sweating and is now resolved
she also reports that her chronic abdominal pain is worse than normal and can't remember when she had her last BM. spoke to daughter who was concerned she took too much morphine at home and was confused, also concerned she may be constipated
Objective Data
-
Labs:
Laboratory Results
09/21/25
06:03
WBC 13.8 H
Hgb 10.9 L
Hct 35.7 L
Plt Count 402 H
Sodium 141
Potassium 4.0
Chloride 97 L
Carbon Dioxide 37 H
BUN 28 H
Creatinine 0.5 L
Glucose 134 H
Calcium 10.5 H
Total Bilirubin 0.6
AST 78 H
ALT 54 H
Alkaline Phosphatase 145 H
Vital Signs:
Vital Signs
Temp Pulse Resp BP Pulse Ox
99.0 F 132 18 147/81 100
09/21/25 07:22 09/21/25 07:22 09/21/25 07:22 09/21/25 08:21 09/21/25 07:22
I&O
09/20/25 09/21/25 09/22/25
06:59 06:59 06:59
Intake Total 380 / 380
Balance 380 / 380
Review of Systems
-
History Source: Patient
All other systems: Reviewed and negative
Physical Exam
-
General: No Apparent Distress and Other (frail appearing)
HEENT: PERRLA
Respiratory: Wheezes (end expiratory )
Cardiac: Regular Rhythm and S1/S2
GI: Other (large ventral hernia)
Musculoskeletal: No Edema
Neuro: AO x 3
Psych: Calm
Data Reviewed
-
Diagnostic Radiology: Report Reviewed by me
Labs: Labs Reviewed by me
--- NOTE | 2025-09-21 09:25 | CON.PUL ---
Consultation
Consultation Request
Date/Time Consultation Requested: 09/21/25
Date/Time Consultation Performed: 09/21/25
Performing Provider: Jael
Reason for Consultation: SOB
Medical History
-
History of Present Illness:
Patient is a 70-year-old female with previous history of severe COPD, hernia, severe protein calorie malnutrition, presenting with exertional dyspnea with decreased p.o. intake, heartburn, headache, diaphoresis. She normally uses 3 L at home as
baseline she is currently on baseline oxygen usage. She is noted to be on palliative care at home, on p.o. morphine. She denies any pain at this time, does admit to decreased p.o. intake, appetite. She has had prior frequent admissions for
similar.
Past Medical History
Past Medical History: Other (see list below)
Social History
Tobacco: Former Smoker
Alcohol: None
Drug: None
Family History
Family History: Reviewed & Not Pertinent
Allergies / Home Medications
Allergies
Allergy/AdvReac Type Severity Reaction Status Date / Time
Iodinated Contrast Media Allergy Tongue Verified 05/15/25 18:00
Swelling
Iodine and Iodide Containing Allergy Tongue Verified 05/15/25 18:00
Produc Swelling
shellfish derived Allergy Tongue Verified 05/15/25 18:00
Swelling
aspirin AdvReac Nausea / Verified 05/15/25 18:00
Vomiting
ibuprofen AdvReac upset Verified 05/15/25 18:00
stomach
Home Medications
�Medication �Instructions �Recorded �Confirmed �Last Taken �Type
bupropion HCl 300 mg 24 hr tablet, 300 mg PO DAILY Mental 02/04/23 09/20/25 04/06/24 08:00 History
extended release Health/Anxiety
dexlansoprazole 60 mg 60 mg PO DAILY Gastrointestinal 02/04/23 09/20/25 04/05/24 08:00 History
capsule,biphase delayed release issue
fluticasone 250 mcg-salmeterol 50 1 inh inhalation R BID 02/04/23 09/20/25 04/05/24 20:00 History
mcg/dose blistr powdr for Lung/breathing issues
inhalation (Advair Diskus)
ivabradine 5 mg tablet (Corlanor) 5 mg PO BID Heart disease/condition 02/04/23 09/20/25 04/06/24 08:00 History
levocetirizine 5 mg tablet 5 mg PO DAILYPRN PRN allergies 02/04/23 09/20/25 03/29/24 08:00 History
linaclotide 145 mcg capsule 145 mcg PO DAILY Constipation 02/04/23 09/20/25 04/06/24 08:00 History
(Linzess)
rosuvastatin 5 mg tablet 5 mg PO HS High cholesterol 02/04/23 09/20/25 04/05/24 20:00 History
vortioxetine 20 mg tablet 20 mg PO DAILY Mental 02/04/23 09/20/25 04/05/24 08:00 History
(Trintellix) Health/Anxiety
nifedipine 30 mg tablet,extended 30 mg PO DAILY #30 tabs 02/12/23 09/20/25 04/06/24 08:00 Rx
release
sennosides 8.6 mg tablet (senna) 8.6 mg PO HSPRN PRN Constipation 05/31/23 09/20/25 04/05/24 08:00 History
alprazolam 2 mg tablet 2 mg PO QIDPRN PRN anxiety 02/01/24 09/20/25 04/05/24 20:00 History
docusate sodium 100 mg capsule 100 mg PO HSPRN PRN Constipation 09/12/24 09/20/25 Unknown History
montelukast 10 mg tablet 10 mg PO HS Lung/Breathing Issues 09/12/24 09/20/25 Unknown History
therapeutic multivitamin 1 tab PO DAILY Supplement 09/12/24 09/20/25 Unknown History
tiotropium bromide 2.5 1 inh inhalation R DAILY 09/12/24 09/20/25 Unknown History
mcg/actuation mist for inhalation Lung/Breathing Issues
(Spiriva Respimat)
dupilumab 300 mg/2 mL subcutaneous 300 mg SC Q2W Lung/Breathing Issues 03/06/25 09/20/25 02/23/25 History
pen injector (Dupixent)
lactulose 10 gram/15 mL oral 10 g PO DAILYPRN PRN constipation 03/06/25 09/20/25 Unknown History
solution
prednisone 5 mg tablet 5 mg PO BID Lung/Breathing Issues 03/06/25 09/20/25 Unknown History
ibuprofen 200 mg tablet (Advil) 400 mg PO Q8HPRN PRN mild pain 09/20/25 09/20/25 Unknown History
levalbuterol tartrate 45 2 inh inhalation R Q6HPRN PRN 09/20/25 09/20/25 Unknown History
mcg/actuation aerosol inhaler shortness of breath or wheezing
(Xopenex HFA)
morphine concentrate 20 mg/mL oral 10 mg sublingual Q4HPRN PRN severe 09/20/25 09/20/25 Unknown History
syringe (FOR ORAL USE ONLY) pain
ondansetron 8 mg disintegrating 8 mg PO [id number] PRN nausea 09/20/25 09/20/25 Unknown History
tablet
zolpidem 12.5 mg tablet,extended 12.5 mg PO HSPRN PRN sleep 09/20/25 09/20/25 Unknown History
release,multiphase (Ambien CR)
Review of Systems
-
History Source: Patient
All other systems: Negative unless noted
Vitals / Labs / Diagnostic Testing
Vital Signs
Temp Pulse Resp BP Pulse Ox
99.0 F 132 18 147/81 100
09/21/25 07:22 09/21/25 07:22 09/21/25 07:22 09/21/25 08:21 09/21/25 07:22
Lab Data
09/21/25 06:03
09/21/25 06:03
Microbiology
09/20/25 22:04 Nasal Swab Influenza Types A & B (ROSANA) - Final
Negative for Influenza A & B, NAAT
Negative results must be combined with clinical observations
and patient history.
Nucleic Acid Amplification test (NAAT)performed on the
[employer] a division [employer] platform.
Diagnostic Testing:
Physical Exam
-
HEENT: Normocephalic, Anicteric, Moist Mucous Membranes and Other (temporal wasting)
Cardiovascular: S1/S2 and Regular Rhythm
Respiratory: Clear and Non-Labored Respirations
GI: Distended and Organomegaly
Neurology: Awake, Alert, Oriented and No Motor Deficits
Skin: Warm, Dry and Good Color
General: Comfortable, Poor Appetite and Other (thin, cachectic appearing)
Assessment
-
Patient is a 70-year-old female with previous history of severe COPD, hernia, severe protein calorie malnutrition, presenting with exertional dyspnea with decreased p.o. intake, heartburn, headache, diaphoresis. She normally uses 3 L at home as
baseline she is currently on baseline oxygen usage. She is noted to be on palliative care at home, on p.o. morphine. She denies any pain at this time, does admit to decreased p.o. intake, appetite. She has had prior frequent admissions for
similar.
Acute on chronic SOB
Chronic large supraumbilical and umbilical hernia
Leukocytosis
Troponin elevation
Mildly elevated BNP, 1610, prior 50-100
Severe protein calorie malnutrition, Underweight BMI 15
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
Adm DH 04-03 to : AECOPD, RLL pneumonia
[facility] admission (02-04 to ): respiratory failure requiring intubation at ER, extubated 02-05
Upper GI bleed/Prior history of gastric ulcers in 2022
Chronic hypoxemic and hypercapnic respiratory failure
Apparently uses CPAP at night/Has refused trilogy in the past per records.
Advanced COPD, O2 dependent
On chronic low dose prednisone at 5 mg qd
COPD-follows up with [facility] pulmonology.
On Spiriva/Advair/low-dose prednisone
Chronic anemia-normocytic. Possibly from chronic disease.
Former Smoker (Quit 1-2 years ago. > 40 pack years total use)
Anxiety/Depression/Insomnia
History of Breast Cancer s/p Lumpectomy, Chemo and XRT
Large Ventral Hernia
MRSA screening + 02/05/2023
Mild PH
Hypertension and hyperlipidemia
Diabetes mellitus
Hypothyroidism
Plan
Currently saturating over 90% on 3 L, she is on her baseline O2 usage at this time
Prior history of lung disease is noted including severe COPD, and stage--she follows at [facility]
She is maintained on chronic prednisone
Suspect patient has acute on chronic shortness of breath due to severe COPD, untreated hernia
CXR/CT obtained indicating no acute process, unchanged from prior--she does have significant hyperinflation
Other imaging reviewed--ongoing ventral hernia, she was told she is not an operable candidate due to her severe COPD
Prior ECHO results are reviewed indicating preserved function, she does have mild pulmonary hypertension
proBNP mildly elevated on this admission 1610, compared to prior baseline 50�100
May consider additional diuresis
She has severe protein calorie malnutrition, BMI is 15
She endorses decreased p.o. intake and appetite likely due to her hernia
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
On top of severe COPD/end stage as noted in her record, she has multiple readmissions in the past 3 years
O2 dependant, chronic hypercarbia not on PAP
On outpatient palliative care on PO morphine--hospice was discussed per notes
I would consider hospice discussions as she has no meaningful chance for recovery given her multiple severe untreatable conditions
She remains full code
We will follow
Diagnostic Data
CXR 09/20/25: No acute cardiopulmonary process. Hyperinflation.
CXR 02/2025: Findings suggesting a new mild left upper lobe pneumonia. Repeat exam in 2 weeks following treatment recommended to exclude an underlying mass. Clinical and laboratory correlation recommended as well.
CXR PA/lat 05-30-23 c/w below. No pulm infiltrates
CXR 04-06-23 c/w January. Baseline portable film with no infiltrates. Latest film wit interim improvement in patchy infiltrates/^lung water content
ECHO 08/2024: Normal biventricular size and systolic function without regional wall motion abnormality. Estimated LVEF 55-60%. Aortic sclerosis without stenosis. Mild/moderate tricuspid regurgitation. Normal PASP. Compared to 02/06/23: TR has
improved from moderate to mild/moderate. PASP has decreased from 45 mmHg to 36 mmHg.
TTE 02-06-23 CONCLUSIONS: Normal left ventricular size (visually, pLAX views limit accurate measurement), wall thickness and systolic function. LV ejection fraction is 63% by volumetric assessment.
Dilated right ventricle with normal systolic function. No significant valvular disease. Mild pulmonary hypertension. No prior study available for comparison.
CT Chest 01/2023: No findings to confirm central pulmonary embolism. Findings compatible with centrilobular type emphysema as well as some likely bilateral chronic interstitial changes. No pneumothorax or pleural effusion.
CT abd/p 04-07-23 IMPRESSION: Changes of emphysema within the visualized lower lungs. Bronchial wall thickening in the right lower lung which is likely from chronic bronchitis. Linear densities within the anterior and inferior aspect of the right
lower lobe of the lung, which is likely scarring. Small to moderate central hiatal hernia. There is a large hernia in the midline anterior abdominal wall, increased in size compared to most recent examination of February 06, 2023. This hernia now
contains a portion of colon which is new from most recent examination, but colon was also was present herniating through this defect on CT examination of September 16, 2022. There is no CT evidence to suggest strangulation or bowel obstruction. Ovoid
mass in the left posterolateral pelvis without significant interval change dating back to CT examination of September 16, 2022, suggesting that this is likely a benign pelvic mass originating from the left ovary.
Reports and relevant images were personally reviewed.
Total time spent on this consultation __75__ minutes which includes review of history, physical exam, medications, laboratory data, personal review of imaging, extensive review of outpatient records, discussion with care team and respiratory therapy.
[2025-09-21] MEDS: ZOFRAN 4 MG IV (09:27)
[2025-09-21 09:48] LABS: Glycohemoglobin (HgbA1c) 6.3 % (4.0-5.9)
--- NOTE | 2025-09-21 09:57 | PTCARENOTE ---
pt with nausea and small episode of emesis within the room. MD aware and prn stat ralphfryue ordered. daughter called and medications from home that we do not carry are being brought in this afternoon.
--- NOTE | 2025-09-21 10:18 | W.PN.UPDATE ---
Update Note
Progress Note Update
I just revisited patient to check in on her and she is sitting up in bed asking where her food is. She denies any pain. I can push on hernia with minimal pain. I am going to start with abdominal x-ray to evaluate level of constipation. If she has
any nausea/vomiting or significant pain post eating then will obtain CT. She was told she is not a surgical candidate.
--- NOTE | 2025-09-21 10:20 | CM ---
CM following re: discharge planning.
Reviewed pt's chart, met with pt.
Pt is a 70 year old female, admitted with primary dx of acute on chronic hypoxic respiratory failure. COPD exacerbation
Pt lives in daughter split level home with 0 steps to enter and 10 steps to bed, bathroom. Patient is assisted with ADL. She uses a cane and walker with ambulation. She has home oxygen with [employer] - 3-4 L NC at baseline. Pt stated she was at [facility] in the past and if she needs to go to [facility] she would prefer [facility].
Pt has Palliative care services.
PT and OT will evaluate the pt to determine a level of care at discharge.
D/C plan: home with VN vs [facility] if recommended.
CM will follow with discharge plan updates as hospitalization progresses
[2025-09-21] MEDS: ADVAIR HFA 115/21 MCG INHALER 2 PUFF INH ×2 (11:34→19:24)
[2025-09-21] MEDS: SPIRIVA RESPIMAT 2.5 MCG 1 PUFF INH (11:35)
[2025-09-21 11:36] VITALS: BP 146/87
[2025-09-21 12:24] LABS: B.E. 15.9 mmol/L; O2 Saturation % 98.9 % (94-98); PCO2 56 mmHg (32-35); PO2 93 mmHg (83-108)
[2025-09-21 12:27] LABS: HCO3 41.7 mmol/L (21-28)
[2025-09-21] MEDS: CARDIZEM 60 MG PO ×3 (12:54→21:30)
--- NOTE | 2025-09-21 13:03 | PTCARENOTE ---
pt with sinus tachycardia and HR hitting 170s on tele. MD and cardiology made aware. stat dose of cardizem given and pt started on cardizem TID. See MAR
[2025-09-21 15:12] VITALS: BP 127/76
[2025-09-21] MEDS: NON-FORMULARY ITEM 20 MG PO (15:33)
[2025-09-21] MEDS: NON-FORMULARY ITEM 5 MG PO ×2 (15:33→19:59)
[2025-09-21 17:35] VITALS: BMI 15.2
--- NOTE | 2025-09-21 18:46 | CON.GS ---
Consultation
-
Date/Time Consultation Requested: 09/21/2025 3 PM
Date/Time Consultation Performed: 09/21/2025 3 PM
Requesting Provider: Dr. Ocampo
Performing Provider: Dr. Hammond
Reason for Consultation: Incarcerated ventral hernia
Medical History
-
Chief Complaint: Ventral hernia
History of Present Illness:
Ms. Pan is a 69 yo female with a h/o COPD on home oxygen, breast ca and known large ventral and hiatal hernias. She has been seen by our service in the past with hernia followed non-operatively as her ancillary services manager therapy at [facility] had advised patient
that she is not a surgical candidate. At baseline the hernia is chronically protuberant and does cause her some pain, she has worn and abdominal binder intermittently in the past. She was admitted for COPD exacerbation and developed increased pain
at her ventral hernia site as well as n/v overnight. She is unsure if she is passing flatus. She has chronic constipation. During my encounter she denies nausea.
Past Medical History
Past Medical History: COPD
Past Surgical History: Reviewed & Noncontributory
Social History
Tobacco: Non-Smoker
Alcohol: None
Employment: Not Employed
Family History
Family History: Reviewed & Not Pertinent
Allergies / Home Medications
Allergy/AdvReac Type Severity Reaction Status Date / Time
Iodinated Contrast Media Allergy Tongue Verified 05/15/25 18:00
Swelling
Iodine and Iodide Containing Allergy Tongue Verified 05/15/25 18:00
Produc Swelling
shellfish derived Allergy Tongue Verified 05/15/25 18:00
Swelling
aspirin AdvReac Nausea / Verified 05/15/25 18:00
Vomiting
ibuprofen AdvReac upset Verified 05/15/25 18:00
stomach
�Medication �Instructions �Recorded �Confirmed �Type
bupropion HCl 300 mg 24 hr tablet, 300 mg PO DAILY Mental 02/04/23 09/20/25 History
extended release Health/Anxiety
dexlansoprazole 60 mg 60 mg PO DAILY Gastrointestinal 02/04/23 09/20/25 History
capsule,biphase delayed release issue
fluticasone 250 mcg-salmeterol 50 1 inh inhalation R BID 02/04/23 09/20/25 History
mcg/dose blistr powdr for Lung/breathing issues
inhalation (Advair Diskus)
ivabradine 5 mg tablet (Corlanor) 5 mg PO BID Heart disease/condition 02/04/23 09/20/25 History
levocetirizine 5 mg tablet 5 mg PO DAILYPRN PRN allergies 02/04/23 09/20/25 History
linaclotide 145 mcg capsule 145 mcg PO DAILY Constipation 02/04/23 09/20/25 History
(Linzess)
rosuvastatin 5 mg tablet 5 mg PO HS High cholesterol 02/04/23 09/20/25 History
vortioxetine 20 mg tablet 20 mg PO DAILY Mental 02/04/23 09/20/25 History
(Trintellix) Health/Anxiety
nifedipine 30 mg tablet,extended 30 mg PO DAILY #30 tabs 02/12/23 09/20/25 Rx
release
sennosides 8.6 mg tablet (senna) 8.6 mg PO HSPRN PRN Constipation 05/31/23 09/20/25 History
alprazolam 2 mg tablet 2 mg PO QIDPRN PRN anxiety 02/01/24 09/20/25 History
docusate sodium 100 mg capsule 100 mg PO HSPRN PRN Constipation 09/12/24 09/20/25 History
montelukast 10 mg tablet 10 mg PO HS Lung/Breathing Issues 09/12/24 09/20/25 History
therapeutic multivitamin 1 tab PO DAILY Supplement 09/12/24 09/20/25 History
tiotropium bromide 2.5 1 inh inhalation R DAILY 09/12/24 09/20/25 History
mcg/actuation mist for inhalation Lung/Breathing Issues
(Spiriva Respimat)
dupilumab 300 mg/2 mL subcutaneous 300 mg SC Q2W Lung/Breathing Issues 03/06/25 09/20/25 History
pen injector (Dupixent)
lactulose 10 gram/15 mL oral 10 g PO DAILYPRN PRN constipation 03/06/25 09/20/25 History
solution
prednisone 5 mg tablet 5 mg PO BID Lung/Breathing Issues 03/06/25 09/20/25 History
ibuprofen 200 mg tablet (Advil) 400 mg PO Q8HPRN PRN mild pain 09/20/25 09/20/25 History
levalbuterol tartrate 45 2 inh inhalation R Q6HPRN PRN 09/20/25 09/20/25 History
mcg/actuation aerosol inhaler shortness of breath or wheezing
(Xopenex HFA)
morphine concentrate 20 mg/mL oral 10 mg sublingual Q4HPRN PRN severe 09/20/25 09/20/25 History
syringe (FOR ORAL USE ONLY) pain
ondansetron 8 mg disintegrating 8 mg PO [id number] PRN nausea 09/20/25 09/20/25 History
tablet
zolpidem 12.5 mg tablet,extended 12.5 mg PO HSPRN PRN sleep 09/20/25 09/20/25 History
release,multiphase (Ambien CR)
Review of Systems
-
Unable to obtain full review of systems at this time due to: Dementia
All other systems: Negative unless noted
A 10 point review of systems was completed, and was negative except as per HPI.
Physical Exam
Vital Signs
Temp Pulse Resp BP Pulse Ox
98.4 F 120 18 127/76 96
09/21/25 15:12 09/21/25 15:12 09/21/25 15:12 09/21/25 15:32 09/21/25 15:12
09/20/25 09/21/25 09/22/25
06:59 06:59 06:59
Actual Weight 38.828 kg
Body Mass Index (BMI) 15.2
Lab Results
09/21/25 06:03
09/21/25 06:03
WBC 13.8 10^3/uL (4.8-10.8) H 09/21/25 06:03
Hgb 10.9 g/dL (12.0-16.0) L 09/21/25 06:03
Hct 35.7 % (37.0-47.0) L 09/21/25 06:03
Plt Count 402 10^3/uL (130-400) H 09/21/25 06:03
Abs Immat Gran (auto) 0.1 10^3/uL (0-0.05) H 09/20/25 15:31
Neutrophils % 84.8 % (42.2-75.2) H 09/20/25 15:31
Physical Exam
General: Well Developed and No Apparent Distress
HEENT: Normocephalic
GI: Soft, Non Tender, Distended and Other (Large chronically incarcerated ventral hernia but soft and no evidence of obstruction or overlying skin changes.)
Neuro: Awake and Alert
Data Reviewed
-
Radiology: Image Personally Visualized and interpreted
CT Scan: Image Personally Visualized and interpreted
Labs: Labs Reviewed by me
Total Time Spent with Patient (in minutes): 20
Assessment / Plan
-
This is a 70-year-old female with a known chronically incarcerated but non-strangulated ventral hernia that is soft, wide-mouth and at low risk for clinical compromise. She was seen and evaluated by surgeons at the [facility] and
told that she was not a surgical candidate due to poor pulmonary function status.
No acute surgical intervention warranted at this time.
Recommend placing an abdominal binder on the patient particularly when mobilizing.
Surgery will sign off for now, please call with any questions or concerns.
I spent 60 minutes in total for the care of this patient today including direct patient care and counseling, reviewing labs, imaging, coordination of care, as well as documentation.
[2025-09-21 19:18] VITALS: BP 129/77
[2025-09-21] MEDS: SINGULAIR 10 MG PO (21:31)
[2025-09-21 23:18] VITALS: BP 123/69
[2025-09-22] VITALS (8 sets, daily range): BP systolic 101–144; BP diastolic 60–79; PULSE 83–84; O2SAT 98
[2025-09-22] MEDS: STERILE WATER FOR INJECTION 10 ML IV ×2 (05:31→17:30)
[2025-09-22] MEDS: MAXIPIME 2000 MG IV (05:31)
[2025-09-22] MEDS: ADVAIR HFA 115/21 MCG INHALER 2 PUFF INH ×2 (07:10→19:34)
[2025-09-22] MEDS: SPIRIVA RESPIMAT 2.5 MCG 1 PUFF INH (07:10)
[2025-09-22] MEDS: VENTOLIN NEBULES 2.5 MG INH ×3 (07:10→19:34)
[2025-09-22 07:19] LABS: Hematocrit 34.3 % (37.0-47.0); Hemoglobin 10.6 g/dL (12.0-16.0); Mean Corp Hgb Conc. 30.9 g/dL (33.0-37.0); Mean Corpuscular Volume 87.1 fL (81.0-99.0); Platelet Count 346 10^3/uL (130-400); Red Cell Dist. Width 15.9 % (11.5-14.5)
[2025-09-22] MEDS: PROTONIX 40 MG PO (08:03)
[2025-09-22] MEDS: WELLBUTRIN XL (24 hour extended release) 300 MG PO (08:03)
[2025-09-22] MEDS: CARDIZEM 60 MG PO (08:03)
[2025-09-22] MEDS: PROCARDIA XL (EXTENDED RELEASE) 30 MG PO (08:04)
[2025-09-22] MEDS: NON-FORMULARY ITEM 20 MG PO (08:05)
[2025-09-22] MEDS: NON-FORMULARY ITEM 5 MG PO ×2 (08:05→20:08)
[2025-09-22] MEDS: ZOFRAN 4 MG IV (08:05)
[2025-09-22] MEDS: HEPARIN SC (08:05)
[2025-09-22] MEDS: DECADRON 4 MG IV ×2 (08:05→20:08)
[2025-09-22] MEDS: MORPHINE SULFATE 2 MG IV ×2 (08:15→20:04)
[2025-09-22 08:24] LABS: ALT (SGPT) 48 U/L (0-35); AST (SGOT) 49 U/L (14-36); Albumin 3.7 g/dl (3.5-5.0); Alkaline Phosphatase 119 U/L (38-126); Blood Urea Nitrogen 18 mg/dl (7-17); Calcium 10.0 mg/dl (8.4-10.2); Chloride 93 mmol/L (98-107); Estimated Creatinine Clearance 53 ml/min; Glucose 146 mg/dl (70-99); Potassium 4.1 mmol/L (3.5-5.1); Sodium 135 mmol/L (135-145); Total Protein 6.6 g/dl (6.3-8.2); eGFR > 60.00
--- NOTE | 2025-09-22 09:03 | W.PN.HOSP.TC ---
Today's Communication/Plan
-
TTE today
follow up procal
possible DC later today or tomorrow
Assessment / Plan
Assessment / Plan
CXR: No acute cardiopulmonary process. Hyperinflation.
Acute on chronic hypoxic respiratory failure
COPD exacerbation
Former Tobacco use
- patient with shortness of breath on exertion
- she has known severe COPD
- Admitted to telemetry
- Consult pulmonary
- continue dupilumab out patient
- continue montelukast
- IV dexamethasone 4mg q12 --> transition to prednisone taper on DC
- Xopenex nebs TID and PRN
- flu and covid negative
- follow up procal; if negative will stop antibiotics
- GOC discussion had with daughter who feels palliative care services are good for now; we discussed she may be approaching hospice
#elevated troponin 2/2 NSTEMI vs NIMI
Sinus Tachycardia
Hx ASA allergy
trop 0.108
- appreciate Cardiology consult
- TTE ordered for today
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
Chronic Ventral Hernia with Bowel
Chronic abdominal pain
Transaminitis
-per daughter, patient is not a surgical candidate. She was transferred to [facility] February of this year
- she is on morphine for pain at home, daughter was concerned she took too much. I have re-ordered at lower dosing
- statin on hold
#Primary hypertension
- continue nifedipine
#Hyperlipidemia
- hold rosuvastatin 2/2 transaminitis
#Severe esophagitis
- continue dexlansoprazole
#Severe anxiety
- continue alprazolam, bupropion and Trintellix
#Sinus tachycardia
- continue ivabradine
Code status: full code
DVT prophylaxis: Lovenox Sq
51 minutes spent on patient care
Anticipated Discharge: Within 24 hours
Subjective/Interval History
-
Date of Service: September 22, 2025
patient received low dose morphine this morning and is overall feeling better
asking about breakfast and going home
Objective Data
-
Labs:
Laboratory Results
09/22/25
06:12
WBC 11.2 H
Hgb 10.6 L
Hct 34.3 L
Plt Count 346
Sodium 135
Potassium 4.1
Chloride 93 L
Carbon Dioxide Pending
BUN 18 H
Creatinine 0.4 L
Glucose 146 H
Calcium 10.0
Total Bilirubin 0.6
AST 49 H
ALT 48 H
Alkaline Phosphatase 119
Vital Signs:
Vital Signs
Temp Pulse Resp BP Pulse Ox
98.4 F 82 24 144/79 97
09/22/25 07:00 09/22/25 08:03 09/22/25 07:14 09/22/25 08:04 09/22/25 07:14
I&O
09/21/25 09/22/25 09/23/25
06:59 06:59 06:59
Intake Total 380 / 380 540 / 540
Balance 380 / 380 540 / 540
Review of Systems
-
History Source: Patient
All other systems: Reviewed and negative
Physical Exam
-
General: No Apparent Distress and Other (frail appearing)
HEENT: PERRLA
Respiratory: Wheezes (end expiratory )
Cardiac: Regular Rhythm and S1/S2
GI: Other (large ventral hernia, soft but tender on palpation )
Musculoskeletal: No Edema
Neuro: AO x 3
Psych: Calm
Data Reviewed
-
Diagnostic Radiology: Report Reviewed by me
Labs: Labs Reviewed by me
--- NOTE | 2025-09-22 09:23 | W.PN.PUL3 ---
Today's Communication / Plan
-
Remains stable, no new complaints
Appetite remains poor, nonsurgical candidate, BMI 15--consider hospice discussions, she is enrolled in [facility] Pall [facility]
No new recs from our standpoint, eval for d/c planning per team
We will sign off at this time, pls call with questions
Assessment
-
Patient is a 70-year-old female with previous history of severe COPD, hernia, severe protein calorie malnutrition, presenting with exertional dyspnea with decreased p.o. intake, heartburn, headache, diaphoresis. She normally uses 3 L at home as
baseline she is currently on baseline oxygen usage. She is noted to be on palliative care at home, on p.o. morphine. She denies any pain at this time, does admit to decreased p.o. intake, appetite. She has had prior frequent admissions for
similar.
Acute on chronic SOB
Chronic large supraumbilical and umbilical hernia
Leukocytosis
Troponin elevation
Mildly elevated BNP, 1610, prior 50-100
Severe protein calorie malnutrition, Underweight BMI 15
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
Adm [facility] 04-03 to : AECOPD, RLL pneumonia
[facility] admission (02-04 to ): respiratory failure requiring intubation at ER, extubated 02-05
Upper GI bleed/Prior history of gastric ulcers in 2022
Chronic hypoxemic and hypercapnic respiratory failure
Apparently uses CPAP at night/Has refused trilogy in the past per records.
Advanced COPD, O2 dependent
On chronic low dose prednisone at 5 mg qd
COPD-follows up with [facility] pulmonology.
On Spiriva/Advair/low-dose prednisone
Chronic anemia-normocytic. Possibly from chronic disease.
Former Smoker (Quit 1-2 years ago. > 40 pack years total use)
Anxiety/Depression/Insomnia
History of Breast Cancer s/p Lumpectomy, Chemo and XRT
Large Ventral Hernia
MRSA screening + 02/05/2023
Mild PH
Hypertension and hyperlipidemia
Diabetes mellitus
Hypothyroidism
Plan
Currently saturating over 90% on 3 L, she is on her baseline O2 usage at this time
Prior history of lung disease is noted including severe COPD, and stage--she follows at [facility]
She is maintained on chronic prednisone
Suspect patient has acute on chronic shortness of breath due to severe COPD, untreated hernia
CXR/CT obtained indicating no acute process, unchanged from prior--she does have significant hyperinflation
Other imaging reviewed--ongoing ventral hernia, she was told she is not an operable candidate due to her severe COPD
Prior ECHO results are reviewed indicating preserved function, she does have mild pulmonary hypertension
proBNP mildly elevated on this admission 1610, compared to prior baseline 50�100
May consider additional diuresis
She has severe protein calorie malnutrition, BMI is 15
She endorses decreased p.o. intake and appetite likely due to her hernia
Overall shelter prognosis is poor given inoperable ventral mass contributing to malnutrition/weight loss, SOB/deconditioning
On top of severe COPD/end stage as noted in her record, she has multiple readmissions in the past 3 years
O2 dependant, chronic hypercarbia not on PAP
On outpatient palliative care on PO morphine--hospice was discussed per notes
I would consider hospice discussions as she has no meaningful chance for recovery given her multiple severe untreatable conditions
She remains full code
Discharge planning per team
Diagnostic Data
CXR 09/20/25: No acute cardiopulmonary process. Hyperinflation.
CXR 02/2025: Findings suggesting a new mild left upper lobe pneumonia. Repeat exam in 2 weeks following treatment recommended to exclude an underlying mass. Clinical and laboratory correlation recommended as well.
CXR PA/lat 05-30-23 c/w below. No pulm infiltrates
CXR 04-06-23 c/w January. Baseline portable film with no infiltrates. Latest film wit interim improvement in patchy infiltrates/^lung water content
ECHO 08/2024: Normal biventricular size and systolic function without regional wall motion abnormality. Estimated LVEF 55-60%. Aortic sclerosis without stenosis. Mild/moderate tricuspid regurgitation. Normal PASP. Compared to 02/06/23: TR has
improved from moderate to mild/moderate. PASP has decreased from 45 mmHg to 36 mmHg.
TTE 02-06-23 CONCLUSIONS: Normal left ventricular size (visually, pLAX views limit accurate measurement), wall thickness and systolic function. LV ejection fraction is 63% by volumetric assessment.
Dilated right ventricle with normal systolic function. No significant valvular disease. Mild pulmonary hypertension. No prior study available for comparison.
CT Chest 01/2023: No findings to confirm central pulmonary embolism. Findings compatible with centrilobular type emphysema as well as some likely bilateral chronic interstitial changes. No pneumothorax or pleural effusion.
CT abd/p 04-07-23 IMPRESSION: Changes of emphysema within the visualized lower lungs. Bronchial wall thickening in the right lower lung which is likely from chronic bronchitis. Linear densities within the anterior and inferior aspect of the right
lower lobe of the lung, which is likely scarring. Small to moderate central hiatal hernia. There is a large hernia in the midline anterior abdominal wall, increased in size compared to most recent examination of February 06, 2023. This hernia now
contains a portion of colon which is new from most recent examination, but colon was also was present herniating through this defect on CT examination of September 16, 2022. There is no CT evidence to suggest strangulation or bowel obstruction. Ovoid
mass in the left posterolateral pelvis without significant interval change dating back to CT examination of September 16, 2022, suggesting that this is likely a benign pelvic mass originating from the left ovary.
Reports and relevant images were personally reviewed.
Total time spent on this consultation __40__ minutes which includes review of history, physical exam, medications, laboratory data, personal review of imaging, extensive review of outpatient records, discussion with care team and respiratory therapy.
Subjective Data
-
Date of Service:
Date of Service: September 22, 2025
Chief Complaint: Pulmonary Follow Up
Subjective:
No new complaints, stable from prior
Minimal appetite
Objective Data
Data Reviewed
Vital Signs / I&O / Oxygen:
Vital Signs
Temp Pulse Resp BP Pulse Ox
98.4 F 82 24 144/79 97
09/22/25 07:00 09/22/25 08:03 09/22/25 07:14 09/22/25 08:04 09/22/25 07:14
Intake and Output
09/21/25 09/22/25 09/23/25
06:59 06:59 06:59
Intake Total 380 / 380 540 / 540
Balance 380 / 380 540 / 540
SaO2 97
Nasal Cannula flow liters per 3
minute
Physical Exam
General: Comfortable, Poor Appetite and Other (NAD)
HEENT: Normocephalic, Anicteric and Moist Mucous Membranes
Cardiovascular: S1-S2 and Regular Rhythm
Respiratory: Clear and Non-Labored Respirations
GI: Soft, Distended and Organomegaly
Neurology: Awake, Alert, Oriented and No Motor Deficits
Skin: Warm, Dry and Good Color
Labs/Micro/Reports
Lab Data
09/22/25 06:12
09/22/25 06:12
Laboratory Results
09/21/25
12:00
pH 7.48 H
pCO2 56 H
pO2 93
HCO3 41.7 H*
O2 Delivery Level
Microbiology
09/20/25 17:17 Blood/Venous Blood Culture - Preliminary
No Growth in 24 hours- Final report to follow
09/20/25 17:17 Blood/Venous Blood Culture - Preliminary
No Growth in 24 hours- Final report to follow
09/20/25 22:04 Nasal Swab Influenza Types A & B (ROSANA) - Final
Negative for Influenza A & B, NAAT
Negative results must be combined with clinical observations
and patient history.
Nucleic Acid Amplification test (NAAT)performed on the
[employer] platform.
[2025-09-22 09:26] LABS: Carbon Dioxide 38 mmol/L (22-30)
[2025-09-22 10:21] LABS: Procalcitonin 0.71 ng/ml (0.0-0.25)
[2025-09-22] MEDS: VENTOLIN NEBULES INH (14:24)
--- NOTE | 2025-09-22 14:47 | CM ---
Patient seen at bedside on . Patient stated that she is requesting [facility] when medically appropriate for discharge. patient also will need Walker and Comode scripts when medically appropriate for discharge per Therapy. Patient will need to be
assisted when walking per therapy recommendations. CM will call to request scripts for DME from physician. Patient referral to [facility] also updated liaison with [facility]. CM will continue to follow for discharge planning needs.
Plan; home with [facility]; pending acceptance and DME; walker, comode; Palliative Care following.
--- NOTE | 2025-09-22 15:34 | VNURNOTE ---
Home Health Liaison met with patient at bedside to discuss [facility] nurse/therapy, visits, schedule and homebound status. Patient is agreeable and understands that visits at home will be 2-3 x per week to assess and teach medical management.
Patient is aware that [facility] will contact them for start of care within a week after discharge from . Provided contact number for [facility].
PM [facility] referral completed in [facility] Port.
[2025-09-22] MEDS: ROCEPHIN 1000 MG IV (17:30)
[2025-09-22] MEDS: HEPARIN 5000 UNITS SC (20:06)
[2025-09-22] MEDS: SINGULAIR 10 MG PO (21:54)
[2025-09-23] MEDS: MORPHINE SULFATE 2 MG IV ×2 (00:21→15:12)
[2025-09-23 02:55] VITALS: BP 131/80
[2025-09-23 07:00] VITALS: BP 155/90
--- NOTE | 2025-09-23 07:18 | W.DCSUMMARY ---
Discharge Summary
Discharge Data
Date of Admission: 09/20/25
Date of Discharge: 09/23/25
-
Pending Results: No
Hospital Course
Discharging Physician : Dr. Kalina Ocampo
Disposition : Home with Home Health
Principal Discharge diagnosis : Acute COPD Exacerbation, chronic ventral hernia with chronic pain
Hospital Course :
Ms. Danielle Nuñez is a 70 yo woman with hx COPD with chronic hypoxic respiratory failure on 3L, essential HTN, HLD, hypothyroidism, anxiety who presents to the ER for evaluation of shortness of breath. Further history from daughter also
reports confusion in setting of receiving more morphine than usual (which is prescribed at home under palliative care).
Triage vitals significant for tachycardia, hypertension, SpO2 88%. She was given supplemental oxygen, started on standing nebulizers, antibiotics, and steroids. She was admitted to medicine with Pulmonary consulting. She improved over the next
couple of days and is back on her home oxygen. She is discharged on 2 more days of antibiotics and Prednisone taper down to home dosing Prednisone 5mg PO twice a day.
Patient initially complained of chest discomfort with mildly elevated Troponin. TTE performed without significant change or wall motion abnormality. She was seen by Cardiology.
Patient intermittently complained of abdominal pain from her known large ventral hernia which is chronic mildly incarcerated but non-strangulated. She was evaluated at [facility] earlier this year and deemed not to be a surgical candidate. She was
evaluated by surgery this admission who recommends continued use of abdominal binder. She had a normal BM while in-house.
She had mild transaminitis on admission which resolved, OK to resume statin on discharge.
Given chronic pain from large ventral hernia that is inoperable and severe lung disease with weight loss, goals of care discussions had with patient's daughter. She is comfortable continuing palliative care for now.
Patient is discharged with home health and continued palliative care services.
Time spent on discharge was 45 minutes.
Important imaging findings :
CXR
IMPRESSION:
No acute cardiopulmonary process. Hyperinflation.
Abdomen X-Ray
IMPRESSION: Rounded opacity projecting over the lower abdomen upper pelvis, which likely corresponds to known ventral hernia.
No radiographic evidence for obstruction or free intraperitoneal air.
TTE 09/22/25
SUMMARY
1. Normal biventricular size and function without wall motion abnormalities.
2. LVEF is 60-65% by visual estimation. Normal diastolic function.
3. Moderate tricuspid regurgitation. Top normal estimated PASP at 39 mmHg.
4. Compared to prior from September 15, 2024, TR is now moderate, previously mild to moderate.
Procedure findings :
Discharge Plan
-
Patient Disposition: Home with Home Care
Discharge Diagnosis/Procedures: Acute COPD exacerbation, chronic pain from ventral hernia, medication side effect with morphine
Diet: Regular
Activity: As tolerated
Driving Restrictions: No driving
Bathing Restrictions: None
Referrals:
NONE,* [Family Provider, Internal Medicine]
Additional Discharge Medication Instructions: You have 2 more days of antibiotics
Complete steroid course as prescribed. Take 40mg x 2 more days then 30mg x 3 days; 20mg x 3 days; 10mg x 3 days then resume prior dosing: Prednisone 5mg twice a day
I recommend decreasing Morphine dosing from 10mg to 5mg to avoid confusion. If you have continued pain then speak with your palliative care team, and this dose should be increased again.
I recommend decreasing Ambien dosing to 10mg (you did not receive here in the hospital).
Follow up with your outpatient Rail Manager
Prescriptions:
New
cefdinir 300 mg Capsule
300 mg PO Q12 Qty: 4 0RF
prednisone 10 mg tablet
10 mg PO DIRECTED Qty: 26 0RF
Rx Instructions:
40mg(4 TABS) x 2 days; 30mg(3 TABS) x 3 days; 20mg(2 TABS) x 3 days; 10mg(1 TAB) x 3 days then resume prior dosing
Continued
ivabradine [Corlanor] 5 mg Tablet
5 mg PO BID
Linzess 145 mcg Capsule
145 mcg PO DAILY
Trintellix 20 mg Tablet
20 mg PO DAILY
fluticasone propion-salmeterol [Advair Diskus] 250-50 mcg/dose blister with device
1 inh INHALATION R BID
rosuvastatin 5 mg tablet
5 mg PO HS
bupropion HCl 300 mg tablet extended release 24 hr
300 mg PO DAILY
levocetirizine 5 mg tablet
5 mg PO DAILYPRN PRN (Reason: allergies)
dexlansoprazole 60 mg capsule,biphase delayed releas
60 mg PO DAILY
nifedipine 30 mg tablet extended release
30 mg PO DAILY Qty: 30 0RF
sennosides [senna] 8.6 mg Tablet
8.6 mg PO HSPRN PRN (Reason: Constipation)
alprazolam 2 mg tablet
2 mg PO QIDPRN PRN (Reason: anxiety)
therapeutic multivitamin Tablet
1 tab PO DAILY
montelukast 10 mg Tablet
10 mg PO HS
Spiriva Respimat 2.5 mcg/actuation mist
1 inh INHALATION R DAILY
docusate sodium 100 mg capsule
100 mg PO HSPRN PRN (Reason: Constipation)
lactulose 10 gram/15 mL Solution
10 g PO DAILYPRN PRN (Reason: constipation)
Dupixent Pen 300 mg/2 mL Pen Injector
300 mg SC Q2W
Rx Instructions:
every other sunday
ondansetron 8 mg Tablet,Disintegrating
8 mg PO [id number] PRN (Reason: nausea)
ibuprofen [Advil] 200 mg Tablet
400 mg PO Q8HPRN PRN (Reason: mild pain)
levalbuterol tartrate [Xopenex HFA] 45 mcg/actuation HFA aerosol inhaler
2 inh inhalation R Q6HPRN PRN (Reason: shortness of breath or wheezing)
Changed
zolpidem [Ambien CR] 12.5 mg Tablet,Ext Release Multiphase
10 mg PO HSPRN PRN (Reason: sleep) Qty: 0 0RF
morphine concentrate 20 mg/mL Syringe
5 mg SUBLINGUAL Q4HPRN PRN (Reason: severe pain) Qty: 0 0RF
Held
prednisone 5 mg tablet
5 mg PO BID
Hold Instructions: Resume on 10/05/25. resume after steroid taper
Discharge Orders:
Discharge Patient (As Directed); Ordered 09/23/25
Ordered By: Kalina Ocampo
Discharge Date and Time
Print Language: [id number]
[2025-09-23] MEDS: ADVAIR HFA 115/21 MCG INHALER 2 PUFF INH (07:24)
[2025-09-23 07:25] LABS: Hematocrit 33.0 % (37.0-47.0); Hemoglobin 10.3 g/dL (12.0-16.0); Mean Corp Hgb Conc. 31.2 g/dL (33.0-37.0); Mean Corpuscular Volume 85.7 fL (81.0-99.0); Platelet Count 332 10^3/uL (130-400); Red Cell Dist. Width 15.7 % (11.5-14.5)
[2025-09-23] MEDS: SPIRIVA RESPIMAT 2.5 MCG 1 PUFF INH (07:25)
[2025-09-23] MEDS: VENTOLIN NEBULES INH (07:25)
--- NOTE | 2025-09-23 08:04 | W.PN.HOSP.TC ---
Today's Communication/Plan
-
plan for discharge home today
Assessment / Plan
Assessment / Plan
CXR: No acute cardiopulmonary process. Hyperinflation.
Acute on chronic hypoxic respiratory failure
COPD exacerbation
Former Tobacco use
- patient with shortness of breath on exertion
- she has known severe COPD
- Admitted to telemetry
- Consult pulmonary
- continue dupilumab out patient
- continue montelukast
- DC on prednisone course down to home prednisone dosing
- procal mildly elevated, continue 2 more days antibiotics
- flu and covid negative
- GOC discussion had with daughter who feels palliative care services are good for now; we discussed she may be approaching hospice
#elevated troponin 2/2 NSTEMI vs NIMI
Sinus Tachycardia
Hx ASA allergy
trop 0.108
- appreciate Cardiology consult
- s/p TTE without new WMA
- EQUAL OPPORTUNITY REPRESENTATIVE Corlanor (brought in by daughter)
Chronic Ventral Hernia with Bowel
Chronic abdominal pain
Transaminitis
-per daughter, patient is not a surgical candidate. She was transferred to [facility] February of this year
- she is on morphine for pain at home, daughter was concerned she took too much. I have re-ordered at lower dosing - patient tolerating and feels comfortable this morning
-appreciate GS input - ventral hernia known chronically incarcerated but non-strangulated, no acute need for surgical intervention
Chronic constipation
-patient had a BM in the hospital, continue home laxatives at discharge
#Primary hypertension
- continue nifedipine
#Hyperlipidemia
- hold rosuvastatin 2/2 transaminitis
-transaminitis likely in setting of infection; resolving - OK to resume statin on DC
#Severe esophagitis
- continue dexlansoprazole
#Severe anxiety
- continue alprazolam, bupropion and Trintellix
#Sinus tachycardia
- continue ivabradine
Code status: full code
DVT prophylaxis: Lovenox Sq
51 minutes spent on patient care
Anticipated Discharge: Today
Subjective/Interval History
-
Date of Service: September 23, 2025
feeling well
minimal pain
hoping to come home
Objective Data
-
Labs:
Laboratory Results
09/23/25
07:07
WBC 9.8
Hgb 10.3 L
Hct 33.0 L
Plt Count 332
Sodium Pending
Potassium Pending
Chloride Pending
Carbon Dioxide Pending
BUN Pending
Creatinine Pending
Glucose Pending
Calcium Pending
Total Bilirubin Pending
AST Pending
ALT Pending
Alkaline Phosphatase Pending
Vital Signs:
Vital Signs
Temp Pulse Resp BP Pulse Ox
99.3 F 82 20 131/80 100
09/23/25 02:55 09/23/25 07:29 09/23/25 07:29 09/23/25 02:55 09/23/25 07:29
I&O
09/22/25 09/23/25 09/24/25
06:59 06:59 06:59
Intake Total 540 / 540 1140 / 1140
Balance 540 / 540 1140 / 1140
Review of Systems
-
History Source: Patient
All other systems: Reviewed and negative
Physical Exam
-
General: No Apparent Distress and Other (frail appearing)
HEENT: PERRLA
Respiratory: Wheezes (end expiratory )
Cardiac: Regular Rhythm and S1/S2
GI: Other (large ventral hernia, soft but tender on palpation )
Musculoskeletal: No Edema
Neuro: AO x 3
Psych: Calm
Data Reviewed
-
Diagnostic Radiology: Report Reviewed by me
Labs: Labs Reviewed by me
[2025-09-23 08:23] LABS: ALT (SGPT) 46 U/L (0-35); AST (SGOT) 36 U/L (14-36); Albumin 3.8 g/dl (3.5-5.0); Alkaline Phosphatase 109 U/L (38-126); Blood Urea Nitrogen 17 mg/dl (7-17); Calcium 10.1 mg/dl (8.4-10.2); Carbon Dioxide 37 mmol/L (22-30); Chloride 92 mmol/L (98-107); Estimated Creatinine Clearance 53 ml/min; Glucose 125 mg/dl (70-99); Potassium 4.2 mmol/L (3.5-5.1); Sodium 133 mmol/L (135-145); Total Protein 6.7 g/dl (6.3-8.2); eGFR > 60.00
--- NOTE | 2025-09-23 09:26 | W.DS.TRANS ---
DC Summary - [employer]
-
Discharge Instructions:
Discharge Diagnosis/Procedures Acute COPD exacerbation, chronic pain from
ventral hernia, medication side effect with
morphine
Diet Regular
Activity As tolerated
Driving Restrictions No driving
Bathing Restrictions None
Instructions:
Stand-Alone Forms:
Changes to Home Medications: Yes
Discharge Medications:
DC Medications w/original date entered in [employer]
bupropion HCl 300 mg 24 hr tablet, extended release 300 mg PO DAILY Mental Health/Anxiety 02/04/23
dexlansoprazole 60 mg capsule,biphase delayed release 60 mg PO DAILY Gastrointestinal issue 02/04/23
fluticasone 250 mcg-salmeterol 50 mcg/dose blistr powdr for inhalation (Advair Diskus) 1 inh inhalation R BID Lung/breathing issues 02/04/23
ivabradine 5 mg tablet (Corlanor) 5 mg PO BID Heart disease/condition 02/04/23
levocetirizine 5 mg tablet 5 mg PO DAILYPRN PRN allergies 02/04/23
linaclotide 145 mcg capsule (Linzess) 145 mcg PO DAILY Constipation 02/04/23
rosuvastatin 5 mg tablet 5 mg PO HS High cholesterol 02/04/23
vortioxetine 20 mg tablet (Trintellix) 20 mg PO DAILY Mental Health/Anxiety 02/04/23
nifedipine 30 mg tablet,extended release 30 mg PO DAILY #30 tabs 02/12/23
sennosides 8.6 mg tablet (senna) 8.6 mg PO HSPRN PRN Constipation 05/31/23
alprazolam 2 mg tablet 2 mg PO QIDPRN PRN anxiety 02/01/24
docusate sodium 100 mg capsule 100 mg PO HSPRN PRN Constipation 09/12/24
montelukast 10 mg tablet 10 mg PO HS Lung/Breathing Issues 09/12/24
therapeutic multivitamin 1 tab PO DAILY Supplement 09/12/24
tiotropium bromide 2.5 mcg/actuation mist for inhalation (Spiriva Respimat) 1 inh inhalation R DAILY Lung/Breathing Issues 09/12/24
dupilumab 300 mg/2 mL subcutaneous pen injector (Dupixent) 300 mg SC Q2W Lung/Breathing Issues 03/06/25
lactulose 10 gram/15 mL oral solution 10 g PO DAILYPRN PRN constipation 03/06/25
prednisone 5 mg tablet 5 mg PO BID Lung/Breathing Issues 03/06/25
Held on 09/23/25. Instructions: Resume on 10/05/25. resume after steroid taper
ibuprofen 200 mg tablet (Advil) 400 mg PO Q8HPRN PRN mild pain 09/20/25
levalbuterol tartrate 45 mcg/actuation aerosol inhaler (Xopenex HFA) 2 inh inhalation R Q6HPRN PRN shortness of breath or wheezing 09/20/25
ondansetron 8 mg disintegrating tablet 8 mg PO [id number] PRN nausea 09/20/25
cefdinir 300 mg capsule 300 mg PO Q12 #4 caps 09/23/25
morphine concentrate 20 mg/mL oral syringe (FOR ORAL USE ONLY) 5 mg (0.25 mL) sublingual Q4HPRN PRN severe pain #0 mL 09/23/25
prednisone 10 mg tablet 10 mg PO DIRECTED #26 tabs 09/23/25
zolpidem 12.5 mg tablet,extended release,multiphase (Ambien CR) 10 mg (0.8 x 12.5 mg) PO HSPRN PRN sleep #0 tabs 09/23/25
Home Medication Changes
2 more days Cefdinir
Steroid taper down to home dosing
Decrease morphine dosing
Decrease PRN Ambien dosing
Pending Results: No
[2025-09-23] MEDS: PROCARDIA XL (EXTENDED RELEASE) 30 MG PO (09:50)
[2025-09-23] MEDS: DELTASONE 40 MG PO (09:51)
[2025-09-23] MEDS: HEPARIN 5000 UNITS SC (09:51)
[2025-09-23] MEDS: WELLBUTRIN XL (24 hour extended release) 300 MG PO (09:51)
[2025-09-23] MEDS: PROTONIX 40 MG PO (09:51)
[2025-09-23] MEDS: NON-FORMULARY ITEM 5 MG PO (09:54)
[2025-09-23] MEDS: NON-FORMULARY ITEM 20 MG PO (09:54)
--- NOTE | 2025-09-23 10:30 | CM ---
CM following re: discharge planning.
Reviewed pt's chart, met with pt.
Discharge order noted. Pt is aware, expressed her agreement and she stated her daughter is coming to transport her home.
IMM reviewed, paced on chart, pt has a copy.
Pt stated she is aware that [facility] will provide [facility] services upon the discharge.
Please fax discharge instructions to [facility] [phone].
D/ plan: home with [facility] and family support. Daughter to transport.
[2025-09-23 12:53] VITALS: BP 136/76
[2025-09-23] MEDS: VENTOLIN NEBULES 2.5 MG INH (13:08)
== END 2025-09-23 16:05 | disposition home health service (06) | DRG 190 ==
LOC: 2 NORTH 22:22
PROVIDERS: Nurse Practitioner Family; ADMITTING PHYSICIAN Internal Medicine; ATTENDING PHYSICIAN Student in an Organized Health Care Education/Training Program; CONSULT PHYSICIAN Internal Medicine Cardiovascular Disease; CONSULT PHYSICIAN Surgery; EMERGENCY PHYSICIAN Emergency Medicine; OTHER PHYSICIAN Internal Medicine
DX: J44.1 Chronic obstructive pulmonary disease with (acute) exacerbation (principal); E43 Unspecified severe protein-calorie malnutrition; J96.21 Acute and chronic respiratory failure with hypoxia; Z68.1 Body mass index [BMI] 19.9 or less, adult; I5A Non-ischemic myocardial injury (non-traumatic); K43.6 Other and unspecified ventral hernia with obstruction, without gangrene; R64 Cachexia; F11.20 Opioid dependence, uncomplicated; D72.829 Elevated white blood cell count, unspecified; G89.29 Other chronic pain; I10 Essential (primary) hypertension; E03.9 Hypothyroidism, unspecified; I25.10 Atherosclerotic heart disease of native coronary artery without angina pectoris; R74.01 Elevation of levels of liver transaminase levels; E11.9 Type 2 diabetes mellitus without complications; K20.90 Esophagitis, unspecified without bleeding; F41.9 Anxiety disorder, unspecified; R00.0 Tachycardia, unspecified; F32.A Depression, unspecified; D64.9 Anemia, unspecified; I27.20 Pulmonary hypertension, unspecified; K59.09 Other constipation; E11.65 Type 2 diabetes mellitus with hyperglycemia; Z11.52 Encounter for screening for COVID-19; Z79.899 Other long term (current) drug therapy; Z79.51 Long term (current) use of inhaled steroids; Z79.52 Long term (current) use of systemic steroids; Z85.3 Personal history of malignant neoplasm of breast; Z87.891 Personal history of nicotine dependence; Z92.21 Personal history of antineoplastic chemotherapy; Z92.3 Personal history of irradiation; Z99.81 Dependence on supplemental oxygen
CPT/HCPCS: 36600; 71045; 74019; 80053; 80061; 82805; 83036; 83605; 83880; 84145; 84484; 85025; 85027; 87040; 87502; 87811; 93005; 93306; 94640; 96374; 96375; 97163; 97167; 99291

== ENCOUNTER 2025-10-03 13:19 | Emergency (ER) | payer MEDICARE, SELFPAY ==
[2025-10-03 13:26] VITALS: BP 140/85
[2025-10-03 13:50] VITALS: BMI 18.2
[2025-10-03 14:06] VITALS: BP 119/71
[2025-10-03 14:28] LABS: Hematocrit 37.4 % (37.0-47.0); Hemoglobin 11.1 g/dL (12.0-16.0); Mean Corp Hgb Conc. 29.7 g/dL (33.0-37.0); Mean Corpuscular Volume 89.9 fL (81.0-99.0); Platelet Count 290 10^3/uL (130-400); Red Cell Dist. Width 16.0 % (11.5-14.5)
[2025-10-03 14:30] LABS: ALT (SGPT) 20 U/L (0-35); AST (SGOT) 22 U/L (14-36); Albumin 3.8 g/dl (3.5-5.0); Alkaline Phosphatase 85 U/L (38-126); Blood Urea Nitrogen 8 mg/dl (7-17); Calcium 9.2 mg/dl (8.4-10.2); Carbon Dioxide 36 mmol/L (22-30); Chloride 91 mmol/L (98-107); Estimated Creatinine Clearance 62 ml/min; Glucose 134 mg/dl (70-99); Potassium 4.0 mmol/L (3.5-5.1); Sodium 130 mmol/L (135-145); Total Protein 6.4 g/dl (6.3-8.2); eGFR > 60.00
--- NOTE | 2025-10-03 14:43 | ED.GENMED ---
History of Present Illness
General
Chief Complaint: Abdominal Pain
Time Seen by Provider: 10/03/25 14:10
History of Present Illness
History of Present Illness:
70-year-old female with history of COPD on 3 L O2 (for which she is on hospice), large chronic ventral hernia, hypertension, anxiety presenting to the emergency department for constipation and decreased intake. Patient arrives with daughter.
Patient currently lives in daughter's house, with visiting nurses. Patient has not had a bowel movement in the past 6 days and her hernia feels increasingly firm and distended. No report of any vomiting. Patient has had overall decreased p.o.
intake. Has been taking morphine for pain, given under supervision of hospice, and daughter notes that that often makes her more confused. Patient denies any increased dyspnea. Denies chest pain. No report of any fevers. Daughter was also
concerned for new bedsores. Denies any known surgical history, however regarding her hernia, was deemed not a surgical candidate given her comorbidities. No additional history obtained at this time
Past History
Past History
ED Past Medical History: Asthma, Cancer (Remote history of breast cancer), COPD, NIDDM and Other (Chronic abdominal wall hernia, chronic abdominal pain, upper GI bleed January 2023, Chronic cough, Ulcers)
ED Past Surgical History: Cholecystectomy, Gynecological (Hysterectomy) and Other (left Lumpectomy)
Patient has exhibited threatening behavior?: No
PSI?: No
Social History
Tobacco: Former smoker
Alcohol: Occasional
Drug: None
Personal:
Living: with family
Employment: Retired
Family History
Family History: Other and Unable to obtain
Phy Exam
Physical Exam
Physical Exam:
General: Dry mucous
HEENT: protecting airway
Neck: appears supple
CV: Tachycardic, regular rhythm, no evidence of cyanosis
Resp: No accessory muscle use, no increased work of breathing, diminished air movement bilaterally with no chronic COPD
Abd: Large ventral hernia, firm on palpation, with difficulty reduces secondary to pain
Extremities: No deformities, no swelling
Neuro: alert, no focal neurologic deficit
: deferred
Rectal: deferred
Psych: Normal affect
Skin: Intact, no significant breakdown to the sacral region
Course
Orders/Labs/Results
Orders:
Orders
10/03/25 13:41
Electrocardiogram (*1) Urgent
Reason for Study: Tachycardia
EKG- Treatment ONCE
10/03/25 14:06
Complete Blood Count/With Diff Urgent
Comprehensive Metabolic Panel Urgent
Lactic Acid Urgent
10/03/25 14:35
CT Abd/pel Without Iv Or Oral Urgent
Comment:
Reason For Exam: large hernia, constipation
Stool Culture Urgent
JUANA Source: Feces/Stool
Specimen Description:
0.9% Sodium Chloride 1000 ml [Nss] 1,000 ml IV BOLUS
10/03/25 17:06
Straight cath- Treatment ONCE
Morphine Sulfate 2 mg IV NOW STA
10/03/25 17:27
Ondansetron Injectable [Zofran] 4 mg .ROUTE .STK-MED ONE
Ondansetron Injectable [Zofran] 4 mg IV NOW STA
10/03/25 17:41
Urinalysis Reflex To Culture Urgent
Date Specimen was Collected: 10/03/25
Time Specimen was Collected: 17:14
Urine Microscopic Reflex Cult Urgent
Abnormal Lab Results
10/03/25 12
14:06 17:41
WBC 41.1 H* 10^3/uL
(4.8-10.8)
RBC 4.16 L 10^6/uL
(4.20-5.40)
Hgb 11.1 L g/dL
(12.0-16.0)
MCH 26.7 L pg
(27.0-31.0)
MCHC 29.7 L g/dL
(33.0-37.0)
RDW 16.0 H %
(11.5-14.5)
Abs Immat Gran (auto) 0.5 H 10^3/uL
(0-0.05)
Absolute Neuts (auto) 36.8 H 10^3/uL
(1.4-6.5)
Absolute Monos (auto) 1.9 H 10^3/uL
(0.1-0.6)
Immature Gran % 1.2 H %
(0-0.5)
Neutrophils % 89.6 H %
(42.2-75.2)
Lymphocytes % 4.3 L %
(20.5-51.1)
Sodium 130 L mmol/L
(135-145)
Chloride 91 L mmol/L
(98-107)
Carbon Dioxide 36 H mmol/L
(22-30)
Creatinine 0.5 L mg/dL
(0.6-1.0)
Glucose 134 H mg/dl
(70-99)
Ur Occult Blood Reflex 1+ A
(Negative)
Urine RBC 7-10 A /HPF
(0-2)
Urine Albumin (Reflex) 2+ A
(Neg - Trace)
10/03/25 14:06
10/03/25 14:06
Vital Signs
Initial and Last Documented VS:
Initial Vital Signs
Temp Pulse Resp BP Pulse Ox
98.8 F 135 20 140/85 89
10/03/25 13:26 10/03/25 13:26 10/03/25 13:26 10/03/25 13:26 10/03/25 13:26
Last Documented Vital Signs
Temp Pulse Resp BP Pulse Ox
98.9 F 124 23 135/82 98
10/03/25 15:02 10/03/25 18:00 10/03/25 18:00 10/03/25 18:00 10/03/25 18:00
MDM/Problems Addressed
MDM/Problems Addressed:
70-year-old female with history of COPD on 3 L O2 (for which she is on hospice), large chronic ventral hernia, hypertension, anxiety presenting for constipation and decreased p.o. intake. Vital signs on arrival are significant for tachycardia,
however daughter does note that she is chronically tachycardic.
On exam, patient is resting comfortably, no acute respiratory distress. Does appear dry with dry mucous membranes. Abdomen with large ventral hernia, very firm on palpation with generalized tenderness. Concern for obstruction versus constipation.
No report of any vomiting. Also suspect concomitant dehydration, likely contributing to acute on chronic tachycardia. Plan for laboratory analysis, CT imaging, saline.
14:40 - Patient's white blood cell count is markedly elevated at 41. Will send lactic acid. Could be secondary to bowel ischemia. Again will obtain CT imaging.
17:00 - Lactate is normal. Patient does note that she has been on a steroid taper which could be contributing to the elevated WBC. Will straight catheter urine. CT stable appearance of patient's hernia with stool burden, no obstruction or
infection. Patient requesting her pain medications and will administer her morphine.
19:00 -urine without sign of infection. Patient remains stable, slightly tachycardic, however afebrile. She appears comfortable. Family is most concerned regarding the constipation. Again patient is not a candidate for any type of operative
management, is on a stool regimen at home. Will provide magnesium citrate, however advised using the medication gently given patient's comorbidities, as well as risk for dehydration. At this time feel stable for discharge and family and with
discharge home and outpatient supportive therapy. Return precautions discussed and family verbalized understanding
*Pulse Oximetry
SaO2: 98
Nasal Cannula flow liters per minute: 3.5
Patient hypoxic: no
*Critical Care Note
Total Time (30-74mins, 75-104mins- exclusive of procedures): Not Applicable
ED Attending Note
-
Portions of this chart may have been created with voice recognition software.� Occasional wrong word or��sound alike� substitutions may have occurred due to the inherent limitations of voice recognition software.
Discharge Plan
Departure
Prescriptions:
No Action
ivabradine [Corlanor] 5 mg Tablet
5 mg PO BID
Linzess 145 mcg Capsule
145 mcg PO DAILY
Trintellix 20 mg Tablet
20 mg PO DAILY
fluticasone propion-salmeterol [Advair Diskus] 250-50 mcg/dose blister with device
1 inh INHALATION R BID
rosuvastatin 5 mg tablet
5 mg PO HS
bupropion HCl 300 mg tablet extended release 24 hr
300 mg PO DAILY
levocetirizine 5 mg tablet
5 mg PO DAILYPRN PRN (Reason: allergies)
dexlansoprazole 60 mg capsule,biphase delayed releas
60 mg PO DAILY
nifedipine 30 mg tablet extended release
30 mg PO DAILY Qty: 30 0RF
sennosides [senna] 8.6 mg Tablet
8.6 mg PO HSPRN PRN (Reason: Constipation)
alprazolam 2 mg tablet
2 mg PO QIDPRN PRN (Reason: anxiety)
therapeutic multivitamin Tablet
1 tab PO DAILY
montelukast 10 mg Tablet
10 mg PO HS
Spiriva Respimat 2.5 mcg/actuation mist
1 inh INHALATION R DAILY
docusate sodium 100 mg capsule
100 mg PO HSPRN PRN (Reason: Constipation)
lactulose 10 gram/15 mL Solution
10 g PO DAILYPRN PRN (Reason: constipation)
Dupixent Pen 300 mg/2 mL Pen Injector
300 mg SC Q2W
Rx Instructions:
every other sunday
ondansetron 8 mg Tablet,Disintegrating
8 mg PO [id number] PRN (Reason: nausea)
ibuprofen [Advil] 200 mg Tablet
400 mg PO Q8HPRN PRN (Reason: mild pain)
levalbuterol tartrate [Xopenex HFA] 45 mcg/actuation HFA aerosol inhaler
2 inh inhalation R Q6HPRN PRN (Reason: shortness of breath or wheezing)
zolpidem [Ambien CR] 12.5 mg Tablet,Ext Release Multiphase
10 mg PO HSPRN PRN (Reason: sleep) Qty: 0 0RF
morphine concentrate 20 mg/mL Syringe
5 mg SUBLINGUAL Q4HPRN PRN (Reason: severe pain) Qty: 0 0RF
prednisone 5 mg Tablet
5 mg PO BID
Referrals:
UNKNOWN - PT DOES,NOT KNOW [Family Provider]
Interventions
Interventions:
*Risk Screen - Suicide Last Done: 10/03/25 14:10
*General Assessment Last Done: 10/03/25 14:10
*Neglect/Abuse Screening Last Done: 10/03/25 14:10
*ED COVID-19 Vaccine History Last Done: 10/03/25 14:10
*ED Influenza Vaccine History Last Done: 10/03/25 14:10
[facility] Fall Risk Assessment Tool Last Done: 10/03/25 17:14
[id number] Assessment Last Done: 10/03/25 15:01
Discharge Date and Time
Print Language: OCCITAN
[2025-10-03 15:27] LABS: Nucleated Red Blood Cells % 0 %
[2025-10-03 16:00] VITALS: BP 120/77
[2025-10-03] MEDS: NSS 1000 IV (16:49)
[2025-10-03 17:00] VITALS: BP 143/81
[2025-10-03] MEDS: MORPHINE SULFATE 2 MG IV (17:29)
[2025-10-03] MEDS: ZOFRAN 4 MG IV (17:29)
[2025-10-03 17:51] LABS: Urine Character Clear (Clear)
[2025-10-03 18:00] VITALS: BP 135/82
[2025-10-03 18:52] LABS: Urine White Cell 0-2 /HPF (0-5)
[2025-10-03] MEDS: CITROMA 300 ML PO (19:12)
== END 2025-10-03 19:39 | disposition home or self-care (01) ==
LOC: EMR 13:19
PROVIDERS: Emergency Medicine; EMERGENCY PHYSICIAN Student in an Organized Health Care Education/Training Program
DX: K59.00 Constipation, unspecified (principal); K43.9 Ventral hernia without obstruction or gangrene; E11.9 Type 2 diabetes mellitus without complications; I10 Essential (primary) hypertension; J44.89 Other specified chronic obstructive pulmonary disease; Z99.81 Dependence on supplemental oxygen; F41.9 Anxiety disorder, unspecified; Z79.84 Long term (current) use of oral hypoglycemic drugs; Z87.891 Personal history of nicotine dependence; Z85.3 Personal history of malignant neoplasm of breast
CPT/HCPCS: 99284; 96374; 96375; 96361; 51701; 74176; 80053; 81003; 81015; 83605; 85025; 93005

== ENCOUNTER 2025-10-06 14:17 | Inpatient (IN) | payer MEDICARE, SELFPAY ==
[2025-10-06] VITALS (11 sets, daily range): BP systolic 105–136; BP diastolic 61–78; BMI 15.9
--- NOTE | 2025-10-06 11:03 | ED.GENMED ---
History of Present Illness
General
Chief Complaint: Weakness
Source: patient, records and family
Time Seen by Provider: 10/06/25 10:49
History of Present Illness
History of Present Illness:
Chronically ill 70-year-old female with past medical history of COPD (3 to 4 L nasal cannula at baseline), previous breast cancer, zbe-jnktkad-uemwwthyp diabetes, known large nonoperable ventral hernia presenting to the ER via EMS from her son's
home where she lives for evaluation of severe abdominal pain and shortness of breath stating to me that the pain in her abdomen is what is causing her to feel short of breath. Son states that he brought the patient here on Sunday to the emergency
department for evaluation of diminished p.o. intake and generalized weakness that has only worsened since taking her home after evaluation in the ER. Patient son states that it is at the point where patient cannot tolerate any food or liquid at
home, due to the pain was unable to get the patient up on his own today which is not typical for the patient. No reported fevers or chills. Patient has been on an increased dose of morphine as part of her palliative care regimen and son notes that
patient has not had a bowel movement in a few days. Son also notes patient has what appears to be sacral/buttock wounds that he noticed over the last few days as well.
Past History
Past History
ED Past Medical History: Asthma, Cancer (Remote history of breast cancer), COPD, NIDDM and Other (Chronic abdominal wall hernia, chronic abdominal pain, upper GI bleed January 2023, Chronic cough, Ulcers)
ED Past Surgical History: Cholecystectomy, Gynecological (Hysterectomy) and Other (left Lumpectomy)
Patient has exhibited threatening behavior?: No
PSI?: No
Social History
Tobacco: Former smoker
Alcohol: Occasional
Drug: None
Personal:
Living: with family
Employment: Retired
Family History
Family History: Other and Unable to obtain
Review of Systems
Review of Systems
All Other Systems: ROS reviewed and negative except as documented in HPI and ROS
Phy Exam
Physical Exam
Physical Exam:
GENERAL: Alert , appears significantly older than stated age, chronically ill, very thin, appears in considerable pain
EYE: clear conjunctiva b/l
HEAD: NCAT
ENT: o/p clr, mmm.
CARDIAC: Re tachycardic rate and rhythm
LUNGS: Scattered wheeze and rhonchi throughout, tachypneic, 1 sentence dyspneic
ABDOMEN: Soft, very large ventral abdominal hernia, the more proximal portion of the hernia is soft and nontender, distalmost portion of the hernia is very hard to palpation and considerably tender with slight erythema overlying the skin, no r/g,
no cvat
NEUROLOGICAL: Alert and oriented
SKIN: Warm and dry, skin intact.
MUSCULOSKELETAL: well perfused.
PSYCH: Normal and appropriate interaction.
Scores
Heart Failure Risk
Heart Failure Risk Score: Not Applicable
Heart Score for Chest Pain Patients
STEMI patient?: Not applicable
Withdrawal Assessment of Alcohol
Withdrawal Assessment Completed?: Not applicable
Course
Orders/Labs/Results
Orders:
Orders
10/06/25 10:59
Electrocardiogram (*1) Urgent
Reason for Study: Tachycardia
EKG- Treatment ONCE
Morphine Sulfate 4 mg IV NOW STA
10/06/25 11:00
CR Chest Portable - 1 View Urgent
Comment:
Reason For Exam: SOB
Reason Study Needs to be Portable: Patient Unstable
10/06/25 11:16
Complete Blood Count/With Diff Urgent
Comprehensive Metabolic Panel Urgent
Lactic Acid Q4H
Comment: CANCEL 2nd LACTIC ACID IF 1st LACTIC ACID IS LESS THAN 2
Lipase Urgent
Magnesium Urgent
Troponin I Urgent
10/06/25 12:06
Lactic Acid Q4H
Comment: CANCEL 2nd LACTIC ACID IF 1st LACTIC ACID IS LESS THAN 2
Venous Blood Gas Urgent
10/06/25 12:31
CT Abd/pel Without Iv Or Oral Urgent
Comment:
Reason For Exam: possible stragulated hernia
10/06/25 12:38
0.9% Sodium Chloride 1000 ml [Nss] 1,000 ml IV BOLUS
Piperacillin/Tazo 3.375 Gram [Zosyn] 3.375 gram in 50 ml IV NOW
10/06/25 12:39
Urinalysis Reflex To Culture Urgent
10/06/25 12:40
HYDROmorphone [Dilaudid] 0.5 mg IV NOW STA
10/06/25 12:59
Mineral Oil Enema [Fleet Mineral Oil Enema] 133 ml RECTAL NOW STA
10/06/25 13:03
Magnesium Oxide 400 mg PO NOW STA
10/06/25 13:11
Admit/Transfer Patient As Directed
Co-Sign Provider:
Level of Care: Inpatient admission
Assign to:: Telemetry
Physician / Group: christopher berry
Diagnosis: abdominal pain
Reason for Telemetry: Arrhythmia
Date to Stop Telemetry: 10/09/25
Time to Stop Telemetry: 11:00
Reason for Hospitalization: abdominal pain
Expected length of stay greater than two midnights?: Yes
ELOS- Estimated Length of Stay in days: 3
I certify the patient meets the requirements for IP care: Yes
PRN Pain Medication Management As Directed
May give lesser potent ordered pain med per pt: Yes
preference::
Protocol:: Medication orders for pain may be administered in a
manner that supports deferring to patient preference
when the pt is:
- Requesting an ordered lesser potent pain medication.
Least to most potent pain medications are defined
as: acetaminophen < NSAID < tramadol < opioids
(morphine, oxycodone, hydromorphone).
- Requesting a lesser dose of the same medication IF
ORDERED.
- Requesting a less intrusive route of administration
if both routes are prescribed by the provider (PO <
IV).
10/06/25 13:13
Code Status As Directed
Resuscitation Status: Do not resuscitate
Reached after discussion with pt or family/Healthcare POA: Yes
DNR Bracelet Application ONCE
10/09/25 11:00
DC Protocol for Telemetry ONCE
Abnormal Lab Results
10/06/25 10/06/25
11:16 12:06
WBC 22.0 H 10^3/uL
(4.8-10.8)
RBC 4.12 L 10^6/uL
(4.20-5.40)
Hgb 11.0 L g/dL
(12.0-16.0)
MCH 26.7 L pg
(27.0-31.0)
MCHC 29.5 L g/dL
(33.0-37.0)
RDW 15.4 H %
(11.5-14.5)
Abs Immat Gran (auto) 0.1 H 10^3/uL
(0-0.05)
Absolute Neuts (auto) 18.5 H 10^3/uL
(1.4-6.5)
Absolute Monos (auto) 1.9 H 10^3/uL
(0.1-0.6)
Neutrophils % 84.1 H %
(42.2-75.2)
Lymphocytes % 6.7 L %
(20.5-51.1)
VBG pCO2 81 H* mmHg
(35-48)
VBG HCO3 45.8 H mmol/L
(22-27)
Sodium 130 L mmol/L
(135-145)
Chloride 87 L mmol/L
(98-107)
Carbon Dioxide 40 H mmol/L
(22-30)
BUN 6 L mg/dl
(7-17)
Creatinine 0.4 L mg/dL
(0.6-1.0)
Glucose 141 H mg/dl
(70-99)
Magnesium 1.3 L mg/dl
(1.6-2.3)
Total Protein 6.1 L g/dl
(6.3-8.2)
Lipase 12 L U/L
(23-300)
10/06/25 11:16
10/06/25 11:16
Vital Signs
Initial and Last Documented VS:
Initial Vital Signs
Pulse Ox
100
10/06/25 10:50
Last Documented Vital Signs
Temp Pulse Resp BP Pulse Ox
97.9 F 127 31 116/71 100
10/06/25 11:07 10/06/25 13:48 10/06/25 11:15 10/06/25 13:00 10/06/25 13:48
MDM/Problems Addressed
Differential Diagnosis Includes:
Incarcerated/strangulated hernia
Bowel obstruction
Stercoral colitis
Medication side effects
COPD exacerbation
Bowel perforation
Less concern for an acute infectious etiology
MDM/Problems Addressed:
70-year-old chronically ill female presenting to the ER for evaluation of an acute on chronic complication of worsening pain to her known large ventral abdominal hernia that has been deemed nonoperable by multiple different surgical groups. Patient
with recent admission to this facility for COPD exacerbation. She is persistently tachycardic into the 130s. Recently had an increase to her palliative care, there have been talks about possible hospice. Will obtain labs, CT imaging, pain control
with morphine. Patient to be admitted pending ER workup
Chronic conditions affecting care: COPD and Other (Known large ventral abdominal wall hernia)
Acute Exacerbation and/or Progression of Chronic Illness: COPD
*Radiology
Radiology exam reviewed: radiology read reviewed
*Pulse Oximetry
SaO2: 94
Nasal Cannula flow liters per minute: 4
Patient hypoxic: yes
*EKG
Interpreted by ED Provider?: Yes
Heart Rate: 134
Rate: tachycardiac
Rhythm: sinus
[place]: normal axis
Ischemia: no ischemia
*[employer] Service Technician Interpretation
Rate: tachycardiac
Heart Rate: 134
Rhythm: sinus
*Critical Care Note
Total Time (30-74mins, 75-104mins- exclusive of procedures): Not Applicable
Data Reviewed
Review of Other/Old Records Reveals: Labs, Records and Radiology Studies
Source: patient, records and family
Patient Management
Discussion with other providers: Hospitalist and Shoe Fitter
Escalation/DeEscalation of care consider admission/obs:
Case discussed with general surgery based off patient's presentation here but also because given her surgical disposition has already been made as a nonsurgical candidate I did not want to irradiate the patient unnecessarily. Given we will be
admitting the patient with the possibility that there could be free air/bowel perforation or other intra-abdominal pathology that could be causing the patient's pain we ultimately decided to pursue CT imaging. Surgery can consult on the patient as
needed. Hospitalist team was notified and accepts for continued evaluation and treatment.
ED Attending Note
-
Portions of this chart may have been created with voice recognition software.� Occasional wrong word or��sound alike� substitutions may have occurred due to the inherent limitations of voice recognition software.
Discharge Plan
Departure
Patient Disposition: Admit
Date of Disposition: 10/06/25
Time of Disposition: 12:38
Presentation/result/management discussed w/ accepting MD/DO: Hospitalist
Discharge Problem:
Incarcerated ventral hernia, COPD (chronic obstructive pulmonary disease)
Prescriptions:
No Action
ivabradine [Corlanor] 5 mg Tablet
5 mg PO BID
Linzess 145 mcg Capsule
145 mcg PO DAILY
Trintellix 20 mg Tablet
20 mg PO DAILY
fluticasone propion-salmeterol [Advair Diskus] 250-50 mcg/dose blister with device
1 inh INHALATION R BID
rosuvastatin 5 mg tablet
5 mg PO HS
bupropion HCl 300 mg tablet extended release 24 hr
300 mg PO DAILY
levocetirizine 5 mg tablet
5 mg PO DAILYPRN PRN (Reason: allergies)
dexlansoprazole 60 mg capsule,biphase delayed releas
60 mg PO DAILY
nifedipine 30 mg tablet extended release
30 mg PO DAILY Qty: 30 0RF
sennosides [senna] 8.6 mg Tablet
8.6 mg PO HSPRN PRN (Reason: Constipation)
alprazolam 2 mg tablet
2 mg PO QIDPRN PRN (Reason: anxiety)
therapeutic multivitamin Tablet
1 tab PO DAILY
montelukast 10 mg Tablet
10 mg PO HS
Spiriva Respimat 2.5 mcg/actuation mist
1 inh INHALATION R DAILY
docusate sodium 100 mg capsule
100 mg PO HSPRN PRN (Reason: Constipation)
lactulose 10 gram/15 mL Solution
10 g PO DAILYPRN PRN (Reason: constipation)
Dupixent Pen 300 mg/2 mL Pen Injector
300 mg SC Q2W
Rx Instructions:
every other sunday
ondansetron 8 mg Tablet,Disintegrating
8 mg PO [id number] PRN (Reason: nausea)
levalbuterol tartrate [Xopenex HFA] 45 mcg/actuation HFA aerosol inhaler
2 inh inhalation R Q6HPRN PRN (Reason: shortness of breath or wheezing)
morphine concentrate 20 mg/mL Syringe
5 mg SUBLINGUAL Q4HPRN PRN (Reason: severe pain) Qty: 0 0RF
prednisone 5 mg Tablet
5 mg PO BID
zolpidem [Ambien CR] 12.5 mg tablet,ext release multiphase
12.5 mg PO HSPRN PRN (Reason: sleep)
Interventions
Interventions:
*Risk Screen - Suicide Last Done: 10/06/25 11:07
*General Assessment Last Done: 10/06/25 11:07
*Neglect/Abuse Screening Last Done: 10/06/25 11:07
*ED COVID-19 Vaccine History Last Done: 10/06/25 11:07
*ED Influenza Vaccine History Last Done: 10/06/25 11:07
[facility] Fall Risk Assessment Tool Last Done: 10/06/25 11:07
ED- Cardiac Assessment Last Done: 10/06/25 11:07
ED- Neurological Assessment Last Done: 10/06/25 11:07
ED- Pulmonary Assessment Last Done: 10/06/25 11:07
Discharge Date and Time
Print Language: EGYPTIAN
[2025-10-06 11:23] LABS: Hematocrit 37.3 % (37.0-47.0); Hemoglobin 11.0 g/dL (12.0-16.0); Mean Corp Hgb Conc. 29.5 g/dL (33.0-37.0); Mean Corpuscular Volume 90.5 fL (81.0-99.0); Nucleated Red Blood Cells % 0 %; Platelet Count 267 10^3/uL (130-400); Red Cell Dist. Width 15.4 % (11.5-14.5)
[2025-10-06 11:48] LABS: ALT (SGPT) 19 U/L (0-35); AST (SGOT) 26 U/L (14-36); Albumin 3.5 g/dl (3.5-5.0); Alkaline Phosphatase 105 U/L (38-126); Blood Urea Nitrogen 6 mg/dl (7-17); Calcium 9.7 mg/dl (8.4-10.2); Chloride 87 mmol/L (98-107); Estimated Creatinine Clearance -51 ml/min; Glucose 141 mg/dl (70-99); Lipase 12 U/L (23-300); Magnesium 1.3 mg/dl (1.6-2.3); Potassium 4.7 mmol/L (3.5-5.1); Sodium 130 mmol/L (135-145); Total Protein 6.1 g/dl (6.3-8.2); eGFR > 60.00
[2025-10-06] MEDS: MORPHINE SULFATE 4 MG IV (11:48)
[2025-10-06 12:20] LABS: Carbon Dioxide 40 mmol/L (22-30)
[2025-10-06 12:23] LABS: Venous Blood Gas B.E. 16.7 mmol/L (-4 to +4); Venous Blood Gas O2 Sat % 78.2 %
--- NOTE | 2025-10-06 12:38 | HPS.HSE ---
Family Physician
-
Family Physician:
Chief Complaint
-
abdominal pain
sob
History of Present Illness
70-year-old female with past medical history of COPD (3 to 4 L nasal cannula at baseline), previous breast cancer, vdz-xrthegk-plrkswsps diabetes, known large nonoperable ventral hernia presenting to with abdominal pain associated with constipation.
she is not able to eat due to the pain. patient stated sob due to the pain. patient was evaluated in the ER yesterday due to the pain. she was sent home after morphine. patient stated, she was not able to sleep last night due to the pain. patient
has not had a bowel movement for 7-8 days. she complained of chills and feverish. denied RENTERIA, dizzy or syncope. she denied cough,congestion, chest pain. denied dysuria or hematuria.
Patient received a dose of Dilaudid, morphine, normal saline, Zosyn in ER. Admitting for further management
patient is on palliative care at home.
Medical History
Past Medical History
Past Medical History: Reports Other
Additional Past Medical History:
End-stage COPD, oxygen dependent, tricuspid valve disease, depression, breast cancer
Past Surgical History: Reports Other
Additional Past Surgical History:
Lumpectomy
Social History
Tobacco: Former Smoker
Alcohol: Former
Drug: None
Living: With Family
Family History
Family History: Not pertinent
Allergies / Home Medications
Allergies reflects when Allergies were last updated in [facility].
Home Medications with original date entered in [facility]
Allergy/Medication List:
Allergies
Allergy/AdvReac Type Severity Reaction Status Date / Time
Iodinated Contrast Media Allergy Tongue Verified 10/03/25 13:29
Swelling
Iodine and Iodide Containing Allergy Tongue Verified 10/03/25 13:29
Produc Swelling
shellfish derived Allergy Tongue Verified 10/03/25 13:29
Swelling
aspirin AdvReac Nausea / Verified 12/06/25 13:29
Vomiting
ibuprofen AdvReac upset Verified 10/03/25 13:29
stomach
Home Medications
bupropion HCl 300 mg 24 hr tablet, extended release 300 mg PO DAILY Mental Health/Anxiety 02/04/23
dexlansoprazole 60 mg capsule,biphase delayed release 60 mg PO DAILY Gastrointestinal issue 02/04/23
fluticasone 250 mcg-salmeterol 50 mcg/dose blistr powdr for inhalation (Advair Diskus) 1 inh inhalation R BID Lung/breathing issues 02/04/23
ivabradine 5 mg tablet (Corlanor) 5 mg PO BID Heart disease/condition 02/04/23
levocetirizine 5 mg tablet 5 mg PO DAILYPRN PRN allergies 02/04/23
linaclotide 145 mcg capsule (Linzess) 145 mcg PO DAILY Constipation 02/04/23
rosuvastatin 5 mg tablet 5 mg PO HS High cholesterol 02/04/23
vortioxetine 20 mg tablet (Trintellix) 20 mg PO DAILY Mental Health/Anxiety 02/04/23
nifedipine 30 mg tablet,extended release 30 mg PO DAILY #30 tabs 02/12/23
sennosides 8.6 mg tablet (senna) 8.6 mg PO HSPRN PRN Constipation 05/31/23
alprazolam 2 mg tablet 2 mg PO QIDPRN PRN anxiety 02/01/24
docusate sodium 100 mg capsule 100 mg PO HSPRN PRN Constipation 09/12/24
montelukast 10 mg tablet 10 mg PO HS Lung/Breathing Issues 09/12/24
therapeutic multivitamin 1 tab PO DAILY Supplement 09/12/24
tiotropium bromide 2.5 mcg/actuation mist for inhalation (Spiriva Respimat) 1 inh inhalation R DAILY Lung/Breathing Issues 09/12/24
dupilumab 300 mg/2 mL subcutaneous pen injector (Dupixent) 300 mg SC Q2W Lung/Breathing Issues 03/06/25
lactulose 10 gram/15 mL oral solution 10 g PO DAILYPRN PRN constipation 03/06/25
ibuprofen 200 mg tablet (Advil) 400 mg PO Q8HPRN PRN mild pain 09/20/25
levalbuterol tartrate 45 mcg/actuation aerosol inhaler (Xopenex HFA) 2 inh inhalation R Q6HPRN PRN shortness of breath or wheezing 09/20/25
ondansetron 8 mg disintegrating tablet 8 mg PO [id number] PRN nausea 09/20/25
morphine concentrate 20 mg/mL oral syringe (FOR ORAL USE ONLY) 5 mg (0.25 mL) sublingual Q4HPRN PRN severe pain #0 mL 09/23/25
zolpidem 12.5 mg tablet,extended release,multiphase (Ambien CR) 10 mg (0.8 x 12.5 mg) PO HSPRN PRN sleep #0 tabs 09/23/25
prednisone 5 mg tablet 5 mg PO BID 10/03/25
Review of Systems
-
Constitutional: Reports No Symptoms
EENT: Reports No Symptoms
Respiratory: Reports Trouble Breathing
Cardiac: Reports No Symptoms
Abdomen/GI: Reports Constipated and Other (Poor appetite)
: Reports No Symptoms
Musculoskeletal: Reports No Symptoms
Skin: Reports No Symptoms
Neurological: Reports No Symptoms
Endocrine: Reports No Symptoms
Hematologic/Lymphatic: Reports No Symptoms
Psych: Reports No Symptoms
Physical Exam
Vital Signs
Vital Signs
Temp Pulse Resp BP Pulse Ox
97.9 F 132 31 123/78 89
10/06/25 11:07 10/06/25 12:15 10/06/25 11:15 10/06/25 12:00 10/06/25 12:15
Physical Exam
General: Well Developed, Well Nourished and No Apparent Distress
HEENT: NormoCephalic, Moist mucous membranes and Atraumatic
Respiratory: Decreased Breath Sounds
Cardiac: S1/S2 and Regular Rhythm; No Murmur or Rub
GI: Soft, Non Tender, Non Distended, Normal Bowel Sounds and Other (Ventral hernia); No Organomegaly
Rectal: Deferred by Provider
Musculoskeletal: No Clubbing, No Cyanosis and No Edema
Skin: No Rash
Neuro: AO x 3 and Nonfocal/grossly intact
Psych: Calm
Laboratory Results
-
10/06/25 11:16
10/06/25 11:16
Laboratory Results
Lactic Acid 0.9 mmol/L (0.7-2.0) 10/06/25 11:16
Total Bilirubin 0.5 mg/dl (0.2-1.3) 10/06/25 11:16
AST 26 U/L (14-36) 10/06/25 11:16
ALT 19 U/L (0-35) 10/06/25 11:16
Alkaline Phosphatase 105 U/L (38-126) 10/06/25 11:16
Lipase 12 U/L (23-300) L 10/06/25 11:16
Data Reviewed
-
Lab Data: Labs Reviewed by me
Impression/Plan
-
#worsening abdominal pain/poor appetite
#hxt of non operable ventral hernia
-wbc 22.0
- CT abdomen pelvis pending
- IV Dilaudid continued
- Patient received a dose of Zosyn in ER
-sips of clear
-Fleet enema for constipation
-Lances, lactulose continued
- Surgery consulted
#acute hyponatremia concern for hypovolemia
-na 130
-fluids continued
#hypomagnesemia
-mag 1.3
-oral mag
-BMP in am
#hxt of COPD
# Chronic O2 dependent 3-4 at home
-chest x ray with Hyperaeration suggests an asthmatic type process or emphysema
- Singulair continued
- Nebs from home continue
- Prednisone continued
#Primary hypertension
- continue nifedipine
#Hyperlipidemia
-Statin continued
#Severe esophagitis
- continue dexlansoprazole
#Severe anxiety
- continue alprazolam, bupropion, Trintellix
#Sinus tachycardia
- continue ivabradine
Code status: DNR
DVT prophylaxis: Lovenox Sq
patient is under palliative care. CM consulted for Hospice consult.
--- NOTE | 2025-10-06 12:42 | W.PN.UPDATE ---
Update Note
Progress Note Update
This note serves as an addendum to the H&P by merchandising internship ALBERT�
Ladi Kingsley
HPI
70F lives with son on palliative care
PMHX: Chronically ill COPD (3 to 4 L nasal cannula at baseline), previous breast cancer, xfy-xijqpbv-gdytksjnp diabetes, known large nonoperable ventral hernia seen at ER:
- via EMS from her son's home where she lives for evaluation of severe abdominal pain and shortness of breath stating to me that the pain in her abdomen is what is causing her to feel short of breath. - the patient here on Sunday to the emergency
department for evaluation of diminished p.o. intake and generalized weakness that has only worsened since taking her home after evaluation in the ER. - at the point where patient cannot tolerate any food or liquid at home, due to the pain was
unable to get the patient up on his own today which is not typical for the patient.
- No reported fevers or chills.
ROS :
' I want to go hospice care' she daid in the presense of daughter and
Patient has been on an increased dose of morphine as part of her palliative care regimen and son notes that patient has not had a bowel movement in a few days.
Son also notes patient has what appears to be sacral/buttock wounds that he noticed over the last few days as well.
Relevant VS
Selected Entries
10/06/25
11:07
Temp 97.9 F
Pulse 133
Resp Rate 30
Blood pressure 118/73
SaO2 93
Nasal Cannula flow liters per minute 3
PE
cachectic and malnourished BMI 15.8
Gen: alert and approriate
HEENT:anicteric
Neck:
Lungs:
Cor:
Abdomen:�
CAD APPLICATION SUPPORT SPECIALIST:
MS:
Psych:
Relevant Data
10/03/25 10/06/25
14:06 11:16
WBC 41.1 H* 22.0 H
Hgb 11.1 L 11.0 L
Plt Count 290 267
Immature Gran % 1.2 H 0.5
Neutrophils % 89.6 H 84.1 H
VBG
03/11/25 10/06/25
04:25 12:06
VBG pH 7.40 7.36
VBG pCO2 77 H* 81 H*
VBG pO2 72 H 48
VBG HCO3 47.7 H 45.8 H
10/03/25 10/06/25
14:06 11:16
Sodium 130 L 130 L
Potassium 4.0 4.7
Chloride 91 L 87 L
Carbon Dioxide 36 H 40 H
BUN 6 L
Creatinine 0.5 L 0.4 L
eGFR > 60.00 > 60.00
Magnesium 1.3 L
Troponin I 0.024
Lipase 12 L
Pending LA
CXR: Hyperaeration suggests an asthmatic type process or emphysema
10/06/[address] AP
10/03/25 CT AP wo
Grossly stable large ventral abdominal hernia containing prominent loops of transverse colon, without overt obstruction.
Moderate to marked diffuse colonic stool burden.
Last hospitalist admission:09/20/25 -Date of Discharge: 09/23/25
DC DX: Acute COPD Exacerbation, chronic ventral hernia with chronic pain
ASSESSMENT & PLAN
Pending Rx reconciliation
Chronically ill , malnourished, cachexia, BMI 19 multiple comorbidities:
Tachycardia , Class III/ Dyspnea
Acute on chronic hypoxic hypercapnic RF with higher O2 demand due to COPD flare
HX advanced or ES COPD on chr home O2
Chr O2 and PO prednisone dependent and HX chr intermittent leucocytosis
Moderate to marked diffuse colonic stool burden ( 10/03/25 CT AP ) - DELFIN in the presence of RN : empty vault , no distal fecal impaction
Abdominal pain and constipation associated with narcotic use - N BM for last 7-8 days : Chronic opiate dependence for pain
Chronic Constipation-Continue Colace/senna/Linzess
Known large VH
HX POS MRSA ( Aug 2024)
- Hospice care consult - case dw Daughter at bed side per wishes of patient
- for the time being - rectal enema, gentle IVF
- DNR
Prior PMX: somewhat stable
Benign Hypertension - on nifedipine
Hyperlipidemia-on statin
Depression and anxiety- c/w DANDY TENDER, Wellbutrin, Xanax and Trintellix
HX Insomnia- on Ambien as needed
Severe esophagitis/peptic ulcer disease- PO PPI
HX Left breast cancer with surgery in the past
HX Large Ventral Hernia
Hospitalist disused with patient and daughter / son in law at bed side in the presence of RN
Both patient and daughter acknowledged the poor prognosis
Opted for hospice care
DVT Px: LMWH
DNR
IP TLM
[2025-10-06 12:45] LABS: Troponin I 0.024 ng/ml
[2025-10-06] MEDS: NSS 1000 IV ×2 (12:45→18:05)
[2025-10-06] MEDS: ZOSYN 50 IV ×3 (12:46→23:33)
[2025-10-06] MEDS: DILAUDID 0.5 MG IV ×2 (12:46→19:43)
--- NOTE | 2025-10-06 14:39 | EDCM ---
Reviewed chart and met with daughter Sofiya bedside in ED. Lives with Sofiya in split level home, no DENIS, has first floor half bath, total of 8 steps up to bedroom and full bath.
Needs assistance with ADLs and personal care, ambulates with RW. Also has cane, shower chair and commode. Has O2 from [employer], uses 3-4 L NC.
Confirms prescription coverage.
Current with [facility]
PCP: Palliative Care, unsure of specific provider name
Pharmacy: Pharmacy in [place], have home delivery
Discharge disposition pending ongoing medical evaluation, CM will continue to follow for all discharge planning needs.
--- NOTE | 2025-10-06 15:56 | EDCM ---
Received consult, met with pt and her sister Awa bedside in ED. Pt lives alone in first floor apartment. Independent in ADLs and personal care, ambulates with RW. Has had several falls in past few weeks. She also has a commode and shower chair.
Current address is [address] in [place]. Pt's is currently in [facility] and will probably be staying for LTC.
Pt recently moved out of her home into her apartment. Her son Félix lives in the same complex, he is working on getting the home ready to be sold.
Pt's sister Awa lives in [place] and provides support.
Pt was seen by PT.
Pt does not want STR, wants to go home, [facility] in [facility].
[2025-10-06] MEDS: MAGNESIUM SULFATE 100 IV (16:32)
[2025-10-06 17:09] LABS: Urine Character Clear (Clear)
[2025-10-06] MEDS: LOVENOX 40 MG SC (18:06)
--- NOTE | 2025-10-06 19:29 | W.PN.SURGUPD ---
Surgical Update
Surgical Update
Chart reviewed. As previously discussed, patient is at high risk for operative complications. Plans to transition to hospice care. No plans or indications for surgical intervention as per patient's wishes. Please call if you would like further
surgical consultation and evaluation.
[2025-10-06] MEDS: ADVAIR HFA 115/21 MCG INHALER INH (19:57)
--- NOTE | 2025-10-06 21:00 | PTCARENOTE ---
Addendum entered by Christy Aviles RN 10/07/25 03:08:
Patient's HR in 130s, BP- 128/74. Updated House provider.
Addendum entered by Christy Aviles RN 10/07/25 01:46:
No changes from last assessment. Updated house provider. No new orders.
Original Note:
Patient HR in 120-130. bp- 126/71. RR- 34-36. oxygen sat- 94% on 4L. c/o 07/08 abdominal pain and ordered Dilaudid administered with good effect. Notified house provider. No new orders at this time
[2025-10-06] MEDS: DELTASONE 5 MG PO (21:36)
[2025-10-06] MEDS: SINGULAIR 10 MG PO (21:36)
[2025-10-06] MEDS: CRESTOR 5 MG PO (21:37)
[2025-10-06] MEDS: SENOKOT 8.6 MG PO (21:37)
[2025-10-07] VITALS (8 sets, daily range): BP systolic 111–130; BP diastolic 70–76; PULSE 124; O2SAT 95–96; BMI 16.7
[2025-10-07] MEDS: DILAUDID 0.5 MG IV ×4 (00:42→20:17)
[2025-10-07] MEDS: ZOSYN 50 IV ×2 (05:05→12:03)
[2025-10-07] MEDS: ADVAIR HFA 115/21 MCG INHALER 2 PUFF INH ×2 (08:00→19:19)
[2025-10-07] MEDS: SPIRIVA RESPIMAT 2.5 MCG 2 PUFF INH (08:00)
[2025-10-07] MEDS: WELLBUTRIN XL (24 hour extended release) 300 MG PO (08:58)
[2025-10-07] MEDS: PROCARDIA XL (EXTENDED RELEASE) 30 MG PO (08:58)
[2025-10-07] MEDS: SENOKOT 8.6 MG PO (08:59)
[2025-10-07] MEDS: PROTONIX 40 MG PO (08:59)
[2025-10-07] MEDS: DELTASONE 5 MG PO (08:59)
[2025-10-07] MEDS: MIRALAX 17 GRAMS PO (08:59)
[2025-10-07 09:08] LABS: Hematocrit 31.7 % (37.0-47.0); Hemoglobin 9.4 g/dL (12.0-16.0); Mean Corp Hgb Conc. 29.7 g/dL (33.0-37.0); Mean Corpuscular Volume 93.2 fL (81.0-99.0); Platelet Count 264 10^3/uL (130-400); Red Cell Dist. Width 15.5 % (11.5-14.5)
[2025-10-07] MEDS: NSS 1000 IV ×2 (09:57→22:24)
[2025-10-07 10:07] LABS: Blood Urea Nitrogen 7 mg/dl (7-17); Calcium 8.8 mg/dl (8.4-10.2); Chloride 90 mmol/L (98-107); Estimated Creatinine Clearance 57 ml/min; Glucose 89 mg/dl (70-99); Potassium 4.3 mmol/L (3.5-5.1); Sodium 132 mmol/L (135-145); eGFR > 60.00
--- NOTE | 2025-10-07 10:26 | VNURNOTE ---
Addendum entered by Geneva Guzman RN 10/08/25 09:51:
Rec'ed update from quality liaison Kay that pt wishes to resume with [facility] and Palliative care and then transition to hospice at a later date. [facility] resumption referral placed in [facility] and update relayed to [facility] team.
Original Note:
Chart reviewed. Patient is current with [facility]. Per notes, appears that plan is now hospice. Noted that CM referral for hospice is ordered. [facility] liaison remains available.
[2025-10-07 10:32] LABS: Carbon Dioxide 41 mmol/L (22-30)
--- NOTE | 2025-10-07 11:46 | CM ---
Patient daughter spoke with CM about plan for home hospice and family desire to remain with [facility] hospice as they were happy with [facility] in the recent past. CM sent tt to hospice and will send referral via all scripts.
Plan; home with [facility] hospice pending acceptance.
[2025-10-07] MEDS: ROXICODONE 5 MG PO ×2 (12:03→16:06)
--- NOTE | 2025-10-07 13:45 | W.PN.HOSP.TC ---
Today's Communication/Plan
-
Hospice evaluation and discharge planning
Assessment / Plan
Assessment / Plan
Impression
Patient is a 70 years old female with advanced emphysema COPD, chronic hypoxic/hypercarbic respiratory failure presents with progressively worsening shortness of breath and overall declining performance status at home.
Chronic hypoxic respiratory failure secondary to advanced COPD.
Large supraumbilical hernia
Left lower lobe process
Severe protein calorie malnutrition with BMI of 16
Conditions prior to admission
Advanced COPD with chronic hypoxic respiratory failure O2 dependent at home at around 4 L nasal cannula
Tobacco use disorder
Chronic anemia
Pulmonary cachexia
History of gastrointestinal hemorrhage secondary to gastric ulcers in 2022
Large hiatal hernia, nonoperable
History of breast carcinoma status postlumpectomy chemotherapy and radiation
Dyslipidemia hypertension
Diet-controlled diabetes
Hypothyroidism
Plan:
Acute on chronic shortness of breath in patient with advanced COPD and chronic respiratory failure, O2 dependent
Multifactorial likely due to persistent pain with large abdominal hernia and obviously low respiratory reserve.
Imaging reveals chronic right lower lobe process.
Afebrile.
Does not report increase of sputum production.
Noted with elevated white count but
? If this is an aspiration related to large ventral hernia.
Initiated antibiotics: Zosyn. Will narrow to Augmentin
Continue bronchodilators.
Continue oral corticosteroid/prednisone 5 mg twice daily at the maintenance.
With advanced end-stage COPD, ongoing goals of care discussion with plan to transition to home hospice.
Large ventral hernia
Patient is not candidate for surgical intervention given advanced lung condition.
Surgery would appreciate
Continue conservative management
Adjust analgesic regimen
Anxiety.
Benzodiazepines dependent.
Continue preadmission regimen including bupropion, alprazolam, zolpidem, Trintellix
Essential hypertension. Continue nifedipine
Chronic sinus tachycardia on ivabradine HEAD BAKER
Anticipated Discharge: 24 - 48 hours
Subjective/Interval History
-
Date of Service: October 07, 2025
Objective Data
-
Labs:
Laboratory Results
10/07/25
08:40
WBC 12.4 H
Hgb 9.4 L
Hct 31.7 L
Plt Count 264
Sodium 132 L
Potassium 4.3
Chloride 90 L
Carbon Dioxide 41 H
BUN 7
Creatinine 0.5 L
Glucose 89
Calcium 8.8
Vital Signs:
Vital Signs
Temp Pulse Resp BP Pulse Ox
97.6 F 121 16 123/76 100
10/07/25 11:00 10/07/25 11:00 10/07/25 11:00 10/07/25 11:00 10/07/25 11:00
I&O
10/06/25 10/07/25 10/08/25
06:59 06:59 06:59
Intake Total 980 / 980
Output Total 250 / 250
Balance 980 / 980 -250 / -250
Physical Exam
-
General: Well Developed and No Apparent Distress
HEENT: Normocephalic, Atraumatic and Moist Mucous Membranes
Respiratory: Rhonchi (With distant breath sounds)
Cardiac: Regular Rhythm and S1/S2; Negative Murmur, Rub or Gallop
GI: Soft, Nontender, Nondistended, Normal Bowel Sounds and Other (Large ventral hernia); Negative Organomegaly
Rectal: Deferred by Provider
Musculoskeletal: No Clubbing, No Cyanosis and No Edema
Skin: Negative Rash
Neuro: Nonfocal/Grossly Intact
--- NOTE | 2025-10-07 15:00 | HOSPNOTE ---
Met with family and discussed hospice and the philosophy. They would like to discuss as a family and I will meet with them in the am for a decision. More information to follow.
--- NOTE | 2025-10-07 15:33 | PN.CDI ---
CDI
- -
CDI:
Physician Documentation Request
Admit Date: 10/06/25 14:17
Dear Doctor Romie,
Please review the following and provide your response in the progress notes.
Clinical Indicators:
Pt admitted with COPD exacerbation /Hyponatremia
Documented per nursing wound care note 10/07 Present on admission sacrum ..pressure injury stage 2 ...dressing dry and intact...'
Physician documentation of the type and location of wounds is required for compliant documentation. Based on the above clinical findings and your assessment, please provide the following in your progress note:
1. Location of the ulcer/wound, including laterality.
2. Type (etiology) of ulcer/wound:
- Pressure (decubitus) ulcer
- Non-pressure ulcer
-Other ( please specify)
Use of terms such as suspected, likely, concern for, or probable (associated with a specific diagnosis that is being evaluated, monitored, or treated as if it exists) are acceptable and can be coded in the inpatient setting, when documented at the
time of discharge.
Thank you,
Fauzia Villeda RN
CDI Specialist
Fields Text
Please use your independent medical judgment in providing your response.
*Source: National Pressure Ulcer Advisory Panel (NPUAP)
--- NOTE | 2025-10-07 15:43 | PN.CDI ---
CDI
- -
CDI:
Physician Documentation Request
Admit Date: 10/06/25 14:17
Dear Doctor Romie,
Please review the following and provide your response in the progress notes.
Clinical Indicators:
Pt admitted with COPD exacerbation /Hyponatremia
Progress note 10/07, ' Imaging reveals chronic right lower lobe process.Afebrile.Does not report increase of sputum production.Noted with elevated white count but? If this is an aspiration related to large ventral hernia.Initiated antibiotics:
Zosyn. Will narrow to Augmentin...'
CT scan ,' There is a rounded area of increased density in the right lower lobe which has doubled in size from the recent study suggesting pneumonia...'
Please provide a diagnosis for the above findings/ Use of IV abx :
Aspiration Pneumonia
Aspiration Pneumonitis
Aspiration only
Other ( please specify)
Use of terms such as suspected, likely, concern for, or probable (associated with a specific diagnosis that is being evaluated, monitored, or treated as if it exists) are acceptable and can be coded in the inpatient setting, when documented at the
time of discharge.
Thank you,
Fauzia Villeda RN
CDI Specialist
[place] Text
Please use your independent medical judgment in providing your response.
[2025-10-07] MEDS: LOVENOX 40 MG SC (17:52)
[2025-10-07] MEDS: ZOFRAN 4 MG IV (20:16)
[2025-10-07] MEDS: SENOKOT PO (20:27)
[2025-10-07] MEDS: DELTASONE PO (20:27)
[2025-10-07] MEDS: XANAX 2 MG PO (22:25)
[2025-10-07] MEDS: CRESTOR 5 MG PO (22:25)
[2025-10-07] MEDS: SINGULAIR 10 MG PO (22:25)
[2025-10-08 03:00] VITALS: BP 134/86
[2025-10-08] MEDS: DILAUDID 0.5 MG IV ×4 (04:45→15:33)
[2025-10-08] MEDS: FLUSH (NSS) 2 FLUSH IV (04:46)
[2025-10-08] MEDS: SPIRIVA RESPIMAT 2.5 MCG 2 PUFF INH (07:27)
[2025-10-08] MEDS: ADVAIR HFA 115/21 MCG INHALER 2 PUFF INH (07:27)
[2025-10-08 07:28] VITALS: BP 127/69
[2025-10-08] MEDS: DELTASONE PO (07:56)
[2025-10-08] MEDS: WELLBUTRIN XL (24 hour extended release) PO (07:56)
[2025-10-08] MEDS: MIRALAX PO (07:56)
[2025-10-08] MEDS: PROCARDIA XL (EXTENDED RELEASE) PO (07:56)
[2025-10-08] MEDS: SENOKOT PO (07:56)
[2025-10-08] MEDS: PROTONIX PO (07:56)
[2025-10-08] MEDS: ZOFRAN 4 MG IV (08:10)
[2025-10-08] MEDS: XANAX 2 MG PO (09:58)
--- NOTE | 2025-10-08 10:13 | HOSPNOTE ---
Spoke with patient this am the plan is to be discharged today and continue with [facility]/Palliative care and sign onto hospice services at a later date. Palliative, [facility] and CM aware of plan. I told the daughter to call me (she has my direct number) when
hospice is wanted/needed.
--- NOTE | 2025-10-08 10:43 | CM ---
Patient spoke with CM in room on [address]. Patient plan is for discharge home with [facility] and palliative care. IMM provided and signed copy placed on chart. Patient daughter to transport with portable O2 that patient has. CM will update [facility] liaison
and will continue to follow for discharge planning needs.
Plan; home with [facility], Palliative care to follow transition to hospice when patient choses
[2025-10-08 11:32] VITALS: BP 107/71
--- NOTE | 2025-10-08 13:06 | W.DS.TRANS ---
DC Summary - [facility] Supervisor
-
Discharge Instructions:
Discharge Diagnosis/Procedures Chronic hypoxic respiratory failure secondary to
advanced COPD.
Large supraumbilical hernia
Left lower lobe process
Severe protein calorie malnutrition with BMI of
16
Diet Regular
Instructions:
Stand-Alone Forms:
Changes to Home Medications: No
Discharge Medications:
DC Medications w/original date entered in [facility]
bupropion HCl 300 mg 24 hr tablet, extended release 300 mg PO DAILY Mental Health/Anxiety 02/04/23
dexlansoprazole 60 mg capsule,biphase delayed release 60 mg PO DAILY Gastrointestinal issue 02/04/23
fluticasone 250 mcg-salmeterol 50 mcg/dose blistr powdr for inhalation (Advair Diskus) 1 inh inhalation R BID Lung/breathing issues 02/04/23
ivabradine 5 mg tablet (Corlanor) 5 mg PO BID Heart disease/condition 02/04/23
levocetirizine 5 mg tablet 5 mg PO DAILYPRN PRN allergies 02/04/23
linaclotide 145 mcg capsule (Linzess) 145 mcg PO DAILY Constipation 02/04/23
rosuvastatin 5 mg tablet 5 mg PO HS High cholesterol 02/04/23
vortioxetine 20 mg tablet (Trintellix) 20 mg PO DAILY Mental Health/Anxiety 02/04/23
nifedipine 30 mg tablet,extended release 30 mg PO DAILY #30 tabs 02/12/23
sennosides 8.6 mg tablet (senna) 8.6 mg PO HSPRN PRN Constipation 05/31/23
alprazolam 2 mg tablet 2 mg PO QIDPRN PRN anxiety 02/01/24
docusate sodium 100 mg capsule 100 mg PO HSPRN PRN Constipation 09/12/24
montelukast 10 mg tablet 10 mg PO HS Lung/Breathing Issues 09/12/24
therapeutic multivitamin 1 tab PO DAILY Supplement 09/12/24
tiotropium bromide 2.5 mcg/actuation mist for inhalation (Spiriva Respimat) 1 inh inhalation R DAILY Lung/Breathing Issues 09/12/24
dupilumab 300 mg/2 mL subcutaneous pen injector (Dupixent) 300 mg SC Q2W Lung/Breathing Issues 03/06/25
lactulose 10 gram/15 mL oral solution 10 g PO DAILYPRN PRN constipation 03/06/25
levalbuterol tartrate 45 mcg/actuation aerosol inhaler (Xopenex HFA) 2 inh inhalation R Q6HPRN PRN shortness of breath or wheezing 09/20/25
ondansetron 8 mg disintegrating tablet 8 mg PO [id number] PRN nausea 09/20/25
morphine concentrate 20 mg/mL oral syringe (FOR ORAL USE ONLY) 5 mg (0.25 mL) sublingual Q4HPRN PRN severe pain #0 mL 09/23/25
prednisone 5 mg tablet 5 mg PO BID 10/03/25
zolpidem 12.5 mg tablet,extended release,multiphase (Ambien CR) 12.5 mg PO HSPRN PRN sleep 10/06/25
amoxicillin 500 mg-potassium clavulanate 125 mg tablet 1 tab PO Q12 #10 tabs 10/08/25
Home Medication Changes
Pending Results: No
[2025-10-08 14:41] VITALS: BP 111/70
== END 2025-10-08 17:02 | disposition home health service (06) | DRG 177 ==
LOC: 2 NORTH 14:17
PROVIDERS: Physician Assistant Medical; Registered Nurse; ADMITTING PHYSICIAN Internal Medicine; ATTENDING PHYSICIAN Internal Medicine; EMERGENCY PHYSICIAN Emergency Medicine
DX: J69.0 Pneumonitis due to inhalation of food and vomit (principal); E43 Unspecified severe protein-calorie malnutrition; J44.1 Chronic obstructive pulmonary disease with (acute) exacerbation; J96.11 Chronic respiratory failure with hypoxia; Z68.1 Body mass index [BMI] 19.9 or less, adult; R64 Cachexia; K43.6 Other and unspecified ventral hernia with obstruction, without gangrene; E87.1 Hypo-osmolality and hyponatremia; Z87.891 Personal history of nicotine dependence; Z66 Do not resuscitate; Z51.5 Encounter for palliative care; F41.9 Anxiety disorder, unspecified; F32.A Depression, unspecified; I10 Essential (primary) hypertension; L89.152 Pressure ulcer of sacral region, stage 2; Z99.81 Dependence on supplemental oxygen
CPT/HCPCS: 71045; 74176; 80048; 80053; 81003; 81015; 82805; 83605; 83690; 83735; 84484; 85025; 85027; 87086; 93005; 94640; 96365; 96367; 96375; 97163; 97167; 97530; 99285

== ENCOUNTER 2025-10-18 03:19 | Emergency (ER) | payer MEDICARE, SELFPAY ==
[2025-10-18 03:30] VITALS: BP 78/69
[2025-10-18 03:46] VITALS: BP 91/69
[2025-10-18 04:21] VITALS: BP 82/61
[2025-10-18 05:00] VITALS: BP 81/58
[2025-10-18 06:00] VITALS: BP 107/44
--- NOTE | 2025-10-18 06:28 | ED.GENMED ---
History of Present Illness
General
Chief Complaint: Abdominal Symptoms
Source: patient
Exam Limitations: clinical condition and altered mental status
Time Seen by Provider: 10/18/25 06:09
Nursing documentation reviewed up to this point in time: agreed with
History of Present Illness
History of Present Illness:
Patient with history of COPD and lung/abdominal cancer, currently receiving palliative care with plan to transition to hospice service, presents to ED from home after multiple episodes of vomiting. Upon arrival, patient with continued episodes of
vomiting, with what appears to be coffee-ground emesis, along with hypotension and patient complaining of significant abdominal pain. Nursing staff confirmed with patient regarding her wishes, to be comfortable without any invasive procedures.
Discussed with patient's daughter who lives with patient and confirmed patient's current medical condition, which is deemed to be terminal. As such, daughter requests that patient to be kept comfortable.
Past History
Past History
ED Past Medical History: Asthma, Cancer (Remote history of breast cancer), COPD, NIDDM and Other (Chronic abdominal wall hernia, chronic abdominal pain, upper GI bleed January 2023, Chronic cough, Ulcers)
ED Past Surgical History: Cholecystectomy, Gynecological (Hysterectomy) and Other (left Lumpectomy)
Patient has exhibited threatening behavior?: No
PSI?: No
Social History
Tobacco: Former smoker
Alcohol: Occasional
Drug: None
Personal:
Living: with family
Employment: Retired
Family History
Family History: Other and Unable to obtain
Review of Systems
Review of Systems
Allergies reviewed?: Yes
Unable to obtain full review of systems at this time due to: due to acuity
All Other Systems: Not applicable
Phy Exam
Physical Exam
Physical Exam:
Physical Exam
General: moderate distress, ill appearing. cachectic and weak appearing
Head: nc/at.
Neck: supple. no jvd
Heart: bradycardic
Lungs: no acute respiratory distress. diminished breath sounds bilaterally
Abdomen: normal bowel sounds. no distention
Neuro: somnolent, not responsive to verbal/physical stimuli
Skin: no rash
Extremities: no edema.
Course
Orders/Labs/Results
Orders:
Orders
10/18/25 05:16
Morphine Sulfate 2 mg IV NOW STA
Ondansetron Injectable [Zofran] 4 mg IV NOW STA
10/18/25 05:17
Lorazepam [Ativan] 0.5 mg IV NOW STA
Vital Signs
Initial and Last Documented VS:
Initial Vital Signs
Pulse
129
10/18/25 03:28
Last Documented Vital Signs
Pulse Resp BP
57 25 107/44
10/18/25 06:00 10/18/25 06:15 10/18/25 06:00
MDM/Problems Addressed
MDM/Problems Addressed:
Per nursing staff, patient was able to provide some answers to questions when first arrived in ED. Patient received small dose of morphine along with Zofran upon arrival for comfort. During observation afterwards, patient noted to become less
responsive with bradycardia.
Discussed with patient's daughter, Sofiya Pan, who informs me that she along with other family numbers are well aware of patient's poor prognosis. Confirms patient's wishes to be not resuscitated via ventilator/CPR. Patient to be kept
comfortable until family arrives.
6:20 AM: Called to bedside as patient no longer with palpable pulse. 6:25 AM. Patient pronounced.
Discussed with medical imaging specialist's office, Eli Morganaster - body will be released to the family
Discussed with primary care physician, Dr.Alex Monroe.
Patient's son arrived in ED shortly afterwards and discussed findings.
*Pulse Oximetry
Patient hypoxic: yes
*Critical Care Note
Total Time (30-74mins, 75-104mins- exclusive of procedures): Not Applicable
ED Attending Note
-
Portions of this chart may have been created with voice recognition software.� Occasional wrong word or��sound alike� substitutions may have occurred due to the inherent limitations of voice recognition software.
Discharge Plan
Departure
Patient Disposition:
Date of Disposition: 10/18/25
Time of Disposition: 06:28
Discharge Problem:
PEA (Pulseless electrical activity)
Prescriptions:
No Action
ivabradine [Corlanor] 5 mg Tablet
5 mg PO BID
Linzess 145 mcg Capsule
145 mcg PO DAILY
Trintellix 20 mg Tablet
20 mg PO DAILY
fluticasone propion-salmeterol [Advair Diskus] 250-50 mcg/dose blister with device
1 inh INHALATION R BID
rosuvastatin 5 mg tablet
5 mg PO HS
bupropion HCl 300 mg tablet extended release 24 hr
300 mg PO DAILY
levocetirizine 5 mg tablet
5 mg PO DAILYPRN PRN (Reason: allergies)
dexlansoprazole 60 mg capsule,biphase delayed releas
60 mg PO DAILY
nifedipine 30 mg tablet extended release
30 mg PO DAILY Qty: 30 0RF
sennosides [senna] 8.6 mg Tablet
8.6 mg PO HSPRN PRN (Reason: Constipation)
alprazolam 2 mg tablet
2 mg PO QIDPRN PRN (Reason: anxiety)
therapeutic multivitamin Tablet
1 tab PO DAILY
montelukast 10 mg Tablet
10 mg PO HS
Spiriva Respimat 2.5 mcg/actuation mist
1 inh INHALATION R DAILY
docusate sodium 100 mg capsule
100 mg PO HSPRN PRN (Reason: Constipation)
lactulose 10 gram/15 mL Solution
10 g PO DAILYPRN PRN (Reason: constipation)
Dupixent Pen 300 mg/2 mL Pen Injector
300 mg SC Q2W
Rx Instructions:
every other tyson
ondansetron 8 mg Tablet,Disintegrating
8 mg PO [id number] PRN (Reason: nausea)
levalbuterol tartrate [Xopenex HFA] 45 mcg/actuation HFA aerosol inhaler
2 inh inhalation R Q6HPRN PRN (Reason: shortness of breath or wheezing)
morphine concentrate 20 mg/mL Syringe
5 mg SUBLINGUAL Q4HPRN PRN (Reason: severe pain) Qty: 0 0RF
prednisone 5 mg Tablet
5 mg PO BID
zolpidem [Ambien CR] 12.5 mg tablet,ext release multiphase
12.5 mg PO HSPRN PRN (Reason: sleep)
amoxicillin-pot clavulanate 500-125 mg Tablet
1 tab PO Q12 Qty: 10 0RF
Referrals:
UNKNOWN - PT DOES,NOT KNOW [Family Provider]
Interventions
Interventions:
*General Assessment Last Done: 10/18/25 03:49
*Neglect/Abuse Screening Last Done: 10/18/25 03:49
*ED COVID-19 Vaccine History Last Done: 10/18/25 03:49
*ED Influenza Vaccine History Last Done: 10/18/25 03:49
[facility] Fall Risk Assessment Tool Last Done: 10/18/25 03:58
*Risk Screen - Suicide (C-SSRS) Last Done: 10/18/25 03:49
*Nursing Disposition Last Done: 10/18/25 10:10
[facility] Assessment Last Done: 10/18/25 03:58
Discharge Date and Time
Discharge Date/Time: 10/18/25 10:10
Print Language: URDU
== END 2025-10-18 10:10 | disposition expired ==
LOC: EMR 03:19
PROVIDERS: EMERGENCY PHYSICIAN Emergency Medicine
DX: I46.9 Cardiac arrest, cause unspecified (principal); R09.02 Hypoxemia; C34.90 Malignant neoplasm of unspecified part of unspecified bronchus or lung; C76.2 Malignant neoplasm of abdomen; E11.9 Type 2 diabetes mellitus without complications; J44.89 Other specified chronic obstructive pulmonary disease; Z51.5 Encounter for palliative care; Z79.84 Long term (current) use of oral hypoglycemic drugs; Z85.3 Personal history of malignant neoplasm of breast; Z87.891 Personal history of nicotine dependence
CPT/HCPCS: 99283